=== PATIENT | male | born 1985 | race Caucasian/White ===

== ENCOUNTER 2020-11-07 15:48 | Outpatient (REF) | payer MEDICAID, SELFPAY ==
--- NOTE | ~2020-11-07 | XR_ITS ---
EXAMINATION: XR ANKLE, LEFT CLINICAL INFORMATION: Left ankle pain COMPARISON: None TECHNIQUE: AP, lateral, and mortise views of the left ankle. FINDINGS: The bones and soft tissues are normal aside from mild soft tissue swelling laterally. No fracture. Alignment is anatomic. Joint spaces are maintained. No joint effusion. XR/XR ankle LT min 3V IMPRESSION: Mild soft tissue swelling laterally but no fracture seen.
== END 2020-11-07 15:49 | disposition home or self-care (01) ==
LOC: HO.XRAY 15:48
PROVIDERS: PCP Internal Medicine Geriatric Medicine; Visit Provider Internal Medicine Geriatric Medicine
DX: M25.572 Pain in left ankle and joints of left foot (principal)
CPT/HCPCS: 73610

== ENCOUNTER 2021-04-19 05:22 | Inpatient (IN) | payer MEDICAID, OTHER, SELFPAY ==
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
--- NOTE | ~2021-04-19 | XR_ITS ---
EXAMINATION: XR TOES, RIGHT CLINICAL INFORMATION: Rule out fracture. COMPARISON: None TECHNIQUE: 3 views of the right toes were obtained. FINDINGS: No acute fracture or malalignment. Bone mineralization is normal. Mild soft tissue swelling at the fourth toe. Joint spaces appear normal. The adjacent toes are unremarkable. XR/XR toe RT min 2V IMPRESSION: No appreciable phalangeal fractures of the right toes.
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
--- NOTE | ~2021-04-19 | XR_ITS ---
EXAMINATION: XR CERVICAL SPINE LATERAL VIEW CLINICAL INFORMATION: Pain. COMPARISON: CT cervical spine 04/24/2021 TECHNIQUE: Single portable frontal view of the cervical spine is performed as per request. FINDINGS: There is rightward tilting cervical spine similar to the CT study. There is no visible interval bony abnormality. Lung apices are clear. No cervical rib.
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
[2021-04-19 05:28] VITALS: BP 112/68; PULSE 74; RESP 18; TEMP 36.4; O2SAT 100; BMI 23.6
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
--- NOTE | 2021-04-19 06:02 | PC.NURSE ---
patient moved to 22 due to another patients behaviors working up this patient.
--- NOTE | 2021-04-19 06:05 | ED_ITS ---
HPI - Psych General Chief Complaint: Psychiatric Symptoms Stated Complaint: PSYCH EVAL,OFF MEDS Time Seen by Provider: 04/19/21 05:55 Source: patient Mode of arrival: ambulatory Limitations: no limitations History of Present Illness HPI Narrative: Patient comes to the emergency room asking to be restarted on his medications Seroquel and Cymbalta. Patient also requesting to be sent to respite. Patient states that he was recently discharged from [facility], he was there for about 5 weeks. Patient states that there was some miscommunication with his prescriptions, the pharmacy never received them. Patient was not able to get in touch with the providers full originally prescribed the Cymbalta and the Seroquel. Patient also complaining of moist itchy feet. Related Data Allergies Allergy/AdvReac Type Severity Reaction Status Date / Time haloperidol [From HALDOL] Allergy Severe DYSTONIA Unverified 02/14/20 17:15 ziprasidone [From GEODON] Allergy Severe DYSTONIA Unverified 02/14/20 17:15 Review of Systems Review of Systems: Constitutional : No Weight loss, No Fever, No Chills, No Night Sweats, No Fatigue, No Malaise ENT/Mouth : No Hearing loss, No Ear Pain, No Nasal Congestion, No Sinus Pain, No Hoarseness, No sore throat, No Rhinorrhea, No Swallowing Difficulty Eyes: No Eye Pain, No Swelling, No Redness, No Foreign Body, No Discharge, No Vision Changes Cardiovascular : No Chest Pain, No SOB, No Dyspnea on Exertion, No Orthopnea, No Edema, No Palpitations Respiratory : No Cough, No Sputum, No Wheezing, No Smoke Exposure, No Dyspnea Gastrointestinal : No Nausea, No Vomiting, No Diarrhea, No Constipation, No abdominal Pain, No Hematochezia, No Melena Genitourinary : no irregular bleeding, No Dysuria, No Urinary Frequency, No Hematuria, No Urinary Incontinence, No Urgency, No Flank Pain, No Urinary Flow Changes, No Hesitancy Musculoskeletal : No joint pain, No Myalgias, No Joint Swelling Skin : Complaining of moist itchy feet Neuro : No Weakness, No Numbness, No Paresthesias, No Loss of Consciousness, No Dizziness, No Headache Psych patient denies suicidal or homicidal ideation, patient requesting to be restarted on psych meds Heme/Lymph: No Bruising, No Bleeding,No Lymphadenopathy Endocrine : No Polyuria, No Polydipsia, No Temperature Intolerance PMF Past Medical History Medical History Asthma Bipolar 1 disorder, depressed Psychosis Schizoaffective disorder Physical Exam Vital Signs: Vital Signs: Last Vital Signs Temp 97.6 F 04/19/21 05:28 Pulse 74 04/19/21 05:28 Resp 18 04/19/21 05:28 BP 112/68 04/19/21 05:28 Pulse Ox 100 04/19/21 05:28 Body Mass Index 23.6 Const: Other: Appearance: Alert. Oriented X3. No acute distress. Eyes: Pupils equal, round and reactive to light. Old eye echemosis healing ENT: Pharynx normal. Neck: Normal inspection. Neck supple. No lymph nodes noted. No crepitus CVS: Normal heart rate and rhythm. Pulses normal. Normal S1 and S2 Respiratory: No respiratory distress. Breath sounds normal. No Wheezing. No rales Abdomen: Soft and nontender. No rigidity. No distention. good BS x4 Skin: Skin warm and dry. Normal skin color. Normal skin turgor. Extremities: No lower extremity edema. Both feet have multiple blisters in the soles, also seems to have an athlete's foot rash Neuro: Oriented X 3. No motor deficit. No sensory deficit. Moving all extermities. No slurred speech. Course Course Course Narrative: Behavioral health/care team consult pending, patient requesting to be sent to respite. At this time, patient is not suicidal or homicidal, no Section 12 needed at this time Discharge Plan Discharge Clinical Impression: Bipolar disorder, Athletes foot
[2021-04-19] MEDS: Clotrimazole 1 % Cream 15 GM TUBE 1 APPL TOPICAL (09:08)
--- NOTE | 2021-04-19 09:13 | PC.NURSE ---
Pt alert, tearful but doesnt give much details on current mental state. Confirms recent admission to [facility] and inability to fill meds. Feeling depressed by denies SI or HI to this RN. Denies AH or VH but when speaking to pt, pt easily distracted and at times looks around as if responding to internal stimuli. Cream applied to feet. Pt Observer at bedside
--- NOTE | 2021-04-19 10:12 | PC.NURSE ---
section 12 bedsearch. ate breakfast
[2021-04-19 12:00] VITALS: RESP 18
--- NOTE | 2021-04-19 12:00 | PC.NURSE ---
patient sleeping, rr 17-18
[2021-04-19 13:49] VITALS: BP 118/74; PULSE 80; RESP 20; TEMP 36.4; O2SAT 98
--- NOTE | 2021-04-19 15:20 | PC.NURSE ---
patient a&ox3, iv inserted, labs drawn, patient noted to have rt facial droop- with rt facial swelling noted, pt has equal folder operator and strength in upper/lower extremities, no arm drift noted, speaking in clear/full sentences, able to close both eyes equally.
[2021-04-19 15:34] LABS: COVID-19 Test Negative (Negative); IDNOW Serial# 55D5AD1C
[2021-04-20 00:22] VITALS: BP 103/68; PULSE 73; RESP 16; TEMP 36.9; O2SAT 100
--- NOTE | 2021-04-20 05:28 | PC.NURSE ---
Patient was up whole night, no distress observed/reported, behavior non concerning with ritualistic presentation, hyper-verbal, thought process coherent, thought content clear, vss, will continue to monitor.
--- NOTE | 2021-04-20 05:40 | PC.NURSE ---
Patient disposition is section 12 inpatient bed search
--- NOTE | 2021-04-20 07:47 | PC.NURSE ---
patient appears to remain at rest was awake at beginning of shift respirations are even and unlabored, patient appears in no distress
[2021-04-20 08:17] LABS: Amphetamine Screen Urine Not Detected (Not Detect); Barbiturates, Urine Not Detected (Not Detect); Benzodiazepines Screen Urine Not Detected (Not Detect); Cannabinoid Screen Urine Not Detected (Not Detect); Cocaine Screen Urine Not Detected (Not Detect); Fentanyl, urine Not Detected (Not Detect); Opiate Screen Urine Not Detected (Not Detect); Phencyclidine Screen Urine Not Detected (Not Detect)
[2021-04-20 15:46] VITALS: RESP 20
[2021-04-20 16:16] VITALS: BP 122/76; PULSE 100; RESP 18; TEMP 36.2; O2SAT 100
--- NOTE | 2021-04-20 16:57 | PC.NURSE ---
Pt agitated, stating he is leaving and will not stay here. Pt reoriented and redirected to situation, pt continues to state he wants to leave. Pt progressively getting more agitated pacing in his room, holding the middle finger up to the camera and yelling curse words. Pt offered PRN PO meds and is refusing all meds. MD made aware and medications ordered, security called, no meds given due to patient calming down and sitting on edge of bed. Pt sitting in bed intermittently talking to himself at this time, will continue to monitor.
[2021-04-20] MEDS: Haloperidol Lactate 5 MG/ML VIAL IM (18:48)
[2021-04-20] MEDS: LORazepam 2 MG/ML VIAL IM (18:49)
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
--- NOTE | 2021-04-20 19:17 | PC.NURSE ---
Pt very agitated, pt had papers that belonged to SARAH BETH Hdez and refused to give them back. Security called and patient continued to refuse to return papers. Security assisted in getting papers back to [employer]AH [employer] Hdez. Pt remains agitated yelling out loud and cursing. Per [employer]D and [employer] orders Haldol and Ativan given to patient at 1845. Pt cooperative and calm laying in bed after medication administration.
[2021-04-20 19:20] VITALS: BP 105/59; PULSE 95; RESP 16; TEMP 36.3; O2SAT 97
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
[2021-04-21 06:32] VITALS: BP 110/57; PULSE 91; RESP 18; TEMP 36.4; O2SAT 98
[2021-04-21 07:20] LABS: MANUAL DIFF FLAG NO
[2021-04-21 07:29] LABS: Basophils Percent Auto 0.4 % (0-2); Eosinophils Absolute Auto 0.1 X10*3/uL (0.0-0.4); Eosinophils Percent Auto 0.7 % (0-4); Hematocrit 45.1 % (42.0-52.0); Hemoglobin 14.7 g/dl (14.0-18.0); Imm Gran Abs Auto 0.04 X10*3/uL (0.00-0.03); Imm Gran Pct Auto 0.5 % (0.0-0.4); Lymphocytes Absolute Auto 1.6 X10*3/uL (1.2-4.9); Lymphocytes Percent Auto 20.8 % (20-40); Mean Corpuscular HGB Conc 32.6 g/dl (31.0-36.0); Mean Corpuscular Hemoglobin 27.2 pg (27.0-33.0); Mean Corpuscular Volume 83.4 fL (80.0-98.0); Mean Platelet Volume 9.7 fL (9.4-12.4); Monocytes Absolute Auto 0.6 X10*3/uL (0.1-1.2); Monocytes Percent Auto 7.9 % (2-11); Neutrophils Absolute Auto 5.2 x10*3/uL (2.0-8.3); Neutrophils Percent Auto 69.7 % (45-73); Platelet Count 234 X10*3/uL (160-400); Red Blood Count 5.41 X10*6/uL (4.60-5.80); Red Cell Distribution Width 13.7 % (11.0-16.0); White Blood Count 7.5 X10*3/uL (4.8-10.8)
[2021-04-21 07:32] LABS: Estimated Average Glucose 103 mg/dL; Hemoglobin A1c % 5.2 %
[2021-04-21 07:48] LABS: Alanine Aminotransferase 25 U/L (0-40); Alkaline Phosphatase 56 U/L (39-117); Anion Gap 11 (12-20); Aspartate Amino Transferase 32 U/L (5-37); Bilirubin Direct 0.3 mg/dL (0.0-0.5); Bilirubin Total 0.5 mg/dL (0.0-1.0); Blood Urea Nitrogen 17 mg/dL (9-16); Calcium 9.3 mg/dL (8.4-10.2); Carbon Dioxide 26 mmol/L (22-29); Chloride 105 mmol/L (96-108); Cholesterol 125 mg/dL; Estimated Glomerular Filt Rate > 60; Glucose Fasting 97 mg/dL (60-99); HDL Cholesterol 42 mg/dL; LDL Cholesterol Calculated 68 mg/dl; Magnesium 2.1 mg/dL (1.6-2.6); Potassium 4.3 mmol/L (3.3-5.1); Sodium 138 mmol/L (135-145); Total Protein 6.1 g/dL (6.5-8.0); Triglycerides 79 mg/dL
[2021-04-21 08:08] LABS: Free T4 (Free Thyroxine) 0.99 ng/dL (0.71-1.85)
[2021-04-21 08:20] LABS: Folate 11.9 ng/mL (> or = 4.0); Vitamin B12 332 pg/mL (200-900)
--- NOTE | 2021-04-21 10:00 | PC.NURSE ---
PT SIGNED A 3 DAY NOTICE ON 04/21/2021. UP ON Tuesday04/27/2021.
--- NOTE | 2021-04-21 12:44 | PC.NURSE ---
Patient reports he is a non smoker and has never smoked. Patient reports he recieved th eflu shot already this year and will not need one.
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
[2021-04-22] MEDS: DULoxetine HCl 20 MG CAPSULE.DR PO (08:32)
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
[2021-04-22 18:00] VITALS: BP 119/78; PULSE 69; RESP 16; TEMP 36.3; O2SAT 98
[2021-04-23 06:00] VITALS: BP 140/67; PULSE 71; RESP 17; TEMP 36.8; O2SAT 100
--- NOTE | 2021-04-23 10:18 | P.PNPSI_ITS ---
Subjective Subjective Date of Service: 04/23/21 Reason For Visit: Schizophrenia Subjective Notes: Section 12B Healthcare Proxy: No Guardianship: No Medical Problems Affecting Mental Status: No Interim History: Pt reports he is sleeping, nursing reports no sleep x 2 nights, patient says people are lying to him- and about him Medication Compliance: No Side effects from medications: No Attending Groups: No Review of Systems Acute medical concerns: No Medical Review of Systems: unchanged Mental Status Exam Mental Status Exam Patient Appearance: Disheveled Patient Orientation: Person, Place, Time and Situation Level of Consciousness: Awake Patient Behavior: Hyperactive and Cooperative Thought Content: positive for Circumstantial Abnormal Motor Activity Signs and Symptoms: Hyperactivity and Restlessness Judgement: Poor Diagnostics Vital Signs (24Hr): Vital Signs - 24 hr 04/22/21 18:00 04/23/21 06:00 Temperature 97.4 F 98.2 F Pulse Rate 69 71 Respiratory Rate 16 17 Blood Pressure 119/78 140/67 H Pulse Oximetry 98 100 Body Mass Index 23.6 Labs Results: 04/21/21 07:08 04/21/21 07:08 Imaging Radiology Impressions: ITS Impressions Face X-Ray 04/21/21 15:29 IMPRESSION: No fracture seen. Orbit X-Ray 04/21/21 15:29 IMPRESSION: No fracture seen. Medications Medications Current Medications Acetaminophen (Acetaminophen 325 Mg Tablet) 650 mg PO Q6H PRN PRN Reason: Headache/Pain Mild Scale (1-3) Al Hydroxide/Mg Hydroxide (Magnesium Hydrox/Alum Hydrox 30 Ml Oral.Susp) 30 ml PO Q6H PRN PRN Reason: Heartburn/Nausea Diphenhydramine HCl (Diphenhydramine Hcl 25 Mg Tablet) 50 mg PO Q4H PRN PRN Reason: agitation Diphenhydramine HCl (Diphenhydramine Hcl 25 Mg Tablet) 50 mg PO Q6H PRN PRN Reason: for EPS Hydroxyzine HCl (Hydroxyzine Hcl 25 Mg Tablet) 25 mg PO QID PRN PRN Reason: Anxiety Lorazepam (Lorazepam 1 Mg Tablet) 2 mg PO Q4H PRN PRN Reason: agitation Magnesium Hydroxide (Milk Of Magnesia 30 Ml Oral.Susp) 30 ml PO DAILY PRN PRN Reason: Constipation Nicotine (Nicotine 21 Mg Patch.Td24) 21 mg TRANSDERMA DAILY PRN PRN Reason: smoking cessation Nicotine Polacrilex (Nicotine Polacrilex 2 Mg Gum) 4 mg BUCCAL Q2H PRN PRN Reason: Nicotine Cravings Olanzapine (Olanzapine 5 Mg Tablet) 5 mg PO Q4H PRN PRN Reason: agitation Polyethylene Glycol (Polyethylene Glycol 3350 17 Gm Powd.Pack) 17 gm PO DAILY PRN PRN Reason: CONSTIPATION Quetiapine Fumarate (Quetiapine Fumarate 50 Mg Tablet) 50 mg PO BID PRN PRN Reason: anxiety,agitation Quetiapine Fumarate (Quetiapine Fumarate 300 Mg Tablet) 600 mg PO BEDTIME [facility] Last Admin: 04/22/21 21:22 Dose: Not Given Documented by: Senna (Sennosides 8.6 Mg Tablet) 17.2 mg PO BEDTIME [facility] Last Admin: 04/22/21 21:21 Dose: Not Given Documented by: Trazodone HCl (Trazodone Hcl 50 Mg Tablet) 50 mg PO BEDTIME PRN PRN Reason: Insomnia Allergies Allergies Allergy/AdvReac Type Severity Reaction Status Date / Time haloperidol [From HALDOL] Allergy Severe DYSTONIA Verified 04/19/21 06:28 ziprasidone [From GEODON] Allergy Severe DYSTONIA Verified 04/19/21 06:28 Assessment & Plan Assessment & Plan (1) Schizoaffective disorder, bipolar type: Status: Acute Code(s): F25.0 - Schizoaffective disorder, bipolar type Assessment and Plan: Asif is a 35 y.o. Male who carries a dx of schizoaffective disorder bipolar type. He is presenting with agitation, disorganized thought process, and paranoia. He has hx of depression and episodes of hyposomnia. He is currently non-adherent with medications and was recently discharged from psych hospitalization. Per pt, he was prescribed seroquel and cymbalta. Of note, pt has haldol listed as an allergy (dystonia), however was administered IM haldol 5 mg by ED physician due to acute agitation, aggressive behaviors. Will order benadryl 50 mg PRN for EPS, however pt was initially assessed in the ED and when re-evaluated on the unit, he did not exhibit adverse reaction and appeared much calmer, redirectable. Plan: Pt had asked to restart seroquel and cymbalta, will defer to primary team. Will obtain discharge summary from [facility] in [place] (pt has not signed any releases). Pt admitted on section 12b. Monitor response to medications. Monitor for safety in the milieu. Discharge on stabilization. Patient seen. Chart reviewed. Discussed with team. Obtain collateral contact info?as needed 04/22/21 Increase Seroquel to 600 mg hs-by history this was his dose in hospital~9 days ago. He asked to decrease but today is experiencing response to internal stimuli. I spent minutes with the patient and/or on the patient floor today, greater than?50% of which was spent counseling/coordinating care. Patient educated on: medication risk/benefits and therapeutic strategies Informed Consent: understands and further education needed Reason for contiued inpatient stay Substantial Risk for: inability to function and rapid decompensation
[2021-04-23 18:53] VITALS: BP 109/78; PULSE 91; RESP 16; TEMP 36.7; O2SAT 98
[2021-04-23] MEDS: QUEtiapine Fumarate 400 MG TABLET PO (23:14)
[2021-04-23] MEDS: QUEtiapine Fumarate 50 MG TABLET PO (23:14)
[2021-04-24 06:00] VITALS: BP 108/56; PULSE 64; RESP 18; TEMP 36.6; O2SAT 99
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
[2021-04-24] MEDS: OLANZapine 10 MG VIAL IM (11:19)
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
[2021-04-24] MEDS: Mineral Oil/Petrolatum,White 106 GM Tube 1 APPL TOPICAL (14:38)
--- NOTE | 2021-04-24 16:47 | HO.PSYCHPN ---
Subjective Subjective Reason For Visit: Schizophrenia Diagnostics Vital Signs (24Hr): Vital Signs - 24 hr 04/23/21 18:53 04/24/21 06:00 Temperature 98.1 F 97.9 F Pulse Rate 91 64 Respiratory Rate 16 18 Blood Pressure 109/78 108/56 L Pulse Oximetry 98 99 Body Mass Index 23.6 Labs Results: 04/21/21 07:08 04/21/21 07:08 Imaging Radiology Impressions: ITS Impressions Face X-Ray 04/21/21 15:29 IMPRESSION: No fracture seen. Orbit X-Ray 04/21/21 15:29 IMPRESSION: No fracture seen. Medications Medications Current Medications Acetaminophen (Acetaminophen 325 Mg Tablet) 650 mg PO Q6H PRN PRN Reason: Headache/Pain Mild Scale (1-3) Al Hydroxide/Mg Hydroxide (Magnesium Hydrox/Alum Hydrox 30 Ml Oral.Susp) 30 ml PO Q6H PRN PRN Reason: Heartburn/Nausea Aripiprazole (Aripiprazole 15 Mg Tablet) 15 mg PO BEDTIME [facility] Diphenhydramine HCl (Diphenhydramine Hcl 25 Mg Tablet) 50 mg PO Q4H PRN PRN Reason: agitation Hydroxyzine HCl (Hydroxyzine Hcl 25 Mg Tablet) 25 mg PO QID PRN PRN Reason: Anxiety Lorazepam (Lorazepam 1 Mg Tablet) 2 mg PO Q4H PRN PRN Reason: agitation Magnesium Hydroxide (Milk Of Magnesia 30 Ml Oral.Susp) 30 ml PO DAILY PRN PRN Reason: Constipation Multi-Ingred Cream/Lotion/Oil/Oint (Mineral Oil/Petrolatum,White 106 Gm Tube) 1 appl TOPICAL TID [facility]; Protocol Last Admin: 04/24/21 14:38 Dose: 1 appl Documented by: Nicotine (Nicotine 21 Mg Patch.Td24) 21 mg TRANSDERMA DAILY PRN PRN Reason: smoking cessation Nicotine Polacrilex (Nicotine Polacrilex 2 Mg Gum) 4 mg BUCCAL Q2H PRN PRN Reason: Nicotine Cravings Olanzapine (Olanzapine 10 Mg Tablet) 10 mg PO Q4H PRN PRN Reason: agitation Polyethylene Glycol (Polyethylene Glycol 3350 17 Gm Powd.Pack) 17 gm PO DAILY PRN PRN Reason: CONSTIPATION Senna (Sennosides 8.6 Mg Tablet) 17.2 mg PO BEDTIME [facility] Last Admin: 04/23/21 23:15 Dose: Not Given Documented by: Trazodone HCl (Trazodone Hcl 50 Mg Tablet) 50 mg PO BEDTIME PRN PRN Reason: Insomnia Allergies Allergies Allergy/AdvReac Type Severity Reaction Status Date / Time haloperidol [From HALDOL] Allergy Severe DYSTONIA Verified 04/19/21 06:28 ziprasidone [From GEODON] Allergy Severe DYSTONIA Verified 04/19/21 06:28 Assessment & Plan Assessment & Plan (1) Schizoaffective disorder, bipolar type: Status: Acute Code(s): F25.0 - Schizoaffective disorder, bipolar type Assessment and Plan: Asif is a 35 y.o. Male who carries a dx of schizoaffective disorder bipolar type. He is presenting with agitation, disorganized thought process, and paranoia. He has hx of depression and episodes of hyposomnia. He is currently non-adherent with medications and was recently discharged from psych hospitalization. Per pt, he was prescribed seroquel and cymbalta. Of note, pt has haldol listed as an allergy (dystonia), however was administered IM haldol 5 mg by ED physician due to acute agitation, aggressive behaviors. Will order benadryl 50 mg PRN for EPS, however pt was initially assessed in the ED and when re-evaluated on the unit, he did not exhibit adverse reaction and appeared much calmer, redirectable. Plan: Pt had asked to restart seroquel and cymbalta, will defer to primary team. Will obtain discharge summary from [facility] in [place] (pt has not signed any releases). Pt admitted on section 12b. Monitor response to medications. Monitor for safety in the milieu. Discharge on stabilization. Patient seen. Chart reviewed. Discussed with team. Obtain collateral contact info?as needed 04/22/21 Increase Seroquel to 600 mg hs-by history this was his dose in hospital~9 days ago. He asked to decrease but today is experiencing response to internal stimuli. I spent minutes with the patient and/or on the patient floor today, greater than?50% of which was spent counseling/coordinating care.
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
[2021-04-24] MEDS: Sennosides 8.6 MG TABLET 17.2 MG PO (20:29)
[2021-04-24] MEDS: ARIPiprazole 15 MG TABLET PO (20:29)
[2021-04-25 06:00] VITALS: BP 130/77; PULSE 106; RESP 18; TEMP 36.5; O2SAT 95
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
[2021-04-25] MEDS: Mineral Oil/Petrolatum,White 106 GM Tube 1 APPL TOPICAL (08:42)
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
[2021-04-25 22:00] VITALS: BP 136/59; PULSE 59; TEMP 36.7
[2021-04-25] MEDS: ARIPiprazole 15 MG TABLET PO (23:53)
[2021-04-26 06:00] VITALS: BP 113/73; PULSE 80; RESP 18; TEMP 36.6; O2SAT 100
[2021-04-26] MEDS: Mineral Oil/Petrolatum,White 106 GM Tube 1 APPL TOPICAL (08:31)
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
[2021-04-26 22:30] VITALS: BP 129/71; PULSE 108; TEMP 36.7
[2021-04-27] MEDS: ARIPiprazole 15 MG TABLET PO (00:42)
[2021-04-27 06:00] VITALS: BP 119/73; PULSE 92; RESP 18; TEMP 37.1; O2SAT 97
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
[2021-04-27 17:52] VITALS: BP 116/53; PULSE 85; TEMP 36.3; O2SAT 97
[2021-04-28 06:00] VITALS: BP 117/69; PULSE 78; TEMP 36.6
[2021-04-28] MEDS: Mineral Oil/Petrolatum,White 106 GM Tube 1 APPL TOPICAL (08:32)
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
[2021-04-28] MEDS: diphenhydrAMINE HCL 25 MG TABLET 50 MG PO (20:42)
[2021-04-28] MEDS: LORazepam 1 MG TABLET 2 MG PO (20:43)
[2021-04-28] MEDS: OLANZapine 10 MG TABLET PO (20:43)
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
[2021-04-30 06:00] VITALS: BP 131/58; PULSE 100; O2SAT 99
--- NOTE | 2021-04-30 19:03 | HO.PSYCHPN ---
Subjective Subjective Date of Service: 04/30/21 Reason For Visit: Schizophrenia Interim History: Real Property Evaluator met with patient after court hearing; he was initially angry and did not want talk to magnetic tape typewriter operator however he later came up in thanked magnetic tape typewriter operator for the things he said during court; he says he will be calm on the unit but does not want to stay very long at all and does not want medications at all. Mental Status Exam Mental Status Exam Narrative: Pt is alert and oriented to self, place but not situation;? behavior is guarded at first, but then talkative; patient is not in distress; dressed in casual attire with unkempt cloths, hair, facial bruises; mood is described as irritable and and affect intense; eye contact intense; Speech is pressured and difficult to interrupt; normal volume; some psychomotor agitation present; thought process can be goal oriented but mostly disorganized. Thought content not needing to be in hospital; delusional and paranoid ideations; denies any SI/HI. Denies AVH.? Patients insight and judgment impaired. Diagnostics Vital Signs (24Hr): Vital Signs - 24 hr 04/30/21 06:00 Pulse Rate 100 Blood Pressure 131/58 L Pulse Oximetry 99 BMI result Body Mass Index 23.6 Labs Results: 04/21/21 07:08 04/21/21 07:08 Imaging Radiology Impressions: ITS Impressions Face X-Ray 04/21/21 15:29 IMPRESSION: No fracture seen. Orbit X-Ray 04/21/21 15:29 IMPRESSION: No fracture seen. Cervical Spine CT 04/24/21 22:24 IMPRESSION: No evidence of acute intracranial abnormalities. No evidence of acute maxillofacial fractures. However, evaluation of the inferior mandibular body is limited due to motion and although no definite fractures or surrounding soft tissue thickening/hematoma are identified, clinical correlation for pain/tenderness in the inferior mandible should be obtained as this is suboptimally assessed in this study. No acute cervical fractures or malalignment. Face CT 04/24/21 22:24 IMPRESSION: No evidence of acute intracranial abnormalities. No evidence of acute maxillofacial fractures. However, evaluation of the inferior mandibular body is limited due to motion and although no definite fractures or surrounding soft tissue thickening/hematoma are identified, clinical correlation for pain/tenderness in the inferior mandible should be obtained as this is suboptimally assessed in this study. No acute cervical fractures or malalignment. Head CT 04/24/21 22:24 IMPRESSION: No evidence of acute intracranial abnormalities. No evidence of acute maxillofacial fractures. However, evaluation of the inferior mandibular body is limited due to motion and although no definite fractures or surrounding soft tissue thickening/hematoma are identified, clinical correlation for pain/tenderness in the inferior mandible should be obtained as this is suboptimally assessed in this study. No acute cervical fractures or malalignment. Medications Medications Current Medications Acetaminophen (Acetaminophen 325 Mg Tablet) 650 mg PO Q6H PRN PRN Reason: Headache/Pain Mild Scale (1-3) Al Hydroxide/Mg Hydroxide (Magnesium Hydrox/Alum Hydrox 30 Ml Oral.Susp) 30 ml PO Q6H PRN PRN Reason: Heartburn/Nausea Aripiprazole (Aripiprazole 20 Mg Tablet) 20 mg PO BEDTIME MARGAUX Last Admin: 04/29/21 22:59 Dose: Not Given Documented by: Diphenhydramine HCl (Diphenhydramine Hcl 25 Mg Tablet) 50 mg PO Q4H PRN PRN Reason: agitation Last Admin: 04/28/21 20:42 Dose: 50 mg Documented by: Hydroxyzine HCl (Hydroxyzine Hcl 25 Mg Tablet) 25 mg PO QID PRN PRN Reason: Anxiety Lorazepam (Lorazepam 1 Mg Tablet) 2 mg PO Q4H PRN PRN Reason: agitation Last Admin: 04/28/21 20:43 Dose: 2 mg Documented by: Magnesium Hydroxide (Milk Of Magnesia 30 Ml Oral.Susp) 30 ml PO DAILY PRN PRN Reason: Constipation Multi-Ingred Cream/Lotion/Oil/Oint (Mineral Oil/Petrolatum,White 106 Gm Tube) 1 appl TOPICAL TID MARGAUX; Protocol Last Admin: 04/30/21 14:16 Dose: Not Given Documented by: Nicotine (Nicotine 21 Mg Patch.Td24) 21 mg TRANSDERMA DAILY PRN PRN Reason: smoking cessation Nicotine Polacrilex (Nicotine Polacrilex 2 Mg Gum) 4 mg BUCCAL Q2H PRN PRN Reason: Nicotine Cravings Olanzapine (Olanzapine 10 Mg Tablet) 10 mg PO Q4H PRN PRN Reason: agitation Last Admin: 04/28/21 20:43 Dose: 10 mg Documented by: Polyethylene Glycol (Polyethylene Glycol 3350 17 Gm Powd.Pack) 17 gm PO DAILY PRN PRN Reason: CONSTIPATION Senna (Sennosides 8.6 Mg Tablet) 17.2 mg PO BEDTIME MARGAUX Last Admin: 04/29/21 22:59 Dose: Not Given Documented by: Trazodone HCl (Trazodone Hcl 50 Mg Tablet) 50 mg PO BEDTIME PRN PRN Reason: Insomnia Allergies Allergies Allergy/AdvReac Type Severity Reaction Status Date / Time haloperidol [From HALDOL] Allergy Severe DYSTONIA Verified 04/19/21 06:28 ziprasidone [From GEODON] Allergy Severe DYSTONIA Verified 04/19/21 06:28 Assessment & Plan Assessment & Plan (1) Schizoaffective disorder, bipolar type: Status: Acute Code(s): F25.0 - Schizoaffective disorder, bipolar type Assessment and Plan: Pt has decided that he is not in need of medications and he is prepared to discharge. He discussed wanting to sign a conditional voluntary to then discharge. He reports he is not in need of any treatment. Discussed continuing to offer medications and care/treatment and continuing with court process to have pt receive a complete and fair hearing regarding his care. Assessment and Plan: Court ordered involuntary commitment on 04/30/2021; court will reconvene on to rule on substituted judgment for medications I spent minutes with the patient and/or on the patient floor today, greater than?50% of which was spent counseling/coordinating care. Reason for contiued inpatient stay Substantial Risk for: harm to self, harm to others and inability to function
[2021-05-01 05:30] VITALS: BP 106/60; PULSE 87; RESP 20; TEMP 36.8; O2SAT 98
[2021-05-01] MEDS: Mineral Oil/Petrolatum,White 106 GM Tube 1 APPL TOPICAL (09:54)
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
--- NOTE | 2021-05-02 08:30 | HO.PSYCHPN ---
Subjective Subjective Date of Service: 05/02/21 Reason For Visit: Schizophrenia Interim History: Patient seen and discussed with team. Patient evaluated this morning and upon interview he reports Im actually doing pretty well. Denies having questions, no concerns. Pt appears internally preoccupied, easily agitated, punching the air, constricted affect. States I dont take medication. Has been non-adherent with PO abilify. Mood is fine. Shortly after start of interview, pt refused to answer questions, eye contact poor, internally preoccupied. In the milieu, patient is isolative in his room, agitated with interventions by staff. Mental Status Exam Mental Status Exam Narrative: Patient Appearance:?Appropriate Patient Orientation:?Person, Place, Time and Situation Level of Consciousness:?Alert Patient Behavior:?Guarded, Talkative, Suspicious, Restless, Anxious, Fearful, Resistive to Care, Fatigued, Distractible and Impulsive Mood Description:?Withdrawn and Constricted Affect Description:?Constricted Patient Cognition Impaired:?Yes Ability to Follow Directions:?Fair Speech Pattern:?Perseverating, Spontaneous Speech and Soft-Spoken Memory Description:?Remote Impaired and Episodic Impaired Hallucinations:?Auditory and Visual Delusions:?Being Controlled, Paranoid Ideation, Grandiose and Present Perceptual Disturbances:?Depersonalization and Derealization Thought Process:?Illogical, Distracted and Rumination Thought Content:?positive for [place], positive for Circumstantial, positive for Perseveration and positive for Preoccupation Depressive Symptoms:?Increased Anxiety, Diff. Making Decisions, Increased Irritability, Feelings of Guilt, Increased Fatigue, Low Self Esteem and Difficulty Concentrating Abnormal Motor Activity Signs and Symptoms:?Restlessness Judgement:?Poor Diagnostics Vital Signs (24Hr): BMI result Body Mass Index 23.6 Labs Results: 04/21/21 07:08 04/21/21 07:08 Imaging Radiology Impressions: ITS Impressions Face X-Ray 04/21/21 15:29 IMPRESSION: No fracture seen. Orbit X-Ray 04/21/21 15:29 IMPRESSION: No fracture seen. Cervical Spine CT 04/24/21 22:24 IMPRESSION: No evidence of acute intracranial abnormalities. No evidence of acute maxillofacial fractures. However, evaluation of the inferior mandibular body is limited due to motion and although no definite fractures or surrounding soft tissue thickening/hematoma are identified, clinical correlation for pain/tenderness in the inferior mandible should be obtained as this is suboptimally assessed in this study. No acute cervical fractures or malalignment. Face CT 04/24/21 22:24 IMPRESSION: No evidence of acute intracranial abnormalities. No evidence of acute maxillofacial fractures. However, evaluation of the inferior mandibular body is limited due to motion and although no definite fractures or surrounding soft tissue thickening/hematoma are identified, clinical correlation for pain/tenderness in the inferior mandible should be obtained as this is suboptimally assessed in this study. No acute cervical fractures or malalignment. Head CT 04/24/21 22:24 IMPRESSION: No evidence of acute intracranial abnormalities. No evidence of acute maxillofacial fractures. However, evaluation of the inferior mandibular body is limited due to motion and although no definite fractures or surrounding soft tissue thickening/hematoma are identified, clinical correlation for pain/tenderness in the inferior mandible should be obtained as this is suboptimally assessed in this study. No acute cervical fractures or malalignment. Medications Medications Current Medications Acetaminophen (Acetaminophen 325 Mg Tablet) 650 mg PO Q6H PRN PRN Reason: Headache/Pain Mild Scale (1-3) Al Hydroxide/Mg Hydroxide (Magnesium Hydrox/Alum Hydrox 30 Ml Oral.Susp) 30 ml PO Q6H PRN PRN Reason: Heartburn/Nausea Aripiprazole (Aripiprazole 20 Mg Tablet) 20 mg PO BEDTIME MARGAUX Last Admin: 05/02/21 21:08 Dose: Not Given Documented by: Diphenhydramine HCl (Diphenhydramine Hcl 25 Mg Tablet) 50 mg PO Q4H PRN PRN Reason: agitation Last Admin: 04/28/21 20:42 Dose: 50 mg Documented by: Hydroxyzine HCl (Hydroxyzine Hcl 25 Mg Tablet) 25 mg PO QID PRN PRN Reason: Anxiety Lorazepam (Lorazepam 1 Mg Tablet) 2 mg PO Q4H PRN PRN Reason: agitation Last Admin: 04/28/21 20:43 Dose: 2 mg Documented by: Magnesium Hydroxide (Milk Of Magnesia 30 Ml Oral.Susp) 30 ml PO DAILY PRN PRN Reason: Constipation Multi-Ingred Cream/Lotion/Oil/Oint (Mineral Oil/Petrolatum,White 106 Gm Tube) 1 appl TOPICAL TID MARGAUX; Protocol Last Admin: 05/03/21 08:22 Dose: Not Given Documented by: Nicotine (Nicotine 21 Mg Patch.Td24) 21 mg TRANSDERMA DAILY PRN PRN Reason: smoking cessation Nicotine Polacrilex (Nicotine Polacrilex 2 Mg Gum) 4 mg BUCCAL Q2H PRN PRN Reason: Nicotine Cravings Olanzapine (Olanzapine 10 Mg Tablet) 10 mg PO Q4H PRN PRN Reason: agitation Last Admin: 04/28/21 20:43 Dose: 10 mg Documented by: Olanzapine (Olanzapine 10 Mg Vial) 10 mg IM DAILY PRN PRN Reason: severe agitation Polyethylene Glycol (Polyethylene Glycol 3350 17 Gm Powd.Pack) 17 gm PO DAILY PRN PRN Reason: CONSTIPATION Senna (Sennosides 8.6 Mg Tablet) 17.2 mg PO BEDTIME MARGAUX Last Admin: 05/02/21 21:08 Dose: Not Given Documented by: Trazodone HCl (Trazodone Hcl 50 Mg Tablet) 50 mg PO BEDTIME PRN PRN Reason: Insomnia Allergies Allergies Allergy/AdvReac Type Severity Reaction Status Date / Time haloperidol [From HALDOL] Allergy Severe DYSTONIA Verified 04/19/21 06:28 ziprasidone [From GEODON] Allergy Severe DYSTONIA Verified 04/19/21 06:28 Assessment & Plan Assessment & Plan (1) Schizoaffective disorder, bipolar type: Status: Acute Code(s): F25.0 - Schizoaffective disorder, bipolar type Assessment and Plan: Pt has decided that he is not in need of medications and he is prepared to discharge. He discussed wanting to sign a conditional voluntary to then discharge. He reports he is not in need of any treatment. Discussed continuing to offer medications and care/treatment and continuing with court process to have pt receive a complete and fair hearing regarding his care. Assessment and Plan: Court ordered involuntary commitment on 04/30/2021; court will reconvene on to rule on substituted judgment for medications Weekend coverage: 05/02- Pt has been refusing PO medication, appears psychotic, internally preoccupied, agitated. I spent minutes with the patient and/or on the patient floor today, greater than?50% of which was spent counseling/coordinating care. Reason for contiued inpatient stay Substantial Risk for: inability to function, rapid decompensation and med/psych decompensation
--- NOTE | 2021-05-03 14:33 | HO.PSYCHPN ---
Subjective Subjective Date of Service: 05/03/21 Reason For Visit: Schizophrenia Interim History: Patient seen and discussed with team. Per senior staff specialized employment, pt was found in his room gesturing intercourse with the air. Patient evaluated this morning and upon interview, he asks has someone figured out when im going home? He is found lying down in his room, staring at ceiling. Has been refusing PO abilify, says I dont really need it, im not really refusing, and that I just want to show them this is me without medication, im okay. Says can you put in an order to give me a sugar pill? Pt is gesturing punching motions in air. 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 Pt appears internally preoccupied, paranoid, and guarded. Says he feels safe. Affect constricted, agitated at times. Medication Compliance: No Attending Groups: No Review of Systems Acute medical concerns: No Medical Review of Systems: unchanged Mental Status Exam Mental Status Exam Narrative: Patient Appearance:?Appropriate Patient Orientation:?Person, Place, Time and Situation Level of Consciousness:?Alert Patient Behavior:?Guarded, Talkative, Suspicious, Restless, Anxious, Fearful, Resistive to Care, Fatigued, Distractible and Impulsive Mood Description:?Withdrawn and Constricted Affect Description:?Constricted Patient Cognition Impaired:?Yes Ability to Follow Directions:?Fair Speech Pattern:?Perseverating, Spontaneous Speech and Soft-Spoken Memory Description:?Remote Impaired and Episodic Impaired Hallucinations:?Auditory and Visual Delusions:?Being Controlled, Paranoid Ideation, Grandiose and Present Perceptual Disturbances:?Depersonalization and Derealization Thought Process:?Illogical, Distracted and Rumination Thought Content:?positive for [place], positive for Circumstantial, positive for Perseveration and positive for Preoccupation Depressive Symptoms:?Increased Anxiety, Diff. Making Decisions, Increased Irritability, Feelings of Guilt, Increased Fatigue, Low Self Esteem and Difficulty Concentrating Abnormal Motor Activity Signs and Symptoms:?Restlessness Judgement:?Poor Diagnostics Vital Signs (24Hr): BMI result Body Mass Index 23.6 Labs Results: 04/21/21 07:08 04/21/21 07:08 Imaging Radiology Impressions: ITS Impressions Face X-Ray 04/21/21 15:29 IMPRESSION: No fracture seen. Orbit X-Ray 04/21/21 15:29 IMPRESSION: No fracture seen. Cervical Spine CT 04/24/21 22:24 IMPRESSION: No evidence of acute intracranial abnormalities. No evidence of acute maxillofacial fractures. However, evaluation of the inferior mandibular body is limited due to motion and although no definite fractures or surrounding soft tissue thickening/hematoma are identified, clinical correlation for pain/tenderness in the inferior mandible should be obtained as this is suboptimally assessed in this study. No acute cervical fractures or malalignment. Face CT 04/24/21 22:24 IMPRESSION: No evidence of acute intracranial abnormalities. No evidence of acute maxillofacial fractures. However, evaluation of the inferior mandibular body is limited due to motion and although no definite fractures or surrounding soft tissue thickening/hematoma are identified, clinical correlation for pain/tenderness in the inferior mandible should be obtained as this is suboptimally assessed in this study. No acute cervical fractures or malalignment. Head CT 04/24/21 22:24 IMPRESSION: No evidence of acute intracranial abnormalities. No evidence of acute maxillofacial fractures. However, evaluation of the inferior mandibular body is limited due to motion and although no definite fractures or surrounding soft tissue thickening/hematoma are identified, clinical correlation for pain/tenderness in the inferior mandible should be obtained as this is suboptimally assessed in this study. No acute cervical fractures or malalignment. Medications Medications Current Medications Acetaminophen (Acetaminophen 325 Mg Tablet) 650 mg PO Q6H PRN PRN Reason: Headache/Pain Mild Scale (1-3) Al Hydroxide/Mg Hydroxide (Magnesium Hydrox/Alum Hydrox 30 Ml Oral.Susp) 30 ml PO Q6H PRN PRN Reason: Heartburn/Nausea Aripiprazole (Aripiprazole 20 Mg Tablet) 20 mg PO BEDTIME MARGAUX Last Admin: 05/02/21 21:08 Dose: Not Given Documented by: Diphenhydramine HCl (Diphenhydramine Hcl 25 Mg Tablet) 50 mg PO Q4H PRN PRN Reason: agitation Last Admin: 04/28/21 20:42 Dose: 50 mg Documented by: Hydroxyzine HCl (Hydroxyzine Hcl 25 Mg Tablet) 25 mg PO QID PRN PRN Reason: Anxiety Lorazepam (Lorazepam 1 Mg Tablet) 2 mg PO Q4H PRN PRN Reason: agitation Last Admin: 04/28/21 20:43 Dose: 2 mg Documented by: Magnesium Hydroxide (Milk Of Magnesia 30 Ml Oral.Susp) 30 ml PO DAILY PRN PRN Reason: Constipation Multi-Ingred Cream/Lotion/Oil/Oint (Mineral Oil/Petrolatum,White 106 Gm Tube) 1 appl TOPICAL TID MARGAUX; Protocol Last Admin: 05/03/21 14:21 Dose: Not Given Documented by: Nicotine (Nicotine 21 Mg Patch.Td24) 21 mg TRANSDERMA DAILY PRN PRN Reason: smoking cessation Nicotine Polacrilex (Nicotine Polacrilex 2 Mg Gum) 4 mg BUCCAL Q2H PRN PRN Reason: Nicotine Cravings Olanzapine (Olanzapine 10 Mg Tablet) 10 mg PO Q4H PRN PRN Reason: agitation Last Admin: 04/28/21 20:43 Dose: 10 mg Documented by: Polyethylene Glycol (Polyethylene Glycol 3350 17 Gm Powd.Pack) 17 gm PO DAILY PRN PRN Reason: CONSTIPATION Senna (Sennosides 8.6 Mg Tablet) 17.2 mg PO BEDTIME MARGAUX Last Admin: 05/02/21 21:08 Dose: Not Given Documented by: Trazodone HCl (Trazodone Hcl 50 Mg Tablet) 50 mg PO BEDTIME PRN PRN Reason: Insomnia Allergies Allergies Allergy/AdvReac Type Severity Reaction Status Date / Time haloperidol [From HALDOL] Allergy Severe DYSTONIA Verified 04/19/21 06:28 ziprasidone [From GEODON] Allergy Severe DYSTONIA Verified 04/19/21 06:28 Assessment & Plan Assessment & Plan (1) Schizoaffective disorder, bipolar type: Status: Acute Code(s): F25.0 - Schizoaffective disorder, bipolar type Assessment and Plan: Pt has decided that he is not in need of medications and he is prepared to discharge. He discussed wanting to sign a conditional voluntary to then discharge. He reports he is not in need of any treatment. Discussed continuing to offer medications and care/treatment and continuing with court process to have pt receive a complete and fair hearing regarding his care. Weekend coverage: 05/02- Pt has been refusing PO medication, appears psychotic, internally preoccupied, agitated. 05/03- Pt continues to refuse PO medication and has not been participating in treatment. He is agitated with interventions by staff and isolative to his room. Assessment and Plan: Court ordered involuntary commitment on 04/30/2021; court will reconvene on to rule on substituted judgment for medications I spent minutes with the patient and/or on the patient floor today, greater than?50% of which was spent counseling/coordinating care. Reason for contiued inpatient stay Substantial Risk for: inability to function, rapid decompensation and med/psych decompensation
[2021-05-03 16:35] VITALS: BP 98/49; PULSE 75; RESP 18; TEMP 36.8; O2SAT 98
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
[2021-05-05] MEDS: LORazepam 2 MG/ML VIAL 1 MG IM (09:50)
[2021-05-05] MEDS: OLANZapine 10 MG VIAL IM (10:41)
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
[2021-05-06] MEDS: LORazepam 1 MG TABLET 2 MG PO (05:49)
--- NOTE | 2021-05-06 05:52 | PC.NURSE ---
0550: Pt accepted ativan 2 mg po at 0550 for agitation.
[2021-05-06 09:50] VITALS: BP 104/59; PULSE 126; RESP 18; O2SAT 96
[2021-05-06 10:05] VITALS: BP 116/61; PULSE 102; RESP 14; O2SAT 96
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
[2021-05-06] MEDS: chlorproMAZINE HCl 25 MG TABLET 50 MG PO ×2 (14:56→22:12)
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
[2021-05-07] MEDS: chlorproMAZINE HCl 25 MG TABLET 50 MG PO ×3 (09:44→21:25)
[2021-05-07 18:00] VITALS: BP 134/78; PULSE 98; RESP 18; TEMP 36.9; O2SAT 97
[2021-05-07] MEDS: LORazepam 2 MG/ML VIAL IM (21:33)
[2021-05-07] MEDS: diphenhydrAMINE HCL 50 MG/ML VIAL IM (21:34)
--- NOTE | 2021-05-07 22:55 | PC.NURSE ---
At approx 2125 Pt agitated, throwing objects, swearing, threatening posturing and refusing his full dose of HS PO court ordered medications. Pt took 25mg of Thorazine and spit out the rest of the medications. Pt offered to talk to staff, utilize PRNs; Pt declined to these interventions. Pt reports that I didn't know that happened when discussed court orders. Pt reports I have the right to refuse . Pt observed to be internally preoccupied as he requested to talk to staff and then went mute and looked like he was staring at someone. Pt received IM medications (SEE MAR). Provider notified (Ketty Mattson), Nursing facility maintenance supervisor aware.
--- NOTE | 2021-05-07 23:14 | HO.PSYCHPN ---
Subjective Subjective Date of Service: 05/07/21 Reason For Visit: Schizophrenia Subjective Notes: Section 8 Healthcare Proxy: No Guardianship: No Medical Problems Affecting Mental Status: No Interim History: Continues with paranoia, intermittent agitation, responding to internal stimuli and delusional content. Decrease in aggression today. Refusal of medications with ability to reason, change his mind and take PO meds. Invega 6 mg to begin 05/08. Tentative plan is PO titration over 5 day intervals with transition to Sustenna if tolerated. Pt met with jingle writer and was calm-wanting to use his phone to order some clothing, music, books. Hoping for discharge soon. He is apologetic for symptoms exhibited yesterday and expresses gratitude as everyone is very kind to me when I am loud, expressive, and angry . I don't like feeling that way. Medication Compliance: Yes Side effects from medications: No Attending Groups: No Review of Systems Acute medical concerns: No Review of Systems Constitutional: Reports no additional constitutional complaints Musculoskeletal: Reports other (denies, s/p punching a wall with abrasions sustatined) Reports behavioral changes and Reports memory loss Psychiatric: Reports anxiety, Reports behavioral changes, Reports depression, Reports difficulty concentrating, Reports auditory hallucinations, Reports hopelessness, Reports irritability, Reports anhedonia, Reports memory loss, Reports mood swings, Reports paranoia, Reports visual hallucinations and Reports hallucinations Mental Status Exam Mental Status Exam Patient Appearance: Disheveled Patient Orientation: Person and Place Level of Consciousness: Alert Patient Behavior: Guarded, Talkative, Hyperactive, Suspicious, Restless, Wandering, Verbal Threats, Swearing, Anxious, Fearful, Resistive to Care, Fatigued, Distractible, Confused, Good Eye Contact, Impulsive and Pacing Mood Description: Suspicious, Withdrawn, Depressed, Fearful, Anxious, Labile, Angry, Sad and Apprehensive Affect Description: Labile and Angry Patient Cognition Impaired: Yes Ability to Follow Directions: Poor Speech Pattern: Perseverating, Spontaneous Speech, Rambling, Cofabulation, Excessive and Pressured Memory Description: Remote Impaired, Episodic Impaired and Recent Impaired Hallucinations: Auditory and Visual Delusions: Being Controlled, Paranoid Ideation and Present Perceptual Disturbances: Depersonalization, Derealization and Hallucinations Thought Process: Racing, Illogical, Distracted and Confusion Thought Content: positive for Flight of Ideas, positive for Racing, positive for [place], positive for Circumstantial, positive for Perseveration, positive for Preoccupation, positive for Loose Associations, positive for Thought Blocking, positive for Tangential and positive for Disorganized Depressive Symptoms: Increased Anxiety, Diff. Making Decisions, Muscle Tension, Hopelessness, Feelings of Guilt, Unhappiness, Increased Fatigue, Loss of Energy and Difficulty Concentrating Abnormal Motor Activity Signs and Symptoms: Agitation, Hyperactivity and Restlessness Judgement: Poor Diagnostics Vital Signs (24Hr): Vital Signs - 24 hr 05/07/21 18:00 Temperature 98.5 F Pulse Rate 98 Respiratory Rate 18 Blood Pressure 134/78 Pulse Oximetry 97 BMI result Body Mass Index 23.6 Labs Results: 04/21/21 07:08 04/21/21 07:08 Imaging Radiology Impressions: ITS Impressions Face X-Ray 04/21/21 15:29 IMPRESSION: No fracture seen. Orbit X-Ray 04/21/21 15:29 IMPRESSION: No fracture seen. Cervical Spine CT 04/24/21 22:24 IMPRESSION: No evidence of acute intracranial abnormalities. No evidence of acute maxillofacial fractures. However, evaluation of the inferior mandibular body is limited due to motion and although no definite fractures or surrounding soft tissue thickening/hematoma are identified, clinical correlation for pain/tenderness in the inferior mandible should be obtained as this is suboptimally assessed in this study. No acute cervical fractures or malalignment. Face CT 04/24/21 22:24 IMPRESSION: No evidence of acute intracranial abnormalities. No evidence of acute maxillofacial fractures. However, evaluation of the inferior mandibular body is limited due to motion and although no definite fractures or surrounding soft tissue thickening/hematoma are identified, clinical correlation for pain/tenderness in the inferior mandible should be obtained as this is suboptimally assessed in this study. No acute cervical fractures or malalignment. Head CT 04/24/21 22:24 IMPRESSION: No evidence of acute intracranial abnormalities. No evidence of acute maxillofacial fractures. However, evaluation of the inferior mandibular body is limited due to motion and although no definite fractures or surrounding soft tissue thickening/hematoma are identified, clinical correlation for pain/tenderness in the inferior mandible should be obtained as this is suboptimally assessed in this study. No acute cervical fractures or malalignment. Medications Medications Current Medications Acetaminophen (Acetaminophen 325 Mg Tablet) 650 mg PO Q6H PRN PRN Reason: Headache/Pain Mild Scale (1-3) Al Hydroxide/Mg Hydroxide (Magnesium Hydrox/Alum Hydrox 30 Ml Oral.Susp) 30 ml PO Q6H PRN PRN Reason: Heartburn/Nausea Benztropine Mesylate (Benztropine Mesylate 1 Mg Tablet) 1 mg PO TID PRN PRN Reason: Extrapyramidal Effects Chlorpromazine HCl (Chlorpromazine Hcl 25 Mg Tablet) 50 mg PO TID [facility] Stop: 05/08/21 08:00 Last Admin: 05/07/21 21:34 Dose: 25 mg Documented by: Chlorpromazine HCl (Chlorpromazine Hcl 50 Mg/2 Ml Ampul) 50 mg IM TID [facility] Stop: 05/08/21 08:00 Last Admin: 05/07/21 21:36 Dose: Not Given Documented by: Chlorpromazine HCl (Chlorpromazine Hcl 100 Mg Tablet) 100 mg PO BID PRN PRN Reason: psychotic agitation Chlorpromazine HCl (Chlorpromazine Hcl 50 Mg/2 Ml Ampul) 100 mg IM BID PRN PRN Reason: psychotic agitation Last Admin: 05/07/21 21:34 Dose: 100 mg Documented by: Diphenhydramine HCl (Diphenhydramine Hcl 25 Mg Tablet) 50 mg PO Q4H PRN PRN Reason: agitation Last Admin: 04/28/21 20:42 Dose: 50 mg Documented by: Hydroxyzine HCl (Hydroxyzine Hcl 25 Mg Tablet) 25 mg PO QID PRN PRN Reason: Anxiety Lorazepam (Lorazepam 1 Mg Tablet) 2 mg PO Q4H PRN PRN Reason: agitation Last Admin: 05/06/21 05:49 Dose: 2 mg Documented by: Magnesium Hydroxide (Milk Of Magnesia 30 Ml Oral.Susp) 30 ml PO DAILY PRN PRN Reason: Constipation Multi-Ingred Cream/Lotion/Oil/Oint (Mineral Oil/Petrolatum,White 106 Gm Tube) 1 appl TOPICAL TID [facility]; Protocol Last Admin: 05/07/21 21:36 Dose: Not Given Documented by: Nicotine (Nicotine 21 Mg Patch.Td24) 21 mg TRANSDERMA DAILY PRN PRN Reason: smoking cessation Nicotine Polacrilex (Nicotine Polacrilex 2 Mg Gum) 4 mg BUCCAL Q2H PRN PRN Reason: Nicotine Cravings Paliperidone (Paliperidone Er 6 Mg Tab.Er.24) 6 mg PO DAILY [facility] Polyethylene Glycol (Polyethylene Glycol 3350 17 Gm Powd.Pack) 17 gm PO DAILY PRN PRN Reason: CONSTIPATION Senna (Sennosides 8.6 Mg Tablet) 17.2 mg PO BEDTIME [facility] Last Admin: 05/07/21 21:36 Dose: Not Given Documented by: Trazodone HCl (Trazodone Hcl 50 Mg Tablet) 50 mg PO BEDTIME PRN PRN Reason: Insomnia Allergies Allergies Allergy/AdvReac Type Severity Reaction Status Date / Time haloperidol [From HALDOL] Allergy Severe DYSTONIA Verified 04/19/21 06:28 ziprasidone [From GEODON] Allergy Severe DYSTONIA Verified 04/19/21 06:28 Assessment & Plan Assessment & Plan (1) Schizoaffective disorder, bipolar type: Status: Acute Code(s): F25.0 - Schizoaffective disorder, bipolar type Assessment and Plan: Continues with psychosis, aggressive agitation, lability of mood. Requiring restraint. Thorazine 50 mg tid with IM back up as needed Thorazine 100 mg bid prn with IM back up as needed. Initially, pt and I discussed an Abilify Maintena trial to address symptoms. From observation of pt's intensity of psychosis, agitation, lability, this does not appear to be the best agent to meet this level of symptom intensity. Will discuss with pt an Invega trial with transition to Sustenna during his hospitalization with initiation. 05/07/21 Invega 6 mg 05/08. Continue Thorazine prn. I spent 35 minutes with the patient and/or on the patient floor today, greater than?50% of which was spent counseling/coordinating care. Patient educated on: medication risk/benefits and therapeutic strategies Informed Consent: does not understand and further education needed Reason for contiued inpatient stay Substantial Risk for: harm to self, harm to others, inability to function and rapid decompensation
--- NOTE | 2021-05-07 23:36 | P.PNPSI_ITS ---
Subjective Subjective Date of Service: 05/07/21 Reason For Visit: Schizophrenia Interim History: Pt refusing PO medication after multiple attempts made by Provider, staff air tactical officer, and pt provided ample time to make the decision. Pt continued to refuse PO medication and reportedly made several calls to [facility]. Pt became verbally threatening, posturing, and was disorganized. He is on a section 7&8 and has thorazine IM as backup if pt refuses PO medication. Pt was not oriented to situation, as he denied that he has a court order for psychiatric treatment. Per plan, pt was administered thorazine IM 100 mg, ativan IM 2 mg, and benadryl IM 50 mg to prevent EPS. I re-evaluated pt an hour s/p chemical restraint. Pt was lying down in bed, somnolent, calm, cooperative. He was offered fluids. Vitals wnl. No complains of pain or stiffness/ rigidity. No EPS noted. Pt denied questions or concerns. Mental Status Exam Mental Status Exam Narrative: Patient Appearance:?Disheveled Patient Orientation:?Person and Place Level of Consciousness:?Alert Patient Behavior:?Guarded, Talkative, Hyperactive, Suspicious, Restless, Wandering, Verbal Threats, Swearing, Anxious, Fearful, Resistive to Care, Fatigued, Distractible, Confused, Good Eye Contact, Impulsive and Pacing Mood Description:?Suspicious, Withdrawn, Depressed, Fearful, Anxious, Labile, Angry, Sad and Apprehensive Affect Description:?Labile and Angry Patient Cognition Impaired:?Yes Ability to Follow Directions:?Poor Speech Pattern:?Perseverating, Spontaneous Speech, Rambling, Cofabulation, Excessive and Pressured Memory Description:?Remote Impaired, Episodic Impaired and Recent Impaired Hallucinations:?Auditory and Visual Delusions:?Being Controlled, Paranoid Ideation and Present Perceptual Disturbances:?Depersonalization, Derealization and Hallucinations Thought Process:?Racing, Illogical, Distracted and Confusion Thought Content:?positive for Flight of Ideas, positive for Racing, positive for [place], positive for Circumstantial, positive for Perseveration, positive for Preoccupation, positive for Loose Associations, positive for Thought Blocking, positive for Tangential and positive for Disorganized Depressive Symptoms:?Increased Anxiety, Diff. Making Decisions, Muscle Tension, Hopelessness, Feelings of Guilt, Unhappiness, Increased Fatigue, Loss of Energy and Difficulty Concentrating Abnormal Motor Activity Signs and Symptoms:?Agitation, Hyperactivity and Restlessness Judgement:?Poor Diagnostics Vital Signs (24Hr): Vital Signs - 24 hr 05/08/21 18:00 Temperature 98.8 F Pulse Rate 104 H Blood Pressure 119/63 BMI result Body Mass Index 23.6 Labs Results: 04/21/21 07:08 04/21/21 07:08 Imaging Radiology Impressions: ITS Impressions Face X-Ray 04/21/21 15:29 IMPRESSION: No fracture seen. Orbit X-Ray 04/21/21 15:29 IMPRESSION: No fracture seen. Cervical Spine CT 04/24/21 22:24 IMPRESSION: No evidence of acute intracranial abnormalities. No evidence of acute maxillofacial fractures. However, evaluation of the inferior mandibular body is limited due to motion and although no definite fractures or surrounding soft tissue thickening/hematoma are identified, clinical correlation for pain/tenderness in the inferior mandible should be obtained as this is suboptimally assessed in this study. No acute cervical fractures or malalignment. Face CT 04/24/21 22:24 IMPRESSION: No evidence of acute intracranial abnormalities. No evidence of acute maxillofacial fractures. However, evaluation of the inferior mandibular body is limited due to motion and although no definite fractures or surrounding soft tissue thickening/hematoma are identified, clinical correlation for pain/tenderness in the inferior mandible should be obtained as this is suboptimally assessed in this study. No acute cervical fractures or malalignment. Head CT 04/24/21 22:24 IMPRESSION: No evidence of acute intracranial abnormalities. No evidence of acute maxillofacial fractures. However, evaluation of the inferior mandibular body is limited due to motion and although no definite fractures or surrounding soft tissue thickening/hematoma are identified, clinical correlation for pain/tenderness in the inferior mandible should be obtained as this is suboptimally assessed in this study. No acute cervical fractures or malalignment. Medications Medications Current Medications Acetaminophen (Acetaminophen 325 Mg Tablet) 650 mg PO Q6H PRN PRN Reason: Headache/Pain Mild Scale (1-3) Al Hydroxide/Mg Hydroxide (Magnesium Hydrox/Alum Hydrox 30 Ml Oral.Susp) 30 ml PO Q6H PRN PRN Reason: Heartburn/Nausea Benztropine Mesylate (Benztropine Mesylate 1 Mg Tablet) 1 mg PO TID PRN PRN Reason: Extrapyramidal Effects Chlorpromazine HCl (Chlorpromazine Hcl 100 Mg Tablet) 100 mg PO BID PRN PRN Reason: psychotic agitation Chlorpromazine HCl (Chlorpromazine Hcl 50 Mg/2 Ml Ampul) 100 mg IM DAILY PRN PRN Reason: if pt refuses PO Invega/court Diphenhydramine HCl (Diphenhydramine Hcl 25 Mg Tablet) 50 mg PO Q4H PRN PRN Reason: agitation Last Admin: 04/28/21 20:42 Dose: 50 mg Documented by: Hydroxyzine HCl (Hydroxyzine Hcl 25 Mg Tablet) 25 mg PO QID PRN PRN Reason: Anxiety Lorazepam (Lorazepam 1 Mg Tablet) 2 mg PO Q4H PRN PRN Reason: agitation Last Admin: 05/06/21 05:49 Dose: 2 mg Documented by: Magnesium Hydroxide (Milk Of Magnesia 30 Ml Oral.Susp) 30 ml PO DAILY PRN PRN Reason: Constipation Multi-Ingred Cream/Lotion/Oil/Oint (Mineral Oil/Petrolatum,White 106 Gm Tube) 1 appl TOPICAL TID [facility]; Protocol Last Admin: 05/08/21 20:04 Dose: Not Given Documented by: Nicotine (Nicotine 21 Mg Patch.Td24) 21 mg TRANSDERMA DAILY PRN PRN Reason: smoking cessation Nicotine Polacrilex (Nicotine Polacrilex 2 Mg Gum) 4 mg BUCCAL Q2H PRN PRN Reason: Nicotine Cravings Paliperidone (Paliperidone Er 6 Mg Tab.Er.24) 6 mg PO DAILY [facility] Last Admin: 05/08/21 09:11 Dose: 6 mg Documented by: Polyethylene Glycol (Polyethylene Glycol 3350 17 Gm Powd.Pack) 17 gm PO DAILY PRN PRN Reason: CONSTIPATION Senna (Sennosides 8.6 Mg Tablet) 17.2 mg PO BEDTIME [facility] Last Admin: 05/08/21 20:04 Dose: Not Given Documented by: Trazodone HCl (Trazodone Hcl 50 Mg Tablet) 50 mg PO BEDTIME PRN PRN Reason: Insomnia Allergies Allergies Allergy/AdvReac Type Severity Reaction Status Date / Time haloperidol [From HALDOL] Allergy Severe DYSTONIA Verified 04/19/21 06:28 ziprasidone [From GEODON] Allergy Severe DYSTONIA Verified 04/19/21 06:28 Assessment & Plan Assessment & Plan (1) Schizoaffective disorder, bipolar type: Status: Acute Code(s): F25.0 - Schizoaffective disorder, bipolar type Assessment and Plan: Continues with psychosis, aggressive agitation, lability of mood. Requiring restraint. Thorazine 50 mg tid with IM back up as needed Thorazine 100 mg bid prn with IM back up as needed. Initially, pt and I discussed an Abilify Maintena trial to address symptoms. From observation of pt's intensity of psychosis, agitation, lability, this does not appear to be the best agent to meet this level of symptom intensity. Will discuss with pt an Invega trial with transition to Sustenna during his hospitalization with initiation. 05/07/21 Invega 6 mg 05/08. Continue Thorazine prn. (pt required IM back up on 05/07/21) 05/08/21 Continue current plan of care. I spent minutes with the patient and/or on the patient floor today, greater than?50% of which was spent counseling/coordinating care. Reason for contiued inpatient stay Substantial Risk for: harm to others, inability to function, rapid decompensation and med/psych decompensation
[2021-05-08] MEDS: Paliperidone ER 6 MG TAB.ER.24 PO (09:11)
--- NOTE | 2021-05-08 10:07 | PC.NURSE ---
PT REQUESTED PORTABLE HAND XRAY OF R HAND. PT THEN REFUSED XRAY. 05/08/2021
--- NOTE | 2021-05-08 13:43 | P.PNPSI_ITS ---
Subjective Subjective Date of Service: 05/08/21 Reason For Visit: Schizophrenia Subjective Notes: Section 8 Healthcare Proxy: No Guardianship: No Medical Problems Affecting Mental Status: No Interim History: Pt with agitation, anger, paranoia this a.m. when medications were presented. Invega 6 mg po initiated with pt with team and security present as pt was expressing agitation stating he was not in need of medications. Confrontive with tw, stating he would be calling 911 to get assistance to take him from the hospital. Discussed with pt agent change to daily, availability of prn medications and review of court order. Pt requested an xray of his right hand after punching the wall this week. When the team came to complete the xray pt changed his mind and refused. Medication Compliance: Intermittent Side effects from medications: No Attending Groups: No Review of Systems Acute medical concerns: No Medical Review of Systems: unchanged Review of Systems Reports behavioral changes, Reports confusion and Reports memory loss Psychiatric: Reports abnormal sleep pattern, Reports anxiety, Reports behavioral changes, Reports confusion, Reports depression, Reports difficulty matt ntrating, Reports auditory hallucinations, Reports hopelessness, Reports irritability, Reports anhedonia, Reports memory loss, Reports mood swings, Reports paranoia and Reports visual hallucinations Mental Status Exam Mental Status Exam Patient Appearance: Disheveled Patient Orientation: Person and Place Level of Consciousness: Alert Patient Behavior: Guarded, Talkative, Hyperactive, Suspicious, Restless, Wandering, Verbal Threats, Swearing, Anxious, Fearful, Resistive to Care, Fatigued, Distractible, Confused, Good Eye Contact, Impulsive and Pacing Mood Description: Suspicious, Withdrawn, Depressed, Fearful, Anxious, Labile, Angry, Sad and Apprehensive Affect Description: Labile and Angry Patient Cognition Impaired: Yes Ability to Follow Directions: Poor Speech Pattern: Perseverating, Spontaneous Speech, Rambling, Cofabulation, Excessive and Pressured Memory Description: Remote Impaired, Episodic Impaired and Recent Impaired Hallucinations: Auditory and Visual Delusions: Being Controlled, Paranoid Ideation and Present Perceptual Disturbances: Depersonalization, Derealization and Hallucinations Thought Process: Racing, Illogical, Distracted and Confusion Thought Content: positive for Flight of Ideas, positive for Racing, positive for [place], positive for Circumstantial, positive for Perseveration, positive for Preoccupation, positive for Loose Associations, positive for Thought Blocking, positive for Tangential and positive for Disorganized Depressive Symptoms: Increased Anxiety, Diff. Making Decisions, Muscle Tension, Hopelessness, Feelings of Guilt, Unhappiness, Increased Fatigue, Loss of Energy and Difficulty Concentrating Abnormal Motor Activity Signs and Symptoms: Agitation, Hyperactivity and Restlessness Judgement: Poor Diagnostics Vital Signs (24Hr): Vital Signs - 24 hr 05/07/21 18:00 Temperature 98.5 F Pulse Rate 98 Respiratory Rate 18 Blood Pressure 134/78 Pulse Oximetry 97 BMI result Body Mass Index 23.6 Labs Results: 04/21/21 07:08 04/21/21 07:08 Imaging Radiology Impressions: ITS Impressions Face X-Ray 04/21/21 15:29 IMPRESSION: No fracture seen. Orbit X-Ray 04/21/21 15:29 IMPRESSION: No fracture seen. Cervical Spine CT 04/24/21 22:24 IMPRESSION: No evidence of acute intracranial abnormalities. No evidence of acute maxillofacial fractures. However, evaluation of the inferior mandibular body is limited due to motion and although no definite fractures or surrounding soft tissue thickening/hematoma are identified, clinical correlation for pain/tenderness in the inferior mandible should be obtained as this is suboptimally assessed in this study. No acute cervical fractures or malalignment. Face CT 04/24/21 22:24 IMPRESSION: No evidence of acute intracranial abnormalities. No evidence of acute maxillofacial fractures. However, evaluation of the inferior mandibular body is limited due to motion and although no definite fractures or surrounding soft tissue thickening/hematoma are identified, clinical correlation for pain/tenderness in the inferior mandible should be obtained as this is suboptimally assessed in this study. No acute cervical fractures or malalignment. Head CT 04/24/21 22:24 IMPRESSION: No evidence of acute intracranial abnormalities. No evidence of acute maxillofacial fractures. However, evaluation of the inferior mandibular body is limited due to motion and although no definite fractures or surrounding soft tissue thickening/hematoma are identified, clinical correlation for pain/tenderness in the inferior mandible should be obtained as this is suboptimally assessed in this study. No acute cervical fractures or malalignment. Medications Medications Current Medications Acetaminophen (Acetaminophen 325 Mg Tablet) 650 mg PO Q6H PRN PRN Reason: Headache/Pain Mild Scale (1-3) Al Hydroxide/Mg Hydroxide (Magnesium Hydrox/Alum Hydrox 30 Ml Oral.Susp) 30 ml PO Q6H PRN PRN Reason: Heartburn/Nausea Benztropine Mesylate (Benztropine Mesylate 1 Mg Tablet) 1 mg PO TID PRN PRN Reason: Extrapyramidal Effects Chlorpromazine HCl (Chlorpromazine Hcl 100 Mg Tablet) 100 mg PO BID PRN PRN Reason: psychotic agitation Chlorpromazine HCl (Chlorpromazine Hcl 50 Mg/2 Ml Ampul) 100 mg IM DAILY PRN PRN Reason: if pt refuses PO Invega/court Diphenhydramine HCl (Diphenhydramine Hcl 25 Mg Tablet) 50 mg PO Q4H PRN PRN Reason: agitation Last Admin: 04/28/21 20:42 Dose: 50 mg Documented by: Hydroxyzine HCl (Hydroxyzine Hcl 25 Mg Tablet) 25 mg PO QID PRN PRN Reason: Anxiety Lorazepam (Lorazepam 1 Mg Tablet) 2 mg PO Q4H PRN PRN Reason: agitation Last Admin: 05/06/21 05:49 Dose: 2 mg Documented by: Magnesium Hydroxide (Milk Of Magnesia 30 Ml Oral.Susp) 30 ml PO DAILY PRN PRN Reason: Constipation Multi-Ingred Cream/Lotion/Oil/Oint (Mineral Oil/Petrolatum,White 106 Gm Tube) 1 appl TOPICAL TID MARGAUX; Protocol Last Admin: 05/08/21 13:12 Dose: Not Given Documented by: Nicotine (Nicotine 21 Mg Patch.Td24) 21 mg TRANSDERMA DAILY PRN PRN Reason: smoking cessation Nicotine Polacrilex (Nicotine Polacrilex 2 Mg Gum) 4 mg BUCCAL Q2H PRN PRN Reason: Nicotine Cravings Paliperidone (Paliperidone Er 6 Mg Tab.Er.24) 6 mg PO DAILY [facility] Last Admin: 05/08/21 09:11 Dose: 6 mg Documented by: Polyethylene Glycol (Polyethylene Glycol 3350 17 Gm Powd.Pack) 17 gm PO DAILY PRN PRN Reason: CONSTIPATION Senna (Sennosides 8.6 Mg Tablet) 17.2 mg PO BEDTIME MARGAUX Last Admin: 05/07/21 21:36 Dose: Not Given Documented by: Trazodone HCl (Trazodone Hcl 50 Mg Tablet) 50 mg PO BEDTIME PRN PRN Reason: Insomnia Allergies Allergies Allergy/AdvReac Type Severity Reaction Status Date / Time haloperidol [From HALDOL] Allergy Severe DYSTONIA Verified 04/19/21 06:28 ziprasidone [From GEODON] Allergy Severe DYSTONIA Verified 04/19/21 06:28 Assessment & Plan Assessment & Plan (1) Schizoaffective disorder, bipolar type: Status: Acute Code(s): F25.0 - Schizoaffective disorder, bipolar type Assessment and Plan: Continues with psychosis, aggressive agitation, lability of mood. Requiring restraint. Thorazine 50 mg tid with IM back up as needed Thorazine 100 mg bid prn with IM back up as needed. Initially, pt and I discussed an Abilify Maintena trial to address symptoms. From observation of pt's intensity of psychosis, agitation, lability, this does not appear to be the best agent to meet this level of symptom intensity. Will discuss with pt an Invega trial with transition to Sustenna during his hospitalization with initiation. 05/07/21 Invega 6 mg 05/08. Continue Thorazine prn. 05/08/21 Continue current plan of care. I spent 45 minutes with the patient and/or on the patient floor today, greater than?50% of which was spent counseling/coordinating care. Patient educated on: medication risk/benefits Informed Consent: does not understand Reason for contiued inpatient stay Substantial Risk for: harm to self, harm to others, inability to function and rapid decompensation
[2021-05-08 18:00] VITALS: BP 119/63; PULSE 104; TEMP 37.1
[2021-05-09 06:00] VITALS: BP 114/67; PULSE 100; RESP 16; TEMP 36.8; O2SAT 99
--- NOTE | 2021-05-09 06:13 | HO.PSYCHPN ---
Subjective Subjective Date of Service: 05/09/21 Reason For Visit: Schizophrenia Interim History: Pt refusing PO medication after multiple attempts made by Provider, medical staff services coordinator, and pt provided ample time to make the decision. Pt continued to refuse PO medication and reportedly made several calls to Denise LUNDBERG. Pt became verbally threatening, posturing, and was disorganized. He is on a section 7&8 and has thorazine IM as backup if pt refuses PO medication. Pt was not oriented to situation, as he denied that he has a court order for psychiatric treatment. Per plan, pt was administered thorazine IM 100 mg, ativan IM 2 mg, and benadryl IM 50 mg to prevent EPS. I re-evaluated pt an hour s/p chemical restraint. Pt was lying down in bed, somnolent, calm, cooperative. He was offered fluids. Vitals wnl. No complains of pain or stiffness/ rigidity. No EPS noted. Pt denied questions or concerns. 05/09/21: Pleasant. Cooperative . Hx recent restraints. Sect 8. Took Invega today Review of Systems Constitutional: Reports no additional constitutional complaints Musculoskeletal: Reports other (denies, s/p punching a wall with abrasions sustatined) Reports behavioral changes, Reports confusion and Reports memory loss Psychiatric: Reports abnormal sleep pattern, Reports anxiety, Reports behavioral changes, Reports confusion, Reports depression, Reports difficulty concentrating, Reports auditory hallucinations, Reports hopelessness, Reports irritability, Reports anhedonia, Reports memory loss, Reports mood swings, Reports paranoia, Reports visual hallucinations, Reports hallucinations, Reports homicidal ideation, Reports suicidal ideation (denies) and Reports other (aggression, agitation, violence precipitating restraint) Mental Status Exam Mental Status Exam Narrative: Patient Appearance:?Disheveled Patient Orientation:?Person and Place Level of Consciousness:?Alert Patient Behavior:?Guarded, Talkative, Hyperactive, Suspicious, Restless, Wandering, Verbal Threats, Swearing, Anxious, Fearful, Resistive to Care, Fatigued, Distractible, Confused, Good Eye Contact, Impulsive and Pacing Mood Description:?Suspicious, Withdrawn, Depressed, Fearful, Anxious, Labile, Angry, Sad and Apprehensive Affect Description:?Labile and Angry Patient Cognition Impaired:?Yes Ability to Follow Directions:?Poor Speech Pattern:?Perseverating, Spontaneous Speech, Rambling, Cofabulation, Excessive and Pressured Memory Description:?Remote Impaired, Episodic Impaired and Recent Impaired Hallucinations:?Auditory and Visual Delusions:?Being Controlled, Paranoid Ideation and Present Perceptual Disturbances:?Depersonalization, Derealization and Hallucinations Thought Process:?Racing, Illogical, Distracted and Confusion Thought Content:?positive for Flight of Ideas, positive for Racing, positive for [place], positive for Circumstantial, positive for Perseveration, positive for Preoccupation, positive for Loose Associations, positive for Thought Blocking, positive for Tangential and positive for Disorganized Depressive Symptoms:?Increased Anxiety, Diff. Making Decisions, Muscle Tension, Hopelessness, Feelings of Guilt, Unhappiness, Increased Fatigue, Loss of Energy and Difficulty Concentrating Abnormal Motor Activity Signs and Symptoms:?Agitation, Hyperactivity and Restlessness Judgement:?Poor Patient Appearance: Disheveled Patient Orientation: Person and Place Level of Consciousness: Alert Patient Behavior: Guarded, Talkative, Hyperactive, Suspicious, Restless, Wandering, Verbal Threats, Swearing, Anxious, Fearful, Resistive to Care, Fatigued, Distractible, Confused, Good Eye Contact, Impulsive and Pacing Mood Description: Suspicious, Withdrawn, Depressed, Fearful, Anxious, Labile, Angry, Sad and Apprehensive Affect Description: Labile and Angry Patient Cognition Impaired: Yes Ability to Follow Directions: Poor Speech Pattern: Perseverating, Spontaneous Speech, Rambling, Cofabulation, Excessive and Pressured Memory Description: Remote Impaired, Episodic Impaired and Recent Impaired Diagnostics Vital Signs (24Hr): Vital Signs - 24 hr 05/08/21 18:00 Temperature 98.8 F Pulse Rate 104 H Blood Pressure 119/63 BMI result Body Mass Index 23.6 Labs Results: 04/21/21 07:08 04/21/21 07:08 Imaging Radiology Impressions: ITS Impressions Face X-Ray 04/21/21 15:29 IMPRESSION: No fracture seen. Orbit X-Ray 04/21/21 15:29 IMPRESSION: No fracture seen. Cervical Spine CT 04/24/21 22:24 IMPRESSION: No evidence of acute intracranial abnormalities. No evidence of acute maxillofacial fractures. However, evaluation of the inferior mandibular body is limited due to motion and although no definite fractures or surrounding soft tissue thickening/hematoma are identified, clinical correlation for pain/tenderness in the inferior mandible should be obtained as this is suboptimally assessed in this study. No acute cervical fractures or malalignment. Face CT 04/24/21 22:24 IMPRESSION: No evidence of acute intracranial abnormalities. No evidence of acute maxillofacial fractures. However, evaluation of the inferior mandibular body is limited due to motion and although no definite fractures or surrounding soft tissue thickening/hematoma are identified, clinical correlation for pain/tenderness in the inferior mandible should be obtained as this is suboptimally assessed in this study. No acute cervical fractures or malalignment. Head CT 04/24/21 22:24 IMPRESSION: No evidence of acute intracranial abnormalities. No evidence of acute maxillofacial fractures. However, evaluation of the inferior mandibular body is limited due to motion and although no definite fractures or surrounding soft tissue thickening/hematoma are identified, clinical correlation for pain/tenderness in the inferior mandible should be obtained as this is suboptimally assessed in this study. No acute cervical fractures or malalignment. Medications Medications Current Medications Acetaminophen (Acetaminophen 325 Mg Tablet) 650 mg PO Q6H PRN PRN Reason: Headache/Pain Mild Scale (1-3) Al Hydroxide/Mg Hydroxide (Magnesium Hydrox/Alum Hydrox 30 Ml Oral.Susp) 30 ml PO Q6H PRN PRN Reason: Heartburn/Nausea Benztropine Mesylate (Benztropine Mesylate 1 Mg Tablet) 1 mg PO TID PRN PRN Reason: Extrapyramidal Effects Chlorpromazine HCl (Chlorpromazine Hcl 100 Mg Tablet) 100 mg PO BID PRN PRN Reason: psychotic agitation Chlorpromazine HCl (Chlorpromazine Hcl 50 Mg/2 Ml Ampul) 100 mg IM DAILY PRN PRN Reason: if pt refuses PO Invega/court Diphenhydramine HCl (Diphenhydramine Hcl 25 Mg Tablet) 50 mg PO Q4H PRN PRN Reason: agitation Last Admin: 04/28/21 20:42 Dose: 50 mg Documented by: Hydroxyzine HCl (Hydroxyzine Hcl 25 Mg Tablet) 25 mg PO QID PRN PRN Reason: Anxiety Lorazepam (Lorazepam 1 Mg Tablet) 2 mg PO Q4H PRN PRN Reason: agitation Last Admin: 05/06/21 05:49 Dose: 2 mg Documented by: Magnesium Hydroxide (Milk Of Magnesia 30 Ml Oral.Susp) 30 ml PO DAILY PRN PRN Reason: Constipation Multi-Ingred Cream/Lotion/Oil/Oint (Mineral Oil/Petrolatum,White 106 Gm Tube) 1 appl TOPICAL TID MARGAUX; Protocol Last Admin: 05/08/21 20:04 Dose: Not Given Documented by: Nicotine (Nicotine 21 Mg Patch.Td24) 21 mg TRANSDERMA DAILY PRN PRN Reason: smoking cessation Nicotine Polacrilex (Nicotine Polacrilex 2 Mg Gum) 4 mg BUCCAL Q2H PRN PRN Reason: Nicotine Cravings Paliperidone (Paliperidone Er 6 Mg Tab.Er.24) 6 mg PO DAILY MARGAUX Last Admin: 05/08/21 09:11 Dose: 6 mg Documented by: Polyethylene Glycol (Polyethylene Glycol 3350 17 Gm Powd.Pack) 17 gm PO DAILY PRN PRN Reason: CONSTIPATION Senna (Sennosides 8.6 Mg Tablet) 17.2 mg PO BEDTIME MARGAUX Last Admin: 05/08/21 20:04 Dose: Not Given Documented by: Trazodone HCl (Trazodone Hcl 50 Mg Tablet) 50 mg PO BEDTIME PRN PRN Reason: Insomnia Allergies Allergies Allergy/AdvReac Type Severity Reaction Status Date / Time haloperidol [From HALDOL] Allergy Severe DYSTONIA Verified 04/19/21 06:28 ziprasidone [From GEODON] Allergy Severe DYSTONIA Verified 04/19/21 06:28 Assessment & Plan Assessment & Plan (1) Schizoaffective disorder, bipolar type: Status: Acute Code(s): F25.0 - Schizoaffective disorder, bipolar type Assessment and Plan: Continues with psychosis, aggressive agitation, lability of mood. Requiring restraint. Thorazine 50 mg tid with IM back up as needed Thorazine 100 mg bid prn with IM back up as needed. Initially, pt and I discussed an Abilify Maintena trial to address symptoms. From observation of pt's intensity of psychosis, agitation, lability, this does not appear to be the best agent to meet this level of symptom intensity. Will discuss with pt an Invega trial with transition to Sustenna during his hospitalization with initiation. 05/07/21 Invega 6 mg 05/08. Continue Thorazine prn. (pt required IM back up on 05/07/21) 05/08/21 Continue current plan of care. 05/09/21: Ct w plan per [facility] order I spent minutes with the patient and/or on the patient floor today, greater than?50% of which was spent counseling/coordinating care. Reason for contiued inpatient stay Substantial Risk for: rapid decompensation
[2021-05-09] MEDS: Paliperidone ER 6 MG TAB.ER.24 PO (07:51)
[2021-05-09 18:00] VITALS: BP 128/71; PULSE 88; TEMP 37
[2021-05-09] MEDS: Mineral Oil/Petrolatum,White 106 GM Tube 1 APPL TOPICAL (18:44)
[2021-05-10 06:00] VITALS: BP 117/68; PULSE 85; RESP 18; TEMP 36.1; O2SAT 97
[2021-05-10] MEDS: Paliperidone ER 6 MG TAB.ER.24 PO (08:10)
--- NOTE | 2021-05-10 15:12 | HO.PSYCHPN ---
Subjective Subjective Date of Service: 05/10/21 Reason For Visit: Schizophrenia Interim History: Pt refusing PO medication after multiple attempts made by Provider, staff training and development manager, and pt provided ample time to make the decision. Pt continued to refuse PO medication and reportedly made several calls to Denise LUNDBERG. Pt became verbally threatening, posturing, and was disorganized. He is on a section 7&8 and has thorazine IM as backup if pt refuses PO medication. Pt was not oriented to situation, as he denied that he has a court order for psychiatric treatment. Per plan, pt was administered thorazine IM 100 mg, ativan IM 2 mg, and benadryl IM 50 mg to prevent EPS. I re-evaluated pt an hour s/p chemical restraint. Pt was lying down in bed, somnolent, calm, cooperative. He was offered fluids. Vitals wnl. No complains of pain or stiffness/ rigidity. No EPS noted. Pt denied questions or concerns. 05/09/21: Pleasant. Cooperative . Hx recent restraints. Sect 8. Took Invega today 05/10/21: Med compliant. Pleasant initially but later became somewhat hostile, insisting that TW DC him today....I am ready to leave Review of Systems Constitutional: Reports no additional constitutional complaints Musculoskeletal: Reports other (denies, s/p punching a wall with abrasions sustatined) Reports behavioral changes, Reports confusion and Reports memory loss Psychiatric: Reports abnormal sleep pattern, Reports anxiety, Reports behavioral changes, Reports confusion, Reports depression, Reports difficulty concentrating, Reports auditory hallucinations, Reports hopelessness, Reports irritability, Reports anhedonia, Reports memory loss, Reports mood swings, Reports paranoia, Reports visual hallucinations, Reports hallucinations, Reports homicidal ideation, Reports suicidal ideation (denies) and Reports other (aggression, agitation, violence precipitating restraint) Mental Status Exam Mental Status Exam Narrative: Patient Appearance:?Disheveled Patient Orientation:?Person and Place Level of Consciousness:?Alert Patient Behavior:?Guarded, Talkative, Hyperactive, Suspicious, Restless, Wandering, Verbal Threats, Swearing, Anxious, Fearful, Resistive to Care, Fatigued, Distractible, Confused, Good Eye Contact, Impulsive and Pacing Mood Description:?Suspicious, Withdrawn, Depressed, Fearful, Anxious, Labile, Angry, Sad and Apprehensive Affect Description:?Labile and Angry Patient Cognition Impaired:?Yes Ability to Follow Directions:?Poor Speech Pattern:?Perseverating, Spontaneous Speech, Rambling, Cofabulation, Excessive and Pressured Memory Description:?Remote Impaired, Episodic Impaired and Recent Impaired Hallucinations:?Auditory and Visual Delusions:?Being Controlled, Paranoid Ideation and Present Perceptual Disturbances:?Depersonalization, Derealization and Hallucinations Thought Process:?Racing, Illogical, Distracted and Confusion Thought Content:?positive for Flight of Ideas, positive for Racing, positive for [place], positive for Circumstantial, positive for Perseveration, positive for Preoccupation, positive for Loose Associations, positive for Thought Blocking, positive for Tangential and positive for Disorganized Depressive Symptoms:?Increased Anxiety, Diff. Making Decisions, Muscle Tension, Hopelessness, Feelings of Guilt, Unhappiness, Increased Fatigue, Loss of Energy and Difficulty Concentrating Abnormal Motor Activity Signs and Symptoms:?Agitation, Hyperactivity and Restlessness Judgement:?Poor Patient Appearance: Disheveled Patient Orientation: Person and Place Level of Consciousness: Alert Patient Behavior: Guarded, Talkative, Hyperactive, Suspicious, Restless, Wandering, Verbal Threats, Swearing, Anxious, Fearful, Resistive to Care, Fatigued, Distractible, Confused, Good Eye Contact, Impulsive and Pacing Mood Description: Suspicious, Withdrawn, Depressed, Fearful, Anxious, Labile, Angry, Sad and Apprehensive Affect Description: Labile and Angry Patient Cognition Impaired: Yes Ability to Follow Directions: Poor Speech Pattern: Perseverating, Spontaneous Speech, Rambling, Cofabulation, Excessive and Pressured Memory Description: Remote Impaired, Episodic Impaired and Recent Impaired Diagnostics Vital Signs (24Hr): Vital Signs - 24 hr 05/09/21 18:00 05/10/21 06:00 Temperature 98.6 F 97.0 F Pulse Rate 88 85 Respiratory Rate 18 Blood Pressure 128/71 117/68 Pulse Oximetry 97 BMI result Body Mass Index 23.6 Labs Results: 04/21/21 07:08 04/21/21 07:08 Imaging Radiology Impressions: ITS Impressions Face X-Ray 04/21/21 15:29 IMPRESSION: No fracture seen. Orbit X-Ray 04/21/21 15:29 IMPRESSION: No fracture seen. Cervical Spine CT 04/24/21 22:24 IMPRESSION: No evidence of acute intracranial abnormalities. No evidence of acute maxillofacial fractures. However, evaluation of the inferior mandibular body is limited due to motion and although no definite fractures or surrounding soft tissue thickening/hematoma are identified, clinical correlation for pain/tenderness in the inferior mandible should be obtained as this is suboptimally assessed in this study. No acute cervical fractures or malalignment. Face CT 04/24/21 22:24 IMPRESSION: No evidence of acute intracranial abnormalities. No evidence of acute maxillofacial fractures. However, evaluation of the inferior mandibular body is limited due to motion and although no definite fractures or surrounding soft tissue thickening/hematoma are identified, clinical correlation for pain/tenderness in the inferior mandible should be obtained as this is suboptimally assessed in this study. No acute cervical fractures or malalignment. Head CT 04/24/21 22:24 IMPRESSION: No evidence of acute intracranial abnormalities. No evidence of acute maxillofacial fractures. However, evaluation of the inferior mandibular body is limited due to motion and although no definite fractures or surrounding soft tissue thickening/hematoma are identified, clinical correlation for pain/tenderness in the inferior mandible should be obtained as this is suboptimally assessed in this study. No acute cervical fractures or malalignment. Medications Medications Current Medications Acetaminophen (Acetaminophen 325 Mg Tablet) 650 mg PO Q6H PRN PRN Reason: Headache/Pain Mild Scale (1-3) Al Hydroxide/Mg Hydroxide (Magnesium Hydrox/Alum Hydrox 30 Ml Oral.Susp) 30 ml PO Q6H PRN PRN Reason: Heartburn/Nausea Benztropine Mesylate (Benztropine Mesylate 1 Mg Tablet) 1 mg PO TID PRN PRN Reason: Extrapyramidal Effects Chlorpromazine HCl (Chlorpromazine Hcl 100 Mg Tablet) 100 mg PO BID PRN PRN Reason: psychotic agitation Chlorpromazine HCl (Chlorpromazine Hcl 50 Mg/2 Ml Ampul) 100 mg IM DAILY PRN PRN Reason: if pt refuses PO Invega/court Diphenhydramine HCl (Diphenhydramine Hcl 25 Mg Tablet) 50 mg PO Q4H PRN PRN Reason: agitation Last Admin: 04/28/21 20:42 Dose: 50 mg Documented by: Hydroxyzine HCl (Hydroxyzine Hcl 25 Mg Tablet) 25 mg PO QID PRN PRN Reason: Anxiety Lorazepam (Lorazepam 1 Mg Tablet) 2 mg PO Q4H PRN PRN Reason: agitation Last Admin: 05/06/21 05:49 Dose: 2 mg Documented by: Magnesium Hydroxide (Milk Of Magnesia 30 Ml Oral.Susp) 30 ml PO DAILY PRN PRN Reason: Constipation Multi-Ingred Cream/Lotion/Oil/Oint (Mineral Oil/Petrolatum,White 106 Gm Tube) 1 appl TOPICAL TID MARGAUX; Protocol Last Admin: 05/10/21 08:13 Dose: Not Given Documented by: Nicotine (Nicotine 21 Mg Patch.Td24) 21 mg TRANSDERMA DAILY PRN PRN Reason: smoking cessation Nicotine Polacrilex (Nicotine Polacrilex 2 Mg Gum) 4 mg BUCCAL Q2H PRN PRN Reason: Nicotine Cravings Paliperidone (Paliperidone Er 6 Mg Tab.Er.24) 6 mg PO DAILY MARGAUX Last Admin: 05/10/21 08:10 Dose: 6 mg Documented by: Polyethylene Glycol (Polyethylene Glycol 3350 17 Gm Powd.Pack) 17 gm PO DAILY PRN PRN Reason: CONSTIPATION Senna (Sennosides 8.6 Mg Tablet) 17.2 mg PO BEDTIME MARGAUX Last Admin: 05/09/21 19:51 Dose: Not Given Documented by: Trazodone HCl (Trazodone Hcl 50 Mg Tablet) 50 mg PO BEDTIME PRN PRN Reason: Insomnia Allergies Allergies Allergy/AdvReac Type Severity Reaction Status Date / Time haloperidol [From HALDOL] Allergy Severe DYSTONIA Verified 04/19/21 06:28 ziprasidone [From GEODON] Allergy Severe DYSTONIA Verified 04/19/21 06:28 Assessment & Plan Assessment & Plan (1) Schizoaffective disorder, bipolar type: Status: Acute Code(s): F25.0 - Schizoaffective disorder, bipolar type Assessment and Plan: Continues with psychosis, aggressive agitation, lability of mood. Requiring restraint. Thorazine 50 mg tid with IM back up as needed Thorazine 100 mg bid prn with IM back up as needed. Initially, pt and I discussed an Abilify Maintena trial to address symptoms. From observation of pt's intensity of psychosis, agitation, lability, this does not appear to be the best agent to meet this level of symptom intensity. Will discuss with pt an Invega trial with transition to Sustenna during his hospitalization with initiation. 05/07/21 Invega 6 mg 05/08. Continue Thorazine prn. (pt required IM back up on 05/07/21) 05/08/21 Continue current plan of care. 05/09/21: Ct w plan per [facility] order 05/10/21: Ct Rx plan I spent minutes with the patient and/or on the patient floor today, greater than?50% of which was spent counseling/coordinating care. Reason for contiued inpatient stay Substantial Risk for: rapid decompensation
[2021-05-10 17:49] VITALS: BP 132/68; PULSE 91; RESP 18; TEMP 37.1; O2SAT 98
[2021-05-11] MEDS: Paliperidone ER 6 MG TAB.ER.24 PO (08:48)
--- NOTE | 2021-05-11 13:50 | HO.PSYCHPN ---
Subjective Subjective Date of Service: 05/11/21 Reason For Visit: Schizophrenia Subjective Notes: Section 8 Healthcare Proxy: No Guardianship: No Medical Problems Affecting Mental Status: No Interim History: Hi. I wanted to say thank you. My doctor, Rula and my girlfriend, also Rula will be coming to pick me up to take me to a [facility] soon, but I wanted to thank you for working with me until they came. Everyone here has been very good to me and I have had some bad moments. Thank you. Team reports improvement. Pt able to attend group on 05/09. Continues to respond to internal stimuli, experience delusions, perceptual alterations with a decrease in aggression. Responsive to Invega PO without adverse effect. Due for titration 05/13 working toward Sustenna injection. Medication Compliance: Intermittent Side effects from medications: No Attending Groups: Intermittent Review of Systems Acute medical concerns: No Medical Review of Systems: unchanged Review of Systems Reports behavioral changes, Reports confusion and Reports memory loss Psychiatric: Reports behavioral changes, Reports confusion, Reports difficulty concentrating, Reports auditory hallucinations, Reports memory loss, Reports mood swings, Reports paranoia, Reports visual hallucinations and Reports hallucinations Mental Status Exam Mental Status Exam Patient Appearance: Disheveled Patient Orientation: Person and Place Level of Consciousness: Alert Patient Behavior: Talkative and Good Eye Contact Mood Description: Labile Affect Description: Labile Patient Cognition Impaired: Yes Ability to Follow Directions: Fair Speech Pattern: Spontaneous Speech Memory Description: Remote Impaired and Episodic Impaired Hallucinations: Auditory and Visual Delusions: Being Controlled and Present Thought Process: Illogical and Distracted Thought Content: positive for Flight of Ideas, positive for Circumstantial, positive for Perseveration, positive for Preoccupation, positive for Thought Blocking, positive for Tangential, positive for Suicidal Ideation (denies) and positive for Homicidal Ideation (denies) Depressive Symptoms: Diff. Making Decisions and Difficulty Concentrating Abnormal Motor Activity Signs and Symptoms: Restlessness Judgement: Poor Diagnostics Vital Signs (24Hr): Vital Signs - 24 hr 05/10/21 17:49 Temperature 98.7 F Pulse Rate 91 Respiratory Rate 18 Blood Pressure 132/68 Pulse Oximetry 98 BMI result Body Mass Index 23.6 Labs Results: 04/21/21 07:08 04/21/21 07:08 Imaging Radiology Impressions: ITS Impressions Face X-Ray 04/21/21 15:29 IMPRESSION: No fracture seen. Orbit X-Ray 04/21/21 15:29 IMPRESSION: No fracture seen. Cervical Spine CT 04/24/21 22:24 IMPRESSION: No evidence of acute intracranial abnormalities. No evidence of acute maxillofacial fractures. However, evaluation of the inferior mandibular body is limited due to motion and although no definite fractures or surrounding soft tissue thickening/hematoma are identified, clinical correlation for pain/tenderness in the inferior mandible should be obtained as this is suboptimally assessed in this study. No acute cervical fractures or malalignment. Face CT 04/24/21 22:24 IMPRESSION: No evidence of acute intracranial abnormalities. No evidence of acute maxillofacial fractures. However, evaluation of the inferior mandibular body is limited due to motion and although no definite fractures or surrounding soft tissue thickening/hematoma are identified, clinical correlation for pain/tenderness in the inferior mandible should be obtained as this is suboptimally assessed in this study. No acute cervical fractures or malalignment. Head CT 04/24/21 22:24 IMPRESSION: No evidence of acute intracranial abnormalities. No evidence of acute maxillofacial fractures. However, evaluation of the inferior mandibular body is limited due to motion and although no definite fractures or surrounding soft tissue thickening/hematoma are identified, clinical correlation for pain/tenderness in the inferior mandible should be obtained as this is suboptimally assessed in this study. No acute cervical fractures or malalignment. Medications Medications Current Medications Acetaminophen (Acetaminophen 325 Mg Tablet) 650 mg PO Q6H PRN PRN Reason: Headache/Pain Mild Scale (1-3) Al Hydroxide/Mg Hydroxide (Magnesium Hydrox/Alum Hydrox 30 Ml Oral.Susp) 30 ml PO Q6H PRN PRN Reason: Heartburn/Nausea Benztropine Mesylate (Benztropine Mesylate 1 Mg Tablet) 1 mg PO TID PRN PRN Reason: Extrapyramidal Effects Chlorpromazine HCl (Chlorpromazine Hcl 100 Mg Tablet) 100 mg PO BID PRN PRN Reason: psychotic agitation Chlorpromazine HCl (Chlorpromazine Hcl 50 Mg/2 Ml Ampul) 100 mg IM DAILY PRN PRN Reason: if pt refuses PO Invega/court Diphenhydramine HCl (Diphenhydramine Hcl 25 Mg Tablet) 50 mg PO Q4H PRN PRN Reason: agitation Last Admin: 04/28/21 20:42 Dose: 50 mg Documented by: Hydroxyzine HCl (Hydroxyzine Hcl 25 Mg Tablet) 25 mg PO QID PRN PRN Reason: Anxiety Lorazepam (Lorazepam 1 Mg Tablet) 2 mg PO Q4H PRN PRN Reason: agitation Last Admin: 05/06/21 05:49 Dose: 2 mg Documented by: Magnesium Hydroxide (Milk Of Magnesia 30 Ml Oral.Susp) 30 ml PO DAILY PRN PRN Reason: Constipation Multi-Ingred Cream/Lotion/Oil/Oint (Mineral Oil/Petrolatum,White 106 Gm Tube) 1 appl TOPICAL TID MARGAUX; Protocol Last Admin: 05/11/21 11:45 Dose: Not Given Documented by: Nicotine (Nicotine 21 Mg Patch.Td24) 21 mg TRANSDERMA DAILY PRN PRN Reason: smoking cessation Nicotine Polacrilex (Nicotine Polacrilex 2 Mg Gum) 4 mg BUCCAL Q2H PRN PRN Reason: Nicotine Cravings Paliperidone (Paliperidone Er 6 Mg Tab.Er.24) 6 mg PO DAILY MARGAUX Last Admin: 05/11/21 08:48 Dose: 6 mg Documented by: Polyethylene Glycol (Polyethylene Glycol 3350 17 Gm Powd.Pack) 17 gm PO DAILY PRN PRN Reason: CONSTIPATION Senna (Sennosides 8.6 Mg Tablet) 17.2 mg PO BEDTIME MARGAUX Last Admin: 05/10/21 19:08 Dose: Not Given Documented by: Trazodone HCl (Trazodone Hcl 50 Mg Tablet) 50 mg PO BEDTIME PRN PRN Reason: Insomnia Allergies Allergies Allergy/AdvReac Type Severity Reaction Status Date / Time haloperidol [From HALDOL] Allergy Severe DYSTONIA Verified 04/19/21 06:28 ziprasidone [From GEODON] Allergy Severe DYSTONIA Verified 04/19/21 06:28 Assessment & Plan Assessment & Plan (1) Schizoaffective disorder, bipolar type: Status: Acute Code(s): F25.0 - Schizoaffective disorder, bipolar type Assessment and Plan: Continues with psychosis, aggressive agitation, lability of mood. Requiring restraint. Thorazine 50 mg tid with IM back up as needed Thorazine 100 mg bid prn with IM back up as needed. Initially, pt and I discussed an Abilify Maintena trial to address symptoms. From observation of pt's intensity of psychosis, agitation, lability, this does not appear to be the best agent to meet this level of symptom intensity. Will discuss with pt an Invega trial with transition to Sustenna during his hospitalization with initiation. 05/07/21 Invega 6 mg 05/08. Continue Thorazine prn. (pt required IM back up on 05/07/21) 05/08/21 Continue current plan of care. 05/09/21: Ct w plan per [facility] order 05/10/21: Ct Rx plan 05/11/21: Continue Invega titration. I spent 20 minutes with the patient and/or on the patient floor today, greater than?50% of which was spent counseling/coordinating care. Patient educated on: therapeutic strategies Informed Consent: further education needed Reason for contiued inpatient stay Substantial Risk for: harm to self, harm to others, inability to function and rapid decompensation
[2021-05-11 18:00] VITALS: RESP 16
--- NOTE | 2021-05-12 01:33 | PC.NURSE ---
0110: PT TRYING TO ENTER NURSES STATION BY ATTEMPTING TO UNLATCH GATE STATING HE NEEDED TO USE THE PHONE FOR AN EMERGENCY CALL TO HIS . STAFF EXPLAINED THAT HE COULD NOT CALL OUT AT THIS LATE HOUR.VERBALLY AGGRESSIVE WITH STAFF HE WAS NOT GETTING THE RESPONSE HE WANTED. SECURITY CALLED FOR SAFETY.REFUSED TO BE REDIRECTED AND CONTINUED TO YELL AND SWEAR AT STAFF.PT INITIALLY STATED THAT HE HAD TO CALL HIS AT [facility] BECAUSE SHE WAS GOING TO .AFTER TALKING TO SECURITY PT STATED THAT [place] [facility] [place] TOLD PT THAT THEY WOULD TRY AND LOCATE HIS AND TELL HER THAT PT WOULD LIKE TO SPEAK TO HER IN THE MORNING. PT WAS SATISFIED WITH THIS RESPONSE FROM [employer] AND WENT BACK TO HIS ROOM. REFUSED ANY PRN MEDICATION WHEN OFFERED BY STAFF.
[2021-05-12 06:00] VITALS: BP 112/65; PULSE 95; RESP 18; TEMP 36.6; O2SAT 99
[2021-05-12] MEDS: Paliperidone ER 6 MG TAB.ER.24 PO (08:28)
[2021-05-12 16:26] VITALS: BP 114/63; PULSE 81; RESP 18; TEMP 36.6; O2SAT 99
--- NOTE | 2021-05-12 21:32 | P.PNPSI_ITS ---
Subjective Subjective Date of Service: 05/12/21 Reason For Visit: Schizophrenia Subjective Notes: Section 8 Healthcare Proxy: No Guardianship: No Medical Problems Affecting Mental Status: No Interim History: Pt expressed concern about missing court dates in [facility]. As a result he is asking to leave-explained Section VIII. Irritable and angry at times. Presents with paranoia, perceptual alterations and intermittent agitation. I don't want to talk to you if you don't tell me what I want to hear. Medication Compliance: Yes Side effects from medications: No Attending Groups: No Review of Systems Acute medical concerns: No Medical Review of Systems: unchanged Review of Systems Reports behavioral changes, Reports confusion and Reports memory loss Psychiatric: Reports anxiety, Reports behavioral changes, Reports confusion, Reports depression, Reports difficulty concentrating, Reports auditory hallucinations, Reports irritability, Reports anhedonia, Reports memory loss, Reports mood swings, Reports paranoia, Reports visual hallucinations and Reports hallucinations Mental Status Exam Mental Status Exam Patient Appearance: Disheveled Patient Orientation: Person and Place Level of Consciousness: Alert Patient Behavior: Guarded, Talkative, Suspicious, Aggressive, Restless, Belligerent, Verbal Threats, Swearing, Anxious, Fearful, Resistive to Care, Distractible, Good Eye Contact, Uncooperative and Pacing Mood Description: Labile Affect Description: Labile Patient Cognition Impaired: No Ability to Follow Directions: Fair Speech Pattern: Spontaneous Speech Memory Description: Remote Impaired and Episodic Impaired Hallucinations: Auditory and Visual Delusions: Paranoid Ideation, Grandiose and Present Perceptual Disturbances: Depersonalization and Derealization Thought Process: Racing and Distracted Thought Content: positive for Flight of Ideas, positive for [place], positive for Thought Blocking, positive for Tangential, positive for Suicidal Ideation (denies) and positive for Homicidal Ideation (denies) Depressive Symptoms: Increased Anxiety, Diff. Making Decisions, Increased Irritability and Difficulty Concentrating Abnormal Motor Activity Signs and Symptoms: Aggression, Agitation and Restlessness Judgement: Poor Diagnostics Vital Signs (24Hr): Vital Signs - 24 hr 05/12/21 06:00 05/12/21 16:26 Temperature 97.9 F 97.9 F Pulse Rate 95 81 Respiratory Rate 18 18 Blood Pressure 112/65 114/63 Pulse Oximetry 99 99 BMI result Body Mass Index 23.6 Labs Results: 04/21/21 07:08 05/13/21 11:23 Imaging Radiology Impressions: ITS Impressions Face X-Ray 04/21/21 15:29 IMPRESSION: No fracture seen. Orbit X-Ray 04/21/21 15:29 IMPRESSION: No fracture seen. Cervical Spine CT 04/24/21 22:24 IMPRESSION: No evidence of acute intracranial abnormalities. No evidence of acute maxillofacial fractures. However, evaluation of the inferior mandibular body is limited due to motion and although no definite fractures or surrounding soft tissue thickening/hematoma are identified, clinical correlation for pain/tenderness in the inferior mandible should be obtained as this is suboptimally assessed in this study. No acute cervical fractures or malalignment. Face CT 04/24/21 22:24 IMPRESSION: No evidence of acute intracranial abnormalities. No evidence of acute maxillofacial fractures. However, evaluation of the inferior mandibular body is limited due to motion and although no definite fractures or surrounding soft tissue thickening/hematoma are identified, clinical correlation for pain/tenderness in the inferior mandible should be obtained as this is suboptimally assessed in this study. No acute cervical fractures or malalignment. Head CT 04/24/21 22:24 IMPRESSION: No evidence of acute intracranial abnormalities. No evidence of acute maxillofacial fractures. However, evaluation of the inferior mandibular body is limited due to motion and although no definite fractures or surrounding soft tissue thickening/hematoma are identified, clinical correlation for pain/tenderness in the inferior mandible should be obtained as this is suboptimally assessed in this study. No acute cervical fractures or malalignment. Medications Medications Current Medications Acetaminophen (Acetaminophen 325 Mg Tablet) 650 mg PO Q6H PRN PRN Reason: Headache/Pain Mild Scale (1-3) Al Hydroxide/Mg Hydroxide (Magnesium Hydrox/Alum Hydrox 30 Ml Oral.Susp) 30 ml PO Q6H PRN PRN Reason: Heartburn/Nausea Benztropine Mesylate (Benztropine Mesylate 1 Mg Tablet) 1 mg PO TID PRN PRN Reason: Extrapyramidal Effects Chlorpromazine HCl (Chlorpromazine Hcl 100 Mg Tablet) 100 mg PO BID PRN PRN Reason: psychotic agitation Chlorpromazine HCl (Chlorpromazine Hcl 50 Mg/2 Ml Ampul) 100 mg IM DAILY PRN PRN Reason: if pt refuses PO Invega/court Diphenhydramine HCl (Diphenhydramine Hcl 25 Mg Tablet) 50 mg PO Q4H PRN PRN Reason: agitation Last Admin: 04/28/21 20:42 Dose: 50 mg Documented by: Hydroxyzine HCl (Hydroxyzine Hcl 25 Mg Tablet) 25 mg PO QID PRN PRN Reason: Anxiety Lorazepam (Lorazepam 1 Mg Tablet) 2 mg PO Q4H PRN PRN Reason: agitation Last Admin: 05/06/21 05:49 Dose: 2 mg Documented by: Magnesium Hydroxide (Milk Of Magnesia 30 Ml Oral.Susp) 30 ml PO DAILY PRN PRN Reason: Constipation Multi-Ingred Cream/Lotion/Oil/Oint (Mineral Oil/Petrolatum,White 106 Gm Tube) 1 appl TOPICAL TID MARGAUX; Protocol Last Admin: 05/12/21 20:51 Dose: Not Given Documented by: Nicotine (Nicotine 21 Mg Patch.Td24) 21 mg TRANSDERMA DAILY PRN PRN Reason: smoking cessation Nicotine Polacrilex (Nicotine Polacrilex 2 Mg Gum) 4 mg BUCCAL Q2H PRN PRN Reason: Nicotine Cravings Paliperidone (Paliperidone Er 6 Mg Tab.Er.24) 6 mg PO DAILY MARGAUX Last Admin: 05/12/21 08:28 Dose: 6 mg Documented by: Polyethylene Glycol (Polyethylene Glycol 3350 17 Gm Powd.Pack) 17 gm PO DAILY PRN PRN Reason: CONSTIPATION Senna (Sennosides 8.6 Mg Tablet) 17.2 mg PO BEDTIME MARGAUX Last Admin: 05/12/21 20:51 Dose: Not Given Documented by: Trazodone HCl (Trazodone Hcl 50 Mg Tablet) 50 mg PO BEDTIME PRN PRN Reason: Insomnia Allergies Allergies Allergy/AdvReac Type Severity Reaction Status Date / Time haloperidol [From HALDOL] Allergy Severe DYSTONIA Verified 04/19/21 06:28 ziprasidone [From GEODON] Allergy Severe DYSTONIA Verified 04/19/21 06:28 Assessment & Plan Assessment & Plan (1) Schizoaffective disorder, bipolar type: Status: Acute Code(s): F25.0 - Schizoaffective disorder, bipolar type Assessment and Plan: Continues with psychosis, aggressive agitation, lability of mood. Requiring restraint. Thorazine 50 mg tid with IM back up as needed Thorazine 100 mg bid prn with IM back up as needed. Initially, pt and I discussed an Abiligloriay Mainjasbira trial to address symptoms. From observation of pt's intensity of psychosis, agitation, lability, this does not appear to be the best agent to meet this level of symptom intensity. Will discuss with pt an Invega trial with transition to Sustenna during his hospitalization with initiation. 05/07/21 Invega 6 mg 05/08. Continue Thorazine prn. (pt required IM back up on 05/07/21) 05/08/21 Continue current plan of care. 05/09/21: Ct w plan per [facility] order 05/10/21: Ct Rx plan 05/11/21: Continue Invega titration. 05/12/21 Pt tolerating Invega. Will begin Sustenna on 05/13. I spent 25 minutes with the patient and/or on the patient floor today, greater than?50% of which was spent counseling/coordinating care. Patient educated on: therapeutic strategies Informed Consent: further education needed Reason for contiued inpatient stay Substantial Risk for: harm to self, harm to others, inability to function and r apid decompensation
[2021-05-13] MEDS: Paliperidone ER 9 MG TAB.ER.24 PO (08:57)
[2021-05-13 08:58] VITALS: BP 120/59; PULSE 94; RESP 16; TEMP 36.4; O2SAT 97
[2021-05-13 12:02] LABS: Anion Gap 12 (12-20); Blood Urea Nitrogen 17 mg/dL (9-16); Calcium 9.6 mg/dL (8.4-10.2); Carbon Dioxide 25 mmol/L (22-29); Chloride 106 mmol/L (96-108); Creatinine Clr Calc Pharmacy 89.7; Estimated Glomerular Filt Rate > 60; Glucose Random 97 mg/dL (60-115); Sodium 139 mmol/L (135-145)
[2021-05-13] MEDS: Paliperidone Palmitate 234 MG/1.5 ML SYRINGE IM (12:46)
[2021-05-13 18:00] VITALS: RESP 16
--- NOTE | 2021-05-13 18:37 | P.PNPSI_ITS ---
Subjective Subjective Date of Service: 05/13/21 Reason For Visit: Schizophrenia Subjective Notes: Section 8 Interim History: Pt asked to meet to discuss his treatment plan. He became angry, loud and oppositional when we reviewed Section VIII and plan of care, so he left our meeting. Tolerated initial dosing of Invega Sustenna 234 mg. Follow up dosing due 05/21/21. Medication Compliance: Yes Side effects from medications: No Attending Groups: No Review of Systems Acute medical concerns: No Medical Review of Systems: unchanged Review of Systems Reports behavioral changes Psychiatric: Reports anxiety, Reports behavioral changes, Reports difficulty concentrating, Reports auditory hallucinations, Reports hopelessness, Reports irritability, Reports anhedonia, Reports mood swings, Reports paranoia, Reports visual hallucinations and Reports hallucinations Mental Status Exam Mental Status Exam Patient Appearance: Disheveled Patient Orientation: Person and Place Level of Consciousness: Alert Patient Behavior: Guarded, Talkative, Suspicious, Aggressive, Restless, Belligerent, Verbal Threats, Swearing, Anxious, Fearful, Resistive to Care, Distractible, Good Eye Contact, Uncooperative and Pacing Mood Description: Labile Affect Description: Labile Patient Cognition Impaired: No Ability to Follow Directions: Fair Speech Pattern: Spontaneous Speech Memory Description: Remote Impaired and Episodic Impaired Hallucinations: Auditory and Visual Delusions: Paranoid Ideation, Grandiose and Present Perceptual Disturbances: Depersonalization and Derealization Thought Process: Racing and Distracted Thought Content: positive for Flight of Ideas, positive for [place], positive for Thought Blocking, positive for Tangential, positive for Suicidal Ideation (denies) and positive for Homicidal Ideation (denies) Depressive Symptoms: Increased Anxiety, Diff. Making Decisions, Increased Irritability and Difficulty Concentrating Abnormal Motor Activity Signs and Symptoms: Aggression, Agitation and Re stlessness Judgement: Poor Diagnostics Vital Signs (24Hr): Vital Signs - 24 hr 05/13/21 08:58 05/13/21 18:00 Temperature 97.6 F Pulse Rate 94 Respiratory Rate 16 16 Blood Pressure 120/59 L Pulse Oximetry 97 BMI result Body Mass Index 23.6 Labs Results: 04/21/21 07:08 05/13/21 11:23 Labs: Laboratory Results - last 48 hr 05/13/21 11:23 Sodium 139 Potassium 4.0 Chloride 106 Carbon Dioxide 25 Anion Gap 12 BUN 17 H Creatinine 1.16 Estim Creat Clear Calc 89.7 Estimated GFR > 60 Random Glucose 97 Calcium 9.6 Imaging Radiology Impressions: ITS Impressions Face X-Ray 04/21/21 15:29 IMPRESSION: No fracture seen. Orbit X-Ray 04/21/21 15:29 IMPRESSION: No fracture seen. Cervical Spine CT 04/24/21 22:24 IMPRESSION: No evidence of acute intracranial abnormalities. No evidence of acute maxillofacial fractures. However, evaluation of the inferior mandibular body is limited due to motion and although no definite fractures or surrounding soft tissue thickening/hematoma are identified, clinical correlation for pain/tenderness in the inferior mandible should be obtained as this is suboptimally assessed in this study. No acute cervical fractures or malalignment. Face CT 04/24/21 22:24 IMPRESSION: No evidence of acute intracranial abnormalities. No evidence of acute maxillofacial fractures. However, evaluation of the inferior mandibular body is limited due to motion and although no definite fractures or surrounding soft tissue thickening/hematoma are identified, clinical correlation for pain/tenderness in the inferior mandible should be obtained as this is suboptimally assessed in this study. No acute cervical fractures or malalignment. Head CT 04/24/21 22:24 IMPRESSION: No evidence of acute intracranial abnormalities. No evidence of acute maxillofacial fractures. However, evaluation of the inferior mandibular body is limited due to motion and although no definite fractures or surrounding soft tissue thickening/hematoma are identified, clinical correlation for pain/tenderness in the inferior mandible should be obtained as this is suboptimally assessed in this study. No acute cervical fractures or malalignment. Medications Medications Current Medications Acetaminophen (Acetaminophen 325 Mg Tablet) 650 mg PO Q6H PRN PRN Reason: Headache/Pain Mild Scale (1-3) Al Hydroxide/Mg Hydroxide (Magnesium Hydrox/Alum Hydrox 30 Ml Oral.Susp) 30 ml PO Q6H PRN PRN Reason: Heartburn/Nausea Benztropine Mesylate (Benztropine Mesylate 1 Mg Tablet) 1 mg PO TID PRN PRN Reason: Extrapyramidal Effects Chlorpromazine HCl (Chlorpromazine Hcl 100 Mg Tablet) 100 mg PO BID PRN PRN Reason: psychotic agitation Chlorpromazine HCl (Chlorpromazine Hcl 50 Mg/2 Ml Ampul) 100 mg IM DAILY PRN PRN Reason: if pt refuses PO Invega/court Diphenhydramine HCl (Diphenhydramine Hcl 25 Mg Tablet) 50 mg PO Q4H PRN PRN Reason: agitation Last Admin: 04/28/21 20:42 Dose: 50 mg Documented by: Hydroxyzine HCl (Hydroxyzine Hcl 25 Mg Tablet) 25 mg PO QID PRN PRN Reason: Anxiety Lorazepam (Lorazepam 1 Mg Tablet) 2 mg PO Q4H PRN PRN Reason: agitation Last Admin: 05/06/21 05:49 Dose: 2 mg Documented by: Magnesium Hydroxide (Milk Of Magnesia 30 Ml Oral.Susp) 30 ml PO DAILY PRN PRN Reason: Constipation Multi-Ingred Cream/Lotion/Oil/Oint (Mineral Oil/Petrolatum,White 106 Gm Tube) 1 appl TOPICAL TID MARGAUX; Protocol Last Admin: 05/13/21 12:46 Dose: Not Given Documented by: Nicotine (Nicotine 21 Mg Patch.Td24) 21 mg TRANSDERMA DAILY PRN PRN Reason: smoking cessation Nicotine Polacrilex (Nicotine Polacrilex 2 Mg Gum) 4 mg BUCCAL Q2H PRN PRN Reason: Nicotine Cravings Paliperidone (Paliperidone Er 9 Mg Tab.Er.24) 9 mg PO DAILY MARGAUX Last Admin: 05/13/21 08:57 Dose: 9 mg Documented by: Polyethylene Glycol (Polyethylene Glycol 3350 17 Gm Powd.Pack) 17 gm PO DAILY PRN PRN Reason: CONSTIPATION Senna (Sennosides 8.6 Mg Tablet) 17.2 mg PO BEDTIME MARGAUX Last Admin: 05/12/21 20:51 Dose: Not Given Documented by: Trazodone HCl (Trazodone Hcl 50 Mg Tablet) 50 mg PO BEDTIME PRN PRN Reason: Insomnia Allergies Allergies Allergy/AdvReac Type Severity Reaction Status Date / Time haloperidol [From HALDOL] Allergy Severe DYSTONIA Verified 04/19/21 06:28 ziprasidone [From GEODON] Allergy Severe DYSTONIA Verified 04/19/21 06:28 Assessment & Plan Assessment & Plan (1) Schizoaffective disorder, bipolar type: Status: Acute Code(s): F25.0 - Schizoaffective disorder, bipolar type Assessment and Plan: Continues with psychosis, aggressive agitation, lability of mood. Requiring restraint. Thorazine 50 mg tid with IM back up as needed Thorazine 100 mg bid prn with IM back up as needed. Initially, pt and I discussed an Abilify Maintena trial to address symptoms. From observation of pt's intensity of psychosis, agitation, lability, this does not appear to be the best agent to meet this level of symptom intensity. Will discuss with pt an Invega trial with transition to Sustenna during his hospitalization with initiation. 05/07/21 Invega 6 mg 05/08. Continue Thorazine prn. (pt required IM back up on 05/07/21) 05/08/21 Continue current plan of care. 05/09/21: Ct w plan per [facility] order 05/10/21: Ct Rx plan 05/11/21: Continue Invega titration. 05/12/21 Pt tolerating Invega. Will begin Sustenna on 05/13. 05/13/21 Sustanna given, tolerated. Support, educate, integrate into milieu for added support. I spent 35 minutes with the patient and/or on the patient floor today, greater than?50% of which was spent counseling/coordinating care. Patient educated on: medication risk/benefits and therapeutic strategies Informed Consent: understands and further education needed Reason for contiued inpatient stay Substantial Risk for: harm to self, harm to others and rapid decompensation
[2021-05-13 20:51] LABS: COVID-19 Test Negative (Negative); IDNOW Serial# 9DD0AD1C
[2021-05-14 07:00] VITALS: BMI 25.7
[2021-05-14] MEDS: Paliperidone ER 6 MG TAB.ER.24 PO (08:36)
[2021-05-14 08:37] VITALS: BP 104/59; PULSE 104; RESP 16; TEMP 36.4; O2SAT 98
--- NOTE | 2021-05-14 09:00 | ECG_ITS ---
Test Reason : qtc check Blood Pressure : / mmHG Vent. Rate : 096 BPM Atrial Rate : 096 BPM P-R Int : 154 ms QRS Dur : 094 ms QT Int : 338 ms P-R-T Axes : 069 004 046 degrees QTc Int : 427 ms Normal sinus rhythm Normal ECG When compared with ECG of 20-MAY-2004 12:53, No significant change was found Referred By: Cheryl Alvarado Electronically Signed By:LENORE CAMPBELL MD
[2021-05-14 16:45] VITALS: RESP 18
[2021-05-15 06:00] VITALS: BP 127/78; PULSE 105; RESP 16; TEMP 36.6; O2SAT 100
[2021-05-15 08:57] LABS: COVID-19 Test Negative (Negative); IDNOW Serial# 08D9AD1C
[2021-05-15] MEDS: Paliperidone ER 6 MG TAB.ER.24 PO (09:11)
--- NOTE | 2021-05-15 15:59 | P.PNPSI_ITS ---
Subjective Subjective Date of Service: 05/14/21 Reason For Visit: Schizophrenia Subjective Notes: Section 8 Interim History: Per pt request, message left for Urbano Garcia of [facility] probation dept to question pt's dates of required upcoming court appearances. Pt today appears calmer, integrating information we discussed on 05/13 and team has been discussing with him as well. Medication Compliance: Yes Side effects from medications: No Attending Groups: No Review of Systems Acute medical concerns: No Medical Review of Systems: unchanged Review of Systems Reports behavioral changes and Reports confusion Psychiatric: Reports anxiety, Reports behavioral changes, Reports confusion, Reports difficulty concentrating, Reports auditory hallucinations, Reports hopelessness, Reports irritability, Reports anhedonia, Reports mood swings, Reports paranoia, Reports visual hallucinations and Reports hallucinations Mental Status Exam Mental Status Exam Patient Appearance: Appropriate Patient Orientation: Person, Place, Time and Situation Level of Consciousness: Alert Patient Behavior: Guarded, Talkative, Cooperative and Good Eye Contact Mood Description: Apprehensive Affect Description: Constricted Patient Cognition Impaired: Yes Ability to Follow Directions: Good Speech Pattern: Spontaneous Speech Memory Description: Remote Impaired and Episodic Impaired Hallucinations: Auditory Delusions: Paranoid Ideation and Grandiose Perceptual Disturbances: Derealization Thought Process: Distracted Thought Content: positive for [place], positive for Tangential and positive for Suicidal Ideation (denies) Depressive Symptoms: Increased Anxiety Judgement: Poor Diagnostics Vital Signs (24Hr): Vital Signs - 24 hr 05/14/21 16:45 05/15/21 06:00 Temperature 97.8 F Pulse Rate 105 H Respiratory Rate 18 16 Blood Pressure 127/78 Pulse Oximetry 100 BMI result Body Mass Index 25.7 Labs Results: 04/21/21 07:08 05/13/21 11:23 Labs: Laboratory Results - last 48 hr 05/13/21 05/15/21 20:04 08:06 COVID-19 ([facility]) Negative Negative COVID-19 Clin Com See Note See Note Imaging Radiology Impressions: ITS Impressions Face X-Ray 04/21/21 15:29 IMPRESSION: No fracture seen. Orbit X-Ray 04/21/21 15:29 IMPRESSION: No fracture seen. Cervical Spine CT 04/24/21 22:24 IMPRESSION: No evidence of acute intracranial abnormalities. No evidence of acute maxillofacial fractures. However, evaluation of the inferior mandibular body is limited due to motion and although no definite fractures or surrounding soft tissue thickening/hematoma are identified, clinical correlation for pain/tenderness in the inferior mandible should be obtained as this is suboptimally assessed in this study. No acute cervical fractures or malalignment. Face CT 04/24/21 22:24 IMPRESSION: No evidence of acute intracranial abnormalities. No evidence of acute maxillofacial fractures. However, evaluation of the inferior mandibular body is limited due to motion and although no definite fractures or surrounding soft tissue thickening/hematoma are identified, clinical correlation for pain/tenderness in the inferior mandible should be obtained as this is suboptimally assessed in this study. No acute cervical fractures or malalignment. Head CT 04/24/21 22:24 IMPRESSION: No evidence of acute intracranial abnormalities. No evidence of acute maxillofacial fractures. However, evaluation of the inferior mandibular body is limited due to motion and although no definite fractures or surrounding soft tissue thickening/hematoma are identified, clinical correlation for pain/tenderness in the inferior mandible should be obtained as this is suboptimally assessed in this study. No acute cervical fractures or malalignment. Medications Medications Current Medications Acetaminophen (Acetaminophen 325 Mg Tablet) 650 mg PO Q6H PRN PRN Reason: Headache/Pain Mild Scale (1-3) Al Hydroxide/Mg Hydroxide (Magnesium Hydrox/Alum Hydrox 30 Ml Oral.Susp) 30 ml PO Q6H PRN PRN Reason: Heartburn/Nausea Benztropine Mesylate (Benztropine Mesylate 1 Mg Tablet) 1 mg PO TID PRN PRN Reason: Extrapyramidal Effects Chlorpromazine HCl (Chlorpromazine Hcl 100 Mg Tablet) 100 mg PO BID PRN PRN Reason: psychotic agitation Diphenhydramine HCl (Diphenhydramine Hcl 25 Mg Tablet) 50 mg PO Q4H PRN PRN Reason: agitation Last Admin: 04/28/21 20:42 Dose: 50 mg Documented by: Hydroxyzine HCl (Hydroxyzine Hcl 25 Mg Tablet) 25 mg PO QID PRN PRN Reason: Anxiety Lorazepam (Lorazepam 1 Mg Tablet) 2 mg PO Q4H PRN PRN Reason: agitation Last Admin: 05/06/21 05:49 Dose: 2 mg Documented by: Magnesium Hydroxide (Milk Of Magnesia 30 Ml Oral.Susp) 30 ml PO DAILY PRN PRN Reason: Constipation Multi-Ingred Cream/Lotion/Oil/Oint (Mineral Oil/Petrolatum,White 106 Gm Tube) 1 appl TOPICAL TID MARGAUX; Protocol Last Admin: 05/15/21 13:51 Dose: Not Given Documented by: Nicotine (Nicotine 21 Mg Patch.Td24) 21 mg TRANSDERMA DAILY PRN PRN Reason: smoking cessation Nicotine Polacrilex (Nicotine Polacrilex 2 Mg Gum) 4 mg BUCCAL Q2H PRN PRN Reason: Nicotine Cravings Paliperidone (Paliperidone Er 6 Mg Tab.Er.24) 6 mg PO DAILY [facility] Last Admin: 05/15/21 09:11 Dose: 6 mg Documented by: Paliperidone Palmitate (Paliperidone Palmitate 156 Mg/Ml Syringe) 156 mg IM ONCE ONE Stop: 05/21/21 09:01 Polyethylene Glycol (Polyethylene Glycol 3350 17 Gm Powd.Pack) 17 gm PO DAILY PRN PRN Reason: CONSTIPATION Senna (Sennosides 8.6 Mg Tablet) 17.2 mg PO BEDTIME [facility] Last Admin: 05/14/21 20:02 Dose: Not Given Documented by: Trazodone HCl (Trazodone Hcl 50 Mg Tablet) 50 mg PO BEDTIME PRN PRN Reason: Insomnia Allergies Allergies Allergy/AdvReac Type Severity Reaction Status Date / Time haloperidol [From HALDOL] Allergy Severe DYSTONIA Verified 04/19/21 06:28 ziprasidone [From GEODON] Allergy Severe DYSTONIA Verified 04/19/21 06:28 Assessment & Plan Assessment & Plan (1) Schizoaffective disorder, bipolar type: Status: Acute Code(s): F25.0 - Schizoaffective disorder, bipolar type Assessment and Plan: Continues with psychosis, aggressive agitation, lability of mood. Requiring rest raint. Thorazine 50 mg tid with IM back up as needed Thorazine 100 mg bid prn with IM back up as needed. Initially, pt and I discussed an Abilify Maintena trial to address symptoms. From observation of pt's intensity of psychosis, agitation, lability, this does not appear to be the best agent to meet this level of symptom intensity. Will discuss with pt an Invega trial with transition to Sustenna during his hospitalization with initiation. 05/07/21 Invega 6 mg 05/08. Continue Thorazine prn. (pt required IM back up on 05/07/21) 05/08/21 Continue current plan of care. 05/09/21: Ct w plan per [facility] order 05/10/21: Ct Rx plan 05/11/21: Continue Invega titration. 05/12/21 Pt tolerating Invega. Will begin Sustenna on 05/13. 05/13/21 Sustanna given, tolerated. Support, educate, integrate into milieu for added support. 05/14/21 Tolerating Sustenna. Calmer, more focused today. Asking for help with legal issues, attempting to organize his responsibilities I spent 20 minutes with the patient and/or on the patient floor today, greater than?50% of which was spent counseling/coordinating care. Patient educated on: therapeutic strategies Informed Consent: further education needed Reason for contiued inpatient stay Substantial Risk for: harm to self, harm to others, inability to function and rapid decompensation
--- NOTE | 2021-05-15 17:12 | P.PNPSI_ITS ---
Subjective Subjective Date of Service: 05/15/21 Reason For Visit: Schizophrenia Subjective Notes: Section 8 Interim History: Improving, calmer, clear. Met with pt and Alison of [employer]. Alison will be leaving the agency so she wanted to discuss with pt her termination and another person taking over his case. 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 Pt was encouraged to continue with services although he does no longer want to work with Davis from [facility]. Alison will pass this along. Medication Compliance: Yes Side effects from medications: No Attending Groups: No Review of Systems Acute medical concerns: No Medical Review of Systems: unchanged Review of Systems Reports behavioral changes and Reports confusion Psychiatric: Reports behavioral changes, Reports confusion, Reports difficulty concentrating, Reports auditory hallucinations, Reports irritability, Reports anhedonia, Reports mood swings, Reports paranoia and Reports visual hallucinations Mental Status Exam Mental Status Exam Patient Appearance: Appropriate Patient Orientation: Person, Place, Time and Situation Level of Consciousness: Alert Patient Behavior: Guarded, Talkative, Cooperative and Good Eye Contact Mood Description: Apprehensive Affect Description: Constricted Patient Cognition Impaired: Yes Ability to Follow Directions: Good Speech Pattern: Spontaneous Speech Memory Description: Remote Impaired and Episodic Impaired Hallucinations: Auditory Delusions: Paranoid Ideation and Grandiose Perceptual Disturbances: Derealization Thought Process: Distracted Thought Content: positive for Circumstantial, positive for Tangential and positive for Suicidal Ideation (denies) Depressive Symptoms: Increased Anxiety Judgement: Poor Diagnostics Vital Signs (24Hr): Vital Signs - 24 hr 05/15/21 06:00 Temperature 97.8 F Pulse Rate 105 H Respiratory Rate 16 Blood Pressure 127/78 Pulse Oximetry 100 BMI result Body Mass Index 25.7 Labs Results: 04/21/21 07:08 05/13/21 11:23 Labs: Laboratory Results - last 48 hr 05/13/21 05/15/21 20:04 08:06 COVID-19 ([facility]) Negative Negative COVID-19 Clin Com See Note See Note Imaging Radiology Impressions: ITS Impressions Face X-Ray 04/21/21 15:29 IMPRESSION: No fracture seen. Orbit X-Ray 04/21/21 15:29 IMPRESSION: No fracture seen. Cervical Spine CT 04/24/21 22:24 IMPRESSION: No evidence of acute intracranial abnormalities. No evidence of acute maxillofacial fractures. However, evaluation of the inferior mandibular body is limited due to motion and although no definite fractures or surrounding soft tissue thickening/hematoma are identified, clinical correlation for pain/tenderness in the inferior mandible should be obtained as this is suboptimally assessed in this study. No acute cervical fractures or malalignment. Face CT 04/24/21 22:24 IMPRESSION: No evidence of acute intracranial abnormalities. No evidence of acute maxillofacial fractures. However, evaluation of the inferior mandibular body is limited due to motion and although no definite fractures or surrounding soft tissue thickening/hematoma are identified, clinical correlation for pain/tenderness in the inferior mandible should be obtained as this is suboptimally assessed in this study. No acute cervical fractures or malalignment. Head CT 04/24/21 22:24 IMPRESSION: No evidence of acute intracranial abnormalities. No evidence of acute maxillofacial fractures. However, evaluation of the inferior mandibular body is limited due to motion and although no definite fractures or surrounding soft tissue thickening/hematoma are identified, clinical correlation for pain/tenderness in the inferior mandible should be obtained as this is suboptimally assessed in this study. No acute cervical fractures or malalignment. Medications Medications Current Medications Acetaminophen (Acetaminophen 325 Mg Tablet) 650 mg PO Q6H PRN PRN Reason: Headache/Pain Mild Scale (1-3) Al Hydroxide/Mg Hydroxide (Magnesium Hydrox/Alum Hydrox 30 Ml Oral.Susp) 30 ml PO Q6H PRN PRN Reason: Heartburn/Nausea Benztropine Mesylate (Benztropine Mesylate 1 Mg Tablet) 1 mg PO TID PRN PRN Reason: Extrapyramidal Effects Chlorpromazine HCl (Chlorpromazine Hcl 100 Mg Tablet) 100 mg PO BID PRN PRN Reason: psychotic agitation Diphenhydramine HCl (Diphenhydramine Hcl 25 Mg Tablet) 50 mg PO Q4H PRN PRN Reason: agitation Last Admin: 04/28/21 20:42 Dose: 50 mg Documented by: Hydroxyzine HCl (Hydroxyzine Hcl 25 Mg Tablet) 25 mg PO QID PRN PRN Reason: Anxiety Lorazepam (Lorazepam 1 Mg Tablet) 2 mg PO Q4H PRN PRN Reason: agitation Last Admin: 05/06/21 05:49 Dose: 2 mg Documented by: Magnesium Hydroxide (Milk Of Magnesia 30 Ml Oral.Susp) 30 ml PO DAILY PRN PRN Reason: Constipation Multi-Ingred Cream/Lotion/Oil/Oint (Mineral Oil/Petrolatum,White 106 Gm Tube) 1 appl TOPICAL TID [facility]; Protocol Last Admin: 05/15/21 13:51 Dose: Not Given Documented by: Nicotine (Nicotine 21 Mg Patch.Td24) 21 mg TRANSDERMA DAILY PRN PRN Reason: smoking cessation Nicotine Polacrilex (Nicotine Polacrilex 2 Mg Gum) 4 mg BUCCAL Q2H PRN PRN Reason: Nicotine Cravings Paliperidone (Paliperidone Er 6 Mg Tab.Er.24) 6 mg PO DAILY [facility] Last Admin: 05/15/21 09:11 Dose: 6 mg Documented by: Paliperidone Palmitate (Paliperidone Palmitate 156 Mg/Ml Syringe) 156 mg IM ONCE ONE Stop: 05/21/21 09:01 Polyethylene Glycol (Polyethylene Glycol 3350 17 Gm Powd.Pack) 17 gm PO DAILY PRN PRN Reason: CONSTIPATION Senna (Sennosides 8.6 Mg Tablet) 17.2 mg PO BEDTIME [facility] Last Admin: 05/14/21 20:02 Dose: Not Given Documented by: Trazodone HCl (Trazodone Hcl 50 Mg Tablet) 50 mg PO BEDTIME PRN PRN Reason: Insomnia Allergies Allergies Allergy/AdvReac Type Severity Reaction Status Date / Time haloperidol [From HALDOL] Allergy Severe DYSTONIA Verified 04/19/21 06:28 ziprasidone [From GEODON] Allergy Severe DYSTONIA Verified 04/19/21 06:28 Assessment & Plan Assessment & Plan (1) Schizoaffective disorder, bipolar type: Status: Acute Code(s): F25.0 - Schizoaffective disorder, bipolar type Assessment and Plan: Continues with psychosis, aggressive agitation, lability of mood. Requiring restraint. Thorazine 50 mg tid with IM back up as needed Thorazine 100 mg bid prn with IM back up as needed. Initially, pt and I discussed an Abilify Maintena trial to address symptoms. From observation of pt's intensity of psychosis, agitation, lability, this does not appear to be the best agent to meet this level of symptom intensity. Will discuss with pt an Invega trial with transition to Sustenna during his hospitalization with initiation. 05/07/21 Invega 6 mg 05/08. Continue Thorazine prn. (pt required IM back up on 05/07/21) 05/08/21 Continue current plan of care. 05/09/21: Ct w plan per [facility] order 05/10/21: Ct Rx plan 05/11/21: Continue Invega titration. 05/12/21 Pt tolerating Invega. Will begin Sustenna on 05/13. 05/13/21 Sustanna given, tolerated. Support, educate, integrate into milieu for added support. 05/14/21 Tolerating Sustenna. Calmer, more focused today. Asking for help with legal issues, attempting to organize his responsibilities 05/15/21 Continue current plan. I spent 45 minutes with the patient and/or on the patient floor today, greater than?50% of which was spent counseling/coordinating care. Patient educated on: diagnosis, medication risk/benefits, therapeutic strategies and other Informed Consent: understands and further education needed Reason for contiued inpatient stay Substantial Risk for: inability to function and rapid decompensation
[2021-05-16 06:00] VITALS: BP 119/66; PULSE 91; RESP 18; TEMP 36.7; O2SAT 99
[2021-05-16] MEDS: Paliperidone ER 6 MG TAB.ER.24 PO (09:28)
[2021-05-16 18:00] VITALS: BP 124/68; PULSE 94; RESP 16; TEMP 36.7
--- NOTE | 2021-05-16 18:08 | P.PNPSI_ITS ---
Subjective Subjective Date of Service: 05/16/21 Reason For Visit: Schizophrenia Interim History: Labile, at times clear, calm, oriented, discussing concerns about upcoming court dates. Then, in his room, responding to internal stimuli, self-dialogueing, yelling at voices. Medication Compliance: Yes Side effects from medications: No Attending Groups: No Review of Systems Acute medical concerns: No Medical Review of Systems: unchanged Review of Systems Reports behavioral changes, Reports confusion and Reports memory loss Psychiatric: Reports anxiety, Reports behavioral changes, Reports confusion, Reports depression, Reports difficulty concentrating, Reports auditory hallucinations, Reports irritability, Reports anhedonia, Reports memory loss, Reports mood swings, Reports paranoia, Reports visual hallucinations, Reports hallucinations and Reports homicidal ideation Mental Status Exam Mental Status Exam Patient Appearance: Appropriate Patient Orientation: Person, Place, Time and Situation Level of Consciousness: Alert Patient Behavior: Guarded, Talkative, Cooperative and Good Eye Contact Mood Description: Apprehensive Affect Description: Constricted Patient Cognition Impaired: Yes Ability to Follow Directions: Good Speech Pattern: Spontaneous Speech Memory Description: Remote Impaired and Episodic Impaired Hallucinations: Auditory Delusions: Paranoid Ideation and Grandiose Perceptual Disturbances: Derealization Thought Process: Distracted Thought Content: positive for Circumstantial, positive for Tangential and positive for Suicidal Ideation (denies) Depressive Symptoms: Increased Anxiety Judgement: Poor Diagnostics Vital Signs (24Hr): Vital Signs - 24 hr 05/16/21 06:00 Temperature 98.0 F Pulse Rate 91 Respiratory Rate 18 Blood Pressure 119/66 Pulse Oximetry 99 BMI result Body Mass Index 25.7 Labs Results: 04/21/21 07:08 05/13/21 11:23 Labs: Laboratory Results - last 48 hr 05/15/21 08:06 COVID-19 ([facility]) Negative COVID-19 Clin Com See Note Imaging Radiology Impressions: ITS Impressions Face X-Ray 04/21/21 15:29 IMPRESSION: No fracture seen. Orbit X-Ray 04/21/21 15:29 IMPRESSION: No fracture seen. Cervical Spine CT 04/24/21 22:24 IMPRESSION: No evidence of acute intracranial abnormalities. No evidence of acute maxillofacial fractures. However, evaluation of the inferior mandibular body is limited due to motion and although no definite fractures or surrounding soft tissue thickening/hematoma are identified, clinical correlation for pain/tenderness in the inferior mandible should be obtained as this is suboptimally assessed in this study. No acute cervical fractures or malalignment. Face CT 04/24/21 22:24 IMPRESSION: No evidence of acute intracranial abnormalities. No evidence of acute maxillofacial fractures. However, evaluation of the inferior mandibular body is limited due to motion and although no definite fractures or surrounding soft tissue thickening/hematoma are identified, clinical correlation for pain/tenderness in the inferior mandible should be obtained as this is suboptimally assessed in this study. No acute cervical fractures or malalignment. Head CT 04/24/21 22:24 IMPRESSION: No evidence of acute intracranial abnormalities. No evidence of acute maxillofacial fractures. However, evaluation of the inferior mandibular body is limited due to motion and although no definite fractures or surrounding soft tissue thickening/hematoma are identified, clinical correlation for pain/tenderness in the inferior mandible should be obtained as this is suboptimally assessed in this study. No acute cervical fractures or malalignment. Medications Medications Current Medications Acetaminophen (Acetaminophen 325 Mg Tablet) 650 mg PO Q6H PRN PRN Reason: Headache/Pain Mild Scale (1-3) Al Hydroxide/Mg Hydroxide (Magnesium Hydrox/Alum Hydrox 30 Ml Oral.Susp) 30 ml PO Q6H PRN PRN Reason: Heartburn/Nausea Benztropine Mesylate (Benztropine Mesylate 1 Mg Tablet) 1 mg PO TID PRN PRN Reason: Extrapyramidal Effects Chlorpromazine HCl (Chlorpromazine Hcl 100 Mg Tablet) 100 mg PO BID PRN PRN Reason: psychotic agitation Diphenhydramine HCl (Diphenhydramine Hcl 25 Mg Tablet) 50 mg PO Q4H PRN PRN Reason: agitation Last Admin: 04/28/21 20:42 Dose: 50 mg Documented by: Hydroxyzine HCl (Hydroxyzine Hcl 25 Mg Tablet) 25 mg PO QID PRN PRN Reason: Anxiety Lorazepam (Lorazepam 1 Mg Tablet) 2 mg PO Q4H PRN PRN Reason: agitation Last Admin: 05/06/21 05:49 Dose: 2 mg Documented by: Magnesium Hydroxide (Milk Of Magnesia 30 Ml Oral.Susp) 30 ml PO DAILY PRN PRN Reason: Constipation Multi-Ingred Cream/Lotion/Oil/Oint (Mineral Oil/Petrolatum,White 106 Gm Tube) 1 appl TOPICAL TID [facility]; Protocol Last Admin: 05/16/21 18:04 Dose: Not Given Documented by: Nicotine (Nicotine 21 Mg Patch.Td24) 21 mg TRANSDERMA DAILY PRN PRN Reason: smoking cessation Nicotine Polacrilex (Nicotine Polacrilex 2 Mg Gum) 4 mg BUCCAL Q2H PRN PRN Reason: Nicotine Cravings Paliperidone (Paliperidone Er 6 Mg Tab.Er.24) 6 mg PO DAILY [facility] Last Admin: 05/16/21 09:28 Dose: 6 mg Documented by: Paliperidone Palmitate (Paliperidone Palmitate 156 Mg/Ml Syringe) 156 mg IM ONCE ONE Stop: 05/21/21 09:01 Polyethylene Glycol (Polyethylene Glycol 3350 17 Gm Powd.Pack) 17 gm PO DAILY PRN PRN Reason: CONSTIPATION Senna (Sennosides 8.6 Mg Tablet) 17.2 mg PO BEDTIME [facility] Last Admin: 05/16/21 18:04 Dose: Not Given Documented by: Trazodone HCl (Trazodone Hcl 50 Mg Tablet) 50 mg PO BEDTIME PRN PRN Reason: Insomnia Allergies Allergies Allergy/AdvReac Type Severity Reaction Status Date / Time haloperidol [From HALDOL] Allergy Severe DYSTONIA Verified 04/19/21 06:28 ziprasidone [From GEODON] Allergy Severe DYSTONIA Verified 04/19/21 06:28 Assessment & Plan Assessment & Plan (1) Schizoaffective disorder, bipolar type: Status: Acute Code(s): F25.0 - Schizoaffective disorder, bipolar type Assessment and Plan: Continues with psychosis, aggressive agitation, lability of mood. Requiring restraint. Thorazine 50 mg tid with IM back up as needed Thorazine 100 mg bid prn with IM back up as needed. Initially, pt and I discussed an Abilify Maintena trial to address symptoms. From observation of pt's intensity of psychosis, agitation, lability, this does not appear to be the best agent to meet this level of symptom intensity. Will discuss with pt an Invega trial with transition to Sustenna during his hospitalization with initiation. 05/07/21 Invega 6 mg 05/08. Continue Thorazine prn. (pt required IM back up on 05/07/21) 05/08/21 Continue current plan of care. 05/09/21: Ct w plan per [facility] order 05/10/21: Ct Rx plan 05/11/21: Continue Invega titration. 05/12/21 Pt tolerating Invega. Will begin Sustenna on 05/13. 05/13/21 Sustanna given, tolerated. Support, educate, integrate into milieu for added support. 05/14/21 Tolerating Sustenna. Calmer, more focused today. Asking for help with legal issues, attempting to organize his responsibilities 05/15/21 Continue current plan. 05/16/21 Continue current plan I spent minutes with the patient and/or on the patient floor today, great er than?50% of which was spent counseling/coordinating care. Patient educated on: therapeutic strategies and other Informed Consent: further education needed Reason for contiued inpatient stay Substantial Risk for: harm to self, harm to others, inability to function and rapid decompensation
[2021-05-17 06:00] VITALS: BP 108/59; PULSE 79; RESP 18; TEMP 36.2; O2SAT 98
[2021-05-17] MEDS: Paliperidone ER 6 MG TAB.ER.24 PO (11:10)
--- NOTE | 2021-05-17 15:45 | P.PNPSI_ITS ---
Subjective Subjective Date of Service: 05/17/21 Reason For Visit: Schizophrenia Interim History: Pt anxious about legal charges and about not being able to connect with his sister as she hung up the phone on him recently. Breakthrough sx of psychosis still present-pt self-dialoguing in his room-yelling at someone. In milieu presentation, calm, engaging, wanting to elbow bump and with many questions and concerns which will need to be addressed when court opens on 05/18. Medication Compliance: Yes (pt late with PO this a.m. with symptoms) Side effects from medications: No Attending Groups: No Review of Systems Acute medical concerns: No Medical Review of Systems: unchanged Review of Systems Reports behavioral changes, Reports confusion and Reports memory loss Psychiatric: Reports anxiety, Reports behavioral changes, Reports confusion, Reports depression, Reports difficulty concentrating, Reports auditory hallucinations, Reports irritability, Reports anhedonia, Reports memory loss, Reports mood swings, Reports paranoia, Reports visual hallucinations, Reports hallucinations and Reports homicidal ideation Mental Status Exam Mental Status Exam Patient Appearance: Appropriate Patient Orientation: Person, Place, Time and Situation Level of Consciousness: Alert Patient Behavior: Guarded, Talkative, Cooperative and Good Eye Contact Mood Description: Apprehensive Affect Description: Constricted Patient Cognition Impaired: Yes Ability to Follow Directions: Good Speech Pattern: Spontaneous Speech Memory Description: Remote Impaired and Episodic Impaired Hallucinations: Auditory Delusions: Paranoid Ideation and Grandiose Perceptual Disturbances: Derealization Thought Process: Distracted Thought Content: positive for Circumstantial, positive for Tangential and positive for Suicidal Ideation (denies) Depressive Symptoms: Increased Anxiety Judgement: Poor Diagnostics Vital Signs (24Hr): Vital Signs - 24 hr 05/16/21 18:00 05/17/21 06:00 Temperature 98.1 F 97.1 F Pulse Rate 94 79 Respiratory Rate 16 18 Blood Pressure 124/68 108/59 L Pulse Oximetry 98 BMI result Body Mass Index 25.7 Labs Results: 04/21/21 07:08 05/13/21 11:23 Imaging Radiology Impressions: ITS Impressions Face X-Ray 04/21/21 15:29 IMPRESSION: No fracture seen. Orbit X-Ray 04/21/21 15:29 IMPRESSION: No fracture seen. Cervical Spine CT 04/24/21 22:24 IMPRESSION: No evidence of acute intracranial abnormalities. No evidence of acute maxillofacial fractures. However, evaluation of the inferior mandibular body is limited due to motion and although no definite fractures or surrounding soft tissue thickening/hematoma are identified, clinical correlation for pain/tenderness in the inferior mandible should be obtained as this is suboptimally assessed in this study. No acute cervical fractures or malalignment. Face CT 04/24/21 22:24 IMPRESSION: No evidence of acute intracranial abnormalities. No evidence of acute maxillofacial fractures. However, evaluation of the inferior mandibular body is limited due to motion and although no definite fractures or surrounding soft tissue thickening/hematoma are identified, clinical correlation for pain/tenderness in the inferior mandible should be obtained as this is suboptimally assessed in this study. No acute cervical fractures or malalignment. Head CT 04/24/21 22:24 IMPRESSION: No evidence of acute intracranial abnormalities. No evidence of acute maxillofacial fractures. However, evaluation of the inferior mandibular body is limited due to motion and although no definite fractures or surrounding soft tissue thickening/hematoma are identified, clinical correlation for pain/tenderness in the inferior mandible should be obtained as this is suboptimally assessed in this study. No acute cervical fractures or malalignment. Medications Medications Current Medications Acetaminophen (Acetaminophen 325 Mg Tablet) 650 mg PO Q6H PRN PRN Reason: Headache/Pain Mild Scale (1-3) Al Hydroxide/Mg Hydroxide (Magnesium Hydrox/Alum Hydrox 30 Ml Oral.Susp) 30 ml PO Q6H PRN PRN Reason: Heartburn/Nausea Benztropine Mesylate (Benztropine Mesylate 1 Mg Tablet) 1 mg PO TID PRN PRN Reason: Extrapyramidal Effects Chlorpromazine HCl (Chlorpromazine Hcl 100 Mg Tablet) 100 mg PO BID PRN PRN Reason: psychotic agitation Diphenhydramine HCl (Diphenhydramine Hcl 25 Mg Tablet) 50 mg PO Q4H PRN PRN Reason: agitation Last Admin: 04/28/21 20:42 Dose: 50 mg Documented by: Hydroxyzine HCl (Hydroxyzine Hcl 25 Mg Tablet) 25 mg PO QID PRN PRN Reason: Anxiety Lorazepam (Lorazepam 1 Mg Tablet) 2 mg PO Q4H PRN PRN Reason: agitation Last Admin: 05/06/21 05:49 Dose: 2 mg Documented by: Magnesium Hydroxide (Milk Of Magnesia 30 Ml Oral.Susp) 30 ml PO DAILY PRN PRN Reason: Constipation Multi-Ingred Cream/Lotion/Oil/Oint (Mineral Oil/Petrolatum,White 106 Gm Tube) 1 appl TOPICAL TID [facility]; Protocol Last Admin: 05/17/21 14:14 Dose: Not Given Documented by: Nicotine (Nicotine 21 Mg Patch.Td24) 21 mg TRANSDERMA DAILY PRN PRN Reason: smoking cessation Nicotine Polacrilex (Nicotine Polacrilex 2 Mg Gum) 4 mg BUCCAL Q2H PRN PRN Reason: Nicotine Cravings Paliperidone (Paliperidone Er 6 Mg Tab.Er.24) 6 mg PO DAILY [facility] Last Admin: 05/17/21 11:10 Dose: 6 mg Documented by: Paliperidone Palmitate (Paliperidone Palmitate 156 Mg/Ml Syringe) 156 mg IM ONCE ONE Stop: 05/21/21 09:01 Polyethylene Glycol (Polyethylene Glycol 3350 17 Gm Powd.Pack) 17 gm PO DAILY PRN PRN Reason: CONSTIPATION Senna (Sennosides 8.6 Mg Tablet) 17.2 mg PO BEDTIME [facility] Last Admin: 05/16/21 18:04 Dose: Not Given Documented by: Trazodone HCl (Trazodone Hcl 50 Mg Tablet) 50 mg PO BEDTIME PRN PRN Reason: Insomnia Allergies Allergies Allergy/AdvReac Type Severity Reaction Status Date / Time haloperidol [From HALDOL] Allergy Severe DYSTONIA Verified 04/19/21 06:28 ziprasidone [From GEODON] Allergy Severe DYSTONIA Verified 04/19/21 06:28 Assessment & Plan Assessment & Plan (1) Schizoaffective disorder, bipolar type: Status: Acute Code(s): F25.0 - Schizoaffective disorder, bipolar type Assessment and Plan: Continues with psychosis, aggressive agitation, lability of mood. Requiring restraint. Thorazine 50 mg tid with IM back up as needed Thorazine 100 mg bid prn with IM back up as needed. Initially, pt and I discussed an Abilify Maintena trial to address symptoms. From observation of pt's intensity of psychosis, agitation, lability, this does not appear to be the best agent to meet this level of symptom intensity. Will discuss with pt an Invega trial with transition to Sustenna during his hospitalization with initiation. 05/07/21 Invega 6 mg 05/08. Continue Thorazine prn. (pt required IM back up on 05/07/21) 05/08/21 Continue current plan of care. 05/09/21: Ct w plan per [facility] order 05/10/21: Ct Rx plan 05/11/21: Continue Invega titration. 05/12/21 Pt tolerating Invega. Will begin Sustenna on 05/13. 05/13/21 Sustanna given, tolerated. Support, educate, integrate into milieu for added support. 05/14/21 Tolerating Sustenna. Calmer, more focused today. Asking for help with legal issues, attempting to o rganize his responsibilities 05/15/21 Continue current plan. 05/16/21 Continue current plan 05/16/21 Continue current plan I spent minutes with the patient and/or on the patient floor today, greater than?50% of which was spent counseling/coordinating care. Patient educated on: medication risk/benefits, therapeutic strategies and other Informed Consent: further education needed Reason for contiued inpatient stay Substantial Risk for: harm to self, harm to others, inability to function and rapid decompensation
[2021-05-17 20:46] VITALS: BP 131/62; PULSE 92; RESP 17; TEMP 37.4; O2SAT 97
--- NOTE | 2021-05-18 07:24 | PC.NURSE ---
Addendum entered by Mehreen Neff RN 05/18/21 07:48: Antionette from [employer] came up to assist. Security was also called. Pt was quiet rest of shift. Original Note: Asif was up all of the night, agitated, pacing, yelling out. He wanted use of cell phone for music, when denied, he asked if he could take a shower. While that was allowed, he seemed still quite agitated and began screaming out to get out of my head and shut up . He was also irritated by the person doing 5 minute checks on him and screamed at him to get the fuck out of my room . This typewriter mechanic called [employer] for assistance. Antionette came up and assisted
[2021-05-18] MEDS: Paliperidone ER 6 MG TAB.ER.24 PO (08:35)
[2021-05-18 09:54] LABS: COVID-19 Test Negative (Negative)
[2021-05-18] MEDS: Mineral Oil/Petrolatum,White 106 GM Tube 1 APPL TOPICAL ×2 (11:19→22:09)
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
[2021-05-18 20:40] VITALS: BP 120/70; PULSE 94; TEMP 36.7
[2021-05-19 06:00] VITALS: BP 119/66; PULSE 90; RESP 18; TEMP 36.6; O2SAT 99
[2021-05-19] MEDS: Paliperidone ER 6 MG TAB.ER.24 PO (09:47)
[2021-05-19 16:59] VITALS: BP 115/64; PULSE 92; TEMP 36.9; O2SAT 98
--- NOTE | 2021-05-19 18:25 | HO.PSYCHPN ---
Subjective Subjective Date of Service: 05/19/21 Reason For Visit: Schizophrenia Subjective Notes: Section 8 Interim History: Pt experiencing breakthrough agitation during the evening night. Depakote ER 500 mg hs ordered. Pt continues to request discharge. Discussed with pt the need to complete treatment, stabilize, attend to legal issues and begin to re-establish his life. Medication Compliance: Yes Side effects from medications: No Attending Groups: No Review of Systems Acute medical concerns: No Medical Review of Systems: unchanged Review of Systems Reports behavioral changes, Reports confusion and Reports memory loss Psychiatric: Reports anxiety, Reports behavioral changes, Reports confusion, Reports depression, Reports difficulty concentrating, Reports auditory hallucinations, Reports irritability, Reports anhedonia, Reports memory loss, Reports mood swings, Reports paranoia, Reports visual hallucinations, Reports hallucinations and Reports homicidal ideation Mental Status Exam Mental Status Exam Patient Appearance: Appropriate Patient Orientation: Person, Place, Time and Situation Level of Consciousness: Alert Patient Behavior: Guarded, Talkative, Cooperative and Good Eye Contact Mood Description: Apprehensive Affect Description: Constricted Patient Cognition Impaired: Yes Ability to Follow Directions: Good Speech Pattern: Spontaneous Speech Memory Description: Remote Impaired and Episodic Impaired Hallucinations: Auditory Delusions: Paranoid Ideation and Grandiose Perceptual Disturbances: Derealization Thought Process: Distracted Thought Content: positive for Circumstantial, positive for Tangential and positive for Suicidal Ideation (denies) Depressive Symptoms: Increased Anxiety Judgement: Poor Diagnostics Vital Signs (24Hr): Vital Signs - 24 hr 05/18/21 20:40 05/19/21 06:00 05/19/21 16:59 Temperature 98.0 F 97.8 F 98.5 F Pulse Rate 94 90 92 Respiratory Rate 18 Blood Pressure 120/70 119/66 115/64 Pulse Oximetry 99 98 BMI result Body Mass Index 25.7 Labs Results: 04/21/21 07:08 05/13/21 11:23 Labs: Laboratory Results - last 48 hr 05/18/21 09:18 COVID-19 ([facility]) Negative COVID-19 Clin Com See Note Imaging Radiology Impressions: ITS Impressions Face X-Ray 04/21/21 15:29 IMPRESSION: No fracture seen. Orbit X-Ray 04/21/21 15:29 IMPRESSION: No fracture seen. Cervical Spine CT 04/24/21 22:24 IMPRESSION: No evidence of acute intracranial abnormalities. No evidence of acute maxillofacial fractures. However, evaluation of the inferior mandibular body is limited due to motion and although no definite fractures or surrounding soft tissue thickening/hematoma are identified, clinical correlation for pain/tenderness in the inferior mandible should be obtained as this is suboptimally assessed in this study. No acute cervical fractures or malalignment. Face CT 04/24/21 22:24 IMPRESSION: No evidence of acute intracranial abnormalities. No evidence of acute maxillofacial fractures. However, evaluation of the inferior mandibular body is limited due to motion and although no definite fractures or surrounding soft tissue thickening/hematoma are identified, clinical correlation for pain/tenderness in the inferior mandible should be obtained as this is suboptimally assessed in this study. No acute cervical fractures or malalignment. Head CT 04/24/21 22:24 IMPRESSION: No evidence of acute intracranial abnormalities. No evidence of acute maxillofacial fractures. However, evaluation of the inferior mandibular body is limited due to motion and although no definite fractures or surrounding soft tissue thickening/hematoma are identified, clinical correlation for pain/tenderness in the inferior mandible should be obtained as this is suboptimally assessed in this study. No acute cervical fractures or malalignment. Medications Medications Current Medications Acetaminophen (Acetaminophen 325 Mg Tablet) 650 mg PO Q6H PRN PRN Reason: Headache/Pain Mild Scale (1-3) Al Hydroxide/Mg Hydroxide (Magnesium Hydrox/Alum Hydrox 30 Ml Oral.Susp) 30 ml PO Q6H PRN PRN Reason: Heartburn/Nausea Benztropine Mesylate (Benztropine Mesylate 1 Mg Tablet) 1 mg PO TID PRN PRN Reason: Extrapyramidal Effects Chlorpromazine HCl (Chlorpromazine Hcl 100 Mg Tablet) 100 mg PO BID PRN PRN Reason: psychotic agitation Diphenhydramine HCl (Diphenhydramine Hcl 25 Mg Tablet) 50 mg PO Q4H PRN PRN Reason: agitation Last Admin: 04/28/21 20:42 Dose: 50 mg Documented by: Hydroxyzine HCl (Hydroxyzine Hcl 25 Mg Tablet) 25 mg PO QID PRN PRN Reason: Anxiety Lorazepam (Lorazepam 1 Mg Tablet) 2 mg PO Q4H PRN PRN Reason: agitation Last Admin: 05/06/21 05:49 Dose: 2 mg Documented by: Magnesium Hydroxide (Milk Of Magnesia 30 Ml Oral.Susp) 30 ml PO DAILY PRN PRN Reason: Constipation Multi-Ingred Cream/Lotion/Oil/Oint (Mineral Oil/Petrolatum,White 106 Gm Tube) 1 appl TOPICAL TID [facility]; Protocol Last Admin: 05/19/21 15:12 Dose: Not Given Documented by: Nicotine (Nicotine 21 Mg Patch.Td24) 21 mg TRANSDERMA DAILY PRN PRN Reason: smoking cessation Nicotine Polacrilex (Nicotine Polacrilex 2 Mg Gum) 4 mg BUCCAL Q2H PRN PRN Reason: Nicotine Cravings Paliperidone (Paliperidone Er 6 Mg Tab.Er.24) 6 mg PO DAILY [facility] Last Admin: 05/19/21 09:47 Dose: 6 mg Documented by: Paliperidone Palmitate (Paliperidone Palmitate 156 Mg/Ml Syringe) 156 mg IM ONCE ONE Stop: 05/21/21 09:01 Polyethylene Glycol (Polyethylene Glycol 3350 17 Gm Powd.Pack) 17 gm PO DAILY PRN PRN Reason: CONSTIPATION Senna (Sennosides 8.6 Mg Tablet) 17.2 mg PO BEDTIME [facility] Last Admin: 05/18/21 22:10 Dose: Not Given Documented by: Trazodone HCl (Trazodone Hcl 50 Mg Tablet) 50 mg PO BEDTIME PRN PRN Reason: Insomnia Allergies Allergies Allergy/AdvReac Type Severity Reaction Status Date / Time haloperidol [From HALDOL] Allergy Severe DYSTONIA Verified 04/19/21 06:28 ziprasidone [From GEODON] Allergy Severe DYSTONIA Verified 04/19/21 06:28 Assessment & Plan Assessment & Plan (1) Schizoaffective disorder, bipolar type: Status: Acute Code(s): F25.0 - Schizoaffective disorder, bipolar type Assessment and Plan: Continues with psychosis, aggressive agitation, lability of mood. Requiring restraint. Thorazine 50 mg tid with IM back up as needed Thorazine 100 mg bid prn with IM back up as needed. Initially, pt and I discussed an Abilify Maintena trial to address symptoms. From observation of pt's intensity of psychosis, agitation, lability, this does not appear to be the best agent to meet this level of symptom intensity. Will discuss with pt an Invega trial with transition to Sustenna during his hospitalization with initiation. 05/07/21 Invega 6 mg 05/08. Continue Thorazine prn. (pt required IM back up on 05/07/21) 05/08/21 Continue current plan of care. 05/09/21: Ct w plan per [facility] order 05/10/21: Ct Rx plan 05/11/21: Continue Invega titration. 05/12/21 Pt tolerating Invega. Will begin Sustenna on 05/13. 05/13/21 Sustanna given, tolerated. Support, educate, integrate into milieu for added support. 05/14/21 Tolerating Sustenna. Calmer, more focused today. Asking for help with legal issues, attempting to organize his responsibilities 05/15/21 Continue current plan. 05/16/21 Continue current plan 05/17/21 Continue current plan 05/18/21 Follow up with probation-pt agrees and signed JEANNETTE Second Sustenna injection 05/21. Tolerating with breakthrough sx with PO as well. 05/19/21 Team/Peers report evening/night agitation Depakote 500 mg ER HS I spent minutes with the patient and/or on the patient floor today, greater than?50% of which was spent counseling/coordinating care. Patient educated on: therapeutic strategies Informed Consent: does not understand Reason for contiued inpatient stay Substantial Risk for: harm to self, harm to others, inability to function and rapid decompensation
[2021-05-20 06:00] VITALS: BP 121/61; PULSE 82; RESP 18; TEMP 36.6; O2SAT 99
[2021-05-20] MEDS: Paliperidone ER 6 MG TAB.ER.24 PO (08:15)
--- NOTE | 2021-05-20 17:38 | HO.PSYCHPN ---
Subjective Subjective Date of Service: 05/20/21 Reason For Visit: Schizophrenia Subjective Notes: Section 8 Healthcare Proxy: No Guardianship: No Medical Problems Affecting Mental Status: No Interim History: I have an illness, don't I.? Do you want me to ask you about discharge every day, or should I assume I am staying for a while.? Met with pt at 1640. Self-dialoguing in his room with lights out. Re-orients as soon as one speaks his name and engages immediately. Reflective and apologetic, asking if we thought less of him for previous outbursts-attempted to re-assure. Aware that he will receive his injection on 05/21 and accepting of this. Discussed his worry about legal issues, not being able to have a half-way relationship, his relationship with his mother and will this be a curse to his relationships with other women throughout his life. Responds to reassurance. Medication Compliance: Yes Side effects from medications: No Attending Groups: Intermittent Review of Systems Acute medical concerns: No Medical Review of Systems: unchanged Review of Systems Reports behavioral changes, Reports confusion and Reports memory loss Psychiatric: Reports anxiety, Reports behavioral changes, Reports confusion, Reports depression, Reports difficulty concentrating, Reports auditory hallucinations, Reports irritability, Reports anhedonia, Reports memory loss, Reports mood swings, Reports paranoia, Reports visual hallucinations, Reports hallucinations and Reports homicidal ideation Mental Status Exam Mental Status Exam Patient Appearance: Appropriate Patient Orientation: Person, Place, Time and Situation Level of Consciousness: Alert Patient Behavior: Guarded, Talkative, Cooperative and Good Eye Contact Mood Description: Apprehensive Affect Description: Constricted Patient Cognition Impaired: Yes Ability to Follow Directions: Good Speech Pattern: Spontaneous Speech Memory Description: Remote Impaired and Episodic Impaired Hallucinations: Auditory Delusions: Paranoid Ideation and Grandiose Perceptual Disturbances: Derealization Thought Process: Distracted Thought Content: positive for Circumstantial, positive for Tangential and positive for Suicidal Ideation (denies) Depressive Symptoms: Increased Anxiety Judgement: Poor Diagnostics Vital Signs (24Hr): Vital Signs - 24 hr 05/20/21 06:00 Temperature 97.8 F Pulse Rate 82 Respiratory Rate 18 Blood Pressure 121/61 Pulse Oximetry 99 BMI result Body Mass Index 25.7 Labs Results: 04/21/21 07:08 05/13/21 11:23 Imaging Radiology Impressions: ITS Impressions Face X-Ray 04/21/21 15:29 IMPRESSION: No fracture seen. Orbit X-Ray 04/21/21 15:29 IMPRESSION: No fracture seen. Cervical Spine CT 04/24/21 22:24 IMPRESSION: No evidence of acute intracranial abnormalities. No evidence of acute maxillofacial fractures. However, evaluation of the inferior mandibular body is limited due to motion and although no definite fractures or surrounding soft tissue thickening/hematoma are identified, clinical correlation for pain/tenderness in the inferior mandible should be obtained as this is suboptimally assessed in this study. No acute cervical fractures or malalignment. Face CT 04/24/21 22:24 IMPRESSION: No evidence of acute intracranial abnormalities. No evidence of acute maxillofacial fractures. However, evaluation of the inferior mandibular body is limited due to motion and although no definite fractures or surrounding soft tissue thickening/hematoma are identified, clinical correlation for pain/tenderness in the inferior mandible should be obtained as this is suboptimally assessed in this study. No acute cervical fractures or malalignment. Head CT 04/24/21 22:24 IMPRESSION: No evidence of acute intracranial abnormalities. No evidence of acute maxillofacial fractures. However, evaluation of the inferior mandibular body is limited due to motion and although no definite fractures or surrounding soft tissue thickening/hematoma are identified, clinical correlation for pain/tenderness in the inferior mandible should be obtained as this is suboptimally assessed in this study. No acute cervical fractures or malalignment. Medications Medications Current Medications Acetaminophen (Acetaminophen 325 Mg Tablet) 650 mg PO Q6H PRN PRN Reason: Headache/Pain Mild Scale (1-3) Al Hydroxide/Mg Hydroxide (Magnesium Hydrox/Alum Hydrox 30 Ml Oral.Susp) 30 ml PO Q6H PRN PRN Reason: Heartburn/Nausea Benztropine Mesylate (Benztropine Mesylate 1 Mg Tablet) 1 mg PO TID PRN PRN Reason: Extrapyramidal Effects Chlorpromazine HCl (Chlorpromazine Hcl 100 Mg Tablet) 100 mg PO BID PRN PRN Reason: psychotic agitation Diphenhydramine HCl (Diphenhydramine Hcl 25 Mg Tablet) 50 mg PO Q4H PRN PRN Reason: agitation Last Admin: 04/28/21 20:42 Dose: 50 mg Documented by: Divalproex Sodium (Divalproex Sodium Er 500 Mg Tab.Er.24h) 500 mg PO BEDTIME [facility] Last Admin: 05/19/21 22:36 Dose: Not Given Documented by: Hydroxyzine HCl (Hydroxyzine Hcl 25 Mg Tablet) 25 mg PO QID PRN PRN Reason: Anxiety Lorazepam (Lorazepam 1 Mg Tablet) 2 mg PO Q4H PRN PRN Reason: agitation Last Admin: 05/06/21 05:49 Dose: 2 mg Documented by: Magnesium Hydroxide (Milk Of Magnesia 30 Ml Oral.Susp) 30 ml PO DAILY PRN PRN Reason: Constipation Multi-Ingred Cream/Lotion/Oil/Oint (Mineral Oil/Petrolatum,White 106 Gm Tube) 1 appl TOPICAL TID [facility]; Protocol Last Admin: 05/20/21 13:28 Dose: Not Given Documented by: Nicotine (Nicotine 21 Mg Patch.Td24) 21 mg TRANSDERMA DAILY PRN PRN Reason: smoking cessation Nicotine Polacrilex (Nicotine Polacrilex 2 Mg Gum) 4 mg BUCCAL Q2H PRN PRN Reason: Nicotine Cravings Paliperidone (Paliperidone Er 6 Mg Tab.Er.24) 6 mg PO DAILY [facility] Last Admin: 05/20/21 08:15 Dose: 6 mg Documented by: Paliperidone Palmitate (Paliperidone Palmitate 156 Mg/Ml Syringe) 156 mg IM ONCE ONE Stop: 05/21/21 09:01 Polyethylene Glycol (Polyethylene Glycol 3350 17 Gm Powd.Pack) 17 gm PO DAILY PRN PRN Reason: CONSTIPATION Senna (Sennosides 8.6 Mg Tablet) 17.2 mg PO BEDTIME [facility] Last Admin: 05/19/21 22:33 Dose: Not Given Documented by: Trazodone HCl (Trazodone Hcl 50 Mg Tablet) 50 mg PO BEDTIME PRN PRN Reason: Insomnia Allergies Allergies Allergy/AdvReac Type Severity Reaction Status Date / Time haloperidol [From HALDOL] Allergy Severe DYSTONIA Verified 04/19/21 06:28 ziprasidone [From GEODON] Allergy Severe DYSTONIA Verified 04/19/21 06:28 Assessment & Plan Assessment & Plan (1) Schizoaffective disorder, bipolar type: Status: Acute Code(s): F25.0 - Schizoaffective disorder, bipolar type Assessment and Plan: Continues with psychosis, aggressive agitation, lability of mood. Requiring restraint. Thorazine 50 mg tid with IM back up as needed Thorazine 100 mg bid prn with IM back up as needed. Initially, pt and I discussed an Abilify Maintena trial to address symptoms. From observation of pt's intensity of psychosis, agitation, lability, this does not appear to be the best agent to meet this level of symptom intensity. Will discuss with pt an Invega trial with transition to Sustenna during his hospitalization with initiation. 05/07/21 Invega 6 mg 05/08. Continue Thorazine prn. (pt required IM back up on 05/07/21) 05/08/21 Continue current plan of care. 05/09/21: Ct w plan per [facility] order 05/10/21: Ct Rx plan 05/11/21: Continue Invega titration. 05/12/21 Pt tolerating Invega. Will begin Sustenna on 05/13. 05/13/21 Sustanna given, tolerated. Support, educate, integrate into milieu for added support. 05/14/21 Tolerating Sustenna. Calmer, more focused today. Asking for help with legal issues, attempting to organize his responsibilities 05/15/21 Continue current plan. 05/16/21 Continue current plan 05/17/21 Continue current plan 05/18/21 Follow up with probation-pt agrees and signed JEANNETTE Second Sustenna injection 05/21. Tolerating with breakthrough sx with PO as well. 05/19/21 Team/Peers report evening/night agitation Depakote 500 mg ER HS 05/20/21 Continue current regime Scheduled Invega injection for 05/21 Continue to attempt alliance building, education, support I spent minutes with the patient and/or on the patient floor today, greater than?50% of which was spent counseling/coordinating care. Patient educated on: medication risk/benefits, therapeutic strategies and other Informed Consent: further education needed Reason for contiued inpatient stay Substantial Risk for: harm to self, harm to others, inability to function and rapid decompensation
[2021-05-20 19:50] VITALS: BP 120/72; PULSE 83; RESP 20; TEMP 36.8; O2SAT 100
[2021-05-21 06:00] VITALS: BP 102/66; PULSE 75; RESP 18; TEMP 36.4; O2SAT 99
[2021-05-21] MEDS: Paliperidone ER 6 MG TAB.ER.24 PO (08:34)
[2021-05-21] MEDS: Paliperidone Palmitate 156 MG/ML SYRINGE IM (08:55)
[2021-05-21 11:29] VITALS: BMI 26.4
--- NOTE | 2021-05-21 13:20 | P.PNPSI_ITS ---
Subjective Subjective Date of Service: 05/21/21 Reason For Visit: Schizophrenia Interim History: I evaluated the pt this morning and upon interview he reports he is doing good. Says his sleep is pretty good, took a nap earlier. Says he cant wait for discharge. Received his second invega injection today, says he learned invega means in belonging, which he thinks is really weird but cool. Feels sore, denies headache, appetite is good. Reports benefit on invega, I think im stable with it, says its going terrific with it, adherent with invega PO and COKER but does not want to take depakote. Agrees there has been a big difference on invega. Denies depression, says he is feeling safe.? Review of Systems Acute medical concerns: No Medical Review of Systems: unchanged Mental Status Exam Mental Status Exam Narrative: Patient Appearance:?Appropriate Patient Orientation:?Person, Place, Time and Situation Level of Consciousness:?Alert Patient Behavior:?Guarded, Talkative, Cooperative and Good Eye Contact Mood Description:?Apprehensive Affect Description:?Constricted Patient Cognition Impaired:?Yes Ability to Follow Directions:?Good Speech Pattern:?Spontaneous Speech Memory Description:?Remote Impaired and Episodic Impaired Hallucinations:?Auditory Delusions:?Paranoid Ideation and Grandiose Perceptual Disturbances:?Derealization Thought Process:?Distracted Thought Content:?positive for Circumstantial, positive for Tangential and positive for Suicidal Ideation (denies) Depressive Symptoms:?Increased Anxiety Judgment:?Poor Diagnostics Vital Signs (24Hr): Vital Signs - 24 hr 05/20/21 19:50 05/21/21 06:00 Temperature 98.2 F 97.5 F Pulse Rate 83 75 Respiratory Rate 20 18 Blood Pressure 120/72 102/66 Pulse Oximetry 100 99 BMI result Body Mass Index 26.4 Labs Results: 04/21/21 07:08 05/13/21 11:23 Imaging Radiology Impressions: ITS Impressions Face X-Ray 04/21/21 15:29 IMPRESSION: No fracture seen. Orbit X-Ray 04/21/21 15:29 IMPRESSION: No fracture seen. Cervical Spine CT 04/24/21 22:24 IMPRESSION: No evidence of acute intracranial abnormalities. No evidence of acute maxillofacial fractures. However, evaluation of the inferior mandibular body is limited due to motion and although no definite fractures or surrounding soft tissue thickening/hematoma are identified, clinical correlation for pain/tenderness in the inferior mandible should be obtained as this is suboptimally assessed in this study. No acute cervical fractures or malalignment. Face CT 04/24/21 22:24 IMPRESSION: No evidence of acute intracranial abnormalities. No evidence of acute maxillofacial fractures. However, evaluation of the inferior mandibular body is limited due to motion and although no definite fractures or surrounding soft tissue thickening/hematoma are identified, clinical correlation for pain/tenderness in the inferior mandible should be obtained as this is suboptimally assessed in this study. No acute cervical fractures or malalignment. Head CT 04/24/21 22:24 IMPRESSION: No evidence of acute intracranial abnormalities. No evidence of acute maxillofacial fractures. However, evaluation of the inferior mandibular body is limited due to motion and although no definite fractures or surrounding soft tissue thickening/hematoma are identified, clinical correlation for pain/tenderness in the inferior mandible should be obtained as this is suboptimally assessed in this study. No acute cervical fractures or malalignment. Medications Medications Current Medications Acetaminophen (Acetaminophen 325 Mg Tablet) 650 mg PO Q6H PRN PRN Reason: Headache/Pain Mild Scale (1-3) Al Hydroxide/Mg Hydroxide (Magnesium Hydrox/Alum Hydrox 30 Ml Oral.Susp) 30 ml PO Q6H PRN PRN Reason: Heartburn/Nausea Benztropine Mesylate (Benztropine Mesylate 1 Mg Tablet) 1 mg PO TID PRN PRN Reason: Extrapyramidal Effects Chlorpromazine HCl (Chlorpromazine Hcl 100 Mg Tablet) 100 mg PO BID PRN PRN Reason: psychotic agitation Diphenhydramine HCl (Diphenhydramine Hcl 25 Mg Tablet) 50 mg PO Q4H PRN PRN Reason: agitation Last Admin: 04/28/21 20:42 Dose: 50 mg Documented by: Divalproex Sodium (Divalproex Sodium Er 500 Mg Tab.Er.24h) 500 mg PO BEDTIME MARGAUX Last Admin: 05/20/21 19:51 Dose: Not Given Documented by: Hydroxyzine HCl (Hydroxyzine Hcl 25 Mg Tablet) 25 mg PO QID PRN PRN Reason: Anxiety Lorazepam (Lorazepam 1 Mg Tablet) 2 mg PO Q4H PRN PRN Reason: agitation Last Admin: 05/06/21 05:49 Dose: 2 mg Documented by: Magnesium Hydroxide (Milk Of Magnesia 30 Ml Oral.Susp) 30 ml PO DAILY PRN PRN Reason: Constipation Multi-Ingred Cream/Lotion/Oil/Oint (Mineral Oil/Petrolatum,White 106 Gm Tube) 1 appl TOPICAL TID MARGAUX; Protocol Last Admin: 05/21/21 08:36 Dose: Not Given Documented by: Nicotine (Nicotine 21 Mg Patch.Td24) 21 mg TRANSDERMA DAILY PRN PRN Reason: smoking cessation Nicotine Polacrilex (Nicotine Polacrilex 2 Mg Gum) 4 mg BUCCAL Q2H PRN PRN Reason: Nicotine Cravings Paliperidone (Paliperidone Er 6 Mg Tab.Er.24) 6 mg PO DAILY MARGAUX Last Admin: 05/21/21 08:34 Dose: 6 mg Documented by: Polyethylene Glycol (Polyethylene Glycol 3350 17 Gm Powd.Pack) 17 gm PO DAILY PRN PRN Reason: CONSTIPATION Senna (Sennosides 8.6 Mg Tablet) 17.2 mg PO BEDTIME MARGAUX Last Admin: 05/20/21 19:51 Dose: Not Given Documented by: Trazodone HCl (Trazodone Hcl 50 Mg Tablet) 50 mg PO BEDTIME PRN PRN Reason: Insomnia Allergies Allergies Allergy/AdvReac Type Severity Reaction Status Date / Time haloperidol [From HALDOL] Allergy Severe DYSTONIA Verified 04/19/21 06:28 ziprasidone [From GEODON] Allergy Severe DYSTONIA Verified 04/19/21 06:28 Assessment & Plan Assessment & Plan (1) Schizoaffective disorder, bipolar type: Status: Acute Code(s): F25.0 - Schizoaffective disorder, bipolar type Assessment and Plan: Continues with psychosis, aggressive agitation, lability of mood. Requiring restraint. Thorazine 50 mg tid with IM back up as needed Thorazine 100 mg bid prn with IM back up as needed. Initially, pt and I discussed an Abilify Maintena trial to address symptoms. From observation of pt's intensity of psychosis, agitation, lability, this does not appear to be the best agent to meet this level of symptom intensity. Will discuss with pt an Invega trial with transition to Sustenna during his hospitalization with initiation. 05/07/21 Invega 6 mg 05/08. Continue Thorazine prn. (pt required IM back up on 05/07/21) 05/08/21 Continue current plan of care. 05/09/21: Ct w plan per [facility] order 05/10/21: Ct Rx plan 05/11/21: Continue Invega titration. 05/12/21 Pt tolerating Invega. Will begin Sustenna on 05/13. 05/13/21 Sustanna given, tolerated. Support, educate, integrate into milieu for added support. 05/14/21 Tolerating Sustenna. Calmer, more focused today. Asking for help with legal issues, attempting to organize his responsibilities 05/15/21 Continue current plan. 05/16/21 Continue current plan 05/17/21 Continue current plan 05/18/21 Follow up with probation-pt agrees and signed JEANNETTE Second Sustenna injection 05/21. Tolerating with breakthrough sx with PO as we ll. 05/19/21 Team/Peers report evening/night agitation Depakote 500 mg ER HS 05/20/21 Continue current regime Scheduled Invega injection for 05/21 Continue to attempt alliance building, education, support 05/21/21 Continue current regimen, no changes to medication, will monitor for benefit on invega sustenna COKER. Still taking PO invega. Has not been taking PO depakote, so will not order a level. I spent minutes with the patient and/or on the patient floor today, greater than?50% of which was spent counseling/coordinating care. Reason for contiued inpatient stay Substantial Risk for: inability to function, rapid decompensation and med/psych decompensation
[2021-05-21 19:04] VITALS: BP 126/71; PULSE 83; RESP 16; TEMP 37.1; O2SAT 100
[2021-05-21] MEDS: hydrOXYzine HCL 25 MG TABLET PO (21:14)
[2021-05-21] MEDS: Acetaminophen 325 MG TABLET 650 MG PO (21:14)
[2021-05-22] MEDS: diphenhydrAMINE HCL 25 MG TABLET 50 MG PO (00:07)
[2021-05-22] MEDS: Ibuprofen 600 MG TABLET PO ×2 (00:09→07:13)
[2021-05-22] MEDS: Paliperidone ER 6 MG TAB.ER.24 PO (09:07)
--- NOTE | 2021-05-22 11:03 | P.PNPSI_ITS ---
Subjective Subjective Date of Service: 05/22/21 Reason For Visit: Schizophrenia Interim History: Patient seen and discussed with team. Patient evaluated this morning and upon interview he reports he is now experiencing pain and soreness at injection site from second invega sustenna shot. Says he utilized PRN tylenol and advil as well as vistaril, feels groggy. Discusses having vivid dreams, but says after not having dreams for some time this was pleasant for him. Discussed continuing with oral dose of invega until COKER reaches steady state. Pt says he wants to be free from the hos pital. Denies SI/SIB/HI. Says he feels safe. Denies hallucinations. Denies paranoia. Sleep was much better last night. Mood is calm and quiet. Medication Compliance: Yes Side effects from medications: No Attending Groups: Yes Review of Systems Acute medical concerns: No Medical Review of Systems: unchanged Mental Status Exam Mental Status Exam Narrative: Patient Appearance:?Appropriate Patient Orientation:?Person, Place, Time and Situation Level of Consciousness:?Alert Patient Behavior:?Guarded, Talkative, Cooperative and Good Eye Contact Mood Description:?Apprehensive Affect Description:?Constricted Patient Cognition Impaired:?Yes Ability to Follow Directions:?Good Speech Pattern:?Spontaneous Speech Memory Description:?Remote Impaired and Episodic Impaired Hallucinations:?Auditory Delusions:?Paranoid Ideation and Grandiose Perceptual Disturbances:?Derealization Thought Process:?Distracted Thought Content:?positive for Circumstantial, positive for Tangential and positive for Suicidal Ideation (denies) Depressive Symptoms:?Increased Anxiety Judgment:?Poor Diagnostics Vital Signs (24Hr): Vital Signs - 24 hr 05/24/21 18:00 05/25/21 06:00 Temperature 98 F 97.4 F Pulse Rate 84 87 Respiratory Rate 16 18 Blood Pressure 128/82 120/70 Pulse Oximetry 98 BMI result Body Mass Index 26.4 Labs Results: 04/21/21 07:08 05/13/21 11:23 Imaging Radiology Impressions: ITS Impressions Face X-Ray 04/21/21 15:29 IMPRESSION: No fracture seen. Orbit X-Ray 04/21/21 15:29 IMPRESSION: No fracture seen. Cervical Spine CT 04/24/21 22:24 IMPRESSION: No evidence of acute intracranial abnormalities. No evidence of acute maxillofacial fractures. However, evaluation of the inferior mandibular body is limited due to motion and although no definite fractures or surrounding soft tissue thickening/hematoma are identified, clinical correlation for pain/tenderness in the inferior mandible should be obtained as this is suboptimally assessed in this study. No acute cervical fractures or malalignment. Face CT 04/24/21 22:24 IMPRESSION: No evidence of acute intracranial abnormalities. No evidence of acute maxillofacial fractures. However, evaluation of the inferior mandibular body is limited due to motion and although no definite fractures or surrounding soft tissue thickening/hematoma are identified, clinical correlation for pain/tenderness in the inferior mandible should be obtained as this is suboptimally assessed in this study. No acute cervical fractures or malalignment. Head CT 04/24/21 22:24 IMPRESSION: No evidence of acute intracranial abnormalities. No evidence of acute maxillofacial fractures. However, evaluation of the inferior mandibular body is limited due to motion and although no definite fractures or surrounding soft tissue thickening/hematoma are identified, clinical correlation for pain/tenderness in the inferior mandible should be obtained as this is suboptimally assessed in this study. No acute cervical fractures or malalignment. Medications Medications Current Medications Acetaminophen (Acetaminophen 325 Mg Tablet) 650 mg PO Q6H PRN PRN Reason: Headache/Pain Mild Scale (1-3) Last Admin: 05/21/21 21:14 Dose: 650 mg Documented by: Al Hydroxide/Mg Hydroxide (Magnesium Hydrox/Alum Hydrox 30 Ml Oral.Susp) 30 ml PO Q6H PRN PRN Reason: Heartburn/Nausea Benztropine Mesylate (Benztropine Mesylate 1 Mg Tablet) 1 mg PO TID PRN PRN Reason: Extrapyramidal Effects Chlorpromazine HCl (Chlorpromazine Hcl 100 Mg Tablet) 100 mg PO BID PRN PRN Reason: psychotic agitation Diphenhydramine HCl (Diphenhydramine Hcl 25 Mg Tablet) 50 mg PO Q4H PRN PRN Reason: agitation Last Admin: 05/22/21 00:07 Dose: 50 mg Documented by: Divalproex Sodium (Divalproex Sodium Er 500 Mg Tab.Er.24h) 500 mg PO BEDTIME MARGAUX Last Admin: 05/24/21 21:00 Dose: Not Given Documented by: Hydroxyzine HCl (Hydroxyzine Hcl 25 Mg Tablet) 25 mg PO QID PRN PRN Reason: Anxiety Last Admin: 05/21/21 21:14 Dose: 25 mg Documented by: Ibuprofen (Ibuprofen 600 Mg Tablet) 600 mg PO Q4H PRN PRN Reason: Pain, Moderate (Pain Scale 4-6 Last Admin: 05/22/21 07:13 Dose: 600 mg Documented by: Lorazepam (Lorazepam 1 Mg Tablet) 2 mg PO Q4H PRN PRN Reason: agitation Last Admin: 05/06/21 05:49 Dose: 2 mg Documented by: Magnesium Hydroxide (Milk Of Magnesia 30 Ml Oral.Susp) 30 ml PO DAILY PRN PRN Reason: Constipation Multi-Ingred Cream/Lotion/Oil/Oint (Mineral Oil/Petrolatum,White 106 Gm Tube) 1 appl TOPICAL TID MARGAUX; Protocol Last Admin: 05/25/21 07:46 Dose: Not Given Documented by: Nicotine (Nicotine 21 Mg Patch.Td24) 21 mg TRANSDERMA DAILY PRN PRN Reason: smoking cessation Nicotine Polacrilex (Nicotine Polacrilex 2 Mg Gum) 4 mg BUCCAL Q2H PRN PRN Reason: Nicotine Cravings Paliperidone (Paliperidone Er 6 Mg Tab.Er.24) 6 mg PO DAILY [facility] Last Admin: 05/25/21 08:37 Dose: 6 mg Documented by: Polyethylene Glycol (Polyethylene Glycol 3350 17 Gm Powd.Pack) 17 gm PO DAILY PRN PRN Reason: CONSTIPATION Senna (Sennosides 8.6 Mg Tablet) 17.2 mg PO BEDTIME [facility] Last Admin: 05/24/21 21:00 Dose: Not Given Documented by: Trazodone HCl (Trazodone Hcl 50 Mg Tablet) 50 mg PO BEDTIME PRN PRN Reason: Insomnia Allergies Allergies Allergy/AdvReac Type Severity Reaction Status Date / Time haloperidol [From HALDOL] Allergy Severe DYSTONIA Verified 04/19/21 06:28 ziprasidone [From GEODON] Allergy Severe DYSTONIA Verified 04/19/21 06:28 Assessment & Plan Assessment & Plan (1) Schizoaffective disorder, bipolar type: Status: Acute Code(s): F25.0 - Schizoaffective disorder, bipolar type Assessment and Plan: Continues with psychosis, aggressive agitation, lability of mood. Requiring restraint. Thorazine 50 mg tid with IM back up as needed Thorazine 100 mg bid prn with IM back up as needed. Initially, pt and I discussed an Suman Purvis trial to address symptoms. From observation of pt's intensity of psychosis, agitation, lability, this does not appear to be the best agent to meet this level of symptom intensity. Will discuss with pt an Invega trial with transition to Sustenna during his hospitalization with initiation. 05/07/21 Invega 6 mg 05/08. Continue Thorazine prn. (pt required IM back up on 05/07/21) 05/08/21 Continue current plan of care. 05/09/21: Ct w plan per [facility] order 05/10/21: Ct Rx plan 05/11/21: Continue Invega titration. 05/12/21 Pt tolerating Invega. Will begin Sustenna on 05/13. 05/13/21 Sustanna given, tolerated. Support, educate, integrate into milieu for added support. 05/14/21 Tolerating Sustenna. Calmer, more focused today. Asking for help with legal issues, attempting to organize his responsibilities 05/15/21 Continue current plan. 05/16/21 Continue current plan 05/17/21 Continue current plan 05/18/21 Follow up with probation-pt agrees and signed JAENNETTE Second Sustenna injection 05/21. Tolerating with breakthrough sx with PO as well. 05/19/21 Team/Peers report evening/night agitation Depakote 500 mg ER HS 05/20/21 Continue current regime Scheduled Invega injection for 05/21 Continue to attempt alliance building, education, support 05/21/21 Continue current regimen, no changes to medication, will monitor for benefit on invega sustenna COKER. Still taking PO invega. Has not been taking PO depakote, so will not order a level. 05/22/21 Continue current regimen, pt is tolerating invega sustenna well. Not taking depakote. Appropriate on the unit. I spent minutes with the patient and/or on the patient floor today, greater than?50% of which was spent counseling/coordinating care. Reason for contiued inpatient stay Substantial Risk for: inability to function, rapid decompensation and med/psych decompensation
[2021-05-23] MEDS: Paliperidone ER 6 MG TAB.ER.24 PO (08:23)
[2021-05-23 08:58] VITALS: BP 109/56; PULSE 94; RESP 18; TEMP 36.4; O2SAT 97
--- NOTE | 2021-05-23 11:07 | P.PNPSI_ITS ---
Subjective Subjective Date of Service: 05/23/21 Reason For Visit: Schizophrenia Interim History: Patient seen and discussed with team. Patient evaluated this morning and upon interview he reports he wants to be able to listen to music with staff later on, talked about jany, his tattoos. Says the injection site is feeling much better, only notices a little bit of soreness. Feels pretty good on medication. Talks about his interest in gardening and painting, spiritual beliefs. Has been trying to do more art. In the milieu, patient is safe and appropriate in behavior, somewhat intrusive with wanting to high five staff but redirectable. Denies SI/SIB/HI upon inquiry. Denies irritability or assaultive ideation. Says he feels safe. Medication Compliance: Yes Side effects from medications: No Attending Groups: Yes Review of Systems Acute medical concerns: No Medical Review of Systems: unchanged Mental Status Exam Mental Status Exam Narrative: Patient Appearance:?Appropriate Patient Orientation:?Person, Place, Time and Situation Level of Consciousness:?Alert Patient Behavior:?Guarded, Talkative, Cooperative and Good Eye Contact Mood Description:?Apprehensive Affect Description:?Constricted Patient Cognition Impaired:?Yes Ability to Follow Directions:?Good Speech Pattern:?Spontaneous Speech Memory Description:?Remote Impaired and Episodic Impaired Hallucinations:?Auditory Delusions:?Paranoid Ideation and Grandiose Perceptual Disturbances:?Derealization Thought Process:?Distracted Thought Content:?positive for Circumstantial, positive for Tangential and positive for Suicidal Ideation (denies) Depressive Symptoms:?Increased Anxiety Judgment:?Poor Diagnostics Vital Signs (24Hr): Vital Signs - 24 hr 05/24/21 18:00 05/25/21 06:00 Temperature 98 F 97.4 F Pulse Rate 84 87 Respiratory Rate 16 18 Blood Pressure 128/82 120/70 Pulse Oximetry 98 BMI result Body Mass Index 26.4 Labs Results: 04/21/21 07:08 05/13/21 11:23 Imaging Radiology Impressions: ITS Impressions Face X-Ray 04/21/21 15:29 IMPRESSION: No fracture seen. Orbit X-Ray 04/21/21 15:29 IMPRESSION: No fracture seen. Cervical Spine CT 04/24/21 22:24 IMPRESSION: No evidence of acute intracranial abnormalities. No evidence of acute maxillofacial fractures. However, evaluation of the inferior mandibular body is limited due to motion and although no definite fractures or surrounding soft tissue thickening/hematoma are identified, clinical correlation for pain/tenderness in the inferior mandible should be obtained as this is suboptimally assessed in this study. No acute cervical fractures or malalignment. Face CT 04/24/21 22:24 IMPRESSION: No evidence of acute intracranial abnormalities. No evidence of acute maxillofacial fractures. However, evaluation of the inferior mandibular body is limited due to motion and although no definite fractures or surrounding soft tissue thickening/hematoma are identified, clinical correlation for pain/tenderness in the inferior mandible should be obtained as this is suboptimally assessed in this study. No acute cervical fractures or malalignment. Head CT 04/24/21 22:24 IMPRESSION: No evidence of acute intracranial abnormalities. No evidence of acute maxillofacial fractures. However, evaluation of the inferior mandibular body is limited due to motion and although no definite fractures or surrounding soft tissue thickening/hematoma are identified, clinical correlation for pain/tenderness in the inferior mandible should be obtained as this is suboptimally assessed in this study. No acute cervical fractures or malalignment. Medications Medications Current Medications Acetaminophen (Acetaminophen 325 Mg Tablet) 650 mg PO Q6H PRN PRN Reason: Headache/Pain Mild Scale (1-3) Last Admin: 05/21/21 21:14 Dose: 650 mg Documented by: Al Hydroxide/Mg Hydroxide (Magnesium Hydrox/Alum Hydrox 30 Ml Oral.Susp) 30 ml PO Q6H PRN PRN Reason: Heartburn/Nausea Benztropine Mesylate (Benztropine Mesylate 1 Mg Tablet) 1 mg PO TID PRN PRN Reason: Extrapyramidal Effects Chlorpromazine HCl (Chlorpromazine Hcl 100 Mg Tablet) 100 mg PO BID PRN PRN Reason: psychotic agitation Diphenhydramine HCl (Diphenhydramine Hcl 25 Mg Tablet) 50 mg PO Q4H PRN PRN Reason: agitation Last Admin: 05/22/21 00:07 Dose: 50 mg Documented by: Divalproex Sodium (Divalproex Sodium Er 500 Mg Tab.Er.24h) 500 mg PO BEDTIME MARGAUX Last Admin: 05/24/21 21:00 Dose: Not Given Documented by: Hydroxyzine HCl (Hydroxyzine Hcl 25 Mg Tablet) 25 mg PO QID PRN PRN Reason: Anxiety Last Admin: 05/21/21 21:14 Dose: 25 mg Documented by: Ibuprofen (Ibuprofen 600 Mg Tablet) 600 mg PO Q4H PRN PRN Reason: Pain, Moderate (Pain Scale 4-6 Last Admin: 05/22/21 07:13 Dose: 600 mg Documented by: Lorazepam (Lorazepam 1 Mg Tablet) 2 mg PO Q4H PRN PRN Reason: agitation Last Admin: 05/06/21 05:49 Dose: 2 mg Documented by: Magnesium Hydroxide (Milk Of Magnesia 30 Ml Oral.Susp) 30 ml PO DAILY PRN PRN Reason: Constipation Multi-Ingred Cream/Lotion/Oil/Oint (Mineral Oil/Petrolatum,White 106 Gm Tube) 1 appl TOPICAL TID MARGAUX; Protocol Last Admin: 05/25/21 07:46 Dose: Not Given Documented by: Nicotine (Nicotine 21 Mg Patch.Td24) 21 mg TRANSDERMA DAILY PRN PRN Reason: smoking cessation Nicotine Polacrilex (Nicotine Polacrilex 2 Mg Gum) 4 mg BUCCAL Q2H PRN PRN Reason: Nicotine Cravings Paliperidone (Paliperidone Er 6 Mg Tab.Er.24) 6 mg PO DAILY [facility] Last Admin: 05/25/21 08:37 Dose: 6 mg Documented by: Polyethylene Glycol (Polyethylene Glycol 3350 17 Gm Powd.Pack) 17 gm PO DAILY PRN PRN Reason: CONSTIPATION Senna (Sennosides 8.6 Mg Tablet) 17.2 mg PO BEDTIME MARGAUX Last Admin: 05/24/21 21:00 Dose: Not Given Documented by: Trazodone HCl (Trazodone Hcl 50 Mg Tablet) 50 mg PO BEDTIME PRN PRN Reason: Insomnia Allergies Allergies Allergy/AdvReac Type Severity Reaction Status Date / Time haloperidol [From HALDOL] Allergy Severe DYSTONIA Verified 04/19/21 06:28 ziprasidone [From GEODON] Allergy Severe DYSTONIA Verified 04/19/21 06:28 Assessment & Plan Assessment & Plan (1) Schizoaffective disorder, bipolar type: Status: Acute Code(s): F25.0 - Schizoaffective disorder, bipolar type Assessment and Plan: Continues with psychosis, aggressive agitation, lability of mood. Requiring restraint. Thorazine 50 mg tid with IM back up as needed Thorazine 100 mg bid prn with IM back up as needed. Initially, pt and I discussed an Abilify Maintena trial to address symptoms. From observation of pt's intensity of psychosis, agitation, lability, this does not appear to be the best agent to meet this level of symptom intensity. Will discuss with pt an Invega trial with transition to Sustenna during his hospitalization with initiation. 05/07/21 Invega 6 mg 05/08. Continue Thorazine prn. (pt required IM back up on 05/07/21) 05/08/21 Continue current plan of care. 05/09/21: Ct w plan per [facility] order 05/10/21: Ct Rx plan 05/11/21: Continue Invega titration. 05/12/21 Pt tolerating Invega. Will begin Sustenna on 05/13. 05/13/21 Sustanna given, tolerated. Support, educate, integrate into milieu for added support. 05/14/21 Tolerating Sustenna. Calmer, more focused today. Asking for help with legal issues, attempting to organize his responsibilities 05/15/21 Continue current plan. 05/16/21 Continue current plan 05/17/21 Continue current plan 05/18/21 Follow up with probation-pt agrees and signed JEANNETTE Second Sustenna injection 05/21. Tolerating with breakthrough sx with PO as well. 05/19/21 Team/Peers report evening/night agitation Depakote 500 mg ER HS 05/20/21 Continue current regime Scheduled Invega injection for 05/21 Continue to attempt alliance building, education, support 05/21/21 Continue current regimen, no changes to medication, will monitor for benefit on invega sustenna COKER. Still taking PO invega. Has not been taking PO depakote, so will not order a level. 05/22/21 Continue current regimen, pt is tolerating invega sustenna well. Not taking depakote. Appropriate on the unit. 05/23/21: No changes to above med plan. I spent minutes with the patient and/or on the patient floor today, greater than?50% of which was spent counseling/coordinating care. Reason for contiued inpatient stay Substantial Risk for: inability to function, rapid decompensation and med/psych decompensation
[2021-05-23 22:30] VITALS: BP 125/65; PULSE 87; TEMP 36.9
[2021-05-24 06:00] VITALS: BP 118/65; PULSE 97; RESP 17; TEMP 36.8; O2SAT 98
[2021-05-24] MEDS: Paliperidone ER 6 MG TAB.ER.24 PO (08:51)
--- NOTE | 2021-05-24 15:10 | P.PNPSI_ITS ---
Subjective Subjective Date of Service: 05/24/21 Reason For Visit: Schizophrenia Interim History: Patient seen and discussed with team. Patient evaluated this morning and upon interview he says he is? doing well, im okay. Says his sleep is pretty good. Still having good dreams, showed me his drawing. Says he is focused on discharge. In the milieu, patient is safe and appropriate in behavior. Denies SI/SIB/HI upon inquiry. Denies irritability or assaultive ideation. Says he feels safe. Medication Compliance: Yes Side effects from medications: No Attending Groups: Yes Mental Status Exam Mental Status Exam Narrative: Patient Appearance:?Appropriate Patient Orientation:?Person, Place, Time and Situation Level of Consciousness:?Alert Patient Behavior:?Guarded, Talkative, Cooperative and Good Eye Contact Mood Description:?Apprehensive Affect Description:?Constricted Patient Cognition Impaired:?Yes Ability to Follow Directions:?Good Speech Pattern:?Spontaneous Speech Memory Description:?Remote Impaired and Episodic Impaired Hallucinations:?Auditory Delusions:?Paranoid Ideation and Grandiose Perceptual Disturbances:?Derealization Thought Process:?Distracted Thought Content:?positive for Circumstantial, positive for Tangential and positive for Suicidal Ideation (denies) Depressive Symptoms:?Increased Anxiety Judgment:?Poor Diagnostics Vital Signs (24Hr): Vital Signs - 24 hr 05/24/21 18:00 05/25/21 06:00 Temperature 98 F 97.4 F Pulse Rate 84 87 Respiratory Rate 16 18 Blood Pressure 128/82 120/70 Pulse Oximetry 98 BMI result Body Mass Index 26.4 Labs Results: 04/21/21 07:08 05/13/21 11:23 Imaging Radiology Impressions: ITS Impressions Face X-Ray 04/21/21 15:29 IMPRESSION: No fracture seen. Orbit X-Ray 04/21/21 15:29 IMPRESSION: No fracture seen. Cervical Spine CT 04/24/21 22:24 IMPRESSION: No evidence of acute intracranial abnormalities. No evidence of acute maxillofacial fractures. However, evaluation of the inferior mandibular body is limited due to motion and although no definite fractures or surrounding soft tissue thickening/hematoma are identified, clinical correlation for pain/tenderness in the inferior mandible should be obtained as this is suboptimally assessed in this study. No acute cervical fractures or malalignment. Face CT 04/24/21 22:24 IMPRESSION: No evidence of acute intracranial abnormalities. No evidence of acute maxillofacial fractures. However, evaluation of the inferior mandibular body is limited due to motion and although no definite fractures or surrounding soft tissue thickening/hematoma are identified, clinical correlation for pain/tenderness in the inferior mandible should be obtained as this is suboptimally assessed in this study. No acute cervical fractures or malalignment. Head CT 04/24/21 22:24 IMPRESSION: No evidence of acute intracranial abnormalities. No evidence of acute maxillofacial fractures. However, evaluation of the inferior mandibular body is limited due to motion and although no definite fractures or surrounding soft tissue thickening/hematoma are identified, clinical correlation for pain/tenderness in the inferior mandible should be obtained as this is suboptimally assessed in this study. No acute cervical fractures or malalignment. Medications Medications Current Medications Acetaminophen (Acetaminophen 325 Mg Tablet) 650 mg PO Q6H PRN PRN Reason: Headache/Pain Mild Scale (1-3) Last Admin: 05/21/21 21:14 Dose: 650 mg Documented by: Al Hydroxide/Mg Hydroxide (Magnesium Hydrox/Alum Hydrox 30 Ml Oral.Susp) 30 ml PO Q6H PRN PRN Reason: Heartburn/Nausea Benztropine Mesylate (Benztropine Mesylate 1 Mg Tablet) 1 mg PO TID PRN PRN Reason: Extrapyramidal Effects Chlorpromazine HCl (Chlorpromazine Hcl 100 Mg Tablet) 100 mg PO BID PRN PRN Reason: psychotic agitation Diphenhydramine HCl (Diphenhydramine Hcl 25 Mg Tablet) 50 mg PO Q4H PRN PRN Reason: agitation Last Admin: 05/22/21 00:07 Dose: 50 mg Documented by: Divalproex Sodium (Divalproex Sodium Er 500 Mg Tab.Er.24h) 500 mg PO BEDTIME MARGAUX Last Admin: 05/24/21 21:00 Dose: Not Given Documented by: Hydroxyzine HCl (Hydroxyzine Hcl 25 Mg Tablet) 25 mg PO QID PRN PRN Reason: Anxiety Last Admin: 05/21/21 21:14 Dose: 25 mg Documented by: Ibuprofen (Ibuprofen 600 Mg Tablet) 600 mg PO Q4H PRN PRN Reason: Pain, Moderate (Pain Scale 4-6 Last Admin: 05/22/21 07:13 Dose: 600 mg Documented by: Lorazepam (Lorazepam 1 Mg Tablet) 2 mg PO Q4H PRN PRN Reason: agitation Last Admin: 05/06/21 05:49 Dose: 2 mg Documented by: Magnesium Hydroxide (Milk Of Magnesia 30 Ml Oral.Susp) 30 ml PO DAILY PRN PRN Reason: Constipation Multi-Ingred Cream/Lotion/Oil/Oint (Mineral Oil/Petrolatum,White 106 Gm Tube) 1 appl TOPICAL TID MARGAUX; Protocol Last Admin: 05/25/21 07:46 Dose: Not Given Documented by: Nicotine (Nicotine 21 Mg Patch.Td24) 21 mg TRANSDERMA DAILY PRN PRN Reason: smoking cessation Nicotine Polacrilex (Nicotine Polacrilex 2 Mg Gum) 4 mg BUCCAL Q2H PRN PRN Reason: Nicotine Cravings Paliperidone (Paliperidone Er 6 Mg Tab.Er.24) 6 mg PO DAILY MARGAUX Last Admin: 05/25/21 08:37 Dose: 6 mg Documented by: Polyethylene Glycol (Polyethylene Glycol 3350 17 Gm Powd.Pack) 17 gm PO DAILY PRN PRN Reason: CONSTIPATION Senna (Sennosides 8.6 Mg Tablet) 17.2 mg PO BEDTIME MARGAUX Last Admin: 05/24/21 21:00 Dose: Not Given Documented by: Trazodone HCl (Trazodone Hcl 50 Mg Tablet) 50 mg PO BEDTIME PRN PRN Reason: Insomnia Allergies Allergies Allergy/AdvReac Type Severity Reaction Status Date / Time haloperidol [From HALDOL] Allergy Severe DYSTONIA Verified 04/19/21 06:28 ziprasidone [From GEODON] Allergy Severe DYSTONIA Verified 04/19/21 06:28 Assessment & Plan Assessment & Plan (1) Schizoaffective disorder, bipolar type: Status: Acute Code(s): F25.0 - Schizoaffective disorder, bipolar type Assessment and Plan: Continues with psychosis, aggressive agitation, lability of mood. Requiring restraint. Thorazine 50 mg tid with IM back up as needed Thorazine 100 mg bid prn with IM back up as needed. Initially, pt and I discussed an Abilify Maintena trial to address symptoms. From observation of pt's intensity of psychosis, agitation, lability, this does not appear to be the best agent to meet this level of symptom intensity. Will discuss with pt an Invega trial with transition to Sustenna during his hospitalization with initiation. 05/07/21 Invega 6 mg 05/08. Continue Thorazine prn. (pt required IM back up on 05/07/21) 05/08/21 Continue current plan of care. 05/09/21: Ct w plan per [facility] order 05/10/21: Ct Rx plan 05/11/21: Continue Invega titration. 05/12/21 Pt tolerating Invega. Will begin Sustenna on 05/13. 05/13/21 Sustanna given, tolerated. Support, educate, integrate into milieu for added support. 05/14/21 Tolerating Sustenna. Calmer, more focused today. Asking for help with legal issues, attempting to organize his responsibilities 05/15/21 Continue current plan. 05/16/21 Continue current plan 05/17/21 Continue current plan 05/18/21 Follow up with probation-pt agrees and signed JEANNETTE Second Sustenna injection 05/21. Tolerating with breakthrough sx with PO as well. 05/19/21 Team/Peers report evening/night agitation Depakote 500 mg ER HS 05/20/21 Continue current regime Scheduled Invega injection for 05/21 Continue to attempt alliance building, education, support 05/21/21 Continue current regimen, no changes to medication, will monitor for benefit on invega sustenna COKER. Still taking PO invega. Has not been taking PO depakote, so will not order a level. 05/22/21 Continue current regimen, pt is tolerating invega sustenna well. Not taking depakote. Appropriate on the unit. 05/23/21: No changes to above med plan. 05/24/21: No changes to above plan, continue PO invega until invega sustenna reaches steady state. Pt somewhat intrusive with high fiving staff but redirectable. I spent minutes with the patient and/or on the patient floor today, gr eater than?50% of which was spent counseling/coordinating care. Reason for contiued inpatient stay Substantial Risk for: inability to function, rapid decompensation and med/psych decompensation
[2021-05-24 18:00] VITALS: BP 128/82; PULSE 84; RESP 16; TEMP 36.6
[2021-05-25 06:00] VITALS: BP 120/70; PULSE 87; RESP 18; TEMP 36.3; O2SAT 98
[2021-05-25] MEDS: Paliperidone ER 6 MG TAB.ER.24 PO (08:37)
--- NOTE | 2021-05-25 13:24 | P.PNPSI_ITS ---
Subjective Subjective Date of Service: 05/25/21 Reason For Visit: Schizophrenia Subjective Notes: Section 8 Interim History: Pt attended housing court today via Zoom. Reports he was evicted-asks for assistance with referrals-would prefer [place]. Reports he has resolved current conflict with mom and they are communicating-she will assist him with gathering and moving his belongings from his apartment. Pt asks about transfer to [facility] because my girlfriend is there and I want to be with her. Explained that intra-facility transfers are not done-he verbalized understanding of this. Reports medications are effective-cites some ED potential SE which we have asked him to monitor. He finds Sustenna preferable to Olanzapine as he feels energy and decrease in sedation. He is monitoring weight-currently has had a 5.5 lb gain approximately, however, he believes this keeps him still within a comfortable weight range. Discussed options regarding mgt-not wanting to take extra medicine, however, will keep in mind there are strategies we may implement should he choose this route if weight increases. Medication Compliance: Yes Side effects from medications: No Attending Groups: Intermittent Review of Systems Acute medical concerns: No Medical Review of Systems: unchanged Review of Systems Reports behavioral changes Psychiatric: Reports abnormal sleep pattern, Reports anxiety, Reports behavioral changes, Reports auditory hallucinations and Reports visual hallucinations Mental Status Exam Mental Status Exam Patient Appearance: Appropriate Patient Orientation: Person, Place, Time and Situation Level of Consciousness: Alert Patient Behavior: Appropriate, Talkative and Good Eye Contact Mood Description: Anxious Affect Description: Anxious Patient Cognition Impaired: Yes Ability to Follow Directions: Good Speech Pattern: Spontaneous Speech Memory Description: Episodic Impaired Hallucinations: Auditory and Visual Delusions: Paranoid Ideation Thought Process: Distracted Thought Content: positive for [place], positive for Circumstantial, positive for Goal Oriented and positive for Tangential Depressive Symptoms: Increased Anxiety Abnormal Motor Activity Signs and Symptoms: Restlessness Judgement: Poor Diagnostics Vital Signs (24Hr): Vital Signs - 24 hr 05/24/21 18:00 05/25/21 06:00 Temperature 98 F 97.4 F Pulse Rate 84 87 Respiratory Rate 16 18 Blood Pressure 128/82 120/70 Pulse Oximetry 98 BMI result Body Mass Index 26.4 Labs Results: 04/21/21 07:08 05/13/21 11:23 Imaging Radiology Impressions: ITS Impressions Face X-Ray 04/21/21 15:29 IMPRESSION: No fracture seen. Orbit X-Ray 04/21/21 15:29 IMPRESSION: No fracture seen. Cervical Spine CT 04/24/21 22:24 IMPRESSION: No evidence of acute intracranial abnormalities. No evidence of acute maxillofacial fractures. However, evaluation of the inferior mandibular body is limited due to motion and although no definite fractures or surrounding soft tissue thickening/hematoma are identified, clinical correlation for pain/tenderness in the inferior mandible should be obtained as this is suboptimally assessed in this study. No acute cervical fractures or malalignment. Face CT 04/24/21 22:24 IMPRESSION: No evidence of acute intracranial abnormalities. No evidence of acute maxillofacial fractures. However, evaluation of the inferior mandibular body is limited due to motion and although no definite fractures or surrounding soft tissue thickening/hematoma are identified, clinical correlation for pain/tenderness in the inferior mandible should be obtained as this is suboptimally assessed in this study. No acute cervical fractures or malalignment. Head CT 04/24/21 22:24 IMPRESSION: No evidence of acute intracranial abnormalities. No evidence of acute maxillofacial fractures. However, evaluation of the inferior mandibular body is limited due to motion and although no definite fractures or surrounding soft tissue thickening/hematoma are identified, clinical correlation for pain/tenderness in the inferior mandible should be obtained as this is suboptimally assessed in this study. No acute cervical fractures or malalignment. Medications Medications Current Medications Acetaminophen (Acetaminophen 325 Mg Tablet) 650 mg PO Q6H PRN PRN Reason: Headache/Pain Mild Scale (1-3) Last Admin: 05/21/21 21:14 Dose: 650 mg Documented by: Al Hydroxide/Mg Hydroxide (Magnesium Hydrox/Alum Hydrox 30 Ml Oral.Susp) 30 ml PO Q6H PRN PRN Reason: Heartburn/Nausea Benztropine Mesylate (Benztropine Mesylate 1 Mg Tablet) 1 mg PO TID PRN PRN Reason: Extrapyramidal Effects Chlorpromazine HCl (Chlorpromazine Hcl 100 Mg Tablet) 100 mg PO BID PRN PRN Reason: psychotic agitation Diphenhydramine HCl (Diphenhydramine Hcl 25 Mg Tablet) 50 mg PO Q4H PRN PRN Reason: agitation Last Admin: 05/22/21 00:07 Dose: 50 mg Documented by: Divalproex Sodium (Divalproex Sodium Er 500 Mg Tab.Er.24h) 500 mg PO BEDTIME [facility] Last Admin: 05/24/21 21:00 Dose: Not Given Documented by: Hydroxyzine HCl (Hydroxyzine Hcl 25 Mg Tablet) 25 mg PO QID PRN PRN Reason: Anxiety Last Admin: 05/21/21 21:14 Dose: 25 mg Documented by: Ibuprofen (Ibuprofen 600 Mg Tablet) 600 mg PO Q4H PRN PRN Reason: Pain, Moderate (Pain Scale 4-6 Last Admin: 05/22/21 07:13 Dose: 600 mg Documented by: Lorazepam (Lorazepam 1 Mg Tablet) 2 mg PO Q4H PRN PRN Reason: agitation Last Admin: 05/06/21 05:49 Dose: 2 mg Documented by: Magnesium Hydroxide (Milk Of Magnesia 30 Ml Oral.Susp) 30 ml PO DAILY PRN PRN Reason: Constipation Multi-Ingred Cream/Lotion/Oil/Oint (Mineral Oil/Petrolatum,White 106 Gm Tube) 1 appl TOPICAL TID [facility]; Protocol Last Admin: 05/25/21 07:46 Dose: Not Given Documented by: Nicotine (Nicotine 21 Mg Patch.Td24) 21 mg TRANSDERMA DAILY PRN PRN Reason: smoking cessation Nicotine Polacrilex (Nicotine Polacrilex 2 Mg Gum) 4 mg BUCCAL Q2H PRN PRN Reason: Nicotine Cravings Paliperidone (Paliperidone Er 6 Mg Tab.Er.24) 6 mg PO DAILY [facility] Last Admin: 05/25/21 08:37 Dose: 6 mg Documented by: Polyethylene Glycol (Polyethylene Glycol 3350 17 Gm Powd.Pack) 17 gm PO DAILY PRN PRN Reason: CONSTIPATION Senna (Sennosides 8.6 Mg Tablet) 17.2 mg PO BEDTIME [facility] Last Admin: 05/24/21 21:00 Dose: Not Given Documented by: Trazodone HCl (Trazodone Hcl 50 Mg Tablet) 50 mg PO BEDTIME PRN PRN Reason: Insomnia Allergies Allergies Allergy/AdvReac Type Severity Reaction Status Date / Time haloperidol [From HALDOL] Allergy Severe DYSTONIA Verified 04/19/21 06:28 ziprasidone [From GEODON] Allergy Severe DYSTONIA Verified 04/19/21 06:28 Assessment & Plan Assessment & Plan (1) Schizoaffective disorder, bipolar type: Status: Acute Code(s): F25.0 - Schizoaffective disorder, bipolar type Assessment and Plan: Continues with psychosis, aggressive agitation, lability of mood. Requiring restraint. Thorazine 50 mg tid with IM back up as needed Thorazine 100 mg bid prn with IM back up as needed. Initially, pt and I discussed an Abilify Maintena trial to address symptoms. From observation of pt's intensity of psychosis, agitation, lability, this does not appear to be the best agent to meet this level of symptom intensity. Will discuss with pt an Invega trial with transition to Sustenna during his hospitalization with initiation. 05/07/21 Invega 6 mg 05/08. Continue Thorazine prn. (pt required IM back up on 05/07/21) 05/08/21 Continue current plan of care. 05/09/21: Ct w plan per New order 05/10/21: Ct Rx plan 05/11/21: Continue Invega titration. 05/12/21 Pt tolerating Invega. Will begin Sustenna on 05/13. 05/13/21 Sustanna given, tolerated. Support, educate, integrate into milieu for added support. 05/14/21 Tolerating Sustenna. Calmer, more focused today. Asking for help with legal issues, attempting to organize his responsibilities 05/15/21 Continue current plan. 05/16/21 Continue current plan 05/17/21 Continue current plan 05/18/21 Follow up with probation-pt agrees and signed JEANNETTE Second Sustenna injection 05/21. Tolerating with breakthrough sx with PO as wel l. 05/19/21 Team/Peers report evening/night agitation Depakote 500 mg ER HS 05/20/21 Continue current regime Scheduled Invega injection for 05/21 Continue to attempt alliance building, education, support 05/21/21 Continue current regimen, no changes to medication, will monitor for benefit on invega sustenna COKER. Still taking PO invega. Has not been taking PO depakote, so will not order a level. 05/22/21 Continue current regimen, pt is tolerating invega sustenna well. Not taking depakote. Appropriate on the unit. 05/23/21: No changes to above med plan. 05/24/21: No changes to above plan, continue PO invega until invega sustenna reaches steady state. Pt somewhat intrusive with high fiving staff but redirectable. 05/25/21 Pt will need housing. Will discuss with team, consult with family, ?[facility] application. I spent 25 minutes with the patient and/or on the patient floor today, greater than?50% of which was spent counseling/coordinating care. Patient educated on: medication risk/benefits and therapeutic strategies Informed Consent: further education needed Reason for contiued inpatient stay Substantial Risk for: harm to self, harm to others, inability to function and rapid decompensation
[2021-05-25 21:35] VITALS: BP 113/56; PULSE 89; TEMP 36.7; O2SAT 98
[2021-05-26 06:00] VITALS: BP 134/71; PULSE 83; RESP 18; TEMP 36.6; O2SAT 97
[2021-05-26] MEDS: Paliperidone ER 6 MG TAB.ER.24 PO (08:44)
--- NOTE | 2021-05-26 17:34 | P.PNPSI_ITS ---
Subjective Subjective Date of Service: 05/26/21 Reason For Visit: Schizophrenia Subjective Notes: Section 8 Interim History: Pt pleased to have mother drop off belongings, especially his switch which he has connected with a peer to play games with. Asks for [facility] refe rral as he would like training for a job, wanting to get a full rehab plan going so I can have success in life . 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 Will proceed with application. Pt denies medication SE at this time. Medication Compliance: Yes Side effects from medications: No Attending Groups: Intermittent Review of Systems Acute medical concerns: No Medical Review of Systems: unchanged Review of Systems Reports behavioral changes Psychiatric: Reports abnormal sleep pattern, Reports anxiety, Reports behavioral changes, Reports auditory hallucinations and Reports visual hallucinations Mental Status Exam Mental Status Exam Patient Appearance: Appropriate Patient Orientation: Person, Place, Time and Situation Level of Consciousness: Alert Patient Behavior: Appropriate, Talkative and Good Eye Contact Mood Description: Anxious Affect Description: Anxious Patient Cognition Impaired: Yes Ability to Follow Directions: Good Speech Pattern: Spontaneous Speech Memory Description: Episodic Impaired Hallucinations: Auditory and Visual Delusions: Paranoid Ideation Thought Process: Distracted Thought Content: positive for [place], positive for Circumstantial, positive f or Goal Oriented and positive for Tangential Depressive Symptoms: Increased Anxiety Abnormal Motor Activity Signs and Symptoms: Restlessness Judgement: Poor Diagnostics Vital Signs (24Hr): Vital Signs - 24 hr 05/25/21 21:35 05/26/21 06:00 Temperature 98.1 F 97.8 F Pulse Rate 89 83 Respiratory Rate 18 Blood Pressure 113/56 L 134/71 Pulse Oximetry 98 97 BMI result Body Mass Index 26.4 Labs Results: 04/21/21 07:08 05/13/21 11:23 Imaging Radiology Impressions: ITS Impressions Face X-Ray 04/21/21 15:29 IMPRESSION: No fracture seen. Orbit X-Ray 04/21/21 15:29 IMPRESSION: No fracture seen. Cervical Spine CT 04/24/21 22:24 IMPRESSION: No evidence of acute intracranial abnormalities. No evidence of acute maxillofacial fractures. However, evaluation of the inferior mandibular body is limited due to motion and although no definite fractures or surrounding soft tissue thickening/hematoma are identified, clinical correlation for pain/tenderness in the inferior mandible should be obtained as this is suboptimally assessed in this study. No acute cervical fractures or malalignment. Face CT 04/24/21 22:24 IMPRESSION: No evidence of acute intracranial abnormalities. No evidence of acute maxillofacial fractures. However, evaluation of the inferior mandibular body is limited due to motion and although no definite fractures or surrounding soft tissue thickening/hematoma are identified, clinical correlation for pain/tenderness in the inferior mandible should be obtained as this is suboptimally assessed in this study. No acute cervical fractures or malalignment. Head CT 04/24/21 22:24 IMPRESSION: No evidence of acute intracranial abnormalities. No evidence of acute maxillofacial fractures. However, evaluation of the inferior mandibular body is limited due to motion and although no definite fractures or surrounding soft tissue thickening/hematoma are identified, clinical correlation for pain/tenderness in the inferior mandible should be obtained as this is suboptimally assessed in this study. No acute cervical fractures or malalignment. Medications Medications Current Medications Acetaminophen (Acetaminophen 325 Mg Tablet) 650 mg PO Q6H PRN PRN Reason: Headache/Pain Mild Scale (1-3) Last Admin: 05/21/21 21:14 Dose: 650 mg Documented by: Al Hydroxide/Mg Hydroxide (Magnesium Hydrox/Alum Hydrox 30 Ml Oral.Susp) 30 ml PO Q6H PRN PRN Reason: Heartburn/Nausea Benztropine Mesylate (Benztropine Mesylate 1 Mg Tablet) 1 mg PO TID PRN PRN Reason: Extrapyramidal Effects Chlorpromazine HCl (Chlorpromazine Hcl 100 Mg Tablet) 100 mg PO BID PRN PRN Reason: psychotic agitation Diphenhydramine HCl (Diphenhydramine Hcl 25 Mg Tablet) 50 mg PO Q4H PRN PRN Reason: agitation Last Admin: 05/22/21 00:07 Dose: 50 mg Documented by: Divalproex Sodium (Divalproex Sodium Er 500 Mg Tab.Er.24h) 500 mg PO BEDTIME [facility] Last Admin: 05/25/21 21:35 Dose: Not Given Documented by: Hydroxyzine HCl (Hydroxyzine Hcl 25 Mg Tablet) 25 mg PO QID PRN PRN Reason: Anxiety Last Admin: 05/21/21 21:14 Dose: 25 mg Documented by: Ibuprofen (Ibuprofen 600 Mg Tablet) 600 mg PO Q4H PRN PRN Reason: Pain, Moderate (Pain Scale 4-6 Last Admin: 05/22/21 07:13 Dose: 600 mg Documented by: Magnesium Hydroxide (Milk Of Magnesia 30 Ml Oral.Susp) 30 ml PO DAILY PRN PRN Reason: Constipation Multi-Ingred Cream/Lotion/Oil/Oint (Mineral Oil/Petrolatum,White 106 Gm Tube) 1 appl TOPICAL TID [facility]; Protocol Last Admin: 05/26/21 16:25 Dose: Not Given Documented by: Nicotine (Nicotine 21 Mg Patch.Td24) 21 mg TRANSDERMA DAILY PRN PRN Reason: smoking cessation Nicotine Polacrilex (Nicotine Polacrilex 2 Mg Gum) 4 mg BUCCAL Q2H PRN PRN Reason: Nicotine Cravings Paliperidone (Paliperidone Er 6 Mg Tab.Er.24) 6 mg PO DAILY [facility] Last Admin: 05/26/21 08:44 Dose: 6 mg Documented by: Polyethylene Glycol (Polyethylene Glycol 3350 17 Gm Powd.Pack) 17 gm PO DAILY PRN PRN Reason: CONSTIPATION Senna (Sennosides 8.6 Mg Tablet) 17.2 mg PO BEDTIME [facility] Last Admin: 05/25/21 21:37 Dose: Not Given Documented by: Trazodone HCl (Trazodone Hcl 50 Mg Tablet) 50 mg PO BEDTIME PRN PRN Reason: Insomnia Allergies Allergies Allergy/AdvReac Type Severity Reaction Status Date / Time haloperidol [From HALDOL] Allergy Severe DYSTONIA Verified 04/19/21 06:28 ziprasidone [From GEODON] Allergy Severe DYSTONIA Verified 04/19/21 06:28 Assessment & Plan Assessment & Plan (1) Schizoaffective disorder, bipolar type: Status: Acute Code(s): F25.0 - Schizoaffective disorder, bipolar type Assessment and Plan: Continues with psychosis, aggressive agitation, lability of mood. Requiring restraint. Thorazine 50 mg tid with IM back up as needed Thorazine 100 mg bid prn with IM back up as needed. Initially, pt and I discussed an Abilify Maintena trial to address symptoms. From observation of pt's intensity of psychosis, agitation, lability, this does not appear to be the best agent to meet this level of symptom intensity. Will discuss with pt an Invega trial with transition to Sustenna during his hospitalization with initiation. 05/07/21 Invega 6 mg 05/08. Continue Thorazine prn. (pt required IM back up on 05/07/21) 05/08/21 Continue current plan of care. 05/09/21: Ct w plan per [facility] order 05/10/21: Ct Rx plan 05/11/21: Continue Invega titration. 05/12/21 Pt tolerating Invega. Will begin Sustenna on 05/13. 05/13/21 Sustanna given, tolerated. Support, educate, integrate into milieu for added support. 05/14/21 Tolerating Sustenna. Calmer, more focused today. Asking for help with legal issues, attempting to organize his responsibilities 05/15/21 Continue current plan. 05/16/21 Continue current plan 05/17/21 Continue current plan 05/18/21 Follow up with probation-pt agrees and signed JEANNETTE Second Sustenna injection 05/21. Tolerating with breakthrough sx with PO as well. 05/19/21 Team/Peers report evening/night agitation Depakote 500 mg ER HS 05/20/21 Continue current regime Scheduled Invega injection for 05/21 Continue to attempt alliance building, education, support 05/21/21 Continue current regimen, no changes to medication, will monitor for benefit on invega sustenna [facility]. Still taking PO invega. Has not been taking PO depakote, so will not order a level. 05/22/21 Continue current regimen, pt is tolerating invega sustenna well. Not taking depakote. Appropriate on the unit. 05/23/21: No changes to above med plan. 05/24/21: No changes to above plan, continue PO invega until invega sustenna reaches steady state. Pt somewhat intrusive with high fiving staff but redirectable. 05/26/21: Continue current plan. [facility] application I spent minutes with the patient and/or on the patient floor today, greater than?50% of which was spent counseling/coordinating care. Patient educated on: therapeutic strategies Informed Consent: further education needed Reason for contiued inpatient stay Substantial Risk for: harm to self, harm to others, inability to function and rapid decompensation
[2021-05-26 18:00] VITALS: BP 116/72; PULSE 97; RESP 16; TEMP 36.3
[2021-05-27] MEDS: Magnesium Hydrox/Alum Hydrox 30 ML ORAL.SUSP PO (00:13)
[2021-05-27 06:00] VITALS: BP 108/62; PULSE 82; RESP 18; TEMP 36.6; O2SAT 100
[2021-05-27] MEDS: Paliperidone ER 6 MG TAB.ER.24 PO (08:56)
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
[2021-05-27 18:00] VITALS: BP 136/78; PULSE 99; RESP 20; TEMP 36.2; O2SAT 97
[2021-05-28] MEDS: Paliperidone ER 6 MG TAB.ER.24 PO (08:59)
--- NOTE | 2021-05-28 17:06 | P.PNPSI_ITS ---
Subjective Subjective Date of Service: 05/28/21 Reason For Visit: Schizophrenia Subjective Notes: Section 8 Healthcare Proxy: No Guardianship: No Medical Problems Affecting Mental Status: No Interim History: Alert, calmer, remains with delusions and confusion, decrease in lability. Asks for transfer to [facility] [place] as he believes his girlfriend Anya lives there and he wants to continue his relationship with her. Discussed the limitations of intrafacility transfers. Pt discussed [facility] and not having interest in going to this program. Discussed upcoming legal appointments and how this plan could be of significant assist as charges are serious. I can consider it then I guess. Medication Compliance: Yes Side effects from medications: No Attending Groups: No Review of Systems Acute medical concerns: No Medical Review of Systems: unchanged Review of Systems Reports behavioral changes Psychiatric: Reports abnormal sleep pattern, Reports behavioral changes, Reports difficulty concentrating, Reports auditory hallucinations, Reports irritability, Reports anhedonia, Reports mood swings and Reports paranoia Mental Status Exam Mental Status Exam Patient Appearance: Appropriate Patient Orientation: Person, Place, Time and Situation Level of Consciousness: Alert Patient Behavior: Appropriate, Talkative and Good Eye Contact Mood Description: Anxious Affect Description: Anxious Patient Cognition Impaired: Yes Ability to Follow Directions: Good Speech Pattern: Spontaneous Speech Memory Description: Episodic Impaired Hallucinations: Auditory and Visual Delusions: Paranoid Ideation Thought Process: Distracted Thought Content: positive for [place], positive for Circumstantial, positive for Goal Oriented and positive for Tangential Depressive Symptoms: Increased Anxiety Abnormal Motor Activity Signs and Symptoms: Restlessness Judgement: Poor Diagnostics Vital Signs (24Hr): Vital Signs - 24 hr 05/27/21 18:00 Temperature 97.2 F Pulse Rate 99 Respiratory Rate 20 Blood Pressure 136/78 Pulse Oximetry 97 BMI result Body Mass Index 26.4 Labs Results: 04/21/21 07:08 05/13/21 11:23 Imaging Radiology Impressions: ITS Impressions Face X-Ray 04/21/21 15:29 IMPRESSION: No fracture seen. Orbit X-Ray 04/21/21 15:29 IMPRESSION: No fracture seen. Cervical Spine CT 04/24/21 22:24 IMPRESSION: No evidence of acute intracranial abnormalities. No evidence of acute maxillofacial fractures. However, evaluation of the inferior mandibular body is limited due to motion and although no definite fractures or surrounding soft tissue thickening/hematoma are identified, clinical correlation for pain/tenderness in the inferior mandible should be obtained as this is suboptimally assessed in this study. No acute cervical fractures or malalignment. Face CT 04/24/21 22:24 IMPRESSION: No evidence of acute intracranial abnormalities. No evidence of acute maxillofacial fractures. However, evaluation of the inferior mandibular body is limited due to motion and although no definite fractures or surrounding soft tissue thickening/hematoma are identified, clinical correlation for pain/tenderness in the inferior mandible should be obtained as this is suboptimally assessed in this study. No acute cervical fractures or malalignment. Head CT 04/24/21 22:24 IMPRESSION: No evidence of acute intracranial abnormalities. No evidence of acute maxillofacial fractures. However, evaluation of the inferior mandibular body is limited due to motion and although no definite fractures or surrounding soft tissue thickening/hematoma are identified, clinical correlation for pain/tenderness in the inferior mandible should be obtained as this is suboptimally assessed in this study. No acute cervical fractures or malalignment. Medications Medications Current Medications Acetaminophen (Acetaminophen 325 Mg Tablet) 650 mg PO Q6H PRN PRN Reason: Headache/Pain Mild Scale (1-3) Last Admin: 05/21/21 21:14 Dose: 650 mg Documented by: Al Hydroxide/Mg Hydroxide (Magnesium Hydrox/Alum Hydrox 30 Ml Oral.Susp) 30 ml PO Q6H PRN PRN Reason: Heartburn/Nausea Last Admin: 05/27/21 00:13 Dose: 30 ml Documented by: Benztropine Mesylate (Benztropine Mesylate 1 Mg Tablet) 1 mg PO TID PRN PRN Reason: Extrapyramidal Effects Chlorpromazine HCl (Chlorpromazine Hcl 100 Mg Tablet) 100 mg PO BID PRN PRN Reason: psychotic agitation Chlorpromazine HCl (Chlorpromazine Hcl 50 Mg/2 Ml Ampul) 50 mg IM BEDTIME PRN PRN Reason: if refuses Depakote per court order Diphenhydramine HCl (Diphenhydramine Hcl 25 Mg Tablet) 50 mg PO Q4H PRN PRN Reason: agitation Last Admin: 05/22/21 00:07 Dose: 50 mg Documented by: Divalproex Sodium (Divalproex Sodium Er 500 Mg Tab.Er.24h) 500 mg PO BEDTIME [facility] Last Admin: 05/27/21 20:48 Dose: Not Given Documented by: Hydroxyzine HCl (Hydroxyzine Hcl 25 Mg Tablet) 25 mg PO QID PRN PRN Reason: Anxiety Last Admin: 05/21/21 21:14 Dose: 25 mg Documented by: Ibuprofen (Ibuprofen 600 Mg Tablet) 600 mg PO Q4H PRN PRN Reason: Pain, Moderate (Pain Scale 4-6 Last Admin: 05/22/21 07:13 Dose: 600 mg Documented by: Magnesium Hydroxide (Milk Of Magnesia 30 Ml Oral.Susp) 30 ml PO DAILY PRN PRN Reason: Constipation Multi-Ingred Cream/Lotion/Oil/Oint (Mineral Oil/Petrolatum,White 106 Gm Tube) 1 appl TOPICAL TID [facility]; Protocol Last Admin: 05/28/21 15:25 Dose: Not Given Documented by: Nicotine (Nicotine 21 Mg Patch.Td24) 21 mg TRANSDERMA DAILY PRN PRN Reason: smoking cessation Nicotine Polacrilex (Nicotine Polacrilex 2 Mg Gum) 4 mg BUCCAL Q2H PRN PRN Reason: Nicotine Cravings Paliperidone (Paliperidone Er 6 Mg Tab.Er.24) 6 mg PO DAILY [facility] Last Admin: 05/28/21 08:59 Dose: 6 mg Documented by: Polyethylene Glycol (Polyethylene Glycol 3350 17 Gm Powd.Pack) 17 gm PO DAILY PRN PRN Reason: CONSTIPATION Senna (Sennosides 8.6 Mg Tablet) 17.2 mg PO BEDTIME [facility] Last Admin: 05/27/21 20:48 Dose: Not Given Documented by: Trazodone HCl (Trazodone Hcl 50 Mg Tablet) 50 mg PO BEDTIME PRN PRN Reason: Insomnia Allergies Allergies Allergy/AdvReac Type Severity Reaction Status Date / Time haloperidol [From HALDOL] Allergy Severe DYSTONIA Verified 04/19/21 06:28 ziprasidone [From GEODON] Allergy Severe DYSTONIA Verified 04/19/21 06:28 Assessment & Plan Assessment & Plan (1) Schizoaffective disorder, bipolar type: Status: Acute Code(s): F25.0 - Schizoaffective disorder, bipolar type Assessment and Plan: Continues with psychosis, aggressive agitation, lability of mood. Requiring restraint. Thorazine 50 mg tid with IM back up as needed Thorazine 100 mg bid prn with IM back up as needed. Initially, pt and I discussed an Abilify Maintena trial to address symptoms. From observation of pt's intensity of psychosis, agitation, lability, this does not appear to be the best agent to meet this level of symptom intensity. Will discuss with pt an Invega trial with transition to Sustenna during his hospitalization with initiation. 05/07/21 Invega 6 mg 05/08. Continue Thorazine prn. (pt required IM back up on 05/07/21) 05/08/21 Continue current plan of care. 05/09/21: Ct w plan per [facility] order 05/10/21: Ct Rx plan 05/11/21: Continue Invega titration. 05/12/21 Pt tolerating Invega. Will begin Sustenna on 05/13. 05/13/21 Sustanna given, tolerated. Support, educate, integrate into milieu for added support. 05/14/21 Tolerating Sustenna. Calmer, more focused today. Asking for help with legal issues, attempting to organize his responsibilities 05/15/21 Continue current plan. 05/16/21 Continue current plan 05/17/21 Continue current plan 05/18/21 Follow up with probation-pt agrees and signed JAENNETTE Second Sustenna injection 05/21. Tolerating with breakthrough sx with PO as well. 05/19/21 Team/Peers report evening/night agitation Depakote 500 mg ER HS 05/20/21 Continue current regime Scheduled Invega injection for 05/21 Continue to attempt alliance building, education, support 05/21/21 Continue current regimen, no changes to medication, will monitor for benefit on invega sustenna COKER. Still taking PO invega. Has not been taking PO depakote, so will not order a level. 05/22/21 Continue current regimen, pt is tolerating invega sustenna well. Not taking depa kote. Appropriate on the unit. 05/23/21: No changes to above med plan. 05/24/21: No changes to above plan, continue PO invega until invega sustenna reaches steady state. Pt somewhat intrusive with high fiving staff but redirectable. 05/26/21: Continue current plan. [facility] application 05/27/21 Pt has been refusing Depakote at hs with resulting poor sleep. Will give Chlorpromazine IM if Depakote is refused. 05/28/21 Continue current plan Labs 06/01/20. I spent minutes with the patient and/or on the patient floor today, greater than?50% of which was spent counseling/coordinating care. Patient educated on: medication risk/benefits, therapeutic strategies and other Informed Consent: further education needed Reason for contiued inpatient stay Substantial Risk for: harm to self, harm to others, inability to function and rapid decompensation
[2021-05-28 18:00] VITALS: BP 115/63; PULSE 100; TEMP 37.1; O2SAT 97
[2021-05-29 06:00] VITALS: BP 116/74; PULSE 86; RESP 16; TEMP 36.6; O2SAT 98
[2021-05-29] MEDS: Paliperidone ER 6 MG TAB.ER.24 PO (08:58)
--- NOTE | 2021-05-29 11:13 | HO.PSYCHPN ---
Subjective Subjective Date of Service: 05/29/21 Reason For Visit: Schizophrenia Subjective Notes: [place] Order and Section 8 Interim History: Pt irritable today; Doesn't like depakote with vague complaint that he was on it as a teenager and didn't need ti then and doesn't need it now. He is angry with having to take medications. He is anxious and irritable; speech mildly pressured. Thoughts not clear., remains with delusions and confusion, Labile and yelling in the hallway midday. Medication Compliance: Intermittent Side effects from medications: No Review of Systems Acute medical concerns: No Medical Review of Systems: unchanged Review of Systems Constitutional: Reports no additional constitutional complaints Musculoskeletal: Reports other (denies, s/p punching a wall with abrasions sustatined) Reports behavioral changes, Reports confusion and Reports memory loss Psychiatric: Reports abnormal sleep pattern, Reports anxiety, Reports behavioral changes, Reports confusion, Reports depression, Reports difficulty concentrating, Reports auditory hallucinations, Reports hopelessness, Reports irritability, Reports anhedonia, Reports memory loss, Reports mood swings, Reports paranoia, Reports visual hallucinations, Reports hallucinations, Reports homicidal ideation, Reports suicidal ideation (denies) and Reports other (aggression, agitation, violence precipitating restraint) Mental Status Exam Mental Status Exam Narrative: Patient Appearance:?Appropriate Patient Orientation:?Person, Place, Time and Situation Level of Consciousness:?Alert Patient Behavior:?Guarded, Talkative, Cooperative and Good Eye Contact Mood Description:?Apprehensive,irritable, anxious, labile Affect Description:?Constricted, labile Patient Cognition Impaired:?Yes Ability to Follow Directions:?Good Speech Pattern:?Spontaneous Speech Memory Description:?Remote Impaired and Episodic Impaired Hallucinations:?Auditory Delusions:?Paranoid Ideation and Grandiose Perceptual Disturbances:?Derealization Thought Process:?Distracted Thought Content:?positive for Circumstantial, positive for Tangential and positive for Suicidal Ideation (denies) Depressive Symptoms:?Increased Anxiety Judgment:?Poor Patient Appearance: Appropriate Patient Orientation: Person, Place, Time and Situation Level of Consciousness: Alert Patient Behavior: Appropriate, Talkative and Good Eye Contact Mood Description: Anxious Affect Description: Anxious Patient Cognition Impaired: Yes Ability to Follow Directions: Good Speech Pattern: Spontaneous Speech Memory Description: Episodic Impaired Diagnostics Vital Signs (24Hr): Vital Signs - 24 hr 05/28/21 18:00 05/29/21 06:00 Temperature 98.7 F 97.8 F Pulse Rate 100 86 Respiratory Rate 16 Blood Pressure 115/63 116/74 Pulse Oximetry 97 98 BMI result Body Mass Index 26.4 Labs Results: 04/21/21 07:08 05/13/21 11:23 Imaging Radiology Impressions: ITS Impressions Face X-Ray 04/21/21 15:29 IMPRESSION: No fracture seen. Orbit X-Ray 04/21/21 15:29 IMPRESSION: No fracture seen. Cervical Spine CT 04/24/21 22:24 IMPRESSION: No evidence of acute intracranial abnormalities. No evidence of acute maxillofacial fractures. However, evaluation of the inferior mandibular body is limited due to motion and although no definite fractures or surrounding soft tissue thickening/hematoma are identified, clinical correlation for pain/tenderness in the inferior mandible should be obtained as this is suboptimally assessed in this study. No acute cervical fractures or malalignment. Face CT 04/24/21 22:24 IMPRESSION: No evidence of acute intracranial abnormalities. No evidence of acute maxillofacial fractures. However, evaluation of the inferior mandibular body is limited due to motion and although no definite fractures or surrounding soft tissue thickening/hematoma are identified, clinical correlation for pain/tenderness in the inferior mandible should be obtained as this is suboptimally assessed in this study. No acute cervical fractures or malalignment. Head CT 04/24/21 22:24 IMPRESSION: No evidence of acute intracranial abnormalities. No evidence of acute maxillofacial fractures. However, evaluation of the inferior mandibular body is limited due to motion and although no definite fractures or surrounding soft tissue thickening/hematoma are identified, clinical correlation for pain/tenderness in the inferior mandible should be obtained as this is suboptimally assessed in this study. No acute cervical fractures or malalignment. Medications Medications Current Medications Acetaminophen (Acetaminophen 325 Mg Tablet) 650 mg PO Q6H PRN PRN Reason: Headache/Pain Mild Scale (1-3) Last Admin: 05/21/21 21:14 Dose: 650 mg Documented by: Al Hydroxide/Mg Hydroxide (Magnesium Hydrox/Alum Hydrox 30 Ml Oral.Susp) 30 ml PO Q6H PRN PRN Reason: Heartburn/Nausea Last Admin: 05/27/21 00:13 Dose: 30 ml Documented by: Benztropine Mesylate (Benztropine Mesylate 1 Mg Tablet) 1 mg PO TID PRN PRN Reason: Extrapyramidal Effects Chlorpromazine HCl (Chlorpromazine Hcl 100 Mg Tablet) 100 mg PO BID PRN PRN Reason: psychotic agitation Chlorpromazine HCl (Chlorpromazine Hcl 50 Mg/2 Ml Ampul) 50 mg IM BEDTIME PRN PRN Reason: if refuses Depakote per court order Last Admin: 05/28/21 21:01 Dose: 50 mg Documented by: Diphenhydramine HCl (Diphenhydramine Hcl 25 Mg Tablet) 50 mg PO Q4H PRN PRN Reason: agitation Last Admin: 05/22/21 00:07 Dose: 50 mg Documented by: Divalproex Sodium (Divalproex Sodium Er 500 Mg Tab.Er.24h) 500 mg PO BEDTIME MARGAUX Last Admin: 05/28/21 21:10 Dose: Not Given Documented by: Hydroxyzine HCl (Hydroxyzine Hcl 25 Mg Tablet) 25 mg PO QID PRN PRN Reason: Anxiety Last Admin: 05/21/21 21:14 Dose: 25 mg Documented by: Ibuprofen (Ibuprofen 600 Mg Tablet) 600 mg PO Q4H PRN PRN Reason: Pain, Moderate (Pain Scale 4-6 Last Admin: 05/22/21 07:13 Dose: 600 mg Documented by: Magnesium Hydroxide (Milk Of Magnesia 30 Ml Oral.Susp) 30 ml PO DAILY PRN PRN Reason: Constipation Multi-Ingred Cream/Lotion/Oil/Oint (Mineral Oil/Petrolatum,White 106 Gm Tube) 1 appl TOPICAL TID [facility]; Protocol Last Admin: 05/29/21 08:33 Dose: Not Given Documented by: Nicotine (Nicotine 21 Mg Patch.Td24) 21 mg TRANSDERMA DAILY PRN PRN Reason: smoking cessation Nicotine Polacrilex (Nicotine Polacrilex 2 Mg Gum) 4 mg BUCCAL Q2H PRN PRN Reason: Nicotine Cravings Paliperidone (Paliperidone Er 6 Mg Tab.Er.24) 6 mg PO DAILY [facility] Last Admin: 05/29/21 08:58 Dose: 6 mg Documented by: Polyethylene Glycol (Polyethylene Glycol 3350 17 Gm Powd.Pack) 17 gm PO DAILY PRN PRN Reason: CONSTIPATION Senna (Sennosides 8.6 Mg Tablet) 17.2 mg PO BEDTIME [facility] Last Admin: 05/28/21 21:10 Dose: Not Given Documented by: Trazodone HCl (Trazodone Hcl 50 Mg Tablet) 50 mg PO BEDTIME PRN PRN Reason: Insomnia Allergies Allergies Allergy/AdvReac Type Severity Reaction Status Date / Time haloperidol [From HALDOL] Allergy Severe DYSTONIA Verified 04/19/21 06:28 ziprasidone [From GEODON] Allergy Severe DYSTONIA Verified 04/19/21 06:28 Assessment & Plan Assessment & Plan (1) Schizoaffective disorder, bipolar type: Status: Acute Code(s): F25.0 - Schizoaffective disorder, bipolar type Assessment and Plan: Continues with psychosis, aggressive agitation, lability of mood. Requiring restraint. Thorazine 50 mg tid with IM back up as needed Thorazine 100 mg bid prn with IM back up as needed. Initially, pt and I discussed an Abilify Maintena trial to address symptoms. From observation of pt's intensity of psychosis, agitation, lability, this does not appear to be the best agent to meet this level of symptom intensity. Will discuss with pt an Invega trial with transition to Sustenna during his hospitalization with initiation. 05/07/21 Invega 6 mg 05/08. Continue Thorazine prn. (pt required IM back up on 05/07/21) 05/08/21 Continue current plan of care. 05/09/21: Ct w plan per Wolff order 05/10/21: Ct Rx plan 05/11/21: Continue Invega titration. 05/12/21 Pt tolerating Invega. Will begin Sustenna on 05/13. 05/13/21 Sustanna given, tolerated. Support, educate, integrate into milieu for added support. 05/14/21 Tolerating Sustenna. Calmer, more focused today. Asking for help with legal issues, attempting to organize his responsibilities 05/15/21 Continue current plan. 05/16/21 Continue current plan 05/17/21 Continue current plan 05/18/21 Follow up with probation-pt agrees and signed JEANNETTE Second Sustenna injection 05/21. Tolerating with breakthrough sx with PO as well. 05/19/21 Team/Peers report evening/night agitation Depakote 500 mg ER HS 05/20/21 Continue current regime Scheduled Invega injection for 05/21 Continue to attempt alliance building, education, support 05/21/21 Continue current regimen, no changes to medication, will monitor for benefit on invega sustenna COKER. Still taking PO invega. Has not been taking PO depakote, so will not order a level. 05/22/21 Continue current regimen, pt is tolerating invega sustenna well. Not taking depakote. Appropriate on the unit. 05/23/21: No changes to above med plan. 05/24/21: No changes to above plan, continue PO invega until invega sustenna reaches steady state. Pt somewhat intrusive with high fiving staff but redirectable. 05/26/21: Continue current plan. Vibra application 05/27/21 Pt has been refusing Depakote at hs with resulting poor sleep. Will give Chlorpromazine IM if Depakote is refused. 05/28/21 Continue current plan Labs 06/01/20. 05/29/21 Continue with current plan I spent minutes with the patient and/or on the patient floor today, greater than?50% of which was spent counseling/coordinating care. Patient educated on: diagnosis, medication risk/benefits and therapeutic strategies Informed Consent: does not understand and further education needed Reason for contiued inpatient stay Substantial Risk for: harm to self, harm to others, inability to function and rapid decompensation
[2021-05-29 18:05] VITALS: BP 123/72; PULSE 99; RESP 20; TEMP 36.4; O2SAT 97
[2021-05-29] MEDS: chlorproMAZINE HCl 100 MG TABLET PO (22:04)
--- NOTE | 2021-05-29 22:21 | PC.NURSE ---
Pt requesting to take PO thorazine at HS instead of IM thorazine. Pt refusing to take depakote. Pt reported to this RN that last night he slept well after the injection of Thorazine and requested to take PO instead tonight (SEE MAR). Case discussed with oncall - Ok to give PO Thorazine. Will con't to monitor and provide support.
[2021-05-30 06:00] VITALS: BP 146/60; PULSE 100; RESP 16; TEMP 36.3; O2SAT 99
[2021-05-30] MEDS: Paliperidone ER 6 MG TAB.ER.24 PO (08:02)
[2021-05-30 18:00] VITALS: BP 122/71; PULSE 94; TEMP 37; O2SAT 98
--- NOTE | 2021-05-30 19:19 | P.PNPSI_ITS ---
Subjective Subjective Date of Service: 05/30/21 Reason For Visit: Schizophrenia Interim History: Pt less irritable today; Bright affect. Pt nt taking the depakote but instead taking PO thorazine. nursing watching for cheeking meds. speech less pressured. Medication Compliance: Intermittent Side effects from medications: No Review of Systems Acute medical concerns: No Medical Review of Systems: unchanged Review of Systems Constitutional: Reports no additional constitutional complaints Musculoskeletal: Reports other (denies, s/p punching a wall with abrasions sustatined) Reports behavioral changes, Reports confusion and Reports memory loss Psychiatric: Reports abnormal sleep pattern, Reports anxiety, Reports behavioral changes, Reports confusion, Reports depression, Reports difficulty concentrating, Reports auditory hallucinations, Reports hopelessness, Reports irritability, Reports anhedonia, Reports memory loss, Reports mood swings, Reports paranoia, Reports visual hallucinations, Reports hallucinations, Reports homicidal ideation, Reports suicidal ideation (denies) and Reports other (aggression, agitation, violence precipitating restraint) Mental Status Exam Mental Status Exam Narrative: Patient Appearance:?Appropriate Patient Orientation:?Person, Place, Time and Situation Level of Consciousness:?Alert Patient Behavior:?Guarded, Talkative, Cooperative and Good Eye Contact Mood Description:?Apprehensive,irritable, anxious, labile Affect Description:?Constricted, labile Patient Cognition Impaired:?Yes Ability to Follow Directions:?Good Speech Pattern:?Spontaneous Speech Memory Description:?Remote Impaired and Episodic Impaired Hallucinations:?Auditory Delusions:?Paranoid Ideation and Grandiose Perceptual Disturbances:?Derealization Thought Process:?Distracted Thought Content:?positive for Circumstantial, positive for Tangential and positive for Suicidal Ideation (denies) Depressive Symptoms:?Increased Anxiety Judgment:?Poor Patient Appearance: Appropriate Patient Orientation: Person, Place, Time and Situation Level of Consciousness: Alert Patient Behavior: Appropriate, Talkative and Good Eye Contact Mood Description: Anxious Affect Description: Anxious Patient Cognition Impaired: Yes Ability to Follow Directions: Good Speech Pattern: Spontaneous Speech Memory Description: Episodic Impaired Judgement: Fair Diagnostics Vital Signs (24Hr): Vital Signs - 24 hr 05/30/21 06:00 05/30/21 18:00 Temperature 97.4 F 98.6 F Pulse Rate 100 94 Respiratory Rate 16 Blood Pressure 146/60 H 122/71 Pulse Oximetry 99 98 BMI result Body Mass Index 26.4 Labs Results: 04/21/21 07:08 05/13/21 11:23 Imaging Radiology Impressions: ITS Impressions Face X-Ray 04/21/21 15:29 IMPRESSION: No fracture seen. Orbit X-Ray 04/21/21 15:29 IMPRESSION: No fracture seen. Cervical Spine CT 04/24/21 22:24 IMPRESSION: No evidence of acute intracranial abnormalities. No evidence of acute maxillofacial fractures. However, evaluation of the inferior mandibular body is limited due to motion and although no definite fractures or surrounding soft tissue thickening/hematoma are identified, clinical correlation for pain/tenderness in the inferior mandible should be obtained as this is suboptimally assessed in this study. No acute cervical fractures or malalignment. Face CT 04/24/21 22:24 IMPRESSION: No evidence of acute intracranial abnormalities. No evidence of acute maxillofacial fractures. However, evaluation of the inferior mandibular body is limited due to motion and although no definite fractures or surrounding soft tissue thickening/hematoma are identified, clinical correlation for pain/tenderness in the inferior mandible should be obtained as this is suboptimally assessed in this study. No acute cervical fractures or malalignment. Head CT 04/24/21 22:24 IMPRESSION: No evidence of acute intracranial abnormalities. No evidence of acute maxillofacial fractures. However, evaluation of the inferior mandibular body is limited due to motion and although no definite fractures or surrounding soft tissue thickening/hematoma are identified, clinical correlation for pain/tenderness in the inferior mandible should be obtained as this is suboptimally assessed in this study. No acute cervical fractures or malalignment. Medications Medications Current Medications Acetaminophen (Acetaminophen 325 Mg Tablet) 650 mg PO Q6H PRN PRN Reason: Headache/Pain Mild Scale (1-3) Last Admin: 05/21/21 21:14 Dose: 650 mg Documented by: Al Hydroxide/Mg Hydroxide (Magnesium Hydrox/Alum Hydrox 30 Ml Oral.Susp) 30 ml PO Q6H PRN PRN Reason: Heartburn/Nausea Last Admin: 05/27/21 00:13 Dose: 30 ml Documented by: Benztropine Mesylate (Benztropine Mesylate 1 Mg Tablet) 1 mg PO TID PRN PRN Reason: Extrapyramidal Effects Chlorpromazine HCl (Chlorpromazine Hcl 100 Mg Tablet) 100 mg PO BID PRN PRN Reason: psychotic agitation Last Admin: 05/29/21 22:04 Dose: 100 mg Documented by: Chlorpromazine HCl (Chlorpromazine Hcl 50 Mg/2 Ml Ampul) 50 mg IM BEDTIME PRN PRN Reason: if refuses Depakote per court order Last Admin: 05/28/21 21:01 Dose: 50 mg Documented by: Diphenhydramine HCl (Diphenhydramine Hcl 25 Mg Tablet) 50 mg PO Q4H PRN PRN Reason: agitation Last Admin: 05/22/21 00:07 Dose: 50 mg Documented by: Divalproex Sodium (Divalproex Sodium Er 500 Mg Tab.Er.24h) 500 mg PO BEDTIME [place] Last Admin: 05/29/21 22:51 Dose: Not Given Documented by: Hydroxyzine HCl (Hydroxyzine Hcl 25 Mg Tablet) 25 mg PO QID PRN PRN Reason: Anxiety Last Admin: 05/21/21 21:14 Dose: 25 mg Documented by: Ibuprofen (Ibuprofen 600 Mg Tablet) 600 mg PO Q4H PRN PRN Reason: Pain, Moderate (Pain Scale 4-6 Last Admin: 05/22/21 07:13 Dose: 600 mg Documented by: Magnesium Hydroxide (Milk Of Magnesia 30 Ml Oral.Susp) 30 ml PO DAILY PRN PRN Reason: Constipation Multi-Ingred Cream/Lotion/Oil/Oint (Mineral Oil/Petrolatum,White 106 Gm Tube) 1 appl TOPICAL TID [facility]; Protocol Last Admin: 05/30/21 14:22 Dose: Not Given Documented by: Nicotine (Nicotine 21 Mg Patch.Td24) 21 mg TRANSDERMA DAILY PRN PRN Reason: smoking cessation Nicotine Polacrilex (Nicotine Polacrilex 2 Mg Gum) 4 mg BUCCAL Q2H PRN PRN Reason: Nicotine Cravings Paliperidone (Paliperidone Er 6 Mg Tab.Er.24) 6 mg PO DAILY [facility] Last Admin: 05/30/21 08:02 Dose: 6 mg Documented by: Polyethylene Glycol (Polyethylene Glycol 3350 17 Gm Powd.Pack) 17 gm PO DAILY PRN PRN Reason: CONSTIPATION Senna (Sennosides 8.6 Mg Tablet) 17.2 mg PO BEDTIME [facility] Last Admin: 05/29/21 22:52 Dose: Not Given Documented by: Trazodone HCl (Trazodone Hcl 50 Mg Tablet) 50 mg PO BEDTIME PRN PRN Reason: Insomnia Allergies Allergies Allergy/AdvReac Type Severity Reaction Status Date / Time haloperidol [From HALDOL] Allergy Severe DYSTONIA Verified 04/19/21 06:28 ziprasidone [From GEODON] Allergy Severe DYSTONIA Verified 04/19/21 06:28 Assessment & Plan Assessment & Plan (1) Schizoaffective disorder, bipolar type: Status: Acute Code(s): F25.0 - Schizoaffective disorder, bipolar type Assessment and Plan: Continues with psychosis, aggressive agitation, lability of mood. Requiring restraint. Thorazine 50 mg tid with IM back up as needed Thorazine 100 mg bid prn with IM back up as needed. Initially, pt and I discussed an Abilify Maintena trial to address symptoms. From observation of pt's intensity of psychosis, agitation, lability, this does not appear to be the best agent to meet this level of symptom intensity. Will discuss with pt an Invega trial with transition to Sustenna during his hospitalization with initiation. 05/07/21 Invega 6 mg 05/08. Continue Thorazine prn. (pt required IM back up on 05/07/21) 05/08/21 Continue current plan of care. 05/09/21: Ct w plan per [facility]ff order 05/10/21: Ct Rx plan 05/11/21: Continue Invega titration. 05/12/21 Pt tolerating Invega. Will begin Sustenna on 05/13. 05/13/21 Sustanna given, tolerated. Support, educate, integrate into milieu for added support. 05/14/21 Tolerating Sustenna. Calmer, more focused today. Asking for help with legal issues, attempting to o rganize his responsibilities 05/15/21 Continue current plan. 05/16/21 Continue current plan 05/17/21 Continue current plan 05/18/21 Follow up with probation-pt agrees and signed JEANNETTE Second Sustenna injection 05/21. Tolerating with breakthrough sx with PO as well. 05/19/21 Team/Peers report evening/night agitation Depakote 500 mg ER HS 05/20/21 Continue current regime Scheduled Invega injection for 05/21 Continue to attempt alliance building, education, support 05/21/21 Continue current regimen, no changes to medication, will monitor for benefit on invega sustenna COKER. Still taking PO invega. Has not been taking PO depakote, so will not order a level. 05/22/21 Continue current regimen, pt is tolerating invega sustenna well. Not taking depakote. Appropriate on the unit. 05/23/21: No changes to above med plan. 05/24/21: No changes to above plan, continue PO invega until invega sustenna reaches steady state. Pt somewhat intrusive with high fiving staff but redirectable. 05/26/21: Continue current plan. Vibra application 05/27/21 Pt has been refusing Depakote at hs with resulting poor sleep. Will give Chlorpromazine IM if Depakote is refused. 05/28/21 Continue current plan Labs 06/01/20. 05/29/21 Continue with current plan 05/30/21 continue with current treatment plan I spent minutes with the patient and/or on the patient floor today, gr eater than?50% of which was spent counseling/coordinating care. Reason for contiued inpatient stay Substantial Risk for: harm to self, harm to others, inability to function and rapid decompensation
[2021-05-30] MEDS: chlorproMAZINE HCl 100 MG TABLET PO (21:18)
[2021-05-31 06:00] VITALS: BP 112/59; PULSE 83; RESP 16; TEMP 36.9; O2SAT 96
[2021-05-31] MEDS: Paliperidone ER 6 MG TAB.ER.24 PO (08:34)
--- NOTE | 2021-05-31 10:42 | HO.PSYCHPN ---
Subjective Subjective Date of Service: 05/31/21 Reason For Visit: Schizophrenia Subjective Notes: Wolff Order Interim History: Pt less irritable today; Bright affect. Pt taking PO thorazine. refusing Depakote. nursing watching for cheeking meds. speech mildly pressured. mood bright. Medication Compliance: Intermittent Side effects from medications: No Attending Groups: Intermittent Review of Systems Acute medical concerns: No Medical Review of Systems: unchanged Review of Systems Review of Systems no changes Constitutional: Reports no additional constitutional complaints Musculoskeletal: Reports other (denies, s/p punching a wall with abrasions sustatined) Reports behavioral changes, Reports confusion and Reports memory loss Psychiatric: Reports abnormal sleep pattern, Reports anxiety, Reports behavioral changes, Reports confusion, Reports depression, Reports difficulty concentrating, Reports auditory hallucinations, Reports hopelessness, Reports irritability, Reports anhedonia, Reports memory loss, Reports mood swings, Reports paranoia, Reports visual hallucinations, Reports hallucinations, Reports homicidal ideation, Reports suicidal ideation (denies) and Reports other (aggression, agitation, violence precipitating restraint) Mental Status Exam Mental Status Exam Narrative: Patient Appearance:?Appropriate Patient Orientation:?Person, Place, Time and Situation Level of Consciousness:?Alert Patient Behavior:?Guarded, Talkative, Cooperative and Good Eye Contact Mood Description:?somewhat elevated, bright, anxious Affect Description:?Constricted, labile Patient Cognition Impaired:?Yes Ability to Follow Directions:?Good Speech Pattern:?Spontaneous Speech Memory Description:?Remote Impaired and Episodic Impaired Hallucinations:?Auditory Delusions:?Paranoid Ideation and [place] Perceptual Disturbances:?Derealization Thought Process:?Distracted Thought Content:?positive for Circumstantial, positive for Tangential denies Suicidal Ideation Depressive Symptoms:?Increased Anxiety Judgment:?Poor Patient Appearance: Appropriate Patient Orientation: Person, Place, Time and Situation Level of Consciousness: Alert Patient Behavior: Appropriate, Talkative and Good Eye Contact Mood Description: Anxious Affect Description: Anxious Patient Cognition Impaired: Yes Ability to Follow Directions: Good Speech Pattern: Spontaneous Speech Memory Description: Episodic Impaired Diagnostics Vital Signs (24Hr): Vital Signs - 24 hr 05/30/21 18:00 05/31/21 06:00 Temperature 98.6 F 98.4 F Pulse Rate 94 83 Respiratory Rate 16 Blood Pressure 122/71 112/59 L Pulse Oximetry 98 96 BMI result Body Mass Index 26.4 Labs Results: 04/21/21 07:08 05/13/21 11:23 Imaging Radiology Impressions: ITS Impressions Face X-Ray 04/21/21 15:29 IMPRESSION: No fracture seen. Orbit X-Ray 04/21/21 15:29 IMPRESSION: No fracture seen. Cervical Spine CT 04/24/21 22:24 IMPRESSION: No evidence of acute intracranial abnormalities. No evidence of acute maxillofacial fractures. However, evaluation of the inferior mandibular body is limited due to motion and although no definite fractures or surrounding soft tissue thickening/hematoma are identified, clinical correlation for pain/tenderness in the inferior mandible should be obtained as this is suboptimally assessed in this study. No acute cervical fractures or malalignment. Face CT 04/24/21 22:24 IMPRESSION: No evidence of acute intracranial abnormalities. No evidence of acute maxillofacial fractures. However, evaluation of the inferior mandibular body is limited due to motion and although no definite fractures or surrounding soft tissue thickening/hematoma are identified, clinical correlation for pain/tenderness in the inferior mandible should be obtained as this is suboptimally assessed in this study. No acute cervical fractures or malalignment. Head CT 04/24/21 22:24 IMPRESSION: No evidence of acute intracranial abnormalities. No evidence of acute maxillofacial fractures. However, evaluation of the inferior mandibular body is limited due to motion and although no definite fractures or surrounding soft tissue thickening/hematoma are identified, clinical correlation for pain/tenderness in the inferior mandible should be obtained as this is suboptimally assessed in this study. No acute cervical fractures or malalignment. Medications Medications Current Medications Acetaminophen (Acetaminophen 325 Mg Tablet) 650 mg PO Q6H PRN PRN Reason: Headache/Pain Mild Scale (1-3) Last Admin: 05/21/21 21:14 Dose: 650 mg Documented by: Al Hydroxide/Mg Hydroxide (Magnesium Hydrox/Alum Hydrox 30 Ml Oral.Susp) 30 ml PO Q6H PRN PRN Reason: Heartburn/Nausea Last Admin: 05/27/21 00:13 Dose: 30 ml Documented by: Benztropine Mesylate (Benztropine Mesylate 1 Mg Tablet) 1 mg PO TID PRN PRN Reason: Extrapyramidal Effects Chlorpromazine HCl (Chlorpromazine Hcl 100 Mg Tablet) 100 mg PO BID PRN PRN Reason: psychotic agitation Last Admin: 05/30/21 21:18 Dose: 100 mg Documented by: Chlorpromazine HCl (Chlorpromazine Hcl 50 Mg/2 Ml Ampul) 50 mg IM BEDTIME PRN PRN Reason: if refuses Depakote per court order Last Admin: 05/28/21 21:01 Dose: 50 mg Documented by: Diphenhydramine HCl (Diphenhydramine Hcl 25 Mg Tablet) 50 mg PO Q4H PRN PRN Reason: agitation Last Admin: 05/22/21 00:07 Dose: 50 mg Documented by: Divalproex Sodium (Divalproex Sodium Er 500 Mg Tab.Er.24h) 500 mg PO BEDTIME [facility] Last Admin: 05/30/21 21:15 Dose: Not Given Documented by: Hydroxyzine HCl (Hydroxyzine Hcl 25 Mg Tablet) 25 mg PO QID PRN PRN Reason: Anxiety Last Admin: 05/21/21 21:14 Dose: 25 mg Documented by: Ibuprofen (Ibuprofen 600 Mg Tablet) 600 mg PO Q4H PRN PRN Reason: Pain, Moderate (Pain Scale 4-6 Last Admin: 05/22/21 07:13 Dose: 600 mg Documented by: Magnesium Hydroxide (Milk Of Magnesia 30 Ml Oral.Susp) 30 ml PO DAILY PRN PRN Reason: Constipation Multi-Ingred Cream/Lotion/Oil/Oint (Mineral Oil/Petrolatum,White 106 Gm Tube) 1 appl TOPICAL TID [facility]; Protocol Last Admin: 05/31/21 09:25 Dose: Not Given Documented by: Nicotine (Nicotine 21 Mg Patch.Td24) 21 mg TRANSDERMA DAILY PRN PRN Reason: smoking cessation Nicotine Polacrilex (Nicotine Polacrilex 2 Mg Gum) 4 mg BUCCAL Q2H PRN PRN Reason: Nicotine Cravings Paliperidone (Paliperidone Er 6 Mg Tab.Er.24) 6 mg PO DAILY [facility] Last Admin: 05/31/21 08:34 Dose: 6 mg Documented by: Polyethylene Glycol (Polyethylene Glycol 3350 17 Gm Powd.Pack) 17 gm PO DAILY PRN PRN Reason: CONSTIPATION Senna (Sennosides 8.6 Mg Tablet) 17.2 mg PO BEDTIME [facility] Last Admin: 05/30/21 21:22 Dose: Not Given Documented by: Trazodone HCl (Trazodone Hcl 50 Mg Tablet) 50 mg PO BEDTIME PRN PRN Reason: Insomnia Allergies Allergies Allergy/AdvReac Type Severity Reaction Status Date / Time haloperidol [From HALDOL] Allergy Severe DYSTONIA Verified 04/19/21 06:28 ziprasidone [From GEODON] Allergy Severe DYSTONIA Verified 04/19/21 06:28 Assessment & Plan Assessment & Plan (1) Schizoaffective disorder, bipolar type: Status: Acute Code(s): F25.0 - Schizoaffective disorder, bipolar type Assessment and Plan: Continues with psychosis, aggressive agitation, lability of mood. Requiring restraint. Thorazine 50 mg tid with IM back up as needed Thorazine 100 mg bid prn with IM back up as needed. Initially, pt and I discussed an Abilify Maintena trial to address symptoms. From observation of pt's intensity of psychosis, agitation, lability, this does not appear to be the best agent to meet this level of symptom intensity. Will discuss with pt an Invega trial with transition to Sustenna during his hospitalization with initiation. 05/07/21 Invega 6 mg 05/08. Continue Thorazine prn. (pt required IM back up on 05/07/21) 05/08/21 Continue current plan of care. 05/09/21: Ct w plan per Wolff order 05/10/21: Ct Rx plan 05/11/21: Continue Invega titration. 05/12/21 Pt tolerating Invega. Will begin Sustenna on 05/13. 05/13/21 Sustanna given, tolerated. Support, educate, integrate into milieu for added support. 05/14/21 Tolerating Sustenna. Calmer, more focused today. Asking for help with legal issues, attempting to organize his responsibilities 05/15/21 Continue current plan. 05/16/21 Continue current plan 05/17/21 Continue current plan 05/18/21 Follow up with probation-pt agrees and signed JEANNETTE Second Sustenna injection 05/21. Tolerating with breakthrough sx with PO as well. 05/19/21 Team/Peers report evening/night agitation Depakote 500 mg ER HS 05/20/21 Continue current regime Scheduled Invega injection for 05/21 Continue to attempt alliance building, education, support 05/21/21 Continue current regimen, no changes to medication, will monitor for benefit on invega sustenna COKER. Still taking PO invega. Has not been taking PO depakote, so will not order a level. 05/22/21 Continue current regimen, pt is tolerating invega sustenna well. Not taking depakote. Appropriate on the unit. 05/23/21: No changes to above med plan. 05/24/21: No changes to above plan, continue PO invega until invega sustenna reaches steady state. Pt somewhat intrusive with high fiving staff but redirectable. 05/26/21: Continue current plan. Vibra application 05/27/21 Pt has been refusing Depakote at hs with resulting poor sleep. Will give Chlorpromazine IM if Depakote is refused. 05/28/21 Continue current plan Labs 06/01/20. 05/29/21 Continue with current plan 05/30/21 continue with current treatment plan 05/31/21 continue with current treatment plan I spent minutes with the patient and/or on the patient floor today, greater than?50% of which was spent counseling/coordinating care. Patient educated on: medication risk/benefits and therapeutic strategies Informed Consent: does not understand and further education needed Reason for contiued inpatient stay Substantial Risk for: harm to self, harm to others, inability to function and rapid decompensation
[2021-05-31 18:00] VITALS: BP 112/58; PULSE 78; TEMP 36.9; O2SAT 98
[2021-05-31] MEDS: chlorproMAZINE HCl 100 MG TABLET PO (20:29)
[2021-06-01 06:00] VITALS: BP 108/68; PULSE 92; RESP 18; TEMP 36.7; O2SAT 98
[2021-06-01] MEDS: Paliperidone ER 6 MG TAB.ER.24 PO (08:18)
[2021-06-01 08:23] LABS: MANUAL DIFF FLAG NO
[2021-06-01 08:27] LABS: Basophils Percent Auto 0.3 % (0-2); Eosinophils Absolute Auto 0.1 X10*3/uL (0.0-0.4); Eosinophils Percent Auto 0.8 % (0-4); Hematocrit 44.6 % (42.0-52.0); Hemoglobin 14.6 g/dl (14.0-18.0); Imm Gran Abs Auto 0.12 X10*3/uL (0.00-0.03); Imm Gran Pct Auto 1.7 % (0.0-0.4); Lymphocytes Absolute Auto 1.4 X10*3/uL (1.2-4.9); Lymphocytes Percent Auto 19.9 % (20-40); Mean Corpuscular HGB Conc 32.7 g/dl (31.0-36.0); Mean Corpuscular Hemoglobin 26.7 pg (27.0-33.0); Mean Corpuscular Volume 81.7 fL (80.0-98.0); Mean Platelet Volume 9.6 fL (9.4-12.4); Monocytes Absolute Auto 0.5 X10*3/uL (0.1-1.2); Monocytes Percent Auto 6.8 % (2-11); Neutrophils Absolute Auto 5.1 x10*3/uL (2.0-8.3); Neutrophils Percent Auto 70.5 % (45-73); Platelet Count 208 X10*3/uL (160-400); Red Blood Count 5.46 X10*6/uL (4.60-5.80); Red Cell Distribution Width 13.5 % (11.0-16.0); White Blood Count 7.2 X10*3/uL (4.8-10.8)
[2021-06-01 08:40] LABS: Estimated Average Glucose 100 mg/dL; Hemoglobin A1c % 5.1 %
[2021-06-01 08:41] LABS: Alanine Aminotransferase 31 U/L (0-40); Albumin Level 4.2 g/dL (3.5-5.0); Alkaline Phosphatase 49 U/L (39-117); Anion Gap 10 (12-20); Aspartate Amino Transferase 22 U/L (5-37); Bilirubin Total 0.4 mg/dL (0.0-1.0); Blood Urea Nitrogen 18 mg/dL (9-16); Calcium 9.5 mg/dL (8.4-10.2); Carbon Dioxide 27 mmol/L (22-29); Chloride 107 mmol/L (96-108); Cholesterol 166 mg/dL; Creatinine Clr Calc Pharmacy 93.7; Estimated Glomerular Filt Rate > 60; Glucose Random 101 mg/dL (60-115); HDL Cholesterol 59 mg/dL; LDL Cholesterol Calculated 94 mg/dl; Sodium 140 mmol/L (135-145); Total Protein 6.7 g/dL (6.5-8.0); Triglycerides 69 mg/dL
--- NOTE | 2021-06-01 17:27 | HO.PSYCHPN ---
Subjective Subjective Date of Service: 06/01/21 Reason For Visit: Schizophrenia Subjective Notes: Section 8 Healthcare Proxy: No Guardianship: No Medical Problems Affecting Mental Status: No Interim History: I have goals. Identifies goals as getting a license, car, job and hoping to be accepted to [employer]. States he will have a zoom meeting with mother on 06/02/20 to discuss Vibra and her thoughts on this-he is thinking this may be a helpful idea to assist him in independence. Also asks about the [facility] [facility]. Interested in beginning psychotherapy during hospitalization with out pt referrals to begin to form alliance. Review of medications. Finds Sustenna to be non-sedating, without adverse effects, without excess gain of weight. Approves and would like to continue. Per Court order, [place] is an option-this is not an option pt wants-by history, low dose Depakote had worked and pt chose this as an agent to use to assist in sleep. However, he reports he finds the Chlorpromazine to be more helpful with sleep-discussed using one or the other-he chooses Chlorpromazine 50 mg hs and asks that it be scheduled. Discussed that this may not cover mood as well. Will continue to assess. Pleased with effects upon quality of sleep. Medication Compliance: Yes Side effects from medications: No Attending Groups: Intermittent Review of Systems Acute medical concerns: No Medical Review of Systems: unchanged Review of Systems Reports behavioral changes Psychiatric: Reports abnormal sleep pattern, Reports anxiety, Reports behavioral changes, Reports depression, Reports difficulty concentrating, Reports auditory hallucinations, Reports irritability, Reports anhedonia, Reports mood swings, Reports paranoia and Reports visual hallucinations Mental Status Exam Mental Status Exam Patient Appearance: Appropriate Patient Orientation: Person, Place, Time and Situation Level of Consciousness: Alert Patient Behavior: Talkative and Good Eye Contact Mood Description: Labile Affect Description: Labile Patient Cognition Impaired: No Ability to Follow Directions: Good Speech Pattern: Spontaneous Speech Memory Description: Remote Impaired and Episodic Impaired Hallucinations: Auditory and Visual Delusions: Paranoid Ideation and Present Thought Process: Illogical and Distracted Thought Content: positive for [place], positive for Circumstantial, positive for Perseveration and positive for Preoccupation Depressive Symptoms: Increased Anxiety, Insomnia, Diff. Making Decisions, Difficulty Sleeping, Hopelessness and Difficulty Concentrating Abnormal Motor Activity Signs and Symptoms: Restlessness Judgement: Poor Diagnostics Vital Signs (24Hr): Vital Signs - 24 hr 05/31/21 18:00 06/01/21 06:00 Temperature 98.5 F 98.1 F Pulse Rate 78 92 Respiratory Rate 18 Blood Pressure 112/58 L 108/68 Pulse Oximetry 98 98 BMI result Body Mass Index 26.4 Labs Results: 06/01/21 07:51 06/01/21 07:51 Labs: Laboratory Results - last 48 hr 06/01/21 06/01/21 06/01/21 07:51 07:51 07:51 WBC 7.2 RBC 5.46 Hgb 14.6 Hct 44.6 MCV 81.7 MCH 26.7 L MCHC 32.7 RDW 13.5 Plt Count 208 MPV 9.6 Immature Gran % (Auto) 1.7 H Neut % (Auto) 70.5 Lymph % (Auto) 19.9 L [place] % (Auto) 6.8 Eos % (Auto) 0.8 Baso % (Auto) 0.3 Lymph # (Auto) 1.4 [place] # (Auto) 0.5 Eos # (Auto) 0.1 Baso # (Auto) 0.0 Abs Immat Gran (auto) 0.12 H Absolute Neuts (auto) 5.1 Absolute Nucleated RBC 0.000 Nucleated RBC % (auto) 0.0 Sodium 140 Potassium 4.0 Chloride 107 Carbon Dioxide 27 Anion Gap 10 L BUN 18 H Creatinine 1.10 Estim Creat Clear Calc 93.7 Estimated GFR > 60 Random Glucose 101 Estimat Average Glucose 100 Hemoglobin A1c % 5.1 Calcium 9.5 Total Bilirubin 0.4 AST 22 ALT 31 Alkaline Phosphatase 49 Total Protein 6.7 Albumin 4.2 Triglycerides 69 Cholesterol 166 D LDL Cholesterol, Calc 94 HDL Cholesterol 59 D Imaging Radiology Impressions: ITS Impressions Face X-Ray 04/21/21 15:29 IMPRESSION: No fracture seen. Orbit X-Ray 04/21/21 15:29 IMPRESSION: No fracture seen. Cervical Spine CT 04/24/21 22:24 IMPRESSION: No evidence of acute intracranial abnormalities. No evidence of acute maxillofacial fractures. However, evaluation of the inferior mandibular body is limited due to motion and although no definite fractures or surrounding soft tissue thickening/hematoma are identified, clinical correlation for pain/tenderness in the inferior mandible should be obtained as this is suboptimally assessed in this study. No acute cervical fractures or malalignment. Face CT 04/24/21 22:24 IMPRESSION: No evidence of acute intracranial abnormalities. No evidence of acute maxillofacial fractures. However, evaluation of the inferior mandibular body is limited due to motion and although no definite fractures or surrounding soft tissue thickening/hematoma are identified, clinical correlation for pain/tenderness in the inferior mandible should be obtained as this is suboptimally assessed in this study. No acute cervical fractures or malalignment. Head CT 04/24/21 22:24 IMPRESSION: No evidence of acute intracranial abnormalities. No evidence of acute maxillofacial fractures. However, evaluation of the inferior mandibular body is limited due to motion and although no definite fractures or surrounding soft tissue thickening/hematoma are identified, clinical correlation for pain/tenderness in the inferior mandible should be obtained as this is suboptimally assessed in this study. No acute cervical fractures or malalignment. Medications Medications Current Medications Acetaminophen (Acetaminophen 325 Mg Tablet) 650 mg PO Q6H PRN PRN Reason: Headache/Pain Mild Scale (1-3) Last Admin: 05/21/21 21:14 Dose: 650 mg Documented by: Al Hydroxide/Mg Hydroxide (Magnesium Hydrox/Alum Hydrox 30 Ml Oral.Susp) 30 ml PO Q6H PRN PRN Reason: Heartburn/Nausea Last Admin: 05/27/21 00:13 Dose: 30 ml Documented by: Benztropine Mesylate (Benztropine Mesylate 1 Mg Tablet) 1 mg PO TID PRN PRN Reason: Extrapyramidal Effects Chlorpromazine HCl (Chlorpromazine Hcl 100 Mg Tablet) 100 mg PO BID PRN PRN Reason: psychotic agitation Last Admin: 05/31/21 20:29 Dose: 100 mg Documented by: Chlorpromazine HCl (Chlorpromazine Hcl 100 Mg Tablet) 50 mg PO BEDTIME [facility] Diphenhydramine HCl (Diphenhydramine Hcl 25 Mg Tablet) 50 mg PO Q4H PRN PRN Reason: agitation Last Admin: 05/22/21 00:07 Dose: 50 mg Documented by: Hydroxyzine HCl (Hydroxyzine Hcl 25 Mg Tablet) 25 mg PO QID PRN PRN Reason: Anxiety Last Admin: 05/21/21 21:14 Dose: 25 mg Documented by: Ibuprofen (Ibuprofen 600 Mg Tablet) 600 mg PO Q4H PRN PRN Reason: Pain, Moderate (Pain Scale 4-6 Last Admin: 05/22/21 07:13 Dose: 600 mg Documented by: Magnesium Hydroxide (Milk Of Magnesia 30 Ml Oral.Susp) 30 ml PO DAILY PRN PRN Reason: Constipation Multi-Ingred Cream/Lotion/Oil/Oint (Mineral Oil/Petrolatum,White 106 Gm Tube) 1 appl TOPICAL TID [facility]; Protocol Last Admin: 06/01/21 14:07 Dose: Not Given Documented by: Nicotine (Nicotine 21 Mg Patch.Td24) 21 mg TRANSDERMA DAILY PRN PRN Reason: smoking cessation Nicotine Polacrilex (Nicotine Polacrilex 2 Mg Gum) 4 mg BUCCAL Q2H PRN PRN Reason: Nicotine Cravings Paliperidone (Paliperidone Er 6 Mg Tab.Er.24) 6 mg PO DAILY [facility] Last Admin: 06/01/21 08:18 Dose: 6 mg Documented by: Polyethylene Glycol (Polyethylene Glycol 3350 17 Gm Powd.Pack) 17 gm PO DAILY PRN PRN Reason: CONSTIPATION Senna (Sennosides 8.6 Mg Tablet) 17.2 mg PO BEDTIME [facility] Last Admin: 05/31/21 20:30 Dose: Not Given Documented by: Trazodone HCl (Trazodone Hcl 50 Mg Tablet) 50 mg PO BEDTIME PRN PRN Reason: Insomnia Allergies Allergies Allergy/AdvReac Type Severity Reaction Status Date / Time haloperidol [From HALDOL] Allergy Severe DYSTONIA Verified 04/19/21 06:28 ziprasidone [From GEODON] Allergy Severe DYSTONIA Verified 04/19/21 06:28 Assessment & Plan Assessment & Plan (1) Schizoaffective disorder, bipolar type: Status: Acute Code(s): F25.0 - Schizoaffective disorder, bipolar type Assessment and Plan: Continues with psychosis, aggressive agitation, lability of mood. Requiring restraint. Thorazine 50 mg tid with IM back up as needed Thorazine 100 mg bid prn with IM back up as needed. Initially, pt and I discussed an Abilify Maintena trial to address symptoms. From observation of pt's intensity of psychosis, agitation, lability, this does not appear to be the best agent to meet this level of symptom intensity. Will discuss with pt an Invega trial with transition to Sustenna during his hospitalization with initiation. 05/07/21 Invega 6 mg 05/08. Continue Thorazine prn. (pt required IM back up on 05/07/21) 05/08/21 Continue current plan of care. 05/09/21: Ct w plan per Wolff order 05/10/21: Ct Rx plan 05/11/21: Continue Invega titration. 05/12/21 Pt tolerating Invega. Will begin Sustenna on 05/13. 05/13/21 Sustanna given, tolerated. Support, educate, integrate into milieu for added support. 05/14/21 Tolerating Sustenna. Calmer, more focused today. Asking for help with legal issues, attempting to organize his responsibilities 05/15/21 Continue current plan. 05/16/21 Continue current plan 05/17/21 Continue current plan 05/18/21 Follow up with probation-pt agrees and signed JEANNETTE Second Sustenna injection 05/21. Tolerating with breakthrough sx with PO as well. 05/19/21 Team/Peers report evening/night agitation Depakote 500 mg ER HS 05/20/21 Continue current regime Scheduled Invega injection for 05/21 Continue to attempt alliance building, education, support 05/21/21 Continue current regimen, no changes to medication, will monitor for benefit on invega sustenna COKER. Still taking PO invega. Has not been taking PO depakote, so will not order a level. 05/22/21 Continue current regimen, pt is tolerating invega sustenna well. Not taking depakote. Appropriate on the unit. 05/23/21: No changes to above med plan. 05/24/21: No changes to above plan, continue PO invega until invega sustenna reaches steady state. Pt somewhat intrusive with high fiving staff but redirectable. 05/26/21: Continue current plan. Vibra application 05/27/21 Pt has been refusing Depakote at hs with resulting poor sleep. Will give Chlorpromazine IM if Depakote is refused. 05/28/21 Continue current plan Labs 06/01/20. 05/29/21 Continue with current plan 05/30/21 continue with current treatment plan 05/31/21 continue with current treatment plan 06/01/20 Discontinue Depakote-pt prefers Chlorpromazine at HS-50 mg as he reports it is more helpful with sleep quality assistance. I spent 25 minutes with the patient and/or on the patient floor today, greater than?50% of which was spent counseling/coordinating care. Patient educated on: medication risk/benefits and therapeutic strategies Informed Consent: understands and further education needed Reason for contiued inpatient stay Substantial Risk for: inability to function and rapid decompensation
[2021-06-01 18:00] VITALS: BP 131/82; PULSE 101; RESP 18; TEMP 36.4; O2SAT 98
[2021-06-01] MEDS: chlorproMAZINE HCl 100 MG TABLET 50 MG PO (20:16)
[2021-06-01] MEDS: Mineral Oil/Petrolatum,White 106 GM Tube 1 APPL TOPICAL (23:06)
[2021-06-02 06:00] VITALS: BP 114/65; PULSE 96; RESP 17; TEMP 36.4; O2SAT 100
[2021-06-02] MEDS: Paliperidone ER 6 MG TAB.ER.24 PO (08:33)
[2021-06-02 18:55] VITALS: BP 106/63; PULSE 85; TEMP 37.2
--- NOTE | 2021-06-02 20:07 | P.PNPSI_ITS ---
Subjective Subjective Date of Service: 06/02/21 Reason For Visit: Schizophrenia Subjective Notes: Section 8 Healthcare Proxy: No Guardianship: No Medical Problems Affecting Mental Status: No Interim History: I met with my mom. I don't want to be here I need an advocate to leave. I don't want Vibra. I want and deserve to be free . I am not ill. Medication Compliance: Yes Side effects from medications: No Attending Groups: Intermittent Review of Systems Acute medical concerns: No Review of Systems Reports behavioral changes Psychiatric: Reports anxiety, Reports behavioral changes, Reports depression, Reports difficulty concentrating, Reports hopelessness, Reports irritability, Reports anhedonia, Reports mood swings and Reports paranoia Mental Status Exam Mental Status Exam Patient Appearance: Appropriate Patient Orientation: Person, Place, Time and Situation Level of Consciousness: Alert Patient Behavior: Talkative, Good Eye Contact and Crying Mood Description: Labile Affect Description: Labile Patient Cognition Impaired: No Ability to Follow Directions: Good Speech Pattern: Spontaneous Speech Memory Description: Remote Impaired and Episodic Impaired Hallucinations: Auditory and Visual Delusions: Paranoid Ideation and Present Thought Process: Illogical and Distracted Thought Content: positive for [place], positive for Circumstantial, positive for Perseveration and positive for Preoccupation Depressive Symptoms: Increased Anxiety, Insomnia, Diff. Making Decisions, Diffic ulty Sleeping, Hopelessness and Difficulty Concentrating Abnormal Motor Activity Signs and Symptoms: Restlessness Judgement: Poor Diagnostics Vital Signs (24Hr): Vital Signs - 24 hr 06/02/21 06:00 Temperature 97.6 F Pulse Rate 96 Respiratory Rate 17 Blood Pressure 114/65 Pulse Oximetry 100 BMI result Body Mass Index 26.4 Labs Results: 06/01/21 07:51 06/01/21 07:51 Labs: Laboratory Results - last 48 hr 06/01/21 06/01/21 06/01/21 07:51 07:51 07:51 WBC 7.2 RBC 5.46 Hgb 14.6 Hct 44.6 MCV 81.7 MCH 26.7 L MCHC 32.7 RDW 13.5 Plt Count 208 MPV 9.6 Immature Gran % (Auto) 1.7 H Neut % (Auto) 70.5 Lymph % (Auto) 19.9 L [place] % (Auto) 6.8 Eos % (Auto) 0.8 Baso % (Auto) 0.3 Lymph # (Auto) 1.4 [place] # (Auto) 0.5 Eos # (Auto) 0.1 Baso # (Auto) 0.0 Abs Immat Gran (auto) 0.12 H Absolute Neuts (auto) 5.1 Absolute Nucleated RBC 0.000 Nucleated RBC % (auto) 0.0 Sodium 140 Potassium 4.0 Chloride 107 Carbon Dioxide 27 Anion Gap 10 L BUN 18 H Creatinine 1.10 Estim Creat Clear Calc 93.7 Estimated GFR > 60 Random Glucose 101 Estimat Average Glucose 100 Hemoglobin A1c % 5.1 Calcium 9.5 Total Bilirubin 0.4 AST 22 ALT 31 Alkaline Phosphatase 49 Total Protein 6.7 Albumin 4.2 Triglycerides 69 Cholesterol 166 D LDL Cholesterol, Calc 94 HDL Cholesterol 59 D Imaging Radiology Impressions: ITS Impressions Face X-Ray 04/21/21 15:29 IMPRESSION: No fracture seen. Orbit X-Ray 04/21/21 15:29 IMPRESSION: No fracture seen. Cervical Spine CT 04/24/21 22:24 IMPRESSION: No evidence of acute intracranial abnormalities. No evidence of acute maxillofacial fractures. However, evaluation of the inferior mandibular body is limited due to motion and although no definite fractures or surrounding soft tissue thickening/hematoma are identified, clinical correlation for pain/tenderness in the inferior mandible should be obtained as this is suboptimally assessed in this study. No acute cervical fractures or malalignment. Face CT 04/24/21 22:24 IMPRESSION: No evidence of acute intracranial abnormalities. No evidence of acute maxillofacial fractures. However, evaluation of the inferior mandibular body is limited due to motion and although no definite fractures or surrounding soft tissue thickening/hematoma are identified, clinical correlation for pain/tenderness in the inferior mandible should be obtained as this is suboptimally assessed in this study. No acute cervical fractures or malalignment. Head CT 04/24/21 22:24 IMPRESSION: No evidence of acute intracranial abnormalities. No evidence of acute maxillofacial fractures. However, evaluation of the inferior mandibular body is limited due to motion and although no definite fractures or surrounding soft tissue thickening/hematoma are identified, clinical correlation for pain/tenderness in the inferior mandible should be obtained as this is suboptimally assessed in this study. No acute cervical fractures or malalignment. Medications Medications Current Medications Acetaminophen (Acetaminophen 325 Mg Tablet) 650 mg PO Q6H PRN PRN Reason: Headache/Pain Mild Scale (1-3) Last Admin: 05/21/21 21:14 Dose: 650 mg Documented by: Al Hydroxide/Mg Hydroxide (Magnesium Hydrox/Alum Hydrox 30 Ml Oral.Susp) 30 ml PO Q6H PRN PRN Reason: Heartburn/Nausea Last Admin: 05/27/21 00:13 Dose: 30 ml Documented by: Benztropine Mesylate (Benztropine Mesylate 1 Mg Tablet) 1 mg PO TID PRN PRN Reason: Extrapyramidal Effects Chlorpromazine HCl (Chlorpromazine Hcl 100 Mg Tablet) 100 mg PO BID PRN PRN Reason: psychotic agitation Last Admin: 05/31/21 20:29 Dose: 100 mg Documented by: Chlorpromazine HCl (Chlorpromazine Hcl 100 Mg Tablet) 50 mg PO BEDTIME [facility] Last Admin: 06/01/21 20:16 Dose: 50 mg Documented by: Diphenhydramine HCl (Diphenhydramine Hcl 25 Mg Tablet) 50 mg PO Q4H PRN PRN Reason: agitation Last Admin: 05/22/21 00:07 Dose: 50 mg Documented by: Hydroxyzine HCl (Hydroxyzine Hcl 25 Mg Tablet) 25 mg PO QID PRN PRN Reason: Anxiety Last Admin: 05/21/21 21:14 Dose: 25 mg Documented by: Ibuprofen (Ibuprofen 600 Mg Tablet) 600 mg PO Q4H PRN PRN Reason: Pain, Moderate (Pain Scale 4-6 Last Admin: 05/22/21 07:13 Dose: 600 mg Documented by: Magnesium Hydroxide (Milk Of Magnesia 30 Ml Oral.Susp) 30 ml PO DAILY PRN PRN Reason: Constipation Multi-Ingred Cream/Lotion/Oil/Oint (Mineral Oil/Petrolatum,White 106 Gm Tube) 1 appl TOPICAL TID [facility]; Protocol Last Admin: 06/02/21 14:03 Dose: Not Given Documented by: Nicotine (Nicotine 21 Mg Patch.Td24) 21 mg TRANSDERMA DAILY PRN PRN Reason: smoking cessation Nicotine Polacrilex (Nicotine Polacrilex 2 Mg Gum) 4 mg BUCCAL Q2H PRN PRN Reason: Nicotine Cravings Paliperidone (Paliperidone Er 6 Mg Tab.Er.24) 6 mg PO DAILY [facility] Last Admin: 06/02/21 08:33 Dose: 6 mg Documented by: Polyethylene Glycol (Polyethylene Glycol 3350 17 Gm Powd.Pack) 17 gm PO DAILY PRN PRN Reason: CONSTIPATION Senna (Sennosides 8.6 Mg Tablet) 17.2 mg PO BEDTIME [facility] Last Admin: 06/01/21 20:17 Dose: Not Given Documented by: Trazodone HCl (Trazodone Hcl 50 Mg Tablet) 50 mg PO BEDTIME PRN PRN Reason: Insomnia Allergies Allergies Allergy/AdvReac Type Severity Reaction Status Date / Time haloperidol [From HALDOL] Allergy Severe DYSTONIA Verified 04/19/21 06:28 ziprasidone [From GEODON] Allergy Severe DYSTONIA Verified 04/19/21 06:28 Assessment & Plan Assessment & Plan (1) Schizoaffective disorder, bipolar type: Status: Acute Code(s): F25.0 - Schizoaffective disorder, bipolar type Assessment and Plan: Continues with psychosis, aggressive agitation, lability of mood. Requiring restraint. Thorazine 50 mg tid with IM back up as needed Thorazine 100 mg bid prn with IM back up as needed. Initially, pt and I discussed an Abilify Maintena trial to address symptoms. From observation of pt's intensity of psychosis, agitation, lability, this does not appear to be the best agent to meet this level of symptom intensity. Will discuss with pt an Invega trial with transition to Sustenna during his hospitalization with initiation. 05/07/21 Invega 6 mg 05/08. Continue Thorazine prn. (pt required IM back up on 05/07/21) 05/08/21 Continue current plan of care. 05/09/21: Ct w plan per [facility] order 05/10/21: Ct Rx plan 05/11/21: Continue Invega titration. 05/12/21 Pt tolerating Invega. Will begin Sustenna on 05/13. 05/13/21 Sustanna given, tolerated. Support, educate, integrate into milieu for added support. 05/14/21 Tolerating Sustenna. Calmer, more focused today. Asking for help with legal issues, attempting to organize his responsibilities 05/15/21 Continue current plan. 05/16/21 Continue current plan 05/17/21 Continue current plan 05/18/21 Follow up with probation-pt agrees and signed JEANNETTE Second Sustenna injection 05/21. Tolerating with breakthrough sx with PO as well. 05/19/21 Team/Peers report evening/night agitation Depakote 500 mg ER HS 05/20/21 Continue current regime Scheduled Invega injection for 05/21 Continue to attempt alliance building, education, support 05/21/21 Continue current regimen, no changes to medication, will monitor for benefit on invega sustenna COKER. Still taking PO invega. Has not been taking PO depakote, so will not order a level. 05/22/21 Continue current regimen, pt is tolerating invega sustenna well. Not taking depakote. Appropriate on the unit. 05/23/21: No changes to above med plan. 05/24/21: No changes to above plan, continue PO invega until invega sustenna reaches steady state. Pt somewhat intrusive with high fiving staff but redirectable. 05/26/21: Continue current plan. Vibra application 05/27/21 Pt has been refusing Depakote at hs with resulting poor sleep. Will give Chlorpromazine IM if Depakote is refused. 05/28/21 Continue current plan Labs 06/01/20. 05/29/21 Continue with current plan 05/30/21 continue with current treatment plan 05/31/21 continue with current treatment plan 06/02/21 Continue current plan. Support/educate. V[facility]ra application. I spent 35 minutes with the patient and/or on the patient floor today, greater than?50% of which was spent counseling/coordinating care. Patient educated on: therapeutic strategies Informed Consent: does not understand Reason for contiued inpatient stay Substantial Risk for: harm to self, harm to others, inability to function and rapid decompensation
[2021-06-02] MEDS: chlorproMAZINE HCl 100 MG TABLET 50 MG PO (20:28)
[2021-06-02] MEDS: Mineral Oil/Petrolatum,White 106 GM Tube 1 APPL TOPICAL (20:32)
[2021-06-03 06:00] VITALS: BP 120/79; PULSE 107; RESP 18; TEMP 37.1; O2SAT 98
[2021-06-03] MEDS: Paliperidone ER 6 MG TAB.ER.24 PO (08:50)
--- NOTE | 2021-06-03 16:50 | HO.PSYCHPN ---
Subjective Subjective Date of Service: 06/03/21 Reason For Visit: Schizophrenia Subjective Notes: Section 8 Healthcare Proxy: No Guardianship: No Medical Problems Affecting Mental Status: No Interim History: I need you to find Ayna Cortez-she is my girlfriend-she is 28 or 35 and lives in [place]. Also, please call my chief data officer. I am calling my transport engineer to leave here. Met with pt to discuss concerns and with pt and Tanisha LUND to review rationale for admission, commitment, illness, symptoms of concern and rationale for Vibra application. Pt struggled with this information and finally left our meeting with anger, energy and disbelief. Refuses further intervention- I am leaving. Medication Compliance: Yes Side effects from medications: No Attending Groups: Intermittent Review of Systems Acute medical concerns: No Review of Systems Reports behavioral changes Psychiatric: Reports anxiety, Reports behavioral changes, Reports depression, Reports difficulty concentrating, Reports hopelessness, Reports irritability, Reports anhedonia, Reports mood swings and Reports paranoia Mental Status Exam Mental Status Exam Patient Appearance: Appropriate Patient Orientation: Person, Place, Time and Situation Level of Consciousness: Alert Patient Behavior: Talkative, Good Eye Contact and Crying Mood Description: Labile Affect Description: Labile Patient Cognition Impaired: No Ability to Follow Directions: Good Speech Pattern: Spontaneous Speech Memory Description: Remote Impaired and Episodic Impaired Hallucinations: Auditory and Visual Delusions: Paranoid Ideation and Present Thought Process: Illogical and Distracted Thought Content: positive for [place], positive for Circum[place], positive for [place] and positive for Preoccupation Depressive Symptoms: Increased Anxiety, Insomnia, Diff. Making Decisions, Difficulty Sleeping, Hopelessness and Difficulty Concentrating Abnormal Motor Activity Signs and Symptoms: Restlessness Judgement: Poor Diagnostics Vital Signs (24Hr): Vital Signs - 24 hr 06/02/21 18:55 06/03/21 06:00 Temperature 98.9 F 98.7 F Pulse Rate 85 107 H Respiratory Rate 18 Blood Pressure 106/63 120/79 Pulse Oximetry 98 BMI result Body Mass Index 26.4 Labs Results: 06/01/21 07:51 06/01/21 07:51 Imaging Radiology Impressions: ITS Impressions Face X-Ray 04/21/21 15:29 IMPRESSION: No fracture seen. Orbit X-Ray 04/21/21 15:29 IMPRESSION: No fracture seen. Cervical Spine CT 04/24/21 22:24 IMPRESSION: No evidence of acute intracranial abnormalities. No evidence of acute maxillofacial fractures. However, evaluation of the inferior mandibular body is limited due to motion and although no definite fractures or surrounding soft tissue thickening/hematoma are identified, clinical correlation for pain/tenderness in the inferior mandible should be obtained as this is suboptimally assessed in this study. No acute cervical fractures or malalignment. Face CT 04/24/21 22:24 IMPRESSION: No evidence of acute intracranial abnormalities. No evidence of acute maxillofacial fractures. However, evaluation of the inferior mandibular body is limited due to motion and although no definite fractures or surrounding soft tissue thickening/hematoma are identified, clinical correlation for pain/tenderness in the inferior mandible should be obtained as this is suboptimally assessed in this study. No acute cervical fractures or malalignment. Head CT 04/24/21 22:24 IMPRESSION: No evidence of acute intracranial abnormalities. No evidence of acute maxillofacial fractures. However, evaluation of the inferior mandibular body is limited due to motion and although no definite fractures or surrounding soft tissue thickening/hematoma are identified, clinical correlation for pain/tenderness in the inferior mandible should be obtained as this is suboptimally assessed in this study. No acute cervical fractures or malalignment. Medications Medications Current Medications Acetaminophen (Acetaminophen 325 Mg Tablet) 650 mg PO Q6H PRN PRN Reason: Headache/Pain Mild Scale (1-3) Last Admin: 05/21/21 21:14 Dose: 650 mg Documented by: Al Hydroxide/Mg Hydroxide (Magnesium Hydrox/Alum Hydrox 30 Ml Oral.Susp) 30 ml PO Q6H PRN PRN Reason: Heartburn/Nausea Last Admin: 05/27/21 00:13 Dose: 30 ml Documented by: Benztropine Mesylate (Benztropine Mesylate 1 Mg Tablet) 1 mg PO TID PRN PRN Reason: Extrapyramidal Effects Chlorpromazine HCl (Chlorpromazine Hcl 100 Mg Tablet) 100 mg PO BID PRN PRN Reason: psychotic agitation Last Admin: 05/31/21 20:29 Dose: 100 mg Documented by: Chlorpromazine HCl (Chlorpromazine Hcl 100 Mg Tablet) 50 mg PO BEDTIME [facility] Last Admin: 06/02/21 20:28 Dose: 50 mg Documented by: Diphenhydramine HCl (Diphenhydramine Hcl 25 Mg Tablet) 50 mg PO Q4H PRN PRN Reason: agitation Last Admin: 05/22/21 00:07 Dose: 50 mg Documented by: Hydroxyzine HCl (Hydroxyzine Hcl 25 Mg Tablet) 25 mg PO QID PRN PRN Reason: Anxiety Last Admin: 05/21/21 21:14 Dose: 25 mg Documented by: Ibuprofen (Ibuprofen 600 Mg Tablet) 600 mg PO Q4H PRN PRN Reason: Pain, Moderate (Pain Scale 4-6 Last Admin: 05/22/21 07:13 Dose: 600 mg Documented by: Magnesium Hydroxide (Milk Of Magnesia 30 Ml Oral.Susp) 30 ml PO DAILY PRN PRN Reason: Constipation Multi-Ingred Cream/Lotion/Oil/Oint (Mineral Oil/Petrolatum,White 106 Gm Tube) 1 appl TOPICAL TID [facility]; Protocol Last Admin: 06/03/21 14:56 Dose: Not Given Documented by: Nicotine (Nicotine 21 Mg Patch.Td24) 21 mg TRANSDERMA DAILY PRN PRN Reason: smoking cessation Nicotine Polacrilex (Nicotine Polacrilex 2 Mg Gum) 4 mg BUCCAL Q2H PRN PRN Reason: Nicotine Cravings Paliperidone (Paliperidone Er 6 Mg Tab.Er.24) 6 mg PO DAILY [facility] Last Admin: 06/03/21 08:50 Dose: 6 mg Documented by: Polyethylene Glycol (Polyethylene Glycol 3350 17 Gm Powd.Pack) 17 gm PO DAILY PRN PRN Reason: CONSTIPATION Senna (Sennosides 8.6 Mg Tablet) 17.2 mg PO BEDTIME [facility] Last Admin: 06/02/21 20:33 Dose: Not Given Documented by: Trazodone HCl (Trazodone Hcl 50 Mg Tablet) 50 mg PO BEDTIME PRN PRN Reason: Insomnia Allergies Allergies Allergy/AdvReac Type Severity Reaction Status Date / Time haloperidol [From HALDOL] Allergy Severe DYSTONIA Verified 04/19/21 06:28 ziprasidone [From GEODON] Allergy Severe DYSTONIA Verified 04/19/21 06:28 Assessment & Plan Assessment & Plan (1) Schizoaffective disorder, bipolar type: Status: Acute Code(s): F25.0 - Schizoaffective disorder, bipolar type Assessment and Plan: Continues with psychosis, aggressive agitation, lability of mood. Requiring restraint. Thorazine 50 mg tid with IM back up as needed Thorazine 100 mg bid prn with IM back up as needed. Initially, pt and I discussed an Abilify Maintena trial to address symptoms. From observation of pt's intensity of psychosis, agitation, lability, this does not appear to be the best agent to meet this level of symptom intensity. Will discuss with pt an Invega trial with transition to Sustenna during his hospitalization with initiation. 05/07/21 Invega 6 mg 05/08. Continue Thorazine prn. (pt required IM back up on 05/07/21) 05/08/21 Continue current plan of care. 05/09/21: Ct w plan per [facility] order 05/10/21: Ct Rx plan 05/11/21: Continue Invega titration. 05/12/21 Pt tolerating Invega. Will begin Sustenna on 05/13. 05/13/21 Sustanna given, tolerated. Support, educate, integrate into milieu for added support. 05/14/21 Tolerating Sustenna. Calmer, more focused today. Asking for help with legal issues, attempting to organize his responsibilities 05/15/21 Continue current plan. 05/16/21 Continue current plan 05/17/21 Continue current plan 05/18/21 Follow up with probation-pt agrees and signed JEANNETTE Second Sustenna injection 05/21. Tolerating with breakthrough sx with PO as well. 05/19/21 Team/Peers report evening/night agitation Depakote 500 mg ER HS 05/20/21 Continue current regime Scheduled Invega injection for 05/21 Continue to attempt alliance building, education, support 05/21/21 Continue current regimen, no changes to medication, will monitor for benefit on invega sustenna COKER. Still taking PO invega. Has not been taking PO depakote, so will not order a level. 05/22/21 Continue current regimen, pt is tolerating invega sustenna well. Not taking depakote. Appropriate on the unit. 05/23/21: No changes to above med plan. 05/24/21: No changes to above plan, continue PO invega until invega sustenna reaches steady state. Pt somewhat intrusive with high fiving staff but redirectable. 05/26/21: Continue current plan. Vibra application 05/27/21 Pt has been refusing Depakote at hs with resulting poor sleep. Will give Chlorpromazine IM if Depakote is refused. 05/28/21 Continue current plan Labs 06/01/20. 05/29/21 Continue with current plan 05/30/21 continue with current treatment plan 05/31/21 continue with current treatment plan 06/01/21 Discontinue Depakote-pt prefers Chlorpromazine at HS-50 mg as he reports it is more helpful with sleep quality assistance. 06/03/21: Education, support. Vibra application. I spent 70 minutes with the patient and/or on the patient floor today, greater than?50% of which was spent counseling/coordinating care. Patient educated on: diagnosis, medication risk/benefits, therapeutic strategies and other Informed Consent: does not understand and further education needed Reason for contiued inpatient stay Substantial Risk for: harm to self, harm to others, inability to function and rapid decompensation
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
[2021-06-03 18:00] VITALS: BP 112/58; TEMP 37.3; O2SAT 94
[2021-06-03] MEDS: Sennosides 8.6 MG TABLET 17.2 MG PO (20:44)
[2021-06-03] MEDS: chlorproMAZINE HCl 100 MG TABLET PO (20:44)
[2021-06-03] MEDS: chlorproMAZINE HCl 25 MG TABLET 50 MG PO (23:04)
[2021-06-04 05:43] VITALS: BP 118/77; PULSE 102; RESP 18; TEMP 36.6; O2SAT 97
[2021-06-04 06:00] VITALS: BP 117/73; PULSE 95; RESP 16; TEMP 36.9; O2SAT 100
[2021-06-04] MEDS: Paliperidone ER 6 MG TAB.ER.24 PO (08:32)
--- NOTE | 2021-06-04 12:51 | P.PNPSI_ITS ---
Subjective Subjective Date of Service: 06/04/21 Reason For Visit: Schizophrenia Subjective Notes: Section 8 Healthcare Proxy: No Guardianship: No Medical Problems Affecting Mental Status: No Interim History: Labile, angry, accusatory, delusional, paranoid Demanding transfer to [facility] Demanding discharge Discussed rationale for commitment and for application for [facility] admission. Pt is unable to hear this today. Left our meetings abruptly. Apologetic this evening. Medication Compliance: Yes Side effects from medications: No Attending Groups: Intermittent Review of Systems Acute medical concerns: No Medical Review of Systems: unchanged Review of Systems Reports behavioral changes Psychiatric: Reports anxiety, Reports behavioral changes, Reports depression, Reports difficulty concentrating, Reports hopelessness, Reports irritability, Reports anhedonia, Reports mood swings and Reports paranoia Mental Status Exam Mental Status Exam Patient Appearance: Appropriate Patient Orientation: Person, Place, Time and Situation Level of Consciousness: Alert Patient Behavior: Talkative, Good Eye Contact and Crying Mood Description: Labile Affect Description: Labile Patient Cognition Impaired: No Ability to Follow Directions: Good Speech Pattern: Spontaneous Speech Memory Description: Remote Impaired and Episodic Impaired Hallucinations: Auditory and Visual Delusions: Paranoid Ideation and Present Thought Process: Illogical and Distracted Thought Content: positive for [place], positive for Circumstantial, positive for Perseveration and positive for Preoccupation Depressive Symptoms: Increased Anxiety, Insomnia, Diff. Making Decisions, Difficulty Sleeping, Hopelessness and Difficulty Concentrating Abnormal Motor Activity Signs and Symptoms: Restlessness Judgement: Poor Diagnostics Vital Signs (24Hr): Vital Signs - 24 hr 06/03/21 18:00 06/04/21 05:43 06/04/21 06:00 Temperature 99.1 F 97.9 F 98.4 F Pulse Rate 102 H 95 Respiratory Rate 18 16 Blood Pressure 112/58 L 118/77 117/73 Pulse Oximetry 94 97 100 BMI result Body Mass Index 26.4 Labs Results: 06/01/21 07:51 06/01/21 07:51 Imaging Radiology Impressions: ITS Impressions Face X-Ray 04/21/21 15:29 IMPRESSION: No fracture seen. Orbit X-Ray 04/21/21 15:29 IMPRESSION: No fracture seen. Cervical Spine CT 04/24/21 22:24 IMPRESSION: No evidence of acute intracranial abnormalities. No evidence of acute maxillofacial fractures. However, evaluation of the inferior mandibular body is limited due to motion and although no definite fractures or surrounding soft tissue thickening/hematoma are identified, clinical correlation for pain/tenderness in the inferior mandible should be obtained as this is suboptimally assessed in this study. No acute cervical fractures or malalignment. Face CT 04/24/21 22:24 IMPRESSION: No evidence of acute intracranial abnormalities. No evidence of acute maxillofacial fractures. However, evaluation of the inferior mandibular body is limited due to motion and although no definite fractures or surrounding soft tissue thickening/hematoma are identified, clinical correlation for pain/tenderness in the inferior mandible should be obtained as this is suboptimally assessed in this study. No acute cervical fractures or malalignment. Head CT 04/24/21 22:24 IMPRESSION: No evidence of acute intracranial abnormalities. No evidence of acute maxillofacial fractures. However, evaluation of the inferior mandibular body is limited due to motion and although no definite fractures or surrounding soft tissue thickening/hematoma are identified, clinical correlation for pain/tenderness in the inferior mandible should be obtained as this is suboptimally assessed in this study. No acute cervical fractures or malalignment. Medications Medications Current Medications Acetaminophen (Acetaminophen 325 Mg Tablet) 650 mg PO Q6H PRN PRN Reason: Headache/Pain Mild Scale (1-3) Last Admin: 05/21/21 21:14 Dose: 650 mg Documented by: Al Hydroxide/Mg Hydroxide (Magnesium Hydrox/Alum Hydrox 30 Ml Oral.Susp) 30 ml PO Q6H PRN PRN Reason: Heartburn/Nausea Last Admin: 05/27/21 00:13 Dose: 30 ml Documented by: Benztropine Mesylate (Benztropine Mesylate 1 Mg Tablet) 1 mg PO TID PRN PRN Reason: Extrapyramidal Effects Chlorpromazine HCl (Chlorpromazine Hcl 100 Mg Tablet) 100 mg PO BID PRN PRN Reason: psychotic agitation Last Admin: 06/03/21 20:44 Dose: 100 mg Documented by: Chlorpromazine HCl (Chlorpromazine Hcl 25 Mg Tablet) 50 mg PO BEDTIME MARGAUX Last Admin: 06/03/21 23:04 Dose: 50 mg Documented by: Diphenhydramine HCl (Diphenhydramine Hcl 25 Mg Tablet) 50 mg PO Q4H PRN PRN Reason: agitation Last Admin: 05/22/21 00:07 Dose: 50 mg Documented by: Hydroxyzine HCl (Hydroxyzine Hcl 25 Mg Tablet) 25 mg PO QID PRN PRN Reason: Anxiety Last Admin: 05/21/21 21:14 Dose: 25 mg Documented by: Ibuprofen (Ibuprofen 600 Mg Tablet) 600 mg PO Q4H PRN PRN Reason: Pain, Moderate (Pain Scale 4-6 Last Admin: 05/22/21 07:13 Dose: 600 mg Documented by: Magnesium Hydroxide (Milk Of Magnesia 30 Ml Oral.Susp) 30 ml PO DAILY PRN PRN Reason: Constipation Multi-Ingred Cream/Lotion/Oil/Oint (Mineral Oil/Petrolatum,White 106 Gm Tube) [address] [facility]; Protocol Last Admin: 06/04/21 08:33 Dose: Not Given Documented by: Nicotine (Nicotine 21 Mg Patch.Td24) 21 mg TRANSDERMA DAILY PRN PRN Reason: smoking cessation Nicotine Polacrilex (Nicotine Polacrilex 2 Mg Gum) 4 mg BUCCAL Q2H PRN PRN Reason: Nicotine Cravings Paliperidone (Paliperidone Er 6 Mg Tab.Er.24) [address] [facility] Last Admin: 06/04/21 08:32 Dose: 6 mg Documented by: Polyethylene Glycol (Polyethylene Glycol 3350 17 Gm Powd.Pack) 17 gm PO DAILY PRN PRN Reason: CONSTIPATION Senna (Sennosides 8.6 Mg Tablet) 17.[address] [facility] Last Admin: 06/03/21 20:44 Dose: 17.2 mg Documented by: Trazodone HCl (Trazodone Hcl 50 Mg Tablet) 50 mg PO BEDTIME PRN PRN Reason: Insomnia Allergies Allergies Allergy/AdvReac Type Severity Reaction Status Date / Time haloperidol [From HALDOL] Allergy Severe DYSTONIA Verified 04/19/21 06:28 ziprasidone [From GEODON] Allergy Severe DYSTONIA Verified 04/19/21 06:28 Assessment & Plan Assessment & Plan (1) Schizoaffective disorder, bipolar type: Status: Acute Code(s): F25.0 - Schizoaffective disorder, bipolar type Assessment and Plan: Continues with psychosis, aggressive agitation, lability of mood. Requiring restraint. Thorazine 50 mg tid with IM back up as needed Thorazine 100 mg bid prn with IM back up as needed. Initially, pt and I discussed an [facility] to address symptoms. From observation of pt's intensity of psychosis, agitation, lability, this does not appear to be the best agent to meet this level of symptom intensity. Will discuss with pt an Invega trial with transition to Sustenna during his hospitalization with initiation. 05/07/21 Invega 6 mg 05/08. Continue Thorazine prn. (pt required IM back up on 05/07/21) 05/08/21 Continue current plan of care. 05/09/21: Ct w plan per [facility] order 05/10/21: Ct Rx plan 05/11/21: Continue Invega titration. 05/12/21 Pt tolerating Invega. Will begin Sustenna on 05/13. 05/13/21 Sustanna given, tolerated. Support, educate, integrate into milieu for added support. 05/14/21 Tolerating Sustenna. Calmer, more focused today. Asking for help with legal issues, attempting to organize his responsibilities 05/15/21 Continue current plan. 05/16/21 Continue current plan 05/17/21 Continue current plan 05/18/21 Follow up with probation-pt agrees and signed JEANNETTE Second Sustenna injection 05/21. Tolerating with breakthrough sx with PO as well. 05/19/21 Team/Peers report evening/night agitation Depakote 500 mg ER HS 05/20/21 Continue current regime Scheduled Invega injection for 05/21 Continue to attempt alliance building, education, support 05/21/21 Continue current regimen, no changes to medication, will monitor for benefit on invega sustenna COKER. Still taking PO invega. Has not been taking PO depakote, so will not order a level. 05/22/21 Continue current regimen, pt is tolerating invega sustenna well. Not taking depakote. Appropriate on the unit. 05/23/21: No changes to above med plan. 05/24/21: No changes to above plan, continue PO invega until invega sustenna reaches steady state. Pt somewhat intrusive with high fiving staff but redirectable. 05/26/21: Continue current plan. [facility] application 05/27/21 Pt has been refusing Depakote at hs with resulting poor sleep. Will give Chlorpromazine IM if Depakote is refused. 05/28/21 Continue current plan Labs 06/01/20. 05/29/21 Continue with current plan 05/30/21 continue with current treatment plan 05/31/21 continue with current treatment plan 06/01/21 Discontinue Depakote-pt prefers Chlorpromazine at HS-50 mg as he reports it is more helpful with sleep quality assistance. 06/03/21: Education, support. [facility] application. 06/04/21: Increase Chlorpromazine to 75 mg HS to assist with mgt of lability. I spent 50 minutes with the patient and/or on the patient floor today, greater than?50% of which was spent counseling/coordinating care. Patient educated on: medication risk/benefits and therapeutic strategies Informed Consent: further education needed Reason for contiued inpatient stay Substantial Risk for: harm to self, harm to others, inability to function and rapid decompensation
[2021-06-04 13:43] VITALS: BMI 27.7
[2021-06-04 18:00] VITALS: BP 148/64; PULSE 91; TEMP 37.1
[2021-06-04] MEDS: chlorproMAZINE HCl 25 MG TABLET 75 MG PO (20:51)
[2021-06-05 06:50] VITALS: BP 110/66; PULSE 86; RESP 18; TEMP 36.6; O2SAT 96
[2021-06-05] MEDS: Paliperidone ER 6 MG TAB.ER.24 PO (08:45)
[2021-06-05 17:32] VITALS: BP 112/69; PULSE 109; TEMP 37.1
--- NOTE | 2021-06-05 17:42 | HO.PSYCHPN ---
Subjective Subjective Date of Service: 06/05/21 Reason For Visit: Schizophrenia Subjective Notes: Section 8 Healthcare Proxy: No Guardianship: No Medical Problems Affecting Mental Status: No Interim History: Calmer discussion today regarding being unable to transfer to [facility] due to pt's commitment here. Pt today is willing to transition to [facility] and states he understands rationale. He has made contact with [employer] for insurance attorney to be assigned for discharge. Medication Compliance: Yes Side effects from medications: No Attending Groups: No Review of Systems Acute medical concerns: No Medical Review of Systems: unchanged Review of Systems Reports behavioral changes Psychiatric: Reports abnormal sleep pattern (reports improving sleep), Reports anxiety, Reports behavioral changes, Reports depression, Reports difficulty concentrating, Reports hopelessness, Reports irritability, Reports anhedonia, Reports mood swings and Reports paranoia Mental Status Exam Mental Status Exam Patient Appearance: Appropriate Patient Orientation: Person, Place, Time and Situation Level of Consciousness: Alert Patient Behavior: Talkative, Good Eye Contact and Crying Mood Description: Labile Affect Description: Labile Patient Cognition Impaired: No Ability to Follow Directions: Good Speech Pattern: Spontaneous Speech Memory Description: Remote Impaired and Episodic Impaired Hallucinations: Auditory and Visual Delusions: Paranoid Ideation and Present Thought Process: Illogical and Distracted Thought Content: positive for [place], positive for Circumstantial, positive for Perseveration and positive for Preoccupation Depressive Symptoms: Increased Anxiety, Insomnia, Diff. Making Decisions, Difficulty Sleeping, Hopelessness and Difficulty Concentrating Abnormal Motor Activity Signs and Symptoms: Restlessness Judgement: Poor Diagnostics Vital Signs (24Hr): Vital Signs - 24 hr 06/04/21 18:00 06/05/21 06:50 06/05/21 17:32 Temperature 98.8 F 97.8 F 98.8 F Pulse Rate 91 86 109 H Respiratory Rate 18 Blood Pressure 148/64 H 110/66 112/69 Pulse Oximetry 96 BMI result Body Mass Index 27.7 Labs Results: 06/01/21 07:51 06/01/21 07:51 Imaging Radiology Impressions: ITS Impressions Face X-Ray 04/21/21 15:29 IMPRESSION: No fracture seen. Orbit X-Ray 04/21/21 15:29 IMPRESSION: No fracture seen. Cervical Spine CT 04/24/21 22:24 IMPRESSION: No evidence of acute intracranial abnormalities. No evidence of acute maxillofacial fractures. However, evaluation of the inferior mandibular body is limited due to motion and although no definite fractures or surrounding soft tissue thickening/hematoma are identified, clinical correlation for pain/tenderness in the inferior mandible should be obtained as this is suboptimally assessed in this study. No acute cervical fractures or malalignment. Face CT 04/24/21 22:24 IMPRESSION: No evidence of acute intracranial abnormalities. No evidence of acute maxillofacial fractures. However, evaluation of the inferior mandibular body is limited due to motion and although no definite fractures or surrounding soft tissue thickening/hematoma are identified, clinical correlation for pain/tenderness in the inferior mandible should be obtained as this is suboptimally assessed in this study. No acute cervical fractures or malalignment. Head CT 04/24/21 22:24 IMPRESSION: No evidence of acute intracranial abnormalities. No evidence of acute maxillofacial fractures. However, evaluation of the inferior mandibular body is limited due to motion and although no definite fractures or surrounding soft tissue thickening/hematoma are identified, clinical correlation for pain/tenderness in the inferior mandible should be obtained as this is suboptimally assessed in this study. No acute cervical fractures or malalignment. Medications Medications Current Medications Acetaminophen (Acetaminophen 325 Mg Tablet) 650 mg PO Q6H PRN PRN Reason: Headache/Pain Mild Scale (1-3) Last Admin: 05/21/21 21:14 Dose: 650 mg Documented by: Al Hydroxide/Mg Hydroxide (Magnesium Hydrox/Alum Hydrox 30 Ml Oral.Susp) 30 ml PO Q6H PRN PRN Reason: Heartburn/Nausea Last Admin: 05/27/21 00:13 Dose: 30 ml Documented by: Benztropine Mesylate (Benztropine Mesylate 1 Mg Tablet) 1 mg PO TID PRN PRN Reason: Extrapyramidal Effects Chlorpromazine HCl (Chlorpromazine Hcl 100 Mg Tablet) 100 mg PO BID PRN PRN Reason: psychotic agitation Last Admin: 06/03/21 20:44 Dose: 100 mg Documented by: Chlorpromazine HCl (Chlorpromazine Hcl 25 Mg Tablet) 75 mg PO BEDTIME [facility] Last Admin: 06/04/21 20:51 Dose: 75 mg Documented by: Diphenhydramine HCl (Diphenhydramine Hcl 25 Mg Tablet) 50 mg PO Q4H PRN PRN Reason: agitation Last Admin: 05/22/21 00:07 Dose: 50 mg Documented by: Hydroxyzine HCl (Hydroxyzine Hcl 25 Mg Tablet) 25 mg PO QID PRN PRN Reason: Anxiety Last Admin: 05/21/21 21:14 Dose: 25 mg Documented by: Ibuprofen (Ibuprofen 600 Mg Tablet) 600 mg PO Q4H PRN PRN Reason: Pain, Moderate (Pain Scale 4-6 Last Admin: 05/22/21 07:13 Dose: 600 mg Documented by: Magnesium Hydroxide (Milk Of Magnesia 30 Ml Oral.Susp) 30 ml PO DAILY PRN PRN Reason: Constipation Multi-Ingred Cream/Lotion/Oil/Oint (Mineral Oil/Petrolatum,White 106 Gm Tube) 1 appl TOPICAL TID [facility]; Protocol Last Admin: 06/05/21 13:39 Dose: Not Given Documented by: Nicotine (Nicotine 21 Mg Patch.Td24) 21 mg TRANSDERMA DAILY PRN PRN Reason: smoking cessation Nicotine Polacrilex (Nicotine Polacrilex 2 Mg Gum) 4 mg BUCCAL Q2H PRN PRN Reason: Nicotine Cravings Paliperidone (Paliperidone Er 6 Mg Tab.Er.24) 6 mg PO DAILY [facility] Last Admin: 06/05/21 08:45 Dose: 6 mg Documented by: Polyethylene Glycol (Polyethylene Glycol 3350 17 Gm Powd.Pack) 17 gm PO DAILY PRN PRN Reason: CONSTIPATION Senna (Sennosides 8.6 Mg Tablet) 17.2 mg PO BEDTIME [facility] Last Admin: 06/04/21 19:45 Dose: Not Given Documented by: Trazodone HCl (Trazodone Hcl 50 Mg Tablet) 50 mg PO BEDTIME PRN PRN Reason: Insomnia Allergies Allergies Allergy/AdvReac Type Severity Reaction Status Date / Time haloperidol [From HALDOL] Allergy Severe DYSTONIA Verified 04/19/21 06:28 ziprasidone [From GEODON] Allergy Severe DYSTONIA Verified 04/19/21 06:28 Assessment & Plan Assessment & Plan (1) Schizoaffective disorder, bipolar type: Status: Acute Code(s): F25.0 - Schizoaffective disorder, bipolar type Assessment and Plan: Continues with psychosis, aggressive agitation, lability of mood. Requiring restraint. Thorazine 50 mg tid with IM back up as needed Thorazine 100 mg bid prn with IM back up as needed. Initially, pt and I discussed an Abilify Maintena trial to address symptoms. From observation of pt's intensity of psychosis, agitation, lability, this does not appear to be the best agent to meet this level of symptom intensity. Will discuss with pt an Invega trial with transition to Sustenna during his hospitalization with initiation. 05/07/21 Invega 6 mg 05/08. Continue Thorazine prn. (pt required IM back up on 05/07/21) 05/08/21 Continue current plan of care. 05/09/21: Ct w plan per [facility] order 05/10/21: Ct Rx plan 05/11/21: Continue Invega titration. 05/12/21 Pt tolerating Invega. Will begin Sustenna on 05/13. 05/13/21 Sustanna given, tolerated. Support, educate, integrate into milieu for added support. 05/14/21 Tolerating Sustenna. Calmer, more focused today. Asking for help with legal issues, attempting to organize his responsibilities 05/15/21 Continue current plan. 05/16/21 Continue current plan 05/17/21 Continue current plan 05/18/21 Follow up with probation-pt agrees and signed JEANNETTE Second Sustenna injection 05/21. Tolerating with breakthrough sx with PO as well. 05/19/21 Team/Peers report evening/night agitation Depakote 500 mg ER HS 05/20/21 Continue current regime Scheduled Invega injection for 05/21 Continue to attempt alliance building, education, support 05/21/21 Continue current regimen, no changes to medication, will monitor for benefit on invega sustenna COKER. Still taking PO invega. Has not been taking PO depakote, so will not order a level. 05/22/21 Continue current regimen, pt is tolerating invega sustenna well. Not taking depakote. Appropriate on the unit. 05/23/21: No changes to above med plan. 05/24/21: No changes to above plan, continue PO invega until invega sustenna reaches steady state. Pt somewhat intrusive with high fiving staff but redirectable. 05/26/21: Continue current plan. [facility] application 05/27/21 Pt has been refusing Depakote at hs with resulting poor sleep. Will give Chlorpromazine IM if Depakote is refused. 05/28/21 Continue current plan Labs 06/01/20. 05/29/21 Continue with current plan 05/30/21 continue with current treatment plan 05/31/21 continue with current treatment plan 06/01/21 Discontinue Depakote-pt prefers Chlorpromazine at HS-50 mg as he reports it is more helpful with sleep quality assistance. 06/03/21: Education, support. [facility] application. 06/04/21: Increase Chlorpromazine to 75 mg HS to assist with mgt of lability. 06/05/21: Continue current regime I spent 40 minutes with the patient and/or on the patient floor today, greater than?50% of which was spent counseling/coordinating care. Patient educated on: medication risk/benefits and therapeutic strategies Informed Consent: further education needed Reason for contiued inpatient stay Substantial Risk for: harm to self, harm to others, inability to function and rapid decompensation
[2021-06-05] MEDS: chlorproMAZINE HCl 25 MG TABLET 75 MG PO (20:10)
[2021-06-06 05:20] VITALS: BP 121/71; PULSE 93; TEMP 36.7
[2021-06-06] MEDS: Paliperidone ER 6 MG TAB.ER.24 PO (08:16)
--- NOTE | 2021-06-06 09:42 | P.PNPSI_ITS ---
Subjective Subjective Date of Service: 06/06/21 Reason For Visit: Schizophrenia Subjective Notes: Section 8 Interim History: Pt pleasant, overly friendly at times. Pt reports feeling better in that he is not agitated, yelling or punching wall as he was when he first came here. He reports sleeping and eating well. He denies SI/HI. he reports some sadness related to breaking up with GF. Pt has been visible in the unit, no behavioral concerns. Medication Compliance: Yes Side effects from medications: No Attending Groups: Intermittent Review of Systems Review of Systems no changes Constitutional: Reports no additional constitutional complaints Musculoskeletal: Reports other (denies, s/p punching a wall with abrasions sustatined) Reports behavioral changes, Reports confusion and Reports memory loss Psychiatric: Reports abnormal sleep pattern (reports improving sleep), Reports anxiety, Reports behavioral changes, Reports confusion, Reports depression, Reports difficulty concentrating, Reports auditory hallucinations, Reports hopelessness, Reports irritability, Reports anhedonia, Reports memory loss, Reports mood swings, Reports paranoia, Reports visual hallucinations, Reports hallucinations, Reports homicidal ideation, Reports suicidal ideation (denies) and Reports other (aggression, agitation, violence precipitating restraint) Mental Status Exam Mental Status Exam Narrative: Patient Appearance:?casually groomed, good hygiene, in NAD Behavior: overly friendly/familiar at times Psychomotor: no agitation or retardation noted Speech: clear, normal rate/rhythm/volume, spontaneous TP: linear TC: no overt psychosis, sadness about breaking up with GF Mood: okay Affect: bright, non labile VH/AH: none SI: none HI: none Insight/judgment: fair x 2. Memory/cog: alert, oriented x 3. Diagnostics Vital Signs (24Hr): Vital Signs - 24 hr 06/06/21 18:00 06/07/21 04:54 06/07/21 08:25 Temperature 98.9 F 97.8 F 97.8 F Pulse Rate 88 80 69 Respiratory Rate 18 18 Blood Pressure 118/73 114/66 110/59 L Pulse Oximetry 99 98 100 BMI result Body Mass Index 27.7 Labs Results: 06/01/21 07:51 06/01/21 07:51 Imaging Radiology Impressions: ITS Impressions Face X-Ray 04/21/21 15:29 IMPRESSION: No fracture seen. Orbit X-Ray 04/21/21 15:29 IMPRESSION: No fracture seen. Cervical Spine CT 04/24/21 22:24 IMPRESSION: No evidence of acute intracranial abnormalities. No evidence of acute maxillofacial fractures. However, evaluation of the inferior mandibular body is limited due to motion and although no definite fractures or surrounding soft tissue thickening/hematoma are identified, clinical correlation for pain/tenderness in the inferior mandible should be obtained as this is suboptimally assessed in this study. No acute cervical fractures or malalignment. Face CT 04/24/21 22:24 IMPRESSION: No evidence of acute intracranial abnormalities. No evidence of acute maxillofacial fractures. However, evaluation of the inferior mandibular body is limited due to motion and although no definite fractures or surrounding soft tissue thickening/hematoma are identified, clinical correlation for pain/tenderness in the inferior mandible should be obtained as this is suboptimally assessed in this study. No acute cervical fractures or malalignment. Head CT 04/24/21 22:24 IMPRESSION: No evidence of acute intracranial abnormalities. No evidence of acute maxillofacial fractures. However, evaluation of the inferior mandibular body is limited due to motion and although no definite fractures or surrounding soft tissue thickening/hematoma are identified, clinical correlation for pain/tenderness in the inferior mandible should be obtained as this is suboptimally assessed in this study. No acute cervical fractures or malalignment. Medications Medications Current Medications Acetaminophen (Acetaminophen 325 Mg Tablet) 650 mg PO Q6H PRN PRN Reason: Headache/Pain Mild Scale (1-3) Last Admin: 05/21/21 21:14 Dose: 650 mg Documented by: Al Hydroxide/Mg Hydroxide (Magnesium Hydrox/Alum Hydrox 30 Ml Oral.Susp) 30 ml PO Q6H PRN PRN Reason: Heartburn/Nausea Last Admin: 05/27/21 00:13 Dose: 30 ml Documented by: Benztropine Mesylate (Benztropine Mesylate 1 Mg Tablet) 1 mg PO TID PRN PRN Reason: Extrapyramidal Effects Chlorpromazine HCl (Chlorpromazine Hcl 100 Mg Tablet) 100 mg PO BID PRN PRN Reason: psychotic agitation Last Admin: 06/03/21 20:44 Dose: 100 mg Documented by: Chlorpromazine HCl (Chlorpromazine Hcl 25 Mg Tablet) 75 mg PO BEDTIME MARGAUX Last Admin: 06/06/21 21:01 Dose: 75 mg Documented by: Diphenhydramine HCl (Diphenhydramine Hcl 25 Mg Tablet) 50 mg PO Q4H PRN PRN Reason: agitation Last Admin: 05/22/21 00:07 Dose: 50 mg Documented by: Hydroxyzine HCl (Hydroxyzine Hcl 25 Mg Tablet) 25 mg PO QID PRN PRN Reason: Anxiety Last Admin: 05/21/21 21:14 Dose: 25 mg Documented by: Ibuprofen (Ibuprofen 600 Mg Tablet) 600 mg PO Q4H PRN PRN Reason: Pain, Moderate (Pain Scale 4-6 Last Admin: 05/22/21 07:13 Dose: 600 mg Documented by: Magnesium Hydroxide (Milk Of Magnesia 30 Ml Oral.Susp) 30 ml PO DAILY PRN PRN Reason: Constipation Multi-Ingred Cream/Lotion/Oil/Oint (Mineral Oil/Petrolatum,White 106 Gm Tube) 1 appl TOPICAL TID [facility]; Protocol Last Admin: 06/07/21 09:39 Dose: Not Given Documented by: Nicotine (Nicotine 21 Mg Patch.Td24) 21 mg TRANSDERMA DAILY PRN PRN Reason: smoking cessation Nicotine Polacrilex (Nicotine Polacrilex 2 Mg Gum) 4 mg BUCCAL Q2H PRN PRN Reason: Nicotine Cravings Paliperidone (Paliperidone Er 6 Mg Tab.Er.24) 6 mg PO DAILY [facility] Last Admin: 06/07/21 09:38 Dose: 6 mg Documented by: Polyethylene Glycol (Polyethylene Glycol 3350 17 Gm Powd.Pack) 17 gm PO DAILY PRN PRN Reason: CONSTIPATION Senna (Sennosides 8.6 Mg Tablet) 17.2 mg PO BEDTIME [facility] Last Admin: 06/06/21 21:08 Dose: Not Given Documented by: Trazodone HCl (Trazodone Hcl 50 Mg Tablet) 50 mg PO BEDTIME PRN PRN Reason: Insomnia Allergies Allergies Allergy/AdvReac Type Severity Reaction Status Date / Time haloperidol [From HALDOL] Allergy Severe DYSTONIA Verified 04/19/21 06:28 ziprasidone [From GEODON] Allergy Severe DYSTONIA Verified 04/19/21 06:28 Assessment & Plan Assessment & Plan (1) Schizoaffective disorder, bipolar type: Status: Acute Code(s): F25.0 - Schizoaffective disorder, bipolar type Assessment and Plan: Continues with psychosis, aggressive agitation, lability of mood. Requiring res traint. Thorazine 50 mg tid with IM back up as needed Thorazine 100 mg bid prn with IM back up as needed. Initially, pt and I discussed an Abilify Maintena trial to address symptoms. From observation of pt's intensity of psychosis, agitation, lability, this does not appear to be the best agent to meet this level of symptom intensity. Will discuss with pt an Invega trial with transition to Sustenna during his hospitalization with initiation. 05/07/21 Invega 6 mg 05/08. Continue Thorazine prn. (pt required IM back up on 05/07/21) 05/08/21 Continue current plan of care. 05/09/21: Ct w plan per [facility] order 05/10/21: Ct Rx plan 05/11/21: Continue Invega titration. 05/12/21 Pt tolerating Invega. Will begin Sustenna on 05/13. 05/13/21 Sustanna given, tolerated. Support, educate, integrate into milieu for added support. 05/14/21 Tolerating Sustenna. Calmer, more focused today. Asking for help with legal issues, attempting to organize his responsibilities 05/15/21 Continue current plan. 05/16/21 Continue current plan 05/17/21 Continue current plan 05/18/21 Follow up with probation-pt agrees and signed JEANNETTE Second Sustenna injection 05/21. Tolerating with breakthrough sx with PO as well. 05/19/21 Team/Peers report evening/night agitation Depakote 500 mg ER HS 05/20/21 Continue current regime Scheduled Invega injection for 05/21 Continue to attempt alliance building, education, support 05/21/21 Continue current regimen, no changes to medication, will monitor for benefit on invega sustenna COKER. Still taking PO invega. Has not been taking PO depakote, so will not order a level. 05/22/21 Continue current regimen, pt is tolerating invega sustenna well. Not taking depakote. Appropriate on the unit. 05/23/21: No changes to above med plan. 05/24/21: No changes to above plan, continue PO invega until invega sustenna reaches steady state. Pt somewhat intrusive with high fiving staff but redirectable. 05/26/21: Continue current plan. Vibra application 05/27/21 Pt has been refusing Depakote at hs with resulting poor sleep. Will give Chlorpromazine IM if Depakote is refused. 05/28/21 Continue current plan Labs 06/01/20. 05/29/21 Continue with current plan 05/30/21 continue with current treatment plan 05/31/21 continue with current treatment plan 06/01/21 Discontinue Depakote-pt prefers Chlorpromazine at HS-50 mg as he reports it is more helpful with sleep quality assistance. 06/03/21: Education, support. Vibra application. 06/04/21: Increase Chlorpromazine to 75 mg HS to assist with mgt of lability. 06/05/21: Continue current regime 06/06 continue current medications I spent minutes with the patient and/or on the patient floor today, greater than?50% of which was spent counseling/coordinating care. Reason for contiued inpatient stay Substantial Risk for: inability to function
[2021-06-06 18:00] VITALS: BP 118/73; PULSE 88; RESP 18; TEMP 37.2; O2SAT 99
[2021-06-06] MEDS: chlorproMAZINE HCl 25 MG TABLET 75 MG PO (21:01)
[2021-06-07 04:54] VITALS: BP 114/66; PULSE 80; RESP 18; TEMP 36.6; O2SAT 98
[2021-06-07 08:25] VITALS: BP 110/59; PULSE 69; TEMP 36.6; O2SAT 100
[2021-06-07] MEDS: Paliperidone ER 6 MG TAB.ER.24 PO (09:38)
--- NOTE | 2021-06-07 10:49 | HO.PSYCHPN ---
Subjective Subjective Date of Service: 06/07/21 Reason For Visit: Schizophrenia Subjective Notes: Section 7 Interim History: Pt pleasant, overly friendly at times. Pt resting in his room. Pt reports feeling better in that he is not agitated, yelling or punching wall as he was when he first came here. He reports sleeping and eating well. He denies SI/HI. he reports some sadness related to breaking up with GF. Pt has been visible in the unit, no behavioral concerns. Review of Systems Review of Systems no changes Constitutional: Reports no additional constitutional complaints Musculoskeletal: Reports other (denies, s/p punching a wall with abrasions sustatined) Reports behavioral changes, Reports confusion and Reports memory loss Psychiatric: Reports abnormal sleep pattern (reports improving sleep), Reports anxiety, Reports behavioral changes, Reports confusion, Reports depression, Reports difficulty concentrating, Reports auditory hallucinations, Reports hopelessness, Reports irritability, Reports anhedonia, Reports memory loss, Reports mood swings, Reports paranoia, Reports visual hallucinations, Reports hallucinations, Reports homicidal ideation, Reports suicidal ideation (denies) and Reports other (aggression, agitation, violence precipitating restraint) Mental Status Exam Mental Status Exam Narrative: Patient Appearance:?casually groomed, good hygiene, in NAD Behavior: overly friendly/familiar at times Psychomotor: no agitation or retardation noted Speech: clear, normal rate/rhythm/volume, spontaneous TP: linear TC: no overt psychosis, sadness about breaking up with GF Mood: okay Affect: bright, non labile VH/AH: none SI: none HI: none Insight/judgment: fair x 2. Memory/cog: alert, oriented x 3. Diagnostics Vital Signs (24Hr): Vital Signs - 24 hr 06/06/21 18:00 06/07/21 04:54 06/07/21 08:25 Temperature 98.9 F 97.8 F 97.8 F Pulse Rate 88 80 69 Respiratory Rate 18 18 Blood Pressure 118/73 114/66 110/59 L Pulse Oximetry 99 98 100 BMI result Body Mass Index 27.7 Labs Results: 06/01/21 07:51 06/01/21 07:51 Imaging Radiology Impressions: ITS Impressions Face X-Ray 04/21/21 15:29 IMPRESSION: No fracture seen. Orbit X-Ray 04/21/21 15:29 IMPRESSION: No fracture seen. Cervical Spine CT 04/24/21 22:24 IMPRESSION: No evidence of acute intracranial abnormalities. No evidence of acute maxillofacial fractures. However, evaluation of the inferior mandibular body is limited due to motion and although no definite fractures or surrounding soft tissue thickening/hematoma are identified, clinical correlation for pain/tenderness in the inferior mandible should be obtained as this is suboptimally assessed in this study. No acute cervical fractures or malalignment. Face CT 04/24/21 22:24 IMPRESSION: No evidence of acute intracranial abnormalities. No evidence of acute maxillofacial fractures. However, evaluation of the inferior mandibular body is limited due to motion and although no definite fractures or surrounding soft tissue thickening/hematoma are identified, clinical correlation for pain/tenderness in the inferior mandible should be obtained as this is suboptimally assessed in this study. No acute cervical fractures or malalignment. Head CT 04/24/21 22:24 IMPRESSION: No evidence of acute intracranial abnormalities. No evidence of acute maxillofacial fractures. However, evaluation of the inferior mandibular body is limited due to motion and although no definite fractures or surrounding soft tissue thickening/hematoma are identified, clinical correlation for pain/tenderness in the inferior mandible should be obtained as this is suboptimally assessed in this study. No acute cervical fractures or malalignment. Medications Medications Current Medications Acetaminophen (Acetaminophen 325 Mg Tablet) 650 mg PO Q6H PRN PRN Reason: Headache/Pain Mild Scale (1-3) Last Admin: 05/21/21 21:14 Dose: 650 mg Documented by: Al Hydroxide/Mg Hydroxide (Magnesium Hydrox/Alum Hydrox 30 Ml Oral.Susp) 30 ml PO Q6H PRN PRN Reason: Heartburn/Nausea Last Admin: 05/27/21 00:13 Dose: 30 ml Documented by: Benztropine Mesylate (Benztropine Mesylate 1 Mg Tablet) 1 mg PO TID PRN PRN Reason: Extrapyramidal Effects Chlorpromazine HCl (Chlorpromazine Hcl 100 Mg Tablet) 100 mg PO BID PRN PRN Reason: psychotic agitation Last Admin: 06/03/21 20:44 Dose: 100 mg Documented by: Chlorpromazine HCl (Chlorpromazine Hcl 25 Mg Tablet) 75 mg PO BEDTIME [facility]GAUX Last Admin: 06/06/21 21:01 Dose: 75 mg Documented by: Diphenhydramine HCl (Diphenhydramine Hcl 25 Mg Tablet) 50 mg PO Q4H PRN PRN Reason: agitation Last Admin: 05/22/21 00:07 Dose: 50 mg Documented by: Hydroxyzine HCl (Hydroxyzine Hcl 25 Mg Tablet) 25 mg PO QID PRN PRN Reason: Anxiety Last Admin: 05/21/21 21:14 Dose: 25 mg Documented by: Ibuprofen (Ibuprofen 600 Mg Tablet) 600 mg PO Q4H PRN PRN Reason: Pain, Moderate (Pain Scale 4-6 Last Admin: 05/22/21 07:13 Dose: 600 mg Documented by: Magnesium Hydroxide (Milk Of Magnesia 30 Ml Oral.Susp) 30 ml PO DAILY PRN PRN Reason: Constipation Multi-Ingred Cream/Lotion/Oil/Oint (Mineral Oil/Petrolatum,White 106 Gm Tube) 1 appl TOPICAL TID [facility]; Protocol Last Admin: 06/07/21 09:39 Dose: Not Given Documented by: Nicotine (Nicotine 21 Mg Patch.Td24) 21 mg TRANSDERMA DAILY PRN PRN Reason: smoking cessation Nicotine Polacrilex (Nicotine Polacrilex 2 Mg Gum) 4 mg BUCCAL Q2H PRN PRN Reason: Nicotine Cravings Paliperidone (Paliperidone Er 6 Mg Tab.Er.24) 6 mg PO DAILY [facility] Last Admin: 06/07/21 09:38 Dose: 6 mg Documented by: Polyethylene Glycol (Polyethylene Glycol 3350 17 Gm Powd.Pack) 17 gm PO DAILY PRN PRN Reason: CONSTIPATION Senna (Sennosides 8.6 Mg Tablet) 17.2 mg PO BEDTIME [facility] Last Admin: 06/06/21 21:08 Dose: Not Given Documented by: Trazodone HCl (Trazodone Hcl 50 Mg Tablet) 50 mg PO BEDTIME PRN PRN Reason: Insomnia Allergies Allergies Allergy/AdvReac Type Severity Reaction Status Date / Time haloperidol [From HALDOL] Allergy Severe DYSTONIA Verified 04/19/21 06:28 ziprasidone [From GEODON] Allergy Severe DYSTONIA Verified 04/19/21 06:28 Assessment & Plan Assessment & Plan (1) Schizoaffective disorder, bipolar type: Status: Acute Code(s): F25.0 - Schizoaffective disorder, bipolar type Assessment and Plan: Continues with psychosis, aggressive agitation, lability of mood. Requiring restraint. Thorazine 50 mg tid with IM back up as needed Thorazine 100 mg bid prn with IM back up as needed. Initially, pt and I discussed an Abilify Maintena trial to address symptoms. From observation of pt's intensity of psychosis, agitation, lability, this does not appear to be the best agent to meet this level of symptom intensity. Will discuss with pt an Invega trial with transition to Sustenna during his hospitalization with initiation. 05/07/21 Invega 6 mg 05/08. Continue Thorazine prn. (pt required IM back up on 05/07/21) 05/08/21 Continue current plan of care. 05/09/21: Ct w plan per [facility] order 05/10/21: Ct Rx plan 05/11/21: Continue Invega titration. 05/12/21 Pt tolerating Invega. Will begin Sustenna on 05/13. 05/13/21 Sustanna given, tolerated. Support, educate, integrate into milieu for added support. 05/14/21 Tolerating Sustenna. Calmer, more focused today. Asking for help with legal issues, attempting to organize his responsibilities 05/15/21 Continue current plan. 05/16/21 Continue current plan 05/17/21 Continue current plan 05/18/21 Follow up with probation-pt agrees and signed JEANNETTE Second Sustenna injection 05/21. Tolerating with breakthrough sx with PO as well. 05/19/21 Team/Peers report evening/night agitation Depakote 500 mg ER HS 05/20/21 Continue current regime Scheduled Invega injection for 05/21 Continue to attempt alliance building, education, support 05/21/21 Continue current regimen, no changes to medication, will monitor for benefit on invega sustenna COKER. Still taking PO invega. Has not been taking PO depakote, so will not order a level. 05/22/21 Continue current regimen, pt is tolerating invega sustenna well. Not taking depakote. Appropriate on the unit. 05/23/21: No changes to above med plan. 05/24/21: No changes to above plan, continue PO invega until invega sustenna reaches steady state. Pt somewhat intrusive with high fiving staff but redirectable. 05/26/21: Continue current plan. Vibra application 05/27/21 Pt has been refusing Depakote at hs with resulting poor sleep. Will give Chlorpromazine IM if Depakote is refused. 05/28/21 Continue current plan Labs 06/01/20. 05/29/21 Continue with current plan 05/30/21 continue with current treatment plan 05/31/21 continue with current treatment plan 06/01/21 Discontinue Depakote-pt prefers Chlorpromazine at HS-50 mg as he reports it is more helpful with sleep quality assistance. 06/03/21: Education, support. Vibra application. 06/04/21: Increase Chlorpromazine to 75 mg HS to assist with mgt of lability. 06/05/21: Continue current regime 06/06 continue current medications I spent minutes with the patient and/or on the patient floor today, greater than?50% of which was spent counseling/coordinating care. Reason for contiued inpatient stay Substantial Risk for: inability to function
[2021-06-07] MEDS: chlorproMAZINE HCl 25 MG TABLET 75 MG PO (20:24)
[2021-06-07 20:28] VITALS: BP 123/69; PULSE 79; RESP 18; TEMP 36.5; O2SAT 99
[2021-06-08 06:00] VITALS: BP 108/65; PULSE 86; RESP 18; TEMP 36.4; O2SAT 99
[2021-06-08] MEDS: Paliperidone ER 6 MG TAB.ER.24 PO (08:30)
--- NOTE | 2021-06-08 12:36 | HO.PSYCHPN ---
Subjective Subjective Date of Service: 06/08/21 Reason For Visit: Schizophrenia Subjective Notes: Section 8 Healthcare Proxy: No Guardianship: No Medical Problems Affecting Mental Status: No Interim History: Discussed concerns with helicopter officer in [place] not wanting to talk with him as his admission was not verified. Review of letter sent to [facility] on 05/20. Will re-draft another letter and fax/mail to validate pt's admission and treatment. Pt also asking about [facility] manager case assignment and if that could be completed so he could schedule a meeting to discuss transition to [facility] or other programs. Team has made these requests. Team reports a reasonable weekend for pt . Medication Compliance: Yes Side effects from medications: No (denies) Attending Groups: Intermittent Review of Systems Acute medical concerns: No Medical Review of Systems: unchanged Review of Systems Review of Systems Yes all other systems are reviewed and are negative Reports behavioral changes Psychiatric: Reports abnormal sleep pattern, Reports anxiety, Reports behavioral changes, Reports depression, Reports difficulty concentrating, Reports auditory hallucinations, Reports hopelessness, Reports irritability, Reports mood swings, Reports paranoia, Reports visual hallucinations and Reports hallucinations Mental Status Exam Mental Status Exam Patient Appearance: Appropriate Patient Orientation: Person, Place, Time and Situation Level of Consciousness: Alert Patient Behavior: Talkative and Good Eye Contact Mood Description: Labile Affect Description: Labile Patient Cognition Impaired: No Ability to Follow Directions: Good Speech Pattern: Spontaneous Speech Memory Description: Episodic Impaired Hallucinations: Auditory and Visual Delusions: Paranoid Ideation and Present Perceptual Disturbances: Depersonalization and Derealization Thought Process: Distracted and Rumination Thought Content: positive for [place], positive for Circumstantial, positive for Goal Oriented, positive for Perseveration, positive for Preoccupation, positive for Loose Associations and positive for Tangential Depressive Symptoms: Increased Anxiety and Low Self Esteem Abnormal Motor Activity Signs and Symptoms: Restlessness Judgement: Poor Diagnostics Vital Signs (24Hr): Vital Signs - 24 hr 06/07/21 20:28 06/08/21 06:00 Temperature 97.7 F 97.6 F Pulse Rate 79 86 Respiratory Rate 18 18 Blood Pressure 123/69 108/65 Pulse Oximetry 99 99 BMI result Body Mass Index 27.7 Labs Results: 06/01/21 07:51 06/01/21 07:51 Imaging Radiology Impressions: ITS Impressions Face X-Ray 04/21/21 15:29 IMPRESSION: No fracture seen. Orbit X-Ray 04/21/21 15:29 IMPRESSION: No fracture seen. Cervical Spine CT 04/24/21 22:24 IMPRESSION: No evidence of acute intracranial abnormalities. No evidence of acute maxillofacial fractures. However, evaluation of the inferior mandibular body is limited due to motion and although no definite fractures or surrounding soft tissue thickening/hematoma are identified, clinical correlation for pain/tenderness in the inferior mandible should be obtained as this is suboptimally assessed in this study. No acute cervical fractures or malalignment. Face CT 04/24/21 22:24 IMPRESSION: No evidence of acute intracranial abnormalities. No evidence of acute maxillofacial fractures. However, evaluation of the inferior mandibular body is limited due to motion and although no definite fractures or surrounding soft tissue thickening/hematoma are identified, clinical correlation for pain/tenderness in the inferior mandible should be obtained as this is suboptimally assessed in this study. No acute cervical fractures or malalignment. Head CT 04/24/21 22:24 IMPRESSION: No evidence of acute intracranial abnormalities. No evidence of acute maxillofacial fractures. However, evaluation of the inferior mandibular body is limited due to motion and although no definite fractures or surrounding soft tissue thickening/hematoma are identified, clinical correlation for pain/tenderness in the inferior mandible should be obtained as this is suboptimally assessed in this study. No acute cervical fractures or malalignment. Medications Medications Current Medications Acetaminophen (Acetaminophen 325 Mg Tablet) 650 mg PO Q6H PRN PRN Reason: Headache/Pain Mild Scale (1-3) Last Admin: 05/21/21 21:14 Dose: 650 mg Documented by: Al Hydroxide/Mg Hydroxide (Magnesium Hydrox/Alum Hydrox 30 Ml Oral.Susp) 30 ml PO Q6H PRN PRN Reason: Heartburn/Nausea Last Admin: 05/27/21 00:13 Dose: 30 ml Documented by: Benztropine Mesylate (Benztropine Mesylate 1 Mg Tablet) 1 mg PO TID PRN PRN Reason: Extrapyramidal Effects Chlorpromazine HCl (Chlorpromazine Hcl 100 Mg Tablet) 100 mg PO BID PRN PRN Reason: psychotic agitation Last Admin: 06/03/21 20:44 Dose: 100 mg Documented by: Chlorpromazine HCl (Chlorpromazine Hcl 25 Mg Tablet) 75 mg PO BEDTIME MARGAUX Last Admin: 06/07/21 20:24 Dose: 75 mg Documented by: Diphenhydramine HCl (Diphenhydramine Hcl 25 Mg Tablet) 50 mg PO Q4H PRN PRN Reason: agitation Last Admin: 05/22/21 00:07 Dose: 50 mg Documented by: Hydroxyzine HCl (Hydroxyzine Hcl 25 Mg Tablet) 25 mg PO QID PRN PRN Reason: Anxiety Last Admin: 05/21/21 21:14 Dose: 25 mg Documented by: Ibuprofen (Ibuprofen 600 Mg Tablet) 600 mg PO Q4H PRN PRN Reason: Pain, Moderate (Pain Scale 4-6 Last Admin: 05/22/21 07:13 Dose: 600 mg Documented by: Magnesium Hydroxide (Milk Of Magnesia 30 Ml Oral.Susp) 30 ml PO DAILY PRN PRN Reason: Constipation Multi-Ingred Cream/Lotion/Oil/Oint (Mineral Oil/Petrolatum,White 106 Gm Tube) 1 appl TOPICAL TID [facility]; Protocol Last Admin: 06/08/21 08:30 Dose: Not Given Documented by: Nicotine (Nicotine 21 Mg Patch.Td24) 21 mg TRANSDERMA DAILY PRN PRN Reason: smoking cessation Nicotine Polacrilex (Nicotine Polacrilex 2 Mg Gum) 4 mg BUCCAL Q2H PRN PRN Reason: Nicotine Cravings Paliperidone (Paliperidone Er 6 Mg Tab.Er.24) 6 mg PO DAILY [facility] Last Admin: 06/08/21 08:30 Dose: 6 mg Documented by: Polyethylene Glycol (Polyethylene Glycol 3350 17 Gm Powd.Pack) 17 gm PO DAILY PRN PRN Reason: CONSTIPATION Senna (Sennosides 8.6 Mg Tablet) 17.2 mg PO BEDTIME [facility] Last Admin: 06/07/21 20:26 Dose: Not Given Documented by: Trazodone HCl (Trazodone Hcl 50 Mg Tablet) 50 mg PO BEDTIME PRN PRN Reason: Insomnia Allergies Allergies Allergy/AdvReac Type Severity Reaction Status Date / Time haloperidol [From HALDOL] Allergy Severe DYSTONIA Verified 04/19/21 06:28 ziprasidone [From GEODON] Allergy Severe DYSTONIA Verified 04/19/21 06:28 Assessment & Plan Assessment & Plan (1) Schizoaffective disorder, bipolar type: Status: Acute Code(s): F25.0 - Schizoaffective disorder, bipolar type Assessment and Plan: Continues with psychosis, aggressive agitation, lability of mood. Requiring restraint. Thorazine 50 mg tid with IM back up as needed Thorazine 100 mg bid prn with IM back up as needed. Initially, pt and I discussed an Abilify Maintena trial to address symptoms. From observation of pt's intensity of psychosis, agitation, lability, this does not appear to be the best agent to meet this level of symptom intensity. Will discuss with pt an Invega trial with transition to Sustenna during his hospitalization with initiation. 05/07/21 Invega 6 mg 05/08. Continue Thorazine prn. (pt required IM back up on 05/07/21) 05/08/21 Continue current plan of care. 05/09/21: Ct w plan per [facility] order 05/10/21: Ct Rx plan 05/11/21: Continue Invega titration. 05/12/21 Pt tolerating Invega. Will begin Sustenna on 05/13. 05/13/21 Sustanna given, tolerated. Support, educate, integrate into milieu for added support. 05/14/21 Tolerating Sustenna. Calmer, more focused today. Asking for help with legal issues, attempting to organize his responsibilities 05/15/21 Continue current plan. 05/16/21 Continue current plan 05/17/21 Continue current plan 05/18/21 Follow up with probation-pt agrees and signed JEANNETTE Second Sustenna injection 05/21. Tolerating with breakthrough sx with PO as well. 05/19/21 Team/Peers report evening/night agitation Depakote 500 mg ER HS 05/20/21 Continue current regime Scheduled Invega injection for 05/21 Continue to attempt alliance building, education, support 05/21/21 Continue current regimen, no changes to medication, will monitor for benefit on invega sustenna COKER. Still taking PO invega. Has not been taking PO depakote, so will not order a level. 05/22/21 Continue current regimen, pt is tolerating invega sustenna well. Not taking depakote. Appropriate on the unit. 05/23/21: No changes to above med plan. 05/24/21: No changes to above plan, continue PO invega until invega sustenna reaches steady state. Pt somewhat intrusive with high fiving staff but redirectable. 05/26/21: Continue current plan. Vibra application 05/27/21 Pt has been refusing Depakote at hs with resulting poor sleep. Will give Chlorpromazine IM if Depakote is refused. 05/28/21 Continue current plan Labs 06/01/20. 05/29/21 Continue with current plan 05/30/21 continue with current treatment plan 05/31/21 continue with current treatment plan 06/01/21 Discontinue Depakote-pt prefers Chlorpromazine at HS-50 mg as he reports it is more helpful with sleep quality assistance. 06/03/21: Education, support. Vibra application. 06/04/21: Increase Chlorpromazine to 75 mg HS to assist with mgt of lability. 06/05/21: Continue current regime 06/06 continue current medications 06/08/21: Team reports a reasonable weekend for pt. Continue current regime Continue to offer education regarding plan of care and rationale for plan of care (medicines, Vibra application, continuation with [facility], legal issues and process, probation requirements). I spent 25 minutes with the patient and/or on the patient floor today, greater than?50% of which was spent counseling/coordinating care. Patient educated on: therapeutic strategies Informed Consent: further education needed Reason for contiued inpatient stay Substantial Risk for: harm to self, harm to others, inability to function and rapid decompensation
[2021-06-08 18:00] VITALS: BP 116/68; PULSE 79; RESP 16; TEMP 36.6; O2SAT 100
[2021-06-08] MEDS: chlorproMAZINE HCl 25 MG TABLET 75 MG PO (21:00)
[2021-06-09 06:00] VITALS: BP 112/62; PULSE 77; RESP 18; TEMP 37.1; O2SAT 98
[2021-06-09] MEDS: Paliperidone ER 6 MG TAB.ER.24 PO (08:46)
[2021-06-09 20:10] VITALS: BP 114/61; PULSE 88; RESP 18; TEMP 36.9; O2SAT 98
[2021-06-09] MEDS: chlorproMAZINE HCl 25 MG TABLET 75 MG PO (20:14)
[2021-06-10 05:42] VITALS: BP 129/57; PULSE 90; RESP 16; TEMP 36.4; O2SAT 97
[2021-06-10] MEDS: Paliperidone ER 6 MG TAB.ER.24 PO (09:11)
--- NOTE | 2021-06-10 09:51 | HO.PSYCHPN ---
Subjective Subjective Date of Service: 06/09/21 Reason For Visit: Schizophrenia Subjective Notes: Conditional Voluntary Healthcare Proxy: No Guardianship: No Medical Problems Affecting Mental Status: No Interim History: Brief interactions with pt today to respond to questions-asks for a referral to a service to find an apartment-discussed plan to refer to [facility] with pt; asks for a new referral to [facility] for aftercare-discussed plan to do this as one of his care providers has left the agency and reminded pt of our meeting of 05/15 with [facility] where that plan was reviewed by his clinician. Reports feeling bored-hoping to have an opportunity to learn new skills during hospitalization-hopes to learn a new language-Japanese or Telugu. Medication Compliance: Yes Side effects from medications: No Attending Groups: Intermittent Review of Systems Acute medical concerns: No Review of Systems Review of Systems Yes all other systems are reviewed and are negative Reports behavioral changes Psychiatric: Reports abnormal sleep pattern, Reports anxiety, Reports behavioral changes, Reports depression, Reports difficulty concentrating, Reports auditory hallucinations, Reports hopelessness, Reports irritability, Reports mood swings, Reports paranoia, Reports visual hallucinations and Reports hallucinations Mental Status Exam Mental Status Exam Patient Appearance: Appropriate Patient Orientation: Person, Place, Time and Situation Level of Consciousness: Alert Patient Behavior: Talkative and Good Eye Contact Mood Description: Labile Affect Description: Labile Patient Cognition Impaired: No Ability to Follow Directions: Good Speech Pattern: Spontaneous Speech Memory Description: Episodic Impaired Hallucinations: Auditory and Visual Delusions: Paranoid Ideation and Present Perceptual Disturbances: Depersonalization and Derealization Thought Process: Distracted and Rumination Thought Content: positive for [place], positive for Circumstantial, positive for Goal Oriented, positive for Perseveration, positive for Preoccupation, positive for Loose Associations and positive for Tangential Depressive Symptoms: Increased Anxiety and Low Self Esteem Abnormal Motor Activity Signs and Symptoms: Restlessness Judgement: Poor Diagnostics Vital Signs (24Hr): Vital Signs - 24 hr 06/09/21 20:10 06/10/21 05:42 Temperature 98.5 F 97.5 F Pulse Rate 88 90 Respiratory Rate 18 16 Blood Pressure 114/61 129/57 L Pulse Oximetry 98 97 BMI result Body Mass Index 27.7 Labs Results: 06/01/21 07:51 06/01/21 07:51 Imaging Radiology Impressions: ITS Impressions Face X-Ray 04/21/21 15:29 IMPRESSION: No fracture seen. Orbit X-Ray 04/21/21 15:29 IMPRESSION: No fracture seen. Cervical Spine CT 04/24/21 22:24 IMPRESSION: No evidence of acute intracranial abnormalities. No evidence of acute maxillofacial fractures. However, evaluation of the inferior mandibular body is limited due to motion and although no definite fractures or surrounding soft tissue thickening/hematoma are identified, clinical correlation for pain/tenderness in the inferior mandible should be obtained as this is suboptimally assessed in this study. No acute cervical fractures or malalignment. Face CT 04/24/21 22:24 IMPRESSION: No evidence of acute intracranial abnormalities. No evidence of acute maxillofacial fractures. However, evaluation of the inferior mandibular body is limited due to motion and although no definite fractures or surrounding soft tissue thickening/hematoma are identified, clinical correlation for pain/tenderness in the inferior mandible should be obtained as this is suboptimally assessed in this study. No acute cervical fractures or malalignment. Head CT 04/24/21 22:24 IMPRESSION: No evidence of acute intracranial abnormalities. No evidence of acute maxillofacial fractures. However, evaluation of the inferior mandibular body is limited due to motion and although no definite fractures or surrounding soft tissue thickening/hematoma are identified, clinical correlation for pain/tenderness in the inferior mandible should be obtained as this is suboptimally assessed in this study. No acute cervical fractures or malalignment. Medications Medications Current Medications Acetaminophen (Acetaminophen 325 Mg Tablet) 650 mg PO Q6H PRN PRN Reason: Headache/Pain Mild Scale (1-3) Last Admin: 05/21/21 21:14 Dose: 650 mg Documented by: Al Hydroxide/Mg Hydroxide (Magnesium Hydrox/Alum Hydrox 30 Ml Oral.Susp) 30 ml PO Q6H PRN PRN Reason: Heartburn/Nausea Last Admin: 05/27/21 00:13 Dose: 30 ml Documented by: Benztropine Mesylate (Benztropine Mesylate 1 Mg Tablet) 1 mg PO TID PRN PRN Reason: Extrapyramidal Effects Chlorpromazine HCl (Chlorpromazine Hcl 100 Mg Tablet) 100 mg PO BID PRN PRN Reason: psychotic agitation Last Admin: 06/03/21 20:44 Dose: 100 mg Documented by: Chlorpromazine HCl (Chlorpromazine Hcl 25 Mg Tablet) 75 mg PO BEDTIME MARGAUX Last Admin: 06/09/21 20:14 Dose: 75 mg Documented by: Diphenhydramine HCl (Diphenhydramine Hcl 25 Mg Tablet) 50 mg PO Q4H PRN PRN Reason: agitation Last Admin: 05/22/21 00:07 Dose: 50 mg Documented by: Hydroxyzine HCl (Hydroxyzine Hcl 25 Mg Tablet) 25 mg PO QID PRN PRN Reason: Anxiety Last Admin: 05/21/21 21:14 Dose: 25 mg Documented by: Ibuprofen (Ibuprofen 600 Mg Tablet) 600 mg PO Q4H PRN PRN Reason: Pain, Moderate (Pain Scale 4-6 Last Admin: 05/22/21 07:13 Dose: 600 mg Documented by: Magnesium Hydroxide (Milk Of Magnesia 30 Ml Oral.Susp) 30 ml PO DAILY PRN PRN Reason: Constipation Multi-Ingred Cream/Lotion/Oil/Oint (Mineral Oil/Petrolatum,White 106 Gm Tube) 1 appl TOPICAL TID [facility]; Protocol Last Admin: 06/10/21 00:33 Dose: Not Given Documented by: Nicotine (Nicotine 21 Mg Patch.Td24) 21 mg TRANSDERMA DAILY PRN PRN Reason: smoking cessation Nicotine Polacrilex (Nicotine Polacrilex 2 Mg Gum) 4 mg BUCCAL Q2H PRN PRN Reason: Nicotine Cravings Paliperidone (Paliperidone Er 6 Mg Tab.Er.24) 6 mg PO DAILY [facility] Last Admin: 06/10/21 09:11 Dose: 6 mg Documented by: Polyethylene Glycol (Polyethylene Glycol 3350 17 Gm Powd.Pack) 17 gm PO DAILY PRN PRN Reason: CONSTIPATION Senna (Sennosides 8.6 Mg Tablet) 17.2 mg PO BEDTIME [facility] Last Admin: 06/09/21 20:15 Dose: Not Given Documented by: Trazodone HCl (Trazodone Hcl 50 Mg Tablet) 50 mg PO BEDTIME PRN PRN Reason: Insomnia Allergies Allergies Allergy/AdvReac Type Severity Reaction Status Date / Time haloperidol [From HALDOL] Allergy Severe DYSTONIA Verified 04/19/21 06:28 ziprasidone [From GEODON] Allergy Severe DYSTONIA Verified 04/19/21 06:28 Assessment & Plan Assessment & Plan (1) Schizoaffective disorder, bipolar type: Status: Acute Code(s): F25.0 - Schizoaffective disorder, bipolar type Assessment and Plan: Continues with psychosis, aggressive agitation, lability of mood. Requiring restraint. Thorazine 50 mg tid with IM back up as needed Thorazine 100 mg bid prn with IM back up as needed. Initially, pt and I discussed an Abilify Maintena trial to address symptoms. From observation of pt's intensity of psychosis, agitation, lability, this does not appear to be the best agent to meet this level of symptom intensity. Will discuss with pt an Invega trial with transition to Sustenna during his hospitalization with initiation. 05/07/21 Invega 6 mg 05/08. Continue Thorazine prn. (pt required IM back up on 05/07/21) 05/08/21 Continue current plan of care. 05/09/21: Ct w plan per [facility] order 05/10/21: Ct Rx plan 05/11/21: Continue Invega titration. 05/12/21 Pt tolerating Invega. Will begin Sustenna on 05/13. 05/13/21 Sustanna given, tolerated. Support, educate, integrate into milieu for added support. 05/14/21 Tolerating Sustenna. Calmer, more focused today. Asking for help with legal issues, attempting to organize his responsibilities 05/15/21 Continue current plan. 05/16/21 Continue current plan 05/17/21 Continue current plan 05/18/21 Follow up with probation-pt agrees and signed JEANNETTE Second Sustenna injection 05/21. Tolerating with breakthrough sx with PO as well. 05/19/21 Team/Peers report evening/night agitation Depakote 500 mg ER HS 05/20/21 Continue current regime Scheduled Invega injection for 05/21 Continue to attempt alliance building, education, support 05/21/21 Continue current regimen, no changes to medication, will monitor for benefit on invega sustenna COKER. Still taking PO invega. Has not been taking PO depakote, so will not order a level. 05/22/21 Continue current regimen, pt is tolerating invega sustenna well. Not taking depakote. Appropriate on the unit. 05/23/21: No changes to above med plan. 05/24/21: No changes to above plan, continue PO invega until invega sustenna reaches steady state. Pt somewhat intrusive with high fiving staff but redirectable. 05/26/21: Continue current plan. Vibra application 05/27/21 Pt has been refusing Depakote at hs with resulting poor sleep. Will give Chlorpromazine IM if Depakote is refused. 05/28/21 Continue current plan Labs 06/01/20. 05/29/21 Continue with current plan 05/30/21 continue with current treatment plan 05/31/21 continue with current treatment plan 06/01/21 Discontinue Depakote-pt prefers Chlorpromazine at HS-50 mg as he reports it is more helpful with sleep quality assistance. 06/03/21: Education, support. Vibra application. 06/04/21: Increase Chlorpromazine to 75 mg HS to assist with mgt of lability. 06/05/21: Continue current regime 06/06 continue current medications 06/09/21: Continue current plan of care Support, Educate, Inform, encourage pt's interests. I spent 20 minutes with the patient and/or on the patient floor today, greater than?50% of which was spent counseling/coordinating care. Patient educated on: therapeutic strategies Informed Consent: further education needed Reason for contiued inpatient stay Substantial Risk for: harm to self, harm to others, inability to function and rapid decompensation
--- NOTE | 2021-06-10 14:48 | HO.PSYCHPN ---
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 Reports intermittent vertigo when he attempts to spin fast . Finds this only on his left side. Team reports some breakthrough lability-screaming x 1. Continues with some delusional content-mood today is more subdued. Medication Compliance: Yes Side effects from medications: No Attending Groups: Intermittent Review of Systems Acute medical concerns: No Medical Review of Systems: unchanged Review of Systems Review of Systems Yes all other systems are reviewed and are negative Reports behavioral changes Psychiatric: Reports abnormal sleep pattern, Reports anxiety, Reports behavioral changes, Reports depression, Reports difficulty concentrating, Reports auditory hallucinations, Reports hopelessness, Reports irritability, Reports mood swings, Reports paranoia, Reports visual hallucinations and Reports hallucinations Mental Status Exam Mental Status Exam Patient Appearance: Appropriate Patient Orientation: Person, Place, Time and Situation Level of Consciousness: Alert Patient Behavior: Talkative and Good Eye Contact Mood Description: Labile Affect Description: Labile Patient Cognition Impaired: No Ability to Follow Directions: Good Speech Pattern: Spontaneous Speech Memory Description: Episodic Impaired Hallucinations: Auditory and Visual Delusions: Paranoid Ideation and Present Perceptual Disturbances: Depersonalization and Derealization Thought Process: Distracted and Rumination Thought Content: positive for [place], positive for Circumstantial, positive for Goal Oriented, positive for Perseveration, positive for Preoccupation, positive for Loose Associations and positive for Tangential Depressive Symptoms: Increased Anxiety and Low Self Esteem Abnormal Motor Activity Signs and Symptoms: Restlessness Judgement: Poor Diagnostics Vital Signs (24Hr): Vital Signs - 24 hr 06/09/21 20:10 06/10/21 05:42 Temperature 98.5 F 97.5 F Pulse Rate 88 90 Respiratory Rate 18 16 Blood Pressure 114/61 129/57 L Pulse Oximetry 98 97 BMI result Body Mass Index 27.7 Labs Results: 06/01/21 07:51 06/01/21 07:51 Imaging Radiology Impressions: ITS Impressions Face X-Ray 04/21/21 15:29 IMPRESSION: No fracture seen. Orbit X-Ray 04/21/21 15:29 IMPRESSION: No fracture seen. Cervical Spine CT 04/24/21 22:24 IMPRESSION: No evidence of acute intracranial abnormalities. No evidence of acute maxillofacial fractures. However, evaluation of the inferior mandibular body is limited due to motion and although no definite fractures or surrounding soft tissue thickening/hematoma are identified, clinical correlation for pain/tenderness in the inferior mandible should be obtained as this is suboptimally assessed in this study. No acute cervical fractures or malalignment. Face CT 04/24/21 22:24 IMPRESSION: No evidence of acute intracranial abnormalities. No evidence of acute maxillofacial fractures. However, evaluation of the inferior mandibular body is limited due to motion and although no definite fractures or surrounding soft tissue thickening/hematoma are identified, clinical correlation for pain/tenderness in the inferior mandible should be obtained as this is suboptimally assessed in this study. No acute cervical fractures or malalignment. Head CT 04/24/21 22:24 IMPRESSION: No evidence of acute intracranial abnormalities. No evidence of acute maxillofacial fractures. However, evaluation of the inferior mandibular body is limited due to motion and although no definite fractures or surrounding soft tissue thickening/hematoma are identified, clinical correlation for pain/tenderness in the inferior mandible should be obtained as this is suboptimally assessed in this study. No acute cervical fractures or malalignment. Medications Medications Current Medications Acetaminophen (Acetaminophen 325 Mg Tablet) 650 mg PO Q6H PRN PRN Reason: Headache/Pain Mild Scale (1-3) Last Admin: 05/21/21 21:14 Dose: 650 mg Documented by: Al Hydroxide/Mg Hydroxide (Magnesium Hydrox/Alum Hydrox 30 Ml Oral.Susp) 30 ml PO Q6H PRN PRN Reason: Heartburn/Nausea Last Admin: 05/27/21 00:13 Dose: 30 ml Documented by: Benztropine Mesylate (Benztropine Mesylate 1 Mg Tablet) 1 mg PO TID PRN PRN Reason: Extrapyramidal Effects Chlorpromazine HCl (Chlorpromazine Hcl 100 Mg Tablet) 100 mg PO BID PRN PRN Reason: psychotic agitation Last Admin: 06/03/21 20:44 Dose: 100 mg Documented by: Chlorpromazine HCl (Chlorpromazine Hcl 25 Mg Tablet) 75 mg PO BEDTIME MARGAUX Last Admin: 06/09/21 20:14 Dose: 75 mg Documented by: Diphenhydramine HCl (Diphenhydramine Hcl 25 Mg Tablet) 50 mg PO Q4H PRN PRN Reason: agitation Last Admin: 05/22/21 00:07 Dose: 50 mg Documented by: Hydroxyzine HCl (Hydroxyzine Hcl 25 Mg Tablet) 25 mg PO QID PRN PRN Reason: Anxiety Last Admin: 05/21/21 21:14 Dose: 25 mg Documented by: Ibuprofen (Ibuprofen 600 Mg Tablet) 600 mg PO Q4H PRN PRN Reason: Pain, Moderate (Pain Scale 4-6 Last Admin: 05/22/21 07:13 Dose: 600 mg Documented by: Magnesium Hydroxide (Milk Of Magnesia 30 Ml Oral.Susp) 30 ml PO DAILY PRN PRN Reason: Constipation Multi-Ingred Cream/Lotion/Oil/Oint (Mineral Oil/Petrolatum,White 106 Gm Tube) 1 appl TOPICAL TID MARGAXU; Protocol Last Admin: 06/10/21 10:12 Dose: Not Given Documented by: Nicotine (Nicotine 21 Mg Patch.Td24) 21 mg TRANSDERMA DAILY PRN PRN Reason: smoking cessation Nicotine Polacrilex (Nicotine Polacrilex 2 Mg Gum) 4 mg BUCCAL Q2H PRN PRN Reason: Nicotine Cravings Paliperidone (Paliperidone Er 6 Mg Tab.Er.24) 6 mg PO DAILY MARGAUX Last Admin: 06/10/21 09:11 Dose: 6 mg Documented by: Polyethylene Glycol (Polyethylene Glycol 3350 17 Gm Powd.Pack) 17 gm PO DAILY PRN PRN Reason: CONSTIPATION Senna (Sennosides 8.6 Mg Tablet) 17.2 mg PO BEDTIME MARGAUX Last Admin: 06/09/21 20:15 Dose: Not Given Documented by: Trazodone HCl (Trazodone Hcl 50 Mg Tablet) 50 mg PO BEDTIME PRN PRN Reason: Insomnia Allergies Allergies Allergy/AdvReac Type Severity Reaction Status Date / Time haloperidol [From HALDOL] Allergy Severe DYSTONIA Verified 04/19/21 06:28 ziprasidone [From GEODON] Allergy Severe DYSTONIA Verified 04/19/21 06:28 Assessment & Plan Assessment & Plan (1) Schizoaffective disorder, bipolar type: Status: Acute Code(s): F25.0 - Schizoaffective disorder, bipolar type Assessment and Plan: Continues with psychosis, aggressive agitation, lability of mood. Requiring restraint. Thorazine 50 mg tid with IM back up as needed Thorazine 100 mg bid prn with IM back up as needed. Initially, pt and I discussed an Abilify Maintena trial to address symptoms. From observation of pt's intensity of psychosis, agitation, lability, this does not appear to be the best agent to meet this level of symptom intensity. Will discuss with pt an Invega trial with transition to Sustenna during his hospitalization with initiation. 05/07/21 Invega 6 mg 05/08. Continue Thorazine prn. (pt required IM back up on 05/07/21) 05/08/21 Continue current plan of care. 05/09/21: Ct w plan per [facility] order 05/10/21: Ct Rx plan 05/11/21: Continue Invega titration. 05/12/21 Pt tolerating Invega. Will begin Sustenna on 05/13. 05/13/21 Sustanna given, tolerated. Support, educate, integrate into milieu for added support. 05/14/21 Tolerating Sustenna. Calmer, more focused today. Asking for help with legal issues, attempting to organize his responsibilities 05/15/21 Continue current plan. 05/16/21 Continue current plan 05/17/21 Continue current plan 05/18/21 Follow up with probation-pt agrees and signed JEANNETTE Second Sustenna injection 05/21. Tolerating with breakthrough sx with PO as well. 05/19/21 Team/Peers report evening/night agitation Depakote 500 mg ER HS 05/20/21 Continue current regime Scheduled Invega injection for 05/21 Continue to attempt alliance building, education, support 05/21/21 Continue current regimen, no changes to medication, will monitor for benefit on invega sustenna COKER. Still taking PO invega. Has not been taking PO depakote, so will not order a level. 05/22/21 Continue current regimen, pt is tolerating invega sustenna well. Not taking depakote. Appropriate on the unit. 05/23/21: No changes to above med plan. 05/24/21: No changes to above plan, continue PO invega until invega sustenna reaches steady state. Pt somewhat intrusive with high fiving staff but redirectable. 05/26/21: Continue current plan. Vibra application 05/27/21 Pt has been refusing Depakote at hs with resulting poor sleep. Will give Chlorpromazine IM if Depakote is refused. 05/28/21 Continue current plan Labs 06/01/20. 05/29/21 Continue with current plan 05/30/21 continue with current treatment plan 05/31/21 continue with current treatment plan 06/01/21 Discontinue Depakote-pt prefers Chlorpromazine at HS-50 mg as he reports it is more helpful with sleep quality assistance. 06/03/21: Education, support. Vibra application. 06/04/21: Increase Chlorpromazine to 75 mg HS to assist with mgt of lability. 06/05/21: Continue current regime 06/06 continue current medications 06/09/21: Continue current plan of care Support, Educate, Inform, encourage pt's interests. 06/10/21: Continue current plan. I spent 25 minutes with the patient and/or on the patient floor today, greater than?50% of which was spent counseling/coordinating care. Patient educated on: therapeutic strategies Informed Consent: further education needed Reason for contiued inpatient stay Substantial Risk for: harm to self, harm to others, inability to function and rapid decompensation
[2021-06-10] MEDS: chlorproMAZINE HCl 25 MG TABLET 75 MG PO (22:49)
[2021-06-10 22:55] VITALS: BP 111/59; PULSE 80; TEMP 37.1; O2SAT 96
[2021-06-11 07:00] VITALS: BMI 28.0
[2021-06-11] MEDS: Paliperidone ER 6 MG TAB.ER.24 PO (08:40)
[2021-06-11 11:39] VITALS: BP 109/61; PULSE 90; RESP 18; TEMP 36.6; O2SAT 97
--- NOTE | 2021-06-11 17:56 | P.PNPSI_ITS ---
Subjective Subjective Date of Service: 06/11/21 Reason For Visit: Schizophrenia Subjective Notes: Section 8 Healthcare Proxy: No Guardianship: No Medical Problems Affecting Mental Status: No Interim History: Pt more engaged in milieu today-asked to meet at 1pm-then changed his mind-talking on the phone, showering, attending a milieu activity with a peer. I am sorry I don't have time for you today he reported. Medication Compliance: Yes Side effects from medications: No Attending Groups: Intermittent Review of Systems Acute medical concerns: No Medical Review of Systems: unchanged Review of Systems Review of Systems Yes all other systems are reviewed and are negative Reports behavioral changes Psychiatric: Reports abnormal sleep pattern, Reports anxiety, Reports behavioral changes, Reports depression, Reports difficulty concentrating, Reports auditory hallucinations, Reports hopelessness, Reports irritability, Reports mood swings, Reports paranoia, Reports visual hallucinations and Reports hallucinations Mental Status Exam Mental Status Exam Patient Appearance: Appropriate Patient Orientation: Person, Place, Time and Situation Level of Consciousness: Alert Patient Behavior: Talkative and Good Eye Contact Mood Description: Labile Affect Description: Labile Patient Cognition Impaired: No Ability to Follow Directions: Good Speech Pattern: Spontaneous Speech Memory Description: Episodic Impaired Hallucinations: Auditory and Visual Delusions: Paranoid Ideation and Present Perceptual Disturbances: Depersonalization and Derealization Thought Process: Distracted and Rumination Thought Content: positive for [place], positive for Circumstantial, positive for Goal Oriented, positive for Perseveration, positive for Preoccupation, p ositive for Loose Associations and positive for Tangential Depressive Symptoms: Increased Anxiety and Low Self Esteem Abnormal Motor Activity Signs and Symptoms: Restlessness Judgement: Poor Diagnostics Vital Signs (24Hr): Vital Signs - 24 hr 06/10/21 22:55 06/11/21 11:39 Temperature 98.7 F 97.9 F Pulse Rate 80 90 Respiratory Rate 18 Blood Pressure 111/59 L 109/61 Pulse Oximetry 96 97 BMI result Body Mass Index 28.0 Labs Results: 06/01/21 07:51 06/01/21 07:51 Imaging Radiology Impressions: ITS Impressions Face X-Ray 04/21/21 15:29 IMPRESSION: No fracture seen. Orbit X-Ray 04/21/21 15:29 IMPRESSION: No fracture seen. Cervical Spine CT 04/24/21 22:24 IMPRESSION: No evidence of acute intracranial abnormalities. No evidence of acute maxillofacial fractures. However, evaluation of the inferior mandibular body is limited due to motion and although no definite fractures or surrounding soft tissue thickening/hematoma are identified, clinical correlation for pain/tenderness in the inferior mandible should be obtained as this is suboptimally assessed in this study. No acute cervical fractures or malalignment. Face CT 04/24/21 22:24 IMPRESSION: No evidence of acute intracranial abnormalities. No evidence of acute maxillofacial fractures. However, evaluation of the inferior mandibular body is limited due to motion and although no definite fractures or surrounding soft tissue thickening/hematoma are identified, clinical correlation for pain/tenderness in the inferior mandible should be obtained as this is suboptimally assessed in this study. No acute cervical fractures or malalignment. Head CT 04/24/21 22:24 IMPRESSION: No evidence of acute intracranial abnormalities. No evidence of acute maxillofacial fractures. However, evaluation of the inferior mandibular body is limited due to motion and although no definite fractures or surrounding soft tissue thickening/hematoma are identified, clinical correlation for pain/tenderness in the inferior mandible should be obtained as this is suboptimally assessed in this study. No acute cervical fractures or malalignment. Medications Medications Current Medications Acetaminophen (Acetaminophen 325 Mg Tablet) 650 mg PO Q6H PRN PRN Reason: Headache/Pain Mild Scale (1-3) Last Admin: 05/21/21 21:14 Dose: 650 mg Documented by: Al Hydroxide/Mg Hydroxide (Magnesium Hydrox/Alum Hydrox 30 Ml Oral.Susp) 30 ml PO Q6H PRN PRN Reason: Heartburn/Nausea Last Admin: 05/27/21 00:13 Dose: 30 ml Documented by: Benztropine Mesylate (Benztropine Mesylate 1 Mg Tablet) 1 mg PO TID PRN PRN Reason: Extrapyramidal Effects Chlorpromazine HCl (Chlorpromazine Hcl 100 Mg Tablet) 100 mg PO BID PRN PRN Reason: psychotic agitation Last Admin: 06/03/21 20:44 Dose: 100 mg Documented by: Chlorpromazine HCl (Chlorpromazine Hcl 25 Mg Tablet) 75 mg PO BEDTIME MARGAUX Last Admin: 06/10/21 22:49 Dose: 75 mg Documented by: Diphenhydramine HCl (Diphenhydramine Hcl 25 Mg Tablet) 50 mg PO Q4H PRN PRN Reason: agitation Last Admin: 05/22/21 00:07 Dose: 50 mg Documented by: Hydroxyzine HCl (Hydroxyzine Hcl 25 Mg Tablet) 25 mg PO QID PRN PRN Reason: Anxiety Last Admin: 05/21/21 21:14 Dose: 25 mg Documented by: Ibuprofen (Ibuprofen 600 Mg Tablet) 600 mg PO Q4H PRN PRN Reason: Pain, Moderate (Pain Scale 4-6 Last Admin: 05/22/21 07:13 Dose: 600 mg Documented by: Magnesium Hydroxide (Milk Of Magnesia 30 Ml Oral.Susp) 30 ml PO DAILY PRN PRN Reason: Constipation Multi-Ingred Cream/Lotion/Oil/Oint (Mineral Oil/Petrolatum,White 106 Gm Tube) 1 appl TOPICAL TID MARGAUX; Protocol Last Admin: 06/11/21 13:40 Dose: Not Given Documented by: Nicotine (Nicotine 21 Mg Patch.Td24) 21 mg TRANSDERMA DAILY PRN PRN Reason: smoking cessation Nicotine Polacrilex (Nicotine Polacrilex 2 Mg Gum) 4 mg BUCCAL Q2H PRN PRN Reason: Nicotine Cravings Paliperidone (Paliperidone Er 6 Mg Tab.Er.24) 6 mg PO DAILY [facility] Last Admin: 06/11/21 08:40 Dose: 6 mg Documented by: Polyethylene Glycol (Polyethylene Glycol 3350 17 Gm Powd.Pack) 17 gm PO DAILY PRN PRN Reason: CONSTIPATION Senna (Sennosides 8.6 Mg Tablet) 17.2 mg PO BEDTIME [facility] Last Admin: 06/10/21 22:51 Dose: Not Given Documented by: Trazodone HCl (Trazodone Hcl 50 Mg Tablet) 50 mg PO BEDTIME PRN PRN Reason: Insomnia Allergies Allergies Allergy/AdvReac Type Severity Reaction Status Date / Time haloperidol [From HALDOL] Allergy Severe DYSTONIA Verified 04/19/21 06:28 ziprasidone [From GEODON] Allergy Severe DYSTONIA Verified 04/19/21 06:28 Assessment & Plan Assessment & Plan (1) Schizoaffective disorder, bipolar type: Status: Acute Code(s): F25.0 - Schizoaffective disorder, bipolar type Assessment and Plan: Continues with psychosis, aggressive agitation, lability of mood. Requiring restraint. Thorazine 50 mg tid with IM back up as needed Thorazine 100 mg bid prn with IM back up as needed. Initially, pt and I discussed an Abilify Maintena trial to address symptoms. From observation of pt's intensity of psychosis, agitation, lability, this does not appear to be the best agent to meet this level of symptom intensity. Will discuss with pt an Invega trial with transition to Sustenna during his hospitalization with initiation. 05/07/21 Invega 6 mg 05/08. Continue Thorazine prn. (pt required IM back up on 05/07/21) 05/08/21 Continue current plan of care. 05/09/21: Ct w plan per [facility] order 05/10/21: Ct Rx plan 05/11/21: Continue Invega titration. 05/12/21 Pt tolerating Invega. Will begin Sustenna on 05/13. 05/13/21 Sustanna given, tolerated. Support, educate, integrate into milieu for added support. 05/14/21 Tolerating Sustenna. Calmer, more focused today. Asking for help with legal issues, attempting to organize his responsibilities 05/15/21 Continue current plan. 05/16/21 Continue current plan 05/17/21 Continue current plan 05/18/21 Follow up with probation-pt agrees and signed JEANNETTE Second Sustenna injection 05/21. Tolerating with breakthrough sx with PO as well. 05/19/21 Team/Peers report evening/night agitation Depakote 500 mg ER HS 05/20/21 Continue current regime Scheduled Invega injection for 05/21 Continue to attempt alliance building, education, support 05/21/21 Continue current regimen, no changes to medication, will monitor for benefit on invega sustenna COKER. Still taking PO invega. Has not been taking PO depakote, so will not order a level. 05/22/21 Continue current regimen, pt is tolerating invega sustenna well. Not taking depakote. Appropriate on the unit. 05/23/21: No changes to above med plan. 05/24/21: No changes to above plan, continue PO invega until invega sustenna reaches steady state. Pt somewhat intrusive with high fiving staff but redirectable. 05/26/21: Continue current plan. Vibra application 05/27/21 Pt has been refusing Depakote at hs with resulting poor sleep. Will give Chlorpromazine IM if Depakote is refused. 05/28/21 Continue current plan Labs 06/01/20. 05/29/21 Continue with current plan 05/30/21 continue with current treatment plan 05/31/21 continue with current treatment plan 06/01/21 Discontinue Depakote-pt prefers Chlorpromazine at HS-50 mg as he reports it is more helpful with sleep quality assistance. 06/03/21: Education, support. Vibra application. 06/04/21: Increase Chlorpromazine to 75 mg HS to assist with mgt of lability. 06/05/21: Continue current regime 06/06 continue current medications 06/09/21: Continue current plan of care Support, Educate, Inform, encourage pt's interests. 06/11/21: More engaged in milieu today. Attentive to ADL's with team encouragement. Continue plan of care. I spent 20 minutes with the patient and/or on the patient floor today, greater than?50% of which was spent counseling/coordinating care. Informed Consent: further education needed Reason for contiued inpatient stay Substantial Risk for: harm to self, harm to others, inability to function and rapid decompensation
[2021-06-11 18:00] VITALS: BP 131/54; PULSE 68; RESP 18; TEMP 36.7; O2SAT 99
[2021-06-11] MEDS: chlorproMAZINE HCl 25 MG TABLET 75 MG PO (21:02)
[2021-06-12 05:43] VITALS: BP 110/68; PULSE 80; RESP 18; TEMP 36.5; O2SAT 98
[2021-06-12] MEDS: Paliperidone ER 6 MG TAB.ER.24 PO (09:32)
--- NOTE | 2021-06-12 17:16 | P.PNPSI_ITS ---
Subjective Subjective Date of Service: 06/12/21 Reason For Visit: Schizophrenia Subjective Notes: Section [employer] Proxy: No Guardianship: No Medical Problems Affecting Mental Status: No Interim History: Asif reviewed his meetings with [facility] and [facility]. States he would prefer [facility] vs. [facility]-discussed this with him and that his needs are too complex and detailed for respite at this time. Describes mood on the lower side which is better for me when I am calmer, I am clearer and can think clearly . Reports regime to be effective. Discussed wt at 190-looking to be at 175. Pleased with his sleep quality he reports. Medication Compliance: Yes Side effects from medications: No Attending Groups: Yes Review of Systems Acute medical concerns: No Medical Review of Systems: unchanged Review of Systems Reports behavioral changes, Reports confusion and Reports memory loss Psychiatric: Reports anxiety, Reports behavioral changes, Reports confusion, Reports depression, Reports difficulty concentrating, Reports auditory hallucinations, Reports irritability, Reports anhedonia, Reports memory loss, Reports mood swings, Reports paranoia, Reports visual hallucinations and Reports hallucinations Mental Status Exam Mental Status Exam Patient Appearance: Appropriate Patient Orientation: Person, Place, Time and Situation Level of Consciousness: Alert Patient Behavior: Talkative and Good Eye Contact Mood Description: Labile Affect Description: Labile Patient Cognition Impaired: No Ability to Follow Directions: Good Speech Pattern: Spontaneous Speech Memory Description: Episodic Impaired Hallucinations: Auditory and Visual Delusions: Paranoid Ideation and Present Perceptual Disturbances: Depersonalization and Derealization Thought Process: Distracted and Rumination Thought Content: positive for [place], positive for Circumstantial, positive for Goal Oriented, positive for Perseveration, positive for Preoccupation, positive for Loose Associations and positive for Tangential Depressive Symptoms: Increased Anxiety and Low Self Esteem Abnormal Motor Activity Signs and Symptoms: Restlessness Judgement: Poor Diagnostics Vital Signs (24Hr): Vital Signs - 24 hr 06/11/21 18:00 06/12/21 05:43 Temperature 98.0 F 97.7 F Pulse Rate 68 80 Respiratory Rate 18 18 Blood Pressure 131/54 L 110/68 Pulse Oximetry 99 98 BMI result Body Mass Index 28.0 Labs Results: 06/01/21 07:51 06/01/21 07:51 Imaging Radiology Impressions: ITS Impressions Face X-Ray 04/21/21 15:29 IMPRESSION: No fracture seen. Orbit X-Ray 04/21/21 15:29 IMPRESSION: No fracture seen. Cervical Spine CT 04/24/21 22:24 IMPRESSION: No evidence of acute intracranial abnormalities. No evidence of acute maxillofacial fractures. However, evaluation of the inferior mandibular body is limited due to motion and although no definite fractures or surrounding soft tissue thickening/hematoma are identified, clinical correlation for pain/tenderness in the inferior mandible should be obtained as this is suboptimally assessed in this study. No acute cervical fractures or malalignment. Face CT 04/24/21 22:24 IMPRESSION: No evidence of acute intracranial abnormalities. No evidence of acute maxillofacial fractures. However, evaluation of the inferior mandibular body is limited due to motion and although no definite fractures or surrounding soft tissue thickening/hematoma are identified, clinical correlation for pain/tenderness in the inferior mandible should be obtained as this is suboptimally assessed in this study. No acute cervical fractures or malalignment. Head CT 04/24/21 22:24 IMPRESSION: No evidence of acute intracranial abnormalities. No evidence of acute maxillofacial fractures. However, evaluation of the inferior mandibular body is limited due to motion and although no definite fractures or surrounding soft tissue thickening/hematoma are identified, clinical correlation for pain/tenderness in the inferior mandible should be obtained as this is suboptimally assessed in this study. No acute cervical fractures or malalignment. Medications Medications Current Medications Acetaminophen (Acetaminophen 325 Mg Tablet) 650 mg PO Q6H PRN PRN Reason: Headache/Pain Mild Scale (1-3) Last Admin: 05/21/21 21:14 Dose: 650 mg Documented by: Al Hydroxide/Mg Hydroxide (Magnesium Hydrox/Alum Hydrox 30 Ml Oral.Susp) 30 ml PO Q6H PRN PRN Reason: Heartburn/Nausea Last Admin: 05/27/21 00:13 Dose: 30 ml Documented by: Benztropine Mesylate (Benztropine Mesylate 1 Mg Tablet) 1 mg PO TID PRN PRN Reason: Extrapyramidal Effects Chlorpromazine HCl (Chlorpromazine Hcl 100 Mg Tablet) 100 mg PO BID PRN PRN Reason: psychotic agitation Last Admin: 06/03/21 20:44 Dose: 100 mg Documented by: Chlorpromazine HCl (Chlorpromazine Hcl 25 Mg Tablet) 75 mg PO BEDTIME [facility] Last Admin: 06/11/21 21:02 Dose: 75 mg Documented by: Diphenhydramine HCl (Diphenhydramine Hcl 25 Mg Tablet) 50 mg PO Q4H PRN PRN Reason: agitation Last Admin: 05/22/21 00:07 Dose: 50 mg Documented by: Hydroxyzine HCl (Hydroxyzine Hcl 25 Mg Tablet) 25 mg PO QID PRN PRN Reason: Anxiety Last Admin: 05/21/21 21:14 Dose: 25 mg Documented by: Ibuprofen (Ibuprofen 600 Mg Tablet) 600 mg PO Q4H PRN PRN Reason: Pain, Moderate (Pain Scale 4-6 Last Admin: 05/22/21 07:13 Dose: 600 mg Documented by: Magnesium Hydroxide (Milk Of Magnesia 30 Ml Oral.Susp) 30 ml PO DAILY PRN PRN Reason: Constipation Multi-Ingred Cream/Lotion/Oil/Oint (Mineral Oil/Petrolatum,White 106 Gm Tube) 1 appl TOPICAL TID [facility]; Protocol Last Admin: 06/12/21 14:24 Dose: Not Given Documented by: Nicotine (Nicotine 21 Mg Patch.Td24) 21 mg TRANSDERMA DAILY PRN PRN Reason: smoking cessation Nicotine Polacrilex (Nicotine Polacrilex 2 Mg Gum) 4 mg BUCCAL Q2H PRN PRN Reason: Nicotine Cravings Paliperidone (Paliperidone Er 6 Mg Tab.Er.24) 6 mg PO DAILY [facility] Last Admin: 06/12/21 09:32 Dose: 6 mg Documented by: Polyethylene Glycol (Polyethylene Glycol 3350 17 Gm Powd.Pack) 17 gm PO DAILY PRN PRN Reason: CONSTIPATION Senna (Sennosides 8.6 Mg Tablet) 17.2 mg PO BEDTIME [facility] Last Admin: 06/11/21 21:04 Dose: Not Given Documented by: Trazodone HCl (Trazodone Hcl 50 Mg Tablet) 50 mg PO BEDTIME PRN PRN Reason: Insomnia Allergies Allergies Allergy/AdvReac Type Severity Reaction Status Date / Time haloperidol [From HALDOL] Allergy Severe DYSTONIA Verified 04/19/21 06:28 ziprasidone [From GEODON] Allergy Severe DYSTONIA Verified 04/19/21 06:28 Assessment & Plan Assessment & Plan (1) Schizoaffective disorder, bipolar type: Status: Acute Code(s): F25.0 - Schizoaffective disorder, bipolar type Assessment and Plan: Continues with psychosis, aggressive agitation, lability of mood. Requiring restraint. Thorazine 50 mg tid with IM back up as needed Thorazine 100 mg bid prn with IM back up as needed. Initially, pt and I discussed an Abilify Maintena trial to address symptoms. From observation of pt's intensity of psychosis, agitation, lability, this does not appear to be the best agent to meet this level of symptom intensity. Will discuss with pt an Invega trial with transition to Sustenna during his hospitalization with initiation. 05/07/21 Invega 6 mg 05/08. Continue Thorazine prn. (pt required IM back up on 05/07/21) 05/08/21 Continue current plan of care. 05/09/21: Ct w plan per [facility] order 05/10/21: Ct Rx plan 05/11/21: Continue Invega titration. 05/12/21 Pt tolerating Invega. Will begin Sustenna on 05/13. 05/13/21 Sustanna given, tolerated. Support, educate, integrate into milieu for added support. 05/14/21 Tolerating Sustenna. Calmer, more focused today. Asking for help with legal issues, attempting to organize his responsibilities 05/15/21 Continue current plan. 05/16/21 Continue current plan 05/17/21 Continue current plan 05/18/21 Follow up with probation-pt agrees and signed JEANNETTE Second Sustenna injection 05/21. Tolerating with breakthrough sx with PO as well. 05/19/21 Team/Peers report evening/night agitation Depakote 500 mg ER HS 05/20/21 Continue current regime Scheduled Invega injection for 05/21 Continue to attempt alliance building, education, support 05/21/21 Continue current regimen, no changes to medication, will monitor for benefit on invega sustenna COKER. Still taking PO invega. Has not been taking PO depakote, so will not order a level. 05/22/21 Continue current regimen, pt is tolerating invega sustenna well. Not taking depakote. Appropriate on the unit. 05/23/21: No changes to above med plan. 05/24/21: No changes to above plan, continue PO invega until invega sustenna reaches steady state. Pt somewhat intrusive with high fiving staff but redirectable. 05/26/21: Continue current plan. [facility] application 05/27/21 Pt has been refusing Depakote at hs with resulting poor sleep. Will give Chlorpromazine IM if Depakote is refused. 05/28/21 Continue current plan Labs 06/01/20. 05/29/21 Continue with current plan 05/30/21 continue with current treatment plan 05/31/21 continue with current treatment plan 06/01/21 Discontinue Depakote-pt prefers Chlorpromazine at HS-50 mg as he reports it is more helpful with sleep quality assistance. 06/03/21: Education, support. [facility] application. 06/04/21: Increase Chlorpromazine to 75 mg HS to assist with mgt of lability. 06/05/21: Continue current regime 06/06 continue current medications 06/09/21: Continue current plan of care Support, Educate, Inform, encourage pt's interests. 06/11/21: More engaged in milieu today. Attentive to ADL's with team enc ouragement. Continue plan of care. 06/12/21: Continue current regime. Sustenna due 06/21/21. I spent 25 minutes with the patient and/or on the patient floor today, greater than?50% of which was spent counseling/coordinating care. Patient educated on: medication risk/benefits and therapeutic strategies Informed Consent: further education needed Reason for contiued inpatient stay Substantial Risk for: harm to self, harm to others, inability to function and rapid decompensation
[2021-06-12 20:06] VITALS: BP 110/60; PULSE 69; RESP 16; TEMP 37; O2SAT 99
[2021-06-12] MEDS: chlorproMAZINE HCl 25 MG TABLET 75 MG PO (20:24)
[2021-06-13] MEDS: Paliperidone ER 6 MG TAB.ER.24 PO (08:48)
--- NOTE | 2021-06-13 16:39 | HO.PSYCHPN ---
Subjective Subjective Date of Service: 06/13/21 Reason For Visit: Schizophrenia Interim History: Patient said that he is overall doing well. He asked content writer about going to respite instead of [facility]. Laboratory Secretary explained that this is something he will need to discuss with his primary provider to which patient asked if content writer would please communicate his request; content writer agreed. Patient says he is otherwise sleeping well, eating well and has no complaints or requests. Staff has witnessed patient continuing to be internally preoccupied and self dialoguing. Mental Status Exam Mental Status Exam Narrative: Patient Appearance:?Appropriate Patient Orientation:?Person, Place, Time and Situation Level of Consciousness:?Alert Patient Behavior:?Talkative and Good Eye Contact, friendly Mood Description:? good Affect Description:?congruent Patient Cognition Impaired:?No Ability to Follow Directions:?Good Speech Pattern:?Spontaneous Speech Memory Description:?Episodic Impaired Hallucinations:?Auditory and Visual Delusions:?Paranoid Ideation Perceptual Disturbances:?Depersonalization and Derealization Thought Process:?Distracted and Rumination Thought Content:?positive for [place], positive for Circumstantial, positive for Goal Oriented, positive for Perseveration, positive for Preoccupation, positive for Loose Associations and positive for Tangential Depressive Symptoms:?Increased Anxiety and Low Self Esteem Abnormal Motor Activity Signs and Symptoms:?Restlessness Judgement:?Poor Diagnostics Vital Signs (24Hr): Vital Signs - 24 hr 06/12/21 20:06 Temperature 98.6 F Pulse Rate 69 Respiratory Rate 16 Blood Pressure 110/60 Pulse Oximetry 99 BMI result Body Mass Index 28.0 Labs Results: 06/01/21 07:51 06/01/21 07:51 Imaging Radiology Impressions: ITS Impressions Face X-Ray 04/21/21 15:29 IMPRESSION: No fracture seen. Orbit X-Ray 04/21/21 15:29 IMPRESSION: No fracture seen. Cervical Spine CT 04/24/21 22:24 IMPRESSION: No evidence of acute intracranial abnormalities. No evidence of acute maxillofacial fractures. However, evaluation of the inferior mandibular body is limited due to motion and although no definite fractures or surrounding soft tissue thickening/hematoma are identified, clinical correlation for pain/tenderness in the inferior mandible should be obtained as this is suboptimally assessed in this study. No acute cervical fractures or malalignment. Face CT 04/24/21 22:24 IMPRESSION: No evidence of acute intracranial abnormalities. No evidence of acute maxillofacial fractures. However, evaluation of the inferior mandibular body is limited due to motion and although no definite fractures or surrounding soft tissue thickening/hematoma are identified, clinical correlation for pain/tenderness in the inferior mandible should be obtained as this is suboptimally assessed in this study. No acute cervical fractures or malalignment. Head CT 04/24/21 22:24 IMPRESSION: No evidence of acute intracranial abnormalities. No evidence of acute maxillofacial fractures. However, evaluation of the inferior mandibular body is limited due to motion and although no definite fractures or surrounding soft tissue thickening/hematoma are identified, clinical correlation for pain/tenderness in the inferior mandible should be obtained as this is suboptimally assessed in this study. No acute cervical fractures or malalignment. Medications Medications Current Medications Acetaminophen (Acetaminophen 325 Mg Tablet) 650 mg PO Q6H PRN PRN Reason: Headache/Pain Mild Scale (1-3) Last Admin: 05/21/21 21:14 Dose: 650 mg Documented by: Al Hydroxide/Mg Hydroxide (Magnesium Hydrox/Alum Hydrox 30 Ml Oral.Susp) 30 ml PO Q6H PRN PRN Reason: Heartburn/Nausea Last Admin: 05/27/21 00:13 Dose: 30 ml Documented by: Benztropine Mesylate (Benztropine Mesylate 1 Mg Tablet) 1 mg PO TID PRN PRN Reason: Extrapyramidal Effects Chlorpromazine HCl (Chlorpromazine Hcl 100 Mg Tablet) 100 mg PO BID PRN PRN Reason: psychotic agitation Last Admin: 06/03/21 20:44 Dose: 100 mg Documented by: Chlorpromazine HCl (Chlorpromazine Hcl 25 Mg Tablet) 75 mg PO BEDTIME [facility] Last Admin: 06/12/21 20:24 Dose: 75 mg Documented by: Diphenhydramine HCl (Diphenhydramine Hcl 25 Mg Tablet) 50 mg PO Q4H PRN PRN Reason: agitation Last Admin: 05/22/21 00:07 Dose: 50 mg Documented by: Hydroxyzine HCl (Hydroxyzine Hcl 25 Mg Tablet) 25 mg PO QID PRN PRN Reason: Anxiety Last Admin: 05/21/21 21:14 Dose: 25 mg Documented by: Ibuprofen (Ibuprofen 600 Mg Tablet) 600 mg PO Q4H PRN PRN Reason: Pain, Moderate (Pain Scale 4-6 Last Admin: 05/22/21 07:13 Dose: 600 mg Documented by: Magnesium Hydroxide (Milk Of Magnesia 30 Ml Oral.Susp) 30 ml PO DAILY PRN PRN Reason: Constipation Multi-Ingred Cream/Lotion/Oil/Oint (Mineral Oil/Petrolatum,White 106 Gm Tube) 1 appl TOPICAL TID [facility]; Protocol Last Admin: 06/13/21 13:58 Dose: Not Given Documented by: Nicotine (Nicotine 21 Mg Patch.Td24) 21 mg TRANSDERMA DAILY PRN PRN Reason: smoking cessation Nicotine Polacrilex (Nicotine Polacrilex 2 Mg Gum) 4 mg BUCCAL Q2H PRN PRN Reason: Nicotine Cravings Paliperidone (Paliperidone Er 6 Mg Tab.Er.24) 6 mg PO DAILY [facility] Last Admin: 06/13/21 08:48 Dose: 6 mg Documented by: Polyethylene Glycol (Polyethylene Glycol 3350 17 Gm Powd.Pack) 17 gm PO DAILY PRN PRN Reason: CONSTIPATION Senna (Sennosides 8.6 Mg Tablet) 17.2 mg PO BEDTIME [facility] Last Admin: 06/12/21 20:26 Dose: Not Given Documented by: Trazodone HCl (Trazodone Hcl 50 Mg Tablet) 50 mg PO BEDTIME PRN PRN Reason: Insomnia Allergies Allergies Allergy/AdvReac Type Severity Reaction Status Date / Time haloperidol [From HALDOL] Allergy Severe DYSTONIA Verified 04/19/21 06:28 ziprasidone [From GEODON] Allergy Severe DYSTONIA Verified 04/19/21 06:28 Assessment & Plan Assessment & Plan (1) Schizoaffective disorder, bipolar type: Status: Acute Code(s): F25.0 - Schizoaffective disorder, bipolar type Assessment and Plan: Continues with psychosis, aggressive agitation, lability of mood. Requiring restraint. Thorazine 50 mg tid with IM back up as needed Thorazine 100 mg bid prn with IM back up as needed. Initially, pt and I discussed an Abilify Maintena trial to address symptoms. From observation of pt's intensity of psychosis, agitation, lability, this does not appear to be the best agent to meet this level of symptom intensity. Will discuss with pt an Invega trial with transition to Sustenna during his hospitalization with initiation. 05/07/21 Invega 6 mg 05/08. Continue Thorazine prn. (pt required IM back up on 05/07/21) 05/08/21 Continue current plan of care. 05/09/21: Ct w plan per [facility] order 05/10/21: Ct Rx plan 05/11/21: Continue Invega titration. 05/12/21 Pt tolerating Invega. Will begin Sustenna on 05/13. 05/13/21 Sustanna given, tolerated. Support, educate, integrate into milieu for added support. 05/14/21 Tolerating Sustenna. Calmer, more focused today. Asking for help with legal issues, attempting to organize his responsibilities 05/15/21 Continue current plan. 05/16/21 Continue current plan 05/17/21 Continue current plan 05/18/21 Follow up with probation-pt agrees and signed JEANNETTE Second Sustenna injection 05/21. Tolerating with breakthrough sx with PO as well. 05/19/21 Team/Peers report evening/night agitation Depakote 500 mg ER HS 05/20/21 Continue current regime Scheduled Invega injection for 05/21 Continue to attempt alliance building, education, support 05/21/21 Continue current regimen, no changes to medication, will monitor for benefit on invega sustenna COKER. Still taking PO invega. Has not been taking PO depakote, so will not order a level. 05/22/21 Continue current regimen, pt is tolerating invega sustenna well. Not taking depakote. Appropriate on the unit. 05/23/21: No changes to above med plan. 05/24/21: No changes to above plan, continue PO invega until invega sustenna reaches steady state. Pt somewhat intrusive with high fiving staff but redirectable. 05/26/21: Continue current plan. [facility] application 05/27/21 Pt has been refusing Depakote at hs with resulting poor sleep. Will give Chlorpromazine IM if Depakote is refused. 05/28/21 Continue current plan Labs 06/01/20. 05/29/21 Continue with current plan 05/30/21 continue with current treatment plan 05/31/21 continue with current treatment plan 06/01/21 Discontinue Depakote-pt prefers Chlorpromazine at HS-50 mg as he reports it is more helpful with sleep quality assistance. 06/03/21: Education, support. [facility] application. 06/04/21: Increase Chlorpromazine to 75 mg HS to assist with mgt of lability. 06/05/21: Continue current regime 06/06 continue current medications 06/09/21: Continue current plan of care Support, Educate, Inform, encourage pt's interests. 06/11/21: More engaged in milieu today. Attentive to ADL's with team encouragement. Continue plan of care. 06/12/21: Continue current regime. Sustenna due 06/21/21. 06/13/21 No changes Continue with current treatment plan I spent minutes with the patient and/or on the patient floor today, greater than?50% of which was spent counseling/coordinating care. Reason for contiued inpatient stay Substantial Risk for: harm to others and rapid decompensation
[2021-06-13 18:00] VITALS: BP 114/76; PULSE 80; RESP 16; TEMP 36.6; O2SAT 99
[2021-06-13] MEDS: chlorproMAZINE HCl 25 MG TABLET 75 MG PO (21:10)
[2021-06-13] MEDS: Mineral Oil/Petrolatum,White 106 GM Tube 1 APPL TOPICAL (22:49)
[2021-06-14 06:00] VITALS: BP 140/61; PULSE 94; RESP 18; TEMP 37; O2SAT 98
[2021-06-14] MEDS: Paliperidone ER 6 MG TAB.ER.24 PO (08:38)
--- NOTE | 2021-06-14 16:46 | HO.PSYCHPN ---
Subjective Subjective Date of Service: 06/14/21 Reason For Visit: Schizophrenia Interim History: Patient reports he is doing well. The other day he thought he had athlete's foot but says that it has totally cleared up once he has applied lotion. Staff reports patient complained of auditory hallucinations saying he thought there was a radio under the bed however he was easily calmed down. Patient still witnessed responding to internal stimuli Mental Status Exam Mental Status Exam Narrative: Patient Appearance:?Appropriate Patient Orientation:?Person, Place, Time and Situation Level of Consciousness:?Alert Patient Behavior:?Talkative and Good Eye Contact, friendly Mood Description:? good Affect Description:?congruent Patient Cognition Impaired:?No Ability to Follow Directions:?Good Speech Pattern:?Spontaneous Speech Memory Description:?Episodic Impaired Hallucinations:?Auditory and Visual Delusions:?Paranoid Ideation Perceptual Disturbances:?Depersonalization and Derealization Thought Process:?Distracted and Rumination Thought Content:?positive for [place], positive for Circumstantial, positive for Goal Oriented, positive for Perseveration, positive for Preoccupation, positive for Loose Associations and positive for Tangential Depressive Symptoms:?Increased Anxiety and Low Self Esteem Abnormal Motor Activity Signs and Symptoms:?Restlessness Judgement:?Poor Diagnostics Vital Signs (24Hr): Vital Signs - 24 hr 06/13/21 18:00 06/14/21 06:00 Temperature 97.8 F 98.6 F Pulse Rate 80 94 Respiratory Rate 16 18 Blood Pressure 114/76 140/61 H Pulse Oximetry 99 98 BMI result Body Mass Index 28.0 Labs Results: 06/01/21 07:51 06/01/21 07:51 Imaging Radiology Impressions: ITS Impressions Face X-Ray 04/21/21 15:29 IMPRESSION: No fracture seen. Orbit X-Ray 04/21/21 15:29 IMPRESSION: No fracture seen. Cervical Spine CT 04/24/21 22:24 IMPRESSION: No evidence of acute intracranial abnormalities. No evidence of acute maxillofacial fractures. However, evaluation of the inferior mandibular body is limited due to motion and although no definite fractures or surrounding soft tissue thickening/hematoma are identified, clinical correlation for pain/tenderness in the inferior mandible should be obtained as this is suboptimally assessed in this study. No acute cervical fractures or malalignment. Face CT 04/24/21 22:24 IMPRESSION: No evidence of acute intracranial abnormalities. No evidence of acute maxillofacial fractures. However, evaluation of the inferior mandibular body is limited due to motion and although no definite fractures or surrounding soft tissue thickening/hematoma are identified, clinical correlation for pain/tenderness in the inferior mandible should be obtained as this is suboptimally assessed in this study. No acute cervical fractures or malalignment. Head CT 04/24/21 22:24 IMPRESSION: No evidence of acute intracranial abnormalities. No evidence of acute maxillofacial fractures. However, evaluation of the inferior mandibular body is limited due to motion and although no definite fractures or surrounding soft tissue thickening/hematoma are identified, clinical correlation for pain/tenderness in the inferior mandible should be obtained as this is suboptimally assessed in this study. No acute cervical fractures or malalignment. Medications Medications Current Medications Acetaminophen (Acetaminophen 325 Mg Tablet) 650 mg PO Q6H PRN PRN Reason: Headache/Pain Mild Scale (1-3) Last Admin: 05/21/21 21:14 Dose: 650 mg Documented by: Al Hydroxide/Mg Hydroxide (Magnesium Hydrox/Alum Hydrox 30 Ml Oral.Susp) 30 ml PO Q6H PRN PRN Reason: Heartburn/Nausea Last Admin: 05/27/21 00:13 Dose: 30 ml Documented by: Benztropine Mesylate (Benztropine Mesylate 1 Mg Tablet) 1 mg PO TID PRN PRN Reason: Extrapyramidal Effects Chlorpromazine HCl (Chlorpromazine Hcl 100 Mg Tablet) 100 mg PO BID PRN PRN Reason: psychotic agitation Last Admin: 06/03/21 20:44 Dose: 100 mg Documented by: Chlorpromazine HCl (Chlorpromazine Hcl 25 Mg Tablet) 75 mg PO BEDTIME [facility] Last Admin: 06/13/21 21:10 Dose: 75 mg Documented by: Diphenhydramine HCl (Diphenhydramine Hcl 25 Mg Tablet) 50 mg PO Q4H PRN PRN Reason: agitation Last Admin: 05/22/21 00:07 Dose: 50 mg Documented by: Hydroxyzine HCl (Hydroxyzine Hcl 25 Mg Tablet) 25 mg PO QID PRN PRN Reason: Anxiety Last Admin: 05/21/21 21:14 Dose: 25 mg Documented by: Ibuprofen (Ibuprofen 600 Mg Tablet) 600 mg PO Q4H PRN PRN Reason: Pain, Moderate (Pain Scale 4-6 Last Admin: 05/22/21 07:13 Dose: 600 mg Documented by: Magnesium Hydroxide (Milk Of Magnesia 30 Ml Oral.Susp) 30 ml PO DAILY PRN PRN Reason: Constipation Multi-Ingred Cream/Lotion/Oil/Oint (Mineral Oil/Petrolatum,White 106 Gm Tube) 1 appl TOPICAL TID [facility]; Protocol Last Admin: 06/14/21 15:06 Dose: Not Given Documented by: Nicotine (Nicotine 21 Mg Patch.Td24) 21 mg TRANSDERMA DAILY PRN PRN Reason: smoking cessation Nicotine Polacrilex (Nicotine Polacrilex 2 Mg Gum) 4 mg BUCCAL Q2H PRN PRN Reason: Nicotine Cravings Paliperidone (Paliperidone Er 6 Mg Tab.Er.24) 6 mg PO DAILY [facility] Last Admin: 06/14/21 08:38 Dose: 6 mg Documented by: Polyethylene Glycol (Polyethylene Glycol 3350 17 Gm Powd.Pack) 17 gm PO DAILY PRN PRN Reason: CONSTIPATION Senna (Sennosides 8.6 Mg Tablet) 17.2 mg PO BEDTIME [facility] Last Admin: 06/13/21 20:27 Dose: Not Given Documented by: Trazodone HCl (Trazodone Hcl 50 Mg Tablet) 50 mg PO BEDTIME PRN PRN Reason: Insomnia Allergies Allergies Allergy/AdvReac Type Severity Reaction Status Date / Time haloperidol [From HALDOL] Allergy Severe DYSTONIA Verified 04/19/21 06:28 ziprasidone [From GEODON] Allergy Severe DYSTONIA Verified 04/19/21 06:28 Assessment & Plan Assessment & Plan (1) Schizoaffective disorder, bipolar type: Status: Acute Code(s): F25.0 - Schizoaffective disorder, bipolar type Assessment and Plan: Continues with psychosis, aggressive agitation, lability of mood. Requiring restraint. Thorazine 50 mg tid with IM back up as needed Thorazine 100 mg bid prn with IM back up as needed. Initially, pt and I discussed an Abilify Maintena trial to address symptoms. From observation of pt's intensity of psychosis, agitation, lability, this does not appear to be the best agent to meet this level of symptom intensity. Will discuss with pt an Invega trial with transition to Sustenna during his hospitalization with initiation. 05/07/21 Invega 6 mg 05/08. Continue Thorazine prn. (pt required IM back up on 05/07/21) 05/08/21 Continue current plan of care. 05/09/21: Ct w plan per [facility]ff order 05/10/21: Ct Rx plan 05/11/21: Continue Invega titration. 05/12/21 Pt tolerating Invega. Will begin Sustenna on 05/13. 05/13/21 Sustanna given, tolerated. Support, educate, integrate into milieu for added support. 05/14/21 Tolerating Sustenna. Calmer, more focused today. Asking for help with legal issues, attempting to organize his responsibilities 05/15/21 Continue current plan. 05/16/21 Continue current plan 05/17/21 Continue current plan 05/18/21 Follow up with probation-pt agrees and signed JEANNETTE Second Sustenna injection 05/21. Tolerating with breakthrough sx with PO as well. 05/19/21 Team/Peers report evening/night agitation Depakote 500 mg ER HS 05/20/21 Continue current regime Scheduled Invega injection for 05/21 Continue to attempt alliance building, education, support 05/21/21 Continue current regimen, no changes to medication, will monitor for benefit on invega sustenna COKER. Still taking PO invega. Has not been taking PO depakote, so will not order a level. 05/22/21 Continue current regimen, pt is tolerating invega sustenna well. Not taking depakote. Appropriate on the unit. 05/23/21: No changes to above med plan. 05/24/21: No changes to above plan, continue PO invega until invega sustenna reaches steady state. Pt somewhat intrusive with high fiving staff but redirectable. 05/26/21: Continue current plan. [facility] application 05/27/21 Pt has been refusing Depakote at hs with resulting poor sleep. Will give Chlorpromazine IM if Depakote is refused. 05/28/21 Continue current plan Labs 06/01/20. 05/29/21 Continue with current plan 05/30/21 continue with current treatment plan 05/31/21 continue with current treatment plan 06/01/21 Discontinue Depakote-pt prefers Chlorpromazine at HS-50 mg as he reports it is more helpful with sleep quality assistance. 06/03/21: Education, support. Vibra application. 06/04/21: Increase Chlorpromazine to 75 mg HS to assist with mgt of lability. 06/05/21: Continue current regime 06/06 continue current medications 06/09/21: Continue current plan of care Support, Educate, Inform, encourage pt's interests. 06/11/21: More engaged in milieu today. Attentive to ADL's with team encouragement. Continue plan of care. 06/12/21: Continue current regime. Sustenna due 06/21/21. 06/13/21 - 06/14/21 No changes Continue with current treatment plan I spent minutes with the patient and/or on the patient floor today, greater than?50% of which was spent counseling/coordinating care. Reason for contiued inpatient stay Substantial Risk for: harm to others
[2021-06-14 19:40] VITALS: BP 134/61; PULSE 86; TEMP 37.2; O2SAT 95
[2021-06-14] MEDS: chlorproMAZINE HCl 25 MG TABLET 75 MG PO (21:45)
[2021-06-15 06:00] VITALS: BP 103/58; PULSE 112; RESP 18; TEMP 36.5; O2SAT 98
[2021-06-15] MEDS: Paliperidone ER 6 MG TAB.ER.24 PO (08:21)
--- NOTE | 2021-06-15 16:35 | P.PNPSI_ITS ---
Subjective Subjective Date of Service: 06/15/21 Reason For Visit: Schizophrenia Subjective Notes: Section 8 Healthcare Proxy: No Guardianship: No Medical Problems Affecting Mental Status: No Interim History: Met with pt and Tanisha LUND. Pt discussed not wanting admission to [facility], but respite instead. Discussed reasoning for [facility]-discussed upcoming court date for significant cedrick ges of disarming an officer and concern about plan of care and its effects upon outcome of court. Pt persists Discussed telepathic communication with girlfriend and their plans post discharge. Medication Compliance: Yes Side effects from medications: No Attending Groups: Intermittent Review of Systems Acute medical concerns: No Medical Review of Systems: unchanged Review of Systems Reports memory loss Psychiatric: Reports anxiety, Reports depression, Reports difficulty concentrating, Reports auditory hallucinations, Reports hopelessness, Reports irritability, Reports anhedonia, Reports memory loss, Reports mood swings, Reports paranoia, Reports visual hallucinations and Reports hallucinations Mental Status Exam Mental Status Exam Patient Appearance: Appropriate Patient Orientation: Person, Place, Time and Situation Level of Consciousness: Alert Patient Behavior: Talkative, Anxious, Fearful, Distractible and Good Eye Contact Mood Description: Labile and Sad Affect Description: Labile Patient Cognition Impaired: Yes Ability to Follow Directions: Fair Speech Pattern: Spontaneous Speech and Soft-Spoken Memory Description: Remote Impaired and Episodic Impaired Hallucinations: Auditory Delusions: Paranoid Ideation, Grandiose and Present Perceptual Disturbances: Hallucinations Thought Process: Illogical and Distracted Thought Content: positive for [place], positive for Circumstantial, positive for Perseveration, positive for Preoccupation and positive for Tangential Depressive Symptoms: Increased Anxiety, Increased Irritability, Unhappiness and Difficulty Concentrating Abnormal Motor Activity Signs and Symptoms: Restlessness Judgement: Poor Diagnostics Vital Signs (24Hr): Vital Signs - 24 hr 06/14/21 19:40 06/15/21 06:00 Temperature 98.9 F 97.7 F Pulse Rate 86 112 H Respiratory Rate 18 Blood Pressure 134/61 103/58 L Pulse Oximetry 95 98 BMI result Body Mass Index 28.0 Labs Results: 06/01/21 07:51 06/01/21 07:51 Imaging Radiology Impressions: ITS Impressions Face X-Ray 04/21/21 15:29 IMPRESSION: No fracture seen. Orbit X-Ray 04/21/21 15:29 IMPRESSION: No fracture seen. Cervical Spine CT 04/24/21 22:24 IMPRESSION: No evidence of acute intracranial abnormalities. No evidence of acute maxillofacial fractures. However, evaluation of the inferior mandibular body is limited due to motion and although no definite fractures or surrounding soft tissue thickening/hematoma are identified, clinical correlation for pain/tenderness in the inferior mandible should be obtained as this is suboptimally assessed in this study. No acute cervical fractures or malalignment. Face CT 04/24/21 22:24 IMPRESSION: No evidence of acute intracranial abnormalities. No evidence of acute maxillofacial fractures. However, evaluation of the inferior mandibular body is limited due to motion and although no definite fractures or surrounding soft tissue thickening/hematoma are identified, clinical correlation for pain/tenderness in the inferior mandible should be obtained as this is suboptimally assessed in this study. No acute cervical fractures or malalignment. Head CT 04/24/21 22:24 IMPRESSION: No evidence of acute intracranial abnormalities. No evidence of acute maxillofacial fractures. However, evaluation of the inferior mandibular body is limited due to motion and although no definite fractures or surrounding soft tissue thickening/hematoma are identified, clinical correlation for pain/tenderness in the inferior mandible should be obtained as this is suboptimally assessed in this study. No acute cervical fractures or malalignment. Medications Medications Current Medications Acetaminophen (Acetaminophen 325 Mg Tablet) 650 mg PO Q6H PRN PRN Reason: Headache/Pain Mild Scale (1-3) Last Admin: 05/21/21 21:14 Dose: 650 mg Documented by: Al Hydroxide/Mg Hydroxide (Magnesium Hydrox/Alum Hydrox 30 Ml Oral.Susp) 30 ml PO Q6H PRN PRN Reason: Heartburn/Nausea Last Admin: 05/27/21 00:13 Dose: 30 ml Documented by: Benztropine Mesylate (Benztropine Mesylate 1 Mg Tablet) 1 mg PO TID PRN PRN Reason: Extrapyramidal Effects Chlorpromazine HCl (Chlorpromazine Hcl 100 Mg Tablet) 100 mg PO BID PRN PRN Reason: psychotic agitation Last Admin: 06/03/21 20:44 Dose: 100 mg Documented by: Chlorpromazine HCl (Chlorpromazine Hcl 25 Mg Tablet) 75 mg PO BEDTIME [facility] Last Admin: 06/14/21 21:45 Dose: 75 mg Documented by: Diphenhydramine HCl (Diphenhydramine Hcl 25 Mg Tablet) 50 mg PO Q4H PRN PRN Reason: agitation Last Admin: 05/22/21 00:07 Dose: 50 mg Documented by: Hydroxyzine HCl (Hydroxyzine Hcl 25 Mg Tablet) 25 mg PO QID PRN PRN Reason: Anxiety Last Admin: 05/21/21 21:14 Dose: 25 mg Documented by: Ibuprofen (Ibuprofen 600 Mg Tablet) 600 mg PO Q4H PRN PRN Reason: Pain, Moderate (Pain Scale 4-6 Last Admin: 05/22/21 07:13 Dose: 600 mg Documented by: Magnesium Hydroxide (Milk Of Magnesia 30 Ml Oral.Susp) 30 ml PO DAILY PRN PRN Reason: Constipation Multi-Ingred Cream/Lotion/Oil/Oint (Mineral Oil/Petrolatum,White 106 Gm Tube) 1 appl TOPICAL TID [facility]; Protocol Last Admin: 06/15/21 11:09 Dose: Not Given Documented by: Nicotine (Nicotine 21 Mg Patch.Td24) 21 mg TRANSDERMA DAILY PRN PRN Reason: smoking cessation Nicotine Polacrilex (Nicotine Polacrilex 2 Mg Gum) 4 mg BUCCAL Q2H PRN PRN Reason: Nicotine Cravings Paliperidone (Paliperidone Er 6 Mg Tab.Er.24) 6 mg PO DAILY [facility] Last Admin: 06/15/21 08:21 Dose: 6 mg Documented by: Polyethylene Glycol (Polyethylene Glycol 3350 17 Gm Powd.Pack) 17 gm PO DAILY PRN PRN Reason: CONSTIPATION Senna (Sennosides 8.6 Mg Tablet) 17.2 mg PO BEDTIME [facility] Last Admin: 06/14/21 21:48 Dose: Not Given Documented by: Trazodone HCl (Trazodone Hcl 50 Mg Tablet) 50 mg PO BEDTIME PRN PRN Reason: Insomnia Allergies Allergies Allergy/AdvReac Type Severity Reaction Status Date / Time haloperidol [From HALDOL] Allergy Severe DYSTONIA Verified 04/19/21 06:28 ziprasidone [From GEODON] Allergy Severe DYSTONIA Verified 04/19/21 06:28 Assessment & Plan Assessment & Plan (1) Schizoaffective disorder, bipolar type: Status: Acute Code(s): F25.0 - Schizoaffective disorder, bipolar type Assessment and Plan: Continues with psychosis, aggressive agitation, lability of mood. Requiring restraint. Thorazine 50 mg tid with IM back up as needed Thorazine 100 mg bid prn with IM back up as needed. Initially, pt and I discussed an Abilify Maintena trial to address symptoms. From observation of pt's intensity of psychosis, agitation, lability, this does not appear to be the best agent to meet this level of symptom intensity. Will discuss with pt an Invega trial with transition to Sustenna during his hospitalization with initiation. 05/07/21 Invega 6 mg 05/08. Continue Thorazine prn. (pt required IM back up on 05/07/21) 05/08/21 Continue current plan of care. 05/09/21: Ct w plan per [facility] order 05/10/21: Ct Rx plan 05/11/21: Continue Invega titration. 05/12/21 Pt tolerating Invega. Will begin Sustenna on 05/13. 05/13/21 Sustanna given, tolerated. Support, educate, integrate into milieu for added support. 05/14/21 Tolerating Sustenna. Calmer, more focused today. Asking for help with legal issues, attempting to organize his responsibilities 05/15/21 Continue current plan. 05/16/21 Continue current plan 05/17/21 Continue current plan 05/18/21 Follow up with probation-pt agrees and signed JEANNETTE Second Sustenna injection 05/21. Tolerating with breakthrough sx with PO as well. 05/19/21 Team/Peers report evening/night agitation Depakote 500 mg ER HS 05/20/21 Continue current regime Scheduled Invega injection for 05/21 Continue to attempt alliance building, education, support 05/21/21 Continue current regimen, no changes to medication, will monitor for benefit on invega sustenna COKER. Still taking PO invega. Has not been taking PO depakote, so will not order a level. 05/22/21 Continue current regimen, pt is tolerating invega sustenna well. Not taking depakote. Appropriate on the unit. 05/23/21: No changes to above med plan. 05/24/21: No changes to above plan, continue PO invega until invega sustenna reaches steady state. Pt somewhat intrusive with high fiving staff but redirectable. 05/26/21: Continue current plan. Vibra application 05/27/21 Pt has been refusing Depakote at hs with resulting poor sleep. Will give Chlorpromazine IM if Depakote is refused. 05/28/21 Continue current plan Labs 06/01/20. 05/29/21 Continue with current plan 05/30/21 continue with current treatment plan 05/31/21 continue with current treatment plan 06/01/21 Discontinue Depakote-pt prefers Chlorpromazine at HS-50 mg as he reports it is more helpful with sleep quality assistance. 06/03/21: Education, support. Vibra application. 06/04/21: Increase Chlorpromazine to 75 mg HS to assist with mgt of lability. 06/05/21: Continue current regime 06/06 continue current medications 06/09/21: Continue current plan of care Support, Educate, Inform, encourage pt's interests. 06/11/21: More engaged in milieu today. Attentive to ADL's with team encouragement. Continue plan of care. 06/12/21: Continue current regime. Sustenna due 06/21/21. 06/13/21 - 06/14/21 No changes Continue with current treatment plan 06/15/21 Continue current plan of care Invega Sustenna injection due 06/21/21. I spent 45 minutes with the patient and/or on the patient floor today, greater than?50% of which was spent counseling/coordinating care. Patient educated on: therapeutic strategies Informed Consent: does not understand and further education needed Reason for contiued inpatient stay Substantial Risk for: harm to self, harm to others, inability to function and rapid decompensation
[2021-06-15] MEDS: Mineral Oil/Petrolatum,White 106 GM Tube 1 APPL TOPICAL (17:00)
[2021-06-15 19:50] VITALS: BP 123/56; PULSE 98; TEMP 36.7; O2SAT 98
[2021-06-15] MEDS: chlorproMAZINE HCl 25 MG TABLET 75 MG PO (22:04)
--- NOTE | 2021-06-16 06:02 | PC.NURSE ---
Pt. was very agitated at the start of shift. He was requesting a room change. During report it was conveyed that the pt. was not getting along with roommate. A room change could not be accommodated. Pt. was told he could sleep in Group Room A if he would like. Pt. agreed. Around 2350, pt. returned to his room, slammed the bathroom door and began yelling at his roommate who was sleeping. Pt. stormed back down the farrell insisting on a room change. Staff was able to redirect the patient to Group Room A and he was told a room change would have to be discussed during the day. Pt. appears to have slept through the night.
[2021-06-16] MEDS: Paliperidone ER 6 MG TAB.ER.24 PO (08:32)
--- NOTE | 2021-06-16 19:02 | P.PNPSI_ITS ---
Subjective Subjective Date of Service: 06/16/21 Reason For Visit: Schizophrenia Subjective Notes: Section 8 Healthcare Proxy: No Guardianship: No Medical Problems Affecting Mental Status: No Interim History: Labile, depressed with perceptual alterations. Reports telepathic content with girlfriend and the devil. Anger expressed with room-mate for unclear reasons except room-mate had episode of flatulence. Anger also with mother-pt reports she told him she would sell his belongings from his apartment. Pt reports he talked with his landlord and this was confirmed along with being told that mother was in his apartment taking pictures. Frustrated with LOS, and plan for [facility]-wanting respite, wanting to be given a break to travel prior to going to respite. Asking to begin psychotherapy with someone not on staff prior to discharge. Discussed concerns with antonietta and Tanisha LUND. Medication Compliance: Yes Side effects from medications: No Attending Groups: Intermittent Review of Systems Acute medical concerns: No Medical Review of Systems: unchanged Review of Systems Reports memory loss Psychiatric: Reports anxiety, Reports depression, Reports difficulty concentrating, Reports auditory hallucinations, Reports hopelessness, Reports irritability, Reports anhedonia, Reports memory loss, Reports mood swings, Reports paranoia, Reports visual hallucinations and Reports hallucinations Mental Status Exam Mental Status Exam Patient Appearance: Appropriate Patient Orientation: Person, Place, Time and Situation Level of Consciousness: Alert Patient Behavior: Talkative, Anxious, Fearful, Distractible and Good Eye Contact Mood Description: Labile and Sad Affect Description: Labile Patient Cognition Impaired: Yes Ability to Follow Directions: Fair Speech Pattern: Spontaneous Speech and Soft-Spoken Memory Description: Remote Impaired and Episodic Impaired Hallucinations: Auditory Delusions: Paranoid Ideation, Grandiose and Present Perceptual Disturbances: Hallucinations Thought Process: Illogical and Distracted Thought Content: positive for [place], positive for Circumstantial, positive for Perseveration, positive for Preoccupation and positive for Tangential Depressive Symptoms: Increased Anxiety, Increased Irritability, Unhappiness and Difficulty Concentrating Abnormal Motor Activity Signs and Symptoms: Restlessness Judgement: Poor Diagnostics Vital Signs (24Hr): Vital Signs - 24 hr 06/15/21 19:50 Temperature 98.1 F Pulse Rate 98 Blood Pressure 123/56 L Pulse Oximetry 98 BMI result Body Mass Index 28.0 Labs Results: 06/01/21 07:51 06/01/21 07:51 Imaging Radiology Impressions: ITS Impressions Face X-Ray 04/21/21 15:29 IMPRESSION: No fracture seen. Orbit X-Ray 04/21/21 15:29 IMPRESSION: No fracture seen. Cervical Spine CT 04/24/21 22:24 IMPRESSION: No evidence of acute intracranial abnormalities. No evidence of acute maxillofacial fractures. However, evaluation of the inferior mandibular body is limited due to motion and although no definite fractures or surrounding soft tissue thickening/hematoma are identified, clinical correlation for pain/tenderness in the inferior mandible should be obtained as this is suboptimally assessed in this study. No acute cervical fractures or malalignment. Face CT 04/24/21 22:24 IMPRESSION: No evidence of acute intracranial abnormalities. No evidence of acute maxillofacial fractures. However, evaluation of the inferior mandibular body is limited due to motion and although no definite fractures or surrounding soft tissue thickening/hematoma are identified, clinical correlation for pain/tenderness in the inferior mandible should be obtained as this is suboptimally assessed in this study. No acute cervical fractures or malalignment. Head CT 04/24/21 22:24 IMPRESSION: No evidence of acute intracranial abnormalities. No evidence of acute maxillofacial fractures. However, evaluation of the inferior mandibular body is limited due to motion and although no definite fractures or surrounding soft tissue thickening/hematoma are identified, clinical correlation for pain/tenderness in the inferior mandible should be obtained as this is suboptimally assessed in this study. No acute cervical fractures or malalignment. Medications Medications Current Medications Acetaminophen (Acetaminophen 325 Mg Tablet) 650 mg PO Q6H PRN PRN Reason: Headache/Pain Mild Scale (1-3) Last Admin: 05/21/21 21:14 Dose: 650 mg Documented by: Al Hydroxide/Mg Hydroxide (Magnesium Hydrox/Alum Hydrox 30 Ml Oral.Susp) 30 ml PO Q6H PRN PRN Reason: Heartburn/Nausea Last Admin: 05/27/21 00:13 Dose: 30 ml Documented by: Benztropine Mesylate (Benztropine Mesylate 1 Mg Tablet) 1 mg PO TID PRN PRN Reason: Extrapyramidal Effects Chlorpromazine HCl (Chlorpromazine Hcl 100 Mg Tablet) 100 mg PO BID PRN PRN Reason: psychotic agitation Last Admin: 06/03/21 20:44 Dose: 100 mg Documented by: Chlorpromazine HCl (Chlorpromazine Hcl 25 Mg Tablet) 75 mg PO BEDTIME [facility] Last Admin: 06/15/21 22:04 Dose: 75 mg Documented by: Diphenhydramine HCl (Diphenhydramine Hcl 25 Mg Tablet) 50 mg PO Q4H PRN PRN Reason: agitation Last Admin: 05/22/21 00:07 Dose: 50 mg Documented by: Hydroxyzine HCl (Hydroxyzine Hcl 25 Mg Tablet) 25 mg PO QID PRN PRN Reason: Anxiety Last Admin: 05/21/21 21:14 Dose: 25 mg Documented by: Ibuprofen (Ibuprofen 600 Mg Tablet) 600 mg PO Q4H PRN PRN Reason: Pain, Moderate (Pain Scale 4-6 Last Admin: 05/22/21 07:13 Dose: 600 mg Documented by: Magnesium Hydroxide (Milk Of Magnesia 30 Ml Oral.Susp) 30 ml PO DAILY PRN PRN Reason: Constipation Multi-Ingred Cream/Lotion/Oil/Oint (Mineral Oil/Petrolatum,White 106 Gm Tube) 1 appl TOPICAL TID [facility]; Protocol Last Admin: 06/16/21 14:06 Dose: Not Given Documented by: Nicotine (Nicotine 21 Mg Patch.Td24) 21 mg TRANSDERMA DAILY PRN PRN Reason: smoking cessation Nicotine Polacrilex (Nicotine Polacrilex 2 Mg Gum) 4 mg BUCCAL Q2H PRN PRN Reason: Nicotine Cravings Paliperidone (Paliperidone Er 6 Mg Tab.Er.24) 6 mg PO DAILY [facility] Last Admin: 06/16/21 08:32 Dose: 6 mg Documented by: Paliperidone Palmitate (Paliperidone Palmitate 234 Mg/1.5 Ml Syringe) 234 mg IM Q30D [facility] Polyethylene Glycol (Polyethylene Glycol 3350 17 Gm Powd.Pack) 17 gm PO DAILY PRN PRN Reason: CONSTIPATION Senna (Sennosides 8.6 Mg Tablet) 17.2 mg PO BEDTIME [facility] Last Admin: 06/15/21 22:10 Dose: Not Given Documented by: Trazodone HCl (Trazodone Hcl 50 Mg Tablet) 50 mg PO BEDTIME PRN PRN Reason: Insomnia Allergies Allergies Allergy/AdvReac Type Severity Reaction Status Date / Time haloperidol [From HALDOL] Allergy Severe DYSTONIA Verified 04/19/21 06:28 ziprasidone [From GEODON] Allergy Severe DYSTONIA Verified 04/19/21 06:28 Assessment & Plan Assessment & Plan (1) Schizoaffective disorder, bipolar type: Status: Acute Code(s): F25.0 - Schizoaffective disorder, bipolar type Assessment and Plan: Continues with psychosis, aggressive agitation, lability of mood. Requiring re straint. Thorazine 50 mg tid with IM back up as needed Thorazine 100 mg bid prn with IM back up as needed. Initially, pt and I discussed an Abilify Maintena trial to address symptoms. From observation of pt's intensity of psychosis, agitation, lability, this does not appear to be the best agent to meet this level of symptom intensity. Will discuss with pt an Invega trial with transition to Sustenna during his hospitalization with initiation. 05/07/21 Invega 6 mg 05/08. Continue Thorazine prn. (pt required IM back up on 05/07/21) 05/08/21 Continue current plan of care. 05/09/21: Ct w plan per [facility] order 05/10/21: Ct Rx plan 05/11/21: Continue Invega titration. 05/12/21 Pt tolerating Invega. Will begin Sustenna on 05/13. 05/13/21 Sustanna given, tolerated. Support, educate, integrate into milieu for added support. 05/14/21 Tolerating Sustenna. Calmer, more focused today. Asking for help with legal issues, attempting to organize his responsibilities 05/15/21 Continue current plan. 05/16/21 Continue current plan 05/17/21 Continue current plan 05/18/21 Follow up with probation-pt agrees and signed JEANNETTE Second Sustenna injection 05/21. Tolerating with breakthrough sx with PO as well. 05/19/21 Team/Peers report evening/night agitation Depakote 500 mg ER HS 05/20/21 Continue current regime Scheduled Invega injection for 05/21 Continue to attempt alliance building, education, support 05/21/21 Continue current regimen, no changes to medication, will monitor for benefit on invega sustenna COKER. Still taking PO invega. Has not been taking PO depakote, so will not order a level. 05/22/21 Continue current regimen, pt is tolerating invega sustenna well. Not taking depakote. Appropriate on the unit. 05/23/21: No changes to above med plan. 05/24/21: No changes to above plan, continue PO invega until invega sustenna reaches steady state. Pt somewhat intrusive with high fiving staff but redirectable. 05/26/21: Continue current plan. [facility] application 05/27/21 Pt has been refusing Depakote at hs with resulting poor sleep. Will give Chlorpromazine IM if Depakote is refused. 05/28/21 Continue current plan Labs 06/01/20. 05/29/21 Continue with current plan 05/30/21 continue with current treatment plan 05/31/21 continue with current treatment plan 06/01/21 Discontinue Depakote-pt prefers Chlorpromazine at HS-50 mg as he reports it is more helpful with sleep quality assistance. 06/03/21: Education, support. [facility] application. 06/04/21: Increase Chlorpromazine to 75 mg HS to assist with mgt of lability. 06/05/21: Continue current regime 06/06 continue current medications 06/09/21: Continue current plan of care Support, Educate, Inform, encourage pt's interests. 06/11/21: More engaged in milieu today. Attentive to ADL's with team encouragement. Continue plan of care. 06/12/21: Continue current regime. Sustenna due 06/21/21. 06/13/21 - 06/14/21 No changes Continue with current treatment plan 06/15/21 Continue current plan of care Invega Sustenna injection due 06/21/21. 06/16/21 Continue current plan of care. I spent 30 minutes with the patient and/or on the patient floor today, greater than?50% of which was spent counseling/coordinating care. Patient educated on: medication risk/benefits and therapeutic strategies Informed Consent: further education needed Reason for contiued inpatient stay Substantial Risk for: harm to self, harm to others, inability to function and rapid decompensation
[2021-06-16] MEDS: chlorproMAZINE HCl 25 MG TABLET 75 MG PO (19:17)
[2021-06-17] MEDS: Paliperidone ER 6 MG TAB.ER.24 PO (08:45)
--- NOTE | 2021-06-17 18:15 | P.PNPSI_ITS ---
Subjective Subjective Date of Service: 06/17/21 Reason For Visit: Schizophrenia Subjective Notes: Section 8 Healthcare Proxy: No Guardianship: No Medical Problems Affecting Mental Status: No Interim History: Discussed sleep today. Pt reports he finds sleep to be adequate. Team often reports not, with room-mates needing to sleep in other areas. Agreed to trial an increase in chlorpromazine to 100 mg hs. Calmer today in meeting-apologetic for lability of 06/16. Asking about housing applications. Increase acceptance of [facility] plan. Medication Compliance: Yes Side effects from medications: No Attending Groups: Intermittent Review of Systems Acute medical concerns: No Medical Review of Systems: unchanged Review of Systems Reports memory loss Psychiatric: Reports anxiety, Reports depression, Reports difficulty concentrating, Reports auditory hallucinations, Reports hopelessness, Reports irritability, Reports anhedonia, Reports memory loss, Reports mood swings, Reports paranoia, Reports visual hallucinations and Reports hallucinations Mental Status Exam Mental Status Exam Patient Appearance: Appropriate Patient Orientation: Person, Place, Time and Situation Level of Consciousness: Alert Patient Behavior: Talkative, Anxious, Fearful, Distractible and Good Eye Contact Mood Description: Labile and Sad Affect Description: Labile Patient Cognition Impaired: Yes Ability to Follow Directions: Fair Speech Pattern: Spontaneous Speech and Soft-Spoken Memory Description: Remote Impaired and Episodic Impaired Hallucinations: Auditory Delusions: Paranoid Ideation, Grandiose and Present Perceptual Disturbances: Hallucinations Thought Process: Illogical and Distracted Thought Content: positive for [place], positive for Circumstantial, positive for Perseveration, positive for Preoccupation and positive for Tangential Depressive Symptoms: Increased Anxiety, Increased Irritability, Unhappiness and Difficulty Concentrating Abnormal Motor Activity Signs and Symptoms: Restlessness Judgement: Poor Diagnostics Vital Signs (24Hr): BMI result Body Mass Index 28.0 Labs Results: 06/01/21 07:51 06/01/21 07:51 Imaging Radiology Impressions: ITS Impressions Face X-Ray 04/21/21 15:29 IMPRESSION: No fracture seen. Orbit X-Ray 04/21/21 15:29 IMPRESSION: No fracture seen. Cervical Spine CT 04/24/21 22:24 IMPRESSION: No evidence of acute intracranial abnormalities. No evidence of acute maxillofacial fractures. However, evaluation of the inferior mandibular body is limited due to motion and although no definite fractures or surrounding soft tissue thickening/hematoma are identified, clinical correlation for pain/tenderness in the inferior mandible should be obtained as this is suboptimally assessed in this study. No acute cervical fractures or malalignment. Face CT 04/24/21 22:24 IMPRESSION: No evidence of acute intracranial abnormalities. No evidence of acute maxillofacial fractures. However, evaluation of the inferior mandibular body is limited due to motion and although no definite fractures or surrounding soft tissue thickening/hematoma are identified, clinical correlation for pain/tenderness in the inferior mandible should be obtained as this is suboptimally assessed in this study. No acute cervical fractures or malalignment. Head CT 04/24/21 22:24 IMPRESSION: No evidence of acute intracranial abnormalities. No evidence of acute maxillofacial fractures. However, evaluation of the inferior mandibular body is limited due to motion and although no definite fractures or surrounding soft tissue thickening/hematoma are identified, clinical correlation for pain/tenderness in the inferior mandible should be obtained as this is suboptimally assessed in this study. No acute cervical fractures or malalignment. Medications Medications Current Medications Acetaminophen (Acetaminophen 325 Mg Tablet) 650 mg PO Q6H PRN PRN Reason: Headache/Pain Mild Scale (1-3) Last Admin: 05/21/21 21:14 Dose: 650 mg Documented by: Al Hydroxide/Mg Hydroxide (Magnesium Hydrox/Alum Hydrox 30 Ml Oral.Susp) 30 ml PO Q6H PRN PRN Reason: Heartburn/Nausea Last Admin: 05/27/21 00:13 Dose: 30 ml Documented by: Benztropine Mesylate (Benztropine Mesylate 1 Mg Tablet) 1 mg PO TID PRN PRN Reason: Extrapyramidal Effects Chlorpromazine HCl (Chlorpromazine Hcl 100 Mg Tablet) 100 mg PO BID PRN PRN Reason: psychotic agitation Last Admin: 06/03/21 20:44 Dose: 100 mg Documented by: Chlorpromazine HCl (Chlorpromazine Hcl 100 Mg Tablet) 100 mg PO BEDTIME [facility] Diphenhydramine HCl (Diphenhydramine Hcl 25 Mg Tablet) 50 mg PO Q4H PRN PRN Reason: agitation Last Admin: 05/22/21 00:07 Dose: 50 mg Documented by: Hydroxyzine HCl (Hydroxyzine Hcl 25 Mg Tablet) 25 mg PO QID PRN PRN Reason: Anxiety Last Admin: 05/21/21 21:14 Dose: 25 mg Documented by: Ibuprofen (Ibuprofen 600 Mg Tablet) 600 mg PO Q4H PRN PRN Reason: Pain, Moderate (Pain Scale 4-6 Last Admin: 05/22/21 07:13 Dose: 600 mg Documented by: Magnesium Hydroxide (Milk Of Magnesia 30 Ml Oral.Susp) 30 ml PO DAILY PRN PRN Reason: Constipation Multi-Ingred Cream/Lotion/Oil/Oint (Mineral Oil/Petrolatum,White 106 Gm Tube) 1 appl TOPICAL TID [facility]; Protocol Last Admin: 06/17/21 14:17 Dose: Not Given Documented by: Nicotine (Nicotine 21 Mg Patch.Td24) 21 mg TRANSDERMA DAILY PRN PRN Reason: smoking cessation Nicotine Polacrilex (Nicotine Polacrilex 2 Mg Gum) 4 mg BUCCAL Q2H PRN PRN Reason: Nicotine Cravings Paliperidone (Paliperidone Er 6 Mg Tab.Er.24) 6 mg PO DAILY [facility] Last Admin: 06/17/21 08:45 Dose: 6 mg Documented by: Paliperidone Palmitate (Paliperidone Palmitate 234 Mg/1.5 Ml Syringe) 234 mg IM Q30D [facility] Polyethylene Glycol (Polyethylene Glycol 3350 17 Gm Powd.Pack) 17 gm PO DAILY PRN PRN Reason: CONSTIPATION Senna (Sennosides 8.6 Mg Tablet) 17.2 mg PO BEDTIME [facility] Last Admin: 06/16/21 19:19 Dose: Not Given Documented by: Trazodone HCl (Trazodone Hcl 50 Mg Tablet) 50 mg PO BEDTIME PRN PRN Reason: Insomnia Allergies Allergies Allergy/AdvReac Type Severity Reaction Status Date / Time haloperidol [From HALDOL] Allergy Severe DYSTONIA Verified 04/19/21 06:28 ziprasidone [From GEODON] Allergy Severe DYSTONIA Verified 04/19/21 06:28 Assessment & Plan Assessment & Plan (1) Schizoaffective disorder, bipolar type: Status: Acute Code(s): F25.0 - Schizoaffective disorder, bipolar type Assessment and Plan: Continues with psychosis, aggressive agitation, lability of mood. Requiring restraint. Thorazine 50 mg tid with IM back up as needed Thorazine 100 mg bid prn with IM back up as needed. Initially, pt and I discussed an Abilify Maintena trial to address symptoms. From observation of pt's intensity of psychosis, agitation, lability, this does not appear to be the best agent to meet this level of symptom intensity. Will discuss with pt an Invega trial with transition to Sustenna during his hospitalization with initiation. 05/07/21 Invega 6 mg 05/08. Continue Thorazine prn. (pt required IM back up on 05/07/21) 05/08/21 Continue current plan of care. 05/09/21: Ct w plan per [facility] order 05/10/21: Ct Rx plan 05/11/21: Continue Invega titration. 05/12/21 Pt tolerating Invega. Will begin Sustenna on 05/13. 05/13/21 Sustanna given, tolerated. Support, educate, integrate into milieu for added support. 05/14/21 Tolerating Sustenna. Calmer, more focused today. Asking for help with legal issues, attempting to organize his responsibilities 05/15/21 Continue current plan. 05/16/21 Continue current plan 05/17/21 Continue current plan 05/18/21 Follow up with probation-pt agrees and signed JEANNETTE Second Sustenna injection 05/21. Tolerating with breakthrough sx with PO as well. 05/19/21 Team/Peers report evening/night agitation Depakote 500 mg ER HS 05/20/21 Continue current regime Scheduled Invega injection for 05/21 Continue to attempt alliance building, education, support 05/21/21 Continue current regimen, no changes to medication, will monitor for benefit on invega sustenna COKER. Still taking PO invega. Has not been taking PO depakote, so will not order a level. 05/22/21 Continue current regimen, pt is tolerating invega sustenna well. Not taking depakote. Appropriate on the unit. 05/23/21: No changes to above med plan. 05/24/21: No changes to above plan, continue PO invega until invega sustenna reaches steady state. Pt somewhat intrusive with high fiving staff but redirectable. 05/26/21: Continue current plan. [facility] application 05/27/21 Pt has been refusing Depakote at hs with resulting poor sleep. Will give Chlorpromazine IM if Depakote is refused. 05/28/21 Continue current plan Labs 06/01/20. 05/29/21 Continue with current plan 05/30/21 continue with current treatment plan 05/31/21 continue with current treatment plan 06/01/21 Discontinue Depakote-pt prefers Chlorpromazine at HS-50 mg as he reports it is more helpful with sleep quality assistance. 06/03/21: Education, support. [facility] application. 06/04/21: Increase Chlorpromazine to 75 mg HS to assist with mgt of lability. 06/05/21: Continue current regime 06/06 continue current medications 06/09/21: Continue current plan of care Support, Educate, Inform, encourage pt's interests. 06/11/21: More engaged in milieu today. Attentive to ADL's with team e ncouragement. Continue plan of care. 06/12/21: Continue current regime. Sustenna due 06/21/21. 06/13/21 - 06/14/21 No changes Continue with current treatment plan 06/15/21 Continue current plan of care Invega Sustenna injection due 06/21/21. 06/16/21 Continue current plan of care. 06/17/21 Continue current plan of care Increase Chlorpromazine to 100 mg HS Discussed tapering PO Invega most likely between second and third injection of COKER. Discussed with pt treating his mood. At this time he would like more time to assess effects of therapy and COKER. I spent 20 minutes with the patient and/or on the patient floor today, greater than?50% of which was spent counseling/coordinating care. Patient educated on: medication risk/benefits Informed Consent: understands and further education needed Reason for contiued inpatient stay Substantial Risk for: harm to self, harm to others, inability to function and rapid decompensation
[2021-06-17 19:00] VITALS: BP 120/71; PULSE 90; RESP 20; TEMP 36.4; O2SAT 100
[2021-06-17] MEDS: chlorproMAZINE HCl 100 MG TABLET PO (19:23)
[2021-06-18 04:56] VITALS: BP 122/75; PULSE 110; TEMP 36.4; O2SAT 99
[2021-06-18] MEDS: Paliperidone ER 6 MG TAB.ER.24 PO (08:05)
[2021-06-18] MEDS: Mineral Oil/Petrolatum,White 106 GM Tube 1 APPL TOPICAL (10:11)
[2021-06-18 11:22] VITALS: BMI 28.0
--- NOTE | 2021-06-18 14:06 | P.PNPSI_ITS ---
Subjective Subjective Date of Service: 06/18/21 Reason For Visit: Schizophrenia Subjective Notes: Section 8 Healthcare Proxy: No Guardianship: No Medical Problems Affecting Mental Status: No Interim History: Pt asking to meet several times today. Asks for transfer to [facility]-discussed section VIII status and inability to transfer between facilities. Also pt has decided to redirect his mail to a new PO box as he does not want his mother receiving his mail. Asks for a lap top as he reports he broke his switch. Reports sadness today-tearful at times- with concern about his future. I do not want Vibra-I want to be free . Reports tolerating increase in chlorpromazine at HS, not feeling overmedicated and feeling clear in thought process and content, however, reports receipt of telepathic messages from [employer] which he believes want him to go to [facility]. Medication Compliance: Yes Side effects from medications: No Attending Groups: Intermittent Review of Systems Acute medical concerns: No Medical Review of Systems: unchanged Review of Systems Reports memory loss Psychiatric: Reports anxiety, Reports depression, Reports difficulty concentrating, Reports auditory hallucinations, Reports hopelessness, Reports irritability, Reports anhedonia, Reports memory loss, Reports mood swings, Reports paranoia, Reports visual hallucinations and Reports hallucinations Mental Status Exam Mental Status Exam Patient Appearance: Appropriate Patient Orientation: Person, Place, Time and Situation Level of Consciousness: Alert Patient Behavior: Talkative, Anxious, Fearful, Distractible and Good Eye Contact Mood Description: Labile and Sad Affect Description: Labile Patient Cognition Impaired: Yes Ability to Follow Directions: Fair Speech Pattern: Spontaneous Speech and Soft-Spoken Memory Description: Remote Impaired and Episodic Impaired Hallucinations: Auditory Delusions: Paranoid Ideation, Grandiose and Present Perceptual Disturbances: Hallucinations Thought Process: Illogical and Distracted Thought Content: positive for [place], positive for Circumstantial, positive for Perseveration, positive for Preoccupation and positive for Tangential Depressive Symptoms: Increased Anxiety, Increased Irritability, Unhappiness and Difficulty Concentrating Abnormal Motor Activity Signs and Symptoms: Restlessness Judgement: Poor Diagnostics Vital Signs (24Hr): Vital Signs - 24 hr 06/17/21 19:00 06/18/21 04:56 Temperature 97.6 F 97.6 F Pulse Rate 90 110 H Respiratory Rate 20 Blood Pressure 120/71 122/75 Pulse Oximetry 100 99 BMI result Body Mass Index 28.0 Labs Results: 06/01/21 07:51 06/01/21 07:51 Imaging Radiology Impressions: ITS Impressions Face X-Ray 04/21/21 15:29 IMPRESSION: No fracture seen. Orbit X-Ray 04/21/21 15:29 IMPRESSION: No fracture seen. Cervical Spine CT 04/24/21 22:24 IMPRESSION: No evidence of acute intracranial abnormalities. No evidence of acute maxillofacial fractures. However, evaluation of the inferior mandibular body is limited due to motion and although no definite fractures or surrounding soft tissue thickening/hematoma are identified, clinical correlation for pain/tenderness in the inferior mandible should be obtained as this is suboptimally assessed in this study. No acute cervical fractures or malalignment. Face CT 04/24/21 22:24 IMPRESSION: No evidence of acute intracranial abnormalities. No evidence of acute maxillofacial fractures. However, evaluation of the inferior mandibular body is limited due to motion and although no definite fractures or surrounding soft tissue thickening/hematoma are identified, clinical correlation for pain/tenderness in the inferior mandible should be obtained as this is suboptimally assessed in this study. No acute cervical fractures or malalignment. Head CT 04/24/21 22:24 IMPRESSION: No evidence of acute intracranial abnormalities. No evidence of acute maxillofacial fractures. However, evaluation of the inferior mandibular body is limited due to motion and although no definite fractures or surrounding soft tissue thickening/hematoma are identified, clinical correlation for pain/tenderness in the inferior mandible should be obtained as this is suboptimally assessed in this study. No acute cervical fractures or malalignment. Medications Medications Current Medications Acetaminophen (Acetaminophen 325 Mg Tablet) 650 mg PO Q6H PRN PRN Reason: Headache/Pain Mild Scale (1-3) Last Admin: 05/21/21 21:14 Dose: 650 mg Documented by: Al Hydroxide/Mg Hydroxide (Magnesium Hydrox/Alum Hydrox 30 Ml Oral.Susp) 30 ml PO Q6H PRN PRN Reason: Heartburn/Nausea Last Admin: 05/27/21 00:13 Dose: 30 ml Documented by: Benztropine Mesylate (Benztropine Mesylate 1 Mg Tablet) 1 mg PO TID PRN PRN Reason: Extrapyramidal Effects Chlorpromazine HCl (Chlorpromazine Hcl 100 Mg Tablet) 100 mg PO BID PRN PRN Reason: psychotic agitation Last Admin: 06/03/21 20:44 Dose: 100 mg Documented by: Chlorpromazine HCl (Chlorpromazine Hcl 100 Mg Tablet) 100 mg PO BEDTIME PENDING SALE TO [facility] Last Admin: 06/17/21 19:23 Dose: 100 mg Documented by: Diphenhydramine HCl (Diphenhydramine Hcl 25 Mg Tablet) 50 mg PO Q4H PRN PRN Reason: agitation Last Admin: 05/22/21 00:07 Dose: 50 mg Documented by: Hydroxyzine HCl (Hydroxyzine Hcl 25 Mg Tablet) 25 mg PO QID PRN PRN Reason: Anxiety Last Admin: 05/21/21 21:14 Dose: 25 mg Documented by: Ibuprofen (Ibuprofen 600 Mg Tablet) 600 mg PO Q4H PRN PRN Reason: Pain, Moderate (Pain Scale 4-6 Last Admin: 05/22/21 07:13 Dose: 600 mg Documented by: Magnesium Hydroxide (Milk Of Magnesia 30 Ml Oral.Susp) 30 ml PO DAILY PRN PRN Reason: Constipation Multi-Ingred Cream/Lotion/Oil/Oint (Mineral Oil/Petrolatum,White 106 Gm Tube) 1 appl TOPICAL TID PENDING SALE TO [facility]; Protocol Last Admin: 06/18/21 13:34 Dose: Not Given Documented by: Nicotine (Nicotine 21 Mg Patch.Td24) 21 mg TRANSDERMA DAILY PRN PRN Reason: smoking cessation Nicotine Polacrilex (Nicotine Polacrilex 2 Mg Gum) 4 mg BUCCAL Q2H PRN PRN Reason: Nicotine Cravings Paliperidone (Paliperidone Er 6 Mg Tab.Er.24) 6 mg PO DAILY PENDING SALE TO [facility] Last Admin: 06/18/21 08:05 Dose: 6 mg Documented by: Paliperidone Palmitate (Paliperidone Palmitate 234 Mg/1.5 Ml Syringe) 234 mg IM Q30D PENDING SALE TO [facility] Polyethylene Glycol (Polyethylene Glycol 3350 17 Gm Powd.Pack) 17 gm PO DAILY PRN PRN Reason: CONSTIPATION Senna (Sennosides 8.6 Mg Tablet) 17.2 mg PO BEDTIME PENDING SALE TO [facility] Last Admin: 06/17/21 20:16 Dose: Not Given Documented by: Trazodone HCl (Trazodone Hcl 50 Mg Tablet) 50 mg PO BEDTIME PRN PRN Reason: Insomnia Allergies Allergies Allergy/AdvReac Type Severity Reaction Status Date / Time haloperidol [From HALDOL] Allergy Severe DYSTONIA Verified 04/19/21 06:28 ziprasidone [From GEODON] Allergy Severe DYSTONIA Verified 04/19/21 06:28 Assessment & Plan Assessment & Plan (1) Schizoaffective disorder, bipolar type: Status: Acute Code(s): F25.0 - Schizoaffective disorder, bipolar type Assessment and Plan: Continues with psychosis, aggressive agitation, lability of mood. Requiring re straint. Thorazine 50 mg tid with IM back up as needed Thorazine 100 mg bid prn with IM back up as needed. Initially, pt and I discussed an Abilify Maintena trial to address symptoms. From observation of pt's intensity of psychosis, agitation, lability, this does not appear to be the best agent to meet this level of symptom intensity. Will discuss with pt an Invega trial with transition to Sustenna during his hospitalization with initiation. 05/07/21 Invega 6 mg 05/08. Continue Thorazine prn. (pt required IM back up on 05/07/21) 05/08/21 Continue current plan of care. 05/09/21: Ct w plan per [facility] order 05/10/21: Ct Rx plan 05/11/21: Continue Invega titration. 05/12/21 Pt tolerating Invega. Will begin Sustenna on 05/13. 05/13/21 Sustanna given, tolerated. Support, educate, integrate into milieu for added support. 05/14/21 Tolerating Sustenna. Calmer, more focused today. Asking for help with legal issues, attempting to organize his responsibilities 05/15/21 Continue current plan. 05/16/21 Continue current plan 05/17/21 Continue current plan 05/18/21 Follow up with probation-pt agrees and signed JEANNETTE Second Sustenna injection 05/21. Tolerating with breakthrough sx with PO as well. 05/19/21 Team/Peers report evening/night agitation Depakote 500 mg ER HS 05/20/21 Continue current regime Scheduled Invega injection for 05/21 Continue to attempt alliance building, education, support 05/21/21 Continue current regimen, no changes to medication, will monitor for benefit on invega sustenna COKER. Still taking PO invega. Has not been taking PO depakote, so will not order a level. 05/22/21 Continue current regimen, pt is tolerating invega sustenna well. Not taking depakote. Appropriate on the unit. 05/23/21: No changes to above med plan. 05/24/21: No changes to above plan, continue PO invega until invega sustenna reaches steady state. Pt somewhat intrusive with high fiving staff but redirectable. 05/26/21: Continue current plan. Vibra application 05/27/21 Pt has been refusing Depakote at hs with resulting poor sleep. Will give Chlorpromazine IM if Depakote is refused. 05/28/21 Continue current plan Labs 06/01/20. 05/29/21 Continue with current plan 05/30/21 continue with current treatment plan 05/31/21 continue with current treatment plan 06/01/21 Discontinue Depakote-pt prefers Chlorpromazine at HS-50 mg as he reports it is more helpful with sleep quality assistance. 06/03/21: Education, support. Vibra application. 06/04/21: Increase Chlorpromazine to 75 mg HS to assist with mgt of lability. 06/05/21: Continue current regime 06/06 continue current medications 06/09/21: Continue current plan of care Support, Educate, Inform, encourage pt's interests. 06/11/21: More engaged in milieu today. Attentive to ADL's with team encouragement. Continue plan of care. 06/12/21: Continue current regime. Sustenna due 06/21/21. 06/13/21 - 06/14/21 No changes Continue with current treatment plan 06/15/21 Continue current plan of care Invega Sustenna injection due 06/21/21. 06/16/21 Continue current plan of care. 06/17/21 Continue current plan of care Increase Chlorpromazine to 100 mg HS Discussed tapering PO Invega most likely between second and third injection of COKER. Discussed with pt treating his mood. At this time he would like more time to assess effects of therapy and COKER. 06/18/21 Continue current plan. Offer support and structure I spent 35 minutes with the patient and/or on the patient floor today, greater than?50% of which was spent counseling/coordinating care. Patient educated on: medication risk/benefits and therapeutic strategies Informed Consent: further education needed Reason for contiued inpatient stay Substantial Risk for: harm to self, harm to others, inability to function and rapid decompensation
[2021-06-18 17:25] VITALS: BP 118/75; PULSE 97; RESP 20; TEMP 37.2; O2SAT 97
[2021-06-18] MEDS: chlorproMAZINE HCl 100 MG TABLET PO (21:20)
[2021-06-19] MEDS: Paliperidone ER 6 MG TAB.ER.24 PO (09:23)
--- NOTE | 2021-06-19 15:04 | P.PNPSI_ITS ---
Subjective Subjective Date of Service: 06/19/21 Reason For Visit: Schizophrenia Interim History: Visable in milieu, engaged with others, attending groups, eager to meet and discuss concerns about upcoming court date, placement, activities and interests. Calmer today, reflects upon a difficult week but moving forward he states. Asks that we make arrangements with [facility] for transfer. Discussed with pt- [facility] tells me you can do an inter facility transfer and I want it done-my girlfriend is there. Medication Compliance: Yes Side effects from medications: No Attending Groups: Yes Review of Systems Acute medical concerns: No Medical Review of Systems: unchanged Review of Systems Reports memory loss Psychiatric: Reports anxiety, Reports depression, Reports difficulty concentrating, Reports auditory hallucinations, Reports hopelessness, Reports irritability, Reports anhedonia, Reports memory loss, Reports mood swings, Reports paranoia, Reports visual hallucinations and Reports hallucinations Mental Status Exam Mental Status Exam Patient Appearance: Appropriate Patient Orientation: Person, Place, Time and Situation Level of Consciousness: Alert Patient Behavior: Talkative, Anxious, Fearful, Distractible and Good Eye Contact Mood Description: Labile and Sad Affect Description: Labile Patient Cognition Impaired: Yes Ability to Follow Directions: Fair Speech Pattern: Spontaneous Speech and Soft-Spoken Memory Description: Remote Impaired and Episodic Impaired Hallucinations: Auditory Delusions: Paranoid Ideation, Grandiose and Present Perceptual Disturbances: Hallucinations Thought Process: Illogical and Distracted Thought Content: positive for [place], positive for Circumstantial, positive for Perseveration, positive for Preoccupation and positive for Tangential Depressive Symptoms: Increased Anxiety, Increased Irritability, Unhappiness and Difficulty Concentrating Abnormal Motor Activity Signs and Symptoms: Restlessness Judgement: Poor Diagnostics Vital Signs (24Hr): Vital Signs - 24 hr 06/18/21 17:25 Temperature 98.9 F Pulse Rate 97 Respiratory Rate 20 Blood Pressure 118/75 Pulse Oximetry 97 BMI result Body Mass Index 28.0 Labs Results: 06/01/21 07:51 06/01/21 07:51 Imaging Radiology Impressions: ITS Impressions Face X-Ray 04/21/21 15:29 IMPRESSION: No fracture seen. Orbit X-Ray 04/21/21 15:29 IMPRESSION: No fracture seen. Cervical Spine CT 04/24/21 22:24 IMPRESSION: No evidence of acute intracranial abnormalities. No evidence of acute maxillofacial fractures. However, evaluation of the inferior mandibular body is limited due to motion and although no definite fractures or surrounding soft tissue thickening/hematoma are identified, clinical correlation for pain/tenderness in the inferior mandible should be obtained as this is suboptimally assessed in this study. No acute cervical fractures or malalignment. Face CT 04/24/21 22:24 IMPRESSION: No evidence of acute intracranial abnormalities. No evidence of acute maxillofacial fractures. However, evaluation of the inferior mandibular body is limited due to motion and although no definite fractures or surrounding soft tissue thickening/hematoma are identified, clinical correlation for pain/tenderness in the inferior mandible should be obtained as this is suboptimally assessed in this study. No acute cervical fractures or malalignment. Head CT 04/24/21 22:24 IMPRESSION: No evidence of acute intracranial abnormalities. No evidence of acute maxillofacial fractures. However, evaluation of the inferior mandibular body is limited due to motion and although no definite fractures or surrounding soft tissue thickening/hematoma are identified, clinical correlation for pain/tenderness in the inferior mandible should be obtained as this is suboptimally assessed in this study. No acute cervical fractures or malalignment. Medications Medications Current Medications Acetaminophen (Acetaminophen 325 Mg Tablet) 650 mg PO Q6H PRN PRN Reason: Headache/Pain Mild Scale (1-3) Last Admin: 05/21/21 21:14 Dose: 650 mg Documented by: Al Hydroxide/Mg Hydroxide (Magnesium Hydrox/Alum Hydrox 30 Ml Oral.Susp) 30 ml PO Q6H PRN PRN Reason: Heartburn/Nausea Last Admin: 05/27/21 00:13 Dose: 30 ml Documented by: Benztropine Mesylate (Benztropine Mesylate 1 Mg Tablet) 1 mg PO TID PRN PRN Reason: Extrapyramidal Effects Chlorpromazine HCl (Chlorpromazine Hcl 100 Mg Tablet) 100 mg PO BID PRN PRN Reason: psychotic agitation Last Admin: 06/03/21 20:44 Dose: 100 mg Documented by: Chlorpromazine HCl (Chlorpromazine Hcl 100 Mg Tablet) 100 mg PO BEDTIME MARGAUX Last Admin: 06/18/21 21:20 Dose: 100 mg Documented by: Diphenhydramine HCl (Diphenhydramine Hcl 25 Mg Tablet) 50 mg PO Q4H PRN PRN Reason: agitation Last Admin: 05/22/21 00:07 Dose: 50 mg Documented by: Hydroxyzine HCl (Hydroxyzine Hcl 25 Mg Tablet) 25 mg PO QID PRN PRN Reason: Anxiety Last Admin: 05/21/21 21:14 Dose: 25 mg Documented by: Ibuprofen (Ibuprofen 600 Mg Tablet) 600 mg PO Q4H PRN PRN Reason: Pain, Moderate (Pain Scale 4-6 Last Admin: 05/22/21 07:13 Dose: 600 mg Documented by: Lidocaine (Lidocaine 4 % Patch Adh..Patch) 1 patch TRANSDERMA DAILY PRN; P rotocol PRN Reason: cervical pain Magnesium Hydroxide (Milk Of Magnesia 30 Ml Oral.Susp) 30 ml PO DAILY PRN PRN Reason: Constipation Nicotine (Nicotine 21 Mg Patch.Td24) 21 mg TRANSDERMA DAILY PRN PRN Reason: smoking cessation Nicotine Polacrilex (Nicotine Polacrilex 2 Mg Gum) 4 mg BUCCAL Q2H PRN PRN Reason: Nicotine Cravings Paliperidone (Paliperidone Er 6 Mg Tab.Er.24) 6 mg PO DAILY MARGAUX Last Admin: 06/19/21 09:23 Dose: 6 mg Documented by: Paliperidone Palmitate (Paliperidone Palmitate 234 Mg/1.5 Ml Syringe) 234 mg IM Q30D MARGAUX Trazodone HCl (Trazodone Hcl 50 Mg Tablet) 50 mg PO BEDTIME PRN PRN Reason: Insomnia Allergies Allergies Allergy/AdvReac Type Severity Reaction Status Date / Time haloperidol [From HALDOL] Allergy Severe DYSTONIA Verified 04/19/21 06:28 ziprasidone [From GEODON] Allergy Severe DYSTONIA Verified 04/19/21 06:28 Assessment & Plan Assessment & Plan (1) Schizoaffective disorder, bipolar type: Status: Acute Code(s): F25.0 - Schizoaffective disorder, bipolar type Assessment and Plan: Continues with psychosis, aggressive agitation, lability of mood. Requiring restraint. Thorazine 50 mg tid with IM back up as needed Thorazine 100 mg bid prn with IM back up as needed. Initially, pt and I discussed an Abilify Maintena trial to address symptoms. From observation of pt's intensity of psychosis, agitation, lability, this does not appear to be the best agent to meet this level of symptom intensity. Will discuss with pt an Invega trial with transition to Sustenna during his hospitalization with initiation. 05/07/21 Invega 6 mg 12/10. Continue Thorazine prn. (pt required IM back up on 05/07/21) 05/08/21 Continue current plan of care. 05/09/21: Ct w plan per [facility] order 05/10/21: Ct Rx plan 05/11/21: Continue Invega titration. 05/12/21 Pt tolerating Invega. Will begin Sustenna on 05/13. 05/13/21 Sustanna given, tolerated. Support, educate, integrate into milieu for added support. 05/14/21 Tolerating Sustenna. Calmer, more focused today. Asking for help with legal issues, attempting to organize his responsibilities 05/15/21 Continue current plan. 05/16/21 Continue current plan 05/17/21 Continue current plan 05/18/21 Follow up with probation-pt agrees and signed JEANNETTE Second Sustenna injection 05/21. Tolerating with breakthrough sx with PO as well. 05/19/21 Team/Peers report evening/night agitation Depakote 500 mg ER HS 05/20/21 Continue current regime Scheduled Invega injection for 05/21 Continue to attempt alliance building, education, support 05/21/21 Continue current regimen, no changes to medication, will monitor for benefit on invega sustenna COKER. Still taking PO invega. Has not been taking PO depakote, so will not order a level. 05/22/21 Continue current regimen, pt is tolerating invega sustenna well. Not taking depakote. Appropriate on the unit. 05/23/21: No changes to above med plan. 05/24/21: No changes to above plan, continue PO invega until invega sustenna reaches steady state. Pt somewhat intrusive with high fiving staff but redirectable. 05/26/21: Continue current plan. Vibra application 05/27/21 Pt has been refusing Depakote at hs with resulting poor sleep. Will give Chlorpromazine IM if Depakote is refused. 05/28/21 Continue current plan Labs 06/01/20. 05/29/21 Continue with current plan 05/30/21 continue with current treatment plan 05/31/21 continue with current treatment plan 06/01/21 Discontinue Depakote-pt prefers Chlorpromazine at HS-50 mg as he reports it is more helpful with sleep quality assistance. 06/03/21: Education, support. Vibra application. 06/04/21: Increase Chlorpromazine to 75 mg HS to assist with mgt of lability. 06/05/21: Continue current regime 06/06 continue current medications 06/09/21: Continue current plan of care Support, Educate, Inform, encourage pt's interests. 06/11/21: More engaged in milieu today. Attentive to ADL's with team encouragement. Continue plan of care. 06/12/21: Continue current regime. Sustenna due 06/21/21. 06/13/21 - 06/14/21 No changes Continue with current treatment plan 06/15/21 Continue current plan of care Invega Sustenna injection due 06/21/21. 06/16/21 Continue current plan of care. 06/17/21 Continue current plan of care Increase Chlorpromazine to 100 mg HS Discussed tapering PO Invega most likely between second and third injection of COKER. Discussed with pt treating his mood. At this time he would like more time to assess effects of therapy and COKER. 06/18/21 Continue current plan. Offer support and structure 06/19/10 Sustenna Injection 06/21. I spent 45 minutes with the patient and/or on the patient floor today, greater than?50% of which was spent counseling/coordinating care. Patient educated on: diagnosis, medication risk/benefits, therapeutic strategies and medical condition Informed Consent: does not understand and further education needed Reason for contiued inpatient stay Substantial Risk for: harm to self, harm to others, inability to function and rapid decompensation
[2021-06-19] MEDS: chlorproMAZINE HCl 100 MG TABLET PO (20:11)
[2021-06-20] MEDS: Lidocaine 4 % Patch ADH..PATCH 1 PATCH TRANSDERMA (07:24)
[2021-06-20] MEDS: Paliperidone ER 6 MG TAB.ER.24 PO (08:28)
--- NOTE | 2021-06-20 12:25 | P.PNPSI_ITS ---
Subjective Subjective Date of Service: 06/20/21 Reason For Visit: Schizophrenia Subjective Notes: Section 8 Interim History: Asif is visible on the unit and is mildly intrusive. There has been no behavioral dyscontrol. Medication Compliance: Yes Review of Systems Review of Systems no changes Yes all other systems are reviewed and are negative Constitutional: Reports no additional constitutional complaints Musculoskeletal: Reports other (denies, s/p punching a wall with abrasions sustatined) Reports behavioral changes, Reports confusion and Reports memory loss Psychiatric: Reports abnormal sleep pattern, Reports anxiety, Reports behavioral changes, Reports confusion, Reports depression, Reports difficulty concentrating, Reports auditory hallucinations, Reports hopelessness, Reports irritability, Reports anhedonia, Reports memory loss, Reports mood swings, Reports paranoia, Reports visual hallucinations, Reports hallucinations, Reports homicidal ideation, Reports suicidal ideation (denies) and Reports other (aggression, agitation, violence precipitating restraint) Mental Status Exam Mental Status Exam Narrative: Patient Appearance:?Appropriate Patient Orientation:?Person, Place, Time and Situation Level of Consciousness:?Alert Patient Behavior:?Talkative and Good Eye Contact, friendly Mood Description:? good Affect Description:?congruent Patient Cognition Impaired:?No Ability to Follow Directions:?Good Speech Pattern:?Spontaneous Speech Memory Description:?Episodic Impaired Hallucinations:?Auditory and Visual Delusions:?Paranoid Ideation Perceptual Disturbances:?Depersonalization and Derealization Thought Process:?Distracted and Rumination Thought Content:?positive for [place], positive for Circumstantial, positive for Goal Oriented, positive for Perseveration, positive for Preoccupation, positive for Loose Associations and positive for Tangential Depressive Symptoms:?Increased Anxiety and Low Self Esteem Abnormal Motor Activity Signs and Symptoms:?Restlessness Judgement:?Poor Patient Appearance: Appropriate Patient Orientation: Person, Place, Time and Situation Level of Consciousness: Alert Patient Behavior: Talkative, Anxious, Fearful, Distractible and Good Eye Contact Mood Description: Labile and Sad Affect Description: Labile Patient Cognition Impaired: Yes Ability to Follow Directions: Fair Speech Pattern: Spontaneous Speech and Soft-Spoken Memory Description: Remote Impaired and Episodic Impaired Diagnostics Vital Signs (24Hr): BMI result Body Mass Index 28.0 Labs Results: 06/01/21 07:51 06/01/21 07:51 Imaging Radiology Impressions: ITS Impressions Face X-Ray 04/21/21 15:29 IMPRESSION: No fracture seen. Orbit X-Ray 04/21/21 15:29 IMPRESSION: No fracture seen. Cervical Spine CT 04/24/21 22:24 IMPRESSION: No evidence of acute intracranial abnormalities. No evidence of acute maxillofacial fractures. However, evaluation of the inferior mandibular body is limited due to motion and although no definite fractures or surrounding soft tissue thickening/hematoma are identified, clinical correlation for pain/tenderness in the inferior mandible should be obtained as this is suboptimally assessed in this study. No acute cervical fractures or malalignment. Face CT 04/24/21 22:24 IMPRESSION: No evidence of acute intracranial abnormalities. No evidence of acute maxillofacial fractures. However, evaluation of the inferior mandibular body is limited due to motion and although no definite fractures or surrounding soft tissue thickening/hematoma are identified, clinical correlation for pain/tenderness in the inferior mandible should be obtained as this is suboptimally assessed in this study. No acute cervical fractures or malalignment. Head CT 04/24/21 22:24 IMPRESSION: No evidence of acute intracranial abnormalities. No evidence of acute maxillofacial fractures. However, evaluation of the inferior mandibular body is limited due to motion and although no definite fractures or surrounding soft tissue thickening/hematoma are identified, clinical correlation for pain/tenderness in the inferior mandible should be obtained as this is suboptimally assessed in this study. No acute cervical fractures or malalignment. Medications Medications Current Medications Acetaminophen (Acetaminophen 325 Mg Tablet) 650 mg PO Q6H PRN PRN Reason: Headache/Pain Mild Scale (1-3) Last Admin: 05/21/21 21:14 Dose: 650 mg Documented by: Al Hydroxide/Mg Hydroxide (Magnesium Hydrox/Alum Hydrox 30 Ml Oral.Susp) 30 ml PO Q6H PRN PRN Reason: Heartburn/Nausea Last Admin: 05/27/21 00:13 Dose: 30 ml Documented by: Benztropine Mesylate (Benztropine Mesylate 1 Mg Tablet) 1 mg PO TID PRN PRN Reason: Extrapyramidal Effects Chlorpromazine HCl (Chlorpromazine Hcl 100 Mg Tablet) 100 mg PO BID PRN PRN Reason: psychotic agitation Last Admin: 06/03/21 20:44 Dose: 100 mg Documented by: Chlorpromazine HCl (Chlorpromazine Hcl 100 Mg Tablet) 100 mg PO BEDTIME [facility] Last Admin: 06/19/21 20:11 Dose: 100 mg Documented by: Diphenhydramine HCl (Diphenhydramine Hcl 25 Mg Tablet) 50 mg PO Q4H PRN PRN Reason: agitation Last Admin: 05/22/21 00:07 Dose: 50 mg Documented by: Hydroxyzine HCl (Hydroxyzine Hcl 25 Mg Tablet) 25 mg PO QID PRN PRN Reason: Anxiety Last Admin: 05/21/21 21:14 Dose: 25 mg Documented by: Ibuprofen (Ibuprofen 600 Mg Tablet) 600 mg PO Q4H PRN PRN Reason: Pain, Moderate (Pain Scale 4-6 Last Admin: 05/22/21 07:13 Dose: 600 mg Documented by: Lidocaine (Lidocaine 4 % Patch Adh..Patch) 1 patch TRANSDERMA DAILY PRN; Protocol PRN Reason: cervical pain Last Admin: 06/20/21 07:24 Dose: 1 patch Documented by: Magnesium Hydroxide (Milk Of Magnesia 30 Ml Oral.Susp) 30 ml PO DAILY PRN PRN Reason: Constipation Nicotine (Nicotine 21 Mg Patch.Td24) 21 mg TRANSDERMA DAILY PRN PRN Reason: smoking cessation Nicotine Polacrilex (Nicotine Polacrilex 2 Mg Gum) 4 mg BUCCAL Q2H PRN PRN Reason: Nicotine Cravings Paliperidone (Paliperidone Er 6 Mg Tab.Er.24) 6 mg PO DAILY [facility] Last Admin: 06/20/21 08:28 Dose: 6 mg Documented by: Paliperidone Palmitate (Paliperidone Palmitate 234 Mg/1.5 Ml Syringe) 234 mg IM Q30D [facility] Trazodone HCl (Trazodone Hcl 50 Mg Tablet) 50 mg PO BEDTIME PRN PRN Reason: Insomnia Allergies Allergies Allergy/AdvReac Type Severity Reaction Status Date / Time haloperidol [From HALDOL] Allergy Severe DYSTONIA Verified 04/19/21 06:28 ziprasidone [From GEODON] Allergy Severe DYSTONIA Verified 04/19/21 06:28 Assessment & Plan Assessment & Plan (1) Schizoaffective disorder, bipolar type: Status: Acute Code(s): F25.0 - Schizoaffective disorder, bipolar type Assessment and Plan: Continues with psychosis, aggressive agitation, lability of mood. Requiring restraint. Thorazine 50 mg tid with IM back up as needed Thorazine 100 mg bid prn with IM back up as needed. Initially, pt and I discussed an Suman Purvis trial to address symptoms. From observation of pt's intensity of psychosis, agitation, lability, this does not appear to be the best agent to meet this level of symptom intensity. Will discuss with pt an Invega trial with transition to Sustenna during his hospitalization with initiation. 05/07/21 Invega 6 mg 05/08. Continue Thorazine prn. (pt required IM back up on 05/07/21) 05/08/21 Continue current plan of care. 05/09/21: Ct w plan per [facility] order 05/10/21: Ct Rx plan 05/11/21: Continue Invega titration. 05/12/21 Pt tolerating Invega. Will begin Sustenna on 05/13. 05/13/21 Sustanna given, tolerated. Support, educate, integrate into milieu for added support. 05/14/21 Tolerating Sustenna. Calmer, more focused today. Asking for help with legal issues, attempting to organize his responsibilities 05/15/21 Continue current plan. 05/16/21 Continue current plan 05/17/21 Continue current plan 05/18/21 Follow up with probation-pt agrees and signed JEANNETTE Second Sustenna injection 05/21. Tolerating with breakthrough sx with PO as well. 05/19/21 Team/Peers report evening/night agitation Depakote 500 mg ER HS 05/20/21 Continue current regime Scheduled Invega injection for 05/21 Continue to attempt alliance building, education, support 05/21/21 Continue current regimen, no changes to medication, will monitor for benefit on invega sustenna COKER. Still taking PO invega. Has not been taking PO depakote, so will not order a level. 05/22/21 Continue current regimen, pt is tolerating invega sustenna well. Not taking depakote. Appropriate on the unit. 05/23/21: No changes to above med plan. 05/24/21: No changes to above plan, continue PO invega until invega sustenna reaches steady state. Pt somewhat intrusive with high fiving staff but redirectable. 05/26/21: Continue current plan. [facility] application 05/27/21 Pt has been refusing Depakote at hs with resulting poor sleep. Will give Chlorpromazine IM if Depakote is refused. 05/28/21 Continue current plan Labs 06/01/20. 05/29/21 Continue with current plan 05/30/21 continue with current treatment plan 05/31/21 continue with current treatment plan 06/01/21 Discontinue Depakote-pt prefers Chlorpromazine at HS-50 mg as he reports it is more helpful with sleep quality assistance. 06/03/21: Education, support. [facility] application. 06/04/21: Increase Chlorpromazine to 75 mg HS to assist with mgt of lability. 06/05/21: Continue current regime 06/06 continue current medications 06/09/21: Continue current plan of care Support, Educate, Inform, encourage pt's interests. 06/11/21: More engaged in milieu today. Attentive to ADL's with team encouragement. Continue plan of care. 06/12/21: Continue current regime. Sustenna due 06/21/21. 06/13/21 - 06/14/21 No changes Continue with current treatment plan 06/15/21 Continue current plan of care Invega Sustenna injection due 06/21/21. 06/16/21 Continue current plan of care. 06/17/21 Continue current plan of care Increase Chlorpromazine to 100 mg HS Discussed tapering PO Invega most likely between second and third injection of COKER. Discussed with pt treating his mood. At this time he would like more time to assess effects of therapy and COKER. 06/18/21 Continue current plan. Offer support and structure 06/19/10 Sustenna Injection 06/21. 06/20/21 No changes to the above I spent minutes with the patient and/or on the patient floor today, theodora ter than?50% of which was spent counseling/coordinating care. Patient educated on: diagnosis Informed Consent: does not understand Reason for contiued inpatient stay Substantial Risk for: rapid decompensation
[2021-06-20 12:41] VITALS: BP 125/79; PULSE 98; RESP 18; TEMP 36.7; O2SAT 98
[2021-06-20 18:00] VITALS: RESP 16
[2021-06-20] MEDS: chlorproMAZINE HCl 100 MG TABLET PO (21:53)
[2021-06-21] MEDS: Paliperidone ER 6 MG TAB.ER.24 PO (08:58)
[2021-06-21 11:11] VITALS: BP 128/63; PULSE 96; RESP 18; TEMP 36.4; O2SAT 100
[2021-06-21] MEDS: Paliperidone Palmitate 234 MG/1.5 ML SYRINGE IM (12:06)
[2021-06-21 18:28] VITALS: BP 127/67; PULSE 85
--- NOTE | 2021-06-21 18:32 | P.PNPSI_ITS ---
Subjective Subjective Date of Service: 06/21/21 Reason For Visit: Schizophrenia Subjective Notes: Section 8 Interim History: Asif is visible on the unit and is mildly intrusive. There has been no behavioral dyscontrol. He insists that he would rather go to a [facility]pite than [facility] and he was re- directed to his [facility] team. Review of Systems Review of Systems no changes Yes all other systems are reviewed and are negative Constitutional: Reports no additional constitutional complaints Musculoskeletal: Reports other (denies, s/p punching a wall with abrasions sustatined) Reports behavioral changes, Reports confusion and Reports memory loss Psychiatric: Reports abnormal sleep pattern, Reports anxiety, Reports behavioral changes, Reports confusion, Reports depression, Reports difficulty concentratin g, Reports auditory hallucinations, Reports hopelessness, Reports irritability, Reports anhedonia, Reports memory loss, Reports mood swings, Reports paranoia, Reports visual hallucinations, Reports hallucinations, Reports homicidal ideation, Reports suicidal ideation (denies) and Reports other (aggression, agitation, violence precipitating restraint) Mental Status Exam Mental Status Exam Narrative: Patient Appearance:?Appropriate Patient Orientation:?Person, Place, Time and Situation Level of Consciousness:?Alert Patient Behavior:?Talkative and Good Eye Contact, friendly Mood Description:? good Affect Description:?congruent Patient Cognition Impaired:?No Ability to Follow Directions:?Good Speech Pattern:?Spontaneous Speech Memory Description:?Episodic Impaired Hallucinations:?Auditory and Visual Delusions:?Paranoid Ideation Perceptual Disturbances:?Depersonalization and Derealization Thought Process:?Distracted and Rumination Thought Content:?positive for [place], positive for Circumstantial, positive for Goal Oriented, positive for Perseveration, positive for Preoccupation, positive for Loose Associations and positive for Tangential Depressive Symptoms:?Increased Anxiety and Low Self Esteem Abnormal Motor Activity Signs and Symptoms:?Restlessness Judgement:?Poor Patient Appearance: Appropriate Patient Orientation: Person, Place, Time and Situation Level of Consciousness: Alert Patient Behavior: Talkative, Anxious, Fearful, Distractible and Good Eye Contact Mood Description: Labile and Sad Affect Description: Labile Patient Cognition Impaired: Yes Ability to Follow Directions: Fair Speech Pattern: Spontaneous Speech and Soft-Spoken Memory Description: Remote Impaired and Episodic Impaired Diagnostics Vital Signs (24Hr): Vital Signs - 24 hr 06/21/21 11:11 06/21/21 18:28 Temperature 97.6 F Pulse Rate 96 85 Respiratory Rate 18 Blood Pressure 128/63 127/67 Pulse Oximetry 100 BMI result Body Mass Index 28.0 Labs Results: 06/01/21 07:51 06/01/21 07:51 Imaging Radiology Impressions: ITS Impressions Face X-Ray 04/21/21 15:29 IMPRESSION: No fracture seen. Orbit X-Ray 04/21/21 15:29 IMPRESSION: No fracture seen. Cervical Spine CT 04/24/21 22:24 IMPRESSION: No evidence of acute intracranial abnormalities. No evidence of acute maxillofacial fractures. However, evaluation of the inferior mandibular body is limited due to motion and although no definite fractures or surrounding soft tissue thickening/hematoma are identified, clinical correlation for pain/tenderness in the inferior mandible should be obtained as this is suboptimally assessed in this study. No acute cervical fractures or malalignment. Face CT 04/24/21 22:24 IMPRESSION: No evidence of acute intracranial abnormalities. No evidence of acute maxillofacial fractures. However, evaluation of the inferior mandibular body is limited due to motion and although no definite fractures or surrounding soft tissue thickening/hematoma are identified, clinical correlation for pain/tenderness in the inferior mandible should be obtained as this is suboptimally assessed in this study. No acute cervical fractures or malalignment. Head CT 04/24/21 22:24 IMPRESSION: No evidence of acute intracranial abnormalities. No evidence of acute maxillofacial fractures. However, evaluation of the inferior mandibular body is limited due to motion and although no definite fractures or surrounding soft tissue thickening/hematoma are identified, clinical correlation for pain/tenderness in the inferior mandible should be obtained as this is suboptimally assessed in this study. No acute cervical fractures or malalignment. Medications Medications Current Medications Acetaminophen (Acetaminophen 325 Mg Tablet) 650 mg PO Q6H PRN PRN Reason: Headache/Pain Mild Scale (1-3) Last Admin: 05/21/21 21:14 Dose: 650 mg Documented by: Al Hydroxide/Mg Hydroxide (Magnesium Hydrox/Alum Hydrox 30 Ml Oral.Susp) 30 ml PO Q6H PRN PRN Reason: Heartburn/Nausea Last Admin: 05/27/21 00:13 Dose: 30 ml Documented by: Benztropine Mesylate (Benztropine Mesylate 1 Mg Tablet) 1 mg PO TID PRN PRN Reason: Extrapyramidal Effects Chlorpromazine HCl (Chlorpromazine Hcl 100 Mg Tablet) 100 mg PO BID PRN PRN Reason: psychotic agitation Last Admin: 06/03/21 20:44 Dose: 100 mg Documented by: Chlorpromazine HCl (Chlorpromazine Hcl 100 Mg Tablet) 100 mg PO BEDTIME [facility] Last Admin: 06/20/21 21:53 Dose: 100 mg Documented by: Diphenhydramine HCl (Diphenhydramine Hcl 25 Mg Tablet) 50 mg PO Q4H PRN PRN Reason: agitation Last Admin: 05/22/21 00:07 Dose: 50 mg Documented by: Hydroxyzine HCl (Hydroxyzine Hcl 25 Mg Tablet) 25 mg PO QID PRN PRN Reason: Anxiety Last Admin: 05/21/21 21:14 Dose: 25 mg Documented by: Ibuprofen (Ibuprofen 600 Mg Tablet) 600 mg PO Q4H PRN PRN Reason: Pain, Moderate (Pain Scale 4-6 Last Admin: 05/22/21 07:13 Dose: 600 mg Documented by: Lidocaine (Lidocaine 4 % Patch Adh..Patch) 1 patch TRANSDERMA DAILY PRN; Protocol PRN Reason: cervical pain Last Admin: 06/20/21 07:24 Dose: 1 patch Documented by: Magnesium Hydroxide (Milk Of Magnesia 30 Ml Oral.Susp) 30 ml PO DAILY PRN PRN Reason: Constipation Nicotine (Nicotine 21 Mg Patch.Td24) 21 mg TRANSDERMA DAILY PRN PRN Reason: smoking cessation Nicotine Polacrilex (Nicotine Polacrilex 2 Mg Gum) 4 mg BUCCAL Q2H PRN PRN Reason: Nicotine Cravings Paliperidone (Paliperidone Er 6 Mg Tab.Er.24) 6 mg PO DAILY [facility] Last Admin: 06/21/21 08:58 Dose: 6 mg Documented by: Paliperidone Palmitate (Paliperidone Palmitate 234 Mg/1.5 Ml Syringe) 234 mg IM Q30D [facility] Last Admin: 06/21/21 12:06 Dose: 234 mg Documented by: Trazodone HCl (Trazodone Hcl 50 Mg Tablet) 50 mg PO BEDTIME PRN PRN Reason: Insomnia Allergies Allergies Allergy/AdvReac Type Severity Reaction Status Date / Time haloperidol [From HALDOL] Allergy Severe DYSTONIA Verified 04/19/21 06:28 ziprasidone [From GEODON] Allergy Severe DYSTONIA Verified 04/19/21 06:28 Assessment & Plan Assessment & Plan (1) Schizoaffective disorder, bipolar type: Status: Acute Code(s): F25.0 - Schizoaffective disorder, bipolar type Assessment and Plan: Continues with psychosis, aggressive agitation, lability of mood. Requiring restraint. Thorazine 50 mg tid with IM back up as needed Thorazine 100 mg bid prn with IM back up as needed. Initially, pt and I discussed an Abilify Maintena trial to address symptoms. From observation of pt's intensity of psychosis, agitation, lability, this does not appear to be the best agent to meet this level of symptom intensity. Will discuss with pt an Invega trial with transition to Sustenna during his hospitalization with initiation. 05/07/21 Invega 6 mg 05/08. Continue Thorazine prn. (pt required IM back up on 05/07/21) 05/08/21 Continue current plan of care. 05/09/21: Ct w plan per [facility] order 05/10/21: Ct Rx plan 05/11/21: Continue Invega titration. 05/12/21 Pt tolerating Invega. Will begin Sustenna on 05/13. 05/13/21 Sustanna given, tolerated. Support, educate, integrate into milieu for added support. 05/14/21 Tolerating Sustenna. Calmer, more focused today. Asking for help with legal issues, attempting to o rganize his responsibilities 05/15/21 Continue current plan. 05/16/21 Continue current plan 05/17/21 Continue current plan 05/18/21 Follow up with probation-pt agrees and signed JEANNETTE Second Sustenna injection 05/21. Tolerating with breakthrough sx with PO as well. 05/19/21 Team/Peers report evening/night agitation Depakote 500 mg ER HS 05/20/21 Continue current regime Scheduled Invega injection for 05/21 Continue to attempt alliance building, education, support 05/21/21 Continue current regimen, no changes to medication, will monitor for benefit on invega sustenna COKER. Still taking PO invega. Has not been taking PO depakote, so will not order a level. 05/22/21 Continue current regimen, pt is tolerating invega sustenna well. Not taking depakote. Appropriate on the unit. 05/23/21: No changes to above med plan. 05/24/21: No changes to above plan, continue PO invega until invega sustenna reaches steady state. Pt somewhat intrusive with high fiving staff but redirectable. 05/26/21: Continue current plan. [facility] application 05/27/21 Pt has been refusing Depakote at hs with resulting poor sleep. Will give Chlorpromazine IM if Depakote is refused. 05/28/21 Continue current plan Labs 06/01/20. 05/29/21 Continue with current plan 05/30/21 continue with current treatment plan 05/31/21 continue with current treatment plan 06/01/21 Discontinue Depakote-pt prefers Chlorpromazine at HS-50 mg as he reports it is more helpful with sleep quality assistance. 06/03/21: Education, support. [facility] application. 06/04/21: Increase Chlorpromazine to 75 mg HS to assist with mgt of lability. 06/05/21: Continue current regime 06/06 continue current medications 06/09/21: Continue current plan of care Support, Educate, Inform, encourage pt's interests. 06/11/21: More engaged in milieu today. Attentive to ADL's with team encouragement. Continue plan of care. 06/12/21: Continue current regime. Sustenna due 06/21/21. 06/13/21 - 06/14/21 No changes Continue with current treatment plan 06/15/21 Continue current plan of care Invega Sustenna injection due 06/21/21. 06/16/21 Continue current plan of care. 06/17/21 Continue current plan of care Increase Chlorpromazine to 100 mg HS Discussed tapering PO Invega most likely between second and third injection of COKER. Discussed with pt treating his mood. At this time he would like more time to assess effects of therapy and COKER. 06/18/21 Continue current plan. Offer support and structure 06/19/10 Sustenna Injection 06/21. 06/20/21 No changes to the above 06/21/21 No change I spent minutes with the patient and/or on the patient floor today, greater than?50% of which was spent counseling/coordinating care. Patient educated on: medication risk/benefits Informed Consent: further education needed Reason for contiued inpatient stay Substantial Risk for: rapid decompensation
[2021-06-21] MEDS: chlorproMAZINE HCl 100 MG TABLET PO (21:16)
[2021-06-22] MEDS: Paliperidone ER 6 MG TAB.ER.24 PO (08:51)
[2021-06-22 16:38] VITALS: RESP 16
--- NOTE | 2021-06-22 17:42 | P.PNPSI_ITS ---
Subjective Subjective Date of Service: 06/22/21 Reason For Visit: Schizophrenia Subjective Notes: Section 8 Interim History: Pt received Invega Alizaenna 06/21/21 without adverse event. Team reports pt to be in need of frequent contact. Today, Mathew talked of wanting discharge prior to court date. States [facility] is too hard core for him. I need freedom-this place sets me back. It is getting depressing. Discussed upcoming court case from 01/2021 which he reports anxiety about-he worries he will be sentenced. Believes if he is discharged he can avoid the court date as I could leave [place] , then return for respite, [facility] and [employer] [facility]. Discussed this idea with pt. Medication Compliance: Yes Side effects from medications: No Attending Groups: Intermittent Review of Systems Acute medical concerns: No Medical Review of Systems: unchanged Review of Systems Reports behavioral changes Psychiatric: Reports anxiety, Reports behavioral changes, Reports depression, Reports irritability, Reports anhedonia, Reports mood swings, Reports paranoia and Reports hallucinations Mental Status Exam Mental Status Exam Patient Appearance: Disheveled Patient Orientation: Person, Place, Time and Situation Level of Consciousness: Alert Patient Behavior: Guarded, Talkative, Suspicious, Restless, Anxious, Resistive to Care, Avoidant, Distractible, Good Eye Contact and Impulsive Mood Description: Suspicious, Fearful, Hostile, Anxious, Labile, Angry and Apprehensive Affect Description: Labile Patient Cognition Impaired: Yes Ability to Follow Directions: Fair Speech Pattern: Spontaneous Speech Memory Description: Episodic Impaired Hallucinations: None (denies) Delusions: Paranoid Ideation Perceptual Disturbances: Depersonalization and Derealization Thought Process: Illogical, Distracted and Evasive Thought Content: positive for Flight of Ideas, positive for Racing, positive for Circumstantial, positive for Goal Oriented, positive for Tangential, positive for Disorganized, positive for Suicidal Ideation (denies) and positive for Homicidal Ideation (denies) Depressive Symptoms: Increased Anxiety, Diff. 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 Orbit X-Ray 04/21/21 15:29 IMPRESSION: No fracture seen. Cervical Spine CT 04/24/21 22:24 IMPRESSION: No evidence of acute intracranial abnormalities. No evidence of acute maxillofacial fractures. However, evaluation of the inferior mandibular body is limited due to motion and although no definite fractures or surrounding soft tissue thickening/hematoma are identified, clinical correlation for pain/tenderness in the inferior mandible should be obtained as this is suboptimally assessed in this study. No acute cervical fractures or malalignment. Face CT 04/24/21 22:24 IMPRESSION: No evidence of acute intracranial abnormalities. No evidence of acute maxillofacial fractures. However, evaluation of the inferior mandibular body is limited due to motion and although no definite fractures or surrounding soft tissue thickening/hematoma are identified, clinical correlation for pain/tenderness in the inferior mandible should be obtained as this is suboptimally assessed in this study. No acute cervical fractures or malalignment. Head CT 04/24/21 22:24 IMPRESSION: No evidence of acute intracranial abnormalities. No evidence of acute maxillofacial fractures. However, evaluation of the inferior mandibular body is limited due to motion and although no definite fractures or surrounding soft tissue thickening/hematoma are identified, clinical correlation for pain/tenderness in the inferior mandible should be obtained as this is suboptimally assessed in this study. No acute cervical fractures or malalignment. 06/22/21-Right Toes-no fracture evidenced. Medications Medications Current Medications Acetaminophen (Acetaminophen 325 Mg Tablet) 650 mg PO Q6H PRN PRN Reason: Headache/Pain Mild Scale (1-3) Last Admin: 05/21/21 21:14 Dose: 650 mg Documented by: Al Hydroxide/Mg Hydroxide (Magnesium Hydrox/Alum Hydrox 30 Ml Oral.Susp) 30 ml PO Q6H PRN PRN Reason: Heartburn/Nausea Last Admin: 05/27/21 00:13 Dose: 30 ml Documented by: Benztropine Mesylate (Benztropine Mesylate 1 Mg Tablet) 1 mg PO TID PRN PRN Reason: Extrapyramidal Effects Chlorpromazine HCl (Chlorpromazine Hcl 100 Mg Tablet) 100 mg PO BID PRN PRN Reason: psychotic agitation Last Admin: 06/03/21 20:44 Dose: 100 mg Documented by: Chlorpromazine HCl (Chlorpromazine Hcl 100 Mg Tablet) 100 mg PO BEDTIME [facility] Last Admin: 06/21/21 21:16 Dose: 100 mg Documented by: Diphenhydramine HCl (Diphenhydramine Hcl 25 Mg Tablet) 50 mg PO Q4H PRN PRN Reason: agitation Last Admin: 05/22/21 00:07 Dose: 50 mg Documented by: Hydroxyzine HCl (Hydroxyzine Hcl 25 Mg Tablet) 25 mg PO QID PRN PRN Reason: Anxiety Last Admin: 05/21/21 21:14 Dose: 25 mg Documented by: Ibuprofen (Ibuprofen 600 Mg Tablet) 600 mg PO Q4H PRN PRN Reason: Pain, Moderate (Pain Scale 4-6 Last Admin: 05/22/21 07:13 Dose: 600 mg Documented by: Lidocaine (Lidocaine 4 % Patch Adh..Patch) 1 patch TRANSDERMA DAILY PRN; Protocol PRN Reason: cervical pain Last Admin: 06/20/21 07:24 Dose: 1 patch Documented by: Magnesium Hydroxide (Milk Of Magnesia 30 Ml Oral.Susp) 30 ml PO DAILY PRN PRN Reason: Constipation Nicotine (Nicotine 21 Mg Patch.Td24) 21 mg TRANSDERMA DAILY PRN PRN Reason: smoking cessation Nicotine Polacrilex (Nicotine Polacrilex 2 Mg Gum) 4 mg BUCCAL Q2H PRN PRN Reason: Nicotine Cravings Paliperidone (Paliperidone Er 6 Mg Tab.Er.24) 6 mg PO DAILY [facility] Last Admin: 06/22/21 08:51 Dose: 6 mg Documented by: Paliperidone Palmitate (Paliperidone Palmitate 234 Mg/1.5 Ml Syringe) 234 mg IM Q30D [facility] Last Admin: 06/21/21 12:06 Dose: 234 mg Documented by: Trazodone HCl (Trazodone Hcl 50 Mg Tablet) 50 mg PO BEDTIME PRN PRN Reason: Insomnia Allergies Allergies Allergy/AdvReac Type Severity Reaction Status Date / Time haloperidol [From HALDOL] Allergy Severe DYSTONIA Verified 04/19/21 06:28 ziprasidone [From GEODON] Allergy Severe DYSTONIA Verified 04/19/21 06:28 Assessment & Plan Assessment & Plan (1) Schizoaffective disorder, bipolar type: Status: Acute Code(s): F25.0 - Schizoaffective disorder, bipolar type Plan Continues with psychosis, aggressive agitation, lability of mood. Requiring restraint. Thorazine 50 mg tid with IM back up as needed Thorazine 100 mg bid prn with IM back up as needed. Initially, pt and I discussed an Abilify Maintena trial to address symptoms. From observation of pt's intensity of psychosis, agitation, lability, this does not appear to be the best agent to meet this level of symptom intensity. Will discuss with pt an Invega trial with transition to Sustenna during his hospitalization with initiation. 05/07/21 Invega 6 mg 05/08. Continue Thorazine prn. (pt required IM back up on 05/07/21) 05/08/21 Continue current plan of care. 05/09/21: Ct w plan per [facility] order 05/10/21: Ct Rx plan 05/11/21: Continue Invega titration. 05/12/21 Pt tolerating Invega. Will begin Sustenna on 05/13. 05/13/21 Sustanna given, tolerated. Support, educate, integrate into milieu for added support. 05/14/21 Tolerating Sustenna. Calmer, more focused today. Asking for help with legal issues, attempting to organize his responsibilities 05/15/21 Continue current plan. 05/16/21 Continue current plan 05/17/21 Continue current plan 05/18/21 Follow up with probation-pt agrees and signed JEANNETTE Second Sustenna injection 05/21. Tolerating with breakthrough sx with PO as well. 05/19/21 Team/Peers report evening/night agitation Depakote 500 mg ER HS 05/20/21 Continue current regime Scheduled Invega injection for 05/21 Continue to attempt alliance building, education, support 05/21/21 Continue current regimen, no changes to medication, will monitor for benefit on invega sustenna COKER. Still taking PO invega. Has not been taking PO depakote, so will not order a level. 05/22/21 Continue current regimen, pt is tolerating invega sustenna well. Not taking depakote. Appropriate on the unit. 05/23/21: No changes to above med plan. 05/24/21: No changes to above plan, continue PO invega until invega sustenna reaches steady state. Pt somewhat intrusive with high fiving staff but redirectable. 05/26/21: Continue current plan. Vibra application 05/27/21 Pt has been refusing Depakote at hs with resulting poor sleep. Will give Chlorpromazine IM if Depakote is refused. 05/28/21 Continue current plan Labs 06/01/20. 05/29/21 Continue with current plan 05/30/21 continue with current treatment plan 05/31/21 continue with current treatment plan 06/01/21 Discontinue Depakote-pt prefers Chlorpromazine at HS-50 mg as he reports it is more helpful with sleep quality assistance. 06/03/21: Education, support. Vibra application. 06/04/21: Increase Chlorpromazine to 75 mg HS to assist with mgt of lability. 06/05/21: Continue current regime 06/06 continue current medications 06/09/21: Continue current plan of care Support, Educate, Inform, encourage pt's interests. 06/11/21: More engaged in milieu today. Attentive to ADL's with team encouragement. Continue plan of care. 06/12/21: Continue current regime. Sustenna due 06/21/21. 06/13/21 - 06/14/21 No changes Continue with current treatment plan 06/15/21 Continue current plan of care Invega Sustenna injection due 06/21/21. 06/16/21 Continue current plan of care. 06/17/21 Continue current plan of care Increase Chlorpromazine to 100 mg HS Discussed tapering PO Invega most likely between second and third injection of COKER. Discussed with pt treating his mood. At this time he would like more time to assess effects of therapy and COKER. 06/18/21 Continue current plan. Offer support and structure 06/19/10 Sustenna Injection 06/21. 06/20/21 No changes to the above 06/21/21 No change 06/22/21 Continue current plan I spent 35 minutes with the patient and/or on the patient floor today, greater than?50% of which was spent counseling/coordinating care. Patient educated on: therapeutic strategies Informed Consent: understands and further education needed Reason for contiued inpatient stay Substantial Risk for: harm to self, harm to others, inability to function and rapid decompensation
[2021-06-22 18:19] VITALS: BP 136/65; PULSE 99
[2021-06-22] MEDS: chlorproMAZINE HCl 100 MG TABLET PO (20:20)
[2021-06-22] MEDS: diphenhydrAMINE HCL 25 MG TABLET 50 MG PO (23:53)
[2021-06-23 06:00] VITALS: BP 106/72; PULSE 86; RESP 16; TEMP 36.1; O2SAT 100
[2021-06-23] MEDS: Paliperidone ER 6 MG TAB.ER.24 PO (08:58)
--- NOTE | 2021-06-23 09:53 | HO.PSYCHPN ---
Subjective Subjective Date of Service: 06/23/21 Reason For Visit: Schizophrenia Subjective Notes: Section 8 Interim History: Asif is visible in the unit, constantly, politely asking staff for different things. At times overly familiar with staff. Pt denies SI/HI. He denies VH/AH. No overt delusional content reported. Pt reports sleeping well with thorazine. Pt wondering if going to respite instead of [facility] may be better for him- advised to discuss with primary treatment team, Lasha as this staff writer is covering for the day. Medication Compliance: Yes Side effects from medications: No Review of Systems Review of Systems no changes Yes all other systems are reviewed and are negative Constitutional: Reports no additional constitutional complaints Musculoskeletal: Reports other (denies, s/p punching a wall with abrasions sustatined) Reports behavioral changes, Reports confusion and Reports memory loss Psychiatric: Reports abnormal sleep pattern, Reports anxiety, Reports behavioral changes, Reports confusion, Reports depression, Reports difficulty concentrating, Reports auditory hallucinations, Reports hopelessness, Reports irritability, Reports anhedonia, Reports memory loss, Reports mood swings, Reports paranoia, Reports visual hallucinations, Reports hallucinations, Reports homicidal ideation, Reports suicidal ideation (denies) and Reports other (aggression, agitation, violence precipitating restraint) Mental Status Exam Mental Status Exam Narrative: Patient Appearance:?Appropriate Patient Orientation:?Person, Place, Time and Situation Level of Consciousness:?Alert Patient Behavior:?Talkative and Good Eye Contact, friendly Mood Description:? good Affect Description:?congruent Patient Cognition Impaired:?No Ability to Follow Directions:?Good Speech Pattern:?Spontaneous Speech Memory Description:?Episodic Impaired Hallucinations:?Auditory and Visual Delusions:?Paranoid Ideation Perceptual Disturbances:?Depersonalization and Derealization Thought Process:?Distracted and Rumination Thought Content:?positive for [place], positive for Circumstantial, positive for Goal Oriented, positive for Perseveration, positive for Preoccupation, positive for Loose Associations and positive for Tangential Depressive Symptoms:?Increased Anxiety and Low Self Esteem Abnormal Motor Activity Signs and Symptoms:?Restlessness Judgement:?Poor Diagnostics Vital Signs (24Hr): Vital Signs - 24 hr 06/22/21 16:38 06/22/21 18:19 06/23/21 06:00 Temperature 97 F Pulse Rate 99 86 Respiratory Rate 16 16 Blood Pressure 136/65 106/72 Pulse Oximetry 100 BMI result Body Mass Index 28.0 Labs Results: 06/01/21 07:51 06/01/21 07:51 Imaging Radiology Impressions: ITS Impressions Face X-Ray 04/21/21 15:29 IMPRESSION: No fracture seen. Orbit X-Ray 04/21/21 15:29 IMPRESSION: No fracture seen. Cervical Spine CT 04/24/21 22:24 IMPRESSION: No evidence of acute intracranial abnormalities. No evidence of acute maxillofacial fractures. However, evaluation of the inferior mandibular body is limited due to motion and although no definite fractures or surrounding soft tissue thickening/hematoma are identified, clinical correlation for pain/tenderness in the inferior mandible should be obtained as this is suboptimally assessed in this study. No acute cervical fractures or malalignment. Face CT 04/24/21 22:24 IMPRESSION: No evidence of acute intracranial abnormalities. No evidence of acute maxillofacial fractures. However, evaluation of the inferior mandibular body is limited due to motion and although no definite fractures or surrounding soft tissue thickening/hematoma are identified, clinical correlation for pain/tenderness in the inferior mandible should be obtained as this is suboptimally assessed in this study. No acute cervical fractures or malalignment. Head CT 04/24/21 22:24 IMPRESSION: No evidence of acute intracranial abnormalities. No evidence of acute maxillofacial fractures. However, evaluation of the inferior mandibular body is limited due to motion and although no definite fractures or surrounding soft tissue thickening/hematoma are identified, clinical correlation for pain/tenderness in the inferior mandible should be obtained as this is suboptimally assessed in this study. No acute cervical fractures or malalignment. Toe X-Ray 06/22/21 19:00 IMPRESSION: No appreciable phalangeal fractures of the right toes. Medications Medications Current Medications Acetaminophen (Acetaminophen 325 Mg Tablet) 650 mg PO Q6H PRN PRN Reason: Headache/Pain Mild Scale (1-3) Last Admin: 05/21/21 21:14 Dose: 650 mg Documented by: Al Hydroxide/Mg Hydroxide (Magnesium Hydrox/Alum Hydrox 30 Ml Oral.Susp) 30 ml PO Q6H PRN PRN Reason: Heartburn/Nausea Last Admin: 05/27/21 00:13 Dose: 30 ml Documented by: Benztropine Mesylate (Benztropine Mesylate 1 Mg Tablet) 1 mg PO TID PRN PRN Reason: Extrapyramidal Effects Chlorpromazine HCl (Chlorpromazine Hcl 100 Mg Tablet) 100 mg PO BID PRN PRN Reason: psychotic agitation Last Admin: 06/03/21 20:44 Dose: 100 mg Documented by: Chlorpromazine HCl (Chlorpromazine Hcl 100 Mg Tablet) 100 mg PO BEDTIME [facility] TO [facility] Last Admin: 06/22/21 20:20 Dose: 100 mg Documented by: Diphenhydramine HCl (Diphenhydramine Hcl 25 Mg Tablet) 50 mg PO Q4H PRN PRN Reason: agitation Last Admin: 06/22/21 23:53 Dose: 50 mg Documented by: Hydroxyzine HCl (Hydroxyzine Hcl 25 Mg Tablet) 25 mg PO QID PRN PRN Reason: Anxiety Last Admin: 05/21/21 21:14 Dose: 25 mg Documented by: Ibuprofen (Ibuprofen 600 Mg Tablet) 600 mg PO Q4H PRN PRN Reason: Pain, Moderate (Pain Scale 4-6 Last Admin: 05/22/21 07:13 Dose: 600 mg Documented by: Lidocaine (Lidocaine 4 % Patch Adh..Patch) 1 patch TRANSDERMA DAILY PRN; Protocol PRN Reason: cervical pain Last Admin: 06/20/21 07:24 Dose: 1 patch Documented by: Magnesium Hydroxide (Milk Of Magnesia 30 Ml Oral.Susp) 30 ml PO DAILY PRN PRN Reason: Constipation Nicotine (Nicotine 21 Mg Patch.Td24) 21 mg TRANSDERMA DAILY PRN PRN Reason: smoking cessation Nicotine Polacrilex (Nicotine Polacrilex 2 Mg Gum) 4 mg BUCCAL Q2H PRN PRN Reason: Nicotine Cravings Paliperidone (Paliperidone Er 6 Mg Tab.Er.24) 6 mg PO DAILY [facility] Last Admin: 06/23/21 08:58 Dose: 6 mg Documented by: Paliperidone Palmitate (Paliperidone Palmitate 234 Mg/1.5 Ml Syringe) 234 mg IM Q30D [facility] Last Admin: 06/21/21 12:06 Dose: 234 mg Documented by: Trazodone HCl (Trazodone Hcl 50 Mg Tablet) 50 mg PO BEDTIME PRN PRN Reason: Insomnia Allergies Allergies Allergy/AdvReac Type Severity Reaction Status Date / Time haloperidol [From HALDOL] Allergy Severe DYSTONIA Verified 04/19/21 06:28 ziprasidone [From GEODON] Allergy Severe DYSTONIA Verified 04/19/21 06:28 Assessment & Plan Assessment & Plan (1) Schizoaffective disorder, bipolar type: Status: Acute Code(s): F25.0 - Schizoaffective disorder, bipolar type Assessment and Plan: Continues with psychosis, aggressive agitation, lability of mood. Requiring restraint. Thorazine 50 mg tid with IM back up as needed Thorazine 100 mg bid prn with IM back up as needed. Initially, pt and I discussed an Abilify Maintena trial to address symptoms. From observation of pt's intensity of psychosis, agitation, lability, this does not appear to be the best agent to meet this level of symptom intensity. Will discuss with pt an Invega trial with transition to Sustenna during his hospitalization with initiation. 05/07/21 Invega 6 mg 05/08. Continue Thorazine prn. (pt required IM back up on 05/07/21) 05/08/21 Continue current plan of care. 05/09/21: Ct w plan per [facility] order 05/10/21: Ct Rx plan 05/11/21: Continue Invega titration. 05/12/21 Pt tolerating Invega. Will begin Sustenna on 05/13. 05/13/21 Sustanna given, tolerated. Support, educate, integrate into milieu for added support. 05/14/21 Tolerating Sustenna. Calmer, more focused today. Asking for help with legal issues, attempting to organize his responsibilities 05/15/21 Continue current plan. 05/16/21 Continue current plan 05/17/21 Continue current plan 05/18/21 Follow up with probation-pt agrees and signed JEANNETTE Second Sustenna injection 05/21. Tolerating with breakthrough sx with PO as well. 05/19/21 Team/Peers report evening/night agitation Depakote 500 mg ER HS 05/20/21 Continue current regime Scheduled Invega injection for 05/21 Continue to attempt alliance building, education, support 05/21/21 Continue current regimen, no changes to medication, will monitor for benefit on invega sustenna COKER. Still taking PO invega. Has not been taking PO depakote, so will not order a level. 05/22/21 Continue current regimen, pt is tolerating invega sustenna well. Not taking depakote. Appropriate on the unit. 05/23/21: No changes to above med plan. 05/24/21: No changes to above plan, continue PO invega until invega sustenna reaches steady state. Pt somewhat intrusive with high fiving staff but redirectable. 05/26/21: Continue current plan. Vibra application 05/27/21 Pt has been refusing Depakote at hs with resulting poor sleep. Will give Chlorpromazine IM if Depakote is refused. 05/28/21 Continue current plan Labs 06/01/20. 05/29/21 Continue with current plan 05/30/21 continue with current treatment plan 05/31/21 continue with current treatment plan 06/01/21 Discontinue Depakote-pt prefers Chlorpromazine at HS-50 mg as he reports it is more helpful with sleep quality assistance. 06/03/21: Education, support. Vibra application. 06/04/21: Increase Chlorpromazine to 75 mg HS to assist with mgt of lability. 06/05/21: Continue current regime 06/06 continue current medications 06/09/21: Continue current plan of care Support, Educate, Inform, encourage pt's interests. 06/11/21: More engaged in milieu today. Attentive to ADL's with team encouragement. Continue plan of care. 06/12/21: Continue current regime. Sustenna due 06/21/21. 06/13/21 - 06/14/21 No changes Continue with current treatment plan 06/15/21 Continue current plan of care Invega Sustenna injection due 06/21/21. 06/16/21 Continue current plan of care. 06/17/21 Continue current plan of care Increase Chlorpromazine to 100 mg HS Discussed tapering PO Invega most likely between second and third injection of COKER. Discussed with pt treating his mood. At this time he would like more time to assess effects of therapy and COKER. 06/18/21 Continue current plan. Offer support and structure 06/19/10 Sustenna Injection 06/21. 06/20/21 No changes to the above 06/21/21 No change 05/23/22- pt without SI/HI/VH/AH, no overt delusional content reported. overly familiar with staff/asking multiple request but polite and able to be redirected. I spent minutes with the patient and/or on the patient floor today, greater than?50% of which was spent counseling/coordinating care. Reason for contiued inpatient stay Substantial Risk for: inability to function
[2021-06-23 18:00] VITALS: BP 138/66; PULSE 77; RESP 16; TEMP 36.6
[2021-06-23] MEDS: chlorproMAZINE HCl 100 MG TABLET PO (19:48)
[2021-06-23] MEDS: Acetaminophen 325 MG TABLET 650 MG PO (19:51)
[2021-06-23 20:18] LABS: COVID-19 Test Negative (Negative)
[2021-06-24 06:00] VITALS: BP 118/71; PULSE 88; TEMP 36.4; O2SAT 98
--- NOTE | 2021-06-24 10:11 | P.PNPSI_ITS ---
Subjective Subjective Date of Service: 06/24/21 Reason For Visit: Schizophrenia Subjective Notes: Section 8 Interim History: Asif is visible in the unit, continues to constantly approaching staff with different requests. At times overly familiar with staff and needs constant redirection. IDA Adler working with pt on behavioral plan so he is not disruptive to staff during the day. Pt denies SI/HI. He denies VH/AH. No overt delusional content reported. Pt reports sleeping well with thorazine. Pt wondering if going to [facility] instead of [facility] may be better for him- advised to discuss with primary treatment team. Medication Compliance: Yes Review of Systems Review of Systems no changes Yes all other systems are reviewed and are negative Constitutional: Reports no additional constitutional complaints Musculoskeletal: Reports other (denies, s/p punching a wall with abrasions sustatined) Reports behavioral changes, Reports confusion and Reports memory loss Psychiatric: Reports abnormal sleep pattern, Reports anxiety, Reports behavioral changes, Reports confusion, Reports depression, Reports difficulty concentrating, Reports auditory hallucinations, Reports hopelessness, Reports irritability, Reports anhedonia, Reports memory loss, Reports mood swings, Reports paranoia, Reports visual hallucinations, Reports hallucinations, Reports homicidal ideation, Reports suicidal ideation (denies) and Reports other (aggression, agitation, violence precipitating restraint) Mental Status Exam Mental Status Exam Narrative: Patient Appearance:?Appropriate Patient Orientation:?Person, Place, Time and Situation Level of Consciousness:?Alert Patient Behavior:?Talkative and Good Eye Contact, friendly Mood Description:? good Affect Description:?congruent Patient Cognition Impaired:?No Ability to Follow Directions:?Good Speech Pattern:?Spontaneous Speech Memory Description:?Episodic Impaired Hallucinations:?none Delusions:?no overt delusional content Thought Process:?Distracted and Rumination Thought Content:?no overt psychosis noted, talking about going to [facility]ite and not to [facility] Depressive Symptoms:?Increased Anxiety and Low Self Esteem Abnormal Motor Activity Signs and Symptoms:?Restlessness Judgement:?Poor Diagnostics Vital Signs (24Hr): Vital Signs - 24 hr 06/23/21 18:00 06/24/21 06:00 Temperature 97.9 F 97.6 F Pulse Rate 77 88 Respiratory Rate 16 Blood Pressure 138/66 118/71 Pulse Oximetry 98 BMI result Verdana 4 Body Mass Index Verdana 4 28.0 Verdana 4 Verdana 4 Labs Results: 06/01/21 07:51 06/01/21 07:51 Labs: Laboratory Results - last 48 hr 06/23/21 19:59 COVID-19 ([facility]) Negative COVID-19 Clin Com See Note Imaging Radiology Impressions: ITS Impressions Face X-Ray 04/21/21 15:29 IMPRESSION: No fracture seen. Orbit X-Ray 04/21/21 15:29 IMPRESSION: No fracture seen. Cervical Spine CT 04/24/21 22:24 IMPRESSION: No evidence of acute intracranial abnormalities. No evidence of acute maxillofacial fractures. However, evaluation of the inferior mandibular body is limited due to motion and although no definite fractures or surrounding soft tissue thickening/hematoma are identified, clinical correlation for pain/tenderness in the inferior mandible should be obtained as this is suboptimally assessed in this study. No acute cervical fractures or malalignment. Face CT 04/24/21 22:24 IMPRESSION: No evidence of acute intracranial abnormalities. No evidence of acute maxillofacial fractures. However, evaluation of the inferior mandibular body is limited due to motion and although no definite fractures or surrounding soft tissue thickening/hematoma are identified, clinical correlation for pain/tenderness in the inferior mandible should be obtained as this is suboptimally assessed in this study. No acute cervical fractures or malalignment. Head CT 04/24/21 22:24 IMPRESSION: No evidence of acute intracranial abnormalities. No evidence of acute maxillofacial fractures. However, evaluation of the inferior mandibular body is limited due to motion and although no definite fractures or surrounding soft tissue thickening/hematoma are identified, clinical correlation for pain/tenderness in the inferior mandible should be obtained as this is suboptimally assessed in this study. No acute cervical fractures or malalignment. Toe X-Ray 06/22/21 19:00 IMPRESSION: No appreciable phalangeal fractures of the right toes. Medications Medications Current Medications Acetaminophen (Acetaminophen 325 Mg Tablet) 650 mg PO Q6H PRN PRN Reason: Headache/Pain Mild Scale (1-3) Last Admin: 06/23/21 19:51 Dose: 650 mg Documented by: Al Hydroxide/Mg Hydroxide (Magnesium Hydrox/Alum Hydrox 30 Ml Oral.Susp) 30 ml PO Q6H PRN PRN Reason: Heartburn/Nausea Last Admin: 05/27/21 00:13 Dose: 30 ml Documented by: Benztropine Mesylate (Benztropine Mesylate 1 Mg Tablet) 1 mg PO TID PRN PRN Reason: Extrapyramidal Effects Chlorpromazine HCl (Chlorpromazine Hcl 100 Mg Tablet) 100 mg PO BID PRN PRN Reason: psychotic agitation Last Admin: 06/03/21 20:44 Dose: 100 mg Documented by: Chlorpromazine HCl (Chlorpromazine Hcl 100 Mg Tablet) 100 mg PO BEDTIME MARGAUX Last Admin: 06/23/21 19:48 Dose: 100 mg Documented by: Diphenhydramine HCl (Diphenhydramine Hcl 25 Mg Tablet) 50 mg PO Q4H PRN PRN Reason: agitation Last Admin: 06/22/21 23:53 Dose: 50 mg Documented by: Hydroxyzine HCl (Hydroxyzine Hcl 25 Mg Tablet) 25 mg PO QID PRN PRN Reason: Anxiety Last Admin: 05/21/21 21:14 Dose: 25 mg Documented by: Ibuprofen (Ibuprofen 600 Mg Tablet) 600 mg PO Q4H PRN PRN Reason: Pain, Moderate (Pain Scale 4-6 Last Admin: 05/22/21 07:13 Dose: 600 mg Documented by: Lidocaine (Lidocaine 4 % Patch Adh..Patch) 1 patch TRANSDERMA DAILY PRN; Protocol PRN Reason: cervical pain Last Admin: 06/20/21 07:24 Dose: 1 patch Documented by: Magnesium Hydroxide (Milk Of Magnesia 30 Ml Oral.Susp) 30 ml PO DAILY PRN PRN Reason: Constipation Nicotine (Nicotine 21 Mg Patch.Td24) 21 mg TRANSDERMA DAILY PRN PRN Reason: smoking cessation Nicotine Polacrilex (Nicotine Polacrilex 2 Mg Gum) 4 mg BUCCAL Q2H PRN PRN Reason: Nicotine Cravings Paliperidone Palmitate (Paliperidone Palmitate 234 Mg/1.5 Ml Syringe) 234 mg IM Q30D [facility] Last Admin: 06/21/21 12:06 Dose: 234 mg Documented by: Trazodone HCl (Trazodone Hcl 50 Mg Tablet) 50 mg PO BEDTIME PRN PRN Reason: Insomnia Allergies Allergies Allergy/AdvReac Type Severity Reaction Status Date / Time haloperidol [From HALDOL] Allergy Severe DYSTONIA Verified 04/19/21 06:28 ziprasidone [From GEODON] Allergy Severe DYSTONIA Verified 04/19/21 06:28 Assessment & Plan Assessment & Plan (1) Schizoaffective disorder, bipolar type: Status: Acute Code(s): F25.0 - Schizoaffective disorder, bipolar type Plan Continues with psychosis, aggressive agitation, lability of mood. Requiring restraint. Thorazine 50 mg tid with IM back up as needed Thorazine 100 mg bid prn with IM back up as needed. Initially, pt and I discussed an Abilify Maintena trial to address symptoms. From observation of pt's intensity of psychosis, agitation, lability, this does not appear to be the best agent to meet this level of symptom intensity. Will discuss with pt an Invega trial with transition to Sustenna during his h ospitalization with initiation. 05/07/21 Invega 6 mg 05/08. Continue Thorazine prn. (pt required IM back up on 05/07/21) 05/08/21 Continue current plan of care. 05/09/21: Ct w plan per [facility] order 05/10/21: Ct Rx plan 05/11/21: Continue Invega titration. 05/12/21 Pt tolerating Invega. Will begin Sustenna on 05/13. 05/13/21 Sustanna given, tolerated. Support, educate, integrate into milieu for added support. 05/14/21 Tolerating Sustenna. Calmer, more focused today. Asking for help with legal issues, attempting to organize his responsibilities 05/15/21 Continue current plan. 05/16/21 Continue current plan 05/17/21 Continue current plan 05/18/21 Follow up with probation-pt agrees and signed JEANNETTE Second Sustenna injection 05/21. Tolerating with breakthrough sx with PO as well. 05/19/21 Team/Peers report evening/night agitation Depakote 500 mg ER HS 05/20/21 Continue current regime Scheduled Invega injection for 05/21 Continue to attempt alliance building, education, support 05/21/21 Continue current regimen, no changes to medication, will monitor for benefit on invega sustenna COKER. Still taking PO invega. Has not been taking PO depakote, so will not order a level. 05/22/21 Continue current regimen, pt is tolerating invega sustenna well. Not taking depakote. Appropriate on the unit. 05/23/21: No changes to above med plan. 05/24/21: No changes to above plan, continue PO invega until invega sustenna reaches steady state. Pt somewhat intrusive with high fiving staff but redirectable. 05/26/21: Continue current plan. [facility] application 05/27/21 Pt has been refusing Depakote at hs with resulting poor sleep. Will give Chlorpromazine IM if Depakote is refused. 05/28/21 Continue current plan Labs 06/01/20. 05/29/21 Continue with current plan 05/30/21 continue with current treatment plan 05/31/21 continue with current treatment plan 06/01/21 Discontinue Depakote-pt prefers Chlorpromazine at HS-50 mg as he reports it is more helpful with sleep quality assistance. 06/03/21: Education, support. [facility] application. 06/04/21: Increase Chlorpromazine to 75 mg HS to assist with mgt of lability. 06/05/21: Continue current regime 06/06 continue current medications 06/09/21: Continue current plan of care Support, Educate, Inform, encourage pt's interests. 06/11/21: More engaged in milieu today. Attentive to ADL's with team encouragement. Continue plan of care. 06/12/21: Continue current regime. Sustenna due 06/21/21. 06/13/21 - 06/14/21 No changes Continue with current treatment plan 06/15/21 Continue current plan of care Invega Sustenna injection due 06/21/21. 06/16/21 Continue current plan of care. 06/17/21 Continue current plan of care Increase Chlorpromazine to 100 mg HS Discussed tapering PO Invega most likely between second and third injection of COKER. Discussed with pt treating his mood. At this time he would like more time to assess effects of therapy and COKER. 06/18/21 Continue current plan. Offer support and structure 06/19/10 Sustenna Injection 06/21. 06/20/21 No changes to the above 06/21/21 No change 05/23/22- pt without SI/HI/VH/AH, no overt delusional content reported. overly familiar with staff/asking multiple request but polite and able to be redirected. I spent minutes with the patient and/or on the patient floor today, greater than?50% of which was spent counseling/coordinating care. Reason for contiued inpatient stay Substantial Risk for: inability to function
[2021-06-24 18:29] VITALS: BP 113/70; PULSE 95; RESP 18; TEMP 36.7; O2SAT 98
[2021-06-24] MEDS: chlorproMAZINE HCl 100 MG TABLET PO (21:02)
[2021-06-25 18:00] VITALS: RESP 16
--- NOTE | 2021-06-25 18:19 | P.PNPSI_ITS ---
Subjective Subjective Date of Service: 06/25/21 Reason For Visit: Schizophrenia Subjective Notes: Section 8 Interim History: Team report Mathew to be exhibiting poor boundaries with female team members- targeting one nurse as his and confronting her when she is providing care for others. Pt also reportedly initiated a precipitous buttock bump with another female staff. These symptoms are consistent with several community reports of poor boundary violations and allegations of sexual misconduct. Pt continues to decline [facility] referral, stating it is too restrictive and that he is wanting freedom. Believes he is not needing to attend court and that he wants to travel to [place] to take a much needed vacation. Met with pt and Tanisha LUND to clarify rationale for [facility] transfer request and to discuss behaviors observed and alleged in community. Pt was angry and found difficulty in this discussion. Discussed that when he came to [facility] [place] was critically ill psychiatrically with psychosis-he denied this-he reports that he does not have a mental illness and he was admitted soley for homelessness . Reviewed community concerns and allegations as reported by the housing authority, court, family. Pt targeting mother and accusatory of her attempts to sabotage him. Reviewed behaviors seen by team over the past days-pt denies, unable to process these concerns. Discussed with pt that his illness, symptoms of psychosis, poor boundary issues reported in community and on the unit are the reasons for the [facility] referral-to give him the opportunity for a more thorough rehabilitation experience to address these issues. Pt responded with anger. Medication Compliance: Yes Side effects from medications: No Attending Groups: Intermittent Review of Systems Acute medical concerns: No Medical Review of Systems: unchanged Review of Systems Genitourinary: Reports change in libido Reports behavioral changes Psychiatric: Reports behavioral changes, Reports change in libido, Reports auditory hallucinations, Reports irritability, Reports mood swings, Reports paranoia and Reports hallucinations Endocrine: Reports change in libido Mental Status Exam Mental Status Exam Patient Appearance: Appropriate Patient Orientation: Person, Place, Time and Situation Level of Consciousness: Alert Patient Behavior: Guarded, Talkative, Suspicious, Aggressive, Resistive to Care, Distractible, Good Eye Contact and Impulsive Mood Description: Angry Affect Description: Angry Patient Cognition Impaired: Yes Ability to Follow Directions: Fair Speech Pattern: Spontaneous Speech and Cofabulation Memory Description: Remote Impaired, Watch Electrician Impaired and Episodic Impaired Hallucinations: Auditory Delusions: Being Controlled, Paranoid Ideation and Grandiose Perceptual Disturbances: Hallucinations Thought Process: Illogical, Distracted and Evasive Thought Content: positive for Flight of Ideas, positive for Circumstantial, positive for Preoccupation, positive for Thought Blocking and positive for Evasive Depressive Symptoms: Increased Irritability Abnormal Motor Activity Signs and Symptoms: Aggression, Agitation and Restlessness Judgement: Poor Diagnostics Vital Signs (24Hr): Vital Signs - 24 hr 06/24/21 18:29 Temperature 98.0 F Pulse Rate 95 Respiratory Rate 18 Blood Pressure 113/70 Pulse Oximetry 98 BMI result Verdana 4 Body Mass Index Verdana 4 28.0 Verdana 4 Verdana 4 Labs Results: 06/01/21 07:51 06/01/21 07:51 Labs: Laboratory Results - last 48 hr 06/23/21 19:59 COVID-19 ([facility]) Negative COVID-19 Clin Com See Note Imaging Radiology Impressions: ITS Impressions Face X-Ray 04/21/21 15:29 IMPRESSION: No fracture seen. Orbit X-Ray 04/21/21 15:29 IMPRESSION: No fracture seen. Cervical Spine CT 04/24/21 22:24 IMPRESSION: No evidence of acute intracranial abnormalities. No evidence of acute maxillofacial fractures. However, evaluation of the inferior mandibular body is limited due to motion and although no definite fractures or surrounding soft tissue thickening/hematoma are identified, clinical correlation for pain/tenderness in the inferior mandible should be obtained as this is suboptimally assessed in this study. No acute cervical fractures or malalignment. Face CT 04/24/21 22:24 IMPRESSION: No evidence of acute intracranial abnormalities. No evidence of acute maxillofacial fractures. However, evaluation of the inferior mandibular body is limited due to motion and although no definite fractures or surrounding soft tissue thickening/hematoma are identified, clinical correlation for pain/tenderness in the inferior mandible should be obtained as this is suboptimally assessed in this study. No acute cervical fractures or malalignment. Head CT 04/24/21 22:24 IMPRESSION: No evidence of acute intracranial abnormalities. No evidence of acute maxillofacial fractures. However, evaluation of the inferior mandibular body is limited due to motion and although no definite fractures or surrounding soft tissue thickening/hematoma are identified, clinical correlation for pain/tenderness in the inferior mandible should be obtained as this is suboptimally assessed in this study. No acute cervical fractures or malalignment. Toe X-Ray 06/22/21 19:00 IMPRESSION: No appreciable phalangeal fractures of the right toes. Medications Medications Current Medications Acetaminophen (Acetaminophen 325 Mg Tablet) 650 mg PO Q6H PRN PRN Reason: Headache/Pain Mild Scale (1-3) Last Admin: 06/23/21 19:51 Dose: 650 mg Documented by: Al Hydroxide/Mg Hydroxide (Magnesium Hydrox/Alum Hydrox 30 Ml Oral.Susp) 30 ml PO Q6H PRN PRN Reason: Heartburn/Nausea Last Admin: 05/27/21 00:13 Dose: 30 ml Documented by: Benztropine Mesylate (Benztropine Mesylate 1 Mg Tablet) 1 mg PO TID PRN PRN Reason: Extrapyramidal Effects Chlorpromazine HCl (Chlorpromazine Hcl 100 Mg Tablet) 100 mg PO BID PRN PRN Reason: psychotic agitation Last Admin: 06/03/21 20:44 Dose: 100 mg Documented by: Chlorpromazine HCl (Chlorpromazine Hcl 100 Mg Tablet) 100 mg PO BEDTIME MARGAUX Last Admin: 06/24/21 21:02 Dose: 100 mg Documented by: Diphenhydramine HCl (Diphenhydramine Hcl 25 Mg Tablet) 50 mg PO Q4H PRN PRN Reason: agitation Last Admin: 06/22/21 23:53 Dose: 50 mg Documented by: Hydroxyzine HCl (Hydroxyzine Hcl 25 Mg Tablet) 25 mg PO QID PRN PRN Reason: Anxiety Last Admin: 05/21/21 21:14 Dose: 25 mg Documented by: Ibuprofen (Ibuprofen 600 Mg Tablet) 600 mg PO Q4H PRN PRN Reason: Pain, Moderate (Pain Scale 4-6 Last Admin: 05/22/21 07:13 Dose: 600 mg Documented by: Lidocaine (Lidocaine 4 % Patch Adh..Patch) 1 patch TRANSDERMA DAILY PRN; Protocol PRN Reason: cervical pain Last Admin: 06/20/21 07:24 Dose: 1 patch Documented by: Magnesium Hydroxide (Milk Of Magnesia 30 Ml Oral.Susp) 30 ml PO DAILY PRN PRN Reason: Constipation Nicotine (Nicotine 21 Mg Patch.Td24) 21 mg TRANSDERMA DAILY PRN PRN Reason: smoking cessation Nicotine Polacrilex (Nicotine Polacrilex 2 Mg Gum) 4 mg BUCCAL Q2H PRN PRN Reason: Nicotine Cravings Paliperidone Palmitate (Paliperidone Palmitate 234 Mg/1.5 Ml Syringe) 234 mg IM Q30D [facility] Last Admin: 06/21/21 12:06 Dose: 234 mg Documented by: Trazodone HCl (Trazodone Hcl 50 Mg Tablet) 50 mg PO BEDTIME PRN PRN Reason: Insomnia Allergies Allergies Allergy/AdvReac Type Severity Reaction Status Date / Time haloperidol [From HALDOL] Allergy Severe DYSTONIA Verified 04/19/21 06:28 ziprasidone [From GEODON] Allergy Severe DYSTONIA Verified 04/19/21 06:28 Assessment & Plan Assessment & Plan (1) Schizoaffective disorder, bipolar type: Status: Acute Code(s): F25.0 - Schizoaffective disorder, bipolar type Plan Continues with psychosis, aggressive agitation, lability of mood. Requiring restraint. Thorazine 50 mg tid with IM back up as needed Thorazine 100 mg bid prn with IM back up as needed. Initially, pt and I discussed an Abilify Maintena trial to address symptoms. From observation of pt's intensity of psychosis, agitation, lability, this does not appear to be the best agent to meet this level of symptom intensity. Will discuss with pt an Invega trial with transition to Sustenna during his hospitalization with initiation. 05/07/21 Invega 6 mg 05/08. Continue Thorazine prn. (pt required IM back up on 05/07/21) 05/08/21 Continue current plan of care. 05/09/21: Ct w plan per [facility] order 05/10/21: Ct Rx plan 05/11/21: Continue Invega titration. 05/12/21 Pt tolerating Invega. Will begin Sustenna on 05/13. 05/13/21 Sustanna given, tolerated. Support, educate, integrate into milieu for added support. 05/14/21 Tolerating Sustenna. Calmer, more focused today. Asking for help with legal issues, attempting to organize his responsibilities 05/15/21 Continue current plan. 05/16/21 Continue current plan 05/17/21 Continue current plan 05/18/21 Follow up with probation-pt agrees and signed JEANNETTE Second Sustenna injection 05/21. Tolerating with breakthrough sx with PO as well. 05/19/21 Team/Peers report evening/night agitation Depakote 500 mg ER HS 05/20/21 Continue current regime Scheduled Invega injection for 05/21 Continue to attempt alliance building, education, support 05/21/21 Continue current regimen, no changes to medication, will monitor for benefit on invega sustenna COKER. Still taking PO invega. Has not been taking PO depakote, so will not order a level. 05/22/21 Continue current regimen, pt is tolerating invega sustenna well. Not taking depakote. Appropriate on the unit. 05/23/21: No changes to above med plan. 05/24/21: No changes to above plan, continue PO invega until invega sustenna reaches steady state. Pt somewhat intrusive with high fiving staff but redirectable. 05/26/21: Continue current plan. [facility] application 05/27/21 Pt has been refusing Depakote at hs with resulting poor sleep. Will give Chlorpromazine IM if Depakote is refused. 05/28/21 Continue current plan Labs 06/01/20. 05/29/21 Continue with current plan 05/30/21 continue with current treatment plan 05/31/21 continue with current treatment plan 06/01/21 Discontinue Depakote-pt prefers Chlorpromazine at HS-50 mg as he reports it is more helpful with sleep quality assistance. 06/03/21: Education, support. [facility] application. 06/04/21: Increase Chlorpromazine to 75 mg HS to assist with mgt of lability. 06/05/21: Continue current regime 06/06 continue current medications 06/09/21: Continue current plan of care Support, Educate, Inform, encourage pt's interests. 06/11/21: More engaged in milieu today. Attentive to ADL's with team encourageme nt. Continue plan of care. 06/12/21: Continue current regime. Sustenna due 06/21/21. 06/13/21 - 06/14/21 No changes Continue with current treatment plan 06/15/21 Continue current plan of care Invega Sustenna injection due 06/21/21. 06/16/21 Continue current plan of care. 06/17/21 Continue current plan of care Increase Chlorpromazine to 100 mg HS Discussed tapering PO Invega most likely between second and third injection of COKER. Discussed with pt treating his mood. At this time he would like more time to assess effects of therapy and COKER. 06/18/21 Continue current plan. Offer support and structure 06/19/10 Sustenna Injection 06/21. 06/20/21 No changes to the above 06/21/21 No change 06/23/21- pt without SI/HI/VH/AH, no overt delusional content reported. overly familiar with staff/asking multiple request but polite and able to be redirected. 06/25/21- Pt with very poor insight regarding illness, rationale for his treatment. Elopement risk precautions. Pt has been offered mood stabilizer options. He declines at this time. I spent 60 minutes with the patient and/or on the patient floor today, greater than?50% of which was spent counseling/coordinating care. Patient educated on: diagnosis, medication risk/benefits and therapeutic strategies Informed Consent: does not understand Reason for contiued inpatient stay Substantial Risk for: harm to self, harm to others, inability to function and rapid decompensation
[2021-06-25] MEDS: chlorproMAZINE HCl 100 MG TABLET PO (21:23)
--- NOTE | 2021-06-26 16:18 | P.PNPSI_ITS ---
Subjective Subjective Date of Service: 06/26/21 Reason For Visit: Schizophrenia Subjective Notes: Section 8 Interim History: Pt continues with anger expressed to team regarding discussion with him on 06/25 re rationale for [employer] application. Tells team he will attempt to run. Met with pt later in the afternoon. He reports that he understands our discussion of 06/25 . Asks if he will receive help at [employer] to put my life back together - discussed. Talked of his daughter and wanting to have a relationship with her as she enters adulthood (currently age 13 he reports and he last saw her he believes in 2008). Medication Compliance: Yes Side effects from medications: No Attending Groups: Intermittent Review of Systems Acute medical concerns: No Medical Review of Systems: unchanged Review of Systems Reports behavioral changes Psychiatric: Reports behavioral changes, Reports auditory hallucinations and Reports paranoia Mental Status Exam Mental Status Exam Patient Appearance: Appropriate Patient Orientation: Person, Place, Time and Situation Level of Consciousness: Alert Patient Behavior: Guarded, Talkative, Distractible and Good Eye Contact Mood Description: Flat Affect Description: Flat Patient Cognition Impaired: Yes Ability to Follow Directions: Fair Speech Pattern: Spontaneous Speech and Cofabulation Memory Description: Remote Impaired, Test Preparation Tutor Impaired and Episodic Impaired Hallucinations: Auditory Delusions: Paranoid Ideation Perceptual Disturbances: Depersonalization and Derealization Thought Process: Distracted Thought Content: positive for Tangential Depressive Symptoms: Increased Anxiety Abnormal Motor Activity Signs and Symptoms: Restlessness Judgement: Poor Diagnostics Vital Signs (24Hr): Vital Signs - 24 hr 06/25/21 18:00 Respiratory Rate 16 BMI result Verdana 4 Body Mass Index Verdana 4 28.0 Verdana 4 Verdana 4 Labs Results: 06/01/21 07:51 06/01/21 07:51 Imaging Radiology Impressions: ITS Impressions Face X-Ray 04/21/21 15:29 IMPRESSION: No fracture seen. Orbit X-Ray 04/21/21 15:29 IMPRESSION: No fracture seen. Cervical Spine CT 04/24/21 22:24 IMPRESSION: No evidence of acute intracranial abnormalities. No evidence of acute maxillofacial fractures. However, evaluation of the inferior mandibular body is limited due to motion and although no definite fractures or surrounding soft tissue thickening/hematoma are identified, clinical correlation for pain/tenderness in the inferior mandible should be obtained as this is suboptimally assessed in this study. No acute cervical fractures or malalignment. Face CT 04/24/21 22:24 IMPRESSION: No evidence of acute intracranial abnormalities. No evidence of acute maxillofacial fractures. However, evaluation of the inferior mandibular body is limited due to motion and although no definite fractures or surrounding soft tissue thickening/hematoma are identified, clinical correlation for pain/tenderness in the inferior mandible should be obtained as this is suboptimally assessed in this study. No acute cervical fractures or malalignment. Head CT 04/24/21 22:24 IMPRESSION: No evidence of acute intracranial abnormalities. No evidence of acute maxillofacial fractures. However, evaluation of the inferior mandibular body is limited due to motion and although no definite fractures or surrounding soft tissue thickening/hematoma are identified, clinical correlation for pain/tenderness in the inferior mandible should be obtained as this is suboptimally assessed in this study. No acute cervical fractures or malalignment. Toe X-Ray 06/22/21 19:00 IMPRESSION: No appreciable phalangeal fractures of the right toes. Medications Medications Current Medications Acetaminophen (Acetaminophen 325 Mg Tablet) 650 mg PO Q6H PRN PRN Reason: Headache/Pain Mild Scale (1-3) Last Admin: 06/23/21 19:51 Dose: 650 mg Documented by: Al Hydroxide/Mg Hydroxide (Magnesium Hydrox/Alum Hydrox 30 Ml Oral.Susp) 30 ml PO Q6H PRN PRN Reason: Heartburn/Nausea Last Admin: 05/27/21 00:13 Dose: 30 ml Documented by: Benztropine Mesylate (Benztropine Mesylate 1 Mg Tablet) 1 mg PO TID PRN PRN Reason: Extrapyramidal Effects Chlorpromazine HCl (Chlorpromazine Hcl 100 Mg Tablet) 100 mg PO BID PRN PRN Reason: psychotic agitation Last Admin: 06/03/21 20:44 Dose: 100 mg Documented by: Chlorpromazine HCl (Chlorpromazine Hcl 100 Mg Tablet) 100 mg PO BEDTIME MARGAUX Last Admin: 06/25/21 21:23 Dose: 100 mg Documented by: Diphenhydramine HCl (Diphenhydramine Hcl 25 Mg Tablet) 50 mg PO Q4H PRN PRN Reason: agitation Last Admin: 06/22/21 23:53 Dose: 50 mg Documented by: Hydroxyzine HCl (Hydroxyzine Hcl 25 Mg Tablet) 25 mg PO QID PRN PRN Reason: Anxiety Last Admin: 05/21/21 21:14 Dose: 25 mg Documented by: Ibuprofen (Ibuprofen 600 Mg Tablet) 600 mg PO Q4H PRN PRN Reason: Pain, Moderate (Pain Scale 4-6 Last Admin: 05/22/21 07:13 Dose: 600 mg Documented by: Lidocaine (Lidocaine 4 % Patch Adh..Patch) 1 patch TRANSDERMA DAILY PRN; Protocol PRN Reason: cervical pain Last Admin: 06/20/21 07:24 Dose: 1 patch Documented by: Magnesium Hydroxide (Milk Of Magnesia 30 Ml Oral.Susp) 30 ml PO DAILY PRN PRN Reason: Constipation Nicotine (Nicotine 21 Mg Patch.Td24) 21 mg TRANSDERMA DAILY PRN PRN Reason: smoking cessation Nicotine Polacrilex (Nicotine Polacrilex 2 Mg Gum) 4 mg BUCCAL Q2H PRN PRN Reason: Nicotine Cravings Paliperidone Palmitate (Paliperidone Palmitate 234 Mg/1.5 Ml Syringe) 234 mg IM Q30D [facility] Last Admin: 06/21/21 12:06 Dose: 234 mg Documented by: Trazodone HCl (Trazodone Hcl 50 Mg Tablet) 50 mg PO BEDTIME PRN PRN Reason: Insomnia Allergies Allergies Allergy/AdvReac Type Severity Reaction Status Date / Time haloperidol [From HALDOL] Allergy Severe DYSTONIA Verified 04/19/21 06:28 ziprasidone [From GEODON] Allergy Severe DYSTONIA Verified 04/19/21 06:28 Assessment & Plan Assessment & Plan (1) Schizoaffective disorder, bipolar type: Status: Acute Code(s): F25.0 - Schizoaffective disorder, bipolar type Plan Continues with psychosis, aggressive agitation, lability of mood. Requiring restraint. Thorazine 50 mg tid with IM back up as needed Thorazine 100 mg bid prn with IM back up as needed. Initially, pt and I discussed an Abilify Maintena trial to address symptoms. From observation of pt's intensity of psychosis, agitation, lability, this does not appear to be the best agent to meet this level of symptom intensity. Will discuss with pt an Invega trial with transition to Sustenna during his hospitalization with initiation. 05/07/21 Invega 6 mg 05/08. Continue Thorazine prn. (pt required IM back up on 05/07/21) 05/08/21 Continue current plan of care. 05/09/21: Ct w plan per [facility] order 05/10/21: Ct Rx plan 05/11/21: Continue Invega titration. 05/12/21 Pt tolerating Invega. Will begin Sustenna on 05/13. 05/13/21 Sustanna given, tolerated. Support, educate, integrate into milieu for added support. 05/14/21 Tolerating Sustenna. Calmer, more focused today. Asking for help with legal issues, attempting to organize his responsibilities 05/15/21 Continue current plan. 05/16/21 Continue current plan 05/17/21 Continue current plan 05/18/21 Follow up with probation-pt agrees and signed JEANNETTE Second Sustenna injection 05/21. Tolerating with breakthrough sx with PO as well. 05/19/21 Team/Peers report evening/night agitation Depakote 500 mg ER HS 05/20/21 Continue current regime Scheduled Invega injection for 05/21 Continue to attempt alliance building, education, support 05/21/21 Continue current regimen, no changes to medication, will monitor for benefit on invega sustenna COKER. Still taking PO invega. Has not been taking PO depakote, so will not order a level. 05/22/21 Continue current regimen, pt is tolerating invega sustenna well. Not taking depakote. Appropriate on the unit. 05/23/21: No changes to above med plan. 05/24/21: No changes to above plan, continue PO invega until invega sustenna reaches steady state. Pt somewhat intrusive with high fiving staff but redirectable. 05/26/21: Continue current plan. [employer] application 05/27/21 Pt has been refusing Depakote at hs with resulting poor sleep. Will give Chlorpromazine IM if Depakote is refused. 05/28/21 Continue current plan Labs 06/01/20. 05/29/21 Continue with current plan 05/30/21 continue with current treatment plan 05/31/21 continue with current treatment plan 06/01/21 Discontinue Depakote-pt prefers Chlorpromazine at HS-50 mg as he reports it is more helpful with sleep quality assistance. 06/03/21: Education, support. [employer] application. 06/04/21: Increase Chlorpromazine to 75 mg HS to assist with mgt of lability. 06/05/21: Continue current regime 06/06 continue current medications 06/09/21: Continue current plan of care Support, Educate, Inform, encourage pt's interests. 06/11/21: More engaged in milieu today. Attentive to ADL's with team encouragement. Continue plan of care. 06/12/21: Continue current regime. Sustenna due 06/21/21. 06/13/21 - 06/14/21 No changes Continue with current treatment plan 06/15/21 Continue current plan of care Invega Sustenna injection due 06/21/21. 06/16/21 Continue current plan of care. 06/17/21 Continue current plan of care Increase Chlorpromazine to 100 mg HS Discussed tapering PO Invega most likely between second and third injection of COKER. Discussed with pt treating his mood. At this time he would like more time to assess effects of therapy and COKER. 06/18/21 Continue current plan. Offer support and structure 06/19/10 Sustenna Injection 06/21. 06/20/21 No changes to the above 06/21/21 No change 06/23/21- pt without SI/HI/VH/AH, no overt delusional content reported. overly familiar with staff/asking multiple request but polite and able to be redirected. 06/26/21- Processing discussion of 06/25/21. Elopement risk Continue current plan of care. I spent 40 minutes with the patient and/or on the patient floor today, greater than?50% of which was spent counseling/coordinating care. Patient educated on: therapeutic strategies Informed Consent: further education needed Reason for contiued inpatient stay Substantial Risk for: harm to self, harm to others, inability to function and rapid decompensation
[2021-06-26 18:20] VITALS: BP 117/75; PULSE 103; RESP 18; TEMP 37.1; O2SAT 98
[2021-06-26] MEDS: chlorproMAZINE HCl 100 MG TABLET PO (20:45)
[2021-06-27 06:00] VITALS: BP 114/68; PULSE 79; RESP 18; TEMP 37; O2SAT 97
[2021-06-27 18:00] VITALS: BP 122/71; PULSE 97; RESP 16; TEMP 36.1
[2021-06-27] MEDS: chlorproMAZINE HCl 100 MG TABLET PO (20:22)
--- NOTE | 2021-06-27 20:39 | P.PNPSI_ITS ---
Subjective Subjective Date of Service: 06/27/21 Reason For Visit: Schizophrenia Interim History: Patient seen at nurses' station. He is pleasant. Says he wants to order some drawing books from [employer]. Says he had permission to do so. He had ordered some already and was referred to primary team for this matter. Reports his mood is good today. No concerns for safety. Denies SI. He is taking medications. Review of Systems Review of Systems no changes Yes all other systems are reviewed and are negative Constitutional: Reports no additional constitutional complaints Genitourinary: Reports change in libido Musculoskeletal: Reports other (denies, s/p punching a wall with abrasions sustatined) Reports behavioral changes, Reports confusion and Reports memory loss Psychiatric: Reports abnormal sleep pattern, Reports anxiety, Reports behavioral changes, Reports change in libido, Reports confusion, Reports depression, Reports difficulty concentrating, Reports auditory hallucinations, Reports hopelessness, Reports irritability, Reports anhedonia, Reports memory loss, Reports mood swings, Reports paranoia, Reports visual hallucinations, Reports hallucinations, Reports homicidal ideation, Reports suicidal ideation (denies) and Reports other (aggression, agitation, violence precipitating restraint) Endocrine: Reports change in libido Mental Status Exam Mental Status Exam Narrative: Patient Appearance:?Appropriate Patient Orientation:?Person, Place, Time and Situation Level of Consciousness:?Alert Patient Behavior:?Talkative and Good Eye Contact, friendly Mood Description:? good Affect Description:?congruent Patient Cognition Impaired:?No Ability to Follow Directions:?Good Speech Pattern:?Spontaneous Speech Memory Description:?Episodic Impaired Hallucinations:?none Delusions:?no overt delusional content Thought Process:?Distracted and Rumination Thought Content:?no overt psychosis noted, Depressive Symptoms:?Increased Anxiety and Low Self Esteem Abnormal Motor Activity Signs and Symptoms:?Restlessness Judgement:?Poor Patient Appearance: Appropriate Patient Orientation: Person, Place, Time and Situation Level of Consciousness: Alert Patient Behavior: Guarded, Talkative, Distractible and Good Eye Contact Mood Description: Flat Affect Description: Flat Patient Cognition Impaired: Yes Ability to Follow Directions: Fair Speech Pattern: Spontaneous Speech and Cofabulation Memory Description: Remote Impaired, Fpc Impaired and Episodic Impaired Diagnostics Vital Signs (24Hr): Vital Signs - 24 hr 06/27/21 06:00 Temperature 98.6 F Pulse Rate 79 Respiratory Rate 18 Blood Pressure 114/68 Pulse Oximetry 97 BMI result Verdana 4 Body Mass Index Verdana 4 28.0 Verdana 4 Verdana 4 Labs Results: 06/01/21 07:51 06/01/21 07:51 Imaging Radiology Impressions: ITS Impressions Face X-Ray 04/21/21 15:29 IMPRESSION: No fracture seen. Orbit X-Ray 04/21/21 15:29 IMPRESSION: No fracture seen. Cervical Spine CT 04/24/21 22:24 IMPRESSION: No evidence of acute intracranial abnormalities. No evidence of acute maxillofacial fractures. However, evaluation of the inferior mandibular body is limited due to motion and although no definite fractures or surrounding soft tissue thickening/hematoma are identified, clinical correlation for pain/tenderness in the inferior mandible should be obtained as this is suboptimally assessed in this study. No acute cervical fractures or malalignment. Face CT 04/24/21 22:24 IMPRESSION: No evidence of acute intracranial abnormalities. No evidence of acute maxillofacial fractures. However, evaluation of the inferior mandibular body is limited due to motion and although no definite fractures or surrounding soft tissue thickening/hematoma are identified, clinical correlation for pain/tenderness in the inferior mandible should be obtained as this is suboptimally assessed in this study. No acute cervical fractures or malalignment. Head CT 04/24/21 22:24 IMPRESSION: No evidence of acute intracranial abnormalities. No evidence of acute maxillofacial fractures. However, evaluation of the inferior mandibular body is limited due to motion and although no definite fractures or surrounding soft tissue thickening/hematoma are identified, clinical correlation for pain/tenderness in the inferior mandible should be obtained as this is suboptimally assessed in this study. No acute cervical fractures or malalignment. Toe X-Ray 06/22/21 19:00 IMPRESSION: No appreciable phalangeal fractures of the right toes. Medications Medications Current Medications Acetaminophen (Acetaminophen 325 Mg Tablet) 650 mg PO Q6H PRN PRN Reason: Headache/Pain Mild Scale (1-3) Last Admin: 06/23/21 19:51 Dose: 650 mg Documented by: Al Hydroxide/Mg Hydroxide (Magnesium Hydrox/Alum Hydrox 30 Ml Oral.Susp) 30 ml PO Q6H PRN PRN Reason: Heartburn/Nausea Last Admin: 05/27/21 00:13 Dose: 30 ml Documented by: Benztropine Mesylate (Benztropine Mesylate 1 Mg Tablet) 1 mg PO TID PRN PRN Reason: Extrapyramidal Effects Chlorpromazine HCl (Chlorpromazine Hcl 100 Mg Tablet) 100 mg PO BID PRN PRN Reason: psychotic agitation Last Admin: 06/03/21 20:44 Dose: 100 mg Documented by: Chlorpromazine HCl (Chlorpromazine Hcl 100 Mg Tablet) 100 mg PO BEDTIME MARGAUX Last Admin: 06/27/21 20:37 Dose: 100 mg Documented by: Diphenhydramine HCl (Diphenhydramine Hcl 25 Mg Tablet) 50 mg PO Q4H PRN PRN Reason: agitation Last Admin: 06/22/21 23:53 Dose: 50 mg Documented by: Hydroxyzine HCl (Hydroxyzine Hcl 25 Mg Tablet) 25 mg PO QID PRN PRN Reason: Anxiety Last Admin: 05/21/21 21:14 Dose: 25 mg Documented by: Ibuprofen (Ibuprofen 600 Mg Tablet) 600 mg PO Q4H PRN PRN Reason: Pain, Moderate (Pain Scale 4-6 Last Admin: 05/22/21 07:13 Dose: 600 mg Documented by: Lidocaine (Lidocaine 4 % Patch Adh..Patch) 1 patch TRANSDERMA DAILY PRN; Protocol PRN Reason: cervical pain Last Admin: 06/20/21 07:24 Dose: 1 patch Documented by: Magnesium Hydroxide (Milk Of Magnesia 30 Ml Oral.Susp) 30 ml PO DAILY PRN PRN Reason: Constipation Nicotine (Nicotine 21 Mg Patch.Td24) 21 mg TRANSDERMA DAILY PRN PRN Reason: smoking cessation Nicotine Polacrilex (Nicotine Polacrilex 2 Mg Gum) 4 mg BUCCAL Q2H PRN PRN Reason: Nicotine Cravings Paliperidone Palmitate (Paliperidone Palmitate 234 Mg/1.5 Ml Syringe) 234 mg IM Q30D [facility] Last Admin: 06/21/21 12:06 Dose: 234 mg Documented by: Trazodone HCl (Trazodone Hcl 50 Mg Tablet) 50 mg PO BEDTIME PRN PRN Reason: Insomnia Allergies Allergies Allergy/AdvReac Type Severity Reaction Status Date / Time haloperidol [From HALDOL] Allergy Severe DYSTONIA Verified 04/19/21 06:28 ziprasidone [From GEODON] Allergy Severe DYSTONIA Verified 04/19/21 06:28 Assessment & Plan Assessment & Plan (1) Schizoaffective disorder, bipolar type: Status: Acute Code(s): F25.0 - Schizoaffective disorder, bipolar type Plan Continues with psychosis, aggressive agitation, lability of mood. Requiring restraint. Thorazine 50 mg tid with IM back up as needed Thorazine 100 mg bid prn with IM back up as needed. Initially, pt and I discussed an Abilify Maintena trial to address symptoms. From observation of pt's intensity of psychosis, agitation, lability, this does not appear to be the best agent to meet this level of symptom intensity. Will discuss with pt an Invega trial with transition to Sustenna during his hospitalization with initiation. 05/07/21 Invega 6 mg 05/08. Continue Thorazine prn. (pt required IM back up on 05/07/21) 05/08/21 Continue current plan of care. 05/09/21: Ct w plan per [facility] order 05/10/21: Ct Rx plan 05/11/21: Continue Invega titration. 05/12/21 Pt tolerating Invega. Will begin Sustenna on 05/13. 05/13/21 Sustanna given, tolerated. Support, educate, integrate into milieu for added support. 05/14/21 Tolerating Sustenna. Calmer, more focused today. Asking for help with legal issues, attempting to or ganize his responsibilities 05/15/21 Continue current plan. 05/16/21 Continue current plan 05/17/21 Continue current plan 05/18/21 Follow up with probation-pt agrees and signed JEANNETTE Second Sustenna injection 05/21. Tolerating with breakthrough sx with PO as well. 05/19/21 Team/Peers report evening/night agitation Depakote 500 mg ER HS 05/20/21 Continue current regime Scheduled Invega injection for 05/21 Continue to attempt alliance building, education, support 05/21/21 Continue current regimen, no changes to medication, will monitor for benefit on invega sustenna COKER. Still taking PO invega. Has not been taking PO depakote, so will not order a level. 05/22/21 Continue current regimen, pt is tolerating invega sustenna well. Not taking depakote. Appropriate on the unit. 05/23/21: No changes to above med plan. 05/24/21: No changes to above plan, continue PO invega until invega sustenna reaches steady state. Pt somewhat intrusive with high fiving staff but redirectable. 05/26/21: Continue current plan. [facility] application 05/27/21 Pt has been refusing Depakote at hs with resulting poor sleep. Will give Chlorpromazine IM if Depakote is refused. 05/28/21 Continue current plan Labs 06/01/20. 05/29/21 Continue with current plan 05/30/21 continue with current treatment plan 05/31/21 continue with current treatment plan 06/01/21 Discontinue Depakote-pt prefers Chlorpromazine at HS-50 mg as he reports it is more helpful with sleep quality assistance. 06/03/21: Education, support. [employer] application. 06/04/21: Increase Chlorpromazine to 75 mg HS to assist with mgt of lability. 06/05/21: Continue current regime 06/06 continue current medications 06/09/21: Continue current plan of care Support, Educate, Inform, encourage pt's interests. 06/11/21: More engaged in milieu today. Attentive to ADL's with team encouragement. Continue plan of care. 06/12/21: Continue current regime. Sustenna due 06/21/21. 06/13/21 - 06/14/21 No changes Continue with current treatment plan 06/15/21 Continue current plan of care Invega Sustenna injection due 06/21/21. 06/16/21 Continue current plan of care. 06/17/21 Continue current plan of care Increase Chlorpromazine to 100 mg HS Discussed tapering PO Invega most likely between second and third injection of COKER. Discussed with pt treating his mood. At this time he would like more time to assess effects of therapy and COKER. 06/18/21 Continue current plan. Offer support and structure 06/19/10 Sustenna Injection 06/21. 06/20/21 No changes to the above 06/21/21 No change 06/23/21- pt without SI/HI/VH/AH, no overt delusional content reported. overly familiar with staff/asking multiple request but polite and able to be redirected. 06/26/21- Processing discussion of 06/25/21. Elopement risk Continue current plan of care. I spent minutes with the patient and/or on the patient floor today, greater than?50% of which was spent counseling/coordinating care. Reason for contiued inpatient stay Substantial Risk for: rapid decompensation
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
[2021-06-28 06:00] VITALS: BP 112/73; PULSE 79; TEMP 36.8; O2SAT 100
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
[2021-06-28 18:00] VITALS: BP 128/80; PULSE 98; RESP 18; TEMP 36.9; O2SAT 96
[2021-06-28] MEDS: chlorproMAZINE HCl 100 MG TABLET PO ×2 (20:38)
[2021-06-29 06:00] VITALS: PULSE 103; TEMP 36.7
--- NOTE | 2021-06-29 17:11 | P.PNPSI_ITS ---
Subjective Subjective Date of Service: 06/29/21 Reason For Visit: Schizophrenia Subjective Notes: Section 8 Interim History: Mathew denies medication side effects, reports sleep and appetite are intact and the times I feel angry are not as bad or as often . Ongoing discussion/educational attempts regarding illness/treatment. Mathew asks how much of his entire life we anticipate he will spend in hospital. Discussed progress of medicines, improved outcomes of COKER medications (Invjean is his first COKER he reports), importance of alliances with providers and allowing treatment, accurately reporting what is happening with him/symptoms and following a treatment plan. Discussed updating diagnostics this week after second injection for monitoring and he agrees, stating current regime is much different from previous regimes. Discussed respite. 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 Review of rationale and estimated treatment outcomes. Medication Compliance: Yes Side effects from medications: No Attending Groups: Intermittent Review of Systems Acute medical concerns: No Medical Review of Systems: unchanged Review of Systems Reports behavioral changes Psychiatric: Reports anxiety, Reports behavioral changes, Reports difficulty concentrating, Reports auditory hallucinations, Reports irritability, Reports anhedonia, Reports mood swings, Reports paranoia and Reports hallucinations Mental Status Exam Mental Status Exam Patient Appearance: Disheveled Patient Orientation: Person, Place, Time and Situation Level of Consciousness: Alert Patient Behavior: Talkative and Good Eye Contact Mood Description: Constricted Affect Description: Constricted Patient Cognition Impaired: Yes Ability to Follow Directions: Good Speech Pattern: Spontaneous Speech Memory Description: Remote Impaired and Episodic Impaired Hallucinations: Auditory Delusions: Paranoid Ideation Perceptual Disturbances: Depersonalization and Derealization Thought Process: Goal Oriented Thought Content: positive for Flight of Ideas, positive for Circumstantial, positive for Goal Oriented, positive for Tangential and positive for Suicidal Ideation (denies) Depressive Symptoms: Diff. Making Decisions Abnormal Motor Activity Signs and Symptoms: Restlessness Judgement: Poor Diagnostics Vital Signs (24Hr): Vital Signs - 24 hr 06/28/21 18:00 06/29/21 06:00 Temperature 98.4 F 98.1 F Pulse Rate 98 103 H Respiratory Rate 18 Blood Pressure 128/80 Pulse Oximetry 96 BMI result [place] 4 Body Mass Index [place] 4 28.0 Verdana 4 Verdana 4 Labs Results: 06/01/21 07:51 06/01/21 07:51 Imaging Radiology Impressions: ITS Impressions Face X-Ray 04/21/21 15:29 IMPRESSION: No fracture seen. Orbit X-Ray 04/21/21 15:29 IMPRESSION: No fracture seen. Cervical Spine CT 04/24/21 22:24 IMPRESSION: No evidence of acute intracranial abnormalities. No evidence of acute maxillofacial fractures. However, evaluation of the inferior mandibular body is limited due to motion and although no definite fractures or surrounding soft tissue thickening/hematoma are identified, clinical correlation for pain/tenderness in the inferior mandible should be obtained as this is suboptimally assessed in this study. No acute cervical fractures or malalignment. Face CT 04/24/21 22:24 IMPRESSION: No evidence of acute intracranial abnormalities. No evidence of acute maxillofacial fractures. However, evaluation of the inferior mandibular body is limited due to motion and although no definite fractures or surrounding soft tissue thickening/hematoma are identified, clinical correlation for pain/tenderness in the inferior mandible should be obtained as this is suboptimally assessed in this study. No acute cervical fractures or malalignment. Head CT 04/24/21 22:24 IMPRESSION: No evidence of acute intracranial abnormalities. No evidence of acute maxillofacial fractures. However, evaluation of the inferior mandibular body is limited due to motion and although no definite fractures or surrounding soft tissue thickening/hematoma are identified, clinical correlation for pain/tenderness in the inferior mandible should be obtained as this is suboptimally assessed in this study. No acute cervical fractures or malalignment. Toe X-Ray 06/22/21 19:00 IMPRESSION: No appreciable phalangeal fractures of the right toes. Medications Medications Current Medications Acetaminophen (Acetaminophen 325 Mg Tablet) 650 mg PO Q6H PRN PRN Reason: Headache/Pain Mild Scale (1-3) Last Admin: 06/23/21 19:51 Dose: 650 mg Documented by: Al Hydroxide/Mg Hydroxide (Magnesium Hydrox/Alum Hydrox 30 Ml Oral.Susp) 30 ml PO Q6H PRN PRN Reason: Heartburn/Nausea Last Admin: 05/27/21 00:13 Dose: 30 ml Documented by: Benztropine Mesylate (Benztropine Mesylate 1 Mg Tablet) 1 mg PO TID PRN PRN Reason: Extrapyramidal Effects Chlorpromazine HCl (Chlorpromazine Hcl 100 Mg Tablet) 100 mg PO BID PRN PRN Reason: psychotic agitation Last Admin: 06/03/21 20:44 Dose: 100 mg Documented by: Chlorpromazine HCl (Chlorpromazine Hcl 100 Mg Tablet) 100 mg PO BEDTIME [facility] Last Admin: 06/29/21 15:38 Dose: Not Given Documented by: Diphenhydramine HCl (Diphenhydramine Hcl 25 Mg Tablet) 50 mg PO Q4H PRN PRN Reason: agitation Last Admin: 06/22/21 23:53 Dose: 50 mg Documented by: Hydroxyzine HCl (Hydroxyzine Hcl 25 Mg Tablet) 25 mg PO QID PRN PRN Reason: Anxiety Last Admin: 05/21/21 21:14 Dose: 25 mg Documented by: Ibuprofen (Ibuprofen 600 Mg Tablet) 600 mg PO Q4H PRN PRN Reason: Pain, Moderate (Pain Scale 4-6 Last Admin: 05/22/21 07:13 Dose: 600 mg Documented by: Lidocaine (Lidocaine 4 % Patch Adh..Patch) 1 patch TRANSDERMA DAILY PRN; Protocol PRN Reason: cervical pain Last Admin: 06/20/21 07:24 Dose: 1 patch Documented by: Magnesium Hydroxide (Milk Of Magnesia 30 Ml Oral.Susp) 30 ml PO DAILY PRN PRN Reason: Constipation Nicotine (Nicotine 21 Mg Patch.Td24) 21 mg TRANSDERMA DAILY PRN PRN Reason: smoking cessation Nicotine Polacrilex (Nicotine Polacrilex 2 Mg Gum) 4 mg BUCCAL Q2H PRN PRN Reason: Nicotine Cravings Paliperidone Palmitate (Paliperidone Palmitate 234 Mg/1.5 Ml Syringe) 234 mg IM Q30D [facility] Last Admin: 06/21/21 12:06 Dose: 234 mg Documented by: Trazodone HCl (Trazodone Hcl 50 Mg Tablet) 50 mg PO BEDTIME PRN PRN Reason: Insomnia Allergies Allergies Allergy/AdvReac Type Severity Reaction Status Date / Time haloperidol [From HALDOL] Allergy Severe DYSTONIA Verified 04/19/21 06:28 ziprasidone [From GEODON] Allergy Severe DYSTONIA Verified 04/19/21 06:28 Assessment & Plan Assessment & Plan (1) Schizoaffective disorder, bipolar type: Status: Acute Code(s): F25.0 - Schizoaffective disorder, bipolar type Plan Continues with psychosis, aggressive agitation, lability of mood. Requiring restraint. Thorazine 50 mg tid with IM back up as needed Thorazine 100 mg bid prn with IM back up as needed. Initially, pt and I discussed an Abilify Maintena trial to address symptoms. From observation of pt's intensity of psychosis, agitation, lability, this does not appear to be the best agent to meet this level of symptom intensity. Will discuss with pt an Invega trial with transition to Sustenna during his hospitalization with initiation. 05/07/21 Invega 6 mg 05/08. Continue Thorazine prn. (pt required IM back up on 05/07/21) 05/08/21 Continue current plan of care. 05/09/21: Ct w plan per [facility] order 05/10/21: Ct Rx plan 05/11/21: Continue Invega titration. 05/12/21 Pt tolerating Invega. Will begin Sustenna on 05/13. 05/13/21 Sustanna given, tolerated. Support, educate, integrate into milieu for added support. 05/14/21 Tolerating Sustenna. Calmer, more focused today. Asking for help with legal issues, attempting to organize his responsibilities 05/15/21 Continue current plan. 05/16/21 Continue current plan 05/17/21 Continue current plan 05/18/21 Follow up with probation-pt agrees and signed JEANNETTE Second Sustenna injection 05/21. Tolerating with breakthrough sx with PO as well. 05/19/21 Team/Peers report evening/night agitation Depakote 500 mg ER HS 05/20/21 Continue current regime Scheduled Invega injection for 05/21 Continue to attempt alliance building, education, support 05/21/21 Continue current regimen, no changes to medication, will monitor for benefit on invega sustenna COKER. Still taking PO invega. Has not been taking PO depakote, so will not order a level. 05/22/21 Continue current regimen, pt is tolerating invega sustenna well. Not taking depakote. Appropriate on the unit. 05/23/21: No changes to above med plan. 05/24/21: No changes to above plan, continue PO invega until invega sustenna reaches steady state. Pt somewhat intrusive with high fiving staff but redirectable. 05/26/21: Continue current plan. [facility] application 05/27/21 Pt has been refusing Depakote at hs with resulting poor sleep. Will give Chlorpromazine IM if Depakote is refused. 05/28/21 Continue current plan Labs 06/01/20. 05/29/21 Continue with current plan 05/30/21 continue with current treatment plan 05/31/21 continue with current treatment plan 06/01/21 Discontinue Depakote-pt prefers Chlorpromazine at HS-50 mg as he reports it is more helpful with sleep quality assistance. 06/03/21: Education, support. [facility] application. 06/04/21: Increase Chlorpromazine to 75 mg HS to assist with mgt of lability. 06/05/21: Continue current regime 06/06 continue current medications 06/09/21: Continue current plan of care Support, Educate, Inform, encourage pt's interests. 06/11/21: More engaged in milieu today. Attentive to ADL's with team encouragement. Continue plan of care. 06/12/21: Continue current regime. Sustenna due 06/21/21. 06/13/21 - 06/14/21 No changes Continue with current treatment plan 06/15/21 Continue current plan of care Invega Sustenna injection due 06/21/21. 06/16/21 Continue current plan of care. 06/17/21 Continue current plan of care Increase Chlorpromazine to 100 mg HS Discussed tapering PO Invega most likely between second and third injection of COKER. Discussed with pt treating his mood. At this time he would like more time to a ssess effects of therapy and COKER. 06/18/21 Continue current plan. Offer support and structure 06/19/10 Sustenna Injection 06/21. 06/20/21 No changes to the above 06/21/21 No change 06/23/21- pt without SI/HI/VH/AH, no overt delusional content reported. overly familiar with staff/asking multiple request but polite and able to be redirected. 06/26/21- Processing discussion of 06/25/21. Elopement risk Continue current plan of care. 06/29/21- Denies SE of COKER given 06/21. Continues to decline psychopharmacology intervention for mood symptoms-prefers to talk it out . Update diagnostics- EKG, CBC, CMP, TSH, Lipids, A1c, TSH, B12,Folate Pt has expressed interest in leaning to speak and write [place]-given resources so he may explore this interest. Support/Educate LT Plan: Katerin I spent 40 minutes with the patient and/or on the patient floor today, greater than?50% of which was spent counseling/coordinating care. Patient educated on: diagnosis, medication risk/benefits, therapeutic strategies and medical condition Informed Consent: understands and further education needed Reason for contiued inpatient stay Substantial Risk for: harm to self, harm to others, inability to function and rapid decompensation
[2021-06-29 18:00] VITALS: BP 119/78; PULSE 84; RESP 16; TEMP 36.7; O2SAT 96
[2021-06-29] MEDS: chlorproMAZINE HCl 100 MG TABLET PO (21:04)
[2021-06-30 05:42] VITALS: BP 136/88; PULSE 93; RESP 17; TEMP 36.6; O2SAT 100
--- NOTE | 2021-06-30 11:23 | P.PNPSI_ITS ---
Subjective Subjective Date of Service: 06/30/21 Reason For Visit: Schizophrenia Subjective Notes: Section 8 Interim History: Pt more withdrawn, in his bed. Less talkative than previous week. He reports he is healing his heart. He expresses frustration about being here in unit and going to [facility] but more accepting of this plan. He reports sleeping and eating well. No side effects reported with medications. Per nursing, poor boundaries with female pts, needs to be redirected. No aggression towards self or others. Medication Compliance: Yes Side effects from medications: No Review of Systems Review of Systems no changes Yes all other systems are reviewed and are negative Constitutional: Reports no additional constitutional complaints Genitourinary: Reports change in libido Musculoskeletal: Reports other (denies, s/p punching a wall with abrasions sustatined) Reports behavioral changes, Reports confusion and Reports memory loss Psychiatric: Reports abnormal sleep pattern, Reports anxiety, Reports behavioral changes, Reports change in libido, Reports confusion, Reports depression, Reports difficulty concentrating, Reports auditory hallucinations, Reports hopelessness, Reports irritability, Reports anhedonia, Reports memory loss, Reports mood swings, Reports paranoia, Reports visual hallucinations, Reports hallucinations, Reports homicidal ideation, Reports suicidal ideation (denies) and Reports other (aggression, agitation, violence precipitating restraint) Endocrine: Reports change in libido Mental Status Exam Mental Status Exam Narrative: Patient Appearance:?Appropriate Patient Orientation:?Person, Place, Time and Situation Level of Consciousness:?Alert Patient Behavior:?Talkative and Good Eye Contact, friendly Mood Description:? good Affect Description:?congruent Patient Cognition Impaired:?No Ability to Follow Directions:?Good Speech Pattern:?Spontaneous Speech Memory Description:?Episodic Impaired Hallucinations:?none Delusions:?no overt delusional content Thought Process:?Distracted and Rumination Thought Content:?no overt psychosis noted, Depressive Symptoms:?Increased Anxiety and Low Self Esteem Abnormal Motor Activity Signs and Symptoms:?Restlessness Judgement:?Poor Diagnostics Vital Signs (24Hr): Vital Signs - 24 hr 06/29/21 18:00 06/30/21 05:42 Temperature 98.0 F 97.9 F Pulse Rate 84 93 Respiratory Rate 16 17 Blood Pressure 119/78 136/88 Pulse Oximetry 96 100 BMI result Verdana 4 Body Mass Index Verdana 4 28.0 Verdana 4 Verdana 4 Labs Results: 06/01/21 07:51 06/01/21 07:51 Imaging Radiology Impressions: ITS Impressions Face X-Ray 04/21/21 15:29 IMPRESSION: No fracture seen. Orbit X-Ray 04/21/21 15:29 IMPRESSION: No fracture seen. Cervical Spine CT 04/24/21 22:24 IMPRESSION: No evidence of acute intracranial abnormalities. No evidence of acute maxillofacial fractures. However, evaluation of the inferior mandibular body is limited due to motion and although no definite fractures or surrounding soft tissue thickening/hematoma are identified, clinical correlation for pain/tenderness in the inferior mandible should be obtained as this is suboptimally assessed in this study. No acute cervical fractures or malalignment. Face CT 04/24/21 22:24 IMPRESSION: No evidence of acute intracranial abnormalities. No evidence of acute maxillofacial fractures. However, evaluation of the inferior mandibular body is limited due to motion and although no definite fractures or surrounding soft tissue thickening/hematoma are identified, clinical correlation for pain/tenderness in the inferior mandible should be obtained as this is suboptimally assessed in this study. No acute cervical fractures or malalignment. Head CT 04/24/21 22:24 IMPRESSION: No evidence of acute intracranial abnormalities. No evidence of acute maxillofacial fractures. However, evaluation of the inferior mandibular body is limited due to motion and although no definite fractures or surrounding soft tissue thickening/hematoma are identified, clinical correlation for pain/tenderness in the inferior mandible should be obtained as this is suboptimally assessed in this study. No acute cervical fractures or malalignment. Toe X-Ray 06/22/21 19:00 IMPRESSION: No appreciable phalangeal fractures of the right toes. Medications Medications Current Medications Acetaminophen (Acetaminophen 325 Mg Tablet) 650 mg PO Q6H PRN PRN Reason: Headache/Pain Mild Scale (1-3) Last Admin: 06/23/21 19:51 Dose: 650 mg Documented by: Al Hydroxide/Mg Hydroxide (Magnesium Hydrox/Alum Hydrox 30 Ml Oral.Susp) 30 ml PO Q6H PRN PRN Reason: Heartburn/Nausea Last Admin: 05/27/21 00:13 Dose: 30 ml Documented by: Benztropine Mesylate (Benztropine Mesylate 1 Mg Tablet) 1 mg PO TID PRN PRN Reason: Extrapyramidal Effects Chlorpromazine HCl (Chlorpromazine Hcl 100 Mg Tablet) 100 mg PO BID PRN PRN Reason: psychotic agitation Last Admin: 06/29/21 21:04 Dose: 100 mg Documented by: Chlorpromazine HCl (Chlorpromazine Hcl 100 Mg Tablet) 100 mg PO BEDTIME [facility] Last Admin: 06/29/21 15:38 Dose: Not Given Documented by: Diphenhydramine HCl (Diphenhydramine Hcl 25 Mg Tablet) 50 mg PO Q4H PRN PRN Reason: agitation Last Admin: 06/22/21 23:53 Dose: 50 mg Documented by: Hydroxyzine HCl (Hydroxyzine Hcl 25 Mg Tablet) 25 mg PO QID PRN PRN Reason: Anxiety Last Admin: 05/21/21 21:14 Dose: 25 mg Documented by: Ibuprofen (Ibuprofen 600 Mg Tablet) 600 mg PO Q4H PRN PRN Reason: Pain, Moderate (Pain Scale 4-6 Last Admin: 05/22/21 07:13 Dose: 600 mg Documented by: Lidocaine (Lidocaine 4 % Patch Adh..Patch) 1 patch TRANSDERMA DAILY PRN; Protocol PRN Reason: cervical pain Last Admin: 06/20/21 07:24 Dose: 1 patch Documented by: Magnesium Hydroxide (Milk Of Magnesia 30 Ml Oral.Susp) 30 ml PO DAILY PRN PRN Reason: Constipation Nicotine (Nicotine 21 Mg Patch.Td24) 21 mg TRANSDERMA DAILY PRN PRN Reason: smoking cessation Nicotine Polacrilex (Nicotine Polacrilex 2 Mg Gum) 4 mg BUCCAL Q2H PRN PRN Reason: Nicotine Cravings Paliperidone Palmitate (Paliperidone Palmitate 234 Mg/1.5 Ml Syringe) 234 mg IM Q30D [facility] Last Admin: 06/21/21 12:06 Dose: 234 mg Documented by: Trazodone HCl (Trazodone Hcl 50 Mg Tablet) 50 mg PO BEDTIME PRN PRN Reason: Insomnia Allergies Allergies Allergy/AdvReac Type Severity Reaction Status Date / Time haloperidol [From HALDOL] Allergy Severe DYSTONIA Verified 04/19/21 06:28 ziprasidone [From GEODON] Allergy Severe DYSTONIA Verified 04/19/21 06:28 Assessment & Plan Assessment & Plan (1) Schizoaffective disorder, bipolar type: Status: Acute Code(s): F25.0 - Schizoaffective disorder, bipolar type Plan 05/07/21 Invega 6 mg 05/08. Continue Thorazine prn. (pt required IM back up on 05/07/21) 05/08/21 Continue current plan of care. 05/09/21: Ct w plan per New order 05/10/21: Ct Rx plan 05/11/21: Continue Invega titration. 05/12/21 Pt tolerating Invega. Will begin Sustenna on 05/13. 05/13/21 Sustanna given, tolerated. Support, educate, integrate into milieu for added support. 05/14/21 Tolerating Sustenna. Calmer, more focused today. Asking for help with legal issues, attempting to organize his responsibilities 05/15/21 Continue current plan. 05/16/21 Continue current plan 05/17/21 Continue current plan 05/18/21 Follow up with probation-pt agrees and signed JEANNETTE Second Sustenna injection 05/21. Tolerating with breakthrough sx with PO as well. 05/19/21 Team/Peers report evening/night agitation Depakote 500 mg ER HS 05/20/21 Continue current regime Scheduled Invega injection for 05/21 Continue to attempt alliance building, education, support 05/21/21 Continue current regimen, no changes to medication, will monitor for benefit on invega sustenna COKER. Still taking PO invega. Has not been taking PO depakote, so will not order a level. 05/22/21 Continue current regimen, pt is tolerating invega sustenna well. Not taking depakote. Appropriate on the unit. 05/23/21: No changes to above med plan. 05/24/21: No changes to above plan, continue PO invega until invega sustenna reaches steady state. Pt somewhat intrusive with high fiving staff but redirectable. 05/26/21: Continue current plan. [facility] application 05/27/21 Pt has been refusing Depakote at hs with resulting poor sleep. Will give Chlorpromazine IM if Depakote is refused. 05/28/21 Continue current plan Labs 06/01/20. 05/29/21 Continue with current plan 05/30/21 continue with current treatment plan 05/31/21 continue with current treatment plan 06/01/21 Discontinue Depakote-pt prefers Chlorpromazine at HS-50 mg as he reports it is more helpful with sleep quality assistance. 06/03/21: Education, support. [facility] application. 06/04/21: Increase Chlorpromazine to 75 mg HS to assist with mgt of lability. 06/05/21: Continue current regime 06/06 continue current medications 06/09/21: Continue current plan of care Support, Educate, Inform, encourage pt's interests. 06/11/21: More engaged in milieu today. Attentive to ADL's with team encouragement. Continue plan of care. 06/12/21: Continue current regime. Sustenna due 06/21/21. 06/13/21 - 06/14/21 No changes Continue with current treatment plan 06/15/21 Continue current plan of care Invega Sustenna injection due 06/21/21. 06/16/21 Continue current plan of care. 06/17/21 Continue current plan of care Increase Chlorpromazine to 100 mg HS Discussed tapering PO Invega most likely between second and third injection of COKER. Discussed with pt treating his mood. At this time he would like more time to assess effects of therapy and COKER. 06/18/21 Continue current plan. Offer support and structure 06/19/10 Sustenna Injection 06/21. 06/20/21 No changes to the above 06/21/21 No change 06/23/21- pt without SI/HI/VH/AH, no overt delusional content reported. overly familiar with staff/asking multiple request but polite and able to be redirected. 06/26/21- Processing discussion of 06/25/21. Elopement risk Continue current plan of care. 06/29/21- Denies SE of COKER given 06/21. Continues to decline psychopharmacology intervention for mood symptoms-prefers to talk it out . Update diagnostics- EKG, CBC, CMP, TSH, Lipids, A1c, TSH, B12,Folate Pt has expressed interest in leaning to speak and write Icelandic-given resources so he may explore this interest. Support/Educate LT Plan: [facility] 06/30/21: continue current treatment plan. pt stable. I spent minutes with the patient and/or on the patient floor today, greater than?50% of which was spent counseling/coordinating care. Reason for contiued inpatient stay Substantial Risk for: harm to others and inability to function
[2021-06-30 19:50] VITALS: BP 120/83; PULSE 104; TEMP 36.8
[2021-06-30] MEDS: chlorproMAZINE HCl 100 MG TABLET PO (22:17)
--- NOTE | 2021-07-01 04:07 | PC.NURSE ---
Pt was awake at 0300, looking for a snack. Informed him that he was on a fasting due to bloodwork in the am. He said he was hungry and wanted to eat something. Pt was then told that if he was refusing to fast until morning we could get him something to eat. Pt was irate about not being told that he had to fast for the morning bloodwork and went back and forth with this nurse about the issue. Pt engaged with several other members of staff regarding this issue. Pt was informed he could eat but by doing that he could not be fasting for the labs this morning. All staff tried to defuse the situation. Pt was given sunflower butter and jelly with bread to make a sandwich at his request, however he has not eaten it as of yet, [id number].
[2021-07-01 08:39] LABS: MANUAL DIFF FLAG NO
[2021-07-01 08:45] LABS: Basophils Percent Auto 0.3 % (0-2); Eosinophils Absolute Auto 0.1 X10*3/uL (0.0-0.4); Eosinophils Percent Auto 0.9 % (0-4); Hematocrit 46.6 % (42.0-52.0); Hemoglobin 15.4 g/dl (14.0-18.0); Imm Gran Abs Auto 0.05 X10*3/uL (0.00-0.03); Imm Gran Pct Auto 0.6 % (0.0-0.4); Lymphocytes Absolute Auto 1.4 X10*3/uL (1.2-4.9); Lymphocytes Percent Auto 18.5 % (20-40); Mean Corpuscular Hemoglobin 26.7 pg (27.0-33.0); Mean Corpuscular Volume 80.9 fL (80.0-98.0); Mean Platelet Volume 9.8 fL (9.4-12.4); Monocytes Absolute Auto 0.5 X10*3/uL (0.1-1.2); Monocytes Percent Auto 6.4 % (2-11); Neutrophils Absolute Auto 5.7 x10*3/uL (2.0-8.3); Neutrophils Percent Auto 73.3 % (45-73); Platelet Count 177 X10*3/uL (160-400); Red Blood Count 5.76 X10*6/uL (4.60-5.80); Red Cell Distribution Width 13.1 % (11.0-16.0); White Blood Count 7.8 X10*3/uL (4.8-10.8)
--- NOTE | 2021-07-01 09:00 | ECG_ITS ---
Test Reason : check QTC Blood Pressure : / mmHG Vent. Rate : 087 BPM Atrial Rate : 087 BPM P-R Int : 158 ms QRS Dur : 104 ms QT Int : 356 ms P-R-T Axes : 060 -40 022 degrees QTc Int : 428 ms Normal sinus rhythm Left axis deviation Incomplete right bundle branch block Minimal voltage criteria for LVH, may be normal variant ( [place] product ) Abnormal ECG When compared with ECG of 14-MAY-2021 10:14, No significant change was found Referred By: Cheryl Alvarado Electronically Signed By:CAMPBELL REY
[2021-07-01 09:11] LABS: Estimated Average Glucose 103 mg/dL; Hemoglobin A1c % 5.2 %
[2021-07-01 09:42] LABS: Alanine Aminotransferase 24 U/L (0-40); Albumin Level 4.3 g/dL (3.5-5.0); Alkaline Phosphatase 51 U/L (39-117); Anion Gap 11 (12-20); Aspartate Amino Transferase 28 U/L (5-37); Bilirubin Total 1.1 mg/dL (0.0-1.0); Blood Urea Nitrogen 17 mg/dL (9-16); Calcium 9.5 mg/dL (8.4-10.2); Carbon Dioxide 26 mmol/L (22-29); Chloride 107 mmol/L (96-108); Cholesterol 165 mg/dL; Creatinine Clr Calc Pharmacy 91.1; Estimated Glomerular Filt Rate > 60; Glucose Random 83 mg/dL (60-115); HDL Cholesterol 49 mg/dL; LDL Cholesterol Calculated 106 mg/dl; Potassium 4.2 mmol/L (3.3-5.1); Sodium 140 mmol/L (135-145); Total Protein 6.6 g/dL (6.5-8.0); Triglycerides 52 mg/dL
[2021-07-01 10:04] LABS: Thyroid Stimulating Hormone 1.28 uIU/mL (0.32-4.0)
[2021-07-01 10:13] LABS: Folate 18.2 ng/mL (> or = 4.0); Vitamin B12 412 pg/mL (200-900)
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
[2021-07-01 18:50] VITALS: BP 123/73; PULSE 84; RESP 16; TEMP 36.7; O2SAT 100
[2021-07-01] MEDS: chlorproMAZINE HCl 100 MG TABLET PO (21:51)
--- NOTE | 2021-07-02 17:12 | P.PNPSI_ITS ---
Subjective Subjective Date of Service: 07/02/21 Reason For Visit: Schizophrenia Subjective Notes: Section 8 Interim History: Isolative in his room-met with pt who reviewed that his meeting with his utility locate technician was not as hopeful as I wanted . I think I will need to go to [facility]. Expressed concern and angst regarding upcoming court date and pending charges- concern he will be sent to [facility] for his charges. Discussed, offered support, treatment planning. Pt, per report had made complaints of med SE on 06/30. Reviewed with pt who denies at this time. Review of options on court order, including mood options-pt again mentioned Depakote-reviewed that we had offered per his request but MAR showed to Margie Jerri LUND that pt had never taken (over holiday weeks). Oh, I took it, but in my mind, not by swallowing it. Medication Compliance: Yes Side effects from medications: No (denies) Attending Groups: Intermittent Review of Systems Acute medical concerns: No Medical Review of Systems: unchanged Review of Systems Reports behavioral changes Psychiatric: Reports behavioral changes, Reports auditory hallucinations, Reports mood swings, Reports paranoia, Reports visual hallucinations and Reports hallucinations Mental Status Exam Mental Status Exam Patient Appearance: Unkempt Patient Orientation: Person, Place, Time and Situation Level of Consciousness: Alert Patient Behavior: Talkative and Cooperative Mood Description: Withdrawn Affect Description: Withdrawn Patient Cognition Impaired: No Ability to Follow Directions: Fair Speech Pattern: Spontaneous Speech Memory Description: Remote Impaired Hallucinations: Auditory and Visual Delusions: Paranoid Ideation Perceptual Disturbances: Derealization Thought Process: Illogical, Distracted and Goal Oriented Thought Content: positive for Goal Oriented and positive for Tangential Judgement: Poor Diagnostics Vital Signs (24Hr): Vital Signs - 24 hr 07/01/21 18:50 Temperature 98.1 F Pulse Rate 84 Respiratory Rate 16 Blood Pressure 123/73 Pulse Oximetry 100 BMI result Verdana 4 Body Mass Index Verdana 4 28.0 Verdana 4 Verdana 4 Labs Results: 07/01/21 08:13 07/01/21 08:13 Labs: Laboratory Results - last 48 hr 07/01/21 07/01/21 07/01/21 08:13 08:13 08:13 WBC 7.8 RBC 5.76 Hgb 15.4 Hct 46.6 MCV 80.9 MCH 26.7 L MCHC 33.0 RDW 13.1 Plt Count 177 MPV 9.8 Immature Gran % (Auto) 0.6 H Neut % (Auto) 73.3 H Lymph % (Auto) 18.5 L Aiken % (Auto) 6.4 Eos % (Auto) 0.9 Baso % (Auto) 0.3 Lymph # (Auto) 1.4 Aiken # (Auto) 0.5 Eos # (Auto) 0.1 Baso # (Auto) 0.0 Abs Immat Gran (auto) 0.05 H Absolute Neuts (auto) 5.7 Absolute Nucleated RBC 0.000 Nucleated RBC % (auto) 0.0 Sodium 140 Potassium 4.2 Chloride 107 Carbon Dioxide 26 Anion Gap 11 L BUN 17 H Creatinine 1.23 Estim Creat Clear Calc 91.1 Estimated GFR > 60 Random Glucose 83 Estimat Average Glucose 103 Hemoglobin A1c % 5.2 Calcium 9.5 Total Bilirubin 1.1 H AST 28 ALT 24 Alkaline Phosphatase 51 Total Protein 6.6 Albumin 4.3 Triglycerides 52 Cholesterol 165 LDL Cholesterol, Calc 106 HDL Cholesterol 49 Vitamin B12 Folate TSH 1.28 07/01/21 08:13 WBC RBC Hgb Hct MCV MCH MCHC RDW Plt Count MPV Immature Gran % (Auto) Neut % (Auto) Lymph % (Auto) Aiken % (Auto) Eos % (Auto) Baso % (Auto) Lymph # (Auto) Aiken # (Auto) Eos # (Auto) Baso # (Auto) Abs Immat Gran (auto) Absolute Neuts (auto) Absolute Nucleated RBC Nucleated RBC % (auto) Sodium Potassium Chloride Carbon Dioxide Anion Gap BUN Creatinine Estim Creat Clear Calc Estimated GFR Random Glucose Estimat Average Glucose Hemoglobin A1c % Calcium Total Bilirubin AST ALT Alkaline Phosphatase Total Protein Albumin Triglycerides Cholesterol LDL Cholesterol, Calc HDL Cholesterol Vitamin B12 412 Folate 18.2 TSH Imaging Radiology Impressions: ITS Impressions Face X-Ray 04/21/21 15:29 IMPRESSION: No fracture seen. Orbit X-Ray 04/21/21 15:29 IMPRESSION: No fracture seen. Cervical Spine CT 04/24/21 22:24 IMPRESSION: No evidence of acute intracranial abnormalities. No evidence of acute maxillofacial fractures. However, evaluation of the inferior mandibular body is limited due to motion and although no definite fractures or surrounding soft tissue thickening/hematoma are identified, clinical correlation for pain/tenderness in the inferior mandible should be obtained as this is suboptimally assessed in this study. No acute cervical fractures or malalignment. Face CT 04/24/21 22:24 IMPRESSION: No evidence of acute intracranial abnormalities. No evidence of acute maxillofacial fractures. However, evaluation of the inferior mandibular body is limited due to motion and although no definite fractures or surrounding soft tissue thickening/hematoma are identified, clinical correlation for pain/tenderness in the inferior mandible should be obtained as this is suboptimally assessed in this study. No acute cervical fractures or malalignment. Head CT 04/24/21 22:24 IMPRESSION: No evidence of acute intracranial abnormalities. No evidence of acute maxillofacial fractures. However, evaluation of the inferior mandibular body is limited due to motion and although no definite fractures or surrounding soft tissue thickening/hematoma are identified, clinical correlation for pain/tenderness in the inferior mandible should be obtained as this is suboptimally assessed in this study. No acute cervical fractures or malalignment. Toe X-Ray 06/22/21 19:00 IMPRESSION: No appreciable phalangeal fractures of the right toes. Medications Medications Current Medications Acetaminophen (Acetaminophen 325 Mg Tablet) 650 mg PO Q6H PRN PRN Reason: Headache/Pain Mild Scale (1-3) Last Admin: 06/23/21 19:51 Dose: 650 mg Documented by: Al Hydroxide/Mg Hydroxide (Magnesium Hydrox/Alum Hydrox 30 Ml Oral.Susp) 30 ml PO Q6H PRN PRN Reason: Heartburn/Nausea Last Admin: 05/27/21 00:13 Dose: 30 ml Documented by: Benztropine Mesylate (Benztropine Mesylate 1 Mg Tablet) 1 mg PO TID PRN PRN Reason: Extrapyramidal Effects Chlorpromazine HCl (Chlorpromazine Hcl 100 Mg Tablet) 100 mg PO BID PRN PRN Reason: psychotic agitation Last Admin: 06/29/21 21:04 Dose: 100 mg Documented by: Chlorpromazine HCl (Chlorpromazine Hcl 100 Mg Tablet) 100 mg PO BEDTIME MARGAUX Last Admin: 07/01/21 21:51 Dose: 100 mg Documented by: Diphenhydramine HCl (Diphenhydramine Hcl 25 Mg Tablet) 50 mg PO Q4H PRN PRN Reason: agitation Last Admin: 06/22/21 23:53 Dose: 50 mg Documented by: Hydroxyzine HCl (Hydroxyzine Hcl 25 Mg Tablet) 25 mg PO QID PRN PRN Reason: Anxiety Last Admin: 05/21/21 21:14 Dose: 25 mg Documented by: Ibuprofen (Ibuprofen 600 Mg Tablet) 600 mg PO Q4H PRN PRN Reason: Pain, Moderate (Pain Scale 4-6 Last Admin: 05/22/21 07:13 Dose: 600 mg Documented by: Lidocaine (Lidocaine 4 % Patch Adh..Patch) 1 patch TRANSDERMA DAILY PRN; Protocol PRN Reason: cervical pain Last Admin: 06/20/21 07:24 Dose: 1 patch Documented by: Magnesium Hydroxide (Milk Of Magnesia 30 Ml Oral.Susp) 30 ml PO DAILY PRN PRN Reason: Constipation Nicotine (Nicotine 21 Mg Patch.Td24) 21 mg TRANSDERMA DAILY PRN PRN Reason: smoking cessation Nicotine Polacrilex (Nicotine Polacrilex 2 Mg Gum) 4 mg BUCCAL Q2H PRN PRN Reason: Nicotine Cravings Paliperidone Palmitate (Paliperidone Palmitate 234 Mg/1.5 Ml Syringe) 234 mg IM Q30D MARGAUX Last Admin: 06/21/21 12:06 Dose: 234 mg Documented by: Trazodone HCl (Trazodone Hcl 50 Mg Tablet) 50 mg PO BEDTIME PRN PRN Reason: Insomnia Allergies Allergies Allergy/AdvReac Type Severity Reaction Status Date / Time haloperidol [From HALDOL] Allergy Severe DYSTONIA Verified 04/19/21 06:28 ziprasidone [From GEODON] Allergy Severe DYSTONIA Verified 04/19/21 06:28 Assessment & Plan Assessment & Plan (1) Schizoaffective disorder, bipolar type: Status: Acute Code(s): F25.0 - Schizoaffective disorder, bipolar type Plan 05/07/21 Invega 6 mg 05/08. Continue Thorazine prn. (pt required IM back up on 05/07/21) 05/08/21 Continue current plan of care. 05/09/21: Ct w plan per Wolff order 05/10/21: Ct Rx plan 05/11/21: Continue Invega titration. 05/12/21 Pt tolerating Invega. Will begin Sustenna on 05/13. 05/13/21 Sustanna given, tolerated. Support, educate, integrate into milieu for added support. 05/14/21 Tolerating Sustenna. Calmer, more focused today. Asking for help with legal issues, attempting to organize his responsibilities 05/15/21 Continue current plan. 05/16/21 Continue current plan 05/17/21 Continue current plan 05/18/21 Follow up with probation-pt agrees and signed JEANNETTE Second Sustenna injection 05/21. Tolerating with breakthrough sx with PO as well. 05/19/21 Team/Peers report evening/night agitation Depakote 500 mg ER HS 05/20/21 Continue current regime Scheduled Invega injection for 05/21 Continue to attempt alliance building, education, support 05/21/21 Continue current regimen, no changes to medication, will monitor for benefit on invega sustenna COKER. Still taking PO invega. Has not been taking PO depakote, so will not order a level. 05/22/21 Continue current regimen, pt is tolerating invega sustenna well. Not taking depakote. Appropriate on the unit. 05/23/21: No changes to above med plan. 05/24/21: No changes to above plan, continue PO invega until invega sustenna reaches steady state. Pt somewhat intrusive with high fiving staff but redirectable. 05/26/21: Continue current plan. Vibra application 05/27/21 Pt has been refusing Depakote at hs with resulting poor sleep. Will give Chlorpromazine IM if Depakote is refused. 05/28/21 Continue current plan Labs 06/01/20. 05/29/21 Continue with current plan 05/30/21 continue with current treatment plan 05/31/21 continue with current treatment plan 06/01/21 Discontinue Depakote-pt prefers Chlorpromazine at HS-50 mg as he reports it is more helpful with sleep quality assistance. 06/03/21: Education, support. Vibra application. 06/04/21: Increase Chlorpromazine to 75 mg HS to assist with mgt of lability. 06/05/21: Continue current regime 06/06 continue current medications 06/09/21: Continue current plan of care Support, Educate, Inform, encourage pt's interests. 06/11/21: More engaged in milieu today. Attentive to ADL's with team encouragement. Continue plan of care. 06/12/21: Continue current regime. Sustenna due 06/21/21. 06/13/21 - 06/14/21 No changes Continue with current treatment plan 06/15/21 Continue current plan of care Invega Sustenna injection due 06/21/21. 06/16/21 Continue current plan of care. 06/17/21 Continue current plan of care Increase Chlorpromazine to 100 mg HS Discussed tapering PO Invega most likely between second and third injection of COKER. Discussed with pt treating his mood. At this time he would like more time to assess effects of therapy and COKER. 06/18/21 Continue current plan. Offer support and structure 06/19/10 Sustenna Injection 06/21. 06/20/21 No changes to the above 06/21/21 No change 06/23/21- pt without SI/HI/VH/AH, no overt delusional content reported. overly familiar with staff/asking multiple request but polite and able to be redirected. 06/26/21- Processing discussion of 06/25/21. Elopement risk Continue current plan of care. 06/29/21- Denies SE of COKER given 06/21. Continues to decline psychopharmacology intervention for mood symptoms-prefers to talk it out . Update diagnostics- EKG, CBC, CMP, TSH, Lipids, A1c, TSH, B12,Folate Pt has expressed interest in leaning to speak and write Indonesian-given resources so he may explore this interest. Support/Educate LT Plan: Vibra 06/30/21: continue current treatment plan. pt stable. 07/01/21: Continue current treatment plan. 07/02/21: Continue current treatment plan. Review of EKG changes, RBBB with [facility], Dr. Murillo-. They report this finding to be chronic, not in need of further eval or consult. I spent 35 minutes with the patient and/or on the patient floor today, greater than?50% of which was spent counseling/coordinating care. Patient educated on: medication risk/benefits and therapeutic strategies Informed Consent: further education needed Reason for contiued inpatient stay Substantial Risk for: harm to self, harm to others, inability to function and rapid decompensation
[2021-07-02 19:00] VITALS: BP 107/63; PULSE 95; RESP 16; TEMP 36.7; O2SAT 96
[2021-07-02] MEDS: chlorproMAZINE HCl 100 MG TABLET PO (20:57)
[2021-07-03 05:33] VITALS: BP 139/77; PULSE 128; TEMP 36.2; O2SAT 96
--- NOTE | 2021-07-03 09:25 | P.PNPSI_ITS ---
Subjective Subjective Date of Service: 07/03/21 Reason For Visit: Schizophrenia Subjective Notes: Section 8 Interim History: Pt has been mostly in his room, not as intrusive with staff or peers. Pt reports he noticed he was bothering staff too much and trying to keep his distance. Pt reports he is waiting for some books he ordered online. He also hopes he doesn't go to [employer] but understands that's not this contract writer's decision. He states he feels that staff are too busy to talk to him or his providers although does admit he talks daily with Shikha at length. He wants to start therapy while on the unit. No behavioral concerns. sleeping through the night. Medication Compliance: Yes Side effects from medications: No Review of Systems Review of Systems no changes Yes all other systems are reviewed and are negative Constitutional: Reports no additional constitutional complaints Genitourinary: Reports change in libido Musculoskeletal: Reports other (denies, s/p punching a wall with abrasions sustatined) Reports behavioral changes, Reports confusion and Reports memory loss Psychiatric: Reports abnormal sleep pattern, Reports anxiety, Reports behavioral changes, Reports change in libido, Reports confusion, Reports depression, Reports difficulty concentrating, Reports auditory hallucinations, Reports hopelessness, Reports irritability, Reports anhedonia, Reports memory loss, Reports mood swings, Reports paranoia, Reports visual hallucinations, Reports hallucinations, Reports homicidal ideation, Reports suicidal ideation (denies) and Reports other (aggression, agitation, violence precipitating restraint) Endocrine: Reports change in libido Mental Status Exam Mental Status Exam Narrative: Patient Appearance:?Appropriate Patient Orientation:?Person, Place, Time and Situation Level of Consciousness:?Alert Patient Behavior:?Talkative and Good Eye Contact, friendly Mood Description:? good Affect Description:?congruent Patient Cognition Impaired:?No Ability to Follow Directions:?Good Speech Pattern:?Spontaneous Speech Memory Description:?Episodic Impaired Hallucinations:?none Delusions:?no overt delusional content Thought Process:?Distracted and Rumination Thought Content:?no overt psychosis noted, Depressive Symptoms:?Increased Anxiety and Low Self Esteem Abnormal Motor Activity Signs and Symptoms:?Restlessness Judgement:?Poor Diagnostics Vital Signs (24Hr): Vital Signs - 24 hr 07/02/21 19:00 07/03/21 05:33 Temperature 98.1 F 97.2 F Pulse Rate 95 128 H Respiratory Rate 16 Blood Pressure 107/63 139/77 Pulse Oximetry 96 96 BMI result Verdana 4 Body Mass Index Verdana 4 28.0 Verdana 4 Verdana 4 Labs Results: 07/01/21 08:13 07/01/21 08:13 Imaging Radiology Impressions: ITS Impressions Face X-Ray 04/21/21 15:29 IMPRESSION: No fracture seen. Orbit X-Ray 04/21/21 15:29 IMPRESSION: No fracture seen. Cervical Spine CT 04/24/21 22:24 IMPRESSION: No evidence of acute intracranial abnormalities. No evidence of acute maxillofacial fractures. However, evaluation of the inferior mandibular body is limited due to motion and although no definite fractures or surrounding soft tissue thickening/hematoma are identified, clinical correlation for pain/tenderness in the inferior mandible should be obtained as this is suboptimally assessed in this study. No acute cervical fractures or malalignment. Face CT 04/24/21 22:24 IMPRESSION: No evidence of acute intracranial abnormalities. No evidence of acute maxillofacial fractures. However, evaluation of the inferior mandibular body is limited due to motion and although no definite fractures or surrounding soft tissue thickening/hematoma are identified, clinical correlation for pain/tenderness in the inferior mandible should be obtained as this is suboptimally assessed in this study. No acute cervical fractures or malalignment. Head CT 04/24/21 22:24 IMPRESSION: No evidence of acute intracranial abnormalities. No evidence of acute maxillofacial fractures. However, evaluation of the inferior mandibular body is limited due to motion and although no definite fractures or surrounding soft tissue thickening/hematoma are identified, clinical correlation for pain/tenderness in the inferior mandible should be obtained as this is suboptimally assessed in this study. No acute cervical fractures or malalignment. Toe X-Ray 06/22/21 19:00 IMPRESSION: No appreciable phalangeal fractures of the right toes. Medications Medications Current Medications Acetaminophen (Acetaminophen 325 Mg Tablet) 650 mg PO Q6H PRN PRN Reason: Headache/Pain Mild Scale (1-3) Last Admin: 06/23/21 19:51 Dose: 650 mg Documented by: Al Hydroxide/Mg Hydroxide (Magnesium Hydrox/Alum Hydrox 30 Ml Oral.Susp) 30 ml PO Q6H PRN PRN Reason: Heartburn/Nausea Last Admin: 05/27/21 00:13 Dose: 30 ml Documented by: Benztropine Mesylate (Benztropine Mesylate 1 Mg Tablet) 1 mg PO TID PRN PRN Reason: Extrapyramidal Effects Chlorpromazine HCl (Chlorpromazine Hcl 100 Mg Tablet) 100 mg PO BID PRN PRN Reason: psychotic agitation Last Admin: 06/29/21 21:04 Dose: 100 mg Documented by: Chlorpromazine HCl (Chlorpromazine Hcl 100 Mg Tablet) 100 mg PO BEDTIME MARGAUX Last Admin: 07/02/21 20:57 Dose: 100 mg Documented by: Chlorpromazine HCl (Chlorpromazine Hcl 50 Mg/2 Ml Ampul) 100 mg IM BEDTIME PRN PRN Reason: if pt refuses PO per court order Diphenhydramine HCl (Diphenhydramine Hcl 25 Mg Tablet) 50 mg PO Q4H PRN PRN Reason: agitation Last Admin: 06/22/21 23:53 Dose: 50 mg Documented by: Hydroxyzine HCl (Hydroxyzine Hcl 25 Mg Tablet) 25 mg PO QID PRN PRN Reason: Anxiety Last Admin: 05/21/21 21:14 Dose: 25 mg Documented by: Ibuprofen (Ibuprofen 600 Mg Tablet) 600 mg PO Q4H PRN PRN Reason: Pain, Moderate (Pain Scale 4-6 Last Admin: 05/22/21 07:13 Dose: 600 mg Documented by: Lidocaine (Lidocaine 4 % Patch Adh..Patch) 1 patch TRANSDERMA DAILY PRN; Protocol PRN Reason: cervical pain Last Admin: 06/20/21 07:24 Dose: 1 patch Documented by: Magnesium Hydroxide (Milk Of Magnesia 30 Ml Oral.Susp) 30 ml PO DAILY PRN PRN Reason: Constipation Nicotine (Nicotine 21 Mg Patch.Td24) 21 mg TRANSDERMA DAILY PRN PRN Reason: smoking cessation Nicotine Polacrilex (Nicotine Polacrilex 2 Mg Gum) 4 mg BUCCAL Q2H PRN PRN Reason: Nicotine Cravings Paliperidone Palmitate (Paliperidone Palmitate 234 Mg/1.5 Ml Syringe) 234 mg IM Q30D [facility] Last Admin: 06/21/21 12:06 Dose: 234 mg Documented by: Trazodone HCl (Trazodone Hcl 50 Mg Tablet) 50 mg PO BEDTIME PRN PRN Reason: Insomnia Allergies Allergies Allergy/AdvReac Type Severity Reaction Status Date / Time haloperidol [From HALDOL] Allergy Severe DYSTONIA Verified 04/19/21 06:28 ziprasidone [From GEODON] Allergy Severe DYSTONIA Verified 04/19/21 06:28 Assessment & Plan Assessment & Plan (1) Schizoaffective disorder, bipolar type: Status: Acute Code(s): F25.0 - Schizoaffective disorder, bipolar type Plan 05/07/21 Invega 6 mg 05/08. Continue Thorazine prn. (pt required IM back up on 05/07/21) 05/08/21 Continue current plan of care. 05/09/21: Ct w plan per [facility]ff order 05/10/21: Ct Rx plan 05/11/21: Continue Invega titration. 05/12/21 Pt tolerating Invega. Will begin Sustenna on 05/13. 05/13/21 Sustanna given, tolerated. Support, educate, integrate into milieu for added support. 05/14/21 Tolerating Sustenna. Calmer, more focused today. Asking for help with legal issues, attempting to organize his responsibilities 05/15/21 Continue current plan. 05/16/21 Continue current plan 05/17/21 Continue current plan 05/18/21 Follow up with probation-pt agrees and signed JEANNETTE Second Sustenna injection 05/21. Tolerating with breakthrough sx with PO as well. 05/19/21 Team/Peers report evening/night agitation Depakote 500 mg ER HS 05/20/21 Continue current regime Scheduled Invega injection for 05/21 Continue to attempt alliance building, education, support 05/21/21 Continue current regimen, no changes to medication, will monitor for benefit on invega sustenna COKER. Still taking PO invega. Has not been taking PO depakote, so will not order a level. 05/22/21 Continue current regimen, pt is tolerating invega sustenna well. Not taking depakote. Appropriate on the unit. 05/23/21: No changes to above med plan. 05/24/21: No changes to above plan, continue PO invega until invega sustenna reaches steady state. Pt somewhat intrusive with high fiving staff but redirectable. 05/26/21: Continue current plan. Vibra application 05/27/21 Pt has been refusing Depakote at hs with resulting poor sleep. Will give Chlorpromazine IM if Depakote is refused. 05/28/21 Continue current plan Labs 06/01/20. 05/29/21 Continue with current plan 05/30/21 continue with current treatment plan 05/31/21 continue with current treatment plan 06/01/21 Discontinue Depakote-pt prefers Chlorpromazine at HS-50 mg as he reports it is more helpful with sleep quality assistance. 06/03/21: Education, support. Vibra application. 06/04/21: Increase Chlorpromazine to 75 mg HS to assist with mgt of lability. 06/05/21: Continue current regime 06/06 continue current medications 06/09/21: Continue current plan of care Support, Educate, Inform, encourage pt's interests. 06/11/21: More engaged in milieu today. Attentive to ADL's with team daysi huerta. Continue plan of care. 06/12/21: Continue current regime. Sustenna due 06/21/21. 06/13/21 - 06/14/21 No changes Continue with current treatment plan 06/15/21 Continue current plan of care Invega Sustenna injection due 06/21/21. 06/16/21 Continue current plan of care. 06/17/21 Continue current plan of care Increase Chlorpromazine to 100 mg HS Discussed tapering PO Invega most likely between second and third injection of COKER. Discussed with pt treating his mood. At this time he would like more time to assess effects of therapy and COKER. 06/18/21 Continue current plan. Offer support and structure 06/19/10 Sustenna Injection 06/21. 06/20/21 No changes to the above 06/21/21 No change 06/23/21- pt without SI/HI/VH/AH, no overt delusional content reported. overly familiar with staff/asking multiple request but polite and able to be redirected. 06/26/21- Processing discussion of 06/25/21. Elopement risk Continue current plan of care. 06/29/21- Denies SE of COEKR given 06/21. Continues to decline psychopharmacology intervention for mood symptoms-prefers to talk it out . Update diagnostics- EKG, CBC, CMP, TSH, Lipids, A1c, TSH, B12,Folate Pt has expressed interest in leaning to speak and write Sinhala-given resources so he may explore this interest. Support/Educate LT Plan: Vibra 06/30/21: continue current treatment plan. pt stable. 07/01/21: Continue current treatment plan. 07/02/21: Continue current treatment plan. Review of EKG changes, [place] with [facility] [place], Dr. Murillo-. They report this finding to be chronic, not in need of further eval or consult. 07/03- continue current treatment plan. I spent minutes with the patient and/or on the patient floor today, greater than?50% of which was spent counseling/coordinating care. Reason for contiued inpatient stay Substantial Risk for: inability to function
[2021-07-03 18:00] VITALS: BP 118/79; PULSE 94; TEMP 36.8
[2021-07-03] MEDS: chlorproMAZINE HCl 100 MG TABLET PO (22:37)
--- NOTE | 2021-07-04 16:38 | P.PNPSI_ITS ---
Subjective Subjective Date of Service: 07/04/21 Reason For Visit: Schizophrenia Interim History: Patient seen and discussed with team. Per staff rn, pt is more isolative, responding to internal stimuli at times, attended psych group yesterday Patient evaluated this morning and upon interview he reports he is good, says sleep is great. Says he ordered books and wants to order a new nintendo switch. Says he needs to talk with SW about bills that need to be paid and fees/ fines through court. Also wants to start counseling. Says he is trying to journal more. Wants to go to [facility] on discharge. In the milieu, patient is safe but isolative in behavior. Denies SI/SIB/HI upon inquiry. Denies irritability or assaultive ideation. Says he feels safe. Medication Compliance: Yes Side effects from medications: No Attending Groups: Intermittent Review of Systems Acute medical concerns: No Medical Review of Systems: unchanged Mental Status Exam Mental Status Exam Narrative: Patient Appearance:?Appropriate Patient Orientation:?Person, Place, Time and Situation Level of Consciousness:?Alert Patient Behavior:?Talkative and Good Eye Contact, friendly Mood Description:? good Affect Description:?congruent Patient Cognition Impaired:?No Ability to Follow Directions:?Good Speech Pattern:?Spontaneous Speech Memory Description:?Episodic Impaired Hallucinations:?none Delusions:?no overt delusional content Thought Process:?Distracted and Rumination Thought Content:?no overt psychosis noted, Depressive Symptoms:?Increased Anxiety and Low Self Esteem Abnormal Motor Activity Signs and Symptoms:?Restlessness Judgment:?Poor Diagnostics Vital Signs (24Hr): Vital Signs - 24 hr 07/05/21 17:17 07/06/21 06:00 Temperature 98.6 F 97.4 F Pulse Rate 92 101 H Respiratory Rate 18 18 Blood Pressure 128/71 126/69 Pulse Oximetry 99 97 BMI result Verdana 4 Body Mass Index Verdana 4 28.0 Verdana 4 Verdana 4 Labs Results: 07/01/21 08:13 07/01/21 08:13 Imaging Radiology Impressions: ITS Impressions Face X-Ray 04/21/21 15:29 IMPRESSION: No fracture seen. Orbit X-Ray 04/21/21 15:29 IMPRESSION: No fracture seen. Cervical Spine CT 04/24/21 22:24 IMPRESSION: No evidence of acute intracranial abnormalities. No evidence of acute maxillofacial fractures. However, evaluation of the inferior mandibular body is limited due to motion and although no definite fractures or surrounding soft tissue thickening/hematoma are identified, clinical correlation for pain/tenderness in the inferior mandible should be obtained as this is suboptimally assessed in this study. No acute cervical fractures or malalignment. Face CT 04/24/21 22:24 IMPRESSION: No evidence of acute intracranial abnormalities. No evidence of acute maxillofacial fractures. However, evaluation of the inferior mandibular body is limited due to motion and although no definite fractures or surrounding soft tissue thickening/hematoma are identified, clinical correlation for pain/tenderness in the inferior mandible should be obtained as this is suboptimally assessed in this study. No acute cervical fractures or malalignment. Head CT 04/24/21 22:24 IMPRESSION: No evidence of acute intracranial abnormalities. No evidence of acute maxillofacial fractures. However, evaluation of the inferior mandibular body is limited due to motion and although no definite fractures or surrounding soft tissue thickening/hematoma are identified, clinical correlation for pain/tenderness in the inferior mandible should be obtained as this is suboptimally assessed in this study. No acute cervical fractures or malalignment. Toe X-Ray 06/22/21 19:00 IMPRESSION: No appreciable phalangeal fractures of the right toes. Medications Medications Current Medications Acetaminophen (Acetaminophen 325 Mg Tablet) 650 mg PO Q6H PRN PRN Reason: Headache/Pain Mild Scale (1-3) Last Admin: 06/23/21 19:51 Dose: 650 mg Documented by: Al Hydroxide/Mg Hydroxide (Magnesium Hydrox/Alum Hydrox 30 Ml Oral.Susp) 30 ml PO Q6H PRN PRN Reason: Heartburn/Nausea Last Admin: 05/27/21 00:13 Dose: 30 ml Documented by: Benztropine Mesylate (Benztropine Mesylate 1 Mg Tablet) 1 mg PO TID PRN PRN Reason: Extrapyramidal Effects Chlorpromazine HCl (Chlorpromazine Hcl 100 Mg Tablet) 100 mg PO BID PRN PRN Reason: psychotic agitation Last Admin: 06/29/21 21:04 Dose: 100 mg Documented by: Chlorpromazine HCl (Chlorpromazine Hcl 100 Mg Tablet) 100 mg PO BEDTIME MARGAUX Last Admin: 07/05/21 20:04 Dose: 100 mg Documented by: Chlorpromazine HCl (Chlorpromazine Hcl 50 Mg/2 Ml Ampul) 100 mg IM BEDTIME PRN PRN Reason: if pt refuses PO per court order Diphenhydramine HCl (Diphenhydramine Hcl 25 Mg Tablet) 50 mg PO Q4H PRN PRN Reason: agitation Last Admin: 06/22/21 23:53 Dose: 50 mg Documented by: Hydroxyzine HCl (Hydroxyzine Hcl 25 Mg Tablet) 25 mg PO QID PRN PRN Reason: Anxiety Last Admin: 05/21/21 21:14 Dose: 25 mg Documented by: Ibuprofen (Ibuprofen 600 Mg Tablet) 600 mg PO Q4H PRN PRN Reason: Pain, Moderate (Pain Scale 4-6 Last Admin: 05/22/21 07:13 Dose: 600 mg Documented by: Lidocaine (Lidocaine 4 % Patch Adh..Patch) 1 patch TRANSDERMA DAILY PRN; Protocol PRN Reason: cervical pain Last Admin: 06/20/21 07:24 Dose: 1 patch Documented by: Magnesium Hydroxide (Milk Of Magnesia 30 Ml Oral.Susp) 30 ml PO DAILY PRN PRN Reason: Constipation Nicotine (Nicotine 21 Mg Patch.Td24) 21 mg TRANSDERMA DAILY PRN PRN Reason: smoking cessation Nicotine Polacrilex (Nicotine Polacrilex 2 Mg Gum) 4 mg BUCCAL Q2H PRN PRN Reason: Nicotine Cravings Paliperidone Palmitate (Paliperidone Palmitate 234 Mg/1.5 Ml Syringe) 234 mg IM Q30D MARGAUX Last Admin: 06/21/21 12:06 Dose: 234 mg Documented by: Trazodone HCl (Trazodone Hcl 50 Mg Tablet) 50 mg PO BEDTIME PRN PRN Reason: Insomnia Allergies Allergies Allergy/AdvReac Type Severity Reaction Status Date / Time haloperidol [From HALDOL] Allergy Severe DYSTONIA Verified 04/19/21 06:28 ziprasidone [From GEODON] Allergy Severe DYSTONIA Verified 04/19/21 06:28 Assessment & Plan Assessment & Plan (1) Schizoaffective disorder, bipolar type: Status: Acute Code(s): F25.0 - Schizoaffective disorder, bipolar type Plan 05/07/21 Invega 6 mg 05/08. Continue Thorazine prn. (pt required IM back up on 05/07/21) 05/08/21 Continue current plan of care. 05/09/21: Ct w plan per [facility]ff order 05/10/21: Ct Rx plan 05/11/21: Continue Invega titration. 05/12/21 Pt tolerating Invega. Will begin Sustenna on 05/13. 05/13/21 Sustanna given, tolerated. Support, educate, integrate into milieu for added support. 05/14/21 Tolerating Sustenna. Calmer, more focused today. Asking for help with legal issues, attempting to organize his responsibilities 05/15/21 Continue current plan. 05/16/21 Continue current plan 05/17/21 Continue current plan 05/18/21 Follow up with probation-pt agrees and signed JEANNETTE Second Sustenna injection 05/21. Tolerating with breakthrough sx with PO as well. 05/19/21 Team/Peers report evening/night agitation Depakote 500 mg ER HS 05/20/21 Continue current regime Scheduled Invega injection for 05/21 Continue to attempt alliance building, education, support 05/21/21 Continue current regimen, no changes to medication, will monitor for benefit on invega sustenna COKER. Still taking PO invega. Has not been taking PO depakote, so will not order a level. 05/22/21 Continue current regimen, pt is tolerating invega sustenna well. Not taking depakote. Appropriate on the unit. 05/23/21: No changes to above med plan. 05/24/21: No changes to above plan, continue PO invega until invega sustenna reaches steady state. Pt somewhat intrusive with high fiving staff but redirectable. 05/26/21: Continue current plan. Vibra application 05/27/21 Pt has been refusing Depakote at hs with resulting poor sleep. Will give Chlorpromazine IM if Depakote is refused. 05/28/21 Continue current plan Labs 06/01/20. 05/29/21 Continue with current plan 05/30/21 continue with current treatment plan 05/31/21 continue with current treatment plan 06/01/21 Discontinue Depakote-pt prefers Chlorpromazine at HS-50 mg as he reports it is more helpful with sleep quality assistance. 06/03/21: Education, support. Vibra application. 06/04/21: Increase Chlorpromazine to 75 mg HS to assist with mgt of lability. 06/05/21: Continue current regime 06/06 continue current medications 06/09/21: Continue current plan of care Support, Educate, Inform, encourage pt's interests. 06/11/21: More engaged in milieu today. Attentive to ADL's with team encouragement. Continue plan of care. 06/12/21: Continue current regime. Sustenna due 06/21/21. 06/13/21 - 06/14/21 No changes Continue with current treatment plan 06/15/21 Continue current plan of care Invega Sustenna injection due 06/21/21. 06/16/21 Continue current plan of care. 06/17/21 Continue current plan of care Increase Chlorpromazine to 100 mg HS Discussed tapering PO Invega most likely between second and third injection of COKER. Discussed with pt treating his mood. At this time he would like more time to assess effects of therapy and COKER. 06/18/21 Continue current plan. Offer support and structure 06/19/10 Sustenna Injection 06/21. 06/20/21 No changes to the above 06/21/21 No change 06/23/21- pt without SI/HI/VH/AH, no overt delusional content reported. overly familiar with staff/asking multiple request but polite and able to be red irected. 06/26/21- Processing discussion of 06/25/21. Elopement risk Continue current plan of care. 06/29/21- Denies SE of COKER given 06/21. Continues to decline psychopharmacology intervention for mood symptoms-prefers to talk it out . Update diagnostics- EKG, CBC, CMP, TSH, Lipids, A1c, TSH, B12,Folate Pt has expressed interest in leaning to speak and write [place]-given resources so he may explore this interest. Support/Educate LT Plan: Vibra 06/30/21: continue current treatment plan. pt stable. 07/01/21: Continue current treatment plan. 07/02/21: Continue current treatment plan. Review of EKG changes, RBBB with [facility], Dr. Murillo-. They report this finding to be chronic, not in need of further eval or consult. 07/03- continue current treatment plan. 07/04- no medication changes I spent minutes with the patient and/or on the patient floor today, gre ater than?50% of which was spent counseling/coordinating care. Reason for contiued inpatient stay Substantial Risk for: rapid decompensation and med/psych decompensation
[2021-07-04 18:49] VITALS: BP 133/84; PULSE 98; RESP 16; TEMP 37.2; O2SAT 98
[2021-07-04] MEDS: chlorproMAZINE HCl 100 MG TABLET PO (20:11)
[2021-07-05 06:00] VITALS: BP 126/78; PULSE 97; TEMP 36.8; O2SAT 98
--- NOTE | 2021-07-05 12:57 | P.PNPSI_ITS ---
Subjective Subjective Date of Service: 07/05/21 Reason For Visit: Schizophrenia Interim History: Patient seen and discussed with team. Per icu staff nurse, pt was found with his phone in his bed, presumably had it all night. Patient evaluated this morning and upon interview he reports he was using his phone to look up numbers to get a new PO box and change of address. He also set up a new email address and got the number for the [email or web address] [employer]. Says his mood is pretty good. He slept okay, woke up at 4am, getting 5-7 hours of sleep. Asks again about seeing a counselor. In the milieu, patient is safe, less intrusive in behavior. Denies SI/SIB/HI upon inquiry. Denies irritability or assaultive ideation. Says he feels safe. Medication Compliance: Yes Side effects from medications: No Attending Groups: Intermittent Review of Systems Acute medical concerns: No Medical Review of Systems: unchanged Mental Status Exam Mental Status Exam Narrative: Patient Appearance:?Appropriate Patient Orientation:?Person, Place, Time and Situation Level of Consciousness:?Alert Patient Behavior:?Talkative and Good Eye Contact, friendly Mood Description:? good Affect Description:?congruent Patient Cognition Impaired:?No Ability to Follow Directions:?Good Speech Pattern:?Spontaneous Speech Memory Description:?Episodic Impaired Hallucinations:?none Delusions:?no overt delusional content Thought Process:?Distracted and Rumination Thought Content:?no overt psychosis noted, Depressive Symptoms:?Increased Anxiety and Low Self Esteem Abnormal Motor Activity Signs and Symptoms:?Restlessness Judgment:?Poor Diagnostics Vital Signs (24Hr): Vital Signs - 24 hr 07/04/21 18:49 07/05/21 06:00 Temperature 99.0 F 98.2 F Pulse Rate 98 97 Respiratory Rate 16 Blood Pressure 133/84 126/78 Pulse Oximetry 98 98 BMI result Verdana 4 Body Mass Index Verdana 4 28.0 Verdana 4 Verdana 4 Labs Results: 07/01/21 08:13 07/01/21 08:13 Imaging Radiology Impressions: ITS Impressions Face X-Ray 04/21/21 15:29 IMPRESSION: No fracture seen. Orbit X-Ray 04/21/21 15:29 IMPRESSION: No fracture seen. Cervical Spine CT 04/24/21 22:24 IMPRESSION: No evidence of acute intracranial abnormalities. No evidence of acute maxillofacial fractures. However, evaluation of the inferior mandibular body is limited due to motion and although no definite fractures or surrounding soft tissue thickening/hematoma are identified, clinical correlation for pain/tenderness in the inferior mandible should be obtained as this is suboptimally assessed in this study. No acute cervical fractures or malalignment. Face CT 04/24/21 22:24 IMPRESSION: No evidence of acute intracranial abnormalities. No evidence of acute maxillofacial fractures. However, evaluation of the inferior mandibular body is limited due to motion and although no definite fractures or surrounding soft tissue thickening/hematoma are identified, clinical correlation for pain/tenderness in the inferior mandible should be obtained as this is suboptimally assessed in this study. No acute cervical fractures or malalignment. Head CT 04/24/21 22:24 IMPRESSION: No evidence of acute intracranial abnormalities. No evidence of acute maxillofacial fractures. However, evaluation of the inferior mandibular body is limited due to motion and although no definite fractures or surrounding soft tissue thickening/hematoma are identified, clinical correlation for pain/tenderness in the inferior mandible should be obtained as this is suboptimally assessed in this study. No acute cervical fractures or malalignment. Toe X-Ray 06/22/21 19:00 IMPRESSION: No appreciable phalangeal fractures of the right toes. Medications Medications Current Medications Acetaminophen (Acetaminophen 325 Mg Tablet) 650 mg PO Q6H PRN PRN Reason: Headache/Pain Mild Scale (1-3) Last Admin: 06/23/21 19:51 Dose: 650 mg Documented by: Al Hydroxide/Mg Hydroxide (Magnesium Hydrox/Alum Hydrox 30 Ml Oral.Susp) 30 ml PO Q6H PRN PRN Reason: Heartburn/Nausea Last Admin: 05/27/21 00:13 Dose: 30 ml Documented by: Benztropine Mesylate (Benztropine Mesylate 1 Mg Tablet) 1 mg PO TID PRN PRN Reason: Extrapyramidal Effects Chlorpromazine HCl (Chlorpromazine Hcl 100 Mg Tablet) 100 mg PO BID PRN PRN Reason: psychotic agitation Last Admin: 06/29/21 21:04 Dose: 100 mg Documented by: Chlorpromazine HCl (Chlorpromazine Hcl 100 Mg Tablet) 100 mg PO BEDTIME MARGAUX Last Admin: 07/04/21 20:11 Dose: 100 mg Documented by: Chlorpromazine HCl (Chlorpromazine Hcl 50 Mg/2 Ml Ampul) 100 mg IM BEDTIME PRN PRN Reason: if pt refuses PO per court order Diphenhydramine HCl (Diphenhydramine Hcl 25 Mg Tablet) 50 mg PO Q4H PRN PRN Reason: agitation Last Admin: 06/22/21 23:53 Dose: 50 mg Documented by: Hydroxyzine HCl (Hydroxyzine Hcl 25 Mg Tablet) 25 mg PO QID PRN PRN Reason: Anxiety Last Admin: 05/21/21 21:14 Dose: 25 mg Documented by: Ibuprofen (Ibuprofen 600 Mg Tablet) 600 mg PO Q4H PRN PRN Reason: Pain, Moderate (Pain Scale 4-6 Last Admin: 05/22/21 07:13 Dose: 600 mg Documented by: Lidocaine (Lidocaine 4 % Patch Adh..Patch) 1 patch TRANSDERMA DAILY PRN; Protocol PRN Reason: cervical pain Last Admin: 06/20/21 07:24 Dose: 1 patch Documented by: Magnesium Hydroxide (Milk Of Magnesia 30 Ml Oral.Susp) 30 ml PO DAILY PRN PRN Reason: Constipation Nicotine (Nicotine 21 Mg Patch.Td24) 21 mg TRANSDERMA DAILY PRN PRN Reason: smoking cessation Nicotine Polacrilex (Nicotine Polacrilex 2 Mg Gum) 4 mg BUCCAL Q2H PRN PRN Reason: Nicotine Cravings Paliperidone Palmitate (Paliperidone Palmitate 234 Mg/1.5 Ml Syringe) 234 mg IM Q30D MARGAUX Last Admin: 06/21/21 12:06 Dose: 234 mg Documented by: Trazodone HCl (Trazodone Hcl 50 Mg Tablet) 50 mg PO BEDTIME PRN PRN Reason: Insomnia Allergies Allergies Allergy/AdvReac Type Severity Reaction Status Date / Time haloperidol [From HALDOL] Allergy Severe DYSTONIA Verified 04/19/21 06:28 ziprasidone [From GEODON] Allergy Severe DYSTONIA Verified 04/19/21 06:28 Assessment & Plan Assessment & Plan (1) Schizoaffective disorder, bipolar type: Status: Acute Code(s): F25.0 - Schizoaffective disorder, bipolar type Plan 05/07/21 Invega 6 mg 05/08. Continue Thorazine prn. (pt required IM back up on 05/07/21) 05/08/21 Continue current plan of care. 05/09/21: Ct w plan per [facility] order 05/10/21: Ct Rx plan 05/11/21: Continue Invega titration. 05/12/21 Pt tolerating Invega. Will begin Sustenna on 05/13. 05/13/21 Sustanna given, tolerated. Support, educate, integrate into milieu for added support. 05/14/21 Tolerating Sustenna. Calmer, more focused today. Asking for help with legal issues, attempting to organize his responsibilities 05/15/21 Continue current plan. 05/16/21 Continue current plan 05/17/21 Continue current plan 05/18/21 Follow up with probation-pt agrees and signed JEANNETTE Second Sustenna injection 05/21. Tolerating with breakthrough sx with PO as well. 05/19/21 Team/Peers report evening/night agitation Depakote 500 mg ER HS 05/20/21 Continue current regime Scheduled Invega injection for 05/21 Continue to attempt alliance building, education, support 05/21/21 Continue current regimen, no changes to medication, will monitor for benefit on invega sustenna COKER. Still taking PO invega. Has not been taking PO depakote, so will not order a level. 05/22/21 Continue current regimen, pt is tolerating invega sustenna well. Not taking depakote. Appropriate on the unit. 05/23/21: No changes to above med plan. 05/24/21: No changes to above plan, continue PO invega until invega sustenna reaches steady state. Pt somewhat intrusive with high fiving staff but redirectable. 05/26/21: Continue current plan. Vibra application 05/27/21 Pt has been refusing Depakote at hs with resulting poor sleep. Will give Chlorpromazine IM if Depakote is refused. 05/28/21 Continue current plan Labs 06/01/20. 05/29/21 Continue with current plan 05/30/21 continue with current treatment plan 05/31/21 continue with current treatment plan 06/01/21 Discontinue Depakote-pt prefers Chlorpromazine at HS-50 mg as he reports it is more helpful with sleep quality assistance. 06/03/21: Education, support. Vibra application. 06/04/21: Increase Chlorpromazine to 75 mg HS to assist with mgt of lability. 06/05/21: Continue current regime 06/06 continue current medications 06/09/21: Continue current plan of care Support, Educate, Inform, encourage pt's interests. 06/11/21: More engaged in milieu today. Attentive to ADL's with team encouragement. Continue plan of care. 06/12/21: Continue current regime. Sustenna due 06/21/21. 06/13/21 - 06/14/21 No changes Continue with current treatment plan 06/15/21 Continue current plan of care Invega Sustenna injection due 06/21/21. 06/16/21 Continue current plan of care. 06/17/21 Continue current plan of care Increase Chlorpromazine to 100 mg HS Discussed tapering PO Invega most likely between second and third injection of COKER. Discussed with pt treating his mood. At this time he would like more time to assess effects of therapy and COKER. 06/18/21 Continue current plan. Offer support and structure 06/19/10 Sustenna Injection 06/21. 06/20/21 No changes to the above 06/21/21 No change 06/23/21- pt without SI/HI/VH/AH, no overt delusional content reported. overly familiar with staff/asking multiple request but polite and able to be redirected. 06/26/21- Processing discussion of 06/25/21. Elopement risk Continue current plan of care. 06/29/21- Denies SE of COKER given 06/21. Continues to decline psychopharmacology intervention for mood symptoms-prefers to talk it out . Update diagnostics- EKG, CBC, CMP, TSH, Lipids, A1c, TSH, B12,Folate Pt has expressed interest in leaning to speak and write [place]-given resources so he may explore this interest. Support/Educate LT Plan: Vibra 06/30/21: continue current treatment plan. pt stable. 07/01/21: Continue current treatment plan. 07/02/21: Continue current treatment plan. Review of EKG changes, RBBB with [facility], Dr. Murillo-. They report this finding to be chronic, not in need of further eval or consult. 07/03- continue current treatment plan. 07/04- no medication changes 07/05- no medication changes, pt will f/u with SW tomorrow to discuss counseling needs I spent minutes with the patient and/or on the patient floor today, greater than?50% of which was spent counseling/coordinating care. Reason for contiued inpatient stay Substantial Risk for: rapid decompensation and med/psych decompensation
[2021-07-05 17:17] VITALS: BP 128/71; PULSE 92; RESP 18; TEMP 37; O2SAT 99
[2021-07-05] MEDS: chlorproMAZINE HCl 100 MG TABLET PO (20:04)
[2021-07-06 06:00] VITALS: BP 126/69; PULSE 101; RESP 18; TEMP 36.3; O2SAT 97
--- NOTE | 2021-07-06 15:30 | P.PNPSI_ITS ---
Subjective Subjective Date of Service: 07/06/21 Reason For Visit: Schizophrenia Subjective Notes: Section 8 Interim History: Vibra is too restrictive and too much for me. Respite is a better match. Pt discussed current concerns including discharge planning, obtaining a PO Box for mail transfer, psychotherapy during in pt admission, use of cell phone and speak ers in his room and concerns about upcoming court date of 07/15. Discussed his SAD sx, and clarifies that he had had jody but has never been manic-these symptoms were pent up anger and I used to black out when I was under too much stress. Medication Compliance: Yes Side effects from medications: No Attending Groups: Yes Review of Systems Acute medical concerns: No Medical Review of Systems: unchanged Review of Systems Review of Systems Yes all other systems are reviewed and are negative Reports behavioral changes Psychiatric: Reports behavioral changes, Reports auditory hallucinations, Reports irritability, Reports anhedonia, Reports mood swings, Reports paranoia and Reports suicidal ideation (denies) Mental Status Exam Mental Status Exam Patient Appearance: Appropriate Patient Orientation: Person, Place, Time and Situation Level of Consciousness: Alert Patient Behavior: Talkative, Distractible and Good Eye Contact Mood Description: Constricted Affect Description: Constricted Patient Cognition Impaired: No Ability to Follow Directions: Good Speech Pattern: Spontaneous Speech, Soft-Spoken and Cofabulation Memory Description: Remote Impaired and Episodic Impaired Hallucinations: Auditory and Visual Delusions: Paranoid Ideation and Grandiose (at times) Perceptual Disturbances: Depersonalization and Derealization Thought Process: Illogical and Distracted Thought Content: positive for Perseveration, positive for Thought Blocking and p ositive for Suicidal Ideation (denies) Depressive Symptoms: Thoughts of /Suicide (denies) and Low Self Esteem Abnormal Motor Activity Signs and Symptoms: Restlessness Judgement: Poor Diagnostics Vital Signs (24Hr): Vital Signs - 24 hr 07/05/21 17:17 07/06/21 06:00 Temperature 98.6 F 97.4 F Pulse Rate 92 101 H Respiratory Rate 18 18 Blood Pressure 128/71 126/69 Pulse Oximetry 99 97 BMI result Body Mass Index 28.0 Labs Results: 07/01/21 08:13 07/01/21 08:13 Imaging Radiology Impressions: ITS Impressions Face X-Ray 04/21/21 15:29 IMPRESSION: No fracture seen. Orbit X-Ray 04/21/21 15:29 IMPRESSION: No fracture seen. Cervical Spine CT 04/24/21 22:24 IMPRESSION: No evidence of acute intracranial abnormalities. No evidence of acute maxillofacial fractures. However, evaluation of the inferior mandibular body is limited due to motion and although no definite fractures or surrounding soft tissue thickening/hematoma are identified, clinical correlation for pain/tenderness in the inferior mandible should be obtained as this is suboptimally assessed in this study. No acute cervical fractures or malalignment. Face CT 04/24/21 22:24 IMPRESSION: No evidence of acute intracranial abnormalities. No evidence of acute maxillofacial fractures. However, evaluation of the inferior mandibular body is limited due to motion and although no definite fractures or surrounding soft tissue thickening/hematoma are identified, clinical correlation for pain/tenderness in the inferior mandible should be obtained as this is suboptimally assessed in this study. No acute cervical fractures or malalignment. Head CT 04/24/21 22:24 IMPRESSION: No evidence of acute intracranial abnormalities. No evidence of acute maxillofacial fractures. However, evaluation of the inferior mandibular body is limited due to motion and although no definite fractures or surrounding soft tissue thickening/hematoma are identified, clinical correlation for pain/tenderness in the inferior mandible should be obtained as this is suboptimally assessed in this study. No acute cervical fractures or malalignment. Toe X-Ray 06/22/21 19:00 IMPRESSION: No appreciable phalangeal fractures of the right toes. Medications Medications Current Medications Acetaminophen (Acetaminophen 325 Mg Tablet) 650 mg PO Q6H PRN PRN Reason: Headache/Pain Mild Scale (1-3) Last Admin: 06/23/21 19:51 Dose: 650 mg Documented by: Al Hydroxide/Mg Hydroxide (Magnesium Hydrox/Alum Hydrox 30 Ml Oral.Susp) 30 ml PO Q6H PRN PRN Reason: Heartburn/Nausea Last Admin: 05/27/21 00:13 Dose: 30 ml Documented by: Benztropine Mesylate (Benztropine Mesylate 1 Mg Tablet) 1 mg PO TID PRN PRN Reason: Extrapyramidal Effects Chlorpromazine HCl (Chlorpromazine Hcl 100 Mg Tablet) 100 mg PO BID PRN PRN Reason: psychotic agitation Last Admin: 06/29/21 21:04 Dose: 100 mg Documented by: Chlorpromazine HCl (Chlorpromazine Hcl 100 Mg Tablet) 100 mg PO BEDTIME MARGAUX Last Admin: 07/05/21 20:04 Dose: 100 mg Documented by: Chlorpromazine HCl (Chlorpromazine Hcl 50 Mg/2 Ml Ampul) 100 mg IM BEDTIME PRN PRN Reason: if pt refuses PO per court order Diphenhydramine HCl (Diphenhydramine Hcl 25 Mg Tablet) 50 mg PO Q4H PRN PRN Reason: agitation Last Admin: 06/22/21 23:53 Dose: 50 mg Documented by: Hydroxyzine HCl (Hydroxyzine Hcl 25 Mg Tablet) 25 mg PO QID PRN PRN Reason: Anxiety Last Admin: 05/21/21 21:14 Dose: 25 mg Documented by: Ibuprofen (Ibuprofen 600 Mg Tablet) 600 mg PO Q4H PRN PRN Reason: Pain, Moderate (Pain Scale 4-6 Last Admin: 05/22/21 07:13 Dose: 600 mg Documented by: Lidocaine (Lidocaine 4 % Patch Adh..Patch) 1 patch TRANSDERMA DAILY PRN; Protocol PRN Reason: cervical pain Last Admin: 06/20/21 07:24 Dose: 1 patch Documented by: Magnesium Hydroxide (Milk Of Magnesia 30 Ml Oral.Susp) 30 ml PO DAILY PRN PRN Reason: Constipation Nicotine (Nicotine 21 Mg Patch.Td24) 21 mg TRANSDERMA DAILY PRN PRN Reason: smoking cessation Nicotine Polacrilex (Nicotine Polacrilex 2 Mg Gum) 4 mg BUCCAL Q2H PRN PRN Reason: Nicotine Cravings Paliperidone Palmitate (Paliperidone Palmitate 234 Mg/1.5 Ml Syringe) 234 mg IM Q30D [facility] Last Admin: 06/21/21 12:06 Dose: 234 mg Documented by: Trazodone HCl (Trazodone Hcl 50 Mg Tablet) 50 mg PO BEDTIME PRN PRN Reason: Insomnia Allergies Allergies Allergy/AdvReac Type Severity Reaction Status Date / Time haloperidol [From HALDOL] Allergy Severe DYSTONIA Verified 04/19/21 06:28 ziprasidone [From GEODON] Allergy Severe DYSTONIA Verified 04/19/21 06:28 Assessment & Plan Assessment & Plan (1) Schizoaffective disorder, bipolar type: Status: Acute Code(s): F25.0 - Schizoaffective disorder, bipolar type Plan 05/07/21 Invega 6 mg 05/08. Continue Thorazine prn. (pt required IM back up on 05/07/21) 05/08/21 Continue current plan of care. 05/09/21: Ct w plan per [facility] order 05/10/21: Ct Rx plan 05/11/21: Continue Invega titration. 05/12/21 Pt tolerating Invega. Will begin Sustenna on 05/13. 05/13/21 Sustanna given, tolerated. Support, educate, integrate into milieu for added support. 05/14/21 Tolerating Sustenna. Calmer, more focused today. Asking for help with legal issues, attempting to organize his responsibilities 05/15/21 Continue current plan. 05/16/21 Continue current plan 05/17/21 Continue current plan 05/18/21 Follow up with probation-pt agrees and signed JEANNETTE Second Sustenna injection 05/21. Tolerating with breakthrough sx with PO as well. 05/19/21 Team/Peers report evening/night agitation Depakote 500 mg ER HS 05/20/21 Continue current regime Scheduled Invega injection for 05/21 Continue to attempt alliance building, education, support 05/21/21 Continue current regimen, no changes to medication, will monitor for benefit on invega sustenna COKER. Still taking PO invega. Has not been taking PO depakote, so will not order a level. 05/22/21 Continue current regimen, pt is tolerating invega sustenna well. Not taking depakote. Appropriate on the unit. 05/23/21: No changes to above med plan. 05/24/21: No changes to above plan, continue PO invega until invega sustenna reaches s teady state. Pt somewhat intrusive with high fiving staff but redirectable. 05/26/21: Continue current plan. Vibra application 05/27/21 Pt has been refusing Depakote at hs with resulting poor sleep. Will give Chlorpromazine IM if Depakote is refused. 05/28/21 Continue current plan Labs 06/01/20. 05/29/21 Continue with current plan 05/30/21 continue with current treatment plan 05/31/21 continue with current treatment plan 06/01/21 Discontinue Depakote-pt prefers Chlorpromazine at HS-50 mg as he reports it is more helpful with sleep quality assistance. 06/03/21: Education, support. Vibra application. 06/04/21: Increase Chlorpromazine to 75 mg HS to assist with mgt of lability. 06/05/21: Continue current regime 06/06 continue current medications 06/09/21: Continue current plan of care Support, Educate, Inform, encourage pt's interests. 06/11/21: More engaged in milieu today. Attentive to ADL's with team encouragement. Continue plan of care. 06/12/21: Continue current regime. Sustenna due 06/21/21. 06/13/21 - 06/14/21 No changes Continue with current treatment plan 06/15/21 Continue current plan of care Invega Sustenna injection due 06/21/21. 06/16/21 Continue current plan of care. 06/17/21 Continue current plan of care Increase Chlorpromazine to 100 mg HS Discussed tapering PO Invega most likely between second and third injection of COKER. Discussed with pt treating his mood. At this time he would like more time to assess effects of therapy and COKER. 06/18/21 Continue current plan. Offer support and structure 06/19/10 Sustenna Injection 06/21. 06/20/21 No changes to the above 06/21/21 No change 06/23/21- pt without SI/HI/VH/AH, no overt delusional content reported. overly familiar with staff/asking multiple request but polite and able to be redirected. 06/26/21- Processing discussion of 06/25/21. Elopement risk Continue current plan of care. 06/29/21- Denies SE of COKER given 06/21. Continues to decline psychopharmacology intervention for mood symptoms-prefers to talk it out . Update diagnostics- EKG, CBC, CMP, TSH, Lipids, A1c, TSH, B12,Folate Pt has expressed interest in leaning to speak and write [place]-given resources so he may explore this interest. Support/Educate LT Plan: Vibra 06/30/21: continue current treatment plan. pt stable. 07/01/21: Continue current treatment plan. 07/02/21: Continue current treatment plan. Review of EKG changes, RBBB with [facility] [place] [facility], Dr. Murillo-. They report this finding to be chronic, not in need of further eval or consult. 07/03- continue current treatment plan. 07/04- no medication changes 07/06/21- Continue current plan of care. LTP-[facility]ra transfer I spent 25 minutes with the patient and/or on the patient floor today, greater than?50% of which was spent counseling/coordinating care. Reason for contiued inpatient stay Substantial Risk for: harm to self, harm to others, inability to function and rapid decompensation
[2021-07-06 18:00] VITALS: BP 132/81; PULSE 93; RESP 17; TEMP 36.9; O2SAT 98
[2021-07-06] MEDS: chlorproMAZINE HCl 100 MG TABLET PO (21:41)
[2021-07-07 16:30] VITALS: BP 135/76; PULSE 86; RESP 16; TEMP 36.6; O2SAT 98
--- NOTE | 2021-07-07 16:59 | HO.PSYCHPN ---
Subjective Subjective Date of Service: 07/07/21 Reason For Visit: Schizophrenia Subjective Notes: Section 8 Interim History: Asif discussed his reasoning for wanting respite vs Vibra. He discussed his concerns regarding the upcoming court date and the charges which worry him. He provided a context of the charges and discussed his rationale for believing the charges misrepresent his actions and intentions. Reports meds to be effective, without SE and he is satisfied with the current regime. Discussed mood sx and potential medication options to assist with sx mgt. Asif continues to want to work on these symptoms with psychotherapy. Medication Compliance: Yes Side effects from medications: No Attending Groups: Yes Review of Systems Acute medical concerns: No Medical Review of Systems: unchanged Review of Systems Review of Systems Yes all other systems are reviewed and are negative Reports behavioral changes Psychiatric: Reports behavioral changes, Reports auditory hallucinations, Reports irritability, Reports anhedonia, Reports mood swings, Reports paranoia and Reports suicidal ideation (denies) Mental Status Exam Mental Status Exam Patient Appearance: Appropriate Patient Orientation: Person, Place, Time and Situation Level of Consciousness: Alert Patient Behavior: Talkative, Distractible and Good Eye Contact Mood Description: Constricted Affect Description: Constricted Patient Cognition Impaired: No Ability to Follow Directions: Good Speech Pattern: Spontaneous Speech, Soft-Spoken and Cofabulation Memory Description: Remote Impaired and Episodic Impaired Hallucinations: Auditory and Visual Delusions: Paranoid Ideation and Grandiose (at times) Perceptual Disturbances: Depersonalization and Derealization Thought Process: Illogical and Distracted Thought Content: positive for Perseveration, positive for Thought Blocking and positive for Suicidal Ideation (denies) Depressive Symptoms: Thoughts of /Suicide (denies) and Low Self Esteem Abnormal Motor Activity Signs and Symptoms: Restlessness Judgement: Poor Diagnostics Vital Signs (24Hr): Vital Signs - 24 hr 07/06/21 18:00 07/07/21 16:30 Temperature 98.5 F 98 F Pulse Rate 93 86 Respiratory Rate 17 16 Blood Pressure 132/81 135/76 Pulse Oximetry 98 98 BMI result Body Mass Index 28.0 Labs Results: 07/01/21 08:13 07/01/21 08:13 Imaging Radiology Impressions: ITS Impressions Face X-Ray 04/21/21 15:29 IMPRESSION: No fracture seen. Orbit X-Ray 04/21/21 15:29 IMPRESSION: No fracture seen. Cervical Spine CT 04/24/21 22:24 IMPRESSION: No evidence of acute intracranial abnormalities. No evidence of acute maxillofacial fractures. However, evaluation of the inferior mandibular body is limited due to motion and although no definite fractures or surrounding soft tissue thickening/hematoma are identified, clinical correlation for pain/tenderness in the inferior mandible should be obtained as this is suboptimally assessed in this study. No acute cervical fractures or malalignment. Face CT 04/24/21 22:24 IMPRESSION: No evidence of acute intracranial abnormalities. No evidence of acute maxillofacial fractures. However, evaluation of the inferior mandibular body is limited due to motion and although no definite fractures or surrounding soft tissue thickening/hematoma are identified, clinical correlation for pain/tenderness in the inferior mandible should be obtained as this is suboptimally assessed in this study. No acute cervical fractures or malalignment. Head CT 04/24/21 22:24 IMPRESSION: No evidence of acute intracranial abnormalities. No evidence of acute maxillofacial fractures. However, evaluation of the inferior mandibular body is limited due to motion and although no definite fractures or surrounding soft tissue thickening/hematoma are identified, clinical correlation for pain/tenderness in the inferior mandible should be obtained as this is suboptimally assessed in this study. No acute cervical fractures or malalignment. Toe X-Ray 06/22/21 19:00 IMPRESSION: No appreciable phalangeal fractures of the right toes. Medications Medications Current Medications Acetaminophen (Acetaminophen 325 Mg Tablet) 650 mg PO Q6H PRN PRN Reason: Headache/Pain Mild Scale (1-3) Last Admin: 06/23/21 19:51 Dose: 650 mg Documented by: Al Hydroxide/Mg Hydroxide (Magnesium Hydrox/Alum Hydrox 30 Ml Oral.Susp) 30 ml PO Q6H PRN PRN Reason: Heartburn/Nausea Last Admin: 05/27/21 00:13 Dose: 30 ml Documented by: Benztropine Mesylate (Benztropine Mesylate 1 Mg Tablet) 1 mg PO TID PRN PRN Reason: Extrapyramidal Effects Chlorpromazine HCl (Chlorpromazine Hcl 100 Mg Tablet) 100 mg PO BID PRN PRN Reason: psychotic agitation Last Admin: 06/29/21 21:04 Dose: 100 mg Documented by: Chlorpromazine HCl (Chlorpromazine Hcl 100 Mg Tablet) 100 mg PO BEDTIME MARGAUX Last Admin: 07/06/21 21:41 Dose: 100 mg Documented by: Chlorpromazine HCl (Chlorpromazine Hcl 50 Mg/2 Ml Ampul) 100 mg IM BEDTIME PRN PRN Reason: if pt refuses PO per court order Diphenhydramine HCl (Diphenhydramine Hcl 25 Mg Tablet) 50 mg PO Q4H PRN PRN Reason: agitation Last Admin: 06/22/21 23:53 Dose: 50 mg Documented by: Hydroxyzine HCl (Hydroxyzine Hcl 25 Mg Tablet) 25 mg PO QID PRN PRN Reason: Anxiety Last Admin: 05/21/21 21:14 Dose: 25 mg Documented by: Ibuprofen (Ibuprofen 600 Mg Tablet) 600 mg PO Q4H PRN PRN Reason: Pain, Moderate (Pain Scale 4-6 Last Admin: 05/22/21 07:13 Dose: 600 mg Documented by: Lidocaine (Lidocaine 4 % Patch Adh..Patch) 1 patch TRANSDERMA DAILY PRN; Protocol PRN Reason: cervical pain Last Admin: 06/20/21 07:24 Dose: 1 patch Documented by: Magnesium Hydroxide (Milk Of Magnesia 30 Ml Oral.Susp) 30 ml PO DAILY PRN PRN Reason: Constipation Nicotine (Nicotine 21 Mg Patch.Td24) 21 mg TRANSDERMA DAILY PRN PRN Reason: smoking cessation Nicotine Polacrilex (Nicotine Polacrilex 2 Mg Gum) 4 mg BUCCAL Q2H PRN PRN Reason: Nicotine Cravings Paliperidone Palmitate (Paliperidone Palmitate 234 Mg/1.5 Ml Syringe) 234 mg IM Q30D MARGAUX Last Admin: 06/21/21 12:06 Dose: 234 mg Documented by: Trazodone HCl (Trazodone Hcl 50 Mg Tablet) 50 mg PO BEDTIME PRN PRN Reason: Insomnia Allergies Allergies Allergy/AdvReac Type Severity Reaction Status Date / Time haloperidol [From HALDOL] Allergy Severe DYSTONIA Verified 04/19/21 06:28 ziprasidone [From GEODON] Allergy Severe DYSTONIA Verified 04/19/21 06:28 Assessment & Plan Assessment & Plan (1) Schizoaffective disorder, bipolar type: Status: Acute Code(s): F25.0 - Schizoaffective disorder, bipolar type Plan 05/07/21 Invega 6 mg 05/08. Continue Thorazine prn. (pt required IM back up on 05/07/21) 05/08/21 Continue current plan of care. 05/09/21: Ct w plan per [facility] order 05/10/21: Ct Rx plan 05/11/21: Continue Invega titration. 05/12/21 Pt tolerating Invega. Will begin Sustenna on 05/13. 05/13/21 Sustanna given, tolerated. Support, educate, integrate into milieu for added support. 05/14/21 Tolerating Sustenna. Calmer, more focused today. Asking for help with legal issues, attempting to organize his responsibilities 05/15/21 Continue current plan. 05/16/21 Continue current plan 05/17/21 Continue current plan 05/18/21 Follow up with probation-pt agrees and signed JEANNETTE Second Sustenna injection 05/21. Tolerating with breakthrough sx with PO as well. 05/19/21 Team/Peers report evening/night agitation Depakote 500 mg ER HS 05/20/21 Continue current regime Scheduled Invega injection for 05/21 Continue to attempt alliance building, education, support 05/21/21 Continue current regimen, no changes to medication, will monitor for benefit on invega sustenna COKER. Still taking PO invega. Has not been taking PO depakote, so will not order a level. 05/22/21 Continue current regimen, pt is tolerating invega sustenna well. Not taking depakote. Appropriate on the unit. 05/23/21: No changes to above med plan. 05/24/21: No changes to above plan, continue PO invega until invega sustenna reaches steady state. Pt somewhat intrusive with high fiving staff but redirectable. 05/26/21: Continue current plan. Vibra application 05/27/21 Pt has been refusing Depakote at hs with resulting poor sleep. Will give Chlorpromazine IM if Depakote is refused. 05/28/21 Continue current plan Labs 06/01/20. 05/29/21 Continue with current plan 05/30/21 continue with current treatment plan 05/31/21 continue with current treatment plan 06/01/21 Discontinue Depakote-pt prefers Chlorpromazine at HS-50 mg as he reports it is more helpful with sleep quality assistance. 06/03/21: Education, support. Vibra application. 06/04/21: Increase Chlorpromazine to 75 mg HS to assist with mgt of lability. 06/05/21: Continue current regime 06/06 continue current medications 06/09/21: Continue current plan of care Support, Educate, Inform, encourage pt's interests. 06/11/21: More engaged in milieu today. Attentive to ADL's with team encouragement. Continue plan of care. 06/12/21: Continue current regime. Sustenna due 06/21/21. 06/13/21 - 06/14/21 No changes Continue with current treatment plan 06/15/21 Continue current plan of care Invega Sustenna injection due 06/21/21. 06/16/21 Continue current plan of care. 06/17/21 Continue current plan of care Increase Chlorpromazine to 100 mg HS Discussed tapering PO Invega most likely between second and third injection of COKER. Discussed with pt treating his mood. At this time he would like more time to assess effects of therapy and COKER. 06/18/21 Continue current plan. Offer support and structure 06/19/10 Sustenna Injection 06/21. 06/20/21 No changes to the above 06/21/21 No change 06/23/21- pt without SI/HI/VH/AH, no overt delusional content reported. overly familiar with staff/asking multiple request but polite and able to be redirected. 06/26/21- Processing discussion of 06/25/21. Elopement risk Continue current plan of care. 06/29/21- Denies SE of COKER given 06/21. Continues to decline psychopharmacology intervention for mood symptoms-prefers to talk it out . Update diagnostics- EKG, CBC, CMP, TSH, Lipids, A1c, TSH, B12,Folate Pt has expressed interest in leaning to speak and write Chinese-given resources so he may explore this interest. Support/Educate LT Plan: Vibra 06/30/21: continue current treatment plan. pt stable. 07/01/21: Continue current treatment plan. 07/02/21: Continue current treatment plan. Review of EKG changes, RBBB with [facility] [place] [facility], Dr. Murillo-. They report this finding to be chronic, not in need of further eval or consult. 2/4- continue current treatment plan. 07/04- no medication changes 07/06/21- Continue current plan of care. LTP-Vibra transfer 07/07/21: Continue current plan of care. Assist pt at his request in addressing his financial concerns, need for PO Box assignment and issues with social security I spent 25 minutes with the patient and/or on the patient floor today, greater than?50% of which was spent counseling/coordinating care. Patient educated on: therapeutic strategies Informed Consent: further education needed Reason for contiued inpatient stay Substantial Risk for: harm to self, harm to others, inability to function and rapid decompensation
[2021-07-07] MEDS: chlorproMAZINE HCl 100 MG TABLET PO (19:45)
[2021-07-08 06:00] VITALS: BP 112/79; PULSE 96; TEMP 36.8; O2SAT 99
--- NOTE | 2021-07-08 14:55 | HO.PSYCHPN ---
Subjective Subjective Date of Service: 07/08/21 Reason For Visit: Schizophrenia Subjective Notes: Section 8 Healthcare Proxy: No Interim History: Patient somewhat isolative in his room no significant complaints when seen was not threatening has been somewhat withdrawn dysphoric Medication Compliance: Yes Mental Status Exam Mental Status Exam Patient Appearance: Appropriate Patient Orientation: Person, Place, Time and Situation Level of Consciousness: Alert Patient Behavior: Guarded, Distractible and Good Eye Contact Mood Description: Constricted Affect Description: Constricted Patient Cognition Impaired: No Ability to Follow Directions: Good Speech Pattern: Soft-Spoken Memory Description: Remote Impaired and Episodic Impaired Hallucinations: Auditory and Visual Delusions: Paranoid Ideation and Grandiose (at times) Perceptual Disturbances: Depersonalization and Derealization Thought Process: Illogical and Distracted Thought Content: positive for Perseveration, positive for Thought Blocking and positive for Suicidal Ideation (denies) Depressive Symptoms: Thoughts of /Suicide (denies) and Low Self Esteem Abnormal Motor Activity Signs and Symptoms: Restlessness Judgement: Poor Diagnostics Vital Signs (24Hr): Vital Signs - 24 hr 07/07/21 16:30 07/08/21 06:00 Temperature 98 F 98.2 F Pulse Rate 86 96 Respiratory Rate 16 Blood Pressure 135/76 112/79 Pulse Oximetry 98 99 BMI result Body Mass Index 28.0 Labs Results: 07/01/21 08:13 07/01/21 08:13 Imaging Radiology Impressions: ITS Impressions Face X-Ray 04/21/21 15:29 IMPRESSION: No fracture seen. Orbit X-Ray 04/21/21 15:29 IMPRESSION: No fracture seen. Cervical Spine CT 04/24/21 22:24 IMPRESSION: No evidence of acute intracranial abnormalities. No evidence of acute maxillofacial fractures. However, evaluation of the inferior mandibular body is limited due to motion and although no definite fractures or surrounding soft tissue thickening/hematoma are identified, clinical correlation for pain/tenderness in the inferior mandible should be obtained as this is suboptimally assessed in this study. No acute cervical fractures or malalignment. Face CT 04/24/21 22:24 IMPRESSION: No evidence of acute intracranial abnormalities. No evidence of acute maxillofacial fractures. However, evaluation of the inferior mandibular body is limited due to motion and although no definite fractures or surrounding soft tissue thickening/hematoma are identified, clinical correlation for pain/tenderness in the inferior mandible should be obtained as this is suboptimally assessed in this study. No acute cervical fractures or malalignment. Head CT 04/24/21 22:24 IMPRESSION: No evidence of acute intracranial abnormalities. No evidence of acute maxillofacial fractures. However, evaluation of the inferior mandibular body is limited due to motion and although no definite fractures or surrounding soft tissue thickening/hematoma are identified, clinical correlation for pain/tenderness in the inferior mandible should be obtained as this is suboptimally assessed in this study. No acute cervical fractures or malalignment. Toe X-Ray 06/22/21 19:00 IMPRESSION: No appreciable phalangeal fractures of the right toes. Medications Medications Current Medications Acetaminophen (Acetaminophen 325 Mg Tablet) 650 mg PO Q6H PRN PRN Reason: Headache/Pain Mild Scale (1-3) Last Admin: 06/23/21 19:51 Dose: 650 mg Documented by: Al Hydroxide/Mg Hydroxide (Magnesium Hydrox/Alum Hydrox 30 Ml Oral.Susp) 30 ml PO Q6H PRN PRN Reason: Heartburn/Nausea Last Admin: 05/27/21 00:13 Dose: 30 ml Documented by: Benztropine Mesylate (Benztropine Mesylate 1 Mg Tablet) 1 mg PO TID PRN PRN Reason: Extrapyramidal Effects Chlorpromazine HCl (Chlorpromazine Hcl 100 Mg Tablet) 100 mg PO BID PRN PRN Reason: psychotic agitation Last Admin: 06/29/21 21:04 Dose: 100 mg Documented by: Chlorpromazine HCl (Chlorpromazine Hcl 100 Mg Tablet) 100 mg PO BEDTIME MARGAUX Last Admin: 07/07/21 19:45 Dose: 100 mg Documented by: Chlorpromazine HCl (Chlorpromazine Hcl 50 Mg/2 Ml Ampul) 100 mg IM BEDTIME PRN PRN Reason: if pt refuses PO per court order Diphenhydramine HCl (Diphenhydramine Hcl 25 Mg Tablet) 50 mg PO Q4H PRN PRN Reason: agitation Last Admin: 06/22/21 23:53 Dose: 50 mg Documented by: Hydroxyzine HCl (Hydroxyzine Hcl 25 Mg Tablet) 25 mg PO QID PRN PRN Reason: Anxiety Last Admin: 05/21/21 21:14 Dose: 25 mg Documented by: Ibuprofen (Ibuprofen 600 Mg Tablet) 600 mg PO Q4H PRN PRN Reason: Pain, Moderate (Pain Scale 4-6 Last Admin: 05/22/21 07:13 Dose: 600 mg Documented by: Lidocaine (Lidocaine 4 % Patch Adh..Patch) 1 patch TRANSDERMA DAILY PRN; Protocol PRN Reason: cervical pain Last Admin: 06/20/21 07:24 Dose: 1 patch Documented by: Magnesium Hydroxide (Milk Of Magnesia 30 Ml Oral.Susp) 30 ml PO DAILY PRN PRN Reason: Constipation Nicotine (Nicotine 21 Mg Patch.Td24) 21 mg TRANSDERMA DAILY PRN PRN Reason: smoking cessation Nicotine Polacrilex (Nicotine Polacrilex 2 Mg Gum) 4 mg BUCCAL Q2H PRN PRN Reason: Nicotine Cravings Paliperidone Palmitate (Paliperidone Palmitate 234 Mg/1.5 Ml Syringe) 234 mg IM Q30D MARGAUX Last Admin: 06/21/21 12:06 Dose: 234 mg Documented by: Trazodone HCl (Trazodone Hcl 50 Mg Tablet) 50 mg PO BEDTIME PRN PRN Reason: Insomnia Allergies Allergies Allergy/AdvReac Type Severity Reaction Status Date / Time haloperidol [From HALDOL] Allergy Severe DYSTONIA Verified 04/19/21 06:28 ziprasidone [From GEODON] Allergy Severe DYSTONIA Verified 04/19/21 06:28 Assessment & Plan Assessment & Plan (1) Schizoaffective disorder, bipolar type: Status: Acute Code(s): F25.0 - Schizoaffective disorder, bipolar type Plan 05/07/21 Invega 6 mg 05/08. Continue Thorazine prn. (pt required IM back up on 05/07/21) 05/08/21 Continue current plan of care. 05/09/21: Ct w plan per [facility] order 05/10/21: Ct Rx plan 05/11/21: Continue Invega titration. 05/12/21 Pt tolerating Invega. Will begin Sustenna on 05/13. 05/13/21 Sustanna given, tolerated. Support, educate, integrate into milieu for added support. 05/14/21 Tolerating Sustenna. Calmer, more focused today. Asking for help with legal issues, attempting to organize his responsibilities 05/15/21 Continue current plan. 05/16/21 Continue current plan 05/17/21 Continue current plan 05/18/21 Follow up with probation-pt agrees and signed JEANNETTE Second Sustenna injection 05/21. Tolerating with breakthrough sx with PO as well. 05/19/21 Team/Peers report evening/night agitation Depakote 500 mg ER HS 05/20/21 Continue current regime Scheduled Invega injection for 05/21 Continue to attempt alliance building, education, support 05/21/21 Continue current regimen, no changes to medication, will monitor for benefit on invega sustenna COKER. Still taking PO invega. Has not been taking PO depakote, so will not order a level. 05/22/21 Continue current regimen, pt is tolerating invega sustenna well. Not taking depakote. Appropriate on the unit. 05/23/21: No changes to above med plan. 05/24/21: No changes to above plan, continue PO invega until invega sustenna reaches steady state. Pt somewhat intrusive with high fiving staff but redirectable. 05/26/21: Continue current plan. [facility] application 05/27/21 Pt has been refusing Depakote at hs with resulting poor sleep. Will give Chlorpromazine IM if Depakote is refused. 05/28/21 Continue current plan Labs 06/01/20. 05/29/21 Continue with current plan 05/30/21 continue with current treatment plan 05/31/21 continue with current treatment plan 06/01/21 Discontinue Depakote-pt prefers Chlorpromazine at HS-50 mg as he reports it is more helpful with sleep quality assistance. 06/03/21: Education, support. [facility] application. 06/04/21: Increase Chlorpromazine to 75 mg HS to assist with mgt of lability. 06/05/21: Continue current regime 06/06 continue current medications 06/09/21: Continue current plan of care Support, Educate, Inform, encourage pt's interests. 06/11/21: More engaged in milieu today. Attentive to ADL's with team encouragement. Continue plan of care. 06/12/21: Continue current regime. Sustenna due 06/21/21. 06/13/21 - 06/14/21 No changes Continue with current treatment plan 06/15/21 Continue current plan of care Invega Sustenna injection due 06/21/21. 06/16/21 Continue current plan of care. 06/17/21 Continue current plan of care Increase Chlorpromazine to 100 mg HS Discussed tapering PO Invega most likely between second and third injection of COKER. Discussed with pt treating his mood. At this time he would like more time to assess effects of therapy and COKER. 06/18/21 Continue current plan. Offer support and structure 06/19/10 Sustenna Injection 06/21. 06/20/21 No changes to the above 06/21/21 No change 06/23/21- pt without SI/HI/VH/AH, no overt delusional content reported. overly familiar with staff/asking multiple request but polite and able to be redirected. 06/26/21- Processing discussion of 06/25/21. Elopement risk Continue current plan of care. 06/29/21- Denies SE of COKER given 06/21. Continues to decline psychopharmacology intervention for mood symptoms-prefers to talk it out . Update diagnostics- EKG, CBC, CMP, TSH, Lipids, A1c, TSH, B12,Folate Pt has expressed interest in leaning to speak and write [place]er-given resources so he may explore this interest. Support/Educate LT Plan: [facility] 06/30/21: continue current treatment plan. pt stable. 07/01/21: Continue current treatment plan. 07/02/21: Continue current treatment plan. Review of EKG changes, RBBB with [facility], Dr. Murillo-. They report this finding to be chronic, not in need of further eval or consult. 07/03- continue current treatment plan. 07/04- no medication changes 07/06/21- Continue current plan of care. LTP-[facility] transfer 07/07/21: Continue current plan of care. Assist pt at his request in addressing his financial concerns, need for PO Box assignment and issues with social security 07/08/21 Continue plan of care no change indicated at this time I spent minutes with the patient and/or on the patient floor today, greater than?50% of which was spent counseling/coordinating care. Reason for contiued inpatient stay Substantial Risk for: harm to others and rapid decompensation
[2021-07-08 17:30] VITALS: BP 115/78; PULSE 105; TEMP 36.7
[2021-07-08] MEDS: chlorproMAZINE HCl 100 MG TABLET PO (21:21)
[2021-07-09 06:00] VITALS: BP 113/75; PULSE 87; RESP 16; TEMP 36.9; O2SAT 98
--- NOTE | 2021-07-09 14:30 | HO.PSYCHPN ---
Subjective Subjective Date of Service: 07/09/21 Reason For Visit: Schizophrenia Subjective Notes: Section 8 Interim History: Asif discussed his friend, like a brother to me and how he will be an advocate for him. Mathew states his friend will visit and we can have a joint meeting because we are going to be getting an apartment so we can each have a room-mate. Mathew continues to discuss not wanting to attend [facility] and today reports that he thinks he will get along better if he moves to [place]. Discussed melatonin prn at which he would like to trial. Medication Compliance: Yes Side effects from medications: No Attending Groups: Yes Review of Systems Acute medical concerns: No Medical Review of Systems: unchanged Review of Systems Review of Systems Yes all other systems are reviewed and are negative Reports behavioral changes Psychiatric: Reports behavioral changes, Reports auditory hallucinations, Reports irritability, Reports anhedonia, Reports mood swings, Reports paranoia and Reports suicidal ideation (denies) Mental Status Exam Mental Status Exam Patient Appearance: Appropriate Patient Orientation: Person, Place, Time and Situation Level of Consciousness: Alert Patient Behavior: Guarded, Distractible and Good Eye Contact Mood Description: Constricted Affect Description: Constricted Patient Cognition Impaired: No Ability to Follow Directions: Good Speech Pattern: Soft-Spoken Memory Description: Remote Impaired and Episodic Impaired Hallucinations: Auditory and Visual Delusions: Paranoid Ideation and Grandiose (at times) Perceptual Disturbances: Depersonalization and Derealization Thought Process: Illogical and Distracted Thought Content: positive for Perseveration, positive for Thought Blocking and positive for Suicidal Ideation (denies) Depressive Symptoms: Thoughts of /Suicide (denies) and Low Self Esteem Abnormal Motor Activity Signs and Symptoms: Restlessness Judgement: Poor Diagnostics Vital Signs (24Hr): Vital Signs - 24 hr 07/08/21 17:30 07/09/21 06:00 Temperature 98.1 F 98.5 F Pulse Rate 105 H 87 Respiratory Rate 16 Blood Pressure 115/78 113/75 Pulse Oximetry 98 BMI result Body Mass Index 28.0 Labs Results: 07/01/21 08:13 07/01/21 08:13 Imaging Radiology Impressions: ITS Impressions Face X-Ray 04/21/21 15:29 IMPRESSION: No fracture seen. Orbit X-Ray 04/21/21 15:29 IMPRESSION: No fracture seen. Cervical Spine CT 04/24/21 22:24 IMPRESSION: No evidence of acute intracranial abnormalities. No evidence of acute maxillofacial fractures. However, evaluation of the inferior mandibular body is limited due to motion and although no definite fractures or surrounding soft tissue thickening/hematoma are identified, clinical correlation for pain/tenderness in the inferior mandible should be obtained as this is suboptimally assessed in this study. No acute cervical fractures or malalignment. Face CT 04/24/21 22:24 IMPRESSION: No evidence of acute intracranial abnormalities. No evidence of acute maxillofacial fractures. However, evaluation of the inferior mandibular body is limited due to motion and although no definite fractures or surrounding soft tissue thickening/hematoma are identified, clinical correlation for pain/tenderness in the inferior mandible should be obtained as this is suboptimally assessed in this study. No acute cervical fractures or malalignment. Head CT 04/24/21 22:24 IMPRESSION: No evidence of acute intracranial abnormalities. No evidence of acute maxillofacial fractures. However, evaluation of the inferior mandibular body is limited due to motion and although no definite fractures or surrounding soft tissue thickening/hematoma are identified, clinical correlation for pain/tenderness in the inferior mandible should be obtained as this is suboptimally assessed in this study. No acute cervical fractures or malalignment. Toe X-Ray 06/22/21 19:00 IMPRESSION: No appreciable phalangeal fractures of the right toes. Medications Medications Current Medications Acetaminophen (Acetaminophen 325 Mg Tablet) 650 mg PO Q6H PRN PRN Reason: Headache/Pain Mild Scale (1-3) Last Admin: 06/23/21 19:51 Dose: 650 mg Documented by: Al Hydroxide/Mg Hydroxide (Magnesium Hydrox/Alum Hydrox 30 Ml Oral.Susp) 30 ml PO Q6H PRN PRN Reason: Heartburn/Nausea Last Admin: 05/27/21 00:13 Dose: 30 ml Documented by: Benztropine Mesylate (Benztropine Mesylate 1 Mg Tablet) 1 mg PO TID PRN PRN Reason: Extrapyramidal Effects Chlorpromazine HCl (Chlorpromazine Hcl 100 Mg Tablet) 100 mg PO BID PRN PRN Reason: psychotic agitation Last Admin: 06/29/21 21:04 Dose: 100 mg Documented by: Chlorpromazine HCl (Chlorpromazine Hcl 100 Mg Tablet) 100 mg PO BEDTIME MARGAUX Last Admin: 07/08/21 21:21 Dose: 100 mg Documented by: Chlorpromazine HCl (Chlorpromazine Hcl 50 Mg/2 Ml Ampul) 100 mg IM BEDTIME PRN PRN Reason: if pt refuses PO per court order Diphenhydramine HCl (Diphenhydramine Hcl 25 Mg Tablet) 50 mg PO Q4H PRN PRN Reason: agitation Last Admin: 06/22/21 23:53 Dose: 50 mg Documented by: Hydroxyzine HCl (Hydroxyzine Hcl 25 Mg Tablet) 25 mg PO QID PRN PRN Reason: Anxiety Last Admin: 05/21/21 21:14 Dose: 25 mg Documented by: Ibuprofen (Ibuprofen 600 Mg Tablet) 600 mg PO Q4H PRN PRN Reason: Pain, Moderate (Pain Scale 4-6 Last Admin: 05/22/21 07:13 Dose: 600 mg Documented by: Lidocaine (Lidocaine 4 % Patch Adh..Patch) 1 patch TRANSDERMA DAILY PRN; Protocol PRN Reason: cervical pain Last Admin: 06/20/21 07:24 Dose: 1 patch Documented by: Magnesium Hydroxide (Milk Of Magnesia 30 Ml Oral.Susp) 30 ml PO DAILY PRN PRN Reason: Constipation Nicotine (Nicotine 21 Mg Patch.Td24) 21 mg TRANSDERMA DAILY PRN PRN Reason: smoking cessation Nicotine Polacrilex (Nicotine Polacrilex 2 Mg Gum) 4 mg BUCCAL Q2H PRN PRN Reason: Nicotine Cravings Paliperidone Palmitate (Paliperidone Palmitate 234 Mg/1.5 Ml Syringe) 234 mg IM Q30D MARGAUX Last Admin: 06/21/21 12:06 Dose: 234 mg Documented by: Trazodone HCl (Trazodone Hcl 50 Mg Tablet) 50 mg PO BEDTIME PRN PRN Reason: Insomnia Allergies Allergies Allergy/AdvReac Type Severity Reaction Status Date / Time haloperidol [From HALDOL] Allergy Severe DYSTONIA Verified 04/19/21 06:28 ziprasidone [From GEODON] Allergy Severe DYSTONIA Verified 04/19/21 06:28 Assessment & Plan Assessment & Plan (1) Schizoaffective disorder, bipolar type: Status: Acute Code(s): F25.0 - Schizoaffective disorder, bipolar type Plan 05/07/21 Invega 6 mg 05/08. Continue Thorazine prn. (pt required IM back up on 05/07/21) 05/08/21 Continue current plan of care. 05/09/21: Ct w plan per [facility] order 05/10/21: Ct Rx plan 05/11/21: Continue Invega titration. 05/12/21 Pt tolerating Invega. Will begin Sustenna on 05/13. 05/13/21 Sustanna given, tolerated. Support, educate, integrate into milieu for added support. 05/14/21 Tolerating Sustenna. Calmer, more focused today. Asking for help with legal issues, attempting to organize his responsibilities 05/15/21 Continue current plan. 05/16/21 Continue current plan 05/17/21 Continue current plan 05/18/21 Follow up with probation-pt agrees and signed JEANNETTE Second Sustenna injection 05/21. Tolerating with breakthrough sx with PO as well. 05/19/21 Team/Peers report evening/night agitation Depakote 500 mg ER HS 05/20/21 Continue current regime Scheduled Invega injection for 05/21 Continue to attempt alliance building, education, support 05/21/21 Continue current regimen, no changes to medication, will monitor for benefit on invega sustenna COKER. Still taking PO invega. Has not been taking PO depakote, so will not order a level. 05/22/21 Continue current regimen, pt is tolerating invega sustenna well. Not taking depakote. Appropriate on the unit. 05/23/21: No changes to above med plan. 05/24/21: No changes to above plan, continue PO invega until invega sustenna reaches steady state. Pt somewhat intrusive with high fiving staff but redirectable. 05/26/21: Continue current plan. [facility] application 05/27/21 Pt has been refusing Depakote at hs with resulting poor sleep. Will give Chlorpromazine IM if Depakote is refused. 05/28/21 Continue current plan Labs 06/01/20. 05/29/21 Continue with current plan 05/30/21 continue with current treatment plan 05/31/21 continue with current treatment plan 06/01/21 Discontinue Depakote-pt prefers Chlorpromazine at HS-50 mg as he reports it is more helpful with sleep quality assistance. 06/03/21: Education, support. [facility] application. 06/04/21: Increase Chlorpromazine to 75 mg HS to assist with mgt of lability. 06/05/21: Continue current regime 06/06 continue current medications 06/09/21: Continue current plan of care Support, Educate, Inform, encourage pt's interests. 06/11/21: More engaged in milieu today. Attentive to ADL's with team encouragement. Continue plan of care. 06/12/21: Continue current regime. Sustenna due 06/21/21. 06/13/21 - 06/14/21 No changes Continue with current treatment plan 06/15/21 Continue current plan of care Invega Sustenna injection due 06/21/21. 06/16/21 Continue current plan of care. 06/17/21 Continue current plan of care Increase Chlorpromazine to 100 mg HS Discussed tapering PO Invega most likely between second and third injection of COKER. Discussed with pt treating his mood. At this time he would like more time to assess effects of therapy and COKER. 06/18/21 Continue current plan. Offer support and structure 06/19/10 Sustenna Injection 06/21. 06/20/21 No changes to the above 06/21/21 No change 06/23/21- pt without SI/HI/VH/AH, no overt delusional content reported. overly familiar with staff/asking multiple request but polite and able to be redirected. 06/26/21- Processing discussion of 06/25/21. Elopement risk Continue current plan of care. 06/29/21- Denies SE of COKER given 06/21. Continues to decline psychopharmacology intervention for mood symptoms-prefers to talk it out . Update diagnostics- EKG, CBC, CMP, TSH, Lipids, A1c, TSH, B12,Folate Pt has expressed interest in leaning to speak and write [place]-given resources so he may explore this interest. Support/Educate LT Plan: [facility] 06/30/21: continue current treatment plan. pt stable. 07/01/21: Continue current treatment plan. 07/02/21: Continue current treatment plan. Review of EKG changes, [place]BB[place] with [facility] [place], Dr. Murillo-. They report this finding to be chronic, not in need of further eval or consult. 07/03- continue current treatment plan. 07/04- no medication changes 07/06/21- Continue current plan of care. LTP-[facility] transfer 07/07/21: Continue current plan of care. Assist pt at his request in addressing his financial concerns, need for PO Box assignment and issues with social security 07/08/21 Continue plan of care no change indicated at this time 07/09/21 Continue plan of care I spent 20 minutes with the patient and/or on the patient floor today, greater than?50% of which was spent counseling/coordinating care. Patient educated on: therapeutic strategies Informed Consent: further education needed Reason for contiued inpatient stay Substantial Risk for: harm to self, harm to others, inability to function and rapid decompensation
[2021-07-09 18:00] VITALS: BP 113/76; PULSE 97; RESP 20; TEMP 36.6; O2SAT 99
[2021-07-09] MEDS: chlorproMAZINE HCl 100 MG TABLET PO (20:19)
[2021-07-10 07:57] VITALS: BP 112/78; PULSE 91; TEMP 36.7; O2SAT 97
[2021-07-10] MEDS: Multivitamin TABLET 1 TAB PO (08:28)
--- NOTE | 2021-07-10 10:46 | HO.PSYCHPN ---
Subjective Subjective Date of Service: 07/10/21 Reason For Visit: Schizophrenia Subjective Notes: Section 8 Healthcare Proxy: No Guardianship: No Medical Problems Affecting Mental Status: No Interim History: Visable on the unit, quiet. Denies concerns to discuss today. Pending [facility] transfer. Medication Compliance: Yes Side effects from medications: No Attending Groups: Yes Review of Systems Acute medical concerns: No Medical Review of Systems: unchanged Review of Systems Review of Systems Yes all other systems are reviewed and are negative Reports behavioral changes Psychiatric: Reports behavioral changes, Reports auditory hallucinations, Reports irritability, Reports anhedonia, Reports mood swings, Reports paranoia and Reports suicidal ideation (denies) Mental Status Exam Mental Status Exam Patient Appearance: Appropriate Patient Orientation: Person, Place, Time and Situation Level of Consciousness: Alert Patient Behavior: Guarded, Distractible and Good Eye Contact Mood Description: Constricted Affect Description: Constricted Patient Cognition Impaired: No Ability to Follow Directions: Good Speech Pattern: Soft-Spoken Memory Description: Remote Impaired and Episodic Impaired Hallucinations: Auditory and Visual Delusions: Paranoid Ideation and Grandiose (at times) Perceptual Disturbances: Depersonalization and Derealization Thought Process: Illogical and Distracted Thought Content: positive for Perseveration, positive for Thought Blocking and positive for Suicidal Ideation (denies) Depressive Symptoms: Thoughts of /Suicide (denies) and Low Self Esteem Abnormal Motor Activity Signs and Symptoms: Restlessness Judgement: Poor Diagnostics Vital Signs (24Hr): Vital Signs - 24 hr 07/09/21 18:00 07/10/21 07:57 Temperature 97.8 F 98.0 F Pulse Rate 97 91 Respiratory Rate 20 Blood Pressure 113/76 112/78 Pulse Oximetry 99 97 BMI result Body Mass Index 28.0 Labs Results: 07/01/21 08:13 07/01/21 08:13 Imaging Radiology Impressions: ITS Impressions Face X-Ray 04/21/21 15:29 IMPRESSION: No fracture seen. Orbit X-Ray 04/21/21 15:29 IMPRESSION: No fracture seen. Cervical Spine CT 04/24/21 22:24 IMPRESSION: No evidence of acute intracranial abnormalities. No evidence of acute maxillofacial fractures. However, evaluation of the inferior mandibular body is limited due to motion and although no definite fractures or surrounding soft tissue thickening/hematoma are identified, clinical correlation for pain/tenderness in the inferior mandible should be obtained as this is suboptimally assessed in this study. No acute cervical fractures or malalignment. Face CT 04/24/21 22:24 IMPRESSION: No evidence of acute intracranial abnormalities. No evidence of acute maxillofacial fractures. However, evaluation of the inferior mandibular body is limited due to motion and although no definite fractures or surrounding soft tissue thickening/hematoma are identified, clinical correlation for pain/tenderness in the inferior mandible should be obtained as this is suboptimally assessed in this study. No acute cervical fractures or malalignment. Head CT 04/24/21 22:24 IMPRESSION: No evidence of acute intracranial abnormalities. No evidence of acute maxillofacial fractures. However, evaluation of the inferior mandibular body is limited due to motion and although no definite fractures or surrounding soft tissue thickening/hematoma are identified, clinical correlation for pain/tenderness in the inferior mandible should be obtained as this is suboptimally assessed in this study. No acute cervical fractures or malalignment. Toe X-Ray 06/22/21 19:00 IMPRESSION: No appreciable phalangeal fractures of the right toes. Medications Medications Current Medications Acetaminophen (Acetaminophen 325 Mg Tablet) 650 mg PO Q6H PRN PRN Reason: Headache/Pain Mild Scale (1-3) Last Admin: 06/23/21 19:51 Dose: 650 mg Documented by: Al Hydroxide/Mg Hydroxide (Magnesium Hydrox/Alum Hydrox 30 Ml Oral.Susp) 30 ml PO Q6H PRN PRN Reason: Heartburn/Nausea Last Admin: 05/27/21 00:13 Dose: 30 ml Documented by: Benztropine Mesylate (Benztropine Mesylate 1 Mg Tablet) 1 mg PO TID PRN PRN Reason: Extrapyramidal Effects Chlorpromazine HCl (Chlorpromazine Hcl 100 Mg Tablet) 100 mg PO BID PRN PRN Reason: psychotic agitation Last Admin: 06/29/21 21:04 Dose: 100 mg Documented by: Chlorpromazine HCl (Chlorpromazine Hcl 100 Mg Tablet) 100 mg PO BEDTIME [facility]GAUX Last Admin: 07/09/21 20:19 Dose: 100 mg Documented by: Chlorpromazine HCl (Chlorpromazine Hcl 50 Mg/2 Ml Ampul) 100 mg IM BEDTIME PRN PRN Reason: if pt refuses PO per court order Diphenhydramine HCl (Diphenhydramine Hcl 25 Mg Tablet) 50 mg PO Q4H PRN PRN Reason: agitation Last Admin: 06/22/21 23:53 Dose: 50 mg Documented by: Hydroxyzine HCl (Hydroxyzine Hcl 25 Mg Tablet) 25 mg PO QID PRN PRN Reason: Anxiety Last Admin: 05/21/21 21:14 Dose: 25 mg Documented by: Ibuprofen (Ibuprofen 600 Mg Tablet) 600 mg PO Q4H PRN PRN Reason: Pain, Moderate (Pain Scale 4-6 Last Admin: 05/22/21 07:13 Dose: 600 mg Documented by: Lidocaine (Lidocaine 4 % Patch Adh..Patch) 1 patch TRANSDERMA DAILY PRN; Protocol PRN Reason: cervical pain Last Admin: 06/20/21 07:24 Dose: 1 patch Documented by: Magnesium Hydroxide (Milk Of Magnesia 30 Ml Oral.Susp) 30 ml PO DAILY PRN PRN Reason: Constipation Melatonin (Melatonin 3 Mg Tablet) 3 mg PO BEDTIME PRN PRN Reason: Insomnia Multivitamins/Vitamin C (Multivitamin Tablet) 1 tab PO DAILY [facility] Last Admin: 07/10/21 08:28 Dose: 1 tab Documented by: Nicotine (Nicotine 21 Mg Patch.Td24) 21 mg TRANSDERMA DAILY PRN PRN Reason: smoking cessation Nicotine Polacrilex (Nicotine Polacrilex 2 Mg Gum) 4 mg BUCCAL Q2H PRN PRN Reason: Nicotine Cravings Paliperidone Palmitate (Paliperidone Palmitate 234 Mg/1.5 Ml Syringe) 234 mg IM Q30D [facility] Last Admin: 06/21/21 12:06 Dose: 234 mg Documented by: Trazodone HCl (Trazodone Hcl 50 Mg Tablet) 50 mg PO BEDTIME PRN PRN Reason: Insomnia Allergies Allergies Allergy/AdvReac Type Severity Reaction Status Date / Time haloperidol [From HALDOL] Allergy Severe DYSTONIA Verified 04/19/21 06:28 ziprasidone [From GEODON] Allergy Severe DYSTONIA Verified 04/19/21 06:28 Assessment & Plan Assessment & Plan (1) Schizoaffective disorder, bipolar type: Status: Acute Code(s): F25.0 - Schizoaffective disorder, bipolar type Plan 05/07/21 Invega 6 mg 05/08. Continue Thorazine prn. (pt required IM back up on 05/07/21) 05/08/21 Continue current plan of care. 05/09/21: Ct w plan per [facility] order 05/10/21: Ct Rx plan 05/11/21: Continue Invega titration. 05/12/21 Pt tolerating Invega. Will begin Sustenna on 05/13. 05/13/21 Sustanna given, tolerated. Support, educate, integrate into milieu for added support. 05/14/21 Tolerating Sustenna. Calmer, more focused today. Asking for help with legal issues, attempting to organize his responsibilities 05/15/21 Continue current plan. 05/16/21 Continue current plan 05/17/21 Continue current plan 05/18/21 Follow up with probation-pt agrees and signed JEANNETTE Second Sustenna injection 05/21. Tolerating with breakthrough sx with PO as well. 05/19/21 Team/Peers report evening/night agitation Depakote 500 mg ER HS 05/20/21 Continue current regime Scheduled Invega injection for 05/21 Continue to attempt alliance building, education, support 05/21/21 Continue current regimen, no changes to medication, will monitor for benefit on invega sustenna COKER. Still taking PO invega. Has not been taking PO depakote, so will not order a level. 05/22/21 Continue current regimen, pt is tolerating invega sustenna well. Not taking depakote. Appropriate on the unit. 05/23/21: No changes to above med plan. 05/24/21: No changes to above plan, continue PO invega until invega sustenna reaches steady state. Pt somewhat intrusive with high fiving staff but redirectable. 05/26/21: Continue current plan. [facility] application 05/27/21 Pt has been refusing Depakote at hs with resulting poor sleep. Will give Chlorpromazine IM if Depakote is refused. 05/28/21 Continue current plan Labs 06/01/20. 05/29/21 Continue with current plan 05/30/21 continue with current treatment plan 05/31/21 continue with current treatment plan 06/01/21 Discontinue Depakote-pt prefers Chlorpromazine at HS-50 mg as he reports it is more helpful with sleep quality assistance. 06/03/21: Education, support. [facility] application. 06/04/21: Increase Chlorpromazine to 75 mg HS to assist with mgt of lability. 06/05/21: Continue current regime 06/06 continue current medications 06/09/21: Continue current plan of care Support, Educate, Inform, encourage pt's interests. 06/11/21: More engaged in milieu today. Attentive to ADL's with team encouragement. Continue plan of care. 06/12/21: Continue current regime. Sustenna due 06/21/21. 06/13/21 - 06/14/21 No changes Continue with current treatment plan 06/15/21 Continue current plan of care Invega Sustenna injection due 06/21/21. 06/16/21 Continue current plan of care. 06/17/21 Continue current plan of care Increase Chlorpromazine to 100 mg HS Discussed tapering PO Invega most likely between second and third injection of COKER. Discussed with pt treating his mood. At this time he would like more time to assess effects of therapy and COKER. 06/18/21 Continue current plan. Offer support and structure 06/19/10 Sustenna Injection 06/21. 06/20/21 No changes to the above 06/21/21 No change 06/23/21- pt without SI/HI/VH/AH, no overt delusional content reported. overly familiar with staff/asking multiple request but polite and able to be redirected. 06/26/21- Processing discussion of 06/25/21. Elopement risk Continue current plan of care. 06/29/21- Denies SE of COKER given 06/21. Continues to decline psychopharmacology intervention for mood symptoms-prefers to talk it out . Update diagnostics- EKG, CBC, CMP, TSH, Lipids, A1c, TSH, B12,Folate Pt has expressed interest in leaning to speak and write Chinese-given resources so he may explore this interest. Support/Educate LT Plan: [facility] 06/30/21: continue current treatment plan. pt stable. 07/01/21: Continue current treatment plan. 07/02/21: Continue current treatment plan. Review of EKG changes, RBBB with [facility] [place] [facility], Dr. Murillo-. They report this finding to be chronic, not in need of further eval or consult. 07/03- continue current treatment plan. 07/04- no medication changes 07/06/21- Continue current plan of care. LTP-[facility] transfer 07/07/21: Continue current plan of care. Assist pt at his request in addressing his financial concerns, need for PO Box assignment and issues with social security 07/08/21 Continue plan of care no change indicated at this time 07/09/21 Continue plan of care 07/10/21 Continue plan of care I spent 15 minutes with the patient and/or on the patient floor today, greater than?50% of which was spent counseling/coordinating care. Informed Consent: understands Reason for contiued inpatient stay Substantial Risk for: harm to self, harm to others, inability to function and rapid decompensation
[2021-07-10 18:00] VITALS: RESP 18
[2021-07-10] MEDS: chlorproMAZINE HCl 100 MG TABLET PO (22:04)
[2021-07-11 08:30] VITALS: BP 117/78; PULSE 107; TEMP 36.8
--- NOTE | 2021-07-11 11:57 | HO.PSYCHPN ---
Subjective Subjective Date of Service: 07/11/21 Reason For Visit: Schizophrenia Interim History: Isolative today, however with multiple requests and needs from the team. Team report pt exhibited manipulative behavior when allowed to use his cell phone. Asif denies medication side effects He did report to team some abdominal discomfort, which when we met he reports has resolved. Medication Compliance: Yes Side effects from medications: No Attending Groups: Yes Review of Systems Acute medical concerns: No Medical Review of Systems: unchanged Review of Systems Review of Systems Yes all other systems are reviewed and are negative Reports behavioral changes Psychiatric: Reports behavioral changes, Reports auditory hallucinations, Reports irritability, Reports anhedonia, Reports mood swings, Reports paranoia and Reports suicidal ideation (denies) Mental Status Exam Mental Status Exam Patient Appearance: Appropriate Patient Orientation: Person, Place, Time and Situation Level of Consciousness: Alert Patient Behavior: Guarded, Distractible and Good Eye Contact Mood Description: Constricted Affect Description: Constricted Patient Cognition Impaired: No Ability to Follow Directions: Good Speech Pattern: Soft-Spoken Memory Description: Remote Impaired and Episodic Impaired Hallucinations: Auditory and Visual Delusions: Paranoid Ideation and Grandiose (at times) Perceptual Disturbances: Depersonalization and Derealization Thought Process: Illogical and Distracted Thought Content: positive for Perseveration, positive for Thought Blocking and positive for Suicidal Ideation (denies) Depressive Symptoms: Thoughts of /Suicide (denies) and Low Self Esteem Abnormal Motor Activity Signs and Symptoms: Restlessness Judgement: Poor Diagnostics Vital Signs (24Hr): Vital Signs - 24 hr 07/10/21 18:00 07/11/21 08:30 Temperature 98.2 F Pulse Rate 107 H Respiratory Rate 18 Blood Pressure 117/78 BMI result Body Mass Index 28.0 Labs Results: 07/01/21 08:13 07/01/21 08:13 Imaging Radiology Impressions: ITS Impressions Face X-Ray 04/21/21 15:29 IMPRESSION: No fracture seen. Orbit X-Ray 04/21/21 15:29 IMPRESSION: No fracture seen. Cervical Spine CT 04/24/21 22:24 IMPRESSION: No evidence of acute intracranial abnormalities. No evidence of acute maxillofacial fractures. However, evaluation of the inferior mandibular body is limited due to motion and although no definite fractures or surrounding soft tissue thickening/hematoma are identified, clinical correlation for pain/tenderness in the inferior mandible should be obtained as this is suboptimally assessed in this study. No acute cervical fractures or malalignment. Face CT 04/24/21 22:24 IMPRESSION: No evidence of acute intracranial abnormalities. No evidence of acute maxillofacial fractures. However, evaluation of the inferior mandibular body is limited due to motion and although no definite fractures or surrounding soft tissue thickening/hematoma are identified, clinical correlation for pain/tenderness in the inferior mandible should be obtained as this is suboptimally assessed in this study. No acute cervical fractures or malalignment. Head CT 04/24/21 22:24 IMPRESSION: No evidence of acute intracranial abnormalities. No evidence of acute maxillofacial fractures. However, evaluation of the inferior mandibular body is limited due to motion and although no definite fractures or surrounding soft tissue thickening/hematoma are identified, clinical correlation for pain/tenderness in the inferior mandible should be obtained as this is suboptimally assessed in this study. No acute cervical fractures or malalignment. Toe X-Ray 06/22/21 19:00 IMPRESSION: No appreciable phalangeal fractures of the right toes. Medications Medications Current Medications Acetaminophen (Acetaminophen 325 Mg Tablet) 650 mg PO Q6H PRN PRN Reason: Headache/Pain Mild Scale (1-3) Last Admin: 06/23/21 19:51 Dose: 650 mg Documented by: Al Hydroxide/Mg Hydroxide (Magnesium Hydrox/Alum Hydrox 30 Ml Oral.Susp) 30 ml PO Q6H PRN PRN Reason: Heartburn/Nausea Last Admin: 05/27/21 00:13 Dose: 30 ml Documented by: Benztropine Mesylate (Benztropine Mesylate 1 Mg Tablet) 1 mg PO TID PRN PRN Reason: Extrapyramidal Effects Chlorpromazine HCl (Chlorpromazine Hcl 100 Mg Tablet) 100 mg PO BID PRN PRN Reason: psychotic agitation Last Admin: 06/29/21 21:04 Dose: 100 mg Documented by: Chlorpromazine HCl (Chlorpromazine Hcl 100 Mg Tablet) 100 mg PO BEDTIME [facility] Last Admin: 07/10/21 22:04 Dose: 100 mg Documented by: Chlorpromazine HCl (Chlorpromazine Hcl 50 Mg/2 Ml Ampul) 100 mg IM BEDTIME PRN PRN Reason: if pt refuses PO per court order Diphenhydramine HCl (Diphenhydramine Hcl 25 Mg Tablet) 50 mg PO Q4H PRN PRN Reason: agitation Last Admin: 06/22/21 23:53 Dose: 50 mg Documented by: Hydroxyzine HCl (Hydroxyzine Hcl 25 Mg Tablet) 25 mg PO QID PRN PRN Reason: Anxiety Last Admin: 05/21/21 21:14 Dose: 25 mg Documented by: Ibuprofen (Ibuprofen 600 Mg Tablet) 600 mg PO Q4H PRN PRN Reason: Pain, Moderate (Pain Scale 4-6 Last Admin: 05/22/21 07:13 Dose: 600 mg Documented by: Lidocaine (Lidocaine 4 % Patch Adh..Patch) 1 patch TRANSDERMA DAILY PRN; Protocol PRN Reason: cervical pain Last Admin: 06/20/21 07:24 Dose: 1 patch Documented by: Magnesium Hydroxide (Milk Of Magnesia 30 Ml Oral.Susp) 30 ml PO DAILY PRN PRN Reason: Constipation Melatonin (Melatonin 3 Mg Tablet) 3 mg PO BEDTIME PRN PRN Reason: Insomnia Multivitamins/Vitamin C (Multivitamin Tablet) 1 tab PO DAILY [facility] Last Admin: 07/10/21 08:28 Dose: 1 tab Documented by: Nicotine (Nicotine 21 Mg Patch.Td24) 21 mg TRANSDERMA DAILY PRN PRN Reason: smoking cessation Nicotine Polacrilex (Nicotine Polacrilex 2 Mg Gum) 4 mg BUCCAL Q2H PRN PRN Reason: Nicotine Cravings Paliperidone Palmitate (Paliperidone Palmitate 234 Mg/1.5 Ml Syringe) 234 mg IM Q30D [facility] Last Admin: 06/21/21 12:06 Dose: 234 mg Documented by: Trazodone HCl (Trazodone Hcl 50 Mg Tablet) 50 mg PO BEDTIME PRN PRN Reason: Insomnia Allergies Allergies Allergy/AdvReac Type Severity Reaction Status Date / Time haloperidol [From HALDOL] Allergy Severe DYSTONIA Verified 04/19/21 06:28 ziprasidone [From GEODON] Allergy Severe DYSTONIA Verified 04/19/21 06:28 Assessment & Plan Assessment & Plan (1) Schizoaffective disorder, bipolar type: Status: Acute Code(s): F25.0 - Schizoaffective disorder, bipolar type Plan 05/07/21 Invega 6 mg 05/08. Continue Thorazine prn. (pt required IM back up on 05/07/21) 05/08/21 Continue current plan of care. 05/09/21: Ct w plan per [facility] order 05/10/21: Ct Rx plan 05/11/21: Continue Invega titration. 05/12/21 Pt tolerating Invega. Will begin Sustenna on 05/13. 05/13/21 Sustanna given, tolerated. Support, educate, integrate into milieu for added support. 05/14/21 Tolerating Sustenna. Calmer, more focused today. Asking for help with legal issues, attempting to organize his responsibilities 05/15/21 Continue current plan. 05/16/21 Continue current plan 05/17/21 Continue current plan 05/18/21 Follow up with probation-pt agrees and signed JEANNETTE Second Sustenna injection 05/21. Tolerating with breakthrough sx with PO as well. 05/19/21 Team/Peers report evening/night agitation Depakote 500 mg ER HS 05/20/21 Continue current regime Scheduled Invega injection for 05/21 Continue to attempt alliance building, education, support 05/21/21 Continue current regimen, no changes to medication, will monitor for benefit on invega sustenna COKER. Still taking PO invega. Has not been taking PO depakote, so will not order a level. 05/22/21 Continue current regimen, pt is tolerating invega sustenna well. Not taking depakote. Appropriate on the unit. 05/23/21: No changes to above med plan. 05/24/21: No changes to above plan, continue PO invega until invega sustenna reaches steady state. Pt somewhat intrusive with high fiving staff but redirectable. 05/26/21: Continue current plan. [facility] application 05/27/21 Pt has been refusing Depakote at hs with resulting poor sleep. Will give Chlorpromazine IM if Depakote is refused. 05/28/21 Continue current plan Labs 06/01/20. 05/29/21 Continue with current plan 05/30/21 continue with current treatment plan 05/31/21 continue with current treatment plan 06/01/21 Discontinue Depakote-pt prefers Chlorpromazine at HS-50 mg as he reports it is more helpful with sleep quality assistance. 06/03/21: Education, support. [facility] application. 06/04/21: Increase Chlorpromazine to 75 mg HS to assist with mgt of lability. 06/05/21: Continue current regime 06/06 continue current medications 06/09/21: Continue current plan of care Support, Educate, Inform, encourage pt's interests. 06/11/21: More engaged in milieu today. Attentive to ADL's with team encouragement. Continue plan of care. 06/12/21: Continue current regime. Sustenna due 06/21/21. 06/13/21 - 06/14/21 No changes Continue with current treatment plan 06/15/21 Continue current plan of care Invega Sustenna injection due 06/21/21. 06/16/21 Continue current plan of care. 06/17/21 Continue current plan of care Increase Chlorpromazine to 100 mg HS Discussed tapering PO Invega most likely between second and third injection of COKER. Discussed with pt treating his mood. At this time he would like more time to assess effects of therapy and COKER. 06/18/21 Continue current plan. Offer support and structure 06/19/10 Sustenna Injection 06/21. 06/20/21 No changes to the above 06/21/21 No change 06/23/21- pt without SI/HI/VH/AH, no overt delusional content reported. overly familiar with staff/asking multiple request but polite and able to be redirected. 06/26/21- Processing discussion of 06/25/21. Elopement risk Continue current plan of care. 06/29/21- Denies SE of COKER given 06/21. Continues to decline psychopharmacology intervention for mood symptoms-prefers to talk it out . Update diagnostics- EKG, CBC, CMP, TSH, Lipids, A1c, TSH, B12,Folate Pt has expressed interest in leaning to speak and write [place]-given resources so he may explore this interest. Support/Educate LT Plan: [facility] 06/30/21: continue current treatment plan. pt stable. 07/01/21: Continue current treatment plan. 07/02/21: Continue current treatment plan. Review of EKG changes, [place] [facility], Dr. Murillo-. They report this finding to be chronic, not in need of further eval or consult. 07/03- continue current treatment plan. 07/04- no medication changes 07/06/21- Continue current plan of care. LTP-[facility] transfer 07/07/21: Continue current plan of care. Assist pt at his request in addressing his financial concerns, need for PO Box assignment and issues with social security 07/08/21 Continue plan of care no change indicated at this time 07/09/21 Continue plan of care 07/10/21 Continue plan of care 07/11/21 Continue plan of care I spent 15 minutes with the patient and/or on the patient floor today, greater than?50% of which was spent counseling/coordinating care. Patient educated on: therapeutic strategies and medical condition Informed Consent: understands Reason for contiued inpatient stay Substantial Risk for: harm to self, harm to others, inability to function and rapid decompensation
[2021-07-11] MEDS: Multivitamin TABLET 1 TAB PO (14:49)
[2021-07-11] MEDS: chlorproMAZINE HCl 100 MG TABLET PO (21:54)
[2021-07-12] MEDS: Multivitamin TABLET 1 TAB PO (08:52)
--- NOTE | 2021-07-12 09:28 | HO.PSYCHPN ---
Subjective Subjective Date of Service: 07/12/21 Reason For Visit: Schizophrenia Subjective Notes: Section 8 Interim History: Quiet, angry, isolative, apathetic today. Met with tw and discussed that his impression is that we are all liars who do not care about his needs. States he expected to meet with a therapist on 07/11 from [facility] and he was forgotton, as usual . Discussed wanting to talk with someone who is not on M5 as he feels labeled and not free to leave as he pleases. Discussed parameters of his commitment which he dismissed- that is old and it is over. Reviewed dates of commitment. Discussed wanting to go to respite, to leave [place] and travel and feeling that discharge plans are not taking his plans into account. States he believes that his legal representation is secretly employed by the hospital to force him into [facility]. Education and support attempted. Unable to accept this. Blaming mother, court, housing, team, asks what is it that I am not understanding about this plan-there is no reason I should not be freed this minute Reviewed community concerns about behaviors, boundaries and [facility] being able to continue to work with pt on a safe transition plan to community to prevent re-hospitalization. Pt not accepting of this idea, calmly leaving the meeting without incident- he returned to emphasize that I am grateful for how I have been treated here, but you need to do what I want and you are not. Team reports difficulty with boundaries and limits on his telephone- I will do what I want. I am not doing this anymore . Medication Compliance: Yes Side effects from medications: No Attending Groups: Intermittent Review of Systems Acute medical concerns: No Medical Review of Systems: unchanged Review of Systems Review of Systems Yes all other systems are reviewed and are negative Reports behavioral changes Psychiatric: Reports behavioral changes, Reports auditory hallucinations, Reports irritability, Reports anhedonia, Reports mood swings, Reports paranoia and Reports suicidal ideation (denies) Mental Status Exam Mental Status Exam Patient Appearance: Appropriate Patient Orientation: Person, Place, Time and Situation Level of Consciousness: Alert Patient Behavior: Guarded, Distractible and Good Eye Contact Mood Description: Constricted and Angry Affect Description: Constricted and Angry Patient Cognition Impaired: No Ability to Follow Directions: Good Speech Pattern: Soft-Spoken Memory Description: Remote Impaired and Episodic Impaired Hallucinations: Auditory and Visual Delusions: Paranoid Ideation and Grandiose (at times) Perceptual Disturbances: Depersonalization and Derealization Thought Process: Illogical and Distracted Thought Content: positive for Perseveration, positive for Thought Blocking and positive for Suicidal Ideation (denies) Depressive Symptoms: Thoughts of /Suicide (denies) and Low Self Esteem Abnormal Motor Activity Signs and Symptoms: Restlessness Judgement: Poor Diagnostics Vital Signs (24Hr): BMI result Body Mass Index 28.0 Labs Results: 07/01/21 08:13 07/01/21 08:13 Imaging Radiology Impressions: ITS Impressions Face X-Ray 04/21/21 15:29 IMPRESSION: No fracture seen. Orbit X-Ray 04/21/21 15:29 IMPRESSION: No fracture seen. Cervical Spine CT 04/24/21 22:24 IMPRESSION: No evidence of acute intracranial abnormalities. No evidence of acute maxillofacial fractures. However, evaluation of the inferior mandibular body is limited due to motion and although no definite fractures or surrounding soft tissue thickening/hematoma are identified, clinical correlation for pain/tenderness in the inferior mandible should be obtained as this is suboptimally assessed in this study. No acute cervical fractures or malalignment. Face CT 04/24/21 22:24 IMPRESSION: No evidence of acute intracranial abnormalities. No evidence of acute maxillofacial fractures. However, evaluation of the inferior mandibular body is limited due to motion and although no definite fractures or surrounding soft tissue thickening/hematoma are identified, clinical correlation for pain/tenderness in the inferior mandible should be obtained as this is suboptimally assessed in this study. No acute cervical fractures or malalignment. Head CT 04/24/21 22:24 IMPRESSION: No evidence of acute intracranial abnormalities. No evidence of acute maxillofacial fractures. However, evaluation of the inferior mandibular body is limited due to motion and although no definite fractures or surrounding soft tissue thickening/hematoma are identified, clinical correlation for pain/tenderness in the inferior mandible should be obtained as this is suboptimally assessed in this study. No acute cervical fractures or malalignment. Toe X-Ray 06/22/21 19:00 IMPRESSION: No appreciable phalangeal fractures of the right toes. Medications Medications Current Medications Acetaminophen (Acetaminophen 325 Mg Tablet) 650 mg PO Q6H PRN PRN Reason: Headache/Pain Mild Scale (1-3) Last Admin: 06/23/21 19:51 Dose: 650 mg Documented by: Al Hydroxide/Mg Hydroxide (Magnesium Hydrox/Alum Hydrox 30 Ml Oral.Susp) 30 ml PO Q6H PRN PRN Reason: Heartburn/Nausea Last Admin: 05/27/21 00:13 Dose: 30 ml Documented by: Benztropine Mesylate (Benztropine Mesylate 1 Mg Tablet) 1 mg PO TID PRN PRN Reason: Extrapyramidal Effects Chlorpromazine HCl (Chlorpromazine Hcl 100 Mg Tablet) 100 mg PO BID PRN PRN Reason: psychotic agitation Last Admin: 06/29/21 21:04 Dose: 100 mg Documented by: Chlorpromazine HCl (Chlorpromazine Hcl 100 Mg Tablet) 100 mg PO BEDTIME MAGRAUX Last Admin: 07/11/21 21:54 Dose: 100 mg Documented by: Chlorpromazine HCl (Chlorpromazine Hcl 50 Mg/2 Ml Ampul) 100 mg IM BEDTIME PRN PRN Reason: if pt refuses PO per court order Diphenhydramine HCl (Diphenhydramine Hcl 25 Mg Tablet) 50 mg PO Q4H PRN PRN Reason: agitation Last Admin: 06/22/21 23:53 Dose: 50 mg Documented by: Hydroxyzine HCl (Hydroxyzine Hcl 25 Mg Tablet) 25 mg PO QID PRN PRN Reason: Anxiety Last Admin: 05/21/21 21:14 Dose: 25 mg Documented by: Ibuprofen (Ibuprofen 600 Mg Tablet) 600 mg PO Q4H PRN PRN Reason: Pain, Moderate (Pain Scale 4-6 Last Admin: 05/22/21 07:13 Dose: 600 mg Documented by: Lidocaine (Lidocaine 4 % Patch Adh..Patch) 1 patch TRANSDERMA DAILY PRN; Protocol PRN Reason: cervical pain Last Admin: 06/20/21 07:24 Dose: 1 patch Documented by: Magnesium Hydroxide (Milk Of Magnesia 30 Ml Oral.Susp) 30 ml PO DAILY PRN PRN Reason: Constipation Melatonin (Melatonin 3 Mg Tablet) 3 mg PO BEDTIME PRN PRN Reason: Insomnia Multivitamins/Vitamin C (Multivitamin Tablet) 1 tab PO DAILY MARGAUX Last Admin: 07/12/21 08:52 Dose: 1 tab Documented by: Nicotine (Nicotine 21 Mg Patch.Td24) 21 mg TRANSDERMA DAILY PRN PRN Reason: smoking cessation Nicotine Polacrilex (Nicotine Polacrilex 2 Mg Gum) 4 mg BUCCAL Q2H PRN PRN Reason: Nicotine Cravings Paliperidone Palmitate (Paliperidone Palmitate 234 Mg/1.5 Ml Syringe) 234 mg IM Q30D MARGAUX Last Admin: 06/21/21 12:06 Dose: 234 mg Documented by: Trazodone HCl (Trazodone Hcl 50 Mg Tablet) 50 mg PO BEDTIME PRN PRN Reason: Insomnia Allergies Allergies Allergy/AdvReac Type Severity Reaction Status Date / Time haloperidol [From HALDOL] Allergy Severe DYSTONIA Verified 04/19/21 06:28 ziprasidone [From GEODON] Allergy Severe DYSTONIA Verified 04/19/21 06:28 Assessment & Plan Assessment & Plan (1) Schizoaffective disorder, bipolar type: Status: Acute Code(s): F25.0 - Schizoaffective disorder, bipolar type Plan 05/07/21 Invega 6 mg 05/08. Continue Thorazine prn. (pt required IM back up on 05/07/21) 05/08/21 Continue current plan of care. 05/09/21: Ct w plan per [facility] order 05/10/21: Ct Rx plan 05/11/21: Continue Invega titration. 05/12/21 Pt tolerating Invega. Will begin Sustenna on 05/13. 05/13/21 Sustanna given, tolerated. Support, educate, integrate into milieu for added support. 05/14/21 Tolerating Sustenna. Calmer, more focused today. Asking for help with legal issues, attempting to organize his responsibilities 05/15/21 Continue current plan. 05/16/21 Continue current plan 05/17/21 Continue current plan 05/18/21 Follow up with probation-pt agrees and signed JEANNETTE Second Sustenna injection 05/21. Tolerating with breakthrough sx with PO as well. 05/19/21 Team/Peers report evening/night agitation Depakote 500 mg ER HS 05/20/21 Continue current regime Scheduled Invega injection for 05/21 Continue to attempt alliance building, education, support 05/21/21 Continue current regimen, no changes to medication, will monitor for benefit on invega sustenna COKER. Still taking PO invega. Has not been taking PO depakote, so will not order a level. 05/22/21 Continue current regimen, pt is tolerating invega sustenna well. Not taking depakote. Appropriate on the unit. 05/23/21: No changes to above med plan. 05/24/21: No changes to above plan, continue PO invega until invega sustenna reaches steady state. Pt somewhat intrusive with high fiving staff but redirectable. 05/26/21: Continue current plan. [facility] application 05/27/21 Pt has been refusing Depakote at hs with resulting poor sleep. Will give Chlorpromazine IM if Depakote is refused. 05/28/21 Continue current plan Labs 06/01/20. 05/29/21 Continue with current plan 05/30/21 continue with current treatment plan 05/31/21 continue with current treatment plan 06/01/21 Discontinue Depakote-pt prefers Chlorpromazine at HS-50 mg as he reports it is more helpful with sleep quality assistance. 06/03/21: Education, support. [facility]ra application. 06/04/21: Increase Chlorpromazine to 75 mg HS to assist with mgt of lability. 06/05/21: Continue current regime 06/06 continue current medications 06/09/21: Continue current plan of care Support, Educate, Inform, encourage pt's interests. 06/11/21: More engaged in milieu today. Attentive to ADL's with team encouragement. Continue plan of care. 06/12/21: Continue current regime. Sustenna due 06/21/21. 06/13/21 - 06/14/21 No changes Continue with current treatment plan 06/15/21 Continue current plan of care Invega Sustenna injection due 06/21/21. 06/16/21 Continue current plan of care. 06/17/21 Continue current plan of care Increase Chlorpromazine to 100 mg HS Discussed tapering PO Invega most likely between second and third injection of COKER. Discussed with pt treating his mood. At this time he would like more time to assess effects of therapy and COKER. 06/18/21 Continue current plan. Offer support and structure 06/19/10 Sustenna Injection 06/21. 06/20/21 No changes to the above 06/21/21 No change 06/23/21- pt without SI/HI/VH/AH, no overt delusional content reported. overly familiar with staff/asking multiple request but polite and able to be redirected. 06/26/21- Processing discussion of 06/25/21. Elopement risk Continue current plan of care. 06/29/21- Denies SE of COKER given 06/21. Continues to decline psychopharmacology intervention for mood symptoms-prefers to talk it out . Update diagnostics- EKG, CBC, CMP, TSH, Lipids, A1c, TSH, B12,Folate Pt has expressed interest in leaning to speak and write Kittitian-given resources so he may explore this interest. Support/Educate LT Plan: [facility] 06/30/21: continue current treatment plan. pt stable. 07/01/21: Continue current treatment plan. 07/02/21: Continue current treatment plan. Review of EKG changes, RBBB with [facility], Dr. Murillo-. They report this finding to be chronic, not in need of further eval or consult. 07/03- continue current treatment plan. 07/04- no medication changes 07/06/21- Continue current plan of care. LTP-V[facility] transfer 07/07/21: Continue current plan of care. Assist pt at his request in addressing his financial concerns, need for PO Box assignment and issues with social security 07/08/21 Continue plan of care no change indicated at this time 07/09/21 Continue plan of care 07/10/21 Continue plan of care 07/11/21 Continue plan of care 07/11/21 Continue plan of care I spent 25 minutes with the patient and/or on the patient floor today, greater than?50% of which was spent counseling/coordinating care. Patient educated on: diagnosis, medication risk/benefits and therapeutic strategies Informed Consent: does not understand Reason for contiued inpatient stay Substantial Risk for: harm to self, harm to others, inability to function and rapid decompensation
[2021-07-12 18:00] VITALS: BP 133/77; PULSE 117; RESP 16; TEMP 36.5; O2SAT 97
[2021-07-12] MEDS: chlorproMAZINE HCl 100 MG TABLET PO (21:24)
[2021-07-13] MEDS: Multivitamin TABLET 1 TAB PO (09:55)
[2021-07-13 15:00] VITALS: BP 120/74; PULSE 95; TEMP 36.8
--- NOTE | 2021-07-13 15:44 | HO.PSYCHPN ---
Subjective Subjective Date of Service: 07/13/21 Reason For Visit: Schizophrenia Subjective Notes: Section 8 Interim History: Mathew apologized for expressing anger yesterday. We discussed the need to express emotions openly, honestly and fully. Requested vaccination records. Applied to [facility] [email or web address] and they will forward to his cell a copy of his vaccination card. With team, he is focused on his phone and use of his phone. He is misinformed regarding policies of cell phone use and team consistently informs him of these, however, he does not appear to acknowledge. ADL's are poor. Medication Compliance: Yes Side effects from medications: No Attending Groups: Yes Review of Systems Acute medical concerns: No Medical Review of Systems: unchanged Review of Systems Review of Systems Yes all other systems are reviewed and are negative Reports behavioral changes Psychiatric: Reports behavioral changes, Reports auditory hallucinations, Reports irritability, Reports anhedonia, Reports mood swings, Reports paranoia and Reports suicidal ideation (denies) Mental Status Exam Mental Status Exam Patient Appearance: Appropriate Patient Orientation: Person, Place, Time and Situation Level of Consciousness: Alert Patient Behavior: Guarded, Distractible and Good Eye Contact Mood Description: Constricted and Angry Affect Description: Constricted and Angry Patient Cognition Impaired: No Ability to Follow Directions: Good Speech Pattern: Soft-Spoken Memory Description: Remote Impaired and Episodic Impaired Hallucinations: Auditory and Visual Delusions: Paranoid Ideation and Grandiose (at times) Perceptual Disturbances: Depersonalization and Derealization Thought Process: Illogical and Distracted Thought Content: positive for Perseveration, positive for Thought Blocking and positive for Suicidal Ideation (denies) Depressive Symptoms: Thoughts of /Suicide (denies) and Low Self Esteem Abnormal Motor Activity Signs and Symptoms: Restlessness Judgement: Poor Diagnostics Vital Signs (24Hr): Vital Signs - 24 hr 07/12/21 18:00 Temperature 97.7 F Pulse Rate 117 H Respiratory Rate 16 Blood Pressure 133/77 Pulse Oximetry 97 BMI result Body Mass Index 28.0 Labs Results: 07/01/21 08:13 07/01/21 08:13 Imaging Radiology Impressions: ITS Impressions Face X-Ray 04/21/21 15:29 IMPRESSION: No fracture seen. Orbit X-Ray 04/21/21 15:29 IMPRESSION: No fracture seen. Cervical Spine CT 04/24/21 22:24 IMPRESSION: No evidence of acute intracranial abnormalities. No evidence of acute maxillofacial fractures. However, evaluation of the inferior mandibular body is limited due to motion and although no definite fractures or surrounding soft tissue thickening/hematoma are identified, clinical correlation for pain/tenderness in the inferior mandible should be obtained as this is suboptimally assessed in this study. No acute cervical fractures or malalignment. Face CT 04/24/21 22:24 IMPRESSION: No evidence of acute intracranial abnormalities. No evidence of acute maxillofacial fractures. However, evaluation of the inferior mandibular body is limited due to motion and although no definite fractures or surrounding soft tissue thickening/hematoma are identified, clinical correlation for pain/tenderness in the inferior mandible should be obtained as this is suboptimally assessed in this study. No acute cervical fractures or malalignment. Head CT 04/24/21 22:24 IMPRESSION: No evidence of acute intracranial abnormalities. No evidence of acute maxillofacial fractures. However, evaluation of the inferior mandibular body is limited due to motion and although no definite fractures or surrounding soft tissue thickening/hematoma are identified, clinical correlation for pain/tenderness in the inferior mandible should be obtained as this is suboptimally assessed in this study. No acute cervical fractures or malalignment. Toe X-Ray 06/22/21 19:00 IMPRESSION: No appreciable phalangeal fractures of the right toes. Medications Medications Current Medications Acetaminophen (Acetaminophen 325 Mg Tablet) 650 mg PO Q6H PRN PRN Reason: Headache/Pain Mild Scale (1-3) Last Admin: 06/23/21 19:51 Dose: 650 mg Documented by: Al Hydroxide/Mg Hydroxide (Magnesium Hydrox/Alum Hydrox 30 Ml Oral.Susp) 30 ml PO Q6H PRN PRN Reason: Heartburn/Nausea Last Admin: 05/27/21 00:13 Dose: 30 ml Documented by: Benztropine Mesylate (Benztropine Mesylate 1 Mg Tablet) 1 mg PO TID PRN PRN Reason: Extrapyramidal Effects Chlorpromazine HCl (Chlorpromazine Hcl 100 Mg Tablet) 100 mg PO BID PRN PRN Reason: psychotic agitation Last Admin: 06/29/21 21:04 Dose: 100 mg Documented by: Chlorpromazine HCl (Chlorpromazine Hcl 100 Mg Tablet) 100 mg PO BEDTIME MARGAUX Last Admin: 07/12/21 21:24 Dose: 100 mg Documented by: Chlorpromazine HCl (Chlorpromazine Hcl 50 Mg/2 Ml Ampul) 100 mg IM BEDTIME PRN PRN Reason: if pt refuses PO per court order Diphenhydramine HCl (Diphenhydramine Hcl 25 Mg Tablet) 50 mg PO Q4H PRN PRN Reason: agitation Last Admin: 06/22/21 23:53 Dose: 50 mg Documented by: Hydroxyzine HCl (Hydroxyzine Hcl 25 Mg Tablet) 25 mg PO QID PRN PRN Reason: Anxiety Last Admin: 05/21/21 21:14 Dose: 25 mg Documented by: Ibuprofen (Ibuprofen 600 Mg Tablet) 600 mg PO Q4H PRN PRN Reason: Pain, Moderate (Pain Scale 4-6 Last Admin: 05/22/21 07:13 Dose: 600 mg Documented by: Lidocaine (Lidocaine 4 % Patch Adh..Patch) 1 patch TRANSDERMA DAILY PRN; Protocol PRN Reason: cervical pain Last Admin: 06/20/21 07:24 Dose: 1 patch Documented by: Magnesium Hydroxide (Milk Of Magnesia 30 Ml Oral.Susp) 30 ml PO DAILY PRN PRN Reason: Constipation Melatonin (Melatonin 3 Mg Tablet) 3 mg PO BEDTIME PRN PRN Reason: Insomnia Multivitamins/Vitamin C (Multivitamin Tablet) 1 tab PO DAILY [facility] Last Admin: 07/13/21 09:55 Dose: 1 tab Documented by: Nicotine (Nicotine 21 Mg Patch.Td24) 21 mg TRANSDERMA DAILY PRN PRN Reason: smoking cessation Nicotine Polacrilex (Nicotine Polacrilex 2 Mg Gum) 4 mg BUCCAL Q2H PRN PRN Reason: Nicotine Cravings Paliperidone Palmitate (Paliperidone Palmitate 234 Mg/1.5 Ml Syringe) 234 mg IM Q30D [facility] Last Admin: 06/21/21 12:06 Dose: 234 mg Documented by: Trazodone HCl (Trazodone Hcl 50 Mg Tablet) 50 mg PO BEDTIME PRN PRN Reason: Insomnia Allergies Allergies Allergy/AdvReac Type Severity Reaction Status Date / Time haloperidol [From HALDOL] Allergy Severe DYSTONIA Verified 04/19/21 06:28 ziprasidone [From GEODON] Allergy Severe DYSTONIA Verified 04/19/21 06:28 Assessment & Plan Assessment & Plan (1) Schizoaffective disorder, bipolar type: Status: Acute Code(s): F25.0 - Schizoaffective disorder, bipolar type Plan 05/07/21 Invega 6 mg 05/08. Continue Thorazine prn. (pt required IM back up on 05/07/21) 05/08/21 Continue current plan of care. 05/09/21: Ct w plan per [facility] order 05/10/21: Ct Rx plan 05/11/21: Continue Invega titration. 05/12/21 Pt tolerating Invega. Will begin Sustenna on 05/13. 05/13/21 Sustanna given, tolerated. Support, educate, integrate into milieu for added support. 05/14/21 Tolerating Sustenna. Calmer, more focused today. Asking for help with legal issues, attempting to organize his responsibilities 05/15/21 Continue current plan. 05/16/21 Continue current plan 05/17/21 Continue current plan 05/18/21 Follow up with probation-pt agrees and signed JEANNETTE Second Sustenna injection 05/21. Tolerating with breakthrough sx with PO as well. 05/19/21 Team/Peers report evening/night agitation Depakote 500 mg ER HS 05/20/21 Continue current regime Scheduled Invega injection for 05/21 Continue to attempt alliance building, education, support 05/21/21 Continue current regimen, no changes to medication, will monitor for benefit on invega sustenna COKER. Still taking PO invega. Has not been taking PO depakote, so will not order a level. 05/22/21 Continue current regimen, pt is tolerating invega sustenna well. Not taking depakote. Appropriate on the unit. 05/23/21: No changes to above med plan. 05/24/21: No changes to above plan, continue PO invega until invega sustenna reaches steady state. Pt somewhat intrusive with high fiving staff but redirectable. 05/26/21: Continue current plan. Vibra application 05/27/21 Pt has been refusing Depakote at hs with resulting poor sleep. Will give Chlorpromazine IM if Depakote is refused. 05/28/21 Continue current plan Labs 06/01/20. 05/29/21 Continue with current plan 05/30/21 continue with current treatment plan 05/31/21 continue with current treatment plan 06/01/21 Discontinue Depakote-pt prefers Chlorpromazine at HS-50 mg as he reports it is more helpful with sleep quality assistance. 06/03/21: Education, support. Vibra application. 06/04/21: Increase Chlorpromazine to 75 mg HS to assist with mgt of lability. 06/05/21: Continue current regime 06/06 continue current medications 06/09/21: Continue current plan of care Support, Educate, Inform, encourage pt's interests. 06/11/21: More engaged in milieu today. Attentive to ADL's with team encouragement. Continue plan of care. 06/12/21: Continue current regime. Sustenna due 06/21/21. 06/13/21 - 06/14/21 No changes Continue with current treatment plan 06/15/21 Continue current plan of care Invega Sustenna injection due 06/21/21. 06/16/21 Continue current plan of care. 06/17/21 Continue current plan of care Increase Chlorpromazine to 100 mg HS Discussed tapering PO Invega most likely between second and third injection of COKER. Discussed with pt treating his mood. At this time he would like more time to assess effects of therapy and COKER. 06/18/21 Continue current plan. Offer support and structure 06/19/10 Sustenna Injection 06/21. 06/20/21 No changes to the above 06/21/21 No change 06/23/21- pt without SI/HI/VH/AH, no overt delusional content reported. overly familiar with staff/asking multiple request but polite and able to be redirected. 06/26/21- Processing discussion of 06/25/21. Elopement risk Continue current plan of care. 06/29/21- Denies SE of COKER given 06/21. Continues to decline psychopharmacology intervention for mood symptoms-prefers to talk it out . Update diagnostics- EKG, CBC, CMP, TSH, Lipids, A1c, TSH, B12,Folate Pt has expressed interest in leaning to speak and write Vietnamese-given resources so he may explore this interest. Support/Educate LT Plan: Vibra 06/30/21: continue current treatment plan. pt stable. 07/01/21: Continue current treatment plan. 07/02/21: Continue current treatment plan. Review of EKG changes, RBBB with [facility], Dr. Murillo-. They report this finding to be chronic, not in need of further eval or consult. 07/03- continue current treatment plan. 07/04- no medication changes 07/06/21- Continue current plan of care. LTP-Vibra transfer 07/07/21: Continue current plan of care. Assist pt at his request in addressing his financial concerns, need for PO Box assignment and issues with social security 07/08/21 Continue plan of care no change indicated at this time 07/09/21 Continue plan of care 07/10/21 Continue plan of care 07/11/21 Continue plan of care 07/11/21 Continue plan of care 07/12/21 Continue plan of care I spent 15 minutes with the patient and/or on the patient floor today, greater than?50% of which was spent counseling/coordinating care. Patient educated on: therapeutic strategies Informed Consent: understands and further education needed Reason for contiued inpatient stay Substantial Risk for: harm to self, harm to others, inability to function and rapid decompensation
[2021-07-13] MEDS: chlorproMAZINE HCl 100 MG TABLET PO (21:54)
[2021-07-14 06:00] VITALS: BP 118/79; PULSE 100; RESP 18; TEMP 36.7; O2SAT 98
[2021-07-14] MEDS: Multivitamin TABLET 1 TAB PO (08:29)
--- NOTE | 2021-07-14 17:44 | HO.PSYCHPN ---
Subjective Subjective Date of Service: 07/14/21 Reason For Visit: Schizophrenia Subjective Notes: Section 8 Healthcare Proxy: No Guardianship: No Medical Problems Affecting Mental Status: No Interim History: Irritable, paranoid, delusional sx with response to internal stimuli, verbally aggressive and threatening at times. Court date has been postponed. Pt struggling over unit policy regarding cell phones Medication Compliance: Yes Side effects from medications: No Attending Groups: No Review of Systems Acute medical concerns: No Medical Review of Systems: unchanged Review of Systems Review of Systems Yes all other systems are reviewed and are negative Reports behavioral changes Psychiatric: Reports behavioral changes, Reports auditory hallucinations, Reports irritability, Reports anhedonia, Reports mood swings, Reports paranoia and Reports suicidal ideation (denies) Mental Status Exam Mental Status Exam Patient Appearance: Appropriate Patient Orientation: Person, Place, Time and Situation Level of Consciousness: Alert Patient Behavior: Guarded, Distractible and Good Eye Contact Mood Description: Constricted and Angry Affect Description: Constricted and Angry Patient Cognition Impaired: No Ability to Follow Directions: Good Speech Pattern: Soft-Spoken Memory Description: Remote Impaired and Episodic Impaired Hallucinations: Auditory and Visual Delusions: Paranoid Ideation and Grandiose (at times) Perceptual Disturbances: Depersonalization and Derealization Thought Process: Illogical and Distracted Thought Content: positive for Perseveration, positive for Thought Blocking and positive for Suicidal Ideation (denies) Depressive Symptoms: Thoughts of /Suicide (denies) and Low Self Esteem Abnormal Motor Activity Signs and Symptoms: Restlessness Judgement: Poor Diagnostics Vital Signs (24Hr): Vital Signs - 24 hr 07/14/21 06:00 Temperature 98.1 F Pulse Rate 100 Respiratory Rate 18 Blood Pressure 118/79 Pulse Oximetry 98 BMI result Body Mass Index 28.0 Labs Results: 07/01/21 08:13 07/01/21 08:13 Imaging Radiology Impressions: ITS Impressions Face X-Ray 04/21/21 15:29 IMPRESSION: No fracture seen. Orbit X-Ray 04/21/21 15:29 IMPRESSION: No fracture seen. Cervical Spine CT 04/24/21 22:24 IMPRESSION: No evidence of acute intracranial abnormalities. No evidence of acute maxillofacial fractures. However, evaluation of the inferior mandibular body is limited due to motion and although no definite fractures or surrounding soft tissue thickening/hematoma are identified, clinical correlation for pain/tenderness in the inferior mandible should be obtained as this is suboptimally assessed in this study. No acute cervical fractures or malalignment. Face CT 04/24/21 22:24 IMPRESSION: No evidence of acute intracranial abnormalities. No evidence of acute maxillofacial fractures. However, evaluation of the inferior mandibular body is limited due to motion and although no definite fractures or surrounding soft tissue thickening/hematoma are identified, clinical correlation for pain/tenderness in the inferior mandible should be obtained as this is suboptimally assessed in this study. No acute cervical fractures or malalignment. Head CT 04/24/21 22:24 IMPRESSION: No evidence of acute intracranial abnormalities. No evidence of acute maxillofacial fractures. However, evaluation of the inferior mandibular body is limited due to motion and although no definite fractures or surrounding soft tissue thickening/hematoma are identified, clinical correlation for pain/tenderness in the inferior mandible should be obtained as this is suboptimally assessed in this study. No acute cervical fractures or malalignment. Toe X-Ray 06/22/21 19:00 IMPRESSION: No appreciable phalangeal fractures of the right toes. Medications Medications Current Medications Acetaminophen (Acetaminophen 325 Mg Tablet) 650 mg PO Q6H PRN PRN Reason: Headache/Pain Mild Scale (1-3) Last Admin: 06/23/21 19:51 Dose: 650 mg Documented by: Al Hydroxide/Mg Hydroxide (Magnesium Hydrox/Alum Hydrox 30 Ml Oral.Susp) 30 ml PO Q6H PRN PRN Reason: Heartburn/Nausea Last Admin: 05/27/21 00:13 Dose: 30 ml Documented by: Benztropine Mesylate (Benztropine Mesylate 1 Mg Tablet) 1 mg PO TID PRN PRN Reason: Extrapyramidal Effects Chlorpromazine HCl (Chlorpromazine Hcl 100 Mg Tablet) 100 mg PO BID PRN PRN Reason: psychotic agitation Last Admin: 06/29/21 21:04 Dose: 100 mg Documented by: Chlorpromazine HCl (Chlorpromazine Hcl 100 Mg Tablet) 100 mg PO BEDTIME MARGAUX Last Admin: 07/13/21 21:54 Dose: 100 mg Documented by: Chlorpromazine HCl (Chlorpromazine Hcl 50 Mg/2 Ml Ampul) 100 mg IM BEDTIME PRN PRN Reason: if pt refuses PO per court order Diphenhydramine HCl (Diphenhydramine Hcl 25 Mg Tablet) 50 mg PO Q4H PRN PRN Reason: agitation Last Admin: 06/22/21 23:53 Dose: 50 mg Documented by: Hydroxyzine HCl (Hydroxyzine Hcl 25 Mg Tablet) 25 mg PO QID PRN PRN Reason: Anxiety Last Admin: 05/21/21 21:14 Dose: 25 mg Documented by: Ibuprofen (Ibuprofen 600 Mg Tablet) 600 mg PO Q4H PRN PRN Reason: Pain, Moderate (Pain Scale 4-6 Last Admin: 05/22/21 07:13 Dose: 600 mg Documented by: Lidocaine (Lidocaine 4 % Patch Adh..Patch) 1 patch TRANSDERMA DAILY PRN; Protocol PRN Reason: cervical pain Last Admin: 06/20/21 07:24 Dose: 1 patch Documented by: Magnesium Hydroxide (Milk Of Magnesia 30 Ml Oral.Susp) 30 ml PO DAILY PRN PRN Reason: Constipation Melatonin (Melatonin 3 Mg Tablet) 3 mg PO BEDTIME PRN PRN Reason: Insomnia Multivitamins/Vitamin C (Multivitamin Tablet) 1 tab PO DAILY [facility] Last Admin: 07/14/21 08:29 Dose: 1 tab Documented by: Nicotine (Nicotine 21 Mg Patch.Td24) 21 mg TRANSDERMA DAILY PRN PRN Reason: smoking cessation Nicotine Polacrilex (Nicotine Polacrilex 2 Mg Gum) 4 mg BUCCAL Q2H PRN PRN Reason: Nicotine Cravings Paliperidone Palmitate (Paliperidone Palmitate 234 Mg/1.5 Ml Syringe) 234 mg IM Q30D [facility] Last Admin: 06/21/21 12:06 Dose: 234 mg Documented by: Trazodone HCl (Trazodone Hcl 50 Mg Tablet) 50 mg PO BEDTIME PRN PRN Reason: Insomnia Allergies Allergies Allergy/AdvReac Type Severity Reaction Status Date / Time haloperidol [From HALDOL] Allergy Severe DYSTONIA Verified 04/19/21 06:28 ziprasidone [From GEODON] Allergy Severe DYSTONIA Verified 04/19/21 06:28 Assessment & Plan Assessment & Plan (1) Schizoaffective disorder, bipolar type: Status: Acute Code(s): F25.0 - Schizoaffective disorder, bipolar type Plan 05/07/21 Invega 6 mg 05/08. Continue Thorazine prn. (pt required IM back up on 05/07/21) 05/08/21 Continue current plan of care. 05/09/21: Ct w plan per Wolff order 05/10/21: Ct Rx plan 05/11/21: Continue Invega titration. 05/12/21 Pt tolerating Invega. Will begin Sustenna on 05/13. 05/13/21 Sustanna given, tolerated. Support, educate, integrate into milieu for added support. 05/14/21 Tolerating Sustenna. Calmer, more focused today. Asking for help with legal issues, attempting to organize his responsibilities 05/15/21 Continue current plan. 05/16/21 Continue current plan 05/17/21 Continue current plan 05/18/21 Follow up with probation-pt agrees and signed JEANNETTE Second Sustenna injection 05/21. Tolerating with breakthrough sx with PO as well. 05/19/21 Team/Peers report evening/night agitation Depakote 500 mg ER HS 05/20/21 Continue current regime Scheduled Invega injection for 05/21 Continue to attempt alliance building, education, support 05/21/21 Continue current regimen, no changes to medication, will monitor for benefit on invega sustenna COKER. Still taking PO invega. Has not been taking PO depakote, so will not order a level. 05/22/21 Continue current regimen, pt is tolerating invega sustenna well. Not taking depakote. Appropriate on the unit. 05/23/21: No changes to above med plan. 05/24/21: No changes to above plan, continue PO invega until invega sustenna reaches steady state. Pt somewhat intrusive with high fiving staff but redirectable. 05/26/21: Continue current plan. Vibra application 05/27/21 Pt has been refusing Depakote at hs with resulting poor sleep. Will give Chlorpromazine IM if Depakote is refused. 05/28/21 Continue current plan Labs 06/01/20. 05/29/21 Continue with current plan 05/30/21 continue with current treatment plan 05/31/21 continue with current treatment plan 06/01/21 Discontinue Depakote-pt prefers Chlorpromazine at HS-50 mg as he reports it is more helpful with sleep quality assistance. 06/03/21: Education, support. Vibra application. 06/04/21: Increase Chlorpromazine to 75 mg HS to assist with mgt of lability. 06/05/21: Continue current regime 06/06 continue current medications 06/09/21: Continue current plan of care Support, Educate, Inform, encourage pt's interests. 06/11/21: More engaged in milieu today. Attentive to ADL's with team encouragement. Continue plan of care. 06/12/21: Continue current regime. Sustenna due 06/21/21. 06/13/21 - 06/14/21 No changes Continue with current treatment plan 06/15/21 Continue current plan of care Invega Sustenna injection due 06/21/21. 06/16/21 Continue current plan of care. 06/17/21 Continue current plan of care Increase Chlorpromazine to 100 mg HS Discussed tapering PO Invega most likely between second and third injection of COKER. Discussed with pt treating his mood. At this time he would like more time to assess effects of therapy and COKER. 06/18/21 Continue current plan. Offer support and structure 06/19/10 Sustenna Injection 06/21. 06/20/21 No changes to the above 06/21/21 No change 06/23/21- pt without SI/HI/VH/AH, no overt delusional content reported. overly familiar with staff/asking multiple request but polite and able to be redirected. 06/26/21- Processing discussion of 06/25/21. Elopement risk Continue current plan of care. 06/29/21- Denies SE of COKER given 06/21. Continues to decline psychopharmacology intervention for mood symptoms-prefers to talk it out . Update diagnostics- EKG, CBC, CMP, TSH, Lipids, A1c, TSH, B12,Folate Pt has expressed interest in leaning to speak and write Maltese-given resources so he may explore this interest. Support/Educate LT Plan: Vibra 06/30/21: continue current treatment plan. pt stable. 07/01/21: Continue current treatment plan. 07/02/21: Continue current treatment plan. Review of EKG changes, RBBB with [facility], Dr. Murillo-. They report this finding to be chronic, not in need of further eval or consult. 07/03- continue current treatment plan. 07/04- no medication changes 07/06/21- Continue current plan of care. LTP-Vibra transfer 07/07/21: Continue current plan of care. Assist pt at his request in addressing his financial concerns, need for PO Box assignment and issues with social security 07/08/21 Continue plan of care no change indicated at this time 07/09/21 Continue plan of care 07/10/21 Continue plan of care 07/11/21 Continue plan of care 07/11/21 Continue plan of care 07/12/21 Continue plan of care 07/14/21 Invega 6 mg po a.m. restart Thorazine IM back up if pt refuses. I spent 20 minutes with the patient and/or on the patient floor today, greater than?50% of which was spent counseling/coordinating care. Patient educated on: diagnosis, medication risk/benefits and therapeutic strategies Informed Consent: does not understand Reason for contiued inpatient stay Substantial Risk for: harm to self, harm to others, inability to function and rapid decompensation
[2021-07-14] MEDS: chlorproMAZINE HCl 100 MG TABLET PO (21:45)
[2021-07-15] MEDS: Multivitamin TABLET 1 TAB PO (11:06)
[2021-07-15] MEDS: Paliperidone ER 6 MG TAB.ER.24 PO (11:06)
[2021-07-15 18:00] VITALS: BP 118/78; PULSE 78; RESP 16; TEMP 36.3; O2SAT 98
--- NOTE | 2021-07-15 18:53 | P.PNPSI_ITS ---
Subjective Subjective Date of Service: 07/15/21 Reason For Visit: Schizophrenia Interim History: Labile, angry, with paranoia, response to internal stimuli and delusional content. Invega 6 mg po added in the a.m. Discussed with pt rationale for addition. Refused to accept the medication-accusatory of team holding him in hospital due to homelessness. Pt accepted PO Invega with staff support and security presence. Medication Compliance: Yes Side effects from medications: No Attending Groups: No Review of Systems Acute medical concerns: No Medical Review of Systems: unchanged Review of Systems Review of Systems Yes all other systems are reviewed and are negative Reports behavioral changes Psychiatric: Reports behavioral changes, Reports auditory hallucinations, Reports irritability, Reports anhedonia, Reports mood swings, Reports paranoia and Reports suicidal ideation (denies) Mental Status Exam Mental Status Exam Patient Appearance: Appropriate Patient Orientation: Person, Place, Time and Situation Level of Consciousness: Alert Patient Behavior: Guarded, Distractible and Good Eye Contact Mood Description: Constricted and Angry Affect Description: Constricted and Angry Patient Cognition Impaired: No Ability to Follow Directions: Good Speech Pattern: Soft-Spoken Memory Description: Remote Impaired and Episodic Impaired Hallucinations: Auditory and Visual Delusions: Paranoid Ideation and Grandiose (at times) Perceptual Disturbances: Depersonalization and Derealization Thought Process: Illogical and Distracted Thought Content: positive for Perseveration, positive for Thought Blocking and positive for Suicidal Ideation (denies) Depressive Symptoms: Thoughts of /Suicide (denies) and Low Self Esteem Abnormal Motor Activity Signs and Symptoms: Restlessness Judgement: Poor Diagnostics Vital Signs (24Hr): BMI result Body Mass Index 28.0 Labs Results: 07/01/21 08:13 07/01/21 08:13 Imaging Radiology Impressions: ITS Impressions Face X-Ray 04/21/21 15:29 IMPRESSION: No fracture seen. Orbit X-Ray 04/21/21 15:29 IMPRESSION: No fracture seen. Cervical Spine CT 04/24/21 22:24 IMPRESSION: No evidence of acute intracranial abnormalities. No evidence of acute maxillofacial fractures. However, evaluation of the inferior mandibular body is limited due to motion and although no definite fractures or surrounding soft tissue thickening/hematoma are identified, clinical correlation for pain/tenderness in the inferior mandible should be obtained as this is suboptimally assessed in this study. No acute cervical fractures or malalignment. Face CT 04/24/21 22:24 IMPRESSION: No evidence of acute intracranial abnormalities. No evidence of acute maxillofacial fractures. However, evaluation of the inferior mandibular body is limited due to motion and although no definite fractures or surrounding soft tissue thickening/hematoma are identified, clinical correlation for pain/tenderness in the inferior mandible should be obtained as this is suboptimally assessed in this study. No acute cervical fractures or malalignment. Head CT 04/24/21 22:24 IMPRESSION: No evidence of acute intracranial abnormalities. No evidence of acute maxillofacial fractures. However, evaluation of the inferior mandibular body is limited due to motion and although no definite fractures or surrounding soft tissue thickening/hematoma are identified, clinical correlation for pain/tenderness in the inferior mandible should be obtained as this is suboptimally assessed in this study. No acute cervical fractures or malalignment. Toe X-Ray 06/22/21 19:00 IMPRESSION: No appreciable phalangeal fractures of the right toes. Medications Medications Current Medications Acetaminophen (Acetaminophen 325 Mg Tablet) 650 mg PO Q6H PRN PRN Reason: Headache/Pain Mild Scale (1-3) Last Admin: 06/23/21 19:51 Dose: 650 mg Documented by: Al Hydroxide/Mg Hydroxide (Magnesium Hydrox/Alum Hydrox 30 Ml Oral.Susp) 30 ml PO Q6H PRN PRN Reason: Heartburn/Nausea Last Admin: 05/27/21 00:13 Dose: 30 ml Documented by: Benztropine Mesylate (Benztropine Mesylate 1 Mg Tablet) 1 mg PO TID PRN PRN Reason: Extrapyramidal Effects Chlorpromazine HCl (Chlorpromazine Hcl 100 Mg Tablet) 100 mg PO BID PRN PRN Reason: psychotic agitation Last Admin: 06/29/21 21:04 Dose: 100 mg Documented by: Chlorpromazine HCl (Chlorpromazine Hcl 100 Mg Tablet) 100 mg PO BEDTIME MARGAUX Last Admin: 07/14/21 21:45 Dose: 100 mg Documented by: Chlorpromazine HCl (Chlorpromazine Hcl 50 Mg/2 Ml Ampul) 100 mg IM BEDTIME PRN PRN Reason: if pt refuses PO per court order Chlorpromazine HCl (Chlorpromazine Hcl 50 Mg/2 Ml Ampul) 50 mg IM DAILY PRN PRN Reason: If pt refuses po Invega/court Diphenhydramine HCl (Diphenhydramine Hcl 25 Mg Tablet) 50 mg PO Q4H PRN PRN Reason: agitation Last Admin: 06/22/21 23:53 Dose: 50 mg Documented by: Hydroxyzine HCl (Hydroxyzine Hcl 25 Mg Tablet) 25 mg PO QID PRN PRN Reason: Anxiety Last Admin: 05/21/21 21:14 Dose: 25 mg Documented by: Ibuprofen (Ibuprofen 600 Mg Tablet) 600 mg PO Q4H PRN PRN Reason: Pain, Moderate (Pain Scale 4-6 Last Admin: 05/22/21 07:13 Dose: 600 mg Documented by: Lidocaine (Lidocaine 4 % Patch Adh..Patch) 1 patch TRANSDERMA DAILY PRN; Protocol PRN Reason: cervical pain Last Admin: 06/20/21 07:24 Dose: 1 patch Documented by: Magnesium Hydroxide (Milk Of Magnesia 30 Ml Oral.Susp) 30 ml PO DAILY PRN PRN Reason: Constipation Melatonin (Melatonin 3 Mg Tablet) 3 mg PO BEDTIME PRN PRN Reason: Insomnia Multivitamins/Vitamin C (Multivitamin Tablet) 1 tab PO DAILY [facility] Last Admin: 07/15/21 11:06 Dose: 1 tab Documented by: Nicotine (Nicotine 21 Mg Patch.Td24) 21 mg TRANSDERMA DAILY PRN PRN Reason: smoking cessation Nicotine Polacrilex (Nicotine Polacrilex 2 Mg Gum) 4 mg BUCCAL Q2H PRN PRN Reason: Nicotine Cravings Paliperidone (Paliperidone Er 6 Mg Tab.Er.24) 6 mg PO DAILY [facility] Last Admin: 07/15/21 11:06 Dose: 6 mg Documented by: Paliperidone Palmitate (Paliperidone Palmitate 234 Mg/1.5 Ml Syringe) 234 mg IM Q30D [facility] Last Admin: 06/21/21 12:06 Dose: 234 mg Documented by: Trazodone HCl (Trazodone Hcl 50 Mg Tablet) 50 mg PO BEDTIME PRN PRN Reason: Insomnia Allergies Allergies Allergy/AdvReac Type Severity Reaction Status Date / Time haloperidol [From HALDOL] Allergy Severe DYSTONIA Verified 04/19/21 06:28 ziprasidone [From GEODON] Allergy Severe DYSTONIA Verified 04/19/21 06:28 Assessment & Plan Assessment & Plan (1) Schizoaffective disorder, bipolar type: Status: Acute Code(s): F25.0 - Schizoaffective disorder, bipolar type Plan 05/07/21 Invega 6 mg 05/08. Continue Thorazine prn. (pt required IM back up on 05/07/21) 05/08/21 Continue current plan of care. 05/09/21: Ct w plan per [facility]ff order 05/10/21: Ct Rx plan 05/11/21: Continue Invega titration. 05/12/21 Pt tolerating Invega. Will begin Sustenna on 05/13. 05/13/21 Sustanna given, tolerated. Support, educate, integrate into milieu for added support. 05/14/21 Tolerating Sustenna. Calmer, more focused today. Asking for help with legal issues, attempting to organize his responsibilities 05/15/21 Continue current plan. 05/16/21 Continue current plan 05/17/21 Continue current plan 05/18/21 Follow up with probation-pt agrees and signed JEANNETTE Second Sustenna injection 05/21. Tolerating with breakthrough sx with PO as well. 05/19/21 Team/Peers report evening/night agitation Depakote 500 mg ER HS 05/20/21 Continue current regime Scheduled Invega injection for 05/21 Continue to attempt alliance building, education, support 05/21/21 Continue current regimen, no changes to medication, will monitor for benefit on invega sustenna COKER. Still taking PO invega. Has not been taking PO depakote, so will not order a level. 05/22/21 Continue current regimen, pt is tolerating invega sustenna well. Not taking depakote. Appropriate on the unit. 05/23/21: No changes to above med plan. 05/24/21: No changes to above plan, continue PO invega until invega sustenna reaches steady state. Pt somewhat intrusive with high fiving staff but redirectable. 05/26/21: Continue current plan. Vibra application 05/27/21 Pt has been refusing Depakote at hs with resulting poor sleep. Will give Chlorpromazine IM if Depakote is refused. 05/28/21 Continue current plan Labs 06/01/20. 05/29/21 Continue with current plan 05/30/21 continue with current treatment plan 05/31/21 continue with current treatment plan 06/01/21 Discontinue Depakote-pt prefers Chlorpromazine at HS-50 mg as he reports it is more helpful with sleep quality assistance. 06/03/21: Education, support. Vibra application. 06/04/21: Increase Chlorpromazine to 75 mg HS to assist with mgt of lability. 06/05/21: Continue current regime 06/06 continue current medications 06/09/21: Continue current plan of care Support, Educate, Inform, encourage pt's interests. 06/11/21: More engaged in milieu today. Attentive to ADL's with team encouragement. Continue plan of care. 06/12/21: Continue current regime. Sustenna due 06/21/21. 06/13/21 - 06/14/21 No changes Continue with current treatment plan 06/15/21 Continue current plan of care Invega Sustenna injection due 06/21/21. 06/16/21 Continue current plan of care. 06/17/21 Continue current plan of care Increase Chlorpromazine to 100 mg HS Discussed tapering PO Invega most likely between second and third injection of COKER. Discussed with pt treating his mood. At this time he would like more time to assess effects of therapy and COKER. 06/18/21 Continue current plan. Offer support and structure 06/19/10 Sustenna Injection 06/21. 06/20/21 No changes to the above 06/21/21 No change 06/23/21- pt without SI/HI/VH/AH, no overt delusional content reported. overly familiar with staff/asking multiple request but polite and able to be redire cted. 06/26/21- Processing discussion of 06/25/21. Elopement risk Continue current plan of care. 06/29/21- Denies SE of COKER given 06/21. Continues to decline psychopharmacology intervention for mood symptoms-prefers to talk it out . Update diagnostics- EKG, CBC, CMP, TSH, Lipids, A1c, TSH, B12,Folate Pt has expressed interest in leaning to speak and write Trinidadian-given resources so he may explore this interest. Support/Educate LT Plan: Vibra 06/30/21: continue current treatment plan. pt stable. 07/01/21: Continue current treatment plan. 07/02/21: Continue current treatment plan. Review of EKG changes, RBBB with [facility], Dr. Murillo-. They report this finding to be chronic, not in need of further eval or consult. 07/03- continue current treatment plan. 07/04- no medication changes 07/06/21- Continue current plan of care. LTP-Vibra transfer 07/07/21: Continue current plan of care. Assist pt at his request in addressing his financial concerns, need for PO Box assignment and issues with social security 07/08/21 Continue plan of care no change indicated at this time 07/09/21 Continue plan of care 07/10/21 Continue plan of care 07/11/21 Continue plan of care 07/11/21 Continue plan of care 07/12/21 Continue plan of care 07/14/21 Invega 6 mg po a.m. restart Thorazine IM back up if pt refuses. 07/15/21: Continue current plan. I spent 25 minutes with the patient and/or on the patient floor today, greater than?50% of which was spent counseling/coordinating care. Patient educated on: medication risk/benefits and therapeutic strategies Informed Consent: does not understand Reason for contiued inpatient stay Substantial Risk for: harm to self, harm to others, inability to function and rapid decompensation
[2021-07-15] MEDS: chlorproMAZINE HCl 100 MG TABLET PO (20:21)
[2021-07-16 06:00] VITALS: BP 117/76; PULSE 148; RESP 20; TEMP 36.9; O2SAT 99
[2021-07-16 07:00] VITALS: BMI 26.6
[2021-07-16] MEDS: Paliperidone ER 6 MG TAB.ER.24 PO (08:31)
[2021-07-16] MEDS: Multivitamin TABLET 1 TAB PO (08:31)
--- NOTE | 2021-07-16 16:59 | P.PNPSI_ITS ---
Subjective Subjective Date of Service: 07/16/21 Reason For Visit: Schizophrenia Subjective Notes: Section 8 Healthcare Proxy: No Guardianship: No Medical Problems Affecting Mental Status: No Interim History: Meeting with Asif Tanisha LUND, Leatha Finch, Director of Behavioral Health. Review of use of cell phones completed with pt who verbalized understanding. Pt will discuss any phone use needs with Tanisha LUND and will be allowed to change music venues along with peers on schedule. Discussed rationale for [facility] referral. Discussed psychosis and need for treatm ent when Asif was first admitted and concerns communicated by community after admission that symptoms contained sexual and predatory behaviors which needed further assessment, thus the rationale for referral, to assist pt in full treatment experience so when he is discharged he will have the greatest chance for success and decrease need for re-hospitalization. Discussed current legal charges as well and this plan being seen by the court as serious and pt wanting to work to resolve issues. Pt was tearful, spoke of feeling he did not have family, friends to connect with. Discussed how mother did not want to visit without a family meeting. Team offered support for pt to continue to move forw venecia, heal and meet his goals. He reports added Invega has been helpful, decreasing depressive sx. Discussed mood stabilizers-Okreek, Trileptal, Lamictal-will provide handouts for pt for review. Medication Compliance: Yes Side effects from medications: No Attending Groups: Intermittent Review of Systems Acute medical concerns: No Medical Review of Systems: unchanged Review of Systems Reports behavioral changes Psychiatric: Reports anxiety, Reports behavioral changes, Reports depression, R eports difficulty concentrating, Reports auditory hallucinations, Reports hopelessness, Reports irritability, Reports anhedonia, Reports mood swings, Reports paranoia, Reports visual hallucinations and Reports hallucinations Mental Status Exam Mental Status Exam Patient Appearance: Appropriate Patient Orientation: Person, Place, Time and Situation Level of Consciousness: Alert Patient Behavior: Talkative, Distractible and Good Eye Contact Mood Description: Constricted and Depressed Affect Description: Constricted and Flat Patient Cognition Impaired: No Ability to Follow Directions: Good Speech Pattern: Soft-Spoken Memory Description: Remote Impaired and Episodic Impaired Hallucinations: Auditory and Visual Delusions: Paranoid Ideation Perceptual Disturbances: Depersonalization and Derealization Thought Process: Distracted Thought Content: positive for Perseveration and positive for Suicidal Ideation (denies) Depressive Symptoms: Thoughts of /Suicide (denies) and Low Self Esteem Abnormal Motor Activity Signs and Symptoms: Restlessness Judgement: Poor Diagnostics Vital Signs (24Hr): Vital Signs - 24 hr 07/15/21 18:00 07/16/21 06:00 Temperature 97.4 F 98.4 F Pulse Rate 78 148 H Respiratory Rate 16 20 Blood Pressure 118/78 117/76 Pulse Oximetry 98 99 BMI result Body Mass Index 26.6 Labs Results: 07/01/21 08:13 07/01/21 08:13 Imaging Radiology Impressions: ITS Impressions Face X-Ray 04/21/21 15:29 IMPRESSION: No fracture seen. Orbit X-Ray 04/21/21 15:29 IMPRESSION: No fracture seen. Cervical Spine CT 04/24/21 22:24 IMPRESSION: No evidence of acute intracranial abnormalities. No evidence of acute maxillofacial fractures. However, evaluation of the inferior mandibular body is limited due to motion and although no definite fractures or surrounding soft tissue thickening/hematoma are identified, clinical correlation for pain/tenderness in the inferior mandible should be obtained as this is suboptimally assessed in this study. No acute cervical fractures or malalignment. Face CT 04/24/21 22:24 IMPRESSION: No evidence of acute intracranial abnormalities. No evidence of acute maxillofacial fractures. However, evaluation of the inferior mandibular body is limited due to motion and although no definite fractures or surrounding soft tissue thickening/hematoma are identified, clinical correlation for pain/tenderness in the inferior mandible should be obtained as this is suboptimally assessed in this study. No acute cervical fractures or malalignment. Head CT 04/24/21 22:24 IMPRESSION: No evidence of acute intracranial abnormalities. No evidence of acute maxillofacial fractures. However, evaluation of the inferior mandibular body is limited due to motion and although no definite fractures or surrounding soft tissue thickening/hematoma are identified, clinical correlation for pain/tenderness in the inferior mandible should be obtained as this is suboptimally assessed in this study. No acute cervical fractures or malalignment. Toe X-Ray 06/22/21 19:00 IMPRESSION: No appreciable phalangeal fractures of the right toes. Medications Medications Current Medications Acetaminophen (Acetaminophen 325 Mg Tablet) 650 mg PO Q6H PRN PRN Reason: Headache/Pain Mild Scale (1-3) Last Admin: 06/23/21 19:51 Dose: 650 mg Documented by: Al Hydroxide/Mg Hydroxide (Magnesium Hydrox/Alum Hydrox 30 Ml Oral.Susp) 30 ml PO Q6H PRN PRN Reason: Heartburn/Nausea Last Admin: 05/27/21 00:13 Dose: 30 ml Documented by: Benztropine Mesylate (Benztropine Mesylate 1 Mg Tablet) 1 mg PO TID PRN PRN Reason: Extrapyramidal Effects Chlorpromazine HCl (Chlorpromazine Hcl 100 Mg Tablet) 100 mg PO BID PRN PRN Reason: psychotic agitation Last Admin: 06/29/21 21:04 Dose: 100 mg Documented by: Chlorpromazine HCl (Chlorpromazine Hcl 100 Mg Tablet) 100 mg PO BEDTIME MARGAUX Last Admin: 07/15/21 20:21 Dose: 100 mg Documented by: Chlorpromazine HCl (Chlorpromazine Hcl 50 Mg/2 Ml Ampul) 100 mg IM BEDTIME PRN PRN Reason: if pt refuses PO per court order Chlorpromazine HCl (Chlorpromazine Hcl 50 Mg/2 Ml Ampul) 50 mg IM DAILY PRN PRN Reason: If pt refuses po Invega/court Diphenhydramine HCl (Diphenhydramine Hcl 25 Mg Tablet) 50 mg PO Q4H PRN PRN Reason: agitation Last Admin: 06/22/21 23:53 Dose: 50 mg Documented by: Hydroxyzine HCl (Hydroxyzine Hcl 25 Mg Tablet) 25 mg PO QID PRN PRN Reason: Anxiety Last Admin: 05/21/21 21:14 Dose: 25 mg Documented by: Ibuprofen (Ibuprofen 600 Mg Tablet) 600 mg PO Q4H PRN PRN Reason: Pain, Moderate (Pain Scale 4-6 Last Admin: 05/22/21 07:13 Dose: 600 mg Documented by: Lidocaine (Lidocaine 4 % Patch Adh..Patch) 1 patch TRANSDERMA DAILY PRN; Protocol PRN Reason: cervical pain Last Admin: 06/20/21 07:24 Dose: 1 patch Documented by: Magnesium Hydroxide (Milk Of Magnesia 30 Ml Oral.Susp) 30 ml PO DAILY PRN PRN Reason: Constipation Melatonin (Melatonin 3 Mg Tablet) 3 mg PO BEDTIME PRN PRN Reason: Insomnia Multivitamins/Vitamin C (Multivitamin Tablet) 1 tab PO DAILY MARGAUX Last Admin: 07/16/21 08:31 Dose: 1 tab Documented by: Nicotine (Nicotine 21 Mg Patch.Td24) 21 mg TRANSDERMA DAILY PRN PRN Reason: smoking cessation Nicotine Polacrilex (Nicotine Polacrilex 2 Mg Gum) 4 mg BUCCAL Q2H PRN PRN Reason: Nicotine Cravings Paliperidone (Paliperidone Er 6 Mg Tab.Er.24) 6 mg PO DAILY PENDING SALE TO [facility] Last Admin: 07/16/21 08:31 Dose: 6 mg Documented by: Paliperidone Palmitate (Paliperidone Palmitate 234 Mg/1.5 Ml Syringe) 234 mg IM Q30D PENDING SALE TO [facility] Last Admin: 06/21/21 12:06 Dose: 234 mg Documented by: Trazodone HCl (Trazodone Hcl 50 Mg Tablet) 50 mg PO BEDTIME PRN PRN Reason: Insomnia Allergies Allergies Allergy/AdvReac Type Severity Reaction Status Date / Time haloperidol [From HALDOL] Allergy Severe DYSTONIA Verified 04/19/21 06:28 ziprasidone [From GEODON] Allergy Severe DYSTONIA Verified 04/19/21 06:28 Assessment & Plan Assessment & Plan (1) Schizoaffective disorder, bipolar type: Status: Acute Code(s): F25.0 - Schizoaffective disorder, bipolar type Plan 05/07/21 Invega 6 mg 05/08. Continue Thorazine prn. (pt required IM back up on 05/07/21) 05/08/21 Continue current plan of care. 05/09/21: Ct w plan per [facility] order 05/10/21: Ct Rx plan 05/11/21: Continue Invega titration. 05/12/21 Pt tolerating Invega. Will begin Sustenna on 05/13. 05/13/21 Sustanna given, tolerated. Support, educate, integrate into milieu for added support. 05/14/21 Tolerating Sustenna. Calmer, more focused today. Asking for help with legal issues, attempting to organize his responsibilities 05/15/21 Continue current plan. 05/16/21 Continue current plan 05/17/21 Continue current plan 05/18/21 Follow up with probation-pt agrees and signed JEANNETTE Second Sustenna injection 05/21. Tolerating with breakthrough sx with PO as well. 05/19/21 Team/Peers report evening/night agitation Depakote 500 mg ER HS 05/20/21 Continue current regime Scheduled Invega injection for 05/21 Continue to attempt alliance building, education, support 05/21/21 Continue current regimen, no changes to medication, will monitor for benefit on invega sustenna COKER. Still taking PO invega. Has not been taking PO depakote, so will not order a level. 05/22/21 Continue current regimen, pt is tolerating invega sustenna well. Not taking depakote. Appropriate on the unit. 05/23/21: No changes to above med plan. 05/24/21: No changes to above plan, continue PO invega until invega sustenna reaches steady state. Pt somewhat intrusive with high fiving staff but redirectable. 05/26/21: Continue current plan. [facility] application 05/27/21 Pt has been refusing Depakote at hs with resulting poor sleep. Will give Chlorpromazine IM if Depakote is refused. 05/28/21 Continue current plan Labs 06/01/20. 05/29/21 Continue with current plan 05/30/21 continue with current treatment plan 05/31/21 continue with current treatment plan 06/01/21 Discontinue Depakote-pt prefers Chlorpromazine at HS-50 mg as he reports it is more helpful with sleep quality assistance. 06/03/21: Education, support. [facility] application. 06/04/21: Increase Chlorpromazine to 75 mg HS to assist with mgt of lability. 06/05/21: Continue current regime 06/06 continue current medications 06/09/21: Continue current plan of care Support, Educate, Inform, encourage pt's interests. 06/11/21: More engaged in milieu today. Attentive to ADL's with team encouragemen t. Continue plan of care. 06/12/21: Continue current regime. Sustenna due 06/21/21. 06/13/21 - 06/14/21 No changes Continue with current treatment plan 06/15/21 Continue current plan of care Invega Sustenna injection due 06/21/21. 06/16/21 Continue current plan of care. 06/17/21 Continue current plan of care Increase Chlorpromazine to 100 mg HS Discussed tapering PO Invega most likely between second and third injection of COKER. Discussed with pt treating his mood. At this time he would like more time to assess effects of therapy and COKER. 06/18/21 Continue current plan. Offer support and structure 06/19/10 Sustenna Injection 06/21. 06/20/21 No changes to the above 06/21/21 No change 06/23/21- pt without SI/HI/VH/AH, no overt delusional content reported. overly familiar with staff/asking multiple request but polite and able to be redirected. 06/26/21- Processing discussion of 06/25/21. Elopement risk Continue current plan of care. 06/29/21- Denies SE of COKER given 06/21. Continues to decline psychopharmacology intervention for mood symptoms-prefers to talk it out . Update diagnostics- EKG, CBC, CMP, TSH, Lipids, A1c, TSH, B12,Folate Pt has expressed interest in leaning to speak and write Turkish-given resources so he may explore this interest. Support/Educate LT Plan: [facility] 06/30/21: continue current treatment plan. pt stable. 07/01/21: Continue current treatment plan. 07/02/21: Continue current treatment plan. Review of EKG changes, RBBB with [facility], Dr. Murillo-. They report this finding to be chronic, not in need of further eval or consult. 07/03- continue current treatment plan. 07/04- no medication changes 07/06/21- Continue current plan of care. [facility] transfer 07/07/21: Continue current plan of care. Assist pt at his request in addressing his financial concerns, need for PO Box assignment and issues with social security 07/08/21 Continue plan of care no change indicated at this time 07/09/21 Continue plan of care 07/10/21 Continue plan of care 07/11/21 Continue plan of care 07/11/21 Continue plan of care 07/12/21 Continue plan of care 07/14/21 Invega 6 mg po a.m. restart Thorazine IM back up if pt refuses. 07/15/21: Continue current plan. 07/16/21: Continue current plan. I spent 60 minutes with the patient and/or on the patient floor today, greater than?50% of which was spent counseling/coordinating care. Patient educated on: diagnosis and therapeutic strategies Informed Consent: further education needed Reason for contiued inpatient stay Substantial Risk for: harm to self, harm to others, inability to function and rapid decompensation
[2021-07-16 18:28] VITALS: BP 95/52; PULSE 85; RESP 16; TEMP 37.3; O2SAT 97
[2021-07-16] MEDS: chlorproMAZINE HCl 100 MG TABLET PO (22:25)
[2021-07-17] MEDS: Paliperidone ER 6 MG TAB.ER.24 PO (09:24)
[2021-07-17] MEDS: Multivitamin TABLET 1 TAB PO (09:24)
--- NOTE | 2021-07-17 17:38 | P.PNPSI_ITS ---
Subjective Subjective Date of Service: 07/17/21 Reason For Visit: Schizophrenia Interim History: Patient seen and discussed with team. Patient evaluated this today and upon interview he is found laying down in bed, headphones on. Pt states he is doing pretty good, felt depressed for 2 weeks, but i'm coming out of it slowly but surely. Says his medications are going okay as far as i can see and that I was going to get something for bipolar depression but i'm coming out of it just fine. Says he had issues with staff but that they have been dealt with it. In the milieu, patient is safe but isolative in behavior. Denies SI/SIB/HI upon inquiry. Denies irritability or assaultive ideation. Says he feels safe. Medication Compliance: Yes Side effects from medications: No Attending Groups: No Review of Systems Acute medical concerns: No Medical Review of Systems: unchanged Mental Status Exam Mental Status Exam Narrative: Patient Appearance:?Appropriate Patient Orientation:?Person, Place, Time and Situation Level of Consciousness:?Alert Patient Behavior:?Talkative, Distractible and Good Eye Contact Mood Description:?Constricted and Depressed Affect Description:?Constricted and Flat Patient Cognition Impaired:?No Ability to Follow Directions:?Good Speech Pattern:?Soft-Spoken Memory Description:?Remote Impaired and Episodic Impaired Hallucinations:?Auditory and Visual Delusions:?Paranoid Ideation Perceptual Disturbances:?Depersonalization and Derealization Thought Process:?Distracted Thought Content:?positive for Perseveration and positive for Suicidal Ideation (denies) Depressive Symptoms:?Thoughts of /Suicide (denies) and Low Self Esteem Abnormal Motor Activity Signs and Symptoms:?Restlessness Judgement:?Poor Diagnostics Vital Signs (24Hr): Vital Signs - 24 hr 07/16/21 18:28 Temperature 99.1 F Pulse Rate 85 Respiratory Rate 16 Blood Pressure 95/52 L Pulse Oximetry 97 BMI result Body Mass Index 26.6 Labs Results: 07/01/21 08:13 07/01/21 08:13 Imaging Radiology Impressions: ITS Impressions Face X-Ray 04/21/21 15:29 IMPRESSION: No fracture seen. Orbit X-Ray 04/21/21 15:29 IMPRESSION: No fracture seen. Cervical Spine CT 04/24/21 22:24 IMPRESSION: No evidence of acute intracranial abnormalities. No evidence of acute maxillofacial fractures. However, evaluation of the inferior mandibular body is limited due to motion and although no definite fractures or surrounding soft tissue thickening/hematoma are identified, clinical correlation for pain/tenderness in the inferior mandible should be obtained as this is suboptimally assessed in this study. No acute cervical fractures or malalignment. Face CT 04/24/21 22:24 IMPRESSION: No evidence of acute intracranial abnormalities. No evidence of acute maxillofacial fractures. However, evaluation of the inferior mandibular body is limited due to motion and although no definite fractures or surrounding soft tissue thickening/hematoma are identified, clinical correlation for pain/tenderness in the inferior mandible should be obtained as this is suboptimally assessed in this study. No acute cervical fractures or malalignment. Head CT 04/24/21 22:24 IMPRESSION: No evidence of acute intracranial abnormalities. No evidence of acute maxillofacial fractures. However, evaluation of the inferior mandibular body is limited due to motion and although no definite fractures or surrounding soft tissue thickening/hematoma are identified, clinical correlation for pain/tenderness in the inferior mandible should be obtained as this is suboptimally assessed in this study. No acute cervical fractures or malalignment. Toe X-Ray 06/22/21 19:00 IMPRESSION: No appreciable phalangeal fractures of the right toes. Medications Medications Current Medications Acetaminophen (Acetaminophen 325 Mg Tablet) 650 mg PO Q6H PRN PRN Reason: Headache/Pain Mild Scale (1-3) Last Admin: 06/23/21 19:51 Dose: 650 mg Documented by: Al Hydroxide/Mg Hydroxide (Magnesium Hydrox/Alum Hydrox 30 Ml Oral.Susp) 30 ml PO Q6H PRN PRN Reason: Heartburn/Nausea Last Admin: 05/27/21 00:13 Dose: 30 ml Documented by: Benztropine Mesylate (Benztropine Mesylate 1 Mg Tablet) 1 mg PO TID PRN PRN Reason: Extrapyramidal Effects Chlorpromazine HCl (Chlorpromazine Hcl 100 Mg Tablet) 100 mg PO BID PRN PRN Reason: psychotic agitation Last Admin: 06/29/21 21:04 Dose: 100 mg Documented by: Chlorpromazine HCl (Chlorpromazine Hcl 100 Mg Tablet) 100 mg PO BEDTIME MARGAUX Last Admin: 07/16/21 22:25 Dose: 100 mg Documented by: Chlorpromazine HCl (Chlorpromazine Hcl 50 Mg/2 Ml Ampul) 100 mg IM BEDTIME PRN PRN Reason: if pt refuses PO per court order Chlorpromazine HCl (Chlorpromazine Hcl 50 Mg/2 Ml Ampul) 50 mg IM DAILY PRN PRN Reason: If pt refuses po Invega/court Diphenhydramine HCl (Diphenhydramine Hcl 25 Mg Tablet) 50 mg PO Q4H PRN PRN Reason: agitation Last Admin: 06/22/21 23:53 Dose: 50 mg Documented by: Hydroxyzine HCl (Hydroxyzine Hcl 25 Mg Tablet) 25 mg PO QID PRN PRN Reason: Anxiety Last Admin: 05/21/21 21:14 Dose: 25 mg Documented by: Ibuprofen (Ibuprofen 600 Mg Tablet) 600 mg PO Q4H PRN PRN Reason: Pain, Moderate (Pain Scale 4-6 Last Admin: 05/22/21 07:13 Dose: 600 mg Documented by: Lidocaine (Lidocaine 4 % Patch Adh..Patch) 1 patch TRANSDERMA DAILY PRN; Protocol PRN Reason: cervical pain Last Admin: 06/20/21 07:24 Dose: 1 patch Documented by: Magnesium Hydroxide (Milk Of Magnesia 30 Ml Oral.Susp) 30 ml PO DAILY PRN PRN Reason: Constipation Melatonin (Melatonin 3 Mg Tablet) 3 mg PO BEDTIME PRN PRN Reason: Insomnia Multivitamins/Vitamin C (Multivitamin Tablet) 1 tab PO DAILY [facility] Last Admin: 07/17/21 09:24 Dose: 1 tab Documented by: Nicotine (Nicotine 21 Mg Patch.Td24) 21 mg TRANSDERMA DAILY PRN PRN Reason: smoking cessation Nicotine Polacrilex (Nicotine Polacrilex 2 Mg Gum) 4 mg BUCCAL Q2H PRN PRN Reason: Nicotine Cravings Paliperidone (Paliperidone Er 6 Mg Tab.Er.24) 6 mg PO DAILY [facility] Last Admin: 07/17/21 09:24 Dose: 6 mg Documented by: Paliperidone Palmitate (Paliperidone Palmitate 234 Mg/1.5 Ml Syringe) 234 mg IM Q30D [facility] Last Admin: 06/21/21 12:06 Dose: 234 mg Documented by: Trazodone HCl (Trazodone Hcl 50 Mg Tablet) 50 mg PO BEDTIME PRN PRN Reason: Insomnia Allergies Allergies Allergy/AdvReac Type Severity Reaction Status Date / Time haloperidol [From HALDOL] Allergy Severe DYSTONIA Verified 04/19/21 06:28 ziprasidone [From GEODON] Allergy Severe DYSTONIA Verified 04/19/21 06:28 Assessment & Plan Assessment & Plan (1) Schizoaffective disorder, bipolar type: Status: Acute Code(s): F25.0 - Schizoaffective disorder, bipolar type Plan 05/07/21 Invega 6 mg 05/08. Continue Thorazine prn. (pt required IM back up on 05/07/21) 05/08/21 Continue current plan of care. 05/09/21: Ct w plan per [facility]ff order 05/10/21: Ct Rx plan 05/11/21: Continue Invega titration. 05/12/21 Pt tolerating Invega. Will begin Sustenna on 05/13. 05/13/21 Sustanna given, tolerated. Support, educate, integrate into milieu for added support. 05/14/21 Tolerating Sustenna. Calmer, more focused today. Asking for help with legal issues, attempting to organize his responsibilities 05/15/21 Continue current plan. 05/16/21 Continue current plan 05/17/21 Continue current plan 05/18/21 Follow up with probation-pt agrees and signed JEANNETTE Second Sustenna injection 05/21. Tolerating with breakthrough sx with PO as well. 05/19/21 Team/Peers report evening/night agitation Depakote 500 mg ER HS 05/20/21 Continue current regime Scheduled Invega injection for 05/21 Continue to attempt alliance building, education, support 05/21/21 Continue current regimen, no changes to medication, will monitor for benefit on invega sustenna COKER. Still taking PO invega. Has not been taking PO depakote, so will not order a level. 05/22/21 Continue current regimen, pt is tolerating invega sustenna well. Not taking depakote. Appropriate on the unit. 05/23/21: No changes to above med plan. 05/24/21: No changes to above plan, continue PO invega until invega sustenna reaches steady state. Pt somewhat intrusive with high fiving staff but redirectable. 05/26/21: Continue current plan. Vibra application 05/27/21 Pt has been refusing Depakote at hs with resulting poor sleep. Will give Chlorpromazine IM if Depakote is refused. 05/28/21 Continue current plan Labs 06/01/20. 05/29/21 Continue with current plan 05/30/21 continue with current treatment plan 05/31/21 continue with current treatment plan 06/01/21 Discontinue Depakote-pt prefers Chlorpromazine at HS-50 mg as he reports it is more helpful with sleep quality assistance. 06/03/21: Education, support. Vibra application. 06/04/21: Increase Chlorpromazine to 75 mg HS to assist with mgt of lability. 06/05/21: Continue current regime 06/06 continue current medications 06/09/21: Continue current plan of care Support, Educate, Inform, encourage pt's interests. 06/11/21: More engaged in milieu today. Attentive to ADL's with team encouragement. Continue plan of care. 06/12/21: Continue current regime. Sustenna due 06/21/21. 06/13/21 - 06/14/21 No changes Continue with current treatment plan 06/15/21 Continue current plan of care Invega Sustenna injection due 06/21/21. 06/16/21 Continue current plan of care. 06/17/21 Continue current plan of care Increase Chlorpromazine to 100 mg HS Discussed tapering PO Invega most likely between second and third injection of COKER. Discussed with pt treating his mood. At this time he would like more time to assess effects of therapy and COKER. 06/18/21 Continue current plan. Offer support and structure 06/19/10 Sustenna Injection 06/21. 06/20/21 No changes to the above 06/21/21 No change 06/23/21- pt without SI/HI/VH/AH, no overt delusional content reported. overly familiar with staff/asking multiple request but polite and able to be redirected. 06/26/21- Processing discussion of 06/25/21. Elopement risk Continue current plan of care. 06/29/21- Denies SE of COKER given 06/21. Continues to decline psychopharmacology intervention for mood symptoms-prefers to talk it out . Update diagnostics- EKG, CBC, CMP, TSH, Lipids, A1c, TSH, B12,Folate Pt has expressed interest in leaning to speak and write Maltese-given resources so he may explore this interest. Support/Educate LT Plan: Vibra 06/30/21: continue current treatment plan. pt stable. 07/01/21: Continue current treatment plan. 07/02/21: Continue current treatment plan. Review of EKG changes, [place] [facility] [place]. [place]-. They report this finding to be chronic, not in need of further eval or consult. 07/03- continue current treatment plan. 07/04- no medication changes 07/06/21- Continue current plan of care. LTP-Vibra transfer 07/07/21: Continue current plan of care. Assist pt at his request in addressing his financial concerns, need for PO Box assignment and issues with social security 07/08/21 Continue plan of care no change indicated at this time 07/09/21 Continue plan of care 07/10/21 Continue plan of care 07/11/21 Continue plan of care 07/11/21 Continue plan of care 07/12/21 Continue plan of care 07/14/21 Invega 6 mg po a.m. restart Thorazine IM back up if pt refuses. 07/15/21: Continue current plan. 07/16/21: Continue current plan. 07/17/21: No changes to medication plan I spent minutes with the patient and/or on the patient floor today, greater than?50% of which was spent counseling/coordinating care. Reason for contiued inpatient stay Substantial Risk for: inability to function, rapid decompensation and med/psych decompensation
[2021-07-17] MEDS: chlorproMAZINE HCl 100 MG TABLET PO (21:03)
[2021-07-17 21:15] VITALS: BP 86/54; PULSE 79; TEMP 36.9
[2021-07-18] MEDS: Paliperidone ER 6 MG TAB.ER.24 PO (09:02)
[2021-07-18] MEDS: Multivitamin TABLET 1 TAB PO (09:02)
--- NOTE | 2021-07-18 11:40 | P.PNPSI_ITS ---
Subjective Subjective Date of Service: 07/18/21 Reason For Visit: Schizophrenia Subjective Notes: Section 8 Medical Problems Affecting Mental Status: No Interim History: met with patient and discussed with Nursing. Noted recent lability and irritability with staff and electronics. Has been isolative. Today reports that he feels like he has got what he is needed from the hospital was advocating for respite disposition rather than [facility]. Feels that there was a misunderstanding regarding his mom prior to admission. Feels that he was being mistreated by staff previously but things are much better now. Reports feeling frustrated around being in the hospital and hopeful for discharge soon. Reports wanting to engage in services and hopeful that therapist from [facility] can meet with him on the unit. Regarding medications feels that Invega is helpful regarding hallucinations, which he reports he has not really experienced today. Denied SI. Denied medication side effects. Long-term plan for Invega Sustenna. Medication Compliance: Yes Side effects from medications: No Attending Groups: Intermittent Review of Systems Acute medical concerns: No Review of Systems: Unremarkable Diagnostics Vital Signs (24Hr): Vital Signs - 24 hr 07/18/21 19:55 Temperature 99.2 F Pulse Rate 104 H Respiratory Rate 17 Blood Pressure 117/75 Pulse Oximetry 96 BMI result Body Mass Index 26.6 Labs Results: 07/01/21 08:13 07/01/21 08:13 Imaging Radiology Impressions: ITS Impressions Face X-Ray 04/21/21 15:29 IMPRESSION: No fracture seen. Orbit X-Ray 04/21/21 15:29 IMPRESSION: No fracture seen. Cervical Spine CT 04/24/21 22:24 IMPRESSION: No evidence of acute intracranial abnormalities. No evidence of acute maxillofacial fractures. However, evaluation of the inferior mandibular body is limited due to motion and although no definite fractures or surrounding soft tissue thickening/hematoma are identified, clinical correlation for pain/tenderness in the inferior mandible should be obtained as this is suboptimally assessed in this study. No acute cervical fractures or malalignment. Face CT 04/24/21 22:24 IMPRESSION: No evidence of acute intracranial abnormalities. No evidence of acute maxillofacial fractures. However, evaluation of the inferior mandibular body is limited due to motion and although no definite fractures or surrounding soft tissue thickening/hematoma are identified, clinical correlation for pain/tenderness in the inferior mandible should be obtained as this is suboptimally assessed in this study. No acute cervical fractures or malalignment. Head CT 04/24/21 22:24 IMPRESSION: No evidence of acute intracranial abnormalities. No evidence of acute maxillofacial fractures. However, evaluation of the inferior mandibular body is limited due to motion and although no definite fractures or surrounding soft tissue thickening/hematoma are identified, clinical correlation for pain/tenderness in the inferior mandible should be obtained as this is suboptimally assessed in this study. No acute cervical fractures or malalignment. Toe X-Ray 06/22/21 19:00 IMPRESSION: No appreciable phalangeal fractures of the right toes. Medications Medications Current Medications Acetaminophen (Acetaminophen 325 Mg Tablet) 650 mg PO Q6H PRN PRN Reason: Headache/Pain Mild Scale (1-3) Last Admin: 06/23/21 19:51 Dose: 650 mg Documented by: Al Hydroxide/Mg Hydroxide (Magnesium Hydrox/Alum Hydrox 30 Ml Oral.Susp) 30 ml PO Q6H PRN PRN Reason: Heartburn/Nausea Last Admin: 05/27/21 00:13 Dose: 30 ml Documented by: Benztropine Mesylate (Benztropine Mesylate 1 Mg Tablet) 1 mg PO TID PRN PRN Reason: Extrapyramidal Effects Chlorpromazine HCl (Chlorpromazine Hcl 100 Mg Tablet) 100 mg PO BID PRN PRN Reason: psychotic agitation Last Admin: 06/29/21 21:04 Dose: 100 mg Documented by: Chlorpromazine HCl (Chlorpromazine Hcl 100 Mg Tablet) 100 mg PO BEDTIME MARGAUX Last Admin: 07/18/21 20:04 Dose: 100 mg Documented by: Chlorpromazine HCl (Chlorpromazine Hcl 50 Mg/2 Ml Ampul) 100 mg IM BEDTIME PRN PRN Reason: if pt refuses PO per court order Chlorpromazine HCl (Chlorpromazine Hcl 50 Mg/2 Ml Ampul) 50 mg IM DAILY PRN PRN Reason: If pt refuses po Invega/court Diphenhydramine HCl (Diphenhydramine Hcl 25 Mg Tablet) 50 mg PO Q4H PRN PRN Reason: agitation Last Admin: 06/22/21 23:53 Dose: 50 mg Documented by: Hydroxyzine HCl (Hydroxyzine Hcl 25 Mg Tablet) 25 mg PO QID PRN PRN Reason: Anxiety Last Admin: 05/21/21 21:14 Dose: 25 mg Documented by: Ibuprofen (Ibuprofen 600 Mg Tablet) 600 mg PO Q4H PRN PRN Reason: Pain, Moderate (Pain Scale 4-6 Last Admin: 05/22/21 07:13 Dose: 600 mg Documented by: Lidocaine (Lidocaine 4 % Patch Adh..Patch) 1 patch TRANSDERMA DAILY PRN; Protocol PRN Reason: cervical pain Last Admin: 06/20/21 07:24 Dose: 1 patch Documented by: Magnesium Hydroxide (Milk Of Magnesia 30 Ml Oral.Susp) 30 ml PO DAILY PRN PRN Reason: Constipation Melatonin (Melatonin 3 Mg Tablet) 3 mg PO BEDTIME PRN PRN Reason: Insomnia Multivitamins/Vitamin C (Multivitamin Tablet) 1 tab PO DAILY [facility] Last Admin: 07/18/21 09:02 Dose: 1 tab Documented by: Nicotine (Nicotine 21 Mg Patch.Td24) 21 mg TRANSDERMA DAILY PRN PRN Reason: smoking cessation Nicotine Polacrilex (Nicotine Polacrilex 2 Mg Gum) 4 mg BUCCAL Q2H PRN PRN Reason: Nicotine Cravings Paliperidone (Paliperidone Er 6 Mg Tab.Er.24) 6 mg PO DAILY [facility] Last Admin: 07/18/21 09:02 Dose: 6 mg Documented by: Paliperidone Palmitate (Paliperidone Palmitate 234 Mg/1.5 Ml Syringe) 234 mg IM Q30D [facility] Last Admin: 06/21/21 12:06 Dose: 234 mg Documented by: Trazodone HCl (Trazodone Hcl 50 Mg Tablet) 50 mg PO BEDTIME PRN PRN Reason: Insomnia Allergies Allergies Allergy/AdvReac Type Severity Reaction Status Date / Time haloperidol [From HALDOL] Allergy Severe DYSTONIA Verified 04/19/21 06:28 ziprasidone [From GEODON] Allergy Severe DYSTONIA Verified 04/19/21 06:28 Assessment & Plan Assessment & Plan (1) Schizoaffective disorder, bipolar type: Status: Acute Code(s): F25.0 - Schizoaffective disorder, bipolar type Plan 05/07/21 Invega 6 mg 05/08. Continue Thorazine prn. (pt required IM back up on 05/07/21) 05/08/21 Continue current plan of care. 05/09/21: Ct w plan per [facility] order 05/10/21: Ct Rx plan 05/11/21: Continue Invega titration. 05/12/21 Pt tolerating Invega. Will begin Sustenna on 05/13. 05/13/21 Sustanna given, tolerated. Support, educate, integrate into milieu for added support. 05/14/21 Tolerating Sustenna. Calmer, more focused today. Asking for help with legal issues, attempting to organize his responsibilities 05/15/21 Continue current plan. 05/16/21 Continue current plan 05/17/21 Continue current plan 05/18/21 Follow up with probation-pt agrees and signed JEANNETTE Second Sustenna injection 05/21. Tolerating with breakthrough sx with PO as well. 05/19/21 Team/Peers report evening/night agitation Depakote 500 mg ER HS 05/20/21 Continue current regime Scheduled Invega injection for 05/21 Continue to attempt alliance building, education, support 05/21/21 Continue current regimen, no changes to medication, will monitor for benefit on invega sustenna COKER. Still taking PO invega. Has not been taking PO depakote, so will not order a level. 05/22/21 Continue current regimen, pt is tolerating invega sustenna well. Not taking depakote. Appropriate on the unit. 05/23/21: No changes to above med plan. 05/24/21: No changes to above plan, continue PO invega until invega sustenna reaches steady state. Pt somewhat intrusive with high fiving staff but redirectable. 05/26/21: Continue current plan. Vibra application 05/27/21 Pt has been refusing Depakote at hs with resulting poor sleep. Will give Chlorpromazine IM if Depakote is refused. 05/28/21 Continue current plan Labs 06/01/20. 05/29/21 Continue with current plan 05/30/21 continue with current treatment plan 05/31/21 continue with current treatment plan 06/01/21 Discontinue Depakote-pt prefers Chlorpromazine at HS-50 mg as he reports it is more helpful with sleep quality assistance. 06/03/21: Education, support. Vibra application. 06/04/21: Increase Chlorpromazine to 75 mg HS to assist with mgt of lability. 06/05/21: Continue current regime 06/06 continue current medications 06/09/21: Continue current plan of care Support, Educate, Inform, encourage pt's interests. 06/11/21: More engaged in milieu today. Attentive to ADL's with team encouragement. Continue plan of care. 06/12/21: Continue current regime. Sustenna due 06/21/21. 06/13/21 - 06/14/21 No changes Continue with current treatment plan 06/15/21 Continue current plan of care Invega Sustenna injection due 06/21/21. 06/16/21 Continue current plan of care. 06/17/21 Continue current plan of care Increase Chlorpromazine to 100 mg HS Discussed tapering PO Invega most likely between second and third injection of COKER. Discussed with pt treating his mood. At this time he would like more time to assess effects of therapy and COKER. 06/18/21 Continue current plan. Offer support and structure 06/19/10 Sustenna Injection 06/21. 06/20/21 No changes to the above 06/21/21 No change 06/23/21- pt without SI/HI/VH/AH, no overt delusional content reported. overly familiar with staff/asking multiple request but polite and able to be red irected. 06/26/21- Processing discussion of 06/25/21. Elopement risk Continue current plan of care. 06/29/21- Denies SE of COKER given 06/21. Continues to decline psychopharmacology intervention for mood symptoms-prefers to talk it out . Update diagnostics- EKG, CBC, CMP, TSH, Lipids, A1c, TSH, B12,Folate Pt has expressed interest in leaning to speak and write Greenlandic-given resources so he may explore this interest. Support/Educate LT Plan: Vibra 06/30/21: continue current treatment plan. pt stable. 07/01/21: Continue current treatment plan. 07/02/21: Continue current treatment plan. Review of EKG changes, RBBB with [facility] [place], Dr. Murillo-. They report this finding to be chronic, not in need of further eval or consult. 07/03- continue current treatment plan. 07/04- no medication changes 07/06/21- Continue current plan of care. LTP-Vibra transfer 07/07/21: Continue current plan of care. Assist pt at his request in addressing his financial concerns, need for PO Box assignment and issues with social security 07/08/21 Continue plan of care no change indicated at this time 07/09/21 Continue plan of care 07/10/21 Continue plan of care 07/11/21 Continue plan of care 07/11/21 Continue plan of care 07/12/21 Continue plan of care 07/14/21 Invega 6 mg po a.m. restart Thorazine IM back up if pt refuses. 07/15/21: Continue current plan. 07/16/21: Continue current plan. 07/18/21: No changes to medication plan I spent minutes with the patient and/or on the patient floor today, greater than?50% of which was spent counseling/coordinating care. Reason for contiued inpatient stay Substantial Risk for: rapid decompensation
[2021-07-18 19:55] VITALS: BP 117/75; PULSE 104; RESP 17; TEMP 37.3; O2SAT 96
[2021-07-18] MEDS: chlorproMAZINE HCl 100 MG TABLET PO (20:04)
[2021-07-19 06:00] VITALS: BP 122/78; PULSE 112; RESP 18; TEMP 37; O2SAT 98
[2021-07-19] MEDS: Paliperidone ER 6 MG TAB.ER.24 PO (09:04)
[2021-07-19] MEDS: Multivitamin TABLET 1 TAB PO (09:04)
--- NOTE | 2021-07-19 12:56 | HO.PSYCHPN ---
Subjective Subjective Date of Service: 07/19/21 Reason For Visit: Schizophrenia Subjective Notes: Section 8 Medical Problems Affecting Mental Status: No Interim History: Nataliia moser continues to advocate for discharge her respite rather than [facility]. Feels that things are getting better with staff. Feels gradually better each day, denies hallucinations. Denies hallucinations. Sleep okay. Energy and appetite okay. No medication concerns. talk about things that he enjoys such as music and playing the hebert. Music that he enjoys is [employer]. Later in the day became very anxious around being brought to the hospital and police using his Arash may move and reported they used his middle name Andrea and O'Dyle rather than Vargas. Reassurance provided around same as it was no police report or court related to hospital admission circumstances (ie court case is not hospital related). [place] reassured by this. Also want to make sure that social work team had copy of his most recent updated ID card as a 1 on file has . Medication Compliance: Yes Side effects from medications: No Attending Groups: Intermittent Review of Systems Acute medical concerns: No Review of Systems Review of Systems Unremarkable Mental Status Exam Mental Status Exam Narrative: Pleasant and engaged. Was some anxiety around hospital admission circumstances, please see main note for more details. Largely organized. Denied depression. No SI. No HI. Denied psychosis. Insight and judgment limited around disposition challenges and concerns. Diagnostics Vital Signs (24Hr): Vital Signs - 24 hr 07/18/21 19:55 07/19/21 06:00 Temperature 99.2 F 98.6 F Pulse Rate 104 H 112 H Respiratory Rate 17 18 Blood Pressure 117/75 122/78 Pulse Oximetry 96 98 BMI result Body Mass Index 26.6 Labs Results: 07/01/21 08:13 07/01/21 08:13 Imaging Radiology Impressions: ITS Impressions Face X-Ray 04/21/21 15:29 IMPRESSION: No fracture seen. Orbit X-Ray 04/21/21 15:29 IMPRESSION: No fracture seen. Cervical Spine CT 04/24/21 22:24 IMPRESSION: No evidence of acute intracranial abnormalities. No evidence of acute maxillofacial fractures. However, evaluation of the inferior mandibular body is limited due to motion and although no definite fractures or surrounding soft tissue thickening/hematoma are identified, clinical correlation for pain/tenderness in the inferior mandible should be obtained as this is suboptimally assessed in this study. No acute cervical fractures or malalignment. Face CT 04/24/21 22:24 IMPRESSION: No evidence of acute intracranial abnormalities. No evidence of acute maxillofacial fractures. However, evaluation of the inferior mandibular body is limited due to motion and although no definite fractures or surrounding soft tissue thickening/hematoma are identified, clinical correlation for pain/tenderness in the inferior mandible should be obtained as this is suboptimally assessed in this study. No acute cervical fractures or malalignment. Head CT 04/24/21 22:24 IMPRESSION: No evidence of acute intracranial abnormalities. No evidence of acute maxillofacial fractures. However, evaluation of the inferior mandibular body is limited due to motion and although no definite fractures or surrounding soft tissue thickening/hematoma are identified, clinical correlation for pain/tenderness in the inferior mandible should be obtained as this is suboptimally assessed in this study. No acute cervical fractures or malalignment. Toe X-Ray 06/22/21 19:00 IMPRESSION: No appreciable phalangeal fractures of the right toes. Medications Medications Current Medications Acetaminophen (Acetaminophen 325 Mg Tablet) 650 mg PO Q6H PRN PRN Reason: Headache/Pain Mild Scale (1-3) Last Admin: 06/23/21 19:51 Dose: 650 mg Documented by: Al Hydroxide/Mg Hydroxide (Magnesium Hydrox/Alum Hydrox 30 Ml Oral.Susp) 30 ml PO Q6H PRN PRN Reason: Heartburn/Nausea Last Admin: 05/27/21 00:13 Dose: 30 ml Documented by: Benztropine Mesylate (Benztropine Mesylate 1 Mg Tablet) 1 mg PO TID PRN PRN Reason: Extrapyramidal Effects Chlorpromazine HCl (Chlorpromazine Hcl 100 Mg Tablet) 100 mg PO BID PRN PRN Reason: psychotic agitation Last Admin: 06/29/21 21:04 Dose: 100 mg Documented by: Chlorpromazine HCl (Chlorpromazine Hcl 100 Mg Tablet) 100 mg PO BEDTIME [facility] Last Admin: 07/18/21 20:04 Dose: 100 mg Documented by: Chlorpromazine HCl (Chlorpromazine Hcl 50 Mg/2 Ml Ampul) 100 mg IM BEDTIME PRN PRN Reason: if pt refuses PO per court order Chlorpromazine HCl (Chlorpromazine Hcl 50 Mg/2 Ml Ampul) 50 mg IM DAILY PRN PRN Reason: If pt refuses po In[facility]/court Diphenhydramine HCl (Diphenhydramine Hcl 25 Mg Tablet) 50 mg PO Q4H PRN PRN Reason: agitation Last Admin: 06/22/21 23:53 Dose: 50 mg Documented by: Hydroxyzine HCl (Hydroxyzine Hcl 25 Mg Tablet) 25 mg PO QID PRN PRN Reason: Anxiety Last Admin: 05/21/21 21:14 Dose: 25 mg Documented by: Ibuprofen (Ibuprofen 600 Mg Tablet) 600 mg PO Q4H PRN PRN Reason: Pain, Moderate (Pain Scale 4-6 Last Admin: 05/22/21 07:13 Dose: 600 mg Documented by: Lidocaine (Lidocaine 4 % Patch Adh..Patch) 1 patch TRANSDERMA DAILY PRN; Protocol PRN Reason: cervical pain Last Admin: 06/20/21 07:24 Dose: 1 patch Documented by: Magnesium Hydroxide (Milk Of Magnesia 30 Ml Oral.Susp) 30 ml PO DAILY PRN PRN Reason: Constipation Melatonin (Melatonin 3 Mg Tablet) 3 mg PO BEDTIME PRN PRN Reason: Insomnia Multivitamins/Vitamin C (Multivitamin Tablet) 1 tab PO DAILY ON LICENSE OF [facility] Last Admin: 07/19/21 09:04 Dose: 1 tab Documented by: Nicotine (Nicotine 21 Mg Patch.Td24) 21 mg TRANSDERMA DAILY PRN PRN Reason: smoking cessation Nicotine Polacrilex (Nicotine Polacrilex 2 Mg Gum) 4 mg BUCCAL Q2H PRN PRN Reason: Nicotine Cravings Paliperidone (Paliperidone Er 6 Mg Tab.Er.24) 6 mg PO DAILY ON LICENSE OF [facility] Last Admin: 07/19/21 09:04 Dose: 6 mg Documented by: Paliperidone Palmitate (Paliperidone Palmitate 234 Mg/1.5 Ml Syringe) 234 mg IM Q30D ON LICENSE OF [facility] Last Admin: 06/21/21 12:06 Dose: 234 mg Documented by: Trazodone HCl (Trazodone Hcl 50 Mg Tablet) 50 mg PO BEDTIME PRN PRN Reason: Insomnia Allergies Allergies Allergy/AdvReac Type Severity Reaction Status Date / Time haloperidol [From HALDOL] Allergy Severe DYSTONIA Verified 04/19/21 06:28 ziprasidone [From GEODON] Allergy Severe DYSTONIA Verified 04/19/21 06:28 Assessment & Plan Assessment & Plan (1) Schizoaffective disorder, bipolar type: Status: Acute Code(s): F25.0 - Schizoaffective disorder, bipolar type Plan 05/07/21 Invega 6 mg 05/08. Continue Thorazine prn. (pt required IM back up on 05/07/21) 05/08/21 Continue current plan of care. 05/09/21: Ct w plan per [facility] order 05/10/21: Ct Rx plan 05/11/21: Continue Invega titration. 05/12/21 Pt tolerating Invega. Will begin Sustenna on 05/13. 05/13/21 Sustanna given, tolerated. Support, educate, integrate into milieu for added support. 05/14/21 Tolerating Sustenna. Calmer, more focused today. Asking for help with legal issues, attempting to organize his responsibilities 05/15/21 Continue current plan. 05/16/21 Continue current plan 05/17/21 Continue current plan 05/18/21 Follow up with probation-pt agrees and signed JEANNETTE Second Sustenna injection 05/21. Tolerating with breakthrough sx with PO as well. 05/19/21 Team/Peers report evening/night agitation Depakote 500 mg ER HS 05/20/21 Continue current regime Scheduled Invega injection for 05/21 Continue to attempt alliance building, education, support 05/21/21 Continue current regimen, no changes to medication, will monitor for benefit on invega sustenna COKER. Still taking PO invega. Has not been taking PO depakote, so will not order a level. 05/22/21 Continue current regimen, pt is tolerating invega sustenna well. Not taking depakote. Appropriate on the unit. 05/23/21: No changes to above med plan. 05/24/21: No changes to above plan, continue PO invega until invega sustenna reaches steady state. Pt somewhat intrusive with high fiving staff but redirectable. 05/26/21: Continue current plan. [facility] application 05/27/21 Pt has been refusing Depakote at hs with resulting poor sleep. Will give Chlorpromazine IM if Depakote is refused. 05/28/21 Continue current plan Labs 06/01/20. 05/29/21 Continue with current plan 05/30/21 continue with current treatment plan 05/31/21 continue with current treatment plan 06/01/21 Discontinue Depakote-pt prefers Chlorpromazine at HS-50 mg as he reports it is more helpful with sleep quality assistance. 06/03/21: Education, support. [facility] application. 06/04/21: Increase Chlorpromazine to 75 mg HS to assist with mgt of lability. 06/05/21: Continue current regime 06/06 continue current medications 06/09/21: Continue current plan of care Support, Educate, Inform, encourage pt's interests. 06/11/21: More engaged in milieu today. Attentive to ADL's with team encouragement. Continue plan of care. 06/12/21: Continue current regime. Sustenna due 06/21/21. 06/13/21 - 06/14/21 No changes Continue with current treatment plan 06/15/21 Continue current plan of care Invega Sustenna injection due 06/21/21. 06/16/21 Continue current plan of care. 06/17/21 Continue current plan of care Increase Chlorpromazine to 100 mg HS Discussed tapering PO Invega most likely between second and third injection of COKER. Discussed with pt treating his mood. At this time he would like more time to assess effects of therapy and COKER. 06/18/21 Continue current plan. Offer support and structure 06/19/10 Sustenna Injection 06/21. 06/20/21 No changes to the above 06/21/21 No change 06/23/21- pt without SI/HI/VH/AH, no overt delusional content reported. overly familiar with staff/asking multiple request but polite and able to be redirected. 06/26/21- Processing discussion of 06/25/21. Elopement risk Continue current plan of care. 06/29/21- Denies SE of COKER given 06/21. Continues to decline psychopharmacology intervention for mood symptoms-prefers to talk it out . Update diagnostics- EKG, CBC, CMP, TSH, Lipids, A1c, TSH, B12,Folate Pt has expressed interest in leaning to speak and write Israeli-given resources so he may explore this interest. Support/Educate LT Plan: [facility] 06/30/21: continue current treatment plan. pt stable. 07/01/21: Continue current treatment plan. 07/02/21: Continue current treatment plan. Review of EKG changes, [place] [facility], Dr. Murillo-. They report this finding to be chronic, not in need of further eval or consult. 07/03- continue current treatment plan. 07/04- no medication changes 07/06/21- Continue current plan of care. [facility]TP-[facility] transfer 07/07/21: Continue current plan of care. Assist pt at his request in addressing his financial concerns, need for PO Box assignment and issues with social security 07/08/21 Continue plan of care no change indicated at this time 07/09/21 Continue plan of care 07/10/21 Continue plan of care 07/11/21 Continue plan of care 07/11/21 Continue plan of care 07/12/21 Continue plan of care 07/14/21 Invega 6 mg po a.m. restart Thorazine IM back up if pt refuses. 07/15/21: Continue current plan. 07/16/21: Continue current plan. 07/19/21: No changes to medication plan I spent minutes with the patient and/or on the patient floor today, greater than?50% of which was spent counseling/coordinating care. Patient educated on: therapeutic strategies Reason for contiued inpatient stay Substantial Risk for: rapid decompensation
[2021-07-19 18:45] VITALS: BP 109/60; PULSE 76; RESP 16; TEMP 36.9; O2SAT 97
[2021-07-19] MEDS: chlorproMAZINE HCl 100 MG TABLET PO (20:03)
[2021-07-20 06:00] VITALS: BP 110/72; PULSE 96; RESP 18; TEMP 36.8; O2SAT 97
[2021-07-20] MEDS: Multivitamin TABLET 1 TAB PO (08:19)
[2021-07-20] MEDS: Paliperidone ER 6 MG TAB.ER.24 PO (08:19)
--- NOTE | 2021-07-20 09:57 | HO.PSYCHPN ---
Subjective Subjective Date of Service: 07/20/21 Reason For Visit: Schizophrenia Medical Problems Affecting Mental Status: No Interim History: Patient was seen and discussed in rounds today. He continues to be preoccupied and concerned about being in the hospital for a long time and the prospects of going to [facility] which he is not happy about. He is isolative and withdrawn. He engages in a lot of self dialogue. No complaints or side effects. He had questions about of eyebrow which we discussed. No changes were made today Medication Compliance: Yes Side effects from medications: No Review of Systems Review of Systems Yes all other systems are reviewed and are negative Mental Status Exam Mental Status Exam Narrative: In today's visit he was seen in his room. He is alert, pleasant and interactive. Speech is normal. Good eye contact. Affect is constricted. Denies any auditory or visual hallucinations but when on his own he engages in a lot of self dialogue. Concerns and preoccupations about his future discussed. Cognitively he is organized. Judgment is marginal. Diagnostics Vital Signs (24Hr): Vital Signs - 24 hr 07/19/21 18:45 07/20/21 06:00 Temperature 98.5 F 98.2 F Pulse Rate 76 96 Respiratory Rate 16 18 Blood Pressure 109/60 110/72 Pulse Oximetry 97 97 BMI result Body Mass Index 26.6 Labs Results: 07/01/21 08:13 07/01/21 08:13 Imaging Radiology Impressions: ITS Impressions Face X-Ray 04/21/21 15:29 IMPRESSION: No fracture seen. Orbit X-Ray 04/21/21 15:29 IMPRESSION: No fracture seen. Cervical Spine CT 04/24/21 22:24 IMPRESSION: No evidence of acute intracranial abnormalities. No evidence of acute maxillofacial fractures. However, evaluation of the inferior mandibular body is limited due to motion and although no definite fractures or surrounding soft tissue thickening/hematoma are identified, clinical correlation for pain/tenderness in the inferior mandible should be obtained as this is suboptimally assessed in this study. No acute cervical fractures or malalignment. Face CT 04/24/21 22:24 IMPRESSION: No evidence of acute intracranial abnormalities. No evidence of acute maxillofacial fractures. However, evaluation of the inferior mandibular body is limited due to motion and although no definite fractures or surrounding soft tissue thickening/hematoma are identified, clinical correlation for pain/tenderness in the inferior mandible should be obtained as this is suboptimally assessed in this study. No acute cervical fractures or malalignment. Head CT 04/24/21 22:24 IMPRESSION: No evidence of acute intracranial abnormalities. No evidence of acute maxillofacial fractures. However, evaluation of the inferior mandibular body is limited due to motion and although no definite fractures or surrounding soft tissue thickening/hematoma are identified, clinical correlation for pain/tenderness in the inferior mandible should be obtained as this is suboptimally assessed in this study. No acute cervical fractures or malalignment. Toe X-Ray 06/22/21 19:00 IMPRESSION: No appreciable phalangeal fractures of the right toes. Medications Medications Current Medications Benztropine Mesylate (Benztropine Mesylate 1 Mg Tablet) 1 mg PO TID PRN PRN Reason: Extrapyramidal Effects Chlorpromazine HCl (Chlorpromazine Hcl 100 Mg Tablet) 100 mg PO BID PRN PRN Reason: psychotic agitation Last Admin: 06/29/21 21:04 Dose: 100 mg Documented by: Chlorpromazine HCl (Chlorpromazine Hcl 100 Mg Tablet) 100 mg PO BEDTIME [facility] Last Admin: 07/19/21 20:03 Dose: 100 mg Documented by: Chlorpromazine HCl (Chlorpromazine Hcl 50 Mg/2 Ml Ampul) 100 mg IM BEDTIME PRN PRN Reason: if pt refuses PO per court order Chlorpromazine HCl (Chlorpromazine Hcl 50 Mg/2 Ml Ampul) 50 mg IM DAILY PRN PRN Reason: If pt refuses po Invega/court Ibuprofen (Ibuprofen 600 Mg Tablet) 600 mg PO Q4H PRN PRN Reason: Pain, Moderate (Pain Scale 4-6 Last Admin: 05/22/21 07:13 Dose: 600 mg Documented by: Lidocaine (Lidocaine 4 % Patch Adh..Patch) 1 patch TRANSDERMA DAILY PRN; Protocol PRN Reason: cervical pain Last Admin: 06/20/21 07:24 Dose: 1 patch Documented by: Melatonin (Melatonin 3 Mg Tablet) 3 mg PO BEDTIME PRN PRN Reason: Insomnia Multivitamins/Vitamin C (Multivitamin Tablet) 1 tab PO DAILY [facility] Last Admin: 07/20/21 08:19 Dose: 1 tab Documented by: Paliperidone (Paliperidone Er 6 Mg Tab.Er.24) 6 mg PO DAILY [facility] Last Admin: 07/20/21 08:19 Dose: 6 mg Documented by: Paliperidone Palmitate (Paliperidone Palmitate 234 Mg/1.5 Ml Syringe) 234 mg IM Q30D [facility] Last Admin: 06/21/21 12:06 Dose: 234 mg Documented by: Allergies Allergies Allergy/AdvReac Type Severity Reaction Status Date / Time haloperidol [From HALDOL] Allergy Severe DYSTONIA Verified 04/19/21 06:28 ziprasidone [From GEODON] Allergy Severe DYSTONIA Verified 04/19/21 06:28 Assessment & Plan Assessment & Plan (1) Schizoaffective disorder, bipolar type: Status: Acute Code(s): F25.0 - Schizoaffective disorder, bipolar type Plan 05/07/21 Invega 6 mg 05/08. Continue Thorazine prn. (pt required IM back up on 05/07/21) 05/08/21 Continue current plan of care. 05/09/21: Ct w plan per [facility] order 05/10/21: Ct Rx plan 05/11/21: Continue Invega titration. 05/12/21 Pt tolerating Invega. Will begin Sustenna on 05/13. 05/13/21 Sustanna given, tolerated. Support, educate, integrate into milieu for added support. 05/14/21 Tolerating Sustenna. Calmer, more focused today. Asking for help with legal issues, attempting to organize his responsibilities 05/15/21 Continue current plan. 05/16/21 Continue current plan 05/17/21 Continue current plan 05/18/21 Follow up with probation-pt agrees and signed JEANNETTE Second Sustenna injection 05/21. Tolerating with breakthrough sx with PO as well. 05/19/21 Team/Peers report evening/night agitation Depakote 500 mg ER HS 05/20/21 Continue current regime Scheduled Invega injection for 05/21 Continue to attempt alliance building, education, support 05/21/21 Continue current regimen, no changes to medication, will monitor for benefit on invega sustenna COKER. Still taking PO invega. Has not been taking PO depakote, so will not order a level. 05/22/21 Continue current regimen, pt is tolerating invega sustenna well. Not taking depakote. Appropriate on the unit. 05/23/21: No changes to above med plan. 05/24/21: No changes to above plan, continue PO invega until invega sustenna reaches steady state. Pt somewhat intrusive with high fiving staff but redirectable. 05/26/21: Continue current plan. [facility] application 05/27/21 Pt has been refusing Depakote at hs with resulting poor sleep. Will give Chlorpromazine IM if Depakote is refused. 05/28/21 Continue current plan Labs 06/01/20. 05/29/21 Continue with current plan 05/30/21 continue with current treatment plan 05/31/21 continue with current treatment plan 06/01/21 Discontinue Depakote-pt prefers Chlorpromazine at HS-50 mg as he reports it is more helpful with sleep quality assistance. 06/03/21: Education, support. [facility] application. 06/04/21: Increase Chlorpromazine to 75 mg HS to assist with mgt of lability. 06/05/21: Continue current regime 06/06 continue current medications 06/09/21: Continue current plan of care Support, Educate, Inform, encourage pt's interests. 06/11/21: More engaged in milieu today. Attentive to ADL's with team encouragement. Continue plan of care. 06/12/21: Continue current regime. Sustenna due 06/21/21. 06/13/21 - 06/14/21 No changes Continue with current treatment plan 06/15/21 Continue current plan of care Invega Sustenna injection due 06/21/21. 06/16/21 Continue current plan of care. 06/17/21 Continue current plan of care Increase Chlorpromazine to 100 mg HS Discussed tapering PO Invega most likely between second and third injection of COKER. Discussed with pt treating his mood. At this time he would like more time to assess effects of therapy and COKER. 06/18/21 Continue current plan. Offer support and structure 06/19/10 Sustenna Injection 06/21. 06/20/21 No changes to the above 06/21/21 No change 06/23/21- pt without SI/HI/VH/AH, no overt delusional content reported. overly familiar with staff/asking multiple request but polite and able to be redirected. 06/26/21- Processing discussion of 06/25/21. Elopement risk Continue current plan of care. 06/29/21- Denies SE of COKER given 06/21. Continues to decline psychopharmacology intervention for mood symptoms-prefers to talk it out . Update diagnostics- EKG, CBC, CMP, TSH, Lipids, A1c, TSH, B12,Folate Pt has expressed interest in leaning to speak and write Khmer-given resources so he may explore this interest. Support/Educate LT Plan: [facility] 06/30/21: continue current treatment plan. pt stable. 07/01/21: Continue current treatment plan. 07/02/21: Continue current treatment plan. Review of EKG changes, RBBB with [facility], Dr. Murillo-. They report this finding to be chronic, not in need of further eval or consult. 07/03- continue current treatment plan. 07/04- no medication changes 07/06/21- Continue current plan of care. [facility] transfer 07/07/21: Continue current plan of care. Assist pt at his request in addressing his financial concerns, need for PO Box assignment and issues with social security 07/08/21 Continue plan of care no change indicated at this time 07/09/21 Continue plan of care 07/10/21 Continue plan of care 07/11/21 Continue plan of care 07/11/21 Continue plan of care 07/12/21 Continue plan of care 07/14/21 Invega 6 mg po a.m. restart Thorazine IM back up if pt refuses. 07/15/21: Continue current plan. 07/16/21: Continue current plan. 07/19/21: No changes to medication plan 07/20/2021: Continue current regimen and plans I spent minutes with the patient and/or on the patient floor today, greater than?50% of which was spent counseling/coordinating care. Patient educated on: therapeutic strategies Reason for contiued inpatient stay Substantial Risk for: med/psych decompensation
[2021-07-20 16:30] VITALS: BP 121/66; PULSE 94; TEMP 36.6
[2021-07-20] MEDS: chlorproMAZINE HCl 100 MG TABLET PO (21:57)
[2021-07-21] MEDS: Multivitamin TABLET 1 TAB PO (08:53)
[2021-07-21] MEDS: Paliperidone ER 6 MG TAB.ER.24 PO (08:53)
--- NOTE | 2021-07-21 14:02 | P.PNPSI_ITS ---
Subjective Subjective Date of Service: 07/22/21 Reason For Visit: Schizophrenia Subjective Notes: Section 8 Healthcare Proxy: No Guardianship: No Medical Problems Affecting Mental Status: No Interim History: Team reports Asif has intervals of response to internal stimuli and has been responding in a female voice . Today, he denies sx of concern. We discussed Invega Sustenna due date of 07/22 and reviewed efficacy. He reports he believes it to be helpful, without added SE, no weight gain (his goal is 170-175, currently he reports he is at 178). Discussed his request for a team meeting with his [facility] health care law specialist and [facility] team-will discuss with team. Discussed review of mood stabilizer options to add to regime to assist with sx. Pt reports recent increase in Invega has helped and at this time he does not want to add another mood stabilizer. Medication Compliance: Yes Side effects from medications: No Attending Groups: No Review of Systems Acute medical concerns: No Medical Review of Systems: unchanged Review of Systems Reports behavioral changes Psychiatric: Reports abnormal sleep pattern (DIANNE), Reports anxiety, Reports behavioral changes, Reports depression, Reports difficulty concentrating, Reports auditory hallucinations, Reports irritability, Reports anhedonia, Re ports mood swings and Reports visual hallucinations Mental Status Exam Mental Status Exam Patient Appearance: Appropriate Patient Orientation: Person, Place, Time and Situation Level of Consciousness: Awake and Alert Patient Behavior: Talkative, Cooperative and Good Eye Contact Mood Description: Constricted Affect Description: Constricted Patient Cognition Impaired: Yes Ability to Follow Directions: Good Speech Pattern: Spontaneous Speech and Soft-Spoken Memory Description: Remote Impaired and Episodic Impaired Hallucinations: Auditory Delusions: Present Perceptual Disturbances: Depersonalization and Derealization Thought Process: Goal Oriented Thought Content: positive for Goal Oriented and positive for Perseveration Depressive Symptoms: Difficulty Sleeping Abnormal Motor Activity Signs and Symptoms: Restlessness Judgement: Poor Diagnostics Vital Signs (24Hr): Vital Signs - 24 hr 07/20/21 16:30 Temperature 97.8 F Pulse Rate 94 Blood Pressure 121/66 BMI result Body Mass Index 26.6 Labs Results: 07/01/21 08:13 07/01/21 08:13 Imaging Radiology Impressions: ITS Impressions Face X-Ray 04/21/21 15:29 IMPRESSION: No fracture seen. Orbit X-Ray 04/21/21 15:29 IMPRESSION: No fracture seen. Cervical Spine CT 04/24/21 22:24 IMPRESSION: No evidence of acute intracranial abnormalities. No evidence of acute maxillofacial fractures. However, evaluation of the inferior mandibular body is limited due to motion and although no definite fractures or surrounding soft tissue thickening/hematoma are identified, clinical correlation for pain/tenderness in the inferior mandible should be obtained as this is suboptimally assessed in this study. No acute cervical fractures or malalignment. Face CT 04/24/21 22:24 IMPRESSION: No evidence of acute intracranial abnormalities. No evidence of acute maxillofacial fractures. However, evaluation of the inferior mandibular body is limited due to motion and although no definite fractures or surrounding soft tissue thickening/hematoma are identified, clinical correlation for pain/tenderness in the inferior mandible should be obtained as this is suboptimally assessed in this study. No acute cervical fractures or malalignment. Head CT 04/24/21 22:24 IMPRESSION: No evidence of acute intracranial abnormalities. No evidence of acute maxillofacial fractures. However, evaluation of the inferior mandibular body is limited due to motion and although no definite fractures or surrounding soft tissue thickening/hematoma are identified, clinical correlation for pain/tenderness in the inferior mandible should be obtained as this is suboptimally assessed in this study. No acute cervical fractures or malalignment. Toe X-Ray 06/22/21 19:00 IMPRESSION: No appreciable phalangeal fractures of the right toes. Medications Medications Current Medications Benztropine Mesylate (Benztropine Mesylate 1 Mg Tablet) 1 mg PO TID PRN PRN Reason: Extrapyramidal Effects Chlorpromazine HCl (Chlorpromazine Hcl 100 Mg Tablet) 100 mg PO BID PRN PRN Reason: psychotic agitation Last Admin: 06/29/21 21:04 Dose: 100 mg Documented by: Chlorpromazine HCl (Chlorpromazine Hcl 100 Mg Tablet) 100 mg PO BEDTIME MARGAUX Last Admin: 07/20/21 21:57 Dose: 100 mg Documented by: Chlorpromazine HCl (Chlorpromazine Hcl 50 Mg/2 Ml Ampul) 100 mg IM BEDTIME PRN PRN Reason: if pt refuses PO per court order Chlorpromazine HCl (Chlorpromazine Hcl 50 Mg/2 Ml Ampul) 50 mg IM DAILY PRN PRN Reason: If pt refuses po Invega/court Ibuprofen (Ibuprofen 600 Mg Tablet) 600 mg PO Q4H PRN PRN Reason: Pain, Moderate (Pain Scale 4-6 Last Admin: 05/22/21 07:13 Dose: 600 mg Documented by: Lidocaine (Lidocaine 4 % Patch Adh..Patch) 1 patch TRANSDERMA DAILY PRN; Protocol PRN Reason: cervical pain Last Admin: 06/20/21 07:24 Dose: 1 patch Documented by: Melatonin (Melatonin 3 Mg Tablet) 3 mg PO BEDTIME PRN PRN Reason: Insomnia Multivitamins/Vitamin C (Multivitamin Tablet) 1 tab PO DAILY [facility] Last Admin: 07/21/21 08:53 Dose: 1 tab Documented by: Paliperidone (Paliperidone Er 6 Mg Tab.Er.24) 6 mg PO DAILY [facility] Last Admin: 07/21/21 08:53 Dose: 6 mg Documented by: Paliperidone Palmitate (Paliperidone Palmitate 234 Mg/1.5 Ml Syringe) 234 mg IM Q30D [facility] Last Admin: 06/21/21 12:06 Dose: 234 mg Documented by: Allergies Allergies Allergy/AdvReac Type Severity Reaction Status Date / Time haloperidol [From HALDOL] Allergy Severe DYSTONIA Verified 04/19/21 06:28 ziprasidone [From GEODON] Allergy Severe DYSTONIA Verified 04/19/21 06:28 Assessment & Plan Assessment & Plan (1) Schizoaffective disorder, bipolar type: Status: Acute Code(s): F25.0 - Schizoaffective disorder, bipolar type Plan 05/07/21 Invega 6 mg 05/08. Continue Thorazine prn. (pt required IM back up on 05/07/21) 05/08/21 Continue current plan of care. 05/09/21: Ct w plan per Wolff order 05/10/21: Ct Rx plan 05/11/21: Continue Invega titration. 05/12/21 Pt tolerating Invega. Will begin Sustenna on 05/13. 05/13/21 Sustanna given, tolerated. Support, educate, integrate into milieu for added support. 05/14/21 Tolerating Sustenna. Calmer, more focused today. Asking for help with legal issues, attempting to organize his responsibilities 05/15/21 Continue current plan. 05/16/21 Continue current plan 05/17/21 Continue current plan 05/18/21 Follow up with probation-pt agrees and signed JEANNETTE Second Sustenna injection 05/21. Tolerating with breakthrough sx with PO as well . 05/19/21 Team/Peers report evening/night agitation Depakote 500 mg ER HS 05/20/21 Continue current regime Scheduled Invega injection for 05/21 Continue to attempt alliance building, education, support 05/21/21 Continue current regimen, no changes to medication, will monitor for benefit on invega sustenna COKER. Still taking PO invega. Has not been taking PO depakote, so will not order a level. 05/22/21 Continue current regimen, pt is tolerating invega sustenna well. Not taking depakote. Appropriate on the unit. 05/23/21: No changes to above med plan. 05/24/21: No changes to above plan, continue PO invega until invega sustenna reaches steady state. Pt somewhat intrusive with high fiving staff but redirectable. 05/26/21: Continue current plan. Vibra application 05/27/21 Pt has been refusing Depakote at hs with resulting poor sleep. Will give Chlorpromazine IM if Depakote is refused. 05/28/21 Continue current plan Labs 06/01/20. 05/29/21 Continue with current plan 05/30/21 continue with current treatment plan 05/31/21 continue with current treatment plan 06/01/21 Discontinue Depakote-pt prefers Chlorpromazine at HS-50 mg as he reports it is more helpful with sleep quality assistance. 06/03/21: Education, support. Vibra application. 06/04/21: Increase Chlorpromazine to 75 mg HS to assist with mgt of lability. 06/05/21: Continue current regime 06/06 continue current medications 06/09/21: Continue current plan of care Support, Educate, Inform, encourage pt's interests. 06/11/21: More engaged in milieu today. Attentive to ADL's with team encouragement. Continue plan of care. 06/12/21: Continue current regime. Sustenna due 06/21/21. 06/13/21 - 06/14/21 No changes Continue with current treatment plan 06/15/21 Continue current plan of care Invega Sustenna injection due 06/21/21. 06/16/21 Continue current plan of care. 06/17/21 Continue current plan of care Increase Chlorpromazine to 100 mg HS Discussed tapering PO Invega most likely between second and third injection of COKER. Discussed with pt treating his mood. At this time he would like more time to assess effects of therapy and COKER. 06/18/21 Continue current plan. Offer support and structure 06/19/10 Sustenna Injection 06/21. 06/20/21 No changes to the above 06/21/21 No change 06/23/21- pt without SI/HI/VH/AH, no overt delusional content reported. overly familiar with staff/asking multiple request but polite and able to be redirected. 06/26/21- Processing discussion of 06/25/21. Elopement risk Continue current plan of care. 06/29/21- Denies SE of COKER given 06/21. Continues to decline psychopharmacology intervention for mood symptoms-prefers to talk it out . Update diagnostics- EKG, CBC, CMP, TSH, Lipids, A1c, TSH, B12,Folate Pt has expressed interest in leaning to speak and write [place]-given resources so he may explore this interest. Support/Educate LT Plan: Vibra 06/30/21: continue current treatment plan. pt stable. 07/01/21: Continue current treatment plan. 07/02/21: Continue current treatment plan. Review of EKG changes, RBBB with [facility] Cardiology, Dr. Murillo-. They report this finding to be chronic, not in need of further eval or consult. 07/03- continue current treatment plan. 07/04- no medication changes 07/06/21- Continue current plan of care. LTP-Vibra transfer 07/07/21: Continue current plan of care. Assist pt at his request in addressing his financial concerns, need for PO Box assignment and issues with social security 07/08/21 Continue plan of care no change indicated at this time 07/09/21 Continue plan of care 07/10/21 Continue plan of care 07/11/21 Continue plan of care 07/11/21 Continue plan of care 07/12/21 Continue plan of care 07/14/21 Invega 6 mg po a.m. restart Thorazine IM back up if pt refuses. 07/15/21: Continue current plan. 07/16/21: Continue current plan. 07/19/21: No changes to medication plan 07/20/2021: Continue current regimen and plans 07/21/21: Invega Sustenna 234 mg IM to be given today or 07/22. Pt is aware. Continue current plan. I spent 25 minutes with the patient and/or on the patient floor today, greater than?50% of which was spent counseling/coordinating care. Patient educated on: diagnosis, medication risk/benefits and therapeutic strategies Informed Consent: further education needed Reason for contiued inpatient stay Substantial Risk for: harm to self, harm to others, inability to function and rapid decompensation
[2021-07-21] MEDS: Paliperidone Palmitate 234 MG/1.5 ML SYRINGE IM (14:15)
[2021-07-21 18:00] VITALS: BP 113/61; PULSE 85; TEMP 36.7; O2SAT 98
[2021-07-21] MEDS: chlorproMAZINE HCl 100 MG TABLET PO (20:34)
[2021-07-22] MEDS: Paliperidone ER 6 MG TAB.ER.24 PO (08:39)
[2021-07-22] MEDS: Multivitamin TABLET 1 TAB PO (08:39)
--- NOTE | 2021-07-22 14:04 | P.PNPSI_ITS ---
Subjective Subjective Date of Service: 07/22/21 Reason For Visit: Schizophrenia Subjective Notes: Section 8 Interim History: Received Invega Sustenna 07/21. Reports he has tolerated this without adverse effects. Discussed mother possibly visiting and asks about a family meeting which we have told him is his choice and is an option at any time. States he is preparing to transfer to [facility]- I understand, I need further care. Medication Compliance: Yes Side effects from medications: No Attending Groups: Yes Review of Systems Acute medical concerns: No Medical Review of Systems: unchanged Review of Systems Reports behavioral changes Psychiatric: Reports abnormal sleep pattern (DIANNE), Reports anxiety, Reports behavioral changes, Reports depression, Reports difficulty concentrating, Reports auditory hallucinations, Reports irritability, Reports anhedonia, Reports mood swings and Reports visual hallucinations Mental Status Exam Mental Status Exam Patient Appearance: Appropriate Patient Orientation: Person, Place, Time and Situation Level of Consciousness: Awake and Alert Patient Behavior: Talkative, Cooperative and Good Eye Contact Mood Description: Constricted Affect Description: Constricted Patient Cognition Impaired: Yes Ability to Follow Directions: Good Speech Pattern: Spontaneous Speech and Soft-Spoken Memory Description: Remote Impaired and Episodic Impaired Hallucinations: Auditory Delusions: Present Perceptual Disturbances: Depersonalization and Derealization Thought Process: Goal Oriented Thought Content: positive for Goal Oriented and positive for Perseveration Depressive Symptoms: Difficulty Sleeping Abnormal Motor Activity Signs and Symptoms: Restlessness Judgement: Poor Diagnostics Vital Signs (24Hr): Vital Signs - 24 hr 07/21/21 18:00 Temperature 98.0 F Pulse Rate 85 Blood Pressure 113/61 Pulse Oximetry 98 BMI result Body Mass Index 26.6 Labs Results: 07/01/21 08:13 07/01/21 08:13 Imaging Radiology Impressions: ITS Impressions Face X-Ray 04/21/21 15:29 IMPRESSION: No fracture seen. Orbit X-Ray 04/21/21 15:29 IMPRESSION: No fracture seen. Cervical Spine CT 04/24/21 22:24 IMPRESSION: No evidence of acute intracranial abnormalities. No evidence of acute maxillofacial fractures. However, evaluation of the inferior mandibular body is limited due to motion and although no definite fractures or surrounding soft tissue thickening/hematoma are identified, clinical correlation for pain/tenderness in the inferior mandible should be obtained as this is suboptimally assessed in this study. No acute cervical fractures or malalignment. Face CT 04/24/21 22:24 IMPRESSION: No evidence of acute intracranial abnormalities. No evidence of acute maxillofacial fractures. However, evaluation of the inferior mandibular body is limited due to motion and although no definite fractures or surrounding soft tissue thickening/hematoma are identified, clinical correlation for pain/tenderness in the inferior mandible should be obtained as this is suboptimally assessed in this study. No acute cervical fractures or malalignment. Head CT 04/24/21 22:24 IMPRESSION: No evidence of acute intracranial abnormalities. No evidence of acute maxillofacial fractures. However, evaluation of the inferior mandibular body is limited due to motion and although no definite fractures or surrounding soft tissue thickening/hematoma are identified, clinical correlation for pain/tenderness in the inferior mandible should be obtained as this is suboptimally assessed in this study. No acute cervical fractures or malalignment. Toe X-Ray 06/22/21 19:00 IMPRESSION: No appreciable phalangeal fractures of the right toes. Medications Medications Current Medications Benztropine Mesylate (Benztropine Mesylate 1 Mg Tablet) 1 mg PO TID PRN PRN Reason: Extrapyramidal Effects Chlorpromazine HCl (Chlorpromazine Hcl 100 Mg Tablet) 100 mg PO BID PRN PRN Reason: psychotic agitation Last Admin: 06/29/21 21:04 Dose: 100 mg Documented by: Chlorpromazine HCl (Chlorpromazine Hcl 100 Mg Tablet) 100 mg PO BEDTIME MARGAUX Last Admin: 07/21/21 20:34 Dose: 100 mg Documented by: Chlorpromazine HCl (Chlorpromazine Hcl 50 Mg/2 Ml Ampul) 100 mg IM BEDTIME PRN PRN Reason: if pt refuses PO per court order Chlorpromazine HCl (Chlorpromazine Hcl 50 Mg/2 Ml Ampul) 50 mg IM DAILY PRN PRN Reason: If pt refuses po Invega/court Ibuprofen (Ibuprofen 600 Mg Tablet) 600 mg PO Q4H PRN PRN Reason: Pain, Moderate (Pain Scale 4-6 Last Admin: 05/22/21 07:13 Dose: 600 mg Documented by: Lidocaine (Lidocaine 4 % Patch Adh..Patch) 1 patch TRANSDERMA DAILY PRN; Protocol PRN Reason: cervical pain Last Admin: 06/20/21 07:24 Dose: 1 patch Documented by: Melatonin (Melatonin 3 Mg Tablet) 3 mg PO BEDTIME PRN PRN Reason: Insomnia Multivitamins/Vitamin C (Multivitamin Tablet) 1 tab PO DAILY [facility] Last Admin: 07/22/21 08:39 Dose: 1 tab Documented by: Paliperidone (Paliperidone Er 6 Mg Tab.Er.24) 6 mg PO DAILY [facility] Last Admin: 07/22/21 08:39 Dose: 6 mg Documented by: Paliperidone Palmitate (Paliperidone Palmitate 234 Mg/1.5 Ml Syringe) 234 mg IM Q30D [facility] Last Admin: 07/21/21 14:15 Dose: 234 mg Documented by: Allergies Allergies Allergy/AdvReac Type Severity Reaction Status Date / Time haloperidol [From HALDOL] Allergy Severe DYSTONIA Verified 04/19/21 06:28 ziprasidone [From GEODON] Allergy Severe DYSTONIA Verified 04/19/21 06:28 Assessment & Plan Assessment & Plan (1) Schizoaffective disorder, bipolar type: Status: Acute Code(s): F25.0 - Schizoaffective disorder, bipolar type Plan 05/07/21 Invega 6 mg 05/08. Continue Thorazine prn. (pt required IM back up on 05/07/21) 05/08/21 Continue current plan of care. 05/09/21: Ct w plan per [facility] order 05/10/21: Ct Rx plan 05/11/21: Continue Invega titration. 05/12/21 Pt tolerating Invega. Will begin Sustenna on 05/13. 05/13/21 Sustanna given, tolerated. Support, educate, integrate into milieu for added support. 05/14/21 Tolerating Sustenna. Calmer, more focused today. Asking for help with legal issues, attempting to organize his responsibilities 05/15/21 Continue current plan. 05/16/21 Continue current plan 05/17/21 Continue current plan 05/18/21 Follow up with probation-pt agrees and signed JEANNETTE Second Sustenna injection 05/21. Tolerating with breakthrough sx with PO as well. 05/19/21 Team/Peers report evening/night agitation Depakote 500 mg ER HS 05/20/21 Continue current regime Scheduled Invega injection for 05/21 Continue to attempt alliance building, education, support 05/21/21 Continue current regimen, no changes to medication, will monitor for benefit on invega sustenna COKER. Still taking PO invega. Has not been taking PO depakote, so will not order a level. 05/22/21 Continue current regimen, pt is tolerating invega sustenna well. Not taking depakote. Appropriate on the unit. 05/23/21: No changes to above med plan. 05/24/21: No changes to above plan, continue PO invega until invega sustenna reaches steady state. Pt somewhat intrusive with high fiving staff but redirectable. 05/26/21: Continue current plan. Vibra application 05/27/21 Pt has been refusing Depakote at hs with resulting poor sleep. Will give Chlorpromazine IM if Depakote is refused. 05/28/21 Continue current plan Labs 06/01/20. 05/29/21 Continue with current plan 05/30/21 continue with current treatment plan 05/31/21 continue with current treatment plan 06/01/21 Discontinue Depakote-pt prefers Chlorpromazine at HS-50 mg as he reports it is more helpful with sleep quality assistance. 06/03/21: Education, support. Vibra application. 06/04/21: Increase Chlorpromazine to 75 mg HS to assist with mgt of lability. 06/05/21: Continue current regime 06/06 continue current medications 06/09/21: Continue current plan of care Support, Educate, Inform, encourage pt's interests. 06/11/21: More engaged in milieu today. Attentive to ADL's with team encouragement. Continue plan of care. 06/12/21: Continue current regime. Sustenna due 06/21/21. 06/13/21 - 06/14/21 No changes Continue with current treatment plan 06/15/21 Continue current plan of care Invega Sustenna injection due 06/21/21. 06/16/21 Continue current plan of care. 06/17/21 Continue current plan of care Increase Chlorpromazine to 100 mg HS Discussed tapering PO Invega most likely between second and third injection of COKER. Discussed with pt treating his mood. At this time he would like more time to a ssess effects of therapy and COKER. 06/18/21 Continue current plan. Offer support and structure 06/19/10 Sustenna Injection 06/21. 06/20/21 No changes to the above 06/21/21 No change 06/23/21- pt without SI/HI/VH/AH, no overt delusional content reported. overly familiar with staff/asking multiple request but polite and able to be redirected. 06/26/21- Processing discussion of 06/25/21. Elopement risk Continue current plan of care. 06/29/21- Denies SE of COKER given 06/21. Continues to decline psychopharmacology intervention for mood symptoms-prefers to talk it out . Update diagnostics- EKG, CBC, CMP, TSH, Lipids, A1c, TSH, B12,Folate Pt has expressed interest in leaning to speak and write Khmer-given resources so he may explore this interest. Support/Educate LT Plan: Vibra 06/30/21: continue current treatment plan. pt stable. 07/01/21: Continue current treatment plan. 07/02/21: Continue current treatment plan. Review of EKG changes, RBBB with [facility] Cardiology, Dr. Murillo-. They report this finding to be chronic, not in need of further eval or consult. 07/03- continue current treatment plan. 07/04- no medication changes 07/06/21- Continue current plan of care. LTP-Vibra transfer 07/07/21: Continue current plan of care. Assist pt at his request in addressing his financial concerns, need for PO Box assignment and issues with social security 07/08/21 Continue plan of care no change indicated at this time 07/09/21 Continue plan of care 07/10/21 Continue plan of care 07/11/21 Continue plan of care 07/11/21 Continue plan of care 07/12/21 Continue plan of care 07/14/21 Invega 6 mg po a.m. restart Thorazine IM back up if pt refuses. 07/15/21: Continue current plan. 07/16/21: Continue current plan. 07/19/21: No changes to medication plan 07/21/2021: Continue current regimen and plans 07/22/2021: Continue current plan of care. I spent minutes with the patient and/or on the patient floor today, greater than?50% of which was spent counseling/coordinating care. Patient educated on: medication risk/benefits and therapeutic strategies Informed Consent: does not understand and further education needed Reason for contiued inpatient stay Substantial Risk for: harm to self, harm to others, inability to function and rapid decompensation
[2021-07-22 19:12] VITALS: BP 115/81; PULSE 88; RESP 18; TEMP 37.1; O2SAT 100
[2021-07-22] MEDS: chlorproMAZINE HCl 100 MG TABLET PO (21:26)
[2021-07-23] MEDS: Paliperidone ER 6 MG TAB.ER.24 PO (08:42)
[2021-07-23] MEDS: Multivitamin TABLET 1 TAB PO (08:42)
--- NOTE | 2021-07-23 17:58 | HO.PSYCHPN ---
Subjective Subjective Date of Service: 07/23/21 Reason For Visit: Schizophrenia Subjective Notes: Section 8 Healthcare Proxy: No Guardianship: No Medical Problems Affecting Mental Status: No Interim History: Pt discussed a potential visit with his mother and wanting to set up a team meeting with both. Reports no adverse SE from Invega Sustenna. Continues to decline trial of a mood stabilizer to assist in sx mgt. Believes addition of PO Invega recently continues to be helpful. Team is working actively on transition to [facility] and they may have availability soon. Pt is reported to continue to self-dialogue in different voices. He is calmer, quieter in the milieu and less agitated. He is working with the team on ordering a new switch as his interest is renewed in [facility]. He denies medical symptoms and has stated for the past two days he is accepting of [facility]. He also discussed court charges and the review of the charges he had with his assistant prosecuting attorney. Medication Compliance: Yes Side effects from medications: No Attending Groups: Intermittent Review of Systems Acute medical concerns: No Medical Review of Systems: unchanged Review of Systems Psychiatric: Reports depression, Reports auditory hallucinations, Reports anhedonia, Reports mood swings, Reports paranoia, Reports visual hallucinations, Reports homicidal ideation (denies) and Reports suicidal ideation (denies) Mental Status Exam Mental Status Exam Patient Appearance: Well Grooomed Patient Orientation: Person, Place, Time and Situation Level of Consciousness: Alert Patient Behavior: Talkative and Good Eye Contact Mood Description: Constricted Affect Description: Constricted Patient Cognition Impaired: Yes Ability to Follow Directions: Good Speech Pattern: Spontaneous Speech Memory Description: Remote Impaired Hallucinations: Auditory and Visual Delusions: Paranoid Ideation and Present Perceptual Disturbances: Depersonalization and Derealization Thought Process: Distracted Thought Content: positive for [place], positive for Circumstantial, positive for Preoccupation, positive for Tangential, positive for Suicidal Ideation (denies) and positive for Homicidal Ideation (denies) Depressive Symptoms: Difficulty Sleeping (DIANNE 4am-he reports this is a usual pattern around change of time to daylight saving), Feelings of Guilt and Low Self Esteem Judgement: Fair Diagnostics Vital Signs (24Hr): Vital Signs - 24 hr 07/22/21 19:12 Temperature 98.8 F Pulse Rate 88 Respiratory Rate 18 Blood Pressure 115/81 Pulse Oximetry 100 BMI result Body Mass Index 26.6 Labs Results: 07/01/21 08:13 07/01/21 08:13 Imaging Radiology Impressions: ITS Impressions Face X-Ray 04/21/21 15:29 IMPRESSION: No fracture seen. Orbit X-Ray 04/21/21 15:29 IMPRESSION: No fracture seen. Cervical Spine CT 04/24/21 22:24 IMPRESSION: No evidence of acute intracranial abnormalities. No evidence of acute maxillofacial fractures. However, evaluation of the inferior mandibular body is limited due to motion and although no definite fractures or surrounding soft tissue thickening/hematoma are identified, clinical correlation for pain/tenderness in the inferior mandible should be obtained as this is suboptimally assessed in this study. No acute cervical fractures or malalignment. Face CT 04/24/21 22:24 IMPRESSION: No evidence of acute intracranial abnormalities. No evidence of acute maxillofacial fractures. However, evaluation of the inferior mandibular body is limited due to motion and although no definite fractures or surrounding soft tissue thickening/hematoma are identified, clinical correlation for pain/tenderness in the inferior mandible should be obtained as this is suboptimally assessed in this study. No acute cervical fractures or malalignment. Head CT 04/24/21 22:24 IMPRESSION: No evidence of acute intracranial abnormalities. No evidence of acute maxillofacial fractures. However, evaluation of the inferior mandibular body is limited due to motion and although no definite fractures or surrounding soft tissue thickening/hematoma are identified, clinical correlation for pain/tenderness in the inferior mandible should be obtained as this is suboptimally assessed in this study. No acute cervical fractures or malalignment. Toe X-Ray 06/22/21 19:00 IMPRESSION: No appreciable phalangeal fractures of the right toes. Medications Medications Current Medications Benztropine Mesylate (Benztropine Mesylate 1 Mg Tablet) 1 mg PO TID PRN PRN Reason: Extrapyramidal Effects Chlorpromazine HCl (Chlorpromazine Hcl 100 Mg Tablet) 100 mg PO BID PRN PRN Reason: psychotic agitation Last Admin: 06/29/21 21:04 Dose: 100 mg Documented by: Chlorpromazine HCl (Chlorpromazine Hcl 100 Mg Tablet) 100 mg PO BEDTIME MARGAUX Last Admin: 07/22/21 21:26 Dose: 100 mg Documented by: Chlorpromazine HCl (Chlorpromazine Hcl 50 Mg/2 Ml Ampul) 100 mg IM BEDTIME PRN PRN Reason: if pt refuses PO per court order Chlorpromazine HCl (Chlorpromazine Hcl 50 Mg/2 Ml Ampul) 50 mg IM DAILY PRN PRN Reason: If pt refuses po Invega/court Ibuprofen (Ibuprofen 600 Mg Tablet) 600 mg PO Q4H PRN PRN Reason: Pain, Moderate (Pain Scale 4-6 Last Admin: 05/22/21 07:13 Dose: 600 mg Documented by: Lidocaine (Lidocaine 4 % Patch Adh..Patch) 1 patch TRANSDERMA DAILY PRN; Protocol PRN Reason: cervical pain Last Admin: 06/20/21 07:24 Dose: 1 patch Documented by: Melatonin (Melatonin 3 Mg Tablet) 3 mg PO BEDTIME PRN PRN Reason: Insomnia Multivitamins/Vitamin C (Multivitamin Tablet) 1 tab PO DAILY [facility] Last Admin: 07/23/21 08:42 Dose: 1 tab Documented by: Paliperidone (Paliperidone Er 6 Mg Tab.Er.24) 6 mg PO DAILY [facility] Last Admin: 07/23/21 08:42 Dose: 6 mg Documented by: Paliperidone Palmitate (Paliperidone Palmitate 234 Mg/1.5 Ml Syringe) 234 mg IM Q30D [facility] Last Admin: 07/21/21 14:15 Dose: 234 mg Documented by: Allergies Allergies Allergy/AdvReac Type Severity Reaction Status Date / Time haloperidol [From HALDOL] Allergy Severe DYSTONIA Verified 04/19/21 06:28 ziprasidone [From GEODON] Allergy Severe DYSTONIA Verified 04/19/21 06:28 Assessment & Plan Assessment & Plan (1) Schizoaffective disorder, bipolar type: Status: Acute Code(s): F25.0 - Schizoaffective disorder, bipolar type Plan 05/07/21 Invega 6 mg 05/08. Continue Thorazine prn. (pt required IM back up on 05/07/21) 05/08/21 Continue current plan of care. 05/09/21: Ct w plan per [facility] order 05/10/21: Ct Rx plan 05/11/21: Continue Invega titration. 05/12/21 Pt tolerating Invega. Will begin Sustenna on 05/13. 05/13/21 Sustanna given, tolerated. Support, educate, integrate into milieu for added support. 05/14/21 Tolerating Sustenna. Calmer, more focused today. Asking for help with legal issues, attempting to organize his responsibilities 05/15/21 Continue current plan. 05/16/21 Continue current plan 05/17/21 Continue current plan 05/18/21 Follow up with probation-pt agrees and signed JEANNETTE Second Sustenna injection 05/21. Tolerating with breakthrough sx with PO as well. 05/19/21 Team/Peers report evening/night agitation Depakote 500 mg ER HS 05/20/21 Continue current regime Scheduled Invega injection for 05/21 Continue to attempt alliance building, education, support 05/21/21 Continue current regimen, no changes to medication, will monitor for benefit on invega sustenna COKER. Still taking PO invega. Has not been taking PO depakote, so will not order a level. 05/22/21 Continue current regimen, pt is tolerating invega sustenna well. Not taking depakote. Appropriate on the unit. 05/23/21: No changes to above med plan. 05/24/21: No changes to above plan, continue PO invega until invega sustenna reaches steady state. Pt somewhat intrusive with high fiving staff but redirectable. 05/26/21: Continue current plan. [facility] application 05/27/21 Pt has been refusing Depakote at hs with resulting poor sleep. Will give Chlorpromazine IM if Depakote is refused. 05/28/21 Continue current plan Labs 06/01/20. 05/29/21 Continue with current plan 05/30/21 continue with current treatment plan 05/31/21 continue with current treatment plan 06/01/21 Discontinue Depakote-pt prefers Chlorpromazine at HS-50 mg as he reports it is more helpful with sleep quality assistance. 06/03/21: Education, support. [facility] application. 06/04/21: Increase Chlorpromazine to 75 mg HS to assist with mgt of lability. 06/05/21: Continue current regime 06/06 continue current medications 06/09/21: Continue current plan of care Support, Educate, Inform, encourage pt's interests. 06/11/21: More engaged in milieu today. Attentive to ADL's with team encouragement. Continue plan of care. 06/12/21: Continue current regime. Sustenna due 06/21/21. 06/13/21 - 06/14/21 No changes Continue with current treatment plan 06/15/21 Continue current plan of care Invega Sustenna injection due 06/21/21. 06/16/21 Continue current plan of care. 06/17/21 Continue current plan of care Increase Chlorpromazine to 100 mg HS Discussed tapering PO Invega most likely between second and third injection of COKER. Discussed with pt treating his mood. At this time he would like more time to assess effects of therapy and COKER. 06/18/21 Continue current plan. Offer support and structure 06/19/10 Sustenna Injection 06/21. 06/20/21 No changes to the above 06/21/21 No change 06/23/21- pt without SI/HI/VH/AH, no overt delusional content reported. overly familiar with staff/asking multiple request but polite and able to be redirected. 06/26/21- Processing discussion of 06/25/21. Elopement risk Continue current plan of care. 06/29/21- Denies SE of COKER given 06/21. Continues to decline psychopharmacology intervention for mood symptoms-prefers to talk it out . Update diagnostics- EKG, CBC, CMP, TSH, Lipids, A1c, TSH, B12,Folate Pt has expressed interest in leaning to speak and write [place]-given resources so he may explore this interest. Support/Educate LT Plan: [facility] 06/30/21: continue current treatment plan. pt stable. 07/01/21: Continue current treatment plan. 07/02/21: Continue current treatment plan. Review of EKG changes, RBBB with [facility] Cardiology, Dr. Murillo-. They report this finding to be chronic, not in need of further eval or consult. 07/03- continue current treatment plan. 07/04- no medication changes 07/06/21- Continue current plan of care. LTP-[facility] transfer 07/07/21: Continue current plan of care. Assist pt at his request in addressing his financial concerns, need for PO Box assignment and issues with social security 07/08/21 Continue plan of care no change indicated at this time 07/09/21 Continue plan of care 07/10/21 Continue plan of care 07/11/21 Continue plan of care 07/11/21 Continue plan of care 07/12/21 Continue plan of care 07/14/21 Invega 6 mg po a.m. restart Thorazine IM back up if pt refuses. 07/15/21: Continue current plan. 07/16/21: Continue current plan. 07/19/21: No changes to medication plan 07/20/2021: Continue current regimen and plans 07/21/21: Invega Sustenna 234 mg IM to be given today or 07/22. Pt is aware. Continue current plan. I spent minutes with the patient and/or on the patient floor today, greater than?50% of which was spent counseling/coordinating care. Reason for contiued inpatient stay Substantial Risk for: harm to self, harm to others, inability to function and rapid decompensation
[2021-07-23 19:10] VITALS: BP 119/75; PULSE 90; RESP 17; TEMP 37.3; O2SAT 100
[2021-07-23] MEDS: chlorproMAZINE HCl 100 MG TABLET PO (20:56)
[2021-07-24 06:00] VITALS: BP 112/74; PULSE 97; RESP 18; TEMP 36.8; O2SAT 99
[2021-07-24] MEDS: Multivitamin TABLET 1 TAB PO (08:07)
[2021-07-24] MEDS: Paliperidone ER 6 MG TAB.ER.24 PO (08:07)
[2021-07-24] MEDS: Ibuprofen 600 MG TABLET PO (15:38)
[2021-07-24] MEDS: Lidocaine 4 % Patch ADH..PATCH 1 PATCH TRANSDERMA (15:38)
[2021-07-24 17:20] VITALS: BP 127/58; PULSE 89; RESP 17; TEMP 37.2; O2SAT 97
--- NOTE | 2021-07-24 18:55 | HO.PSYCHPN ---
Subjective Subjective Date of Service: 07/24/21 Reason For Visit: Schizophrenia Subjective Notes: Section 8 Healthcare Proxy: No Guardianship: No Medical Problems Affecting Mental Status: No Interim History: I think I will be going to [employer] next week and I am excited about it. Discussed looking forward to transition to [facility]. Team reports pt continues to respond to internal stimuli and self-dialogue. Pt reports he believes med regime to be effective, helpful and on track for his needs. Today he spent some time tearfully grieving loss of his girlfriend-discussed how he misses her and hopes he can move on in life without her. Medication Compliance: Yes Side effects from medications: No Attending Groups: Yes Review of Systems Acute medical concerns: No Medical Review of Systems: unchanged Review of Systems Psychiatric: Reports no additional psychiatric complaints Mental Status Exam Mental Status Exam Patient Appearance: Well Grooomed Patient Orientation: Person, Place, Time and Situation Level of Consciousness: Alert Patient Behavior: Talkative and Good Eye Contact Mood Description: Constricted Affect Description: Constricted Patient Cognition Impaired: Yes Ability to Follow Directions: Good Speech Pattern: Spontaneous Speech Memory Description: Remote Impaired Hallucinations: Auditory and Visual Delusions: Paranoid Ideation and Present Perceptual Disturbances: Depersonalization and Derealization Thought Process: Distracted Thought Content: positive for [place], positive for Circumstantial, positive for Preoccupation, positive for Tangential, positive for Suicidal Ideation (denies) and positive for Homicidal Ideation (denies) Depressive Symptoms: Difficulty Sleeping (DIANNE 4am-he reports this is a usual pattern around change of time to daylight saving), Feelings of Guilt and Low Self Esteem Judgement: Fair Diagnostics Vital Signs (24Hr): Vital Signs - 24 hr 07/23/21 19:10 07/24/21 06:00 07/24/21 17:20 Temperature 99.1 F 98.3 F 98.9 F Pulse Rate 90 97 89 Respiratory Rate 17 18 17 Blood Pressure 119/75 112/74 127/58 L Pulse Oximetry 100 99 97 BMI result Body Mass Index 26.6 Labs Results: 07/01/21 08:13 07/01/21 08:13 Imaging Radiology Impressions: ITS Impressions Face X-Ray 04/21/21 15:29 IMPRESSION: No fracture seen. Orbit X-Ray 04/21/21 15:29 IMPRESSION: No fracture seen. Cervical Spine CT 04/24/21 22:24 IMPRESSION: No evidence of acute intracranial abnormalities. No evidence of acute maxillofacial fractures. However, evaluation of the inferior mandibular body is limited due to motion and although no definite fractures or surrounding soft tissue thickening/hematoma are identified, clinical correlation for pain/tenderness in the inferior mandible should be obtained as this is suboptimally assessed in this study. No acute cervical fractures or malalignment. Face CT 04/24/21 22:24 IMPRESSION: No evidence of acute intracranial abnormalities. No evidence of acute maxillofacial fractures. However, evaluation of the inferior mandibular body is limited due to motion and although no definite fractures or surrounding soft tissue thickening/hematoma are identified, clinical correlation for pain/tenderness in the inferior mandible should be obtained as this is suboptimally assessed in this study. No acute cervical fractures or malalignment. Head CT 04/24/21 22:24 IMPRESSION: No evidence of acute intracranial abnormalities. No evidence of acute maxillofacial fractures. However, evaluation of the inferior mandibular body is limited due to motion and although no definite fractures or surrounding soft tissue thickening/hematoma are identified, clinical correlation for pain/tenderness in the inferior mandible should be obtained as this is suboptimally assessed in this study. No acute cervical fractures or malalignment. Toe X-Ray 06/22/21 19:00 IMPRESSION: No appreciable phalangeal fractures of the right toes. Medications Medications Current Medications Benztropine Mesylate (Benztropine Mesylate 1 Mg Tablet) 1 mg PO TID PRN PRN Reason: Extrapyramidal Effects Chlorpromazine HCl (Chlorpromazine Hcl 100 Mg Tablet) 100 mg PO BID PRN PRN Reason: psychotic agitation Last Admin: 06/29/21 21:04 Dose: 100 mg Documented by: Chlorpromazine HCl (Chlorpromazine Hcl 100 Mg Tablet) 100 mg PO BEDTIME MARGAUX Last Admin: 07/23/21 20:56 Dose: 100 mg Documented by: Chlorpromazine HCl (Chlorpromazine Hcl 50 Mg/2 Ml Ampul) 100 mg IM BEDTIME PRN PRN Reason: if pt refuses PO per court order Chlorpromazine HCl (Chlorpromazine Hcl 50 Mg/2 Ml Ampul) 50 mg IM DAILY PRN PRN Reason: If pt refuses po Invega/court Ibuprofen (Ibuprofen 600 Mg Tablet) 600 mg PO Q4H PRN PRN Reason: Pain, Moderate (Pain Scale 4-6 Last Admin: 07/24/21 15:38 Dose: 600 mg Documented by: Lidocaine (Lidocaine 4 % Patch Adh..Patch) 1 patch TRANSDERMA DAILY PRN; Protocol PRN Reason: cervical pain Last Admin: 07/24/21 15:38 Dose: 1 patch Documented by: Melatonin (Melatonin 3 Mg Tablet) 3 mg PO BEDTIME PRN PRN Reason: Insomnia Multivitamins/Vitamin C (Multivitamin Tablet) 1 tab PO DAILY [facility] Last Admin: 07/24/21 08:07 Dose: 1 tab Documented by: Paliperidone (Paliperidone Er 6 Mg Tab.Er.24) 6 mg PO DAILY [facility] Last Admin: 07/24/21 08:07 Dose: 6 mg Documented by: Paliperidone Palmitate (Paliperidone Palmitate 234 Mg/1.5 Ml Syringe) 234 mg IM Q30D [facility] Last Admin: 07/21/21 14:15 Dose: 234 mg Documented by: Allergies Allergies Allergy/AdvReac Type Severity Reaction Status Date / Time haloperidol [From HALDOL] Allergy Severe DYSTONIA Verified 04/19/21 06:28 ziprasidone [From GEODON] Allergy Severe DYSTONIA Verified 04/19/21 06:28 Assessment & Plan Assessment & Plan (1) Schizoaffective disorder, bipolar type: Status: Acute Code(s): F25.0 - Schizoaffective disorder, bipolar type Plan 05/07/21 Invega 6 mg 05/08. Continue Thorazine prn. (pt required IM back up on 05/07/21) 05/08/21 Continue current plan of care. 05/09/21: Ct w plan per [facility] order 05/10/21: Ct Rx plan 05/11/21: Continue Invega titration. 05/12/21 Pt tolerating Invega. Will begin Sustenna on 05/13. 05/13/21 Sustanna given, tolerated. Support, educate, integrate into milieu for added support. 05/14/21 Tolerating Sustenna. Calmer, more focused today. Asking for help with legal issues, attempting to organize his responsibilities 05/15/21 Continue current plan. 05/16/21 Continue current plan 05/17/21 Continue current plan 05/18/21 Follow up with probation-pt agrees and signed JEANNETTE Second Sustenna injection 05/21. Tolerating with breakthrough sx with PO as well. 05/19/21 Team/Peers report evening/night agitation Depakote 500 mg ER HS 05/20/21 Continue current regime Scheduled Invega injection for 05/21 Continue to attempt alliance building, education, support 05/21/21 Continue current regimen, no changes to medication, will monitor for benefit on invega sustenna COKER. Still taking PO invega. Has not been taking PO depakote, so will not order a level. 05/22/21 Continue current regimen, pt is tolerating invega sustenna well. Not taking depakote. Appropriate on the unit. 05/23/21: No changes to above med plan. 05/24/21: No changes to above plan, continue PO invega until invega sustenna reaches steady state. Pt somewhat intrusive with high fiving staff but redirectable. 05/26/21: Continue current plan. [facility] application 05/27/21 Pt has been refusing Depakote at hs with resulting poor sleep. Will give Chlorpromazine IM if Depakote is refused. 05/28/21 Continue current plan Labs 06/01/20. 05/29/21 Continue with current plan 05/30/21 continue with current treatment plan 05/31/21 continue with current treatment plan 06/01/21 Discontinue Depakote-pt prefers Chlorpromazine at HS-50 mg as he reports it is more helpful with sleep quality assistance. 06/03/21: Education, support. [facility]ra application. 06/04/21: Increase Chlorpromazine to 75 mg HS to assist with mgt of lability. 06/05/21: Continue current regime 06/06 continue current medications 06/09/21: Continue current plan of care Support, Educate, Inform, encourage pt's interests. 06/11/21: More engaged in milieu today. Attentive to ADL's with team encouragement. Continue plan of care. 06/12/21: Continue current regime. Sustenna due 06/21/21. 06/13/21 - 06/14/21 No changes Continue with current treatment plan 06/15/21 Continue current plan of care Invega Sustenna injection due 06/21/21. 06/16/21 Continue current plan of care. 06/17/21 Continue current plan of care Increase Chlorpromazine to 100 mg HS Discussed tapering PO Invega most likely between second and third injection of COKER. Discussed with pt treating his mood. At this time he would like more time to assess effects of therapy and COKER. 06/18/21 Continue current plan. Offer support and structure 06/19/10 Sustenna Injection 06/21. 06/20/21 No changes to the above 06/21/21 No change 06/23/21- pt without SI/HI/VH/AH, no overt delusional content reported. overly familiar with staff/asking multiple request but polite and able to be redirected. 06/26/21- Processing discussion of 06/25/21. Elopement risk Continue current plan of care. 06/29/21- Denies SE of COKER given 06/21. Continues to decline psychopharmacology intervention for mood symptoms-prefers to talk it out . Update diagnostics- EKG, CBC, CMP, TSH, Lipids, A1c, TSH, B12,Folate Pt has expressed interest in leaning to speak and write [place]-given resources so he may explore this interest. Support/Educate LT Plan: [facility] 06/30/21: continue current treatment plan. pt stable. 07/01/21: Continue current treatment plan. 07/02/21: Continue current treatment plan. Review of EKG changes, RBBB with [facility], Dr. Murillo-. They report this finding to be chronic, not in need of further eval or consult. 07/03- continue current treatment plan. 07/04- no medication changes 07/06/21- Continue current plan of care. LTP-[facility] transfer 07/07/21: Continue current plan of care. Assist pt at his request in addressing his financial concerns, need for PO Box assignment and issues with social security 07/08/21 Continue plan of care no change indicated at this time 07/09/21 Continue plan of care 07/10/21 Continue plan of care 07/11/21 Continue plan of care 07/11/21 Continue plan of care 07/12/21 Continue plan of care 07/14/21 Invega 6 mg po a.m. restart Thorazine IM back up if pt refuses. 07/15/21: Continue current plan. 07/16/21: Continue current plan. 07/19/21: No changes to medication plan 07/20/2021: Continue current regimen and plans 07/21/21: Invega Sustenna 234 mg IM to be given today or 07/22. Pt is aware. Continue current plan. 07/24/21: Support pt in transition to [facility] I spent minutes with the patient and/or on the patient floor today, greater than?50% of which was spent counseling/coordinating care. Patient educated on: medication risk/benefits and therapeutic strategies Informed Consent: understands Reason for contiued inpatient stay Substantial Risk for: harm to self, harm to others, inability to function and rapid decompensation
[2021-07-24] MEDS: chlorproMAZINE HCl 100 MG TABLET PO (21:35)
[2021-07-25 06:00] VITALS: BP 110/59; PULSE 93; TEMP 36.5
[2021-07-25] MEDS: Multivitamin TABLET 1 TAB PO (09:05)
[2021-07-25] MEDS: Paliperidone ER 6 MG TAB.ER.24 PO (09:05)
[2021-07-25] MEDS: Ibuprofen 600 MG TABLET PO (09:22)
--- NOTE | 2021-07-25 11:45 | HO.PSYCHPN ---
Subjective Subjective Date of Service: 07/25/21 Reason For Visit: Schizophrenia Subjective Notes: Conditional Voluntary Medical Problems Affecting Mental Status: No Interim History: Patient was seen and discussed in rounds today. He continues to be isolative with some self dialogue. When questioned he denies any symptoms of psychosis. Eating and sleeping adequately. Continues to be wandering about long-term placement. No other complaints. No changes were made today Medication Compliance: Yes Side effects from medications: No Mental Status Exam Mental Status Exam Patient Appearance: Well Grooomed Patient Orientation: Person, Place, Time and Situation Level of Consciousness: Alert Patient Behavior: Talkative and Good Eye Contact Mood Description: Constricted Affect Description: Constricted Patient Cognition Impaired: Yes Ability to Follow Directions: Good Speech Pattern: Spontaneous Speech Memory Description: Remote Impaired Hallucinations: Auditory and Visual Delusions: Paranoid Ideation and Present Perceptual Disturbances: Depersonalization and Derealization Thought Process: Distracted Thought Content: positive for Ryan, positive for Circumstantial, positive for Preoccupation, positive for Tangential, positive for Suicidal Ideation (denies) and positive for Homicidal Ideation (denies) Depressive Symptoms: Difficulty Sleeping (DIANNE 4am-he reports this is a usual pattern around change of time to daylight saving), Feelings of Guilt and Low Self Esteem Judgement: Fair Diagnostics Vital Signs (24Hr): Vital Signs - 24 hr 07/24/21 17:20 07/25/21 06:00 Temperature 98.9 F 97.7 F Pulse Rate 89 93 Respiratory Rate 17 Blood Pressure 127/58 L 110/59 L Pulse Oximetry 97 BMI result Body Mass Index 26.6 Labs Results: 07/01/21 08:13 07/01/21 08:13 Imaging Radiology Impressions: ITS Impressions Face X-Ray 04/21/21 15:29 IMPRESSION: No fracture seen. Orbit X-Ray 04/21/21 15:29 IMPRESSION: No fracture seen. Cervical Spine CT 04/24/21 22:24 IMPRESSION: No evidence of acute intracranial abnormalities. No evidence of acute maxillofacial fractures. However, evaluation of the inferior mandibular body is limited due to motion and although no definite fractures or surrounding soft tissue thickening/hematoma are identified, clinical correlation for pain/tenderness in the inferior mandible should be obtained as this is suboptimally assessed in this study. No acute cervical fractures or malalignment. Face CT 04/24/21 22:24 IMPRESSION: No evidence of acute intracranial abnormalities. No evidence of acute maxillofacial fractures. However, evaluation of the inferior mandibular body is limited due to motion and although no definite fractures or surrounding soft tissue thickening/hematoma are identified, clinical correlation for pain/tenderness in the inferior mandible should be obtained as this is suboptimally assessed in this study. No acute cervical fractures or malalignment. Head CT 04/24/21 22:24 IMPRESSION: No evidence of acute intracranial abnormalities. No evidence of acute maxillofacial fractures. However, evaluation of the inferior mandibular body is limited due to motion and although no definite fractures or surrounding soft tissue thickening/hematoma are identified, clinical correlation for pain/tenderness in the inferior mandible should be obtained as this is suboptimally assessed in this study. No acute cervical fractures or malalignment. Toe X-Ray 06/22/21 19:00 IMPRESSION: No appreciable phalangeal fractures of the right toes. Medications Medications Current Medications Benztropine Mesylate (Benztropine Mesylate 1 Mg Tablet) 1 mg PO TID PRN PRN Reason: Extrapyramidal Effects Chlorpromazine HCl (Chlorpromazine Hcl 100 Mg Tablet) 100 mg PO BID PRN PRN Reason: psychotic agitation Last Admin: 06/29/21 21:04 Dose: 100 mg Documented by: Chlorpromazine HCl (Chlorpromazine Hcl 100 Mg Tablet) 100 mg PO BEDTIME [facility] Last Admin: 07/24/21 21:35 Dose: 100 mg Documented by: Chlorpromazine HCl (Chlorpromazine Hcl 50 Mg/2 Ml Ampul) 100 mg IM BEDTIME PRN PRN Reason: if pt refuses PO per court order Chlorpromazine HCl (Chlorpromazine Hcl 50 Mg/2 Ml Ampul) 50 mg IM DAILY PRN PRN Reason: If pt refuses po Invega/court Ibuprofen (Ibuprofen 600 Mg Tablet) 600 mg PO Q4H PRN PRN Reason: Pain, Moderate (Pain Scale 4-6 Last Admin: 07/25/21 09:22 Dose: 600 mg Documented by: Lidocaine (Lidocaine 4 % Patch Adh..Patch) 1 patch TRANSDERMA DAILY PRN; Protocol PRN Reason: cervical pain Last Admin: 07/24/21 15:38 Dose: 1 patch Documented by: Melatonin (Melatonin 3 Mg Tablet) 3 mg PO BEDTIME PRN PRN Reason: Insomnia Multivitamins/Vitamin C (Multivitamin Tablet) 1 tab PO DAILY [facility] Last Admin: 07/25/21 09:05 Dose: 1 tab Documented by: Paliperidone (Paliperidone Er 6 Mg Tab.Er.24) 6 mg PO DAILY [facility] Last Admin: 07/25/21 09:05 Dose: 6 mg Documented by: Paliperidone Palmitate (Paliperidone Palmitate 234 Mg/1.5 Ml Syringe) 234 mg IM Q30D [facility] Last Admin: 07/21/21 14:15 Dose: 234 mg Documented by: Allergies Allergies Allergy/AdvReac Type Severity Reaction Status Date / Time haloperidol [From HALDOL] Allergy Severe DYSTONIA Verified 04/19/21 06:28 ziprasidone [From GEODON] Allergy Severe DYSTONIA Verified 04/19/21 06:28 Assessment & Plan Assessment & Plan (1) Schizoaffective disorder, bipolar type: Status: Acute Code(s): F25.0 - Schizoaffective disorder, bipolar type Plan 05/07/21 Invega 6 mg 05/08. Continue Thorazine prn. (pt required IM back up on 05/07/21) 05/08/21 Continue current plan of care. 05/09/21: Ct w plan per [facility] order 05/10/21: Ct Rx plan 05/11/21: Continue Invega titration. 05/12/21 Pt tolerating Invega. Will begin Sustenna on 05/13. 05/13/21 Sustanna given, tolerated. Support, educate, integrate into milieu for added support. 05/14/21 Tolerating Sustenna. Calmer, more focused today. Asking for help with legal issues, attempting to organize his responsibilities 05/15/21 Continue current plan. 05/16/21 Continue current plan 05/17/21 Continue current plan 05/18/21 Follow up with probation-pt agrees and signed JEANNETTE Second Sustenna injection 05/21. Tolerating with breakthrough sx with PO as well. 05/19/21 Team/Peers report evening/night agitation Depakote 500 mg ER HS 05/20/21 Continue current regime Scheduled Invega injection for 05/21 Continue to attempt alliance building, education, support 05/21/21 Continue current regimen, no changes to medication, will monitor for benefit on invega sustenna COKER. Still taking PO invega. Has not been taking PO depakote, so will not order a level. 05/22/21 Continue current regimen, pt is tolerating invega sustenna well. Not taking depakote. Appropriate on the unit. 05/23/21: No changes to above med plan. 05/24/21: No changes to above plan, continue PO invega until invega sustenna reaches steady state. Pt somewhat intrusive with high fiving staff but redirectable. 05/26/21: Continue current plan. [facility]ra application 05/27/21 Pt has been refusing Depakote at hs with resulting poor sleep. Will give Chlorpromazine IM if Depakote is refused. 05/28/21 Continue current plan Labs 06/01/20. 05/29/21 Continue with current plan 05/30/21 continue with current treatment plan 05/31/21 continue with current treatment plan 06/01/21 Discontinue Depakote-pt prefers Chlorpromazine at HS-50 mg as he reports it is more helpful with sleep quality assistance. 06/03/21: Education, support. Vibra application. 06/04/21: Increase Chlorpromazine to 75 mg HS to assist with mgt of lability. 06/05/21: Continue current regime 06/06 continue current medications 06/09/21: Continue current plan of care Support, Educate, Inform, encourage pt's interests. 06/11/21: More engaged in milieu today. Attentive to ADL's with team encouragement. Continue plan of care. 06/12/21: Continue current regime. Sustenna due 06/21/21. 06/13/21 - 06/14/21 No changes Continue with current treatment plan 06/15/21 Continue current plan of care Invega Sustenna injection due 06/21/21. 06/16/21 Continue current plan of care. 06/17/21 Continue current plan of care Increase Chlorpromazine to 100 mg HS Discussed tapering PO Invega most likely between second and third injection of COKER. Discussed with pt treating his mood. At this time he would like more time to assess effects of therapy and COKER. 06/18/21 Continue current plan. Offer support and structure 06/19/10 Sustenna Injection 06/21. 06/20/21 No changes to the above 06/21/21 No change 06/23/21- pt without SI/HI/VH/AH, no overt delusional content reported. overly familiar with staff/asking multiple request but polite and able to be redirected. 06/26/21- Processing discussion of 06/25/21. Elopement risk Continue current plan of care. 06/29/21- Denies SE of COKER given 06/21. Continues to decline psychopharmacology intervention for mood symptoms-prefers to talk it out . Update diagnostics- EKG, CBC, CMP, TSH, Lipids, A1c, TSH, B12,Folate Pt has expressed interest in leaning to speak and write Portuguese-given resources so he may explore this interest. Support/Educate LT Plan: Vibra 06/30/21: continue current treatment plan. pt stable. 07/01/21: Continue current treatment plan. 07/02/21: Continue current treatment plan. Review of EKG changes, RBBB with [facility] [place] Cardiology, Dr. Murillo-. They report this finding to be chronic, not in need of further eval or consult. 07/03- continue current treatment plan. 07/04- no medication changes 07/06/21- Continue current plan of care. LTP-Vibra transfer 07/07/21: Continue current plan of care. Assist pt at his request in addressing his financial concerns, need for PO Box assignment and issues with social security 07/08/21 Continue plan of care no change indicated at this time 07/09/21 Continue plan of care 07/10/21 Continue plan of care 07/11/21 Continue plan of care 07/11/21 Continue plan of care 07/12/21 Continue plan of care 07/14/21 Invega 6 mg po a.m. restart Thorazine IM back up if pt refuses. 07/15/21: Continue current plan. 07/16/21: Continue current plan. 07/19/21: No changes to medication plan 07/20/2021: Continue current regimen and plans 07/21/21: Invega Sustenna 234 mg IM to be given today or 07/22. Pt is aware. Continue current plan. 07/24/21: Support pt in transition to [facility] I spent minutes with the patient and/or on the patient floor today, greater than?50% of which was spent counseling/coordinating care. Reason for contiued inpatient stay Substantial Risk for: med/psych decompensation
[2021-07-25] MEDS: chlorproMAZINE HCl 100 MG TABLET PO (21:47)
[2021-07-26] MEDS: Paliperidone ER 6 MG TAB.ER.24 PO (08:50)
[2021-07-26] MEDS: Multivitamin TABLET 1 TAB PO (08:50)
[2021-07-26 09:06] VITALS: BP 102/59; PULSE 106; TEMP 37.2; O2SAT 98
--- NOTE | 2021-07-26 10:43 | HO.PSYCHPN ---
Subjective Subjective Date of Service: 07/26/21 Reason For Visit: Schizophrenia Subjective Notes: Conditional Voluntary Medical Problems Affecting Mental Status: No Interim History: Patient was seen in rounds today. He continues to be isolative with flat affect. He is still having self dialogue but denies any symptoms of psychosis. He has periods of pacing. No complaints or side effects. Eating and sleeping adequately. No changes were made today Medication Compliance: Yes Side effects from medications: No Review of Systems Review of Systems Yes all other systems are reviewed and are negative Psychiatric: Reports no additional psychiatric complaints Diagnostics Vital Signs (24Hr): Vital Signs - 24 hr 07/26/21 09:06 Temperature 99.0 F Pulse Rate 106 H Blood Pressure 102/59 L Pulse Oximetry 98 BMI result Body Mass Index 26.6 Labs Results: 07/01/21 08:13 07/01/21 08:13 Imaging Radiology Impressions: ITS Impressions Face X-Ray 04/21/21 15:29 IMPRESSION: No fracture seen. Orbit X-Ray 04/21/21 15:29 IMPRESSION: No fracture seen. Cervical Spine CT 04/24/21 22:24 IMPRESSION: No evidence of acute intracranial abnormalities. No evidence of acute maxillofacial fractures. However, evaluation of the inferior mandibular body is limited due to motion and although no definite fractures or surrounding soft tissue thickening/hematoma are identified, clinical correlation for pain/tenderness in the inferior mandible should be obtained as this is suboptimally assessed in this study. No acute cervical fractures or malalignment. Face CT 04/24/21 22:24 IMPRESSION: No evidence of acute intracranial abnormalities. No evidence of acute maxillofacial fractures. However, evaluation of the inferior mandibular body is limited due to motion and although no definite fractures or surrounding soft tissue thickening/hematoma are identified, clinical correlation for pain/tenderness in the inferior mandible should be obtained as this is suboptimally assessed in this study. No acute cervical fractures or malalignment. Head CT 04/24/21 22:24 IMPRESSION: No evidence of acute intracranial abnormalities. No evidence of acute maxillofacial fractures. However, evaluation of the inferior mandibular body is limited due to motion and although no definite fractures or surrounding soft tissue thickening/hematoma are identified, clinical correlation for pain/tenderness in the inferior mandible should be obtained as this is suboptimally assessed in this study. No acute cervical fractures or malalignment. Toe X-Ray 06/22/21 19:00 IMPRESSION: No appreciable phalangeal fractures of the right toes. Medications Medications Current Medications Benztropine Mesylate (Benztropine Mesylate 1 Mg Tablet) 1 mg PO TID PRN PRN Reason: Extrapyramidal Effects Chlorpromazine HCl (Chlorpromazine Hcl 100 Mg Tablet) 100 mg PO BID PRN PRN Reason: psychotic agitation Last Admin: 06/29/21 21:04 Dose: 100 mg Documented by: Chlorpromazine HCl (Chlorpromazine Hcl 100 Mg Tablet) 100 mg PO BEDTIME [facility] Last Admin: 07/25/21 21:47 Dose: 100 mg Documented by: Chlorpromazine HCl (Chlorpromazine Hcl 50 Mg/2 Ml Ampul) 100 mg IM BEDTIME PRN PRN Reason: if pt refuses PO per court order Chlorpromazine HCl (Chlorpromazine Hcl 50 Mg/2 Ml Ampul) 50 mg IM DAILY PRN PRN Reason: If pt refuses po Invega/court Ibuprofen (Ibuprofen 600 Mg Tablet) 600 mg PO Q4H PRN PRN Reason: Pain, Moderate (Pain Scale 4-6 Last Admin: 07/25/21 09:22 Dose: 600 mg Documented by: Lidocaine (Lidocaine 4 % Patch Adh..Patch) 1 patch TRANSDERMA DAILY PRN; Protocol PRN Reason: cervical pain Last Admin: 07/24/21 15:38 Dose: 1 patch Documented by: Melatonin (Melatonin 3 Mg Tablet) 3 mg PO BEDTIME PRN PRN Reason: Insomnia Multivitamins/Vitamin C (Multivitamin Tablet) 1 tab PO DAILY [facility] Last Admin: 07/26/21 08:50 Dose: 1 tab Documented by: Paliperidone (Paliperidone Er 6 Mg Tab.Er.24) 6 mg PO DAILY [facility] Last Admin: 07/26/21 08:50 Dose: 6 mg Documented by: Paliperidone Palmitate (Paliperidone Palmitate 234 Mg/1.5 Ml Syringe) 234 mg IM Q30D [facility] Last Admin: 07/21/21 14:15 Dose: 234 mg Documented by: Allergies Allergies Allergy/AdvReac Type Severity Reaction Status Date / Time haloperidol [From HALDOL] Allergy Severe DYSTONIA Verified 04/19/21 06:28 ziprasidone [From GEODON] Allergy Severe DYSTONIA Verified 04/19/21 06:28 Assessment & Plan Assessment & Plan (1) Schizoaffective disorder, bipolar type: Status: Acute Code(s): F25.0 - Schizoaffective disorder, bipolar type Plan 05/07/21 Invega 6 mg 05/08. Continue Thorazine prn. (pt required IM back up on 05/07/21) 05/08/21 Continue current plan of care. 05/09/21: Ct w plan per [facility] order 05/10/21: Ct Rx plan 05/11/21: Continue Invega titration. 05/12/21 Pt tolerating Invega. Will begin Sustenna on 05/13. 05/13/21 Sustanna given, tolerated. Support, educate, integrate into milieu for added support. 05/14/21 Tolerating Sustenna. Calmer, more focused today. Asking for help with legal issues, attempting to organize his responsibilities 05/15/21 Continue current plan. 05/16/21 Continue current plan 05/17/21 Continue current plan 05/18/21 Follow up with probation-pt agrees and signed JEANNETTE Second Sustenna injection 05/21. Tolerating with breakthrough sx with PO as well. 05/19/21 Team/Peers report evening/night agitation Depakote 500 mg ER HS 05/20/21 Continue current regime Scheduled Invega injection for 05/21 Continue to attempt alliance building, education, support 05/21/21 Continue current regimen, no changes to medication, will monitor for benefit on invega sustenna COKER. Still taking PO invega. Has not been taking PO depakote, so will not order a level. 05/22/21 Continue current regimen, pt is tolerating invega sustenna well. Not taking depakote. Appropriate on the unit. 05/23/21: No changes to above med plan. 05/24/21: No changes to above plan, continue PO invega until invega sustenna reaches steady state. Pt somewhat intrusive with high fiving staff but redirectable. 05/26/21: Continue current plan. [facility]ra application 05/27/21 Pt has been refusing Depakote at hs with resulting poor sleep. Will give Chlorpromazine IM if Depakote is refused. 05/28/21 Continue current plan Labs 06/01/20. 05/29/21 Continue with current plan 05/30/21 continue with current treatment plan 05/31/21 continue with current treatment plan 06/01/21 Discontinue Depakote-pt prefers Chlorpromazine at HS-50 mg as he reports it is more helpful with sleep quality assistance. 06/03/21: Education, support. Vibra application. 06/04/21: Increase Chlorpromazine to 75 mg HS to assist with mgt of lability. 06/05/21: Continue current regime 06/06 continue current medications 06/09/21: Continue current plan of care Support, Educate, Inform, encourage pt's interests. 06/11/21: More engaged in milieu today. Attentive to ADL's with team encouragement. Continue plan of care. 06/12/21: Continue current regime. Sustenna due 06/21/21. 06/13/21 - 06/14/21 No changes Continue with current treatment plan 06/15/21 Continue current plan of care Invega Sustenna injection due 06/21/21. 06/16/21 Continue current plan of care. 06/17/21 Continue current plan of care Increase Chlorpromazine to 100 mg HS Discussed tapering PO Invega most likely between second and third injection of COKER. Discussed with pt treating his mood. At this time he would like more time to assess effects of therapy and COKER. 06/18/21 Continue current plan. Offer support and structure 06/19/10 Sustenna Injection 06/21. 06/20/21 No changes to the above 06/21/21 No change 06/23/21- pt without SI/HI/VH/AH, no overt delusional content reported. overly familiar with staff/asking multiple request but polite and able to be redirected. 06/26/21- Processing discussion of 06/25/21. Elopement risk Continue current plan of care. 06/29/21- Denies SE of COKER given 06/21. Continues to decline psychopharmacology intervention for mood symptoms-prefers to talk it out . Update diagnostics- EKG, CBC, CMP, TSH, Lipids, A1c, TSH, B12,Folate Pt has expressed interest in leaning to speak and write Kazakh-given resources so he may explore this interest. Support/Educate LT Plan: Vibra 06/30/21: continue current treatment plan. pt stable. 07/01/21: Continue current treatment plan. 07/02/21: Continue current treatment plan. Review of EKG changes, RBBB with [facility] [place] Cardiology, Dr. Murillo-. They report this finding to be chronic, not in need of further eval or consult. 07/03- continue current treatment plan. 07/04- no medication changes 07/06/21- Continue current plan of care. LTP-Vibra transfer 07/07/21: Continue current plan of care. Assist pt at his request in addressing his financial concerns, need for PO Box assignment and issues with social security 07/08/21 Continue plan of care no change indicated at this time 07/09/21 Continue plan of care 07/10/21 Continue plan of care 07/11/21 Continue plan of care 07/11/21 Continue plan of care 07/12/21 Continue plan of care 07/14/21 Invega 6 mg po a.m. restart Thorazine IM back up if pt refuses. 07/15/21: Continue current plan. 07/16/21: Continue current plan. 07/19/21: No changes to medication plan 07/20/2021: Continue current regimen and plans 07/21/21: Invega Sustenna 234 mg IM to be given today or 07/22. Pt is aware. Continue current plan. 07/24/21: Support pt in transition to [facility] 07/26 continue current regimen and plan on transition to [facility] I spent minutes with the patient and/or on the patient floor today, greater than?50% of which was spent counseling/coordinating care. Reason for contiued inpatient stay Substantial Risk for: med/psych decompensation
[2021-07-26 18:00] VITALS: BP 116/68; PULSE 82; RESP 16; TEMP 36.5; O2SAT 97
[2021-07-26] MEDS: chlorproMAZINE HCl 100 MG TABLET PO (20:17)
[2021-07-27 06:00] VITALS: BP 119/72; PULSE 84; RESP 18; TEMP 37; O2SAT 98
[2021-07-27] MEDS: Paliperidone ER 6 MG TAB.ER.24 PO (09:13)
[2021-07-27] MEDS: Multivitamin TABLET 1 TAB PO (09:13)
--- NOTE | 2021-07-27 16:06 | P.PNPSI_ITS ---
Subjective Subjective Date of Service: 07/27/21 Reason For Visit: Schizophrenia Subjective Notes: Section 8 Healthcare Proxy: No Guardianship: No Medical Problems Affecting Mental Status: No Interim History: Reviewed anger with mother-feeling sad, uncared for by family who will not visit. She is more concerned that our cousins . Discussed worry about legal charges-told by his business attorney there are more charges than he was aware of-misdemeanor charges associated with main charges. Discussed with pt that we would be able to discuss his treatment with his business attorney if he chooses and signs Jeannette. Discussed moving forward. Pt has been informed his transfer will be possibly within the next two weeks-he reports feelings of anxiety and apprehension. Medication Compliance: Yes Side effects from medications: No Attending Groups: Yes Review of Systems Acute medical concerns: No Medical Review of Systems: unchanged Review of Systems Reports behavioral changes Psychiatric: Reports abnormal sleep pattern (DIANNE 4am), Reports anxiety, Reports behavioral changes, Reports depression, Reports difficulty concentrating, Reports auditory hallucinations, Reports irritability, Reports paranoia, Reports visual hallucinations, Reports homicidal ideation (denies) and Reports suicidal ideation (denies) Mental Status Exam Mental Status Exam Patient Appearance: Appropriate Patient Orientation: Person, Place, Time and Situation Level of Consciousness: Alert Patient Behavior: Talkative and Good Eye Contact Mood Description: Depressed, Fearful, Anxious and Apprehensive Affect Description: Anxious Patient Cognition Impaired: No Ability to Follow Directions: Good Speech Pattern: Spontaneous Speech Memory Description: Episodic Impaired Hallucinations: Auditory and Visual Delusions: Paranoid Ideation Thought Process: Distracted and Goal Oriented Thought Content: positive for Circumstantial, positive for Goal Oriented and positive for Perseveration Depressive Symptoms: Increased Anxiety, Increased Irritability and Difficulty Sleeping (DIANNE) Judgement: Poor Diagnostics Vital Signs (24Hr): Vital Signs - 24 hr 07/26/21 18:00 07/27/21 06:00 Temperature 97.7 F 98.6 F Pulse Rate 82 84 Respiratory Rate 16 18 Blood Pressure 116/68 119/72 Pulse Oximetry 97 98 BMI result Body Mass Index 26.6 Labs Results: 07/01/21 08:13 07/01/21 08:13 Imaging Radiology Impressions: ITS Impressions Face X-Ray 04/21/21 15:29 IMPRESSION: No fracture seen. Orbit X-Ray 04/21/21 15:29 IMPRESSION: No fracture seen. Cervical Spine CT 04/24/21 22:24 IMPRESSION: No evidence of acute intracranial abnormalities. No evidence of acute maxillofacial fractures. However, evaluation of the inferior mandibular body is limited due to motion and although no definite fractures or surrounding soft tissue thickening/hematoma are identified, clinical correlation for pain/tenderness in the inferior mandible should be obtained as this is suboptimally assessed in this study. No acute cervical fractures or malalignment. Face CT 04/24/21 22:24 IMPRESSION: No evidence of acute intracranial abnormalities. No evidence of acute maxillofacial fractures. However, evaluation of the inferior mandibular body is limited due to motion and although no definite fractures or surrounding soft tissue thickening/hematoma are identified, clinical correlation for pain/tenderness in the inferior mandible should be obtained as this is suboptimally assessed in this study. No acute cervical fractures or malalignment. Head CT 04/24/21 22:24 IMPRESSION: No evidence of acute intracranial abnormalities. No evidence of acute maxillofacial fractures. However, evaluation of the inferior mandibular body is limited due to motion and although no definite fractures or surrounding soft tissue thickening/hematoma are identified, clinical correlation for pain/tenderness in the inferior mandible should be obtained as this is suboptimally assessed in this study. No acute cervical fractures or malalignment. Toe X-Ray 06/22/21 19:00 IMPRESSION: No appreciable phalangeal fractures of the right toes. Medications Medications Current Medications Benztropine Mesylate (Benztropine Mesylate 1 Mg Tablet) 1 mg PO TID PRN PRN Reason: Extrapyramidal Effects Chlorpromazine HCl (Chlorpromazine Hcl 100 Mg Tablet) 100 mg PO BID PRN PRN Reason: psychotic agitation Last Admin: 06/29/21 21:04 Dose: 100 mg Documented by: Chlorpromazine HCl (Chlorpromazine Hcl 100 Mg Tablet) 100 mg PO BEDTIME MARGAUX Last Admin: 07/26/21 20:17 Dose: 100 mg Documented by: Chlorpromazine HCl (Chlorpromazine Hcl 50 Mg/2 Ml Ampul) 100 mg IM BEDTIME PRN PRN Reason: if pt refuses PO per court order Chlorpromazine HCl (Chlorpromazine Hcl 50 Mg/2 Ml Ampul) 50 mg IM DAILY PRN PRN Reason: If pt refuses po Invega/court Ibuprofen (Ibuprofen 600 Mg Tablet) 600 mg PO Q4H PRN PRN Reason: Pain, Moderate (Pain Scale 4-6 Last Admin: 07/25/21 09:22 Dose: 600 mg Documented by: Lidocaine (Lidocaine 4 % Patch Adh..Patch) 1 patch TRANSDERMA DAILY PRN; Protocol PRN Reason: cervical pain Last Admin: 07/24/21 15:38 Dose: 1 patch Documented by: Melatonin (Melatonin 3 Mg Tablet) 3 mg PO BEDTIME PRN PRN Reason: Insomnia Multivitamins/Vitamin C (Multivitamin Tablet) 1 tab PO DAILY [facility] Last Admin: 07/27/21 09:13 Dose: 1 tab Documented by: Paliperidone (Paliperidone Er 6 Mg Tab.Er.24) 6 mg PO DAILY [facility] Last Admin: 07/27/21 09:13 Dose: 6 mg Documented by: Paliperidone Palmitate (Paliperidone Palmitate 234 Mg/1.5 Ml Syringe) 234 mg IM Q30D [facility] Last Admin: 07/21/21 14:15 Dose: 234 mg Documented by: Allergies Allergies Allergy/AdvReac Type Severity Reaction Status Date / Time haloperidol [From HALDOL] Allergy Severe DYSTONIA Verified 04/19/21 06:28 ziprasidone [From GEODON] Allergy Severe DYSTONIA Verified 04/19/21 06:28 Assessment & Plan Assessment & Plan (1) Schizoaffective disorder, bipolar type: Status: Acute Code(s): F25.0 - Schizoaffective disorder, bipolar type Plan 05/07/21 Invega 6 mg 05/08. Continue Thorazine prn. (pt required IM back up on 05/07/21) 05/08/21 Continue current plan of care. 05/09/21: Ct w plan per Wolff order 05/10/21: Ct Rx plan 05/11/21: Continue Invega titration. 05/12/21 Pt tolerating Invega. Will begin Sustenna on 05/13. 05/13/21 Sustanna given, tolerated. Support, educate, integrate into milieu for added support. 05/14/21 Tolerating Sustenna. Calmer, more focused today. Asking for help with legal issues, attempting to or ganize his responsibilities 05/15/21 Continue current plan. 05/16/21 Continue current plan 05/17/21 Continue current plan 05/18/21 Follow up with probation-pt agrees and signed JEANNETTE Second Sustenna injection 05/21. Tolerating with breakthrough sx with PO as well. 05/19/21 Team/Peers report evening/night agitation Depakote 500 mg ER HS 05/20/21 Continue current regime Scheduled Invega injection for 05/21 Continue to attempt alliance building, education, support 05/21/21 Continue current regimen, no changes to medication, will monitor for benefit on invega sustenna COKER. Still taking PO invega. Has not been taking PO depakote, so will not order a level. 05/22/21 Continue current regimen, pt is tolerating invega sustenna well. Not taking depakote. Appropriate on the unit. 05/23/21: No changes to above med plan. 05/24/21: No changes to above plan, continue PO invega until invega sustenna reaches steady state. Pt somewhat intrusive with high fiving staff but redirectable. 05/26/21: Continue current plan. [facility]ra application 05/27/21 Pt has been refusing Depakote at hs with resulting poor sleep. Will give Chlorpromazine IM if Depakote is refused. 05/28/21 Continue current plan Labs 06/01/20. 05/29/21 Continue with current plan 05/30/21 continue with current treatment plan 05/31/21 continue with current treatment plan 06/01/21 Discontinue Depakote-pt prefers Chlorpromazine at HS-50 mg as he reports it is more helpful with sleep quality assistance. 06/03/21: Education, support. Vibra application. 06/04/21: Increase Chlorpromazine to 75 mg HS to assist with mgt of lability. 06/05/21: Continue current regime 06/06 continue current medications 06/09/21: Continue current plan of care Support, Educate, Inform, encourage pt's interests. 06/11/21: More engaged in milieu today. Attentive to ADL's with team encouragement. Continue plan of care. 06/12/21: Continue current regime. Sustenna due 06/21/21. 06/13/21 - 06/14/21 No changes Continue with current treatment plan 06/15/21 Continue current plan of care Invega Sustenna injection due 06/21/21. 06/16/21 Continue current plan of care. 06/17/21 Continue current plan of care Increase Chlorpromazine to 100 mg HS Discussed tapering PO Invega most likely between second and third injection of COKER. Discussed with pt treating his mood. At this time he would like more time to assess effects of therapy and COKER. 06/18/21 Continue current plan. Offer support and structure 06/19/10 Sustenna Injection 06/21. 06/20/21 No changes to the above 06/21/21 No change 06/23/21- pt without SI/HI/VH/AH, no overt delusional content reported. overly familiar with staff/asking multiple request but polite and able to be redirected. 06/26/21- Processing discussion of 06/25/21. Elopement risk Continue current plan of care. 06/29/21- Denies SE of COKER given 06/21. Continues to decline psychopharmacology intervention for mood symptoms-prefers to talk it out . Update diagnostics- EKG, CBC, CMP, TSH, Lipids, A1c, TSH, B12,Folate Pt has expressed interest in leaning to speak and write [place]orese-given resources so he may explore this interest. Support/Educate LT Plan: Vibra 06/30/21: continue current treatment plan. pt stable. 07/01/21: Continue current treatment plan. 07/02/21: Continue current treatment plan. Review of EKG changes, RBBB with [facility] Cardiology, Dr. Murillo-. They report this finding to be chronic, not in need of further eval or consult. 07/03- continue current treatment plan. 07/04- no medication changes 07/06/21- Continue current plan of care. LTP-[facility] transfer 07/07/21: Continue current plan of care. Assist pt at his request in addressing his financial concerns, need for PO Box assignment and issues with social security 07/08/21 Continue plan of care no change indicated at this time 07/09/21 Continue plan of care 07/10/21 Continue plan of care 07/11/21 Continue plan of care 07/11/21 Continue plan of care 07/12/21 Continue plan of care 07/14/21 Invega 6 mg po a.m. restart Thorazine IM back up if pt refuses. 07/15/21: Continue current plan. 07/16/21: Continue current plan. 07/19/21: No changes to medication plan 07/20/2021: Continue current regimen and plans 07/21/21: Invega Sustenna 234 mg IM to be given today or 07/22. Pt is aware. Continue current plan. 07/24/21: Support pt in transition to Vibra 07/26 continue current regimen and plan on transition to Vibra 07/27/21: Support of Asif in transition to [facility]ib[facility] I spent minutes with the patient and/or on the patient floor today, greater than?50% of which was spent counseling/coordinating care. Patient educated on: diagnosis and therapeutic strategies Informed Consent: further education needed Reason for contiued inpatient stay Substantial Risk for: harm to self, harm to others, inability to function and rapid decompensation
[2021-07-27 16:50] VITALS: BP 118/75; PULSE 91; TEMP 37.2
[2021-07-27] MEDS: chlorproMAZINE HCl 100 MG TABLET PO (21:55)
[2021-07-28 06:00] VITALS: BP 121/83; PULSE 91; RESP 18; TEMP 36.7; O2SAT 98
[2021-07-28] MEDS: Paliperidone ER 6 MG TAB.ER.24 PO (11:08)
[2021-07-28] MEDS: Multivitamin TABLET 1 TAB PO (11:08)
[2021-07-28] MEDS: chlorproMAZINE HCl 100 MG TABLET PO (22:00)
--- NOTE | 2021-07-28 22:29 | HO.PSYCHPN ---
Subjective Subjective Date of Service: 07/28/21 Reason For Visit: Schizophrenia Subjective Notes: Section 8 Interim History: Asif struggling with unit rules and boundaries regarding cell phone. Responding at times with anger and agitation, slamming doors, then retracting and apologizing. Increase in anxiety as he is aware that [facility] transfer will be sometime in the next few weeks. Intermittent questions regarding his court charges, supports for him at [facility] and disappointment with family as they have not visited (mother specifically). Medication Compliance: Yes Side effects from medications: No Attending Groups: Intermittent Review of Systems Acute medical concerns: No Medical Review of Systems: unchanged Review of Systems Reports behavioral changes Psychiatric: Reports anxiety, Reports behavioral changes, Reports depression, Reports irritability, Reports anhedonia, Reports mood swings and Reports paranoia Mental Status Exam Mental Status Exam Patient Appearance: Appropriate Patient Orientation: Person, Place, Time and Situation Level of Consciousness: Alert Patient Behavior: Guarded, Talkative, Cooperative, Suspicious, Restless, Anxious, Fearful, Distractible, Good Eye Contact and Pacing Mood Description: Suspicious and Labile Affect Description: Labile Patient Cognition Impaired: No Ability to Follow Directions: Good Speech Pattern: Spontaneous Speech Memory Description: Remote Impaired and Episodic Impaired Hallucinations: Auditory Delusions: Paranoid Ideation Perceptual Disturbances: Derealization Thought Process: Illogical, Distracted and Rumination Thought Content: positive for [place] and positive for Circumstantial Depressive Symptoms: Increased Anxiety and Increased Irritability Abnormal Motor Activity Signs and Symptoms: Restlessness Judgement: Poor Diagnostics Vital Signs (24Hr): Vital Signs - 24 hr 07/28/21 06:00 Temperature 98.1 F Pulse Rate 91 Respiratory Rate 18 Blood Pressure 121/83 Pulse Oximetry 98 BMI result Body Mass Index 26.6 Labs Results: 07/01/21 08:13 07/01/21 08:13 Imaging Radiology Impressions: ITS Impressions Face X-Ray 04/21/21 15:29 IMPRESSION: No fracture seen. Orbit X-Ray 04/21/21 15:29 IMPRESSION: No fracture seen. Cervical Spine CT 04/24/21 22:24 IMPRESSION: No evidence of acute intracranial abnormalities. No evidence of acute maxillofacial fractures. However, evaluation of the inferior mandibular body is limited due to motion and although no definite fractures or surrounding soft tissue thickening/hematoma are identified, clinical correlation for pain/tenderness in the inferior mandible should be obtained as this is suboptimally assessed in this study. No acute cervical fractures or malalignment. Face CT 04/24/21 22:24 IMPRESSION: No evidence of acute intracranial abnormalities. No evidence of acute maxillofacial fractures. However, evaluation of the inferior mandibular body is limited due to motion and although no definite fractures or surrounding soft tissue thickening/hematoma are identified, clinical correlation for pain/tenderness in the inferior mandible should be obtained as this is suboptimally assessed in this study. No acute cervical fractures or malalignment. Head CT 04/24/21 22:24 IMPRESSION: No evidence of acute intracranial abnormalities. No evidence of acute maxillofacial fractures. However, evaluation of the inferior mandibular body is limited due to motion and although no definite fractures or surrounding soft tissue thickening/hematoma are identified, clinical correlation for pain/tenderness in the inferior mandible should be obtained as this is suboptimally assessed in this study. No acute cervical fractures or malalignment. Toe X-Ray 06/22/21 19:00 IMPRESSION: No appreciable phalangeal fractures of the right toes. Medications Medications Current Medications Benztropine Mesylate (Benztropine Mesylate 1 Mg Tablet) 1 mg PO TID PRN PRN Reason: Extrapyramidal Effects Chlorpromazine HCl (Chlorpromazine Hcl 100 Mg Tablet) 100 mg PO BID PRN PRN Reason: psychotic agitation Last Admin: 06/29/21 21:04 Dose: 100 mg Documented by: Chlorpromazine HCl (Chlorpromazine Hcl 100 Mg Tablet) 100 mg PO BEDTIME MARGAUX Last Admin: 07/28/21 22:00 Dose: 100 mg Documented by: Chlorpromazine HCl (Chlorpromazine Hcl 50 Mg/2 Ml Ampul) 100 mg IM BEDTIME PRN PRN Reason: if pt refuses PO per court order Chlorpromazine HCl (Chlorpromazine Hcl 50 Mg/2 Ml Ampul) 50 mg IM DAILY PRN PRN Reason: If pt refuses po Invega/court Ibuprofen (Ibuprofen 600 Mg Tablet) 600 mg PO Q4H PRN PRN Reason: Pain, Moderate (Pain Scale 4-6 Last Admin: 07/25/21 09:22 Dose: 600 mg Documented by: Lidocaine (Lidocaine 4 % Patch Adh..Patch) 1 patch TRANSDERMA DAILY PRN; Protocol PRN Reason: cervical pain Last Admin: 07/24/21 15:38 Dose: 1 patch Documented by: Melatonin (Melatonin 3 Mg Tablet) 3 mg PO BEDTIME PRN PRN Reason: Insomnia Multivitamins/Vitamin C (Multivitamin Tablet) 1 tab PO DAILY [facility] Last Admin: 07/28/21 11:08 Dose: 1 tab Documented by: Paliperidone (Paliperidone Er 6 Mg Tab.Er.24) 6 mg PO DAILY [facility] Last Admin: 07/28/21 11:08 Dose: 6 mg Documented by: Paliperidone Palmitate (Paliperidone Palmitate 234 Mg/1.5 Ml Syringe) 234 mg IM Q30D [facility] Last Admin: 07/21/21 14:15 Dose: 234 mg Documented by: Allergies Allergies Allergy/AdvReac Type Severity Reaction Status Date / Time haloperidol [From HALDOL] Allergy Severe DYSTONIA Verified 04/19/21 06:28 ziprasidone [From GEODON] Allergy Severe DYSTONIA Verified 04/19/21 06:28 Assessment & Plan Assessment & Plan (1) Schizoaffective disorder, bipolar type: Status: Acute Code(s): F25.0 - Schizoaffective disorder, bipolar type Plan 05/07/21 Invega 6 mg 05/08. Continue Thorazine prn. (pt required IM back up on 05/07/21) 05/08/21 Continue current plan of care. 05/09/21: Ct w plan per [facility]ff order 05/10/21: Ct Rx plan 05/11/21: Continue Invega titration. 05/12/21 Pt tolerating Invega. Will begin Sustenna on 05/13. 05/13/21 Sustanna given, tolerated. Support, educate, integrate into milieu for added support. 05/14/21 Tolerating Sustenna. Calmer, more focused today. Asking for help with legal issues, attempting to organize his responsibilities 05/15/21 Continue current plan. 05/16/21 Continue current plan 05/17/21 Continue current plan 05/18/21 Follow up with probation-pt agrees and signed JEANNETTE Second Sustenna injection 05/21. Tolerating with breakthrough sx with PO as well. 05/19/21 Team/Peers report evening/night agitation Depakote 500 mg ER HS 05/20/21 Continue current regime Scheduled Invega injection for 05/21 Continue to attempt alliance building, education, support 05/21/21 Continue current regimen, no changes to medication, will monitor for benefit on invega sustenna COKER. Still taking PO invega. Has not been taking PO depakote, so will not order a level. 05/22/21 Continue current regimen, pt is tolerating invega sustenna well. Not taking depakote. Appropriate on the unit. 05/23/21: No changes to above med plan. 05/24/21: No changes to above plan, continue PO invega until invega sustenna reaches steady state. Pt somewhat intrusive with high fiving staff but redirectable. 05/26/21: Continue current plan. Vibra application 05/27/21 Pt has been refusing Depakote at hs with resulting poor sleep. Will give Chlorpromazine IM if Depakote is refused. 05/28/21 Continue current plan Labs 06/01/20. 05/29/21 Continue with current plan 05/30/21 continue with current treatment plan 05/31/21 continue with current treatment plan 06/01/21 Discontinue Depakote-pt prefers Chlorpromazine at HS-50 mg as he reports it is more helpful with sleep quality assistance. 06/03/21: Education, support. Vibra application. 06/04/21: Increase Chlorpromazine to 75 mg HS to assist with mgt of lability. 06/05/21: Continue current regime 06/06 continue current medications 06/09/21: Continue current plan of care Support, Educate, Inform, encourage pt's interests. 06/11/21: More engaged in milieu today. Attentive to ADL's with team encouragement. Continue plan of care. 06/12/21: Continue current regime. Sustenna due 06/21/21. 06/13/21 - 06/14/21 No changes Continue with current treatment plan 06/15/21 Continue current plan of care Invega Sustenna injection due 06/21/21. 06/16/21 Continue current plan of care. 06/17/21 Continue current plan of care Increase Chlorpromazine to 100 mg HS Discussed tapering PO Invega most likely between second and third injection of COKER. Discussed with pt treating his mood. At this time he would like more time to assess effects of therapy and COKER. 06/18/21 Continue current plan. Offer support and structure 06/19/10 Sustenna Injection 06/21. 06/20/21 No changes to the above 06/21/21 No change 06/23/21- pt without SI/HI/VH/AH, no overt delusional content reported. overly familiar with staff/asking multiple request but polite and able to be redirected. 06/26/21- Processing discussion of 06/25/21. Elopement risk Continue current plan of care. 06/29/21- Denies SE of COKER given 06/21. Continues to decline psychopharmacology intervention for mood symptoms-prefers to talk it out . Update diagnostics- EKG, CBC, CMP, TSH, Lipids, A1c, TSH, B12,Folate Pt has expressed interest in leaning to speak and write Indonesian-given resources so he may explore this interest. Support/Educate LT Plan: Vibra 06/30/21: continue current treatment plan. pt stable. 07/01/21: Continue current treatment plan. 07/02/21: Continue current treatment plan. Review of EKG changes, RBBB with [facility] Cardiology, Dr. Murillo-. They report this finding to be chronic, not in need of further eval or consult. 07/03- continue current treatment plan. 07/04- no medication changes 07/06/21- Continue current plan of care. [facility]TP-[facility] transfer 07/07/21: Continue current plan of care. Assist pt at his request in addressing his financial concerns, need for PO Box assignment and issues with social security 07/08/21 Continue plan of care no change indicated at this time 07/09/21 Continue plan of care 07/10/21 Continue plan of care 07/11/21 Continue plan of care 07/11/21 Continue plan of care 07/12/21 Continue plan of care 07/14/21 Invega 6 mg po a.m. restart Thorazine IM back up if pt refuses. 07/15/21: Continue current plan. 07/16/21: Continue current plan. 07/19/21: No changes to medication plan 07/20/2021: Continue current regimen and plans 07/21/21: Invega Sustenna 234 mg IM to be given today or 07/22. Pt is aware. Continue current plan. 07/24/21: Support pt in transition to Vibra 07/26 continue current regimen and plan on transition to [facility] 07/28/21: Increase in anxiety around possible transfer-testing of boundaries-terminating with anger and lability. Support in process of transition. Several discussions/offers with pt to assist with mood stabilization which he refuses medication intervention for. I spent minutes with the patient and/or on the patient floor today, greater than?50% of which was spent counseling/coordinating care. Patient educated on: medication risk/benefits and therapeutic strategies Informed Consent: further education needed Reason for contiued inpatient stay Substantial Risk for: harm to self, harm to others, inability to function and rapid decompensation
[2021-07-29 06:00] VITALS: BP 110/62; PULSE 89; RESP 18; TEMP 36.8; O2SAT 98
[2021-07-29] MEDS: Paliperidone ER 6 MG TAB.ER.24 PO (08:10)
[2021-07-29] MEDS: Multivitamin TABLET 1 TAB PO (08:10)
[2021-07-29 18:00] VITALS: BP 112/64; PULSE 69; RESP 16; TEMP 36.3; O2SAT 99
[2021-07-29] MEDS: chlorproMAZINE HCl 100 MG TABLET PO (19:14)
--- NOTE | 2021-07-29 20:02 | P.PNPSI_ITS ---
Subjective Subjective Date of Service: 07/29/21 Reason For Visit: Schizophrenia Interim History: Continues with intermittent lability, verbal agitation, anger. Today, tw ordered no cell phone until re-eval on 08/03/21 as Asif is unable to follow unit policy with use of the phone. Angry regarding family not visiting. Medication Compliance: Yes Side effects from medications: No Attending Groups: Intermittent Review of Systems Acute medical concerns: No Medical Review of Systems: unchanged Review of Systems Reports behavioral changes Psychiatric: Reports anxiety, Reports behavioral changes, Reports depression, Reports irritability, Reports anhedonia, Reports mood swings and Reports paranoia Mental Status Exam Mental Status Exam Patient Appearance: Appropriate Patient Orientation: Person, Place, Time and Situation Level of Consciousness: Alert Patient Behavior: Guarded, Talkative, Cooperative, Suspicious, Restless, Anxious, Fearful, Distractible, Good Eye Contact and Pacing Mood Description: Suspicious and Labile Affect Description: Labile Patient Cognition Impaired: No Ability to Follow Directions: Good Speech Pattern: Spontaneous Speech Memory Description: Remote Impaired and Episodic Impaired Hallucinations: Auditory Delusions: Paranoid Ideation Perceptual Disturbances: Derealization Thought Process: Illogical, Distracted and Rumination Thought Content: positive for [place] and positive for Circumstantial Depressive Symptoms: Increased Anxiety and Increased Irritability Abnormal Motor Activity Signs and Symptoms: Restlessness Judgement: Poor Diagnostics Vital Signs (24Hr): Vital Signs - 24 hr 07/29/21 06:00 Temperature 98.3 F Pulse Rate 89 Respiratory Rate 18 Blood Pressure 110/62 Pulse Oximetry 98 BMI result Body Mass Index 26.6 Labs Results: 07/01/21 08:13 07/01/21 08:13 Imaging Radiology Impressions: ITS Impressions Face X-Ray 04/21/21 15:29 IMPRESSION: No fracture seen. Orbit X-Ray 04/21/21 15:29 IMPRESSION: No fracture seen. Cervical Spine CT 04/24/21 22:24 IMPRESSION: No evidence of acute intracranial abnormalities. No evidence of acute maxillofacial fractures. However, evaluation of the inferior mandibular body is limited due to motion and although no definite fractures or surrounding soft tissue thickening/hematoma are identified, clinical correlation for pain/tenderness in the inferior mandible should be obtained as this is suboptimally assessed in this study. No acute cervical fractures or malalignment. Face CT 04/24/21 22:24 IMPRESSION: No evidence of acute intracranial abnormalities. No evidence of acute maxillofacial fractures. However, evaluation of the inferior mandibular body is limited due to motion and although no definite fractures or surrounding soft tissue thickening/hematoma are identified, clinical correlation for pain/tenderness in the inferior mandible should be obtained as this is suboptimally assessed in this study. No acute cervical fractures or malalignment. Head CT 04/24/21 22:24 IMPRESSION: No evidence of acute intracranial abnormalities. No evidence of acute maxillofacial fractures. However, evaluation of the inferior mandibular body is limited due to motion and although no definite fractures or surrounding soft tissue thickening/hematoma are identified, clinical correlation for pain/tenderness in the inferior mandible should be obtained as this is suboptimally assessed in this study. No acute cervical fractures or malalignment. Toe X-Ray 06/22/21 19:00 IMPRESSION: No appreciable phalangeal fractures of the right toes. Medications Medications Current Medications Benztropine Mesylate (Benztropine Mesylate 1 Mg Tablet) 1 mg PO TID PRN PRN Reason: Extrapyramidal Effects Chlorpromazine HCl (Chlorpromazine Hcl 100 Mg Tablet) 100 mg PO BID PRN PRN Reason: psychotic agitation Last Admin: 06/29/21 21:04 Dose: 100 mg Documented by: Chlorpromazine HCl (Chlorpromazine Hcl 100 Mg Tablet) 100 mg PO BEDTIME MARGAUX Last Admin: 07/29/21 19:14 Dose: 100 mg Documented by: Chlorpromazine HCl (Chlorpromazine Hcl 50 Mg/2 Ml Ampul) 100 mg IM BEDTIME PRN PRN Reason: if pt refuses PO per court order Chlorpromazine HCl (Chlorpromazine Hcl 50 Mg/2 Ml Ampul) 50 mg IM DAILY PRN PRN Reason: If pt refuses po Invega/court Ibuprofen (Ibuprofen 600 Mg Tablet) 600 mg PO Q4H PRN PRN Reason: Pain, Moderate (Pain Scale 4-6 Last Admin: 07/25/21 09:22 Dose: 600 mg Documented by: Lidocaine (Lidocaine 4 % Patch Adh..Patch) 1 patch TRANSDERMA DAILY PRN; Protocol PRN Reason: cervical pain Last Admin: 07/24/21 15:38 Dose: 1 patch Documented by: Melatonin (Melatonin 3 Mg Tablet) 3 mg PO BEDTIME PRN PRN Reason: Insomnia Multivitamins/Vitamin C (Multivitamin Tablet) 1 tab PO DAILY MARGAUX Last Admin: 07/29/21 08:10 Dose: 1 tab Documented by: Paliperidone (Paliperidone Er 6 Mg Tab.Er.24) 6 mg PO DAILY [facility] Last Admin: 07/29/21 08:10 Dose: 6 mg Documented by: Paliperidone Palmitate (Paliperidone Palmitate 234 Mg/1.5 Ml Syringe) 234 mg IM Q30D [facility] Last Admin: 07/21/21 14:15 Dose: 234 mg Documented by: Allergies Allergies Allergy/AdvReac Type Severity Reaction Status Date / Time haloperidol [From HALDOL] Allergy Severe DYSTONIA Verified 04/19/21 06:28 ziprasidone [From GEODON] Allergy Severe DYSTONIA Verified 04/19/21 06:28 Assessment & Plan Assessment & Plan (1) Schizoaffective disorder, bipolar type: Status: Acute Code(s): F25.0 - Schizoaffective disorder, bipolar type Plan 05/07/21 Invega 6 mg 05/08. Continue Thorazine prn. (pt required IM back up on 05/07/21) 05/08/21 Continue current plan of care. 05/09/21: Ct w plan per Wolff order 05/10/21: Ct Rx plan 05/11/21: Continue Invega titration. 05/12/21 Pt tolerating Invega. Will begin Sustenna on 05/13. 05/13/21 Sustanna given, tolerated. Support, educate, integrate into milieu for added support. 05/14/21 Tolerating Sustenna. Calmer, more focused today. Asking for help with legal issues, attempting to organize his responsibilities 05/15/21 Continue current plan. 05/16/21 Continue current plan 05/17/21 Continue current plan 05/18/21 Follow up with probation-pt agrees and signed JEANNETTE Second Sustenna injection 05/21. Tolerating with breakthrough sx with PO as well. 05/19/21 Team/Peers report evening/night agitation Depakote 500 mg ER HS 05/20/21 Continue current regime Scheduled Invega injection for 05/21 Continue to attempt alliance building, education, support 05/21/21 Continue current regimen, no changes to medication, will monitor for benefit on invega sustenna COKER. Still taking PO invega. Has not been taking PO depakote, so will not order a level. 05/22/21 Continue current regimen, pt is tolerating invega sustenna well. Not taking depakote. Appropriate on the unit. 05/23/21: No changes to above med plan. 05/24/21: No changes to above plan, continue PO invega until invega sustenna reaches steady state. Pt somewhat intrusive with high fiving staff but redirectable. 05/26/21: Continue current plan. Vibra application 05/27/21 Pt has been refusing Depakote at hs with resulting poor sleep. Will give Chlorpromazine IM if Depakote is refused. 05/28/21 Continue current plan Labs 06/01/20. 05/29/21 Continue with current plan 05/30/21 continue with current treatment plan 05/31/21 continue with current treatment plan 06/01/21 Discontinue Depakote-pt prefers Chlorpromazine at HS-50 mg as he reports it is more helpful with sleep quality assistance. 06/03/21: Education, support. Vibra application. 06/04/21: Increase Chlorpromazine to 75 mg HS to assist with mgt of lability. 06/05/21: Continue current regime 06/06 continue current medications 06/09/21: Continue current plan of care Support, Educate, Inform, encourage pt's interests. 06/11/21: More engaged in milieu today. Attentive to ADL's with team encouragement. Continue plan of care. 06/12/21: Continue current regime. Sustenna due 06/21/21. 06/13/21 - 06/14/21 No changes Continue with current treatment plan 06/15/21 Continue current plan of care Invega Sustenna injection due 06/21/21. 06/16/21 Continue current plan of care. 06/17/21 Continue current plan of care Increase Chlorpromazine to 100 mg HS Discussed tapering PO Invega most likely between second and third injection of COKER. Discussed with pt treating his mood. At this time he would like more time to assess effects of therapy and COKER. 06/18/21 Continue current plan. Offer support and structure 06/19/10 Sustenna Injection 06/21. 06/20/21 No changes to the above 06/21/21 No change 06/23/21- pt without SI/HI/VH/AH, no overt delusional content reported. overly familiar with staff/asking multiple request but polite and able to be redirect ed. 06/26/21- Processing discussion of 06/25/21. Elopement risk Continue current plan of care. 06/29/21- Denies SE of COKER given 06/21. Continues to decline psychopharmacology intervention for mood symptoms-prefers to talk it out . Update diagnostics- EKG, CBC, CMP, TSH, Lipids, A1c, TSH, B12,Folate Pt has expressed interest in leaning to speak and write Burkinan-given resources so he may explore this interest. Support/Educate LT Plan: Vibra 06/30/21: continue current treatment plan. pt stable. 07/01/21: Continue current treatment plan. 07/02/21: Continue current treatment plan. Review of EKG changes, RBBB with [facility] Cardiology, Dr. Murillo-. They report this finding to be chronic, not in need of further eval or consult. 07/03- continue current treatment plan. 07/04- no medication changes 07/06/21- Continue current plan of care. LTP-Vibra transfer 07/07/21: Continue current plan of care. Assist pt at his request in addressing his financial concerns, need for PO Box assignment and issues with social security 07/08/21 Continue plan of care no change indicated at this time 07/09/21 Continue plan of care 07/10/21 Continue plan of care 07/11/21 Continue plan of care 07/11/21 Continue plan of care 07/12/21 Continue plan of care 07/14/21 Invega 6 mg po a.m. restart Thorazine IM back up if pt refuses. 07/15/21: Continue current plan. 07/16/21: Continue current plan. 07/19/21: No changes to medication plan 07/20/2021: Continue current regimen and plans 07/21/21: Invega Sustenna 234 mg IM to be given today or 07/22. Pt is aware. Continue current plan. 07/24/21: Support pt in transition to Vibra 07/26 continue current regimen and plan on transition to Vibra 07/27/21: Support of Asif in transition to Vibra 07/29/21: Support in time of transition. Continue with clear boundaries regarding unit policy. Declines assist with mood sx. Continue current plan of care. I spent minutes with the patient and/or on the patient floor today, greater than?50% of which was spent counseling/coordinating care. Patient educated on: therapeutic strategies Informed Consent: understands Reason for contiued inpatient stay Substantial Risk for: harm to self, harm to others, inability to function and rapid decompensation
[2021-07-30] MEDS: Multivitamin TABLET 1 TAB PO (08:57)
[2021-07-30] MEDS: Paliperidone ER 6 MG TAB.ER.24 PO (08:57)
[2021-07-30 18:00] VITALS: BP 122/79; PULSE 86; RESP 16; TEMP 36.7; O2SAT 98
--- NOTE | 2021-07-30 18:00 | P.PNPSI_ITS ---
Subjective Subjective Date of Service: 07/30/21 Reason For Visit: Schizophrenia Interim History: I am sorry that I have behaved this way against you all. I will go to [facility] Tuesday-I am excited to move on. Pt reports he will transfer to [facility] next week. Mother visited today. Pt reports they had a period of argumentative content, but left the visit in peace. Pt pleased with the outcome. Team report intermittent lability. PPD ordered. Will update diagnostics in preparation for transfer. Medication Compliance: Yes Side effects from medications: No Attending Groups: Intermittent Review of Systems Acute medical concerns: No Medical Review of Systems: unchanged Review of Systems Reports behavioral changes Psychiatric: Reports anxiety, Reports behavioral changes, Reports depression, Reports irritability, Reports anhedonia, Reports mood swings and Reports paranoia Mental Status Exam Mental Status Exam Patient Appearance: Appropriate Patient Orientation: Person, Place, Time and Situation Level of Consciousness: Alert Patient Behavior: Guarded, Talkative, Cooperative, Suspicious, Restless, Anxious, Fearful, Distractible, Good Eye Contact and Pacing Mood Description: Suspicious and Labile Affect Description: Labile Patient Cognition Impaired: No Ability to Follow Directions: Good Speech Pattern: Spontaneous Speech Memory Description: Remote Impaired and Episodic Impaired Hallucinations: Auditory Delusions: Paranoid Ideation Perceptual Disturbances: Derealization Thought Process: Illogical, Distracted and Rumination Thought Content: positive for [place] and positive for Circumstantial Depressive Symptoms: Increased Anxiety and Increased Irritability Abnormal Motor Activity Signs and Symptoms: Restlessness Judgement: Poor Diagnostics Vital Signs (24Hr): BMI result Body Mass Index 26.6 Labs Results: 07/01/21 08:13 07/01/21 08:13 Imaging Radiology Impressions: ITS Impressions Face X-Ray 04/21/21 15:29 IMPRESSION: No fracture seen. Orbit X-Ray 04/21/21 15:29 IMPRESSION: No fracture seen. Cervical Spine CT 04/24/21 22:24 IMPRESSION: No evidence of acute intracranial abnormalities. No evidence of acute maxillofacial fractures. However, evaluation of the inferior mandibular body is limited due to motion and although no definite fractures or surrounding soft tissue thickening/hematoma are identified, clinical correlation for pain/tenderness in the inferior mandible should be obtained as this is suboptimally assessed in this study. No acute cervical fractures or malalignment. Face CT 04/24/21 22:24 IMPRESSION: No evidence of acute intracranial abnormalities. No evidence of acute maxillofacial fractures. However, evaluation of the inferior mandibular body is limited due to motion and although no definite fractures or surrounding soft tissue thickening/hematoma are identified, clinical correlation for pain/tenderness in the inferior mandible should be obtained as this is suboptimally assessed in this study. No acute cervical fractures or malalignment. Head CT 04/24/21 22:24 IMPRESSION: No evidence of acute intracranial abnormalities. No evidence of acute maxillofacial fractures. However, evaluation of the inferior mandibular body is limited due to motion and although no definite fractures or surrounding soft tissue thickening/hematoma are identified, clinical correlation for pain/tenderness in the inferior mandible should be obtained as this is suboptimally assessed in this study. No acute cervical fractures or malalignment. Toe X-Ray 06/22/21 19:00 IMPRESSION: No appreciable phalangeal fractures of the right toes. Medications Medications Current Medications Benztropine Mesylate (Benztropine Mesylate 1 Mg Tablet) 1 mg PO TID PRN PRN Reason: Extrapyramidal Effects Chlorpromazine HCl (Chlorpromazine Hcl 100 Mg Tablet) 100 mg PO BID PRN PRN Reason: psychotic agitation Last Admin: 06/29/21 21:04 Dose: 100 mg Documented by: Chlorpromazine HCl (Chlorpromazine Hcl 100 Mg Tablet) 100 mg PO BEDTIME MARGAUX Last Admin: 07/29/21 19:14 Dose: 100 mg Documented by: Chlorpromazine HCl (Chlorpromazine Hcl 50 Mg/2 Ml Ampul) 100 mg IM BEDTIME PRN PRN Reason: if pt refuses PO per court order Chlorpromazine HCl (Chlorpromazine Hcl 50 Mg/2 Ml Ampul) 50 mg IM DAILY PRN PRN Reason: If pt refuses po Invega/court Ibuprofen (Ibuprofen 600 Mg Tablet) 600 mg PO Q4H PRN PRN Reason: Pain, Moderate (Pain Scale 4-6 Last Admin: 07/25/21 09:22 Dose: 600 mg Documented by: Lidocaine (Lidocaine 4 % Patch Adh..Patch) 1 patch TRANSDERMA DAILY PRN; Protocol PRN Reason: cervical pain Last Admin: 07/24/21 15:38 Dose: 1 patch Documented by: Melatonin (Melatonin 3 Mg Tablet) 3 mg PO BEDTIME PRN PRN Reason: Insomnia Multivitamins/Vitamin C (Multivitamin Tablet) 1 tab PO DAILY [facility] Last Admin: 07/30/21 08:57 Dose: 1 tab Documented by: Paliperidone (Paliperidone Er 6 Mg Tab.Er.24) 6 mg PO DAILY [facility] Last Admin: 07/30/21 08:57 Dose: 6 mg Documented by: Paliperidone Palmitate (Paliperidone Palmitate 234 Mg/1.5 Ml Syringe) 234 mg IM Q30D [facility] Last Admin: 07/21/21 14:15 Dose: 234 mg Documented by: Allergies Allergies Allergy/AdvReac Type Severity Reaction Status Date / Time haloperidol [From HALDOL] Allergy Severe DYSTONIA Verified 04/19/21 06:28 ziprasidone [From GEODON] Allergy Severe DYSTONIA Verified 04/19/21 06:28 Assessment & Plan Assessment & Plan (1) Schizoaffective disorder, bipolar type: Status: Acute Code(s): F25.0 - Schizoaffective disorder, bipolar type Plan 05/07/21 Invega 6 mg 05/08. Continue Thorazine prn. (pt required IM back up on 05/07/21) 05/08/21 Continue current plan of care. 05/09/21: Ct w plan per [facility] order 05/10/21: Ct Rx plan 05/11/21: Continue Invega titration. 05/12/21 Pt tolerating Invega. Will begin Sustenna on 05/13. 05/13/21 Sustanna given, tolerated. Support, educate, integrate into milieu for added support. 05/14/21 Tolerating Sustenna. Calmer, more focused today. Asking for help with legal issues, attempting to organize his responsibilities 05/15/21 Continue current plan. 05/16/21 Continue current plan 05/17/21 Continue current plan 05/18/21 Follow up with probation-pt agrees and signed JEANNETTE Second Sustenna injection 05/21. Tolerating with breakthrough sx with PO as well. 05/19/21 Team/Peers report evening/night agitation Depakote 500 mg ER HS 05/20/21 Continue current regime Scheduled Invega injection for 05/21 Continue to attempt alliance building, education, support 05/21/21 Continue current regimen, no changes to medication, will monitor for benefit on invega sustenna COKER. Still taking PO invega. Has not been taking PO depakote, so will not order a level. 05/22/21 Continue current regimen, pt is tolerating invega sustenna well. Not taking depakote. Appropriate on the unit. 05/23/21: No changes to above med plan. 05/24/21: No changes to above plan, continue PO invega until invega sustenna reaches steady state. Pt somewhat intrusive with high fiving staff but redirectable. 05/26/21: Continue current plan. Vibra application 05/27/21 Pt has been refusing Depakote at hs with resulting poor sleep. Will give Chlorpromazine IM if Depakote is refused. 05/28/21 Continue current plan Labs 06/01/20. 05/29/21 Continue with current plan 05/30/21 continue with current treatment plan 05/31/21 continue with current treatment plan 06/01/21 Discontinue Depakote-pt prefers Chlorpromazine at HS-50 mg as he reports it is more helpful with sleep quality assistance. 06/03/21: Education, support. Vibra application. 06/04/21: Increase Chlorpromazine to 75 mg HS to assist with mgt of lability. 06/05/21: Continue current regime 06/06 continue current medications 06/09/21: Continue current plan of care Support, Educate, Inform, encourage pt's interests. 06/11/21: More engaged in milieu today. Attentive to ADL's with team encouragement. Continue plan of care. 06/12/21: Continue current regime. Sustenna due 06/21/21. 06/13/21 - 06/14/21 No changes Continue with current treatment plan 06/15/21 Continue current plan of care Invega Sustenna injection due 06/21/21. 06/16/21 Continue current plan of care. 06/17/21 Continue current plan of care Increase Chlorpromazine to 100 mg HS Discussed tapering PO Invega most likely between second and third injection of COKER. Discussed with pt treating his mood. At this time he would like more time to assess effects of therapy and COKER. 06/18/21 Continue current plan. Offer support and structure 06/19/10 Sustenna Injection 06/21. 06/20/21 No changes to the above 06/21/21 No change 06/23/21- pt without SI/HI/VH/AH, no overt delusional content reported. overly familiar with staff/asking multiple request but polite and able to be red irected. 06/26/21- Processing discussion of 06/25/21. Elopement risk Continue current plan of care. 06/29/21- Denies SE of COKER given 06/21. Continues to decline psychopharmacology intervention for mood symptoms-prefers to talk it out . Update diagnostics- EKG, CBC, CMP, TSH, Lipids, A1c, TSH, B12,Folate Pt has expressed interest in leaning to speak and write Hebrew-given resources so he may explore this interest. Support/Educate LT Plan: Vibra 06/30/21: continue current treatment plan. pt stable. 07/01/21: Continue current treatment plan. 07/02/21: Continue current treatment plan. Review of EKG changes, RBBB with [facility] Cardiology, Dr. Murillo-. They report this finding to be chronic, not in need of further eval or consult. 07/03- continue current treatment plan. 07/04- no medication changes 07/06/21- Continue current plan of care. LTP-Vibra transfer 07/07/21: Continue current plan of care. Assist pt at his request in addressing his financial concerns, need for PO Box assignment and issues with social security 07/08/21 Continue plan of care no change indicated at this time 07/09/21 Continue plan of care 07/10/21 Continue plan of care 07/11/21 Continue plan of care 07/11/21 Continue plan of care 07/12/21 Continue plan of care 07/14/21 Invega 6 mg po a.m. restart Thorazine IM back up if pt refuses. 07/15/21: Continue current plan. 07/16/21: Continue current plan. 07/19/21: No changes to medication plan 07/20/2021: Continue current regimen and plans 07/21/21: Invega Sustenna 234 mg IM to be given today or 07/22. Pt is aware. Continue current plan. 07/24/21: Support pt in transition to Vibra 07/26 continue current regimen and plan on transition to Vibra 07/27/21: Support of Asif in transition to Vibra 07/29/21: Support in time of transition. Continue with clear boundaries regarding unit policy. Declines assist with mood sx. Continue current plan of care. 07/30/21: Diagnostics in preparation for transfer PPD CBCD, CMP, A1C, Lipid Panel, TSH, EKG I spent minutes with the patient and/or on the patient floor today, greater than?50% of which was spent counseling/coordinating care. Patient educated on: therapeutic strategies Informed Consent: understands and further education needed Reason for contiued inpatient stay Substantial Risk for: harm to self, harm to others and rapid decompensation
[2021-07-30] MEDS: chlorproMAZINE HCl 100 MG TABLET PO (19:34)
[2021-07-31 08:43] LABS: MANUAL DIFF FLAG NO
[2021-07-31 08:51] LABS: Basophils Percent Auto 0.2 % (0-2); Eosinophils Absolute Auto 0.1 X10*3/uL (0.0-0.4); Eosinophils Percent Auto 1.8 % (0-4); Hematocrit 42.5 % (42.0-52.0); Hemoglobin 13.7 g/dl (14.0-18.0); Imm Gran Abs Auto 0.04 X10*3/uL (0.00-0.03); Imm Gran Pct Auto 0.7 % (0.0-0.4); Lymphocytes Absolute Auto 1.8 X10*3/uL (1.2-4.9); Lymphocytes Percent Auto 29.8 % (20-40); Mean Corpuscular HGB Conc 32.2 g/dl (31.0-36.0); Mean Corpuscular Hemoglobin 26.3 pg (27.0-33.0); Mean Corpuscular Volume 81.6 fL (80.0-98.0); Mean Platelet Volume 10.1 fL (9.4-12.4); Monocytes Absolute Auto 0.4 X10*3/uL (0.1-1.2); Monocytes Percent Auto 7.3 % (2-11); Neutrophils Absolute Auto 3.6 x10*3/uL (2.0-8.3); Neutrophils Percent Auto 60.2 % (45-73); Platelet Count 168 X10*3/uL (160-400); Red Blood Count 5.21 X10*6/uL (4.60-5.80); Red Cell Distribution Width 13.1 % (11.0-16.0)
[2021-07-31 09:00] VITALS: BP 123/64; PULSE 108; TEMP 36.5
--- NOTE | 2021-07-31 09:00 | ECG_ITS ---
Test Reason : MED CHECK Blood Pressure : / mmHG Vent. Rate : 097 BPM Atrial Rate : 097 BPM P-R Int : 164 ms QRS Dur : 108 ms QT Int : 344 ms P-R-T Axes : 069 -02 037 degrees QTc Int : 436 ms Normal sinus rhythm Incomplete right bundle branch block Minimal voltage criteria for LVH, may be normal variant ( Barney product ) Borderline ECG When compared with ECG of 01-JUL-2021 10:04, QRS axis Shifted right Referred By: Cheryl Alvarado Electronically Signed By:Jean Paul Robison
[2021-07-31 09:01] LABS: Estimated Average Glucose 105 mg/dL; Hemoglobin A1c % 5.3 %
[2021-07-31 09:06] LABS: Alanine Aminotransferase 21 U/L (0-40); Albumin Level 3.8 g/dL (3.5-5.0); Alkaline Phosphatase 48 U/L (39-117); Anion Gap 9 (12-20); Aspartate Amino Transferase 16 U/L (5-37); Bilirubin Total 0.4 mg/dL (0.0-1.0); Blood Urea Nitrogen 13 mg/dL (9-16); Calcium 9.1 mg/dL (8.4-10.2); Carbon Dioxide 28 mmol/L (22-29); Chloride 106 mmol/L (96-108); Cholesterol 152 mg/dL; Creatinine Clr Calc Pharmacy 89.6; Estimated Glomerular Filt Rate > 60; Glucose Random 91 mg/dL (60-115); HDL Cholesterol 47 mg/dL; LDL Cholesterol Calculated 99 mg/dl; Sodium 139 mmol/L (135-145); Total Protein 5.6 g/dL (6.5-8.0); Triglycerides 33 mg/dL
[2021-07-31 09:29] LABS: Thyroid Stimulating Hormone 2.79 uIU/mL (0.32-4.0)
[2021-07-31] MEDS: Paliperidone ER 6 MG TAB.ER.24 PO (09:32)
[2021-07-31] MEDS: Multivitamin TABLET 1 TAB PO (09:32)
--- NOTE | 2021-07-31 12:36 | HO.PSYCHPN ---
Subjective Subjective Date of Service: 07/31/21 Reason For Visit: Schizophrenia Subjective Notes: Section 8 Healthcare Proxy: No Guardianship: No Medical Problems Affecting Mental Status: No Interim History: Discharge to [facility] 08/04. Pt preparing to transfer. Beginning termination. Reports he is excited and pleased to be going Medication Compliance: Yes Side effects from medications: No Attending Groups: Yes Review of Systems Acute medical concerns: No Medical Review of Systems: unchanged Review of Systems Reports behavioral changes Psychiatric: Reports anxiety, Reports behavioral changes, Reports depression, Reports irritability, Reports anhedonia, Reports mood swings and Reports paranoia Mental Status Exam Mental Status Exam Patient Appearance: Appropriate Patient Orientation: Person, Place, Time and Situation Level of Consciousness: Alert Patient Behavior: Guarded, Talkative, Cooperative, Suspicious, Restless, Anxious, Fearful, Distractible, Good Eye Contact and Pacing Mood Description: Suspicious and Labile Affect Description: Labile Patient Cognition Impaired: No Ability to Follow Directions: Good Speech Pattern: Spontaneous Speech Memory Description: Remote Impaired and Episodic Impaired Hallucinations: Auditory Delusions: Paranoid Ideation Perceptual Disturbances: Derealization Thought Process: Illogical, Distracted and Rumination Thought Content: positive for [place] and positive for Circumstantial Depressive Symptoms: Increased Anxiety and Increased Irritability Abnormal Motor Activity Signs and Symptoms: Restlessness Judgement: Poor Diagnostics Vital Signs (24Hr): Vital Signs - 24 hr 07/30/21 18:00 Temperature 98.1 F Pulse Rate 86 Respiratory Rate 16 Blood Pressure 122/79 Pulse Oximetry 98 BMI result Body Mass Index 26.6 Labs Results: 07/31/21 08:04 07/31/21 08:04 Labs: Laboratory Results - last 48 hr 07/31/21 07/31/21 07/31/21 08:04 08:04 08:04 WBC 6.0 RBC 5.21 Hgb 13.7 L Hct 42.5 MCV 81.6 MCH 26.3 L MCHC 32.2 RDW 13.1 Plt Count 168 MPV 10.1 Immature Gran % (Auto) 0.7 H Neut % (Auto) 60.2 Lymph % (Auto) 29.8 [place] % (Auto) 7.3 Eos % (Auto) 1.8 Baso % (Auto) 0.2 Lymph # (Auto) 1.8 [place] # (Auto) 0.4 Eos # (Auto) 0.1 Baso # (Auto) 0.0 Abs Immat Gran (auto) 0.04 H Absolute Neuts (auto) 3.6 Absolute Nucleated RBC 0.000 Nucleated RBC % (auto) 0.0 Sodium 139 Potassium 4.0 Chloride 106 Carbon Dioxide 28 Anion Gap 9 L BUN 13 Creatinine 1.15 Estim Creat Clear Calc 89.6 Estimated GFR > 60 Random Glucose 91 Estimat Average Glucose 105 Hemoglobin A1c % 5.3 Calcium 9.1 Total Bilirubin 0.4 AST 16 D ALT 21 Alkaline Phosphatase 48 Total Protein 5.6 L Albumin 3.8 Triglycerides 33 Cholesterol 152 LDL Cholesterol, Calc 99 HDL Cholesterol 47 TSH 2.79 Imaging Radiology Impressions: ITS Impressions Face X-Ray 04/21/21 15:29 IMPRESSION: No fracture seen. Orbit X-Ray 04/21/21 15:29 IMPRESSION: No fracture seen. Cervical Spine CT 04/24/21 22:24 IMPRESSION: No evidence of acute intracranial abnormalities. No evidence of acute maxillofacial fractures. However, evaluation of the inferior mandibular body is limited due to motion and although no definite fractures or surrounding soft tissue thickening/hematoma are identified, clinical correlation for pain/tenderness in the inferior mandible should be obtained as this is suboptimally assessed in this study. No acute cervical fractures or malalignment. Face CT 04/24/21 22:24 IMPRESSION: No evidence of acute intracranial abnormalities. No evidence of acute maxillofacial fractures. However, evaluation of the inferior mandibular body is limited due to motion and although no definite fractures or surrounding soft tissue thickening/hematoma are identified, clinical correlation for pain/tenderness in the inferior mandible should be obtained as this is suboptimally assessed in this study. No acute cervical fractures or malalignment. Head CT 04/24/21 22:24 IMPRESSION: No evidence of acute intracranial abnormalities. No evidence of acute maxillofacial fractures. However, evaluation of the inferior mandibular body is limited due to motion and although no definite fractures or surrounding soft tissue thickening/hematoma are identified, clinical correlation for pain/tenderness in the inferior mandible should be obtained as this is suboptimally assessed in this study. No acute cervical fractures or malalignment. Toe X-Ray 06/22/21 19:00 IMPRESSION: No appreciable phalangeal fractures of the right toes. Medications Medications Current Medications Benztropine Mesylate (Benztropine Mesylate 1 Mg Tablet) 1 mg PO TID PRN PRN Reason: Extrapyramidal Effects Chlorpromazine HCl (Chlorpromazine Hcl 100 Mg Tablet) 100 mg PO BID PRN PRN Reason: psychotic agitation Last Admin: 06/29/21 21:04 Dose: 100 mg Documented by: Chlorpromazine HCl (Chlorpromazine Hcl 100 Mg Tablet) 100 mg PO BEDTIME [facility] Last Admin: 07/30/21 19:34 Dose: 100 mg Documented by: Chlorpromazine HCl (Chlorpromazine Hcl 50 Mg/2 Ml Ampul) 100 mg IM BEDTIME PRN PRN Reason: if pt refuses PO per court order Chlorpromazine HCl (Chlorpromazine Hcl 50 Mg/2 Ml Ampul) 50 mg IM DAILY PRN PRN Reason: If pt refuses po Invega/court Ibuprofen (Ibuprofen 600 Mg Tablet) 600 mg PO Q4H PRN PRN Reason: Pain, Moderate (Pain Scale 4-6 Last Admin: 07/25/21 09:22 Dose: 600 mg Documented by: Lidocaine (Lidocaine 4 % Patch Adh..Patch) 1 patch TRANSDERMA DAILY PRN; Protocol PRN Reason: cervical pain Last Admin: 07/24/21 15:38 Dose: 1 patch Documented by: Melatonin (Melatonin 3 Mg Tablet) 3 mg PO BEDTIME PRN PRN Reason: Insomnia Multivitamins/Vitamin C (Multivitamin Tablet) 1 tab PO DAILY [facility] Last Admin: 07/31/21 09:32 Dose: 1 tab Documented by: Paliperidone (Paliperidone Er 6 Mg Tab.Er.24) 6 mg PO DAILY [facility] Last Admin: 07/31/21 09:32 Dose: 6 mg Documented by: Paliperidone Palmitate (Paliperidone Palmitate 234 Mg/1.5 Ml Syringe) 234 mg IM Q30D [facility] Last Admin: 07/21/21 14:15 Dose: 234 mg Documented by: Allergies Allergies Allergy/AdvReac Type Severity Reaction Status Date / Time haloperidol [From HALDOL] Allergy Severe DYSTONIA Verified 04/19/21 06:28 ziprasidone [From GEODON] Allergy Severe DYSTONIA Verified 04/19/21 06:28 Assessment & Plan Assessment & Plan (1) Schizoaffective disorder, bipolar type: Status: Acute Code(s): F25.0 - Schizoaffective disorder, bipolar type Plan 05/07/21 Invega 6 mg 05/08. Continue Thorazine prn. (pt required IM back up on 05/07/21) 05/08/21 Continue current plan of care. 05/09/21: Ct w plan per [facility] order 05/10/21: Ct Rx plan 05/11/21: Continue Invega titration. 05/12/21 Pt tolerating Invega. Will begin Sustenna on 05/13. 05/13/21 Sustanna given, tolerated. Support, educate, integrate into milieu for added support. 05/14/21 Tolerating Sustenna. Calmer, more focused today. Asking for help with legal issues, attempting to organize his responsibilities 05/15/21 Continue current plan. 05/16/21 Continue current plan 05/17/21 Continue current plan 05/18/21 Follow up with probation-pt agrees and signed JEANNETTE Second Sustenna injection 05/21. Tolerating with breakthrough sx with PO as well. 05/19/21 Team/Peers report evening/night agitation Depakote 500 mg ER HS 05/20/21 Continue current regime Scheduled Invega injection for 05/21 Continue to attempt alliance building, education, support 05/21/21 Continue current regimen, no changes to medication, will monitor for benefit on invega sustenna COKER. Still taking PO invega. Has not been taking PO depakote, so will not order a level. 05/22/21 Continue current regimen, pt is tolerating invega sustenna well. Not taking depakote. Appropriate on the unit. 05/23/21: No changes to above med plan. 05/24/21: No changes to above plan, continue PO invega until invega sustenna reaches steady state. Pt somewhat intrusive with high fiving staff but redirectable. 05/26/21: Continue current plan. [facility]ra application 05/27/21 Pt has been refusing Depakote at hs with resulting poor sleep. Will give Chlorpromazine IM if Depakote is refused. 05/28/21 Continue current plan Labs 06/01/20. 05/29/21 Continue with current plan 05/30/21 continue with current treatment plan 05/31/21 continue with current treatment plan 06/01/21 Discontinue Depakote-pt prefers Chlorpromazine at HS-50 mg as he reports it is more helpful with sleep quality assistance. 06/03/21: Education, support. [facility]ibra application. 06/04/21: Increase Chlorpromazine to 75 mg HS to assist with mgt of lability. 06/05/21: Continue current regime 06/06 continue current medications 06/09/21: Continue current plan of care Support, Educate, Inform, encourage pt's interests. 06/11/21: More engaged in milieu today. Attentive to ADL's with team encouragement. Continue plan of care. 06/12/21: Continue current regime. Sustenna due 06/21/21. 06/13/21 - 06/14/21 No changes Continue with current treatment plan 06/15/21 Continue current plan of care Invega Sustenna injection due 06/21/21. 06/16/21 Continue current plan of care. 06/17/21 Continue current plan of care Increase Chlorpromazine to 100 mg HS Discussed tapering PO Invega most likely between second and third injection of COKER. Discussed with pt treating his mood. At this time he would like more time to assess effects of therapy and COKER. 06/18/21 Continue current plan. Offer support and structure 06/19/10 Sustenna Injection 06/21. 06/20/21 No changes to the above 06/21/21 No change 06/23/21- pt without SI/HI/VH/AH, no overt delusional content reported. overly familiar with staff/asking multiple request but polite and able to be redirected. 06/26/21- Processing discussion of 06/25/21. Elopement risk Continue current plan of care. 06/29/21- Denies SE of COKER given 06/21. Continues to decline psychopharmacology intervention for mood symptoms-prefers to talk it out . Update diagnostics- EKG, CBC, CMP, TSH, Lipids, A1c, TSH, B12,Folate Pt has expressed interest in leaning to speak and write Latvian-given resources so he may explore this interest. Support/Educate LT Plan: [facility] 06/30/21: continue current treatment plan. pt stable. 07/01/21: Continue current treatment plan. 07/02/21: Continue current treatment plan. Review of EKG changes, RBBB with [facility], Dr. Murillo-. They report this finding to be chronic, not in need of further eval or consult. 07/03- continue current treatment plan. 07/04- no medication changes 07/06/21- Continue current plan of care. LTP-[facility] transfer 07/07/21: Continue current plan of care. Assist pt at his request in addressing his financial concerns, need for PO Box assignment and issues with social security 07/08/21 Continue plan of care no change indicated at this time 07/09/21 Continue plan of care 07/10/21 Continue plan of care 07/11/21 Continue plan of care 07/11/21 Continue plan of care 07/12/21 Continue plan of care 07/14/21 Invega 6 mg po a.m. restart Thorazine IM back up if pt refuses. 07/15/21: Continue current plan. 07/16/21: Continue current plan. 07/19/21: No changes to medication plan 07/20/2021: Continue current regimen and plans 07/21/21: Invega Sustenna 234 mg IM to be given today or 07/22. Pt is aware. Continue current plan. 07/24/21: Support pt in transition to [facility] 07/26 continue current regimen and plan on transition to [facility] 07/27/21: Support of Asif in transition to [facility] 07/29/21: Support in time of transition. Continue with clear boundaries regarding unit policy. Declines assist with mood sx. Continue current plan of care. 07/30/21: Diagnostics in preparation for transfer PPD CBCD, CMP, A1C, Lipid Panel, TSH, EKG 07/31/21 Support pt in transition to [facility] I spent minutes with the patient and/or on the patient floor today, greater than?50% of which was spent counseling/coordinating care. Patient educated on: medication risk/benefits and therapeutic strategies Informed Consent: understands and further education needed Reason for contiued inpatient stay Substantial Risk for: harm to self, harm to others, inability to function and rapid decompensation
[2021-07-31 19:25] VITALS: BP 119/72; PULSE 88; TEMP 36.8
[2021-07-31] MEDS: chlorproMAZINE HCl 100 MG TABLET PO (19:54)
--- NOTE | 2021-08-01 00:10 | PC.NURSE ---
Per shift report, PPD planted on 07/30, read on 08/01 1400 - 08/02 1400.
[2021-08-01] MEDS: Multivitamin TABLET 1 TAB PO (08:59)
[2021-08-01] MEDS: Paliperidone ER 6 MG TAB.ER.24 PO (08:59)
--- NOTE | 2021-08-01 14:53 | PC.NURSE ---
PPD read. No redness or induration noted.
--- NOTE | 2021-08-01 15:34 | HO.PSYCHPN ---
Subjective Subjective Date of Service: 08/01/21 Reason For Visit: Schizophrenia Subjective Notes: Section 8 Interim History: Asif was mildly intrusive but does respond to re-direction. Vibra bed is pending Mental Status Exam Mental Status Exam Patient Appearance: Appropriate Patient Orientation: Person, Place, Time and Situation Level of Consciousness: Alert Patient Behavior: Guarded, Talkative, Cooperative, Suspicious, Restless, Anxious, Fearful, Distractible, Good Eye Contact and Pacing Mood Description: Suspicious and Labile Affect Description: Labile Patient Cognition Impaired: No Ability to Follow Directions: Good Speech Pattern: Spontaneous Speech Memory Description: Remote Impaired and Episodic Impaired Hallucinations: Auditory Delusions: Paranoid Ideation Perceptual Disturbances: Derealization Thought Process: Illogical, Distracted and Rumination Thought Content: positive for [place] and positive for Circumstantial Depressive Symptoms: Increased Anxiety and Increased Irritability Abnormal Motor Activity Signs and Symptoms: Restlessness Judgement: Poor Diagnostics Vital Signs (24Hr): Vital Signs - 24 hr 07/31/21 19:25 Temperature 98.3 F Pulse Rate 88 Blood Pressure 119/72 BMI result Body Mass Index 26.6 Labs Results: 07/31/21 08:04 07/31/21 08:04 Labs: Laboratory Results - last 48 hr 07/31/21 07/31/21 07/31/21 08:04 08:04 08:04 WBC 6.0 RBC 5.21 Hgb 13.7 L Hct 42.5 MCV 81.6 MCH 26.3 L MCHC 32.2 RDW 13.1 Plt Count 168 MPV 10.1 Immature Gran % (Auto) 0.7 H Neut % (Auto) 60.2 Lymph % (Auto) 29.8 [place] % (Auto) 7.3 Eos % (Auto) 1.8 Baso % (Auto) 0.2 Lymph # (Auto) 1.8 [place] # (Auto) 0.4 Eos # (Auto) 0.1 Baso # (Auto) 0.0 Abs Immat Gran (auto) 0.04 H Absolute Neuts (auto) 3.6 Absolute Nucleated RBC 0.000 Nucleated RBC % (auto) 0.0 Sodium 139 Potassium 4.0 Chloride 106 Carbon Dioxide 28 Anion Gap 9 L BUN 13 Creatinine 1.15 Estim Creat Clear Calc 89.6 Estimated GFR > 60 Random Glucose 91 Estimat Average Glucose 105 Hemoglobin A1c % 5.3 Calcium 9.1 Total Bilirubin 0.4 AST 16 D ALT 21 Alkaline Phosphatase 48 Total Protein 5.6 L Albumin 3.8 Triglycerides 33 Cholesterol 152 LDL Cholesterol, Calc 99 HDL Cholesterol 47 TSH 2.79 Imaging Radiology Impressions: ITS Impressions Face X-Ray 04/21/21 15:29 IMPRESSION: No fracture seen. Orbit X-Ray 04/21/21 15:29 IMPRESSION: No fracture seen. Cervical Spine CT 04/24/21 22:24 IMPRESSION: No evidence of acute intracranial abnormalities. No evidence of acute maxillofacial fractures. However, evaluation of the inferior mandibular body is limited due to motion and although no definite fractures or surrounding soft tissue thickening/hematoma are identified, clinical correlation for pain/tenderness in the inferior mandible should be obtained as this is suboptimally assessed in this study. No acute cervical fractures or malalignment. Face CT 04/24/21 22:24 IMPRESSION: No evidence of acute intracranial abnormalities. No evidence of acute maxillofacial fractures. However, evaluation of the inferior mandibular body is limited due to motion and although no definite fractures or surrounding soft tissue thickening/hematoma are identified, clinical correlation for pain/tenderness in the inferior mandible should be obtained as this is suboptimally assessed in this study. No acute cervical fractures or malalignment. Head CT 04/24/21 22:24 IMPRESSION: No evidence of acute intracranial abnormalities. No evidence of acute maxillofacial fractures. However, evaluation of the inferior mandibular body is limited due to motion and although no definite fractures or surrounding soft tissue thickening/hematoma are identified, clinical correlation for pain/tenderness in the inferior mandible should be obtained as this is suboptimally assessed in this study. No acute cervical fractures or malalignment. Toe X-Ray 06/22/21 19:00 IMPRESSION: No appreciable phalangeal fractures of the right toes. Medications Medications Current Medications Benztropine Mesylate (Benztropine Mesylate 1 Mg Tablet) 1 mg PO TID PRN PRN Reason: Extrapyramidal Effects Chlorpromazine HCl (Chlorpromazine Hcl 100 Mg Tablet) 100 mg PO BID PRN PRN Reason: psychotic agitation Last Admin: 06/29/21 21:04 Dose: 100 mg Documented by: Chlorpromazine HCl (Chlorpromazine Hcl 100 Mg Tablet) 100 mg PO BEDTIME [facility] Last Admin: 07/31/21 19:54 Dose: 100 mg Documented by: Chlorpromazine HCl (Chlorpromazine Hcl 50 Mg/2 Ml Ampul) 100 mg IM BEDTIME PRN PRN Reason: if pt refuses PO per court order Chlorpromazine HCl (Chlorpromazine Hcl 50 Mg/2 Ml Ampul) 50 mg IM DAILY PRN PRN Reason: If pt refuses po Invega/court Ibuprofen (Ibuprofen 600 Mg Tablet) 600 mg PO Q4H PRN PRN Reason: Pain, Moderate (Pain Scale 4-6 Last Admin: 07/25/21 09:22 Dose: 600 mg Documented by: Lidocaine (Lidocaine 4 % Patch Adh..Patch) 1 patch TRANSDERMA DAILY PRN; Protocol PRN Reason: cervical pain Last Admin: 07/24/21 15:38 Dose: 1 patch Documented by: Melatonin (Melatonin 3 Mg Tablet) 3 mg PO BEDTIME PRN PRN Reason: Insomnia Multivitamins/Vitamin C (Multivitamin Tablet) 1 tab PO DAILY [facility] Last Admin: 08/01/21 08:59 Dose: 1 tab Documented by: Paliperidone (Paliperidone Er 6 Mg Tab.Er.24) 6 mg PO DAILY [facility] Last Admin: 08/01/21 08:59 Dose: 6 mg Documented by: Paliperidone Palmitate (Paliperidone Palmitate 234 Mg/1.5 Ml Syringe) 234 mg IM Q30D [facility] Last Admin: 07/21/21 14:15 Dose: 234 mg Documented by: Allergies Allergies Allergy/AdvReac Type Severity Reaction Status Date / Time haloperidol [From HALDOL] Allergy Severe DYSTONIA Verified 04/19/21 06:28 ziprasidone [From GEODON] Allergy Severe DYSTONIA Verified 04/19/21 06:28 Assessment & Plan Assessment & Plan (1) Schizoaffective disorder, bipolar type: Status: Acute Code(s): F25.0 - Schizoaffective disorder, bipolar type Plan 05/07/21 Invega 6 mg 05/08. Continue Thorazine prn. (pt required IM back up on 05/07/21) 05/08/21 Continue current plan of care. 05/09/21: Ct w plan per [facility] order 05/10/21: Ct Rx plan 05/11/21: Continue Invega titration. 05/12/21 Pt tolerating Invega. Will begin Sustenna on 05/13. 05/13/21 Sustanna given, tolerated. Support, educate, integrate into milieu for added support. 05/14/21 Tolerating Sustenna. Calmer, more focused today. Asking for help with legal issues, attempting to organize his responsibilities 05/15/21 Continue current plan. 05/16/21 Continue current plan 05/17/21 Continue current plan 05/18/21 Follow up with probation-pt agrees and signed JEANNETTE Second Sustenna injection 05/21. Tolerating with breakthrough sx with PO as well. 05/19/21 Team/Peers report evening/night agitation Depakote 500 mg ER HS 05/20/21 Continue current regime Scheduled Invega injection for 05/21 Continue to attempt alliance building, education, support 05/21/21 Continue current regimen, no changes to medication, will monitor for benefit on invega sustenna COKER. Still taking PO invega. Has not been taking PO depakote, so will not order a level. 05/22/21 Continue current regimen, pt is tolerating invega sustenna well. Not taking depakote. Appropriate on the unit. 05/23/21: No changes to above med plan. 05/24/21: No changes to above plan, continue PO invega until invega sustenna reaches steady state. Pt somewhat intrusive with high fiving staff but redirectable. 05/26/21: Continue current plan. [facility]ibra application 05/27/21 Pt has been refusing Depakote at hs with resulting poor sleep. Will give Chlorpromazine IM if Depakote is refused. 05/28/21 Continue current plan Labs 06/01/20. 05/29/21 Continue with current plan 05/30/21 continue with current treatment plan 05/31/21 continue with current treatment plan 06/01/21 Discontinue Depakote-pt prefers Chlorpromazine at HS-50 mg as he reports it is more helpful with sleep quality assistance. 06/03/21: Education, support. Vibra application. 06/04/21: Increase Chlorpromazine to 75 mg HS to assist with mgt of lability. 06/05/21: Continue current regime 06/06 continue current medications 06/09/21: Continue current plan of care Support, Educate, Inform, encourage pt's interests. 06/11/21: More engaged in milieu today. Attentive to ADL's with team encouragement. Continue plan of care. 06/12/21: Continue current regime. Sustenna due 06/21/21. 06/13/21 - 06/14/21 No changes Continue with current treatment plan 06/15/21 Continue current plan of care Invega Sustenna injection due 06/21/21. 06/16/21 Continue current plan of care. 06/17/21 Continue current plan of care Increase Chlorpromazine to 100 mg HS Discussed tapering PO Invega most likely between second and third injection of COKER. Discussed with pt treating his mood. At this time he would like more time to assess effects of therapy and COKER. 06/18/21 Continue current plan. Offer support and structure 06/19/10 Sustenna Injection 06/21. 06/20/21 No changes to the above 06/21/21 No change 06/23/21- pt without SI/HI/VH/AH, no overt delusional content reported. overly familiar with staff/asking multiple request but polite and able to be redirected. 06/26/21- Processing discussion of 06/25/21. Elopement risk Continue current plan of care. 06/29/21- Denies SE of COKER given 06/21. Continues to decline psychopharmacology intervention for mood symptoms-prefers to talk it out . Update diagnostics- EKG, CBC, CMP, TSH, Lipids, A1c, TSH, B12,Folate Pt has expressed interest in leaning to speak and write Mongolian-given resources so he may explore this interest. Support/Educate LT Plan: [facility]ra 06/30/21: continue current treatment plan. pt stable. 07/01/21: Continue current treatment plan. 07/02/21: Continue current treatment plan. Review of EKG changes, [place] with [facility], Dr. Murillo-. They report this finding to be chronic, not in need of further eval or consult. 07/03- continue current treatment plan. 07/04- no medication changes 07/06/21- Continue current plan of care. LTP-[facility] transfer 07/07/21: Continue current plan of care. Assist pt at his request in addressing his financial concerns, need for PO Box assignment and issues with social security 07/08/21 Continue plan of care no change indicated at this time 07/09/21 Continue plan of care 07/10/21 Continue plan of care 07/11/21 Continue plan of care 07/11/21 Continue plan of care 07/12/21 Continue plan of care 07/14/21 Invega 6 mg po a.m. restart Thorazine IM back up if pt refuses. 07/15/21: Continue current plan. 07/16/21: Continue current plan. 07/19/21: No changes to medication plan 07/20/2021: Continue current regimen and plans 07/21/21: Invega Sustenna 234 mg IM to be given today or 07/22. Pt is aware. Continue current plan. 07/24/21: Support pt in transition to [facility] 07/26 continue current regimen and plan on transition to [facility] 07/27/21: Support of Asif in transition to [facility] 07/29/21: Support in time of transition. Continue with clear boundaries regarding unit policy. Declines assist with mood sx. Continue current plan of care. 07/30/21: Diagnostics in preparation for transfer PPD CBCD, CMP, A1C, Lipid Panel, TSH, EKG 07/31/21 Support pt in transition to [facility] 08/01/21: No change to the above plan I spent minutes with the patient and/or on the patient floor today, greater than?50% of which was spent counseling/coordinating care. Patient educated on: diagnosis and medication risk/benefits Informed Consent: further education needed Reason for contiued inpatient stay Substantial Risk for: rapid decompensation
[2021-08-01 15:40] VITALS: BP 104/69; PULSE 97; TEMP 36.7
[2021-08-01] MEDS: chlorproMAZINE HCl 100 MG TABLET PO (20:48)
[2021-08-02 06:00] VITALS: BP 110/74; PULSE 97; TEMP 36.5; O2SAT 98
[2021-08-02] MEDS: Multivitamin TABLET 1 TAB PO (08:40)
[2021-08-02] MEDS: Paliperidone ER 6 MG TAB.ER.24 PO (08:40)
--- NOTE | 2021-08-02 12:30 | P.PNPSI_ITS ---
Subjective Subjective Date of Service: 08/02/21 Reason For Visit: Schizophrenia Subjective Notes: Conditional Voluntary Interim History: Asif remains unchanged. He is aware that he is going to be TF to [facility] next week and has no apparent concerns Medication Compliance: Yes Side effects from medications: No Attending Groups: Intermittent Review of Systems Acute medical concerns: No Mental Status Exam Mental Status Exam Patient Appearance: Appropriate Patient Orientation: Person, Place, Time and Situation Level of Consciousness: Alert Patient Behavior: Guarded, Talkative, Cooperative, Suspicious, Restless, Anxious, Fearful, Distractible, Good Eye Contact and Pacing Mood Description: Suspicious and Labile Affect Description: Labile Patient Cognition Impaired: No Ability to Follow Directions: Good Speech Pattern: Spontaneous Speech Memory Description: Remote Impaired and Episodic Impaired Hallucinations: Auditory Delusions: Paranoid Ideation Perceptual Disturbances: Derealization Thought Process: Illogical, Distracted and Rumination Thought Content: positive for [place] and positive for Circumstantial Depressive Symptoms: Increased Anxiety and Increased Irritability Abnormal Motor Activity Signs and Symptoms: Restlessness Judgement: Poor Diagnostics Vital Signs (24Hr): Vital Signs - 24 hr 08/01/21 15:40 08/02/21 06:00 Temperature 98.0 F 97.7 F Pulse Rate 97 97 Blood Pressure 104/69 110/74 Pulse Oximetry 98 BMI result Body Mass Index 26.6 Labs Results: 07/31/21 08:04 07/31/21 08:04 Imaging Radiology Impressions: ITS Impressions Face X-Ray 04/21/21 15:29 IMPRESSION: No fracture seen. Orbit X-Ray 04/21/21 15:29 IMPRESSION: No fracture seen. Cervical Spine CT 04/24/21 22:24 IMPRESSION: No evidence of acute intracranial abnormalities. No evidence of acute maxillofacial fractures. However, evaluation of the inferior mandibular body is limited due to motion and although no definite fractures or surrounding soft tissue thickening/hematoma are identified, clinical correlation for pain/tenderness in the inferior mandible should be obtained as this is suboptimally assessed in this study. No acute cervical fractures or malalignment. Face CT 04/24/21 22:24 IMPRESSION: No evidence of acute intracranial abnormalities. No evidence of acute maxillofacial fractures. However, evaluation of the inferior mandibular body is limited due to motion and although no definite fractures or surrounding soft tissue thickening/hematoma are identified, clinical correlation for pain/tenderness in the inferior mandible should be obtained as this is suboptimally assessed in this study. No acute cervical fractures or malalignment. Head CT 04/24/21 22:24 IMPRESSION: No evidence of acute intracranial abnormalities. No evidence of acute maxillofacial fractures. However, evaluation of the inferior mandibular body is limited due to motion and although no definite fractures or surrounding soft tissue thickening/hematoma are identified, clinical correlation for pain/tenderness in the inferior mandible should be obtained as this is suboptimally assessed in this study. No acute cervical fractures or malalignment. Toe X-Ray 06/22/21 19:00 IMPRESSION: No appreciable phalangeal fractures of the right toes. Medications Medications Current Medications Benztropine Mesylate (Benztropine Mesylate 1 Mg Tablet) 1 mg PO TID PRN PRN Reason: Extrapyramidal Effects Chlorpromazine HCl (Chlorpromazine Hcl 100 Mg Tablet) 100 mg PO BID PRN PRN Reason: psychotic agitation Last Admin: 06/29/21 21:04 Dose: 100 mg Documented by: Chlorpromazine HCl (Chlorpromazine Hcl 100 Mg Tablet) 100 mg PO BEDTIME [facility] Last Admin: 08/01/21 20:48 Dose: 100 mg Documented by: Chlorpromazine HCl (Chlorpromazine Hcl 50 Mg/2 Ml Ampul) 100 mg IM BEDTIME PRN PRN Reason: if pt refuses PO per court order Chlorpromazine HCl (Chlorpromazine Hcl 50 Mg/2 Ml Ampul) 50 mg IM DAILY PRN PRN Reason: If pt refuses po [facility]/court Ibuprofen (Ibuprofen 600 Mg Tablet) 600 mg PO Q4H PRN PRN Reason: Pain, Moderate (Pain Scale 4-6 Last Admin: 07/25/21 09:22 Dose: 600 mg Documented by: Lidocaine (Lidocaine 4 % Patch Adh..Patch) 1 patch TRANSDERMA DAILY PRN; Protocol PRN Reason: cervical pain Last Admin: 07/24/21 15:38 Dose: 1 patch Documented by: Melatonin (Melatonin 3 Mg Tablet) 3 mg PO BEDTIME PRN PRN Reason: Insomnia Multivitamins/Vitamin C (Multivitamin Tablet) 1 tab PO DAILY [facility] Last Admin: 08/02/21 08:40 Dose: 1 tab Documented by: Paliperidone (Paliperidone Er 6 Mg Tab.Er.24) 6 mg PO DAILY [facility] Last Admin: 08/02/21 08:40 Dose: 6 mg Documented by: Paliperidone Palmitate (Paliperidone Palmitate 234 Mg/1.5 Ml Syringe) 234 mg IM Q30D [facility] Last Admin: 07/21/21 14:15 Dose: 234 mg Documented by: Allergies Allergies Allergy/AdvReac Type Severity Reaction Status Date / Time haloperidol [From HALDOL] Allergy Severe DYSTONIA Verified 04/19/21 06:28 ziprasidone [From GEODON] Allergy Severe DYSTONIA Verified 04/19/21 06:28 Assessment & Plan Assessment & Plan (1) Schizoaffective disorder, bipolar type: Status: Acute Code(s): F25.0 - Schizoaffective disorder, bipolar type Plan 05/07/21 Invega 6 mg 05/08. Continue Thorazine prn. (pt required IM back up on 05/07/21) 05/08/21 Continue current plan of care. 05/09/21: Ct w plan per [facility] order 05/10/21: Ct Rx plan 05/11/21: Continue Invega titration. 05/12/21 Pt tolerating Invega. Will begin Sustenna on 05/13. 05/13/21 Sustanna given, tolerated. Support, educate, integrate into milieu for added support. 05/14/21 Tolerating Sustenna. Calmer, more focused today. Asking for help with legal issues, attempting to organize his responsibilities 05/15/21 Continue current plan. 05/16/21 Continue current plan 05/17/21 Continue current plan 05/18/21 Follow up with probation-pt agrees and signed JEANNETTE Second Sustenna injection 05/21. Tolerating with breakthrough sx with PO as well. 05/19/21 Team/Peers report evening/night agitation Depakote 500 mg ER HS 05/20/21 Continue current regime Scheduled Invega injection for 05/21 Continue to attempt alliance building, education, support 05/21/21 Continue current regimen, no changes to medication, will monitor for benefit on invega sustenna COKER. Still taking PO invega. Has not been taking PO depakote, so will not order a level. 05/22/21 Continue current regimen, pt is tolerating invega sustenna well. Not taking depakote. Appropriate on the unit. 05/23/21: No changes to above med plan. 05/24/21: No changes to above plan, continue PO invega until invega sustenna reaches steady state. Pt somewhat intrusive with high fiving staff but redirectable. 05/26/21: Continue current plan. [facility] application 05/27/21 Pt has been refusing Depakote at hs with resulting poor sleep. Will give Chlorpromazine IM if Depakote is refused. 05/28/21 Continue current plan Labs 06/01/20. 05/29/21 Continue with current plan 05/30/21 continue with current treatment plan 05/31/21 continue with current treatment plan 06/01/21 Discontinue Depakote-pt prefers Chlorpromazine at HS-50 mg as he reports it is more helpful with sleep quality assistance. 06/03/21: Education, support. [facility] application. 06/04/21: Increase Chlorpromazine to 75 mg HS to assist with mgt of lability. 06/05/21: Continue current regime 06/06 continue current medications 06/09/21: Continue current plan of care Support, Educate, Inform, encourage pt's interests. 06/11/21: More engaged in milieu today. Attentive to ADL's with team encou ragement. Continue plan of care. 06/12/21: Continue current regime. Sustenna due 06/21/21. 06/13/21 - 06/14/21 No changes Continue with current treatment plan 06/15/21 Continue current plan of care Invega Sustenna injection due 06/21/21. 06/16/21 Continue current plan of care. 06/17/21 Continue current plan of care Increase Chlorpromazine to 100 mg HS Discussed tapering PO Invega most likely between second and third injection of COKER. Discussed with pt treating his mood. At this time he would like more time to assess effects of therapy and COKER. 06/18/21 Continue current plan. Offer support and structure 06/19/10 Sustenna Injection 06/21. 06/20/21 No changes to the above 06/21/21 No change 06/23/21- pt without SI/HI/VH/AH, no overt delusional content reported. overly familiar with staff/asking multiple request but polite and able to be redirected. 06/26/21- Processing discussion of 06/25/21. Elopement risk Continue current plan of care. 06/29/21- Denies SE of COKER given 06/21. Continues to decline psychopharmacology intervention for mood symptoms-prefers to talk it out . Update diagnostics- EKG, CBC, CMP, TSH, Lipids, A1c, TSH, B12,Folate Pt has expressed interest in leaning to speak and write English-given resources so he may explore this interest. Support/Educate LT Plan: [facility] 06/30/21: continue current treatment plan. pt stable. 07/01/21: Continue current treatment plan. 07/02/21: Continue current treatment plan. Review of EKG changes, RBBB with [facility] [place] [place] [facility], Dr. Murillo-. They report this finding to be chronic, not in need of further eval or consult. 07/03- continue current treatment plan. 07/04- no medication changes 07/06/21- Continue current plan of care. [facility] transfer 07/07/21: Continue current plan of care. Assist pt at his request in addressing his financial concerns, need for PO Box assignment and issues with social security 07/08/21 Continue plan of care no change indicated at this time 07/09/21 Continue plan of care 07/10/21 Continue plan of care 07/11/21 Continue plan of care 07/11/21 Continue plan of care 07/12/21 Continue plan of care 07/14/21 Invega 6 mg po a.m. restart Thorazine IM back up if pt refuses. 07/15/21: Continue current plan. 07/16/21: Continue current plan. 07/19/21: No changes to medication plan 07/20/2021: Continue current regimen and plans 07/21/21: Invega Sustenna 234 mg IM to be given today or 07/22. Pt is aware. Continue current plan. 07/24/21: Support pt in transition to [facility] 07/26 continue current regimen and plan on transition to [facility] 07/27/21: Support of Asif in transition to [facility] 07/29/21: Support in time of transition. Continue with clear boundaries regarding unit policy. Declines assist with mood sx. Continue current plan of care. 07/30/21: Diagnostics in preparation for transfer PPD CBCD, CMP, A1C, Lipid Panel, TSH, EKG 07/31/21 Support pt in transition to [facility] 08/01/21: No change to the above plan 08/02/21: No change I spent minutes with the patient and/or on the patient floor today, greater than?50% of which was spent counseling/coordinating care. Patient educated on: diagnosis and medication risk/benefits Informed Consent: further education needed Reason for contiued inpatient stay Substantial Risk for: rapid decompensation
[2021-08-02 16:45] VITALS: BP 107/57; PULSE 82; TEMP 37.1
[2021-08-02] MEDS: chlorproMAZINE HCl 100 MG TABLET PO (21:06)
[2021-08-03 06:00] VITALS: BP 114/70; PULSE 94; RESP 18; TEMP 36.7; O2SAT 98
[2021-08-03] MEDS: Multivitamin TABLET 1 TAB PO (08:46)
[2021-08-03] MEDS: Paliperidone ER 6 MG TAB.ER.24 PO (08:46)
[2021-08-03 15:26] LABS: COVID-19 Test Negative (Negative)
--- NOTE | 2021-08-03 17:13 | P.PNPSI_ITS ---
Subjective Subjective Date of Service: 08/03/21 Reason For Visit: Schizophrenia Subjective Notes: Section 8 Healthcare Proxy: No Guardianship: No Medical Problems Affecting Mental Status: No Interim History: Asif is terminating with the team. Met with pt and his mother to discuss transition. Pt is apprehensive yet pleased to be moving to a more focused rehab level of care. Medication Compliance: Yes Side effects from medications: No Attending Groups: Yes Review of Systems Acute medical concerns: No Medical Review of Systems: unchanged Review of Systems Reports behavioral changes Psychiatric: Reports anxiety, Reports behavioral changes, Reports difficulty concentrating, Reports auditory hallucinations, Reports irritability, Reports mood swings and Reports paranoia Mental Status Exam Mental Status Exam Patient Appearance: Appropriate Patient Orientation: Person, Place, Time and Situation Level of Consciousness: Alert Patient Behavior: Talkative and Good Eye Contact Mood Description: Labile Affect Description: Labile Patient Cognition Impaired: Yes Ability to Follow Directions: Good Speech Pattern: Spontaneous Speech Memory Description: Episodic Impaired Hallucinations: Auditory Delusions: Paranoid Ideation Perceptual Disturbances: Depersonalization and Derealization Thought Process: Goal Oriented Thought Content: positive for [place]ed Depressive Symptoms: Low Self Esteem Judgement: Poor Diagnostics Vital Signs (24Hr): Vital Signs - 24 hr 08/03/21 06:00 Temperature 98.1 F Pulse Rate 94 Respiratory Rate 18 Blood Pressure 114/70 Pulse Oximetry 98 BMI result Body Mass Index 26.6 Labs Results: 07/31/21 08:04 07/31/21 08:04 Labs: Laboratory Results - last 48 hr 08/03/21 14:54 COVID-19 ([facility]) Negative COVID-19 Clin Com See Note Imaging Radiology Impressions: ITS Impressions Face X-Ray 04/21/21 15:29 IMPRESSION: No fracture seen. Orbit X-Ray 04/21/21 15:29 IMPRESSION: No fracture seen. Cervical Spine CT 04/24/21 22:24 IMPRESSION: No evidence of acute intracranial abnormalities. No evidence of acute maxillofacial fractures. However, evaluation of the inferior mandibular body is limited due to motion and although no definite fractures or surrounding soft tissue thickening/hematoma are identified, clinical correlation for pain/tenderness in the inferior mandible should be obtained as this is suboptimally assessed in this study. No acute cervical fractures or malalignment. Face CT 04/24/21 22:24 IMPRESSION: No evidence of acute intracranial abnormalities. No evidence of acute maxillofacial fractures. However, evaluation of the inferior mandibular body is limited due to motion and although no definite fractures or surrounding soft tissue thickening/hematoma are identified, clinical correlation for pain/tenderness in the inferior mandible should be obtained as this is suboptimally assessed in this study. No acute cervical fractures or malalignment. Head CT 04/24/21 22:24 IMPRESSION: No evidence of acute intracranial abnormalities. No evidence of acute maxillofacial fractures. However, evaluation of the inferior mandibular body is limited due to motion and although no definite fractures or surrounding soft tissue thickening/hematoma are identified, clinical correlation for pain/tenderness in the inferior mandible should be obtained as this is suboptimally assessed in this study. No acute cervical fractures or malalignment. Toe X-Ray 06/22/21 19:00 IMPRESSION: No appreciable phalangeal fractures of the right toes. Medications Medications Current Medications Benztropine Mesylate (Benztropine Mesylate 1 Mg Tablet) 1 mg PO TID PRN PRN Reason: Extrapyramidal Effects Chlorpromazine HCl (Chlorpromazine Hcl 100 Mg Tablet) 100 mg PO BID PRN PRN Reason: psychotic agitation Last Admin: 06/29/21 21:04 Dose: 100 mg Documented by: Chlorpromazine HCl (Chlorpromazine Hcl 100 Mg Tablet) 100 mg PO BEDTIME [facility] Last Admin: 08/02/21 21:06 Dose: 100 mg Documented by: Chlorpromazine HCl (Chlorpromazine Hcl 50 Mg/2 Ml Ampul) 100 mg IM BEDTIME PRN PRN Reason: if pt refuses PO per court order Chlorpromazine HCl (Chlorpromazine Hcl 50 Mg/2 Ml Ampul) 50 mg IM DAILY PRN PRN Reason: If pt refuses po [facility]/court Ibuprofen (Ibuprofen 600 Mg Tablet) 600 mg PO Q4H PRN PRN Reason: Pain, Moderate (Pain Scale 4-6 Last Admin: 07/25/21 09:22 Dose: 600 mg Documented by: Lidocaine (Lidocaine 4 % Patch Adh..Patch) 1 patch TRANSDERMA DAILY PRN; Protocol PRN Reason: cervical pain Last Admin: 07/24/21 15:38 Dose: 1 patch Documented by: Melatonin (Melatonin 3 Mg Tablet) 3 mg PO BEDTIME PRN PRN Reason: Insomnia Multivitamins/Vitamin C (Multivitamin Tablet) 1 tab PO DAILY [facility] Last Admin: 08/03/21 08:46 Dose: 1 tab Documented by: Paliperidone (Paliperidone Er 6 Mg Tab.Er.24) 6 mg PO DAILY [facility] Last Admin: 08/03/21 08:46 Dose: 6 mg Documented by: Paliperidone Palmitate (Paliperidone Palmitate 234 Mg/1.5 Ml Syringe) 234 mg IM Q30D [facility] Last Admin: 07/21/21 14:15 Dose: 234 mg Documented by: Allergies Allergies Allergy/AdvReac Type Severity Reaction Status Date / Time haloperidol [From HALDOL] Allergy Severe DYSTONIA Verified 04/19/21 06:28 ziprasidone [From GEODON] Allergy Severe DYSTONIA Verified 04/19/21 06:28 Assessment & Plan Assessment & Plan (1) Schizoaffective disorder, bipolar type: Status: Acute Code(s): F25.0 - Schizoaffective disorder, bipolar type Plan 05/07/21 Invega 6 mg 05/08. Continue Thorazine prn. (pt required IM back up on 05/07/21) 05/08/21 Continue current plan of care. 05/09/21: Ct w plan per [facility] order 05/10/21: Ct Rx plan 05/11/21: Continue Invega titration. 05/12/21 Pt tolerating Invega. Will begin Sustenna on 05/13. 05/13/21 Sustanna given, tolerated. Support, educate, integrate into milieu for added support. 05/14/21 Tolerating Sustenna. Calmer, more focused today. Asking for help with legal issues, attempting to organize his responsibilities 05/15/21 Continue current plan. 05/16/21 Continue current plan 05/17/21 Continue current plan 05/18/21 Follow up with probation-pt agrees and signed JEANNETTE Second Sustenna injection 05/21. Tolerating with breakthrough sx with PO as well. 05/19/21 Team/Peers report evening/night agitation Depakote 500 mg ER HS 05/20/21 Continue current regime Scheduled Invega injection for 05/21 Continue to attempt alliance building, education, support 05/21/21 Continue current regimen, no changes to medication, will monitor for benefit on invega sustenna COKER. Still taking PO invega. Has not been taking PO depakote, so will not order a level. 05/22/21 Continue current regimen, pt is tolerating invega sustenna well. Not taking depakote. Appropriate on the unit. 05/23/21: No changes to above med plan. 05/24/21: No changes to above plan, continue PO invega until invega sustenna reaches steady state. Pt somewhat intrusive with high fiving staff but redirectable. 05/26/21: Continue current plan. [facility] application 05/27/21 Pt has been refusing Depakote at hs with resulting poor sleep. Will give Chlorpromazine IM if Depakote is refused. 05/28/21 Continue current plan Labs 06/01/20. 05/29/21 Continue with current plan 05/30/21 continue with current treatment plan 05/31/21 continue with current treatment plan 06/01/21 Discontinue Depakote-pt prefers Chlorpromazine at HS-50 mg as he reports it is more helpful with sleep quality assistance. 06/03/21: Education, support. [facility] application. 06/04/21: Increase Chlorpromazine to 75 mg HS to assist with mgt of lability. 06/05/21: Continue current regime 06/06 continue current medications 06/09/21: Continue current plan of care Support, Educate, Inform, encourage pt's interests. 06/11/21: More engaged in milieu today. Attentive to ADL's with team encouragement. Continue plan of care. 06/12/21: Continue current regime. Sustenna due 06/21/21. 06/13/21 - 06/14/21 No changes Continue with current treatment plan 06/15/21 Continue current plan of care Invega Sustenna injection due 06/21/21. 06/16/21 Continue current plan of care. 06/17/21 Continue current plan of care Increase Chlorpromazine to 100 mg HS Discussed tapering PO Invega most likely between second and third injection of COKER. Discussed with pt treating his mood. At this time he would like more time to assess effects of therapy and COKER. 06/18/21 Continue current plan. Offer support and structure 06/19/10 Sustenna Injection 06/21. 06/20/21 No changes to the above 06/21/21 No change 06/23/21- pt without SI/HI/VH/AH, no overt delusional content reported. overly familiar with staff/asking multiple request but polite and able to be redir ected. 06/26/21- Processing discussion of 06/25/21. Elopement risk Continue current plan of care. 06/29/21- Denies SE of COKER given 06/21. Continues to decline psychopharmacology intervention for mood symptoms-prefers to talk it out . Update diagnostics- EKG, CBC, CMP, TSH, Lipids, A1c, TSH, B12,Folate Pt has expressed interest in leaning to speak and write Turkish-given resources so he may explore this interest. Support/Educate LT Plan: [facility] 06/30/21: continue current treatment plan. pt stable. 07/01/21: Continue current treatment plan. 07/02/21: Continue current treatment plan. Review of EKG changes, [facility]BBB with [facility], Dr. Murillo-. They report this finding to be chronic, not in need of further eval or consult. 07/03- continue current treatment plan. 07/04- no medication changes 07/06/21- Continue current plan of care. [facility] transfer 07/07/21: Continue current plan of care. Assist pt at his request in addressing his financial concerns, need for PO Box assignment and issues with social security 07/08/21 Continue plan of care no change indicated at this time 07/09/21 Continue plan of care 07/10/21 Continue plan of care 07/11/21 Continue plan of care 07/11/21 Continue plan of care 07/12/21 Continue plan of care 07/14/21 Invega 6 mg po a.m. restart Thorazine IM back up if pt refuses. 07/15/21: Continue current plan. 07/16/21: Continue current plan. 07/19/21: No changes to medication plan 07/20/2021: Continue current regimen and plans 07/21/21: Invega Sustenna 234 mg IM to be given today or 07/22. Pt is aware. Continue current plan. 07/24/21: Support pt in transition to [facility] 07/26 continue current regimen and plan on transition to [facility] 07/27/21: Support of Asif in transition to [facility] 07/29/21: Support in time of transition. Continue with clear boundaries regarding unit policy. Declines assist with mood sx. Continue current plan of care. 07/30/21: Diagnostics in preparation for transfer PPD CBCD, CMP, A1C, Lipid Panel, TSH, EKG 07/31/21 Support pt in transition to [facility] 08/01/21: No change to the above plan 08/02/21: No change 08/03/21: Transfer to [facility] 08/04/21. Continue current plan. Pt has declined other medicine interventions for mood throughout this admit, however, is now comfortable with Invega and Invega Sustenna as he has had no SE. He reports he wants to continue this plan when transferred. I spent minutes with the patient and/or on the patient floor today, greater than?50% of which was spent counseling/coordinating care. Patient educated on: therapeutic strategies Informed Consent: understands and further education needed Reason for contiued inpatient stay Substantial Risk for: harm to self, harm to others, inability to function and rapid decompensation
[2021-08-03] MEDS: chlorproMAZINE HCl 100 MG TABLET PO (22:03)
[2021-08-03 22:10] VITALS: BP 128/73; PULSE 92; TEMP 36.8
[2021-08-04 06:00] VITALS: BP 112/67; PULSE 96; TEMP 36.8; O2SAT 95
[2021-08-04] MEDS: Paliperidone ER 6 MG TAB.ER.24 PO (08:05)
[2021-08-04] MEDS: Multivitamin TABLET 1 TAB PO (08:05)
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
== END 2021-08-04 12:53 | DRG 750 ==
LOC: HO.ED 04-20 17:29 → HO.PM5 04-20 19:09
PROVIDERS: Physician Assistant; Psychiatry & Neurology Psychiatry; Registered Nurse; Admitting Provider Psychiatry & Neurology Psychiatry; Emergency Provider Emergency Medicine; Visit Provider Clinical Nurse Specialist Psychiatric/Mental Health, Adult
DX: F25.0 Schizoaffective disorder, bipolar type (principal); Z91.14 Patient's other noncompliance with medication regimen; Z20.822 Contact with and (suspected) exposure to COVID-19; Z56.0 Unemployment, unspecified; Z65.3 Problems related to other legal circumstances; Z79.1 Long term (current) use of non-steroidal anti-inflammatories (NSAID); Z91.51 Personal history of suicidal behavior; Z79.899 Other long term (current) drug therapy
CPT/HCPCS: 36415; 70140; 70200; 70450; 70486; 72020; 72125; 73660; 80048; 80053; 80061; 80076; 80307; 82607; 82746; 83036; 83735; 84439; 84443; 85025; 87635; 93005; 96372; 99285; J1200; J2060; J2426; J3230; Q0163

== ENCOUNTER 2022-05-23 11:14 | Emergency (ER) | payer MEDICAID, SELFPAY ==
--- NOTE | 2022-05-23 | ECG_ITS ---
Test Reason : MEDICAL CLEARANCE Blood Pressure : / mmHG Vent. Rate : 076 BPM Atrial Rate : 076 BPM P-R Int : 152 ms QRS Dur : 102 ms QT Int : 378 ms P-R-T Axes : 066 -40 021 degrees QTc Int : 425 ms Normal sinus rhythm Left axis deviation Incomplete right bundle branch block Minimal voltage criteria for LVH, may be normal variant ( Barney product ) Abnormal ECG When compared with ECG of 31-JUL-2021 10:12, No significant change was found Referred By: Ariadne Hwang Electronically Signed By:Jean Paul Robison
[2022-05-23 11:26] VITALS: BP 114/70; PULSE 100; RESP 18; TEMP 36.8; O2SAT 95; BMI 38.7
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
[2022-05-23 11:54] LABS: COVID-19 Test Negative (Negative); IDNOW Serial# 16C4AD1C
[2022-05-23 12:05] LABS: Basophils Percent Auto 0.2 % (0-2); Eosinophils Percent Auto 0.2 % (0-4); Hematocrit 48.3 % (42.0-52.0); Hemoglobin 15.9 g/dl (14.0-18.0); Imm Gran Abs Auto 0.08 X10*3/uL (0.00-0.03); Imm Gran Pct Auto 0.9 % (0.0-0.4); Lymphocytes Absolute Auto 1.1 X10*3/uL (1.2-4.9); Lymphocytes Percent Auto 12.7 % (20-40); MANUAL DIFF FLAG NO; Mean Corpuscular HGB Conc 32.9 g/dl (31.0-36.0); Mean Corpuscular Hemoglobin 26.3 pg (27.0-33.0); Mean Platelet Volume 9.8 fL (9.4-12.4); Monocytes Absolute Auto 0.4 X10*3/uL (0.1-1.2); Platelet Count 171 X10*3/uL (160-400); Red Blood Count 6.04 X10*6/uL (4.60-5.80); Red Cell Distribution Width 14.4 % (11.0-16.0); White Blood Count 8.6 X10*3/uL (4.8-10.8)
--- NOTE | 2022-05-23 12:10 | PC.NURSE ---
Contact made to N regarding status-Pt has not been evaluated by N and was placed on S12 by own SKEWER UP for irratic behavior.
[2022-05-23 12:37] LABS: Alanine Aminotransferase 62 U/L (0-40); Albumin Level 4.5 g/dL (3.5-5.0); Alkaline Phosphatase 61 U/L (39-117); Anion Gap 13 (12-20); Aspartate Amino Transferase 31 U/L (5-37); Bilirubin Direct 0.3 mg/dL (0.0-0.5); Bilirubin Total 0.9 mg/dL (0.0-1.0); Blood Urea Nitrogen 16 mg/dL (9-16); Calcium 9.4 mg/dL (8.4-10.2); Carbon Dioxide 23 mmol/L (22-29); Chloride 105 mmol/L (96-108); Creatinine Clr Calc Pharmacy 125.2; Estimated Glomerular Filt Rate > 60; Ethanol < 10 mg/dL; Glucose Random 96 mg/dL (60-115); Sodium 137 mmol/L (135-145); Total Protein 6.9 g/dL (6.5-8.0)
--- NOTE | 2022-05-23 16:37 | PC.NURSE ---
dean and polisaad, asked for phone number in his wallet and given to him, now on the phone
[2022-05-23 20:25] VITALS: BP 119/72; PULSE 93; RESP 18; TEMP 36.4; O2SAT 96
[2022-05-23] MEDS: QUEtiapine Fumarate 50 MG TABLET PO (22:55)
--- NOTE | 2022-05-24 05:31 | PC.NURSE ---
Patient slept though through the night, no distress observed/reported, behavior quiet most of the time and non concerning at this time, medication compliant, care team attempted to assessed the patient, disposition pending at this time, patient will be re-evaluated in the morning by the care team, VSS, urine pending, will continue to monitor.
[2022-05-24 06:20] VITALS: BP 113/73; PULSE 84; RESP 17; TEMP 36.7; O2SAT 98
--- NOTE | 2022-05-24 10:43 | MHC.CARE ---
CARE Team received a call from Phylicia Benson from [facility] who is in agreement with [facility] admission.
--- NOTE | 2022-05-24 15:04 | MHC.CARE ---
Statewide inpatient bedsearch exhausted
[2022-05-24] MEDS: Paliperidone ER 6 MG TAB.ER.24 PO (20:23)
[2022-05-24] MEDS: QUEtiapine Fumarate 50 MG TABLET PO (20:23)
[2022-05-24 20:24] VITALS: BP 122/81; PULSE 92; RESP 18; TEMP 37.2; O2SAT 98
[2022-05-25 02:43] VITALS: BP 112/70; PULSE 87; RESP 17; TEMP 36.8; O2SAT 96
--- NOTE | 2022-05-25 06:17 | PC.NURSE ---
Patient slept though through the night, no distress observed/reported, behavior non concerning at this time, medication compliant, disposition per care team is section 12 inpatient bed search, VSS, urine pending, will continue to monitor.
--- NOTE | 2022-05-25 06:18 | MHC.EDTECH ---
PATIENT REPORTED TO THIS LOGISTICS ACCOUNT MANAGER THAT HE CAN NOT USE THE BATHROOM AT THIS TIME X3 RN WAS NOTIFIED
[2022-05-25 08:43] LABS: Amphetamine Screen Urine Not Detected (Not Detect); Barbiturates, Urine Not Detected (Not Detect); Benzodiazepines Screen Urine Not Detected (Not Detect); Cannabinoid Screen Urine POSITIVE (Not Detect); Cocaine Screen Urine Not Detected (Not Detect); Fentanyl, urine Not Detected (Not Detect); Opiate Screen Urine Not Detected (Not Detect); Phencyclidine Screen Urine Not Detected (Not Detect)
--- NOTE | 2022-05-25 10:02 | PHA.MEDREC ---
Pharmacy Consult ? Medication Reconciliation Pharmacy has completed the medication reconciliation. Reviewed med rec done by nursing (Nataliia).
[2022-05-25 11:01] LABS: Appearance Urine Turbid; Color Urine Dark Yellow; Glucose Urine UA Negative (Negative); Leukocyte Esterase Urine Negative (Negative); Nitrite Urine Negative (Negative); PH 5.5 (5.0-9.0); Specific Gravity - Urine >= 1.030 (1.005-1.025); Urine Blood Negative (Negative); Urine Ketones 15 mg/dL (Negative); Urine Protein Negative (Neg-Trace)
[2022-05-25 14:00] VITALS: RESP 18
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
--- NOTE | 2022-05-25 18:07 | PC.NURSE ---
Dr. Bird at bedside.
[2022-05-25 19:55] VITALS: BP 111/73; PULSE 76; RESP 18; TEMP 36.5; O2SAT 96
[2022-05-25] MEDS: QUEtiapine Fumarate 50 MG TABLET PO (21:15)
[2022-05-25] MEDS: Paliperidone ER 6 MG TAB.ER.24 PO (21:15)
[2022-05-26 04:59] VITALS: BP 112/80; PULSE 68; RESP 16; TEMP 36.8; O2SAT 96
--- NOTE | 2022-05-26 05:28 | PC.NURSE ---
Patient slept though through the night, no distress observed/reported, behavior non concerning at this time, medication compliant, disposition per care team is section 12 inpatient bed search however there is possibility patient might get discharged today after giving his monthly IM INVEGA shot, VSS, will continue to monitor.
[2022-05-26 07:59] VITALS: BP 108/67; PULSE 76; RESP 16; TEMP 37; O2SAT 96
[2022-05-26] MEDS: Paliperidone Palmitate 234 MG/1.5 ML SYRINGE IM (09:10)
--- NOTE | 2022-05-26 09:52 | PC.NURSE ---
Blank RX pulled per verbal order from MD Bradley for MD Bird to fill out for invega RX.
--- NOTE | 2022-05-26 11:31 | MHC.CARE ---
MSU done on 05/26/22, Pt to be discharged to his mothers home tabby ACCS/[facility] worker Heidy will pick him up from [facility] today and transport him to mothers home. Heidy reports she will reach out to his current medication prescriber Dr. Davis Campbell @ [facility] for follow up appointment.
== END 2022-05-26 11:48 | disposition home or self-care (01) ==
PROVIDERS: Nurse Practitioner Family; Emergency Provider Student in an Organized Health Care Education/Training Program; PCP Internal Medicine Geriatric Medicine
DX: F25.0 Schizoaffective disorder, bipolar type (principal); F60.2 Antisocial personality disorder; R41.0 Disorientation, unspecified; Z20.822 Contact with and (suspected) exposure to COVID-19; Z79.899 Other long term (current) drug therapy; Z91.14 Patient's other noncompliance with medication regimen; Z59.00 Homelessness unspecified
CPT/HCPCS: 80048; 80076; 80307; 81003; 82077; 85025; 87635; 93005; 96372; 99285; J2426

== ENCOUNTER 2022-08-29 14:31 | Emergency (ER) | payer OTHER, MEDICAID, SELFPAY ==
[2022-08-29 15:04] VITALS: BP 121/82; BP 126/74; PULSE 107; PULSE 95; RESP 18; TEMP 36.7; O2SAT 97; O2SAT 99; BMI 30.5
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
[2022-08-29 15:46] LABS: MANUAL DIFF FLAG NO
[2022-08-29 15:48] LABS: Basophils Percent Auto 0.4 % (0-2); Eosinophils Percent Auto 0.1 % (0-4); Hematocrit 46.9 % (42.0-52.0); Hemoglobin 15.8 g/dl (14.0-18.0); Imm Gran Abs Auto 0.05 X10*3/uL (0.00-0.03); Imm Gran Pct Auto 0.6 % (0.0-0.4); Lymphocytes Absolute Auto 1.1 X10*3/uL (1.2-4.9); Lymphocytes Percent Auto 13.3 % (20-40); Mean Corpuscular HGB Conc 33.7 g/dl (31.0-36.0); Mean Corpuscular Hemoglobin 26.6 pg (27.0-33.0); Mean Corpuscular Volume 78.8 fL (80.0-98.0); Mean Platelet Volume 9.8 fL (9.4-12.4); Monocytes Absolute Auto 0.4 X10*3/uL (0.1-1.2); Monocytes Percent Auto 4.8 % (2-11); Neutrophils Absolute Auto 6.9 x10*3/uL (2.0-8.3); Neutrophils Percent Auto 80.8 % (45-73); Platelet Count 186 X10*3/uL (160-400); Red Blood Count 5.95 X10*6/uL (4.60-5.80); Red Cell Distribution Width 13.8 % (11.0-16.0); White Blood Count 8.6 X10*3/uL (4.8-10.8)
[2022-08-29 15:49] LABS: Appearance Urine Clear; Color Urine Yellow; Glucose Urine UA 250 mg/dL (Negative); Leukocyte Esterase Urine Negative (Negative); Nitrite Urine Negative (Negative); PH 5.5 (5.0-9.0); Specific Gravity - Urine 1.025 (1.005-1.025); UMIC TRIGGER UACC YES; Urine Blood Negative (Negative); Urine Ketones 80 mg/dL (Negative); Urine Protein 30 (1+) mg/dL (Neg-Trace)
--- NOTE | 2022-08-29 15:49 | PC.NURSE ---
Pt ate a sandwich and is in his room.
[2022-08-29 15:54] LABS: Bacteria Urine None Seen (None Seen); Hyaline Casts Urine 0-2 /LPF (0-2); RBC Urine 0-2 /HPF (0-2); Squamous Epithelial Cell Urine 0-2 /HPF (0-2); WBC Urine 0-5 /HPF (0-5)
[2022-08-29 15:57] LABS: Amphetamine Screen Urine Not Detected (Not Detect); Barbiturates, Urine Not Detected (Not Detect); Benzodiazepines Screen Urine Not Detected (Not Detect); Cannabinoid Screen Urine POSITIVE (Not Detect); Cocaine Screen Urine Not Detected (Not Detect); Fentanyl, urine Not Detected (Not Detect); Opiate Screen Urine Not Detected (Not Detect); Phencyclidine Screen Urine Not Detected (Not Detect)
[2022-08-29 16:00] LABS: COVID-19 Test Negative (Negative); IDNOW Serial# 08D9AD1C
[2022-08-29 16:11] LABS: Alanine Aminotransferase 26 U/L (0-40); Albumin Level 4.7 g/dL (3.5-5.0); Alkaline Phosphatase 60 U/L (39-117); Anion Gap 17 (12-20); Aspartate Amino Transferase 27 U/L (5-37); Bilirubin Total 1.3 mg/dL (0.0-1.0); Blood Urea Nitrogen 16 mg/dL (9-16); Calcium 9.5 mg/dL (8.4-10.2); Carbon Dioxide 19 mmol/L (22-29); Chloride 108 mmol/L (96-108); Creatinine Clr Calc Pharmacy 104.4; Estimated Glomerular Filt Rate > 60; Ethanol < 10 mg/dL; Glucose Random 109 mg/dL (60-115); Potassium 3.9 mmol/L (3.3-5.1); Sodium 140 mmol/L (135-145); Total Protein 7.1 g/dL (6.5-8.0)
--- NOTE | 2022-08-29 16:33 | PHA.MEDREC ---
Pharmacy Consult ? Medication Reconciliation Pharmacy has completed the medication reconciliation. obtained list from [facility]. patient said his last invega injection was on 08/22/22 and said he took his medications last night.
== END 2022-08-29 18:03 | disposition home or self-care (01) ==
PROVIDERS: Nurse Practitioner Family; Emergency Provider Emergency Medicine
DX: F25.0 Schizoaffective disorder, bipolar type (principal); Z20.822 Contact with and (suspected) exposure to COVID-19; Z20.828 Contact with and (suspected) exposure to other viral communicable diseases; Z79.899 Other long term (current) drug therapy
CPT/HCPCS: 36415; 80053; 80307; 81001; 82077; 85025; 87635; 99283; S9485

== ENCOUNTER 2022-08-30 15:18 | Inpatient (IN) | payer MEDICAID, OTHER, SELFPAY ==
--- NOTE | 2022-08-30 | ECG_ITS ---
Test Reason : MEDICAL CLEARANCE Blood Pressure : / mmHG Vent. Rate : 081 BPM Atrial Rate : 081 BPM P-R Int : 160 ms QRS Dur : 100 ms QT Int : 386 ms P-R-T Axes : 063 -35 017 degrees QTc Int : 448 ms Normal sinus rhythm Left axis deviation Moderate voltage criteria for LVH, may be normal variant ( R in aVL , Barney product ) Abnormal ECG When compared with ECG of 23-MAY-2022 12:15, No significant change was found Referred By: Amber Benavidez Electronically Signed By:Jean Paul Robison
[2022-08-30 15:25] VITALS: BP 115/80; PULSE 97; RESP 18; TEMP 36.4; O2SAT 98; BMI 28.0
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
[2022-08-30 16:07] LABS: MANUAL DIFF FLAG NO
[2022-08-30 16:09] LABS: Basophils Percent Auto 0.4 % (0-2); Eosinophils Absolute Auto 0.1 X10*3/uL (0.0-0.4); Eosinophils Percent Auto 0.8 % (0-4); Hematocrit 44.4 % (42.0-52.0); Imm Gran Abs Auto 0.04 X10*3/uL (0.00-0.03); Imm Gran Pct Auto 0.5 % (0.0-0.4); Lymphocytes Absolute Auto 1.5 X10*3/uL (1.2-4.9); Lymphocytes Percent Auto 17.2 % (20-40); Mean Corpuscular HGB Conc 33.8 g/dl (31.0-36.0); Mean Corpuscular Hemoglobin 27.3 pg (27.0-33.0); Mean Corpuscular Volume 80.7 fL (80.0-98.0); Mean Platelet Volume 10.2 fL (9.4-12.4); Monocytes Absolute Auto 0.8 X10*3/uL (0.1-1.2); Monocytes Percent Auto 9.3 % (2-11); Neutrophils Absolute Auto 6.1 x10*3/uL (2.0-8.3); Neutrophils Percent Auto 71.8 % (45-73); Platelet Count 186 X10*3/uL (160-400); Red Cell Distribution Width 13.7 % (11.0-16.0); White Blood Count 8.5 X10*3/uL (4.8-10.8)
[2022-08-30 16:23] LABS: COVID-19 Test Negative (Negative); IDNOW Serial# 6674DD1D
[2022-08-30 16:30] LABS: Alanine Aminotransferase 25 U/L (0-40); Albumin Level 4.7 g/dL (3.5-5.0); Alkaline Phosphatase 63 U/L (39-117); Anion Gap 16 (12-20); Aspartate Amino Transferase 39 U/L (5-37); Bilirubin Total 1.7 mg/dL (0.0-1.0); Blood Urea Nitrogen 18 mg/dL (9-16); Calcium 9.5 mg/dL (8.4-10.2); Carbon Dioxide 20 mmol/L (22-29); Chloride 104 mmol/L (96-108); Creatinine Clr Calc Pharmacy 94.1; Estimated Glomerular Filt Rate > 60; Glucose Random 106 mg/dL (60-115); Potassium 4.4 mmol/L (3.3-5.1); Sodium 136 mmol/L (135-145); Total Protein 6.9 g/dL (6.5-8.0)
[2022-08-30 16:31] LABS: Amphetamine Screen Urine Not Detected (Not Detect); Barbiturates, Urine Not Detected (Not Detect); Benzodiazepines Screen Urine Not Detected (Not Detect); Cannabinoid Screen Urine POSITIVE (Not Detect); Cocaine Screen Urine Not Detected (Not Detect); Fentanyl, urine Not Detected (Not Detect); Opiate Screen Urine Not Detected (Not Detect); Phencyclidine Screen Urine Not Detected (Not Detect)
--- NOTE | 2022-08-30 16:52 | PC.NURSE ---
care team at the bedside
--- NOTE | 2022-08-30 18:36 | PC.NURSE ---
patient resting comfortably on bed. denies pain at this time. calm and cooperative with staff. able to make needs known. will CTM
[2022-08-31 03:15] VITALS: BP 105/68; PULSE 98; RESP 18; TEMP 37.2; O2SAT 96
[2022-08-31] MEDS: hydrOXYzine HCL 25 MG TABLET PO (03:26)
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
[2022-08-31] MEDS: lamoTRIgine 25 MG TABLET 50 MG PO (09:08)
[2022-08-31 09:11] VITALS: BP 121/65; PULSE 85; RESP 16; TEMP 36.7; O2SAT 96
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
[2022-08-31 18:00] VITALS: BP 112/71; PULSE 84; RESP 18; TEMP 36.8; O2SAT 97
[2022-08-31] MEDS: Paliperidone ER 3 MG TAB.ER.24 PO (18:04)
[2022-08-31] MEDS: Paliperidone ER 6 MG TAB.ER.24 PO (20:12)
[2022-08-31] MEDS: traZODone HCL 50 MG TABLET PO (20:12)
[2022-08-31] MEDS: QUEtiapine Fumarate 50 MG TABLET PO (20:12)
[2022-09-01 06:00] VITALS: BP 131/71; PULSE 76; RESP 16; TEMP 36.8; O2SAT 95
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
[2022-09-01] MEDS: Paliperidone ER 3 MG TAB.ER.24 PO (08:48)
[2022-09-01 09:00] LABS: Estimated Average Glucose 100 mg/dL; Hemoglobin A1c % 5.1 %
[2022-09-01 09:27] LABS: Cholesterol 162 mg/dL; HDL Cholesterol 31 mg/dL; LDL Cholesterol Calculated 118 mg/dl; Magnesium 2.1 mg/dL (1.6-2.6); Triglycerides 65 mg/dL
[2022-09-01 09:57] LABS: Free T4 (Free Thyroxine) 1.07 ng/dL (0.71-1.85); Thyroid Stimulating Hormone 1.33 uIU/mL (0.32-4.0); Vitamin B12 726 pg/mL (200-900)
--- NOTE | 2022-09-01 13:32 | PC.NURSE ---
Pt reports he is not a current smoker.
[2022-09-01 16:49] VITALS: BP 119/71; PULSE 80; RESP 18; TEMP 36.9; O2SAT 99
[2022-09-01] MEDS: Paliperidone ER 6 MG TAB.ER.24 PO (19:58)
[2022-09-01] MEDS: traZODone HCL 50 MG TABLET PO (19:58)
[2022-09-01] MEDS: QUEtiapine Fumarate 50 MG TABLET PO (19:58)
[2022-09-02 07:00] VITALS: BMI 30.7
[2022-09-02] MEDS: Paliperidone ER 3 MG TAB.ER.24 PO (08:46)
[2022-09-02 08:48] VITALS: BP 105/65; PULSE 82; RESP 14; TEMP 36.2; O2SAT 98
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
[2022-09-02 15:48] VITALS: BP 112/65; PULSE 86
[2022-09-02] MEDS: Paliperidone ER 6 MG TAB.ER.24 PO (19:31)
[2022-09-02] MEDS: QUEtiapine Fumarate 50 MG TABLET PO (19:31)
[2022-09-02] MEDS: traZODone HCL 50 MG TABLET PO (19:31)
[2022-09-03 06:00] VITALS: BP 105/53; PULSE 68; RESP 16; TEMP 36.5; O2SAT 98
[2022-09-03] MEDS: Paliperidone ER 3 MG TAB.ER.24 PO (08:16)
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
[2022-09-03 16:30] VITALS: BP 121/71; PULSE 63; RESP 18; TEMP 36.4; O2SAT 99
[2022-09-03] MEDS: cloNIDine HCL 0.1 MG TABLET PO (19:56)
[2022-09-03] MEDS: QUEtiapine Fumarate 50 MG TABLET PO (19:56)
[2022-09-03] MEDS: Paliperidone ER 6 MG TAB.ER.24 PO (19:56)
[2022-09-03] MEDS: traZODone HCL 50 MG TABLET PO (19:57)
[2022-09-04] MEDS: Paliperidone ER 3 MG TAB.ER.24 PO (08:06)
[2022-09-04 08:11] VITALS: BP 93/57; PULSE 77; RESP 16; TEMP 36.8; O2SAT 98
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
[2022-09-04 18:00] VITALS: BP 119/68; PULSE 71; RESP 16; TEMP 36.7; O2SAT 98
[2022-09-04] MEDS: cloNIDine HCL 0.1 MG TABLET PO (19:51)
[2022-09-04] MEDS: Paliperidone ER 6 MG TAB.ER.24 PO (19:51)
[2022-09-04] MEDS: traZODone HCL 50 MG TABLET PO (19:51)
[2022-09-04] MEDS: QUEtiapine Fumarate 50 MG TABLET PO (19:51)
[2022-09-05] MEDS: Paliperidone ER 3 MG TAB.ER.24 PO (08:22)
[2022-09-05 08:23] VITALS: BP 99/59; PULSE 62; RESP 16; TEMP 36.8; O2SAT 100
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
[2022-09-05 16:56] VITALS: BP 109/70; PULSE 65; RESP 18; TEMP 37.1; O2SAT 98
[2022-09-05] MEDS: cloNIDine HCL 0.1 MG TABLET PO (20:23)
[2022-09-05] MEDS: QUEtiapine Fumarate 50 MG TABLET PO (20:24)
[2022-09-05] MEDS: Paliperidone ER 6 MG TAB.ER.24 PO (20:24)
[2022-09-05] MEDS: traZODone HCL 50 MG TABLET PO (20:24)
[2022-09-06 06:00] VITALS: BP 116/61; PULSE 93; RESP 16; O2SAT 98
[2022-09-06] MEDS: Paliperidone ER 3 MG TAB.ER.24 PO (07:59)
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
== END 2022-09-06 11:59 | disposition home or self-care (01) | DRG 750 ==
LOC: HO.ED 18:03 → HO.PM5 08-31 02:59
PROVIDERS: Physician Assistant; Admitting Provider Clinical Nurse Specialist Psychiatric/Mental Health, Adult; Emergency Provider Emergency Medicine; Visit Provider Psychiatry & Neurology Psychiatry
DX: F25.0 Schizoaffective disorder, bipolar type (principal); F60.2 Antisocial personality disorder; Z20.822 Contact with and (suspected) exposure to COVID-19; Z88.8 Allergy status to other drugs, medicaments and biological substances; Z79.899 Other long term (current) drug therapy
CPT/HCPCS: 36415; 80053; 80061; 80307; 82607; 82746; 83036; 83735; 84439; 84443; 85025; 87635; 93005; 99285; S9485

== ENCOUNTER 2023-02-05 22:19 | Emergency (ER) | payer MEDICAID, SELFPAY ==
[2023-02-05 22:45] VITALS: BP 102/71; BP 142/90; PULSE 71; PULSE 89; RESP 16; TEMP 36.8; O2SAT 95; O2SAT 97; BMI 29.3
--- OUTSIDE RECORDS SUMMARY | 2023-02-06 01:04 | XMS_ITS | Continuity of Care Document ---
Author Name Unknown Organization [facility] Address [address] [place] [address]- Care Team Providers Care Head Shipper Name Role Phone Not on Staff, PCP Primary Care Physician Unavail able Encounter [facility] Date(s): 08/07/22 - 09/06/22 [facility] [address] [place], [place] [address] Attending Physician: Leonardo Gasca Admitting Physician: Leonardo Gasca Referring Physician: Leonardo Gasca Allergies, Adverse Reactions, Alerts Substance Reaction Severity Status Haldol Active Geodon Active Immunizations Given and Recorded Vaccine Date Status Refusal Reason influenza virus vaccine, inactivated 1 03/24/11 Gi ricky influenza virus vaccine, inactivated 2 08/03/10 Gi ricky tetanus/diphtheria/pertussis, acel(Tdap) 09/21/08 Given 1Admin Note: VIS GIVEN VIS DATE 12/22/10 2Admin Note: VIS GIVEN-DATED 01/06/10 Medications benztropine 0.5 mg oral tablet 1 tablet = 0.5 mg, By Mouth, 2 times a day, # 60 tablet, 1 Refills, Maintenance, 12/12/13 11:41:20,Tablet, 1 tablet By Mouth 2 times a day,x30 days Start Date: 12/12/13 Stop Date: 02/10/14 Status: Ordered olanzapine 15 mg oral tablet 1 tablet = 15 mg, By Mouth, Daily at bedtime, # 30 tablet, 1 Refills, Maintenance, 12/11/13 21:02:28, Tablet, 1 tablet By Mouth Daily at bedtime,x30 days Start Date: 12/11/13 Stop Date: 02/09/14 Status: Ordered olanzapine 5 mg oral tablet 1 tablet = 5 mg, By Mouth, Daily in AM, # 30 tablet, 1 Refills, Maintenance, 12/11/13 21:02:22, Tablet, 1 tablet By Mouth Daily in AM,x30 days Start Date: 12/11/13 Stop Date: 02/09/14 Status: Ordered oxcarbazepine 300 mg oral tablet 1 tablet = 300 mg, By Mouth, Daily in AM, # 30 tablet, 1 Refills, Maintenance, 12/11/13 21:02:12, Tablet, 1 tablet By Mouth Daily in AM,x30 days Start Date: 12/11/13 Stop Date: 02/09/14 Status: Ordered oxcarbazepine 600 mg oral tablet 1 tablet = 600 mg, By Mouth, Daily at bedtime, # 30 tablet, 1 Refills, Maintenance, 12/11/13 20:59:32, Tablet, 1 tablet By Mouth Daily at bedtime,x30 days Start Date: 12/11/13 Stop Date: 02/09/14 Status: Ordered trazodone 100 mg oral tablet 1 tablet = 100 mg, By Mouth, Daily at bedtime, # 30 tablet, 1 Refills, Maintenance, 12/12/13 11:40:31, Tablet, 1 tablet By Mouth Daily at bedtime,x30 days Start Date: 12/12/13 Stop Date: 02/10/14 Status: Ordered Problem List Condition Confirmation Course Effective Dates Status H ealth Status Informant Asthma Confirmed Active Bipolar Confirmed Active Cannabis Abuse Confirmed 12/07/10 Active Depression Confirmed Active Transaminase or LDH elevation Confirmed Active Nicotine abuse Confirmed Active Other and Unspecified Bipolar Disorders Confirmed 12/11/10 Active Schizoaffective Disorder, Chronic with Acute Exacerbation Confirmed 12/07/10 Active Patient Care team information Care Team Personnel Name: Mario Cerda RN Position: [facility] RN Member Role: Primary Care Nurse Name: Not on Staff, PCP Position: [facility] Physician (General Medicine) Member Role: PCP Care Team Related Persons Name: COLLINSANNETTE ANGLIN Address: home [address] [place] [address] Name: HARVINDER BUCHANAN Address: [address] [place] [address] Name: LENIN NAYLOR Address: home [address] [place] [address] Name: YOSELIN, ANNA
--- OUTSIDE RECORDS SUMMARY | 2023-02-06 01:04 | XMS_ITS | Continuity of Care Document ---
Author Name Unknown Organization [facility] ter Address [address] [place] [id number]- Care Team Providers Care Intranet Developer Name Role Phone Not on Staff, PCP Primary Care Physician Unavail able Encounter [facility] Date(s): 01/09/23 - 01/09/[address] [address]- Discharge Disposition: A-D/C Walkout Attending Physician: Not on Staff, Attending MD Admitting Physician: Not on Staff, Admitting MD Referring Physician: Not on Staff, Referring MD Allergies, Adverse Reactions, Alerts Substance Reaction Severity Status Haldol Active Geodon Active ZyPREXA Active Immunizations Given and Recorded Vaccine Date [...] Chronic with Acute Exacerbation Confirmed 12/07/10 Active Vital Signs Most recent to oldest [Reference Range]: 1 Height 168.5 cm (01/09/23 4:10 PM) Oxygen Saturation [94-100 %] 98 % (01/09/23 4:10 PM) Pulse Rate [55-90 bpm] 111 bpm *H* (01/09/23 4:10 PM) Blood Pressure [90-138/55-84 mm Hg] 128/ 84mm Hg (01/09/23 4:10 PM) Respiratory Rate [16-30 br/min] 20 br/mi n (01/09/23 4:10 PM) Temperature [96.8-100.4 DegF] 99.0 DegF (01/09/23 4:10 PM) Mode of Delivery (Oxygen) Room air (8/13/23 4:10 PM) Blood pressure sites Arm, left (01/09/23 4:10 PM) Temperature Route Oral (01/09/23 4:10 PM) Dry Weight 91.4 kg (01/09/23 4:10 PM) Dry Weight Obtained Via Standing scale (01/09/23 4:10 PM) Patient Care team information Care Team Personnel Name: Mario Cerda RN Position: S RN Member Role: Primary Care Nurse Name: Not on Staff, PCP Position: [facility] Physician (General Medicine) Member Role: PCP Care Team Related Persons Name: ANNETTE COLLINS Address: home [address] [place], [place] Name: HARVINDER BUCHANAN Address: home [address] [place], [place] Name: LENIN NAYLOR Address: home [address] [place], [place] Name: ANNA WYATT
--- NOTE | 2023-02-06 01:19 | ED_ITS ---
HPI - Wound/Laceration General Chief Complaint: Wound/Laceration Stated Complaint: CUT L INDEX FINGER WITH KNIFE Time Seen by Provider: 02/06/23 01:01 Source: patient and RN notes reviewed Mode of arrival: ambulatory Limitations: no limitations History of Present Illness HPI narrative: This is a 37-year-old male presenting to the emergency room with complaints left index finger laceration since 2 hours ago. Patient states that while he was cutting cheese he accidentally lacerated the tip of his finger. Patient applied pressure dressing on wound and bleeding had stopped. Patient is unsure when his last tetanus was. He is ambidextrous. Denies numbness or tingling. No other complaints or concerns at this time. Onset (ago): hour(s) Place: home Patient tetanus UTD: No Context: accidental Associated symptoms: pain Treatments prior to arrival: tourniquet Related Data Home Medications Medication Instructions Recorded Confirmed paliperidone 6 mg tablet,extended 6 mg PO BEDTIME 08/29/22 08/30/22 release 24 hr (Invega) quetiapine 50 mg tablet 50 mg PO BEDTIME 08/29/22 08/30/22 Previous Rx's Medication Instructions Recorded paliperidone palmitate 234 mg/1.5 234 mg (1.5 mL) IM Q30D 30 days 05/26/22 mL intramuscular syringe (Invega #1.5 mL Sustenna) clonidine HCl 0.1 mg tablet 0.1 mg PO BEDTIME 30 days #30 tabs 09/06/22 paliperidone 3 mg tablet,extended 3 mg PO DAILY 30 days #30 tabs 09/06/22 release 24 hr trazodone 50 mg tablet 50 mg PO BEDTIME PRN insomnia 30 09/06/22 days #30 tabs cephalexin 250 mg capsule 250 mg PO QID 7 days #28 caps 02/06/23 hydrocodone 5 mg-acetaminophen 325 1 tab PO Q8H PRN severe pain 02/06/23 mg tablet (scale score 7-10) #7 tabs ibuprofen 600 mg tablet 600 mg PO Q6H PRN pain #30 tabs 02/06/23 Allergies Allergy/AdvReac Type Severity Reaction Status Date / Time haloperidol [From HALDOL] Allergy Severe DYSTONIA Verified 08/30/22 16:27 ziprasidone [From GEODON] Allergy Severe DYSTONIA Verified 08/30/22 16:27 Review of Systems Review of Systems: Yes all other systems are reviewed and are negative [facility] Past Medical History Medical History Antisocial personality disorder Asthma Bipolar 1 disorder, depressed Depression Psychosis Schizoaffective disorder Social History Social History Household Members: Other Household Members Other:: correction Housing: Other Housing Other:: correction Unable to assess alcohol history related to: Unknown Alcohol intake: unknown Patient Tobacco Use Status: Tobacco use Unknown Substance Use Type: Marijuana Advance Directives: No Advance Directives Information Provided: No service: No Sexual orientation: Straight/Heterosexual Physical Exam Vital Signs: Vital Signs: Last Vital Signs Temp 98.3 F 02/05/23 22:45 Pulse 71 02/05/23 22:45 Resp 16 02/05/23 22:45 BP 102/71 02/05/23 22:45 Pulse Ox 97 02/05/23 22:45 O2 Del Method Room Air 02/05/23 22:45 BMI result Body Mass Index 29.3 Const: Other: General: Awake, alert, and oriented X3. No acute distress. HEENT: Normal inspection CVS: Normal heart rate and rhythm. Pulses normal. Respiratory: No respiratory distress Skin: Left 2nd digit lateral edge with 2 cm by 1 cm avulsion noted with active bleeding active bleeding. Full range of motion of the digit without difficulty Neuro: Oriented X 3. No motor deficit. No sensory deficit. Medications Administered Discontinued Medications Generic Name Dose Route Start Last Admin Trade Name Freq PRN Reason Stop Dose Admin Hydrocodone Bitart/Acetaminophen 1 tab 02/06/23 01:50 02/06/23 02:02 Hydrocodone Bit/Acetam 5/325 Tablet PO 02/06/23 01:51 1 tab ONCE ONE Administration Diphtheria/Tetanus/Acell Pertussis 0.5 ml 02/06/23 01:20 02/06/23 02:03 Diphth,Pertus(Acell),Tet Adult 0.5 Ml Syringe IM 02/06/23 01:21 0.5 ml .ONCE ONE Administration Tranexamic Acid 500 mg 02/06/23 01:53 02/06/23 02:03 Tranexamic Acid 1,000 Mg/10 Ml Vial IRRIGATION 02/06/23 01:54 500 mg ONCE ONE Administration Medical Decision Making Medical Decision Making [facility] Narrative: 37-year-old male presenting to the emergency department with complaints of left 2nd digit avulsion laceration. His tetanus is not up-to-date, was updated in department. The wound is actively bleeding. Digital block performed by attending physician Dr. Lopez, see procedure note for further details. Surgicel was applied, bleeding stopped. Patient medicated with Percocet given severe pain. Laceration is unable to be sutured given avulsion type laceration. After 15-20 minutes with Surgicel applied, coagulation achieved. Wound dressed with nonstick dressing, wrapped gauze and Cirilo wrap. Discharge patient on a prescription for Keflex, Percocet for severe pain and ibuprofen. Patient given paper prescription due to the prescription log being down. Patient advised to change dressings once a day, and to not pick at the wound. Advised return or follow-up with primary care physician in 1 week to ensure that wound is well healed and have Surgicel removed. Patient understands and agrees with plan. Patient stable for discharge Differential Diagnosis Differential Diagnoses: The differential diagnosis associated with the presentation includes Avulsion laceration abrasion, foreign body Procedures Nerve Block Nerve Block 1: Time out performed: Yes Local Anesthetic: lidocaine 1% Amount of anesthesia used (mL): 5 Side: left Nerve Blocks: digital Procedure Successful: Yes Patient Tolerated Procedure: well and no complications Complications: none Discharge Plan Discharge Clinical Impression: Avulsion of finger tip Qualifiers: Encounter type: initial encounter Qualified Code(s): S61.209A - Unspecified open wound of unspecified finger without damage to nail, initial encounter Patient Disposition: Home, Self-Care Instructions: Finger Laceration (ED) Additional Instructions: Please take prescribed medication as directed. Take entire course of antibiotics even if you are feeling better. Take ibuprofen as needed for moderate pain. You may remove the Cirilo wrap and gauze wrap. Do not remove 1st layer of gauze until 1 week from now. For severe pain, take Percocet, please be aware that this can cause drowsiness, do not drink alcohol or drive while taking this medication. Please return in 1 week to ensure good wound healing and to have dressing removed. You may also follow-up with your primary care physician. If any new or worsening symptoms occur, including but not limited to worsening pain, bleeding through gauze, return for re-evaluation. Prescriptions: New hydrocodone-acetaminophen 5-325 mg tablet 1 tab PO Q8H PRN (Reason: severe pain (scale score 7-10)) Qty: 7 0RF Rx Instructions: Partial Fill upon patient request. cephalexin 250 mg capsule 250 mg PO QID 7 Days Qty: 28 0RF ibuprofen 600 mg tablet 600 mg PO Q6H PRN (Reason: pain) Qty: 30 0RF No Action Invega Sustenna 234 mg/1.5 mL Syringe 234 mg IM Q30D 30 Days Qty: 1.5 0RF clonidine HCl 0.1 mg Tablet 0.1 mg PO BEDTIME 30 Days Qty: 30 0RF Protocol: Hold for SBP< HOLD for SBP < : 90 trazodone 50 mg Tablet 50 mg PO BEDTIME PRN (Reason: insomnia) 30 Days Qty: 30 0RF paliperidone 3 mg Tablet Extended Release 24 Hr 3 mg PO DAILY 30 Days Qty: 30 0RF quetiapine 50 mg tablet 50 mg PO BEDTIME paliperidone [Invega] 6 mg tablet extended release 24 hr 6 mg PO BEDTIME
[2023-02-06] MEDS: HYDROcodone Bit/Acetam 5/325 TABLET 1 TAB PO (02:02)
[2023-02-06] MEDS: Tranexamic Acid 1,000 MG/10 ML VIAL 500 MG IRRIGATION (02:03)
[2023-02-06] MEDS: Diphth,Pertus(ACell),Tet Adult 0.5 ML SYRINGE IM (02:03)
[2023-02-06 03:42] VITALS: BP 124/68; PULSE 68; RESP 14; O2SAT 98
== END 2023-02-06 03:50 | disposition home or self-care (01) ==
PROVIDERS: Emergency Provider Emergency Medicine Emergency Medical Services; PCP Internal Medicine Geriatric Medicine
DX: S61.211A Laceration without foreign body of left index finger without damage to nail, initial encounter (principal); S60.411A Abrasion of left index finger, initial encounter; W26.0XXA Contact with knife, initial encounter; Y93.9 Activity, unspecified; Y92.9 Unspecified place or not applicable; Y99.9 Unspecified external cause status; Z79.899 Other long term (current) drug therapy; Z23 Encounter for immunization
CPT/HCPCS: 90471; 90715; 99284

== ENCOUNTER 2023-02-12 10:16 | Emergency (ER) | payer MEDICAID, SELFPAY ==
--- NOTE | ~2023-02-12 | XR_ITS ---
EXAMINATION: XR FINGER, LEFT CLINICAL INFORMATION: The second digit laceration one week ago with worsening pain assess for osteomyelitis COMPARISON: None available. TECHNIQUE: Three views of the left second digit. FINDINGS: There is soft tissue deformity and overlying bandage material in the region of the distal second digit. Underlying bony structures appear to be intact with no radiopaque foreign body or soft tissue gas. No bony destructive lesions or periosteal reaction. XR/XR finger LT min 2V IMPRESSION: Soft tissue injury to the distal second digit. No acute underlying bony abnormality. No radiopaque foreign body or soft tissue gas.
[2023-02-12 10:44] VITALS: BP 97/56; PULSE 60; RESP 18; TEMP 36.9; O2SAT 99; BMI 31.0
--- NOTE | 2023-02-12 11:16 | ED_ITS ---
HPI - Wound/Laceration General Chief Complaint: Wound/Laceration Stated Complaint: wound check Time Seen by Provider: 02/12/23 10:47 Source: patient Mode of arrival: ambulatory Limitations: no limitations History of Present Illness HPI narrative: patient is a 37-year-old male who presents emergency department for wound evaluation. He was seen in the emergency department on 02/06/2023 for an avulsion injury to the distal tip of the left 2nd digit. This required digital nerve block and bleeding cessation with application of Surgicel. At the time of this examination the Surgicel is still in place. He reports continued pain to the digit. He has been taking prophylactic cephalexin as prescribed. Denies fevers, chills, numbness or tingling of the extremity. Related Data Home Medications Medication Instructions Recorded Confirmed paliperidone 6 mg tablet,extended 6 mg PO BEDTIME 08/29/22 08/30/22 release 24 hr (Invega) quetiapine 50 mg tablet 50 mg PO BEDTIME 08/29/22 08/30/22 Previous Rx's Medication Instructions Recorded paliperidone palmitate 234 mg/1.5 234 mg (1.5 mL) IM Q30D 30 days 05/26/22 mL intramuscular syringe (Invega #1.5 mL Sustenna) clonidine HCl 0.1 mg tablet 0.1 mg PO BEDTIME 30 days #30 tabs 09/06/22 paliperidone 3 mg tablet,extended 3 mg PO DAILY 30 days #30 tabs 09/06/22 release 24 hr trazodone 50 mg tablet 50 mg PO BEDTIME PRN insomnia 30 09/06/22 days #30 tabs cephalexin 250 mg capsule 250 mg PO QID 7 days #28 caps 02/06/23 hydrocodone 5 mg-acetaminophen 325 1 tab PO Q8H PRN severe pain 02/06/23 mg tablet (scale score 7-10) #7 tabs ibuprofen 600 mg tablet 600 mg PO Q6H PRN pain #30 tabs 02/06/23 amoxicillin 875 mg-potassium 1 tab PO Q12H #14 tabs 02/12/23 clavulanate 125 mg tablet oxycodone 5 mg tablet 5 mg PO Q6H PRN pain #7 tabs 02/12/23 Allergies Allergy/AdvReac Type Severity Reaction Status Date / Time haloperidol [From HALDOL] Allergy Severe DYSTONIA Verified 08/30/22 16:27 ziprasidone [From GEODON] Allergy Severe DYSTONIA Verified 08/30/22 16:27 Review of Systems 2 Review of Systems: Yes all other systems are reviewed and are negative [facility] Past Medical History Attestation statement: The following information was validated with the patient. Source: old records reviewed Medical History Antisocial personality disorder Depression Schizoaffective disorder Bipolar 1 disorder, depressed Psychosis Asthma Social History Social History Household Members: Other Household Members Other:: assisted Housing: Other Housing Other:: assisted Unable to assess alcohol history related to: Unknown Alcohol intake: unknown Patient Tobacco Use Status: Tobacco use Unknown Substance Use Type: Marijuana Advance Directives: No service: No Sexual orientation: Straight/Heterosexual Physical Exam 2 Vital Signs: Vital Signs: Last Vital Signs Temp 98.4 F 02/12/23 10:44 Pulse 71 02/12/23 15:47 Resp 20 02/12/23 15:47 BP 107/65 02/12/23 15:47 Pulse Ox 97 02/12/23 15:47 O2 Del Method Room Air 02/12/23 15:47 BMI result Body Mass Index 31.0 Appearance: Alert.?Oriented to person, place and time. No acute distress.?Normal affect. Neck: Normal inspection.? Neck supple.?? CVS: Heart sounds normal. Normal heart rate and rhythm.? Pulses normal.?? Respiratory: No respiratory distress.? Lung sounds clear to auscultation bilaterally?? Skin: Skin warm and dry.? Normal skin color.? ? Extremities: No lower extremity edema.? Neuro: Moves all extremities spontaneously. Sensation intact bilaterally. . Ambulates with normal steady gait. Medications Administered Discontinued Medications Generic Name Dose Route Start Last Admin Trade Name Freq PRN Reason Stop Dose Admin Ketorolac Tromethamine 30 mg 02/12/23 13:48 02/12/23 14:02 Ketorolac Tromethamine 30 Mg/Ml Vial IM 02/12/23 13:49 30 mg ONCE ONE Administration Medical Decision Making Medical Decision Making MDM Narrative: digit was soaked in normal saline and Surgicel was able to be removed. Upon removal there has yet to be any scab formation or new skin growth. there does not appear to be any pus-like discharge at this time. Does have localized swelling and pain with mild decreased AROM with flexion to the distal tip. Does not appear consistent with a septic joint. Obtained XR imaging to evaluate for any osseous abnormality, Which reveals soft tissue injury and no acute underlying bony abnormality or soft tissue gas. He has completed course of treatment with cephalexin, persistent pain and mild erythema will provide additional coverage with Augmentin in referred to Wound care Center for further management and healing. Advised he may also follow up with his primary care provider. He continues to have significant pain that is alleviated with the hydrocodone, advised patient will provide an additional short course for management, MassPat reviewed, no conflicts Differential Diagnosis Differential Diagnoses: The differential diagnosis associated with the presentation includes ( as noted above) Independent Interpretation I performed an independent interpretation of an: Plain X-Ray ( have personally interpreted XR imaging of the digit and agree with radiologist impression.) Radiology Impression Discussion of test interpretation with radiology: I have reviewed the radiologist's reading. Radiologist Impression: XR/XR finger LT min 2V IMPRESSION: Soft tissue injury to the distal second digit. No acute underlying bony abnormality. No radiopaque foreign body or soft tissue gas. External Record Review External record reviewed: Other (MassPat) Prescription Management I considered prescription management with: Pain Medication and Antibiotic Discharge Plan Discharge Clinical Impression: Avulsion of skin Patient Disposition: Home, Self-Care Additional Instructions: I have provided 2 with contact information for the Wound Care [facility], please calls the office thing Tuesday to arrange for a follow-up visit to assure proper healing of the wound. You may also follow-up with your primary care provider. Have sent a an additional course of antibiotic to your pharmacy, please complete this entire course. I have also sent an additional Short regimen of pain medication for you. If this is an opiate medication and it may make you drowsy. It may also be addictive. You should not drive, drink alcohol, or work while taking this medication. Prescriptions: New amoxicillin-pot clavulanate 875-125 mg tablet 1 tab PO Q12H Qty: 14 0RF oxycodone 5 mg tablet 5 mg PO Q6H PRN (Reason: pain) Qty: 7 0RF Rx Instructions: Partial Fill upon patient request. No Action Invega Sustenna 234 mg/1.5 mL Syringe 234 mg IM Q30D 30 Days Qty: 1.5 0RF clonidine HCl 0.1 mg Tablet 0.1 mg PO BEDTIME 30 Days Qty: 30 0RF Protocol: Hold for SBP< HOLD for SBP < : 90 trazodone 50 mg Tablet 50 mg PO BEDTIME PRN (Reason: insomnia) 30 Days Qty: 30 0RF paliperidone 3 mg Tablet Extended Release 24 Hr 3 mg PO DAILY 30 Days Qty: 30 0RF hydrocodone-acetaminophen 5-325 mg tablet 1 tab PO Q8H PRN (Reason: severe pain (scale score 7-10)) Qty: 7 0RF Rx Instructions: Partial Fill upon patient request. cephalexin 250 mg capsule 250 mg PO QID 7 Days Qty: 28 0RF ibuprofen 600 mg tablet 600 mg PO Q6H PRN (Reason: pain) Qty: 30 0RF quetiapine 50 mg tablet 50 mg PO BEDTIME paliperidone [Invega] 6 mg tablet extended release 24 hr 6 mg PO BEDTIME [place] [facility] [place] Group]
[2023-02-12] MEDS: Ketorolac Tromethamine 30 MG/ML VIAL IM (14:02)
[2023-02-12 15:47] VITALS: BP 107/65; PULSE 71; RESP 20; O2SAT 97
== END 2023-02-12 16:14 | disposition home or self-care (01) ==
PROVIDERS: Emergency Provider Student in an Organized Health Care Education/Training Program; PCP Internal Medicine Geriatric Medicine
DX: S61.201A Unspecified open wound of left index finger without damage to nail, initial encounter (principal); X58.XXXA Exposure to other specified factors, initial encounter; Y93.9 Activity, unspecified; Y92.9 Unspecified place or not applicable; Y99.9 Unspecified external cause status
CPT/HCPCS: 73140; 96372; 99283; 99284; J1885

== ENCOUNTER 2023-02-16 14:00 | Outpatient (RCR) | payer MEDICAID, SELFPAY | END 2023-03-15 10:17 | disposition home or self-care (01) | LOC: HO.WCC 14:00 | PROVIDERS: PCP Internal Medicine Geriatric Medicine; Visit Provider Physician Assistant | DX: S61.311D Laceration without foreign body of left index finger with damage to nail, subsequent encounter (principal); F17.210 Nicotine dependence, cigarettes, uncomplicated | CPT/HCPCS: 97597; 99212; 99213 ==

== ENCOUNTER 2023-02-23 09:43 | Outpatient (AMB) | payer MEDICAID, SELFPAY ==
--- NOTE | 2023-02-23 09:53 | A.OFFVIS_ITS ---
Intake Vital Signs 02/23/23 10:01 Height 5 ft 9 in Weight 210 lb BMI 31.0 Intake Visit Reasons: [employer]- Medial Lac Left Index finger Intake Note: Asif a 37 year old right hand dominant male who presents today for an ER follow up of left index finger laceration, DOI 02/06/23. Patient reports he was cutting cheese when he accidentally cut his finger, presented to [facility] ED that same day and was referred to orthopedics. Currently has numbness at the DIP, denies pain. He completed antibiotics that was prescribed at ED. Allergies haloperidol [From HALDOL] Allergy (Severe, Verified 08/30/22 16:27) DYSTONIA ziprasidone [From GEODON] Allergy (Severe, Verified 08/30/22 16:27) DYSTONIA olanzapine Allergy (Verified 02/23/23 09:56) Unknown oxycodone Allergy (Verified 02/23/23 09:56) itchy and burning HPI [employer]- Medial Lac Left Index finger HPI Details 37-year-old male who presents to the [facility] today for evaluation of left index finger injury s/p cutting cheese when he accidentally cut his finger, 02/06/23. He was seen at ED the same day where he was referred to our office. He states he has mild numbness in his index finger but denies any pain. His pain is aggravated in the morning when he bumps his finger on the wall. He is completed with his antibiotics prescribed by the ED. [facility] Medical History Antisocial personality disorder Depression Schizoaffective disorder Bipolar 1 disorder, depressed Psychosis Asthma Social History (Updated 02/23/23 @ 10:00 by Lotus Byrd [facility]) Household Members: Other Household Members Other:: intermediate Housing: Other Housing Other:: intermediate Unable to assess alcohol history related to: Unknown Alcohol intake: unknown Patient Tobacco Use Status: Current everyday Tobacco user Substance Use Type: Marijuana service: No Current occupational status: unemployed Current occupation: right hand dominant Sexual orientation: Straight/Heterosexual Review of Systems Const All systems reviewed & are unremarkable except as noted in HPI and below Physical Exam Vital Signs: BMI result Body Mass Index 31.0 Const General: cooperative, healthy appearing, comfortable, no acute distress, well developed and alert Orientation/consciousness: patient oriented x3 HEENT Head: Yes normal to inspection, Yes normocephalic and Yes atraumatic Eyes General: appearance normal, both eyes and all related structures Resp Effort & Inspection: normal respiratory effort and able to speak in complete sentences Cardio Rate: regular rate Peripheral pulses: Peripheral pulses 2+ throughout GI Palpation (GI): Soft to palpation Skin Lesions: no lesions Rashes: no rashes Neuro General: patient oriented x3 Extrem Other: Left index finger: Laceration along the radial aspect of the DIP of index finger. He does have skin coverage with scab formation. He has full sensation throughout the distal aspect of the phalanx. Assessment & Plan Assessment & Plan (1) Avulsion of finger tip: Code(s): S61.209A - Unspecified open wound of unspecified finger without damage to nail, initial encounter Qualifiers: Encounter type: initial encounter Qualified Code(s): S61.209A - Unspecified open wound of unspecified finger without damage to nail, initial encounter Plan He was given a finger splint to wear over the tip of his finger if he is involving in any type of activities where he may bump his finger. He has completed his antibiotics with no evidence of infection. If he develops any type of infection or worsening pain, he will contact our office, otherwise he will see me back in 2 weeks for a wound check. Patient Instructions: Scribed for Kwasi Mascorro PA-C, by Michael Alvarez medical office administrator, on 02/23/2023 at 9:45 AM EST. IKwasi PA-C, have personally reviewed and agree with the information entered by the scribe. Coding Level of Care Code New Pt Level 3 (63627) Diagnoses Avulsion of finger tip S61.209A Encounter type: initial encounter
[2023-02-23 10:01] VITALS: BMI 31.0
== END 2023-02-23 10:31 | disposition home or self-care (01) ==
PROVIDERS: PCP Internal Medicine Geriatric Medicine; Visit Provider Physician Assistant
DX: S61.209A Unspecified open wound of unspecified finger without damage to nail, initial encounter (principal)
CPT/HCPCS: 99203

== ENCOUNTER → 2023-02-23 09:43 | Outpatient (BNVA) | payer MEDICAID, SELFPAY | PROVIDERS: PCP Internal Medicine Geriatric Medicine; Visit Provider Physician Assistant | DX: S61.211A Laceration without foreign body of left index finger without damage to nail, initial encounter (principal); W26.0XXA Contact with knife, initial encounter; Y93.9 Activity, unspecified; Y92.190 Kitchen in other specified residential institution as the place of occurrence of the external cause; Y99.8 Other external cause status | CPT/HCPCS: 99212 ==

== ENCOUNTER 2023-03-19 13:04 | Inpatient (IN) | payer MEDICAID, OTHER, SELFPAY ==
[2023-03-19 13:28] VITALS: BP 113/65; BP 122/72; PULSE 75; PULSE 80; RESP 18; O2SAT 93; O2SAT 95; BMI 23.6
--- NOTE | 2023-03-19 16:27 | ECG_ITS ---
Test Reason : Qt check Blood Pressure : / mmHG Vent. Rate : 075 BPM Atrial Rate : 075 BPM P-R Int : 178 ms QRS Dur : 102 ms QT Int : 388 ms P-R-T Axes : 071 -31 026 degrees QTc Int : 433 ms Normal sinus rhythm with sinus arrhythmia Left anterior fascicular block RSR' or QR pattern in V1 suggests right ventricular conduction delay Minimal voltage criteria for LVH, may be normal variant ( Barney product ) Abnormal ECG When compared with ECG of 30-AUG-2022 20:20, No significant change was found Referred By: Jono Dunlap Electronically Signed By:RICHY GRIMALDO MD
--- NOTE | 2023-03-19 16:36 | MHC.EDTECH ---
Patient refused labs drawn and having an EKG nurse Shayy notified.
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
[2023-03-19 17:03] LABS: MANUAL DIFF FLAG NO
[2023-03-19 17:06] LABS: Basophils Percent Auto 0.4 % (0-2); Eosinophils Absolute Auto 0.1 X10*3/uL (0.0-0.4); Eosinophils Percent Auto 0.6 % (0-4); Hematocrit 47.5 % (42.0-52.0); Hemoglobin 15.7 g/dl (14.0-18.0); Imm Gran Abs Auto 0.12 X10*3/uL (0.00-0.03); Imm Gran Pct Auto 1.5 % (0.0-0.4); Lymphocytes Absolute Auto 1.9 X10*3/uL (1.2-4.9); Lymphocytes Percent Auto 22.9 % (20-40); Mean Corpuscular HGB Conc 33.1 g/dl (31.0-36.0); Mean Corpuscular Hemoglobin 26.3 pg (27.0-33.0); Mean Corpuscular Volume 79.6 fL (80.0-98.0); Mean Platelet Volume 10.1 fL (9.4-12.4); Monocytes Absolute Auto 0.4 X10*3/uL (0.1-1.2); Monocytes Percent Auto 4.9 % (2-11); Neutrophils Absolute Auto 5.7 x10*3/uL (2.0-8.3); Neutrophils Percent Auto 69.7 % (45-73); Platelet Count 193 X10*3/uL (160-400); Red Blood Count 5.97 X10*6/uL (4.60-5.80); Red Cell Distribution Width 13.8 % (11.0-16.0); White Blood Count 8.2 X10*3/uL (4.8-10.8)
[2023-03-19 17:06] LABS: Appearance Urine Clear; Color Urine Yellow; Glucose Urine UA Negative (Negative); Leukocyte Esterase Urine Negative (Negative); Nitrite Urine Negative (Negative); Urine Blood Negative (Negative); Urine Ketones Negative (Negative); Urine Protein Negative (Neg-Trace)
[2023-03-19 17:09] LABS: Bacteria Urine None Seen (None Seen); Hyaline Casts Urine 0-2 /LPF (0-2); RBC Urine 0-2 /HPF (0-2); Squamous Epithelial Cell Urine 0-2 /HPF (0-2); WBC Urine 0-5 /HPF (0-5)
[2023-03-19 17:14] LABS: Amphetamine Screen Urine Not Detected (Not Detect); Barbiturates, Urine Not Detected (Not Detect); Benzodiazepines Screen Urine Not Detected (Not Detect); Cannabinoid Screen Urine POSITIVE (Not Detect); Cocaine Screen Urine Not Detected (Not Detect); Fentanyl, urine Not Detected (Not Detect); Opiate Screen Urine Not Detected (Not Detect); Phencyclidine Screen Urine Not Detected (Not Detect)
[2023-03-19 17:26] LABS: Acetaminophen LAB < 17 mcg/mL (<30); Alanine Aminotransferase 31 U/L (0-40); Albumin Level 4.4 g/dL (3.5-5.0); Alkaline Phosphatase 59 U/L (39-117); Anion Gap 15 (12-20); Aspartate Amino Transferase 22 U/L (5-37); Bilirubin Total 0.5 mg/dL (0.0-1.0); Blood Urea Nitrogen 13 mg/dL (9-16); Calcium 9.8 mg/dL (8.4-10.2); Carbon Dioxide 21 mmol/L (22-29); Chloride 107 mmol/L (96-108); Creatinine Clr Calc Pharmacy 106.3; Estimated Glomerular Filt Rate > 60; Ethanol < 10 mg/dL; Glucose Random 96 mg/dL (60-115); Lipase 13 U/L (8-78); Potassium 3.7 mmol/L (3.3-5.1); Salicylate < 5.0 mg/dL (15-30); Sodium 139 mmol/L (135-145); Total Protein 6.9 g/dL (6.5-8.0)
[2023-03-19 17:26] LABS: COVID-19 Test Negative (Negative); IDNOW Serial# 9DB6401D
--- NOTE | 2023-03-19 17:48 | PC.NURSE ---
labs drawn, EKG done. results pending to medically clear pt for CARE team rae
[2023-03-19 18:00] VITALS: BP 110/65; PULSE 68; RESP 16; TEMP 36.9; O2SAT 95
--- NOTE | 2023-03-19 19:20 | PC.NURSE ---
assumed care of pt, pt resting calmly in stretcher. 1-1 observer
--- NOTE | 2023-03-19 19:37 | PC.NURSE ---
security at beside for search/place change roof bolter
--- NOTE | 2023-03-19 19:59 | PC.NURSE ---
security allowed pt to keep watch on person
--- NOTE | 2023-03-19 22:42 | PC.NURSE ---
care team at bedside
[2023-03-20 01:27] VITALS: BP 113/63; PULSE 65; RESP 15; TEMP 36.3; O2SAT 98
[2023-03-20] MEDS: hydrOXYzine HCL 50 MG TABLET 100 MG PO ×2 (01:45→20:46)
--- NOTE | 2023-03-20 01:45 | PC.NURSE ---
pt requests only 50mg of hydroxyzine instead of the ordered 100, let provider know and administered 50mg per pt request
--- NOTE | 2023-03-20 08:15 | PC.NURSE ---
pt is currently sleeping, respirations even and unlabored, sitter in place
--- NOTE | 2023-03-20 08:37 | PC.NURSE ---
Emilie from [facility] at bedside for evaluation, plan for the pt to go in patient psych
[2023-03-20] MEDS: Paliperidone ER 3 MG TAB.ER.24 PO (10:47)
[2023-03-20] MEDS: Paliperidone ER 6 MG TAB.ER.24 PO (20:09)
[2023-03-20 23:04] VITALS: RESP 16
--- NOTE | 2023-03-21 00:20 | PC.NURSE ---
This RN assume care of patient at 2300, patient has been sleeping, respirations even and unlabored, no apparent distress
[2023-03-21 06:18] VITALS: RESP 12
[2023-03-21] MEDS: Paliperidone ER 3 MG TAB.ER.24 PO (09:52)
[2023-03-21 10:22] LABS: COVID-19 Test Negative (Negative); IDNOW Serial# 9DB6401D
--- NOTE | 2023-03-21 14:32 | PC.NURSE ---
Asif was in his room resting for most of the day. No behavioral concerns. Adherent with his medications. Appetite good. Denies SI/HI/AVH. Denies pain or discomfort.
[2023-03-21 15:00] VITALS: BP 126/62; PULSE 96; RESP 18; TEMP 36.1; O2SAT 98
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
[2023-03-21 19:30] VITALS: BP 98/60; PULSE 67; RESP 16; TEMP 36.2; O2SAT 97
[2023-03-21] MEDS: Paliperidone ER 6 MG TAB.ER.24 PO (20:25)
[2023-03-21] MEDS: hydrOXYzine HCL 25 MG TABLET PO (20:37)
--- NOTE | 2023-03-22 | ECG_ITS ---
Test Reason : abn ekg Blood Pressure : / mmHG Vent. Rate : 055 BPM Atrial Rate : 055 BPM P-R Int : 180 ms QRS Dur : 108 ms QT Int : 408 ms P-R-T Axes : 048 -18 002 degrees QTc Int : 390 ms Sinus bradycardia Incomplete right bundle branch block Minimal voltage criteria for LVH, may be normal variant ( [place] product ) Borderline ECG When compared with ECG of 19-MAR-2023 17:09, No significant changes seen Referred By: Darryn Will Electronically Signed By:RICHY GRIMALDO MD
[2023-03-22] MEDS: hydrOXYzine HCL 50 MG TABLET 100 MG PO (00:26)
--- NOTE | 2023-03-22 00:31 | PC.NURSE ---
Asif c/o insomnia and states that trazodone doesn't work for him. he states it makes me groggy but I don't fall asleep. it's like I can't sleep if i take it. A 1 X order for Atarax 100mg obtained and given with pending effects at this time. This riter also noted that the patient is listed as having a guardian in the computer however when this financial underwriter questioned this financial underwriter he stated that he has a [place] guardian but not a regular physical guardian.
[2023-03-22 08:40] LABS: Estimated Average Glucose 100 mg/dL; Hemoglobin A1c % 5.1 % (<6.0)
[2023-03-22 08:54] VITALS: BP 109/59; PULSE 74; RESP 16; TEMP 36.3; O2SAT 98
[2023-03-22] MEDS: Paliperidone ER 3 MG TAB.ER.24 PO (09:00)
[2023-03-22 09:22] LABS: Cholesterol 176 mg/dL (<200); HDL Cholesterol 35 mg/dL (>40); LDL Cholesterol Calculated 127 mg/dL (<100); Triglycerides 74 mg/dL (<150)
[2023-03-22 09:29] LABS: Free T4 (Free Thyroxine) 1.11 ng/dL (0.71-1.85); Thyroid Stimulating Hormone 2.84 uIU/mL (0.32-4.0)
[2023-03-22 09:37] LABS: Folate 8.2 ng/mL (> or = 4.0); Vitamin B12 533 pg/mL (200-900)
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
[2023-03-22] MEDS: Lithium Carbonate ER 450 MG TABLET.ER PO ×2 (13:19→20:17)
[2023-03-22 19:35] VITALS: BP 110/66; PULSE 69; RESP 15; TEMP 36.5; O2SAT 98
[2023-03-22] MEDS: QUEtiapine Fumarate 50 MG TABLET PO (20:18)
[2023-03-22] MEDS: diphenhydrAMINE HCL 25 MG CAPSULE 50 MG PO (22:30)
[2023-03-23] MEDS: diphenhydrAMINE HCL 25 MG CAPSULE 50 MG PO (04:43)
[2023-03-23 07:05] VITALS: BP 102/58; PULSE 67; RESP 16; TEMP 36.4; O2SAT 98
[2023-03-23] MEDS: Lithium Carbonate ER 450 MG TABLET.ER PO ×2 (09:09→20:26)
--- NOTE | 2023-03-23 10:02 | PM.CNCAR ---
History of Present Illness History of Present Illness Date of Service: 03/23/23 Requesting physician: Darryn Will Consult reason: other (Abnormal EKG) Chief complaint: Psychosis Narrative: I was consulted to see Asif in cardiology consultation today for noted EKG changes. Patient is 37 year-old male admitted with mood instability and psychosis. He has had no prior cardiac history. Denies any cardiac symptoms with activity. Denies any exertional chest pain shortness of breath. He said he intermittently gets symptoms of sharp chest discomfort in the center of the chest that last for couple of seconds. These are not exertion related. Patient planned to be started on lithium and other psychoactive medications. EKG noted to have left axis deviation consistent with left anterior fascicular block and incomplete right bundle-branch block with normal QT interval. Denies any family history of premature sudden cardiac that though coronary artery disease. Review of Systems Review of Systems: Yes all other systems are reviewed and are negative [facility] Past Medical History Medical History Antisocial personality disorder Depression Schizoaffective disorder Bipolar 1 disorder, depressed Psychosis Asthma Social History Social History (Updated 02/23/23 @ 10:00 by Lotus Byrd [facility]) Household Members: None Household Members Other:: penitentiary Housing: Apartment Housing Other:: penitentiary Do you presently have visiting nurse or other home services: Yes Unable to assess alcohol history related to: Unknown Alcohol intake: unknown Patient Tobacco Use Status: Former Tobacco user Quit Date: 03/10/23 Tobacco use type: Cigarette Smoked in Last 30 Days: Yes e-Cigarette/Vaping Use: Never Used Patient Interested in Nicotine Replacement: No Patient Given Instructions on How to Stop Smoking: No Second Hand Smoke Exposure: No Use of substances other than those prescribed or required for medical reasons: Yes Substance Use Type: Marijuana Substance Use Frequency: Occasionally Last Used Substance: Weeks (ago) Currently Displaying Signs/Symptoms of Drug Intoxication Withdrawal: No Any prior treatment program specific to substance use: No Have you been hit, kicked, punched, or otherwise hurt by someone within the past year? If so, by whom?: No Do you feel safe in your current relationship?: No Current Relationship Is there a partner from a previous relationship who is making you feel unsafe now?: No Are you made to feel afraid or neglected: No Spiritual Healthcare Practices: Denies Protestant Healthcare Practices: Denies Cultural Healthcare Practices: Denies Advance Directives: No Advance Directives Information Provided: No (Declined) Healthcare Proxy: Yes (Mother) Guardian: No Do you have thoughts of harming others: None Do you have a plan to hurt others: No Plan Recently lost weight without trying: No How much weight loss: Not applicable Eating poorly because of decreased appetite: No Nutrition screen score: 0 Nutrition Risks: No Nutritional Risk Poor oral hygiene: No service: No Current occupational status: unemployed Current occupation: right hand dominant Sexual orientation: Straight/Heterosexual Meds Allergies Allergy/AdvReac Type Severity Reaction Status Date / Time haloperidol [From HALDOL] Allergy Severe DYSTONIA Verified 08/30/22 16:27 ziprasidone [From GEODON] Allergy Severe DYSTONIA Verified 08/30/22 16:27 olanzapine Allergy Unknown Verified 02/23/23 09:56 oxycodone Allergy itchy and Verified 02/23/23 09:56 burning Active Medications: Current Medications Acetaminophen (Acetaminophen 325 Mg Tablet) 650 mg PO Q6H PRN PRN Reason: Headache/Pain Mild Scale (1-3) Al Hydroxide/Mg Hydroxide (Magnesium Hydrox/Alum Hydrox 30 Ml Oral.Susp) 30 ml PO Q6H PRN PRN Reason: Heartburn/Nausea Diphenhydramine HCl (Diphenhydramine Hcl 25 Mg Capsule) 50 mg PO Q4H PRN PRN Reason: EPS or anxiety Last Admin: 03/22/23 22:30 Dose: 50 mg [place] Carbonate ([place]ats Carbonate Er 450 Mg Tablet.Er) 450 mg PO BID [facility] Last Admin: 03/23/23 09:09 Dose: 450 mg Magnesium Hydroxide (Milk Of Magnesia 30 Ml Oral.Susp) 30 ml PO DAILY PRN PRN Reason: Constipation Nicotine Polacrilex (Nicotine Polacrilex 2 Mg Gum) 4 mg BUCCAL Q2H PRN PRN Reason: Nicotine Cravings Paliperidone (Paliperidone Er 6 Mg Tab.Er.24) 6 mg PO BEDTIME [facility] Last Admin: 03/21/23 20:25 Dose: 6 mg Paliperidone (Paliperidone Er 3 Mg Tab.Er.24) 3 mg PO DAILY [facility] Last Admin: 03/23/23 09:58 Dose: Not Given Quetiapine Fumarate (Quetiapine Fumarate 50 Mg Tablet) 50 mg PO BEDTIME [facility] Last Admin: 03/22/23 20:18 Dose: 50 mg Quetiapine Fumarate (Quetiapine Fumarate 50 Mg Tablet) 50 mg PO BEDTIME PRN PRN Reason: insomnia Home Medications Medication Instructions Recorded Confirmed Last Taken Type paliperidone 6 mg tablet,extended 6 mg PO BEDTIME 08/29/22 03/20/23 03/18/23 21:00 History release 24 hr ([facility]) Physical Exam Vital Signs: Vital Signs: Last Vital Signs Temp 97.5 F 03/23/23 07:05 Pulse 67 03/23/23 07:05 Resp 16 03/23/23 07:05 BP 102/58 L 03/23/23 07:05 Pulse Ox 98 03/23/23 07:05 O2 Del Method Room Air 03/23/23 07:05 BMI result Body Mass Index 23.6 Const: General: cooperative, comfortable, no acute distress, well developed, alert, awake and Physically active Nutritional Appearance: average body habitus and well nourished Orientation/consciousness: patient oriented x3 Limitations: no limitations HEENT: Head: Yes normocephalic and Yes atraumatic Neck: Neck: Yes trachea midline, Yes supple and Yes no JVD Resp: Effort & Inspection: normal respiratory effort Auscultation: clear to auscultation bilaterally Cardio: Jugular venous distension: no JVD Palpation: normal PMI Rate: regular rate Rhythm: regular rhythm Heart sounds: S1 normal heart sound present, S2 normal heart sound present, no click, no gallops, no murmurs and no rubs GI: Auscultation: normal bowel sounds Skin: General skin exam: no rashes or lesions noted Neuro: General: patient oriented x3 and no focal motor deficits Extrem: General: Yes no clubbing, cyanosis or edema Objective Labs and Meds 03/19/23 16:59 03/19/23 16:58 Lab results: EKG done today shows normal sinus rhythm with incomplete right bundle-branch block, unchanged, axis is leftward but shows no evidence of left anterior fascicular block. Assessment and Plan (1) Schizoaffective disorder, bipolar type: Status: Acute Patient admitted with suggest effective bipolar disorder with mood instability and psychosis. Plan to be started on lithium as well as other psychoactive medications. Noted EKG on some EKG to have a left anterior fascicular block. EKG from yesterday does not show any significant changes. He does have incomplete right bundle-branch block. His cardiac physical findings are within normal limits. He has no cardiac symptoms. At current time I do not see any cardiac contraindications to psychoactive medications. No further workup is indicated. Will sign of the case. Thank you for allowing me to partake in his care Time Spent With Patient Time: Total time managing care of this patient today ____ minutes. Procedures Date of Service Date of Service: 03/23/23
--- NOTE | 2023-03-23 16:15 | HO.PSYCHPN ---
Subjective Subjective Date of Service: 03/23/23 Reason For Visit: Psychosis Interim History: feels that seroquel gave him a numb pain sensation throughout his body last night, doesn't want to take it. also describes it as an electric sensation. much discussion held around addressing insomnia. pt asks for lunesta, agrees to ativan 2 mg and elavil PRN. aware ativan will NOT be prescribed upon discharge. informed of plan to increase lithium tomorrow as long as it continues to feel innocuous. per staff, guarded, withdrawn. calm, cooperative. no SI/HI/AVH. feeling safe on unit. poor sleep. Mental Status Exam Mental Status Exam Narrative: Pt is alert and oriented; behavior is cooperative, calm; patient is not in physical distress; dressed in street clothes, adequately groomed, with adequate hygiene; affect constricted; eye contact appropriate; Speech is normal rate, volume and prosody and not pressured; no PMA/PMR; thought process is looser and more digressive than yesterday; Thought content is on treatment for insomnia; no SI/HI/AVH expressed. Patients insight and judgment impaired. Diagnostics Vital Signs (24Hr): Vital Signs - 24 hr 03/22/23 19:35 03/23/23 07:05 Temperature 97.7 F 97.5 F Pulse Rate 69 67 Respiratory Rate 15 16 Blood Pressure 110/66 102/58 L Pulse Oximetry 98 98 Oxygen Delivery Method Room Air Room Air BMI result Body Mass Index 23.6 Labs 03/19/23 16:59 03/19/23 16:58 Labs: Laboratory Results - last 48 hr 03/22/23 08:14 Estimat Average Glucose 100 Hemoglobin A1c % 5.1 Triglycerides 74 Cholesterol 176 LDL Cholesterol, Calc 127 H HDL Cholesterol 35 L Vitamin B12 533 Folate 8.2 TSH 2.84 Free T4 1.11 Medications Medications Current Medications Acetaminophen (Acetaminophen 325 Mg Tablet) 650 mg PO Q6H PRN PRN Reason: Headache/Pain Mild Scale (1-3) Al Hydroxide/Mg Hydroxide (Magnesium Hydrox/Alum Hydrox 30 Ml Oral.Susp) 30 ml PO Q6H PRN PRN Reason: Heartburn/Nausea Amitriptyline HCl (Amitriptyline Hcl 50 Mg Tablet) 50 mg PO BEDTIME PRN PRN Reason: insomnia Diphenhydramine HCl (Diphenhydramine Hcl 25 Mg Capsule) 50 mg PO Q4H PRN PRN Reason: EPS or anxiety Last Admin: 03/22/23 22:30 Dose: 50 mg [place] Carbonate ([place] Carbonate Er 450 Mg Tablet.Er) 450 mg PO BID [facility] Last Admin: 03/23/23 09:09 Dose: 450 mg Lorazepam (Lorazepam 1 Mg Tablet) 2 mg PO BEDTIME [facility] Magnesium Hydroxide (Milk Of Magnesia 30 Ml Oral.Susp) 30 ml PO DAILY PRN PRN Reason: Constipation Nicotine Polacrilex (Nicotine Polacrilex 2 Mg Gum) 4 mg BUCCAL Q2H PRN PRN Reason: Nicotine Cravings Paliperidone (Paliperidone Er 6 Mg Tab.Er.24) 6 mg PO BEDTIME [facility] Last Admin: 03/21/23 20:25 Dose: 6 mg Paliperidone (Paliperidone Er 3 Mg Tab.Er.24) 3 mg PO DAILY [facility] Last Admin: 03/23/23 09:58 Dose: Not Given Allergies Allergies Allergy/AdvReac Type Severity Reaction Status Date / Time haloperidol [From HALDOL] Allergy Severe DYSTONIA Verified 08/30/22 16:27 ziprasidone [From GEODON] Allergy Severe DYSTONIA Verified 08/30/22 16:27 olanzapine Allergy Unknown Verified 02/23/23 09:56 oxycodone Allergy itchy and Verified 02/23/23 09:56 burning Assessment & Plan Assessment & Plan (1) Schizoaffective disorder, bipolar type: Status: Acute Code(s): F25.0 - Schizoaffective disorder, bipolar type (2) EKG abnormalities: Status: Acute Code(s): R94.31 - Abnormal electrocardiogram [ECG] [EKG] Assessment and Plan: Patient admitted with suggest effective bipolar disorder with mood instability and psychosis. Plan to be started on lithium as well as other psychoactive medications. Noted EKG on some EKG to have a left anterior fascicular block. EKG from yesterday does not show any significant changes. He does have incomplete right bundle-branch block. His cardiac physical findings are within normal limits. He has no cardiac symptoms. At current time I do not see any cardiac contraindications to psychoactive medications. No further workup is indicated. Will sign of the case. Thank you for allowing me to partake in his care. Plan 03/22: add lithium 450 BID for mood stabilization. DC evening paliperidone in favor of seroquel to help with sleep. hopefully pt can DC all PO paliperidone as he is already on COKER of the same. titrate seroquel as inidcated; pt was concerned to not start at a high dose, can't recall the dosing that has been helpful in the past. also described possibly akathisia with seroquel; benadryl PRN trial for EPS. 03/23: feels uncomfortable full-body sensation with seroquel so doesn't want to take it. also refused morning paliperidone because he would like to just be on the COKER. agreeable to ativan 2 mg at HS for insomnia with PRN of elavil 50. plan to increase lithium tomorrow. Reason for continued inpatient stay Substantial Risk for: inability to function and rapid decompensation Time Spent With Patient Time: Total time managing care of this patient today __35__ minutes.
[2023-03-23 20:25] VITALS: BP 129/72; PULSE 88; RESP 16; TEMP 36.9; O2SAT 96
[2023-03-23] MEDS: LORazepam 1 MG TABLET 2 MG PO (20:26)
[2023-03-24 07:00] VITALS: BMI 30.4
[2023-03-24 07:44] VITALS: BP 99/57; PULSE 72; RESP 16; TEMP 36.9; O2SAT 98
[2023-03-24] MEDS: Lithium Carbonate ER 450 MG TABLET.ER PO (08:26)
[2023-03-24] MEDS: Lithium Carbonate 300 MG TABLET 150 MG PO (11:58)
--- NOTE | 2023-03-24 16:07 | HO.PSYCHPN ---
Subjective Subjective Date of Service: 03/24/23 Reason For Visit: Psychosis Interim History: feeling relatively well. slept well overnight. no complaints about lithium. believes it is helpful for him, saying he doesn't get worked up like i did (less irritable and labile) and that he is more open to things (less paranoid). reluctantly agreeable to increase lithium from 450 BID to 600 BID as of today. per staff, depressed, flat, withdrawn. attending groups. isolative. denies SI/AVH. Mental Status Exam Mental Status Exam Narrative: Pt is alert and oriented; behavior is cooperative, calm; patient is not in physical distress; dressed in street clothes, adequately groomed, with adequate hygiene; affect constricted; eye contact appropriate; Speech is normal rate, volume and prosody and not pressured; no PMA/PMR; thought process is more linear and logical than yesterday; Thought content is on treatment; no SI/HI/AVH expressed. Patients insight and judgment impaired. Diagnostics Vital Signs (24Hr): Vital Signs - 24 hr 03/23/23 20:25 03/24/23 07:44 Temperature 98.5 F 98.4 F Pulse Rate 88 72 Respiratory Rate 16 16 Blood Pressure 129/72 99/57 L Pulse Oximetry 96 98 Oxygen Delivery Method Room Air Room Air BMI result Body Mass Index 30.4 Labs 03/19/23 16:59 03/19/23 16:58 Medications Medications Current Medications Acetaminophen (Acetaminophen 325 Mg Tablet) 650 mg PO Q6H PRN PRN Reason: Headache/Pain Mild Scale (1-3) Al Hydroxide/Mg Hydroxide (Magnesium Hydrox/Alum Hydrox 30 Ml Oral.Susp) 30 ml PO Q6H PRN PRN Reason: Heartburn/Nausea Amitriptyline HCl (Amitriptyline Hcl 50 Mg Tablet) 50 mg PO BEDTIME PRN PRN Reason: insomnia Diphenhydramine HCl (Diphenhydramine Hcl 25 Mg Capsule) 50 mg PO Q4H PRN PRN Reason: EPS or anxiety Last Admin: 03/22/23 22:30 Dose: 50 mg [place] Carbonate ([place] Carbonate Er 300 Mg Tablet.Er) 600 mg PO BID [facility] Lorazepam (Lorazepam 1 Mg Tablet) 2 mg PO BEDTIME [facility] Last Admin: 03/23/23 20:26 Dose: 2 mg Magnesium Hydroxide (Milk Of Magnesia 30 Ml Oral.Susp) 30 ml PO DAILY PRN PRN Reason: Constipation Nicotine Polacrilex (Nicotine Polacrilex 2 Mg Gum) 4 mg BUCCAL Q2H PRN PRN Reason: Nicotine Cravings Paliperidone (Paliperidone Er 6 Mg Tab.Er.24) 6 mg PO BEDTIME [facility] Last Admin: 03/21/23 20:25 Dose: 6 mg Paliperidone (Paliperidone Er 3 Mg Tab.Er.24) 3 mg PO DAILY [facility] Last Admin: 03/23/23 09:58 Dose: Not Given Allergies Allergies Allergy/AdvReac Type Severity Reaction Status Date / Time haloperidol [From HALDOL] Allergy Severe DYSTONIA Verified 08/30/22 16:27 ziprasidone [From GEODON] Allergy Severe DYSTONIA Verified 08/30/22 16:27 olanzapine Allergy Unknown Verified 02/23/23 09:56 oxycodone Allergy itchy and Verified 02/23/23 09:56 burning Assessment & Plan Assessment & Plan (1) Schizoaffective disorder, bipolar type: Status: Acute Code(s): F25.0 - Schizoaffective disorder, bipolar type (2) EKG abnormalities: Status: Acute Code(s): R94.31 - Abnormal electrocardiogram [ECG] [EKG] Assessment and Plan: Patient admitted with suggest effective bipolar disorder with mood instability and psychosis. Plan to be started on lithium as well as other psychoactive medications. Noted EKG on some EKG to have a left anterior fascicular block. EKG from yesterday does not show any significant changes. He does have incomplete right bundle-branch block. His cardiac physical findings are within normal limits. He has no cardiac symptoms. At current time I do not see any cardiac contraindications to psychoactive medications. No further workup is indicated. Will sign of the case. Thank you for allowing me to partake in his care. Plan 03/22: add lithium 450 BID for mood stabilization. DC evening paliperidone in favor of seroquel to help with sleep. hopefully pt can DC all PO paliperidone as he is already on COKER of the same. titrate seroquel as inidcated; pt was concerned to not start at a high dose, can't recall the dosing that has been helpful in the past. also described possibly akathisia with seroquel; benadryl PRN trial for EPS. 10/25: feels uncomfortable full-body sensation with seroquel so doesn't want to take it. also refused morning paliperidone because he would like to just be on the COKER. agreeable to ativan 2 mg at HS for insomnia with PRN of elavil 50. plan to increase lithium tomorrow. 03/24: slept well last night. no PO anti-psychotics presently. continue current mgmt aside from increasing lithium from 450 BID to 600 BID as of today. notes less irritability/lability and paranoia on lithium. Reason for continued inpatient stay Substantial Risk for: rapid decompensation Time Spent With Patient Time: Total time managing care of this patient today __25__ minutes.
[2023-03-24 20:09] VITALS: BP 117/69; PULSE 63; RESP 16; TEMP 36.6; O2SAT 100
[2023-03-24] MEDS: Amitriptyline HCl 50 MG TABLET PO (20:54)
[2023-03-24] MEDS: Lithium Carbonate ER 300 MG TABLET.ER 600 MG PO (20:55)
[2023-03-24] MEDS: LORazepam 1 MG TABLET 2 MG PO (22:57)
[2023-03-25 08:00] VITALS: BP 107/61; PULSE 71; RESP 16; TEMP 36.4; O2SAT 98
[2023-03-25] MEDS: Lithium Carbonate ER 300 MG TABLET.ER 600 MG PO ×2 (09:04→21:18)
--- NOTE | 2023-03-25 14:14 | P.PNPSI_ITS ---
Subjective Subjective Date of Service: 03/25/23 Reason For Visit: Psychosis Interim History: reports elavil did't work. agrees to trial of doxepin. ativan 2 mg after elavil worked well. per staff, denies dep/anx. sleeping. denied racing thoughts. taking meds. feeling more relaxed about his situation. Mental Status Exam Mental Status Exam Narrative: Pt is alert and oriented; behavior is cooperative, calm; patient is not in physical distress; dressed in street clothes, adequately groomed, with adequate hygiene; affect constricted; eye contact appropriate; Speech is normal rate, volume and prosody and not pressured; no PMA/PMR; thought process is more linear and logical than yesterday; Thought content is on treatment; no SI/HI/AVH expressed. Patients insight and judgment improving. Diagnostics Vital Signs (24Hr): Vital Signs - 24 hr 03/24/23 20:09 03/25/23 08:00 Temperature 98 F 97.6 F Pulse Rate 63 71 Respiratory Rate 16 16 Blood Pressure 117/69 107/61 Pulse Oximetry 100 98 Oxygen Delivery Method Room Air Room Air BMI result Body Mass Index 30.4 Labs 03/19/23 16:59 03/19/23 16:58 Medications Medications Current Medications Acetaminophen (Acetaminophen 325 Mg Tablet) 650 mg PO Q6H PRN PRN Reason: Headache/Pain Mild Scale (1-3) Al Hydroxide/Mg Hydroxide (Magnesium Hydrox/Alum Hydrox 30 Ml Oral.Susp) 30 ml PO Q6H PRN PRN Reason: Heartburn/Nausea Diphenhydramine HCl (Diphenhydramine Hcl 25 Mg Capsule) 50 mg PO Q4H PRN PRN Reason: EPS or anxiety Last Admin: 03/22/23 22:30 Dose: 50 mg Doxepin HCl (Doxepin Hcl 10 Mg Capsule) 10 mg PO BEDTIME [facility] [place] Carbonate ([place] Carbonate Er 300 Mg Tablet.Er) 600 mg PO BID [facility] Last Admin: 03/25/23 09:04 Dose: 600 mg Lorazepam (Lorazepam 1 Mg Tablet) 2 mg PO BEDTIME PRN PRN Reason: insomnia Magnesium Hydroxide (Milk Of Magnesia 30 Ml Oral.Susp) 30 ml PO DAILY PRN PRN Reason: Constipation Nicotine Polacrilex (Nicotine Polacrilex 2 Mg Gum) 4 mg BUCCAL Q2H PRN PRN Reason: Nicotine Cravings Paliperidone (Paliperidone Er 6 Mg Tab.Er.24) 6 mg PO BEDTIME [facility] Last Admin: 03/21/23 20:25 Dose: 6 mg Paliperidone (Paliperidone Er 3 Mg Tab.Er.24) 3 mg PO DAILY [facility] Last Admin: 03/23/23 09:58 Dose: Not Given Allergies Allergies Allergy/AdvReac Type Severity Reaction Status Date / Time haloperidol [From HALDOL] Allergy Severe DYSTONIA Verified 08/30/22 16:27 ziprasidone [From GEODON] Allergy Severe DYSTONIA Verified 08/30/22 16:27 olanzapine Allergy Unknown Verified 02/23/23 09:56 oxycodone Allergy itchy and Verified 02/23/23 09:56 burning Assessment & Plan Assessment & Plan (1) Schizoaffective disorder, bipolar type: Status: Acute Code(s): F25.0 - Schizoaffective disorder, bipolar type (2) EKG abnormalities: Status: Acute Code(s): R94.31 - Abnormal electrocardiogram [ECG] [EKG] Assessment and Plan: Patient admitted with suggest effective bipolar disorder with mood instability and psychosis. Plan to be started on lithium as well as other psychoactive medications. Noted EKG on some EKG to have a left anterior fascicular block. EKG from yesterday does not show any significant changes. He does have incomplete right bundle-branch block. His cardiac physical findings are within normal limits. He has no cardiac symptoms. At current time I do not see any cardiac contraindications to psychoactive medications. No further workup is indicated. Will sign of the case. Thank you for allowing me to partake in his care. Plan 03/22: add lithium 450 BID for mood stabilization. DC evening paliperidone in favor of seroquel to help with sleep. hopefully pt can DC all PO paliperidone as he is already on COKER of the same. titrate seroquel as inidcated; pt was concerned to not start at a high dose, can't recall the dosing that has been helpful in the past. also described possibly akathisia with seroquel; benadryl PRN trial for EPS. 03/23: feels uncomfortable full-body sensation with seroquel so doesn't want to take it. also refused morning paliperidone because he would like to just be on the COKER. agreeable to ativan 2 mg at HS for insomnia with PRN of elavil 50. plan to increase lithium tomorrow. 03/24: slept well last night. no PO anti-psychotics presently. continue current mgmt aside from increasing lithium from 450 BID to 600 BID as of today. notes less irritability/lability and paranoia on lithium. 03/25: elavil 50 not helpful for sleep, ativan 2 was. trial of doxepin tonight with ativan back-up. continue lithium 600 BID, check level tuesday. hoping for tuesday D/C. Reason for continued inpatient stay Substantial Risk for: inability to function and rapid decompensation Time Spent With Patient Time: Total time managing care of this patient today __25__ minutes.
[2023-03-25 18:00] VITALS: BP 114/71; PULSE 80; RESP 16; TEMP 36.8; O2SAT 98
[2023-03-25] MEDS: Doxepin HCl 10 MG CAPSULE PO (21:18)
[2023-03-26 08:30] VITALS: BP 97/62; PULSE 83; RESP 16; TEMP 36.6; O2SAT 99
[2023-03-26] MEDS: Lithium Carbonate ER 300 MG TABLET.ER 600 MG PO ×2 (09:13→20:50)
--- NOTE | 2023-03-26 10:12 | HO.PSYCHPN ---
Subjective Subjective Date of Service: 03/26/23 Reason For Visit: Psychosis Subjective Notes: Conditional Voluntary Interim History: Patient was seen and discussed in rounds today. Records and plans were reviewed. He continues to be isolative with some anxiety. Minimal depression. No hallucinations reported. He continues to be guarded. Eating and sleeping up to 7 hours. No complaints or side effects. No changes were made today. Review of Systems Review of Systems Yes all other systems are reviewed and are negative Mental Status Exam Mental Status Exam Narrative: In today's visit he is alert, oriented and pleasant. Normal speech. Moderate eye contact. Affect is appropriate, subdued. Some anxiety evident. No signs of psychosis. He is somewhat guarded. Could not be assessed cognitively. Judgment is intact. Diagnostics Vital Signs (24Hr): Vital Signs - 24 hr 03/25/23 18:00 Temperature 98.3 F Pulse Rate 80 Respiratory Rate 16 Blood Pressure 114/71 Pulse Oximetry 98 Oxygen Delivery Method Room Air BMI result Body Mass Index 30.4 Labs 03/19/23 16:59 03/19/23 16:58 Labs: Laboratory Results - last 48 hr 03/26/23 07:35 [place] 0.80 Medications Medications Current Medications Acetaminophen (Acetaminophen 325 Mg Tablet) 650 mg PO Q6H PRN PRN Reason: Headache/Pain Mild Scale (1-3) Al Hydroxide/Mg Hydroxide (Magnesium Hydrox/Alum Hydrox 30 Ml Oral.Susp) 30 ml PO Q6H PRN PRN Reason: Heartburn/Nausea Diphenhydramine HCl (Diphenhydramine Hcl 25 Mg Capsule) 50 mg PO Q4H PRN PRN Reason: EPS or anxiety Last Admin: 03/22/23 22:30 Dose: 50 mg Doxepin HCl (Doxepin Hcl 10 Mg Capsule) 10 mg PO BEDTIME [facility] Last Admin: 03/25/23 21:18 Dose: 10 mg [place] Carbonate ([place] Carbonate Er 300 Mg Tablet.Er) 600 mg PO BID [facility] Last Admin: 03/26/23 09:13 Dose: 600 mg Lorazepam (Lorazepam 1 Mg Tablet) 2 mg PO BEDTIME PRN PRN Reason: insomnia Magnesium Hydroxide (Milk Of Magnesia 30 Ml Oral.Susp) 30 ml PO DAILY PRN PRN Reason: Constipation Nicotine Polacrilex (Nicotine Polacrilex 2 Mg Gum) 4 mg BUCCAL Q2H PRN PRN Reason: Nicotine Cravings Paliperidone (Paliperidone Er 6 Mg Tab.Er.24) 6 mg PO BEDTIME [facility] Last Admin: 03/21/23 20:25 Dose: 6 mg Paliperidone (Paliperidone Er 3 Mg Tab.Er.24) 3 mg PO DAILY [facility] Last Admin: 03/23/23 09:58 Dose: Not Given Allergies Allergies Allergy/AdvReac Type Severity Reaction Status Date / Time haloperidol [From HALDOL] Allergy Severe DYSTONIA Verified 08/30/22 16:27 ziprasidone [From GEODON] Allergy Severe DYSTONIA Verified 08/30/22 16:27 olanzapine Allergy Unknown Verified 02/23/23 09:56 oxycodone Allergy itchy and Verified 02/23/23 09:56 burning Assessment & Plan Assessment & Plan (1) Schizoaffective disorder, bipolar type: Status: Acute Code(s): F25.0 - Schizoaffective disorder, bipolar type (2) EKG abnormalities: Status: Acute Code(s): R94.31 - Abnormal electrocardiogram [ECG] [EKG] Assessment and Plan: Patient admitted with suggest effective bipolar disorder with mood instability and psychosis. Plan to be started on lithium as well as other psychoactive medications. Noted EKG on some EKG to have a left anterior fascicular block. EKG from yesterday does not show any significant changes. He does have incomplete right bundle-branch block. His cardiac physical findings are within normal limits. He has no cardiac symptoms. At current time I do not see any cardiac contraindications to psychoactive medications. No further workup is indicated. Will sign of the case. Thank you for allowing me to partake in his care. Plan 03/22: add lithium 450 BID for mood stabilization. DC evening paliperidone in favor of seroquel to help with sleep. hopefully pt can DC all PO paliperidone as he is already on COKER of the same. titrate seroquel as inidcated; pt was concerned to not start at a high dose, can't recall the dosing that has been helpful in the past. also described possibly akathisia with seroquel; benadryl PRN trial for EPS. 03/23: feels uncomfortable full-body sensation with seroquel so doesn't want to take it. also refused morning paliperidone because he would like to just be on the COKER. agreeable to ativan 2 mg at HS for insomnia with PRN of elavil 50. plan to increase lithium tomorrow. 03/24: slept well last night. no PO anti-psychotics presently. continue current mgmt aside from increasing lithium from 450 BID to 600 BID as of today. notes less irritability/lability and paranoia on lithium. 03/25: elavil 50 not helpful for sleep, ativan 2 was. trial of doxepin tonight with ativan back-up. continue lithium 600 BID, check level tuesday. hoping for tuesday D/C. 03/26: Continue current regimen and plans Reason for continued inpatient stay Substantial Risk for: med/psych decompensation Time Spent With Patient Time: Total time managing care of this patient today ____ minutes.
[2023-03-26 20:11] VITALS: BP 110/56; PULSE 65; RESP 17; TEMP 36.4; O2SAT 98
[2023-03-26] MEDS: Doxepin HCl 10 MG CAPSULE PO (20:50)
[2023-03-27 08:27] VITALS: BP 92/52; PULSE 64; RESP 16; TEMP 36.2; O2SAT 97
[2023-03-27] MEDS: Lithium Carbonate ER 300 MG TABLET.ER 600 MG PO ×2 (09:06→21:00)
--- NOTE | 2023-03-27 09:14 | P.PNPSI_ITS ---
Subjective Subjective Date of Service: 03/27/23 Reason For Visit: Psychosis Subjective Notes: Conditional Voluntary Interim History: Patient was seen and discussed in rounds today. Records and plans were reviewed. He has been stable but still isolative. His lithium level was 0.8. He has been medication compliant. No complaints or side effects. Eating and sleeping adequately. No changes were made today Medication Compliance: Yes Side effects from medications: No Attending Groups: Yes Mental Status Exam Mental Status Exam Narrative: In today's visit he is alert, oriented and pleasant. Normal speech. Moderate eye contact. Affect is appropriate, subdued. Some anxiety evident. No signs of psychosis. He is somewhat guarded. Could not be assessed cognitively. Judgment is intact. Diagnostics Vital Signs (24Hr): Vital Signs - 24 hr 03/26/23 20:11 03/27/23 08:27 Temperature 97.5 F 97.1 F Pulse Rate 65 64 Respiratory Rate 17 16 Blood Pressure 110/56 L 92/52 L Pulse Oximetry 98 97 Oxygen Delivery Method Room Air Room Air BMI result Body Mass Index 30.4 Labs 03/19/23 16:59 03/19/23 16:58 Labs: Laboratory Results - last 48 hr 03/26/23 07:35 [facility] 0.80 Medications Medications Current Medications Acetaminophen (Acetaminophen 325 Mg Tablet) 650 mg PO Q6H PRN PRN Reason: Headache/Pain Mild Scale (1-3) Al Hydroxide/Mg Hydroxide (Magnesium Hydrox/Alum Hydrox 30 Ml Oral.Susp) 30 ml PO Q6H PRN PRN Reason: Heartburn/Nausea Diphenhydramine HCl (Diphenhydramine Hcl 25 Mg Capsule) 50 mg PO Q4H PRN PRN Reason: EPS or anxiety Last Admin: 03/22/23 22:30 Dose: 50 mg Doxepin HCl (Doxepin Hcl 10 Mg Capsule) 10 mg PO BEDTIME [facility] Last Admin: 03/26/23 20:50 Dose: [address] [facility] Carbonate ([facility] Carbonate Er 300 Mg Tablet.Er) 600 mg PO BID [facility] Last Admin: 03/27/23 09:06 Dose: 600 mg Lorazepam (Lorazepam 1 Mg Tablet) 2 mg PO BEDTIME PRN PRN Reason: insomnia Magnesium Hydroxide (Milk Of Magnesia 30 Ml Oral.Susp) 30 ml PO DAILY PRN PRN Reason: Constipation Nicotine Polacrilex (Nicotine Polacrilex 2 Mg Gum) 4 mg BUCCAL Q2H PRN PRN Reason: Nicotine Cravings Paliperidone (Paliperidone Er 6 Mg Tab.Er.24) 6 mg PO BEDTIME [facility] Last Admin: 03/21/23 20:25 Dose: 6 mg Paliperidone (Paliperidone Er 3 Mg Tab.Er.24) 3 mg PO DAILY [facility] Last Admin: 03/23/23 09:58 Dose: Not Given Allergies Allergies Allergy/AdvReac Type Severity Reaction Status Date / Time haloperidol [From HALDOL] Allergy Severe DYSTONIA Verified 08/30/22 16:27 ziprasidone [From GEODON] Allergy Severe DYSTONIA Verified 08/30/22 16:27 olanzapine Allergy Unknown Verified 02/23/23 09:56 oxycodone Allergy itchy and Verified 02/23/23 09:56 burning Assessment & Plan Assessment & Plan (1) Schizoaffective disorder, bipolar type: Status: Acute Code(s): F25.0 - Schizoaffective disorder, bipolar type (2) EKG abnormalities: Status: Acute Code(s): R94.31 - Abnormal electrocardiogram [ECG] [EKG] Assessment and Plan: Patient admitted with suggest effective bipolar disorder with mood instability and psychosis. Plan to be started on lithium as well as other psychoactive medications. Noted EKG on some EKG to have a left anterior fascicular block. EKG from yesterday does not show any significant changes. He does have incomplete right bundle-branch block. His cardiac physical findings are within normal limits. He has no cardiac symptoms. At current time I do not see any cardiac contraindications to psychoactive medications. No further workup is indicated. Will sign of the case. Thank you for allowing me to partake in his care. Plan 03/22: add lithium 450 BID for mood stabilization. DC evening paliperidone in favor of seroquel to help with sleep. hopefully pt can DC all PO paliperidone as he is already on COKER of the same. titrate seroquel as inidcated; pt was concerned to not start at a high dose, can't recall the dosing that has been helpful in the past. also described possibly akathisia with seroquel; benadryl PRN trial for EPS. 03/23: feels uncomfortable full-body sensation with seroquel so doesn't want to take it. also refused morning paliperidone because he would like to just be on the COKER. agreeable to ativan 2 mg at HS for insomnia with PRN of elavil 50. plan to increase lithium tomorrow. 03/24: slept well last night. no PO anti-psychotics presently. continue current mgmt aside from increasing lithium from 450 BID to 600 BID as of today. notes less irritability/lability and paranoia on lithium. 03/25: elavil 50 not helpful for sleep, ativan 2 was. trial of doxepin tonight with ativan back-up. continue lithium 600 BID, check level tuesday. hoping for tuesday D/C. 03/26: Continue current regimen and plans 03/27: Continue current plans and regimen Reason for continued inpatient stay Substantial Risk for: med/psych decompensation Time Spent With Patient Time: Total time managing care of this patient today ____ minutes.
[2023-03-27 21:00] VITALS: BP 109/58; PULSE 55; RESP 16; TEMP 36.8; O2SAT 97
[2023-03-27] MEDS: Doxepin HCl 25 MG CAPSULE PO (21:14)
[2023-03-28 07:15] VITALS: BP 101/55; PULSE 70; TEMP 36.9; O2SAT 95
[2023-03-28] MEDS: Lithium Carbonate ER 300 MG TABLET.ER 600 MG PO ×2 (08:38→20:38)
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
[2023-03-28 19:50] VITALS: BP 126/66; PULSE 64; RESP 16; TEMP 36.8; O2SAT 97
[2023-03-28] MEDS: Doxepin HCl 25 MG CAPSULE PO (20:38)
[2023-03-29 09:00] VITALS: BP 115/66; PULSE 75; TEMP 36.6; O2SAT 98
[2023-03-29 09:21] LABS: Lithium 0.71 mmol/L (0.60-1.20)
[2023-03-29 09:25] LABS: Anion Gap 13 (12-20); Blood Urea Nitrogen 14 mg/dL (9-16); Calcium 9.8 mg/dL (8.4-10.2); Carbon Dioxide 26 mmol/L (22-29); Chloride 107 mmol/L (96-108); Creatinine Clr Calc Pharmacy 94.4; Estimated Glomerular Filt Rate > 60; Glucose Random 90 mg/dL (60-115); Potassium 4.2 mmol/L (3.3-5.1); Sodium 142 mmol/L (135-145)
[2023-03-29] MEDS: Lithium Carbonate ER 300 MG TABLET.ER 600 MG PO (09:58)
== END 2023-03-29 11:30 | disposition home or self-care (01) | DRG 750 ==
LOC: HO.ED 03-21 12:40 → HO.PADLT16 03-21 13:46
PROVIDERS: Physician Assistant; Admitting Provider Psychiatry & Neurology Psychiatry; Emergency Provider Emergency Medicine; Visit Provider Psychiatry & Neurology Psychiatry
DX: F25.0 Schizoaffective disorder, bipolar type (principal); F17.210 Nicotine dependence, cigarettes, uncomplicated; I45.10 Unspecified right bundle-branch block; Z87.891 Personal history of nicotine dependence; Z20.822 Contact with and (suspected) exposure to COVID-19; Z71.6 Tobacco abuse counseling; Z79.899 Other long term (current) drug therapy
CPT/HCPCS: 36415; 80048; 80053; 80061; 80143; 80178; 80179; 80307; 81001; 82607; 82746; 83036; 83690; 84439; 84443; 85025; 87635; 93005; 99285; S9485

== ENCOUNTER → 2023-03-21 13:43 | Outpatient (BNV) | payer OTHER, SELFPAY | PROVIDERS: Admitting Provider Psychiatry & Neurology Psychiatry; Emergency Provider Emergency Medicine; Visit Provider Psychiatry & Neurology Psychiatry | DX: F25.0 Schizoaffective disorder, bipolar type (principal); R94.31 Abnormal electrocardiogram [ECG] [EKG] | CPT/HCPCS: 99231; 99232; 99233 ==

== ENCOUNTER → 2023-03-21 13:43 | Outpatient (BNV) | payer MEDICAID, SELFPAY | PROVIDERS: Admitting Provider Psychiatry & Neurology Psychiatry; Emergency Provider Emergency Medicine; Visit Provider Internal Medicine Cardiovascular Disease | DX: F25.0 Schizoaffective disorder, bipolar type (principal) | CPT/HCPCS: 99222 ==

== ENCOUNTER 2023-06-07 15:50 | Inpatient (IN) | payer OTHER, SELFPAY ==
[2023-06-07 16:17] VITALS: BP 119/69; PULSE 90; RESP 16; TEMP 37.2; O2SAT 99; BMI 28.8
[2023-06-07 16:26] VITALS: RESP 18
[2023-06-07 16:36] LABS: Appearance Urine Clear; Color Urine Yellow; Glucose Urine UA Negative (Negative); Leukocyte Esterase Urine Trace (Negative); Nitrite Urine Negative (Negative); PH 6.5 (5.0-9.0); UMIC TRIGGER UACC YES; Urine Blood Negative (Negative); Urine Ketones 15 mg/dL (Negative); Urine Protein Negative (Neg-Trace)
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
[2023-06-07 16:39] LABS: Bacteria Urine None Seen (None Seen); Hyaline Casts Urine 0-2 /LPF (0-2); RBC Urine 0-2 /HPF (0-2); Squamous Epithelial Cell Urine 0-2 /HPF (0-2); WBC Urine 0-5 /HPF (0-5)
[2023-06-07 16:42] LABS: Amphetamine Screen Urine Not Detected (Not Detect); Barbiturates, Urine Not Detected (Not Detect); Benzodiazepines Screen Urine Not Detected (Not Detect); Cannabinoid Screen Urine Not Detected (Not Detect); Cocaine Screen Urine Not Detected (Not Detect); Fentanyl, urine Not Detected (Not Detect); Opiate Screen Urine Not Detected (Not Detect); Phencyclidine Screen Urine Not Detected (Not Detect)
[2023-06-07 16:58] LABS: COVID-19 Test Negative (Negative); IDNOW Serial# 58CA691E
[2023-06-07 17:07] LABS: MANUAL DIFF FLAG NO
[2023-06-07 17:13] LABS: Basophils Percent Auto 0.2 % (0-2); Eosinophils Percent Auto 0.1 % (0-4); Hematocrit 44.5 % (42.0-52.0); Hemoglobin 14.6 g/dl (14.0-18.0); Imm Gran Abs Auto 0.07 X10*3/uL (0.00-0.03); Imm Gran Pct Auto 0.6 % (0.0-0.4); Lymphocytes Absolute Auto 1.4 X10*3/uL (1.2-4.9); Lymphocytes Percent Auto 11.4 % (20-40); Mean Corpuscular HGB Conc 32.8 g/dl (31.0-36.0); Mean Corpuscular Hemoglobin 26.8 pg (27.0-33.0); Mean Corpuscular Volume 81.7 fL (80.0-98.0); Mean Platelet Volume 10.3 fL (9.4-12.4); Monocytes Absolute Auto 0.7 X10*3/uL (0.1-1.2); Monocytes Percent Auto 5.9 % (2-11); Neutrophils Absolute Auto 9.9 x10*3/uL (2.0-8.3); Neutrophils Percent Auto 81.8 % (45-73); Platelet Count 195 X10*3/uL (160-400); Red Blood Count 5.45 X10*6/uL (4.60-5.80); Red Cell Distribution Width 13.6 % (11.0-16.0); White Blood Count 12.1 X10*3/uL (4.8-10.8)
[2023-06-07 17:25] LABS: Alanine Aminotransferase 25 U/L (0-40); Albumin Level 4.4 g/dL (3.5-5.0); Alkaline Phosphatase 59 U/L (39-117); Anion Gap 12 (12-20); Aspartate Amino Transferase 38 U/L (5-37); Bilirubin Direct 0.2 mg/dL (0.0-0.5); Bilirubin Total 0.6 mg/dL (0.0-1.0); Blood Urea Nitrogen 9 mg/dL (9-16); Calcium 9.6 mg/dL (8.4-10.2); Carbon Dioxide 23 mmol/L (22-29); Chloride 110 mmol/L (96-108); Creatinine Clr Calc Pharmacy 97.6; Estimated Glomerular Filt Rate > 60; Glucose Random 92 mg/dL (60-115); Potassium 3.8 mmol/L (3.3-5.1); Sodium 141 mmol/L (135-145); Total Protein 6.7 g/dL (6.5-8.0)
[2023-06-07 17:27] LABS: Ethanol < 10 mg/dL
--- NOTE | 2023-06-07 19:05 | PC.NURSE ---
patient appears to remain at rest at present respirations are even and unlabored patient appears in no distress, disposition just came about, inpatient bed search at present.
--- NOTE | 2023-06-07 19:47 | MHC.CARE ---
CARE Team evaluation complete. Pt will be admitted voluntary inpatient and is on a section 12a. Current POD RN, ED Provider and Pt are aware.
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
[2023-06-08 08:36] VITALS: BP 99/60; PULSE 81; RESP 18; TEMP 37; O2SAT 98
[2023-06-08 09:21] LABS: Estimated Average Glucose 100 mg/dL; Hemoglobin A1c % 5.1 % (<6.0)
[2023-06-08 09:22] LABS: Alanine Aminotransferase 24 U/L (0-40); Albumin Level 4.1 g/dL (3.5-5.0); Alkaline Phosphatase 55 U/L (39-117); Anion Gap 13 (12-20); Aspartate Amino Transferase 34 U/L (5-37); Bilirubin Total 0.8 mg/dL (0.0-1.0); Blood Urea Nitrogen 15 mg/dL (9-16); Calcium 9.4 mg/dL (8.4-10.2); Carbon Dioxide 24 mmol/L (22-29); Chloride 109 mmol/L (96-108); Cholesterol 112 mg/dL (<200); Estimated Glomerular Filt Rate > 60; Glucose Fasting 95 mg/dL (60-99); HDL Cholesterol 40 mg/dL (>40); LDL Cholesterol Calculated 64 mg/dL (<100); Potassium 4.2 mmol/L (3.3-5.1); Sodium 142 mmol/L (135-145); Total Protein 6.3 g/dL (6.5-8.0); Triglycerides 40 mg/dL (<150)
[2023-06-08 09:37] LABS: Thyroid Stimulating Hormone 0.53 uIU/mL (0.32-4.0)
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
[2023-06-08 09:43] LABS: Vitamin B12 426 pg/mL (200-900)
[2023-06-08] MEDS: Lithium Carbonate ER 300 MG TABLET.ER 600 MG PO (20:59)
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
[2023-06-09 09:43] VITALS: BP 98/60; PULSE 83; RESP 16; TEMP 36.6; O2SAT 97
[2023-06-09] MEDS: Lithium Carbonate ER 300 MG TABLET.ER PO (19:49)
[2023-06-09] MEDS: Zolpidem Tartrate 5 MG TABLET 10 MG PO (19:49)
[2023-06-09 19:50] VITALS: BP 108/68; PULSE 78; RESP 18; TEMP 36.6; O2SAT 97
[2023-06-10 08:26] VITALS: BP 115/55; PULSE 66; RESP 18; TEMP 36.6; O2SAT 97
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
[2023-06-10 18:00] VITALS: BP 102/52; PULSE 55; RESP 18; TEMP 37; O2SAT 97
[2023-06-10] MEDS: Lithium Carbonate ER 300 MG TABLET.ER PO (19:56)
[2023-06-10] MEDS: Zolpidem Tartrate 5 MG TABLET 10 MG PO (19:57)
[2023-06-11 08:11] VITALS: BP 115/58; PULSE 75; RESP 16; TEMP 37.1; O2SAT 96
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
[2023-06-11] MEDS: Lithium Carbonate ER 300 MG TABLET.ER PO (20:04)
[2023-06-11] MEDS: hydrOXYzine HCL 25 MG TABLET PO (23:45)
[2023-06-12 08:29] LABS: Lithium 0.16 mmol/L (0.60-1.20)
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
[2023-06-12 08:46] VITALS: BP 102/56; PULSE 73; RESP 16; TEMP 36.7; O2SAT 98
[2023-06-12 17:00] VITALS: BP 109/60; PULSE 69; RESP 16; TEMP 36.7; O2SAT 96
[2023-06-12] MEDS: Lithium Carbonate ER 300 MG TABLET.ER PO (20:51)
[2023-06-12] MEDS: hydrOXYzine HCL 25 MG TABLET PO (20:57)
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
[2023-06-13 08:07] VITALS: BP 111/67; PULSE 70; RESP 16; TEMP 36.7; O2SAT 96
[2023-06-13 18:00] VITALS: BP 115/61; PULSE 85; RESP 18; TEMP 36.4; O2SAT 97
[2023-06-13] MEDS: Lithium Carbonate ER 300 MG TABLET.ER PO (20:14)
[2023-06-13] MEDS: hydrOXYzine HCL 25 MG TABLET PO (20:17)
[2023-06-14 08:18] VITALS: BP 110/71; PULSE 98; RESP 16; TEMP 36.9; O2SAT 98
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
[2023-06-14 18:00] VITALS: BP 106/56; PULSE 80; TEMP 36.3
[2023-06-14] MEDS: hydrOXYzine HCL 25 MG TABLET PO (20:33)
[2023-06-14] MEDS: Lithium Carbonate ER 300 MG TABLET.ER PO (20:33)
[2023-06-15 08:00] VITALS: BP 124/60; PULSE 77; RESP 16; TEMP 36.8; O2SAT 97
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
[2023-06-15 17:34] VITALS: BP 123/74; PULSE 71; TEMP 36.8; O2SAT 98
[2023-06-15] MEDS: hydrOXYzine HCL 25 MG TABLET PO (20:11)
[2023-06-15] MEDS: Lithium Carbonate ER 300 MG TABLET.ER PO (20:12)
[2023-06-16 07:00] VITALS: BMI 29.7
[2023-06-16 08:00] VITALS: BP 107/51; PULSE 73; RESP 16; TEMP 36.6; O2SAT 97
[2023-06-16] MEDS: Paliperidone Palmitate 234 MG/1.5 ML SYRINGE IM (10:20)
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
[2023-06-16 18:00] VITALS: BP 125/63; PULSE 74; RESP 16; TEMP 36.3; O2SAT 99
[2023-06-16] MEDS: hydrOXYzine HCL 25 MG TABLET PO (20:00)
[2023-06-16] MEDS: Lithium Carbonate ER 300 MG TABLET.ER PO (20:00)
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
[2023-06-17 10:26] VITALS: BP 117/59; PULSE 83; RESP 16; TEMP 36.6; O2SAT 99
[2023-06-17 18:00] VITALS: BP 117/70; PULSE 75; RESP 16; TEMP 36.8; O2SAT 98
[2023-06-17] MEDS: hydrOXYzine HCL 25 MG TABLET PO (20:58)
--- NOTE | 2023-06-17 21:00 | PC.NURSE ---
pt refused HS [place].
[2023-06-18 08:40] VITALS: BP 109/66; PULSE 86; RESP 18; TEMP 36.4; O2SAT 99
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
[2023-06-18 18:00] VITALS: BP 116/84; PULSE 88; RESP 16; O2SAT 98
[2023-06-18] MEDS: Zolpidem Tartrate 5 MG TABLET PO (20:11)
[2023-06-19 08:50] VITALS: BP 105/59; PULSE 85; RESP 16; TEMP 35.8; O2SAT 96
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
[2023-06-19 17:12] VITALS: BP 93/51; PULSE 86; RESP 18; TEMP 35.7; O2SAT 98
[2023-06-19] MEDS: Zolpidem Tartrate 5 MG TABLET PO (22:39)
[2023-06-20 09:00] VITALS: BP 129/85; PULSE 100; RESP 16; TEMP 36.1; O2SAT 96
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
[2023-06-20 18:00] VITALS: BP 116/68; PULSE 72; RESP 16; TEMP 36.4; O2SAT 98
[2023-06-20] MEDS: Zolpidem Tartrate 5 MG TABLET PO (20:51)
[2023-06-21 08:00] VITALS: BP 124/71; PULSE 68; RESP 18; TEMP 36.4; O2SAT 98
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
[2023-06-21 15:49] LABS: Neut%MD 70.1 %; WBCANC 9.9 X10*3/uL
[2023-06-21 18:00] VITALS: BP 114/60; PULSE 69; RESP 18; TEMP 36.5; O2SAT 98
[2023-06-21] MEDS: cloZAPine 25 MG TABLET PO (19:01)
[2023-06-21] MEDS: Zolpidem Tartrate 5 MG TABLET PO (19:01)
[2023-06-22 09:56] VITALS: BP 100/60; PULSE 85; RESP 16; TEMP 36.2; O2SAT 97
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
[2023-06-22 18:00] VITALS: BP 110/56; PULSE 75; RESP 17; TEMP 36.5; O2SAT 97
--- NOTE | 2023-06-22 22:38 | PC.NURSE ---
Patient refused his Clozaril 25 mg po. Patient stated It really messed me up . billboard mechanic provider Adele Alvarado APRN notified. No new orders received.
[2023-06-22] MEDS: Zolpidem Tartrate 5 MG TABLET PO (23:08)
[2023-06-23 08:00] VITALS: BP 100/60; PULSE 102; RESP 16; TEMP 36.3; O2SAT 98
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
[2023-06-23 12:04] VITALS: BMI 30.6
[2023-06-23 18:00] VITALS: BP 101/58; PULSE 80; RESP 18; TEMP 36.8; O2SAT 96
[2023-06-23] MEDS: QUEtiapine Fumarate 25 MG TABLET PO (20:20)
[2023-06-23] MEDS: Zolpidem Tartrate 5 MG TABLET PO (20:21)
[2023-06-24 08:05] VITALS: BP 109/58; PULSE 66; RESP 16; TEMP 36.6; O2SAT 98
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
[2023-06-24 17:24] VITALS: BP 126/64; PULSE 92; RESP 16; TEMP 36.2
[2023-06-24] MEDS: QUEtiapine Fumarate 25 MG TABLET PO (19:45)
[2023-06-24] MEDS: Zolpidem Tartrate 5 MG TABLET PO (19:47)
[2023-06-24] MEDS: Clotrimazole 1 % Cream 15 GM TUBE 1 APPL TOPICAL (19:47)
[2023-06-25 08:29] VITALS: BP 107/58; PULSE 62; RESP 16; TEMP 36.7; O2SAT 96
[2023-06-25] MEDS: Clotrimazole 1 % Cream 15 GM TUBE 1 APPL TOPICAL ×2 (08:58→19:57)
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
[2023-06-25 18:00] VITALS: BP 121/61; PULSE 67; RESP 16; TEMP 36.6; O2SAT 97
[2023-06-25] MEDS: Zolpidem Tartrate 5 MG TABLET PO (19:57)
[2023-06-25] MEDS: QUEtiapine Fumarate 25 MG TABLET PO (19:57)
[2023-06-26 09:00] VITALS: BP 99/57; PULSE 60; RESP 16; TEMP 37; O2SAT 98
[2023-06-26] MEDS: Clotrimazole 1 % Cream 15 GM TUBE 1 APPL TOPICAL (09:01)
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
[2023-06-26 18:00] VITALS: BP 100/56; PULSE 82; RESP 18; TEMP 36; O2SAT 96
[2023-06-26] MEDS: QUEtiapine Fumarate 25 MG TABLET PO (20:42)
[2023-06-26] MEDS: Zolpidem Tartrate 5 MG TABLET PO (20:42)
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
[2023-06-27 08:00] VITALS: BP 107/55; PULSE 75; RESP 16; TEMP 36.9; O2SAT 97
[2023-06-27] MEDS: Clotrimazole 1 % Cream 15 GM TUBE 1 APPL TOPICAL ×2 (08:55→20:36)
[2023-06-27] MEDS: Acetaminophen 325 MG TABLET 650 MG PO ×2 (13:22→20:35)
[2023-06-27 18:00] VITALS: BP 116/64; PULSE 73; RESP 16; TEMP 36.7
[2023-06-27] MEDS: QUEtiapine Fumarate 50 MG TABLET PO (20:34)
[2023-06-28 08:09] VITALS: BP 106/58; PULSE 79; RESP 16; TEMP 36.7; O2SAT 96
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
--- NOTE | 2023-06-28 18:30 | PC.NURSE ---
Assumed care of pt 18:30. PT pacing hallway, speech is appropriate, does not appear to be responding to any internal stimuli. Offers no complaints @ this time.
[2023-06-28 18:35] VITALS: BP 111/67; PULSE 75; RESP 16; TEMP 36.6; O2SAT 97
[2023-06-28] MEDS: Zolpidem Tartrate 5 MG TABLET PO (20:01)
[2023-06-28] MEDS: QUEtiapine Fumarate 50 MG TABLET PO (20:01)
[2023-06-28] MEDS: Clotrimazole 1 % Cream 15 GM TUBE 1 APPL TOPICAL (20:04)
[2023-06-29 07:56] VITALS: BP 114/62; PULSE 63; RESP 16; TEMP 36.4; O2SAT 98
[2023-06-29 14:12] LABS: COVID-19 Test Negative (Negative); IDNOW Serial# 9DB6401D
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
[2023-06-29] MEDS: Clotrimazole 1 % Cream 15 GM TUBE 1 APPL TOPICAL (16:19)
[2023-06-29 18:00] VITALS: BP 112/68; PULSE 77; RESP 16; TEMP 36.3; O2SAT 97
[2023-06-29] MEDS: Zolpidem Tartrate 5 MG TABLET PO (20:34)
[2023-06-29] MEDS: QUEtiapine Fumarate 50 MG TABLET PO (20:34)
[2023-06-30 08:29] VITALS: BP 111/64; PULSE 75; RESP 16; TEMP 36.3; O2SAT 96
== END 2023-06-30 10:35 | disposition home or self-care (01) | DRG 750 ==
LOC: HO.ED 21:13 → HO.PM5 23:53
PROVIDERS: Admitting Provider Social Worker; Emergency Provider Emergency Medicine; Visit Provider Psychiatry & Neurology Psychiatry
DX: F25.0 Schizoaffective disorder, bipolar type (principal); F60.2 Antisocial personality disorder; Z20.822 Contact with and (suspected) exposure to COVID-19; Z87.891 Personal history of nicotine dependence; Z79.899 Other long term (current) drug therapy
CPT/HCPCS: 36415; 80048; 80053; 80061; 80076; 80178; 80299; 80307; 81001; 82607; 83036; 84443; 85025; 85048; 87635; 99285; J2426; S9485

== ENCOUNTER → 2023-06-07 23:37 | Outpatient (BNV) | payer OTHER, SELFPAY | PROVIDERS: Admitting Provider Social Worker; Emergency Provider Emergency Medicine; Visit Provider Psychiatry & Neurology Psychiatry | DX: F25.0 Schizoaffective disorder, bipolar type (principal); F60.2 Antisocial personality disorder | CPT/HCPCS: 99231; 99232 ==

== ENCOUNTER 2023-07-26 15:28 | Inpatient (IN) | payer OTHER, SELFPAY ==
[2023-07-26 15:39] VITALS: BP 117/73; BP 128/90; PULSE 104; PULSE 89; RESP 18; TEMP 36.7; O2SAT 97
[2023-07-26 16:07] LABS: MANUAL DIFF FLAG NO
[2023-07-26 16:09] LABS: Basophils Percent Auto 0.3 % (0-2); Eosinophils Percent Auto 0.1 % (0-4); Hematocrit 46.7 % (42.0-52.0); Hemoglobin 15.7 g/dl (14.0-18.0); Imm Gran Abs Auto 0.04 X10*3/uL (0.00-0.03); Imm Gran Pct Auto 0.4 % (0.0-0.4); Lymphocytes Absolute Auto 1.4 X10*3/uL (1.2-4.9); Lymphocytes Percent Auto 15.7 % (20-40); Mean Corpuscular HGB Conc 33.6 g/dl (31.0-36.0); Mean Corpuscular Hemoglobin 26.2 pg (27.0-33.0); Monocytes Absolute Auto 0.5 X10*3/uL (0.1-1.2); Monocytes Percent Auto 5.2 % (2-11); Neutrophils Absolute Auto 7.2 x10*3/uL (2.0-8.3); Neutrophils Percent Auto 78.3 % (45-73); Platelet Count 216 X10*3/uL (160-400); Red Blood Count 5.99 X10*6/uL (4.60-5.80); Red Cell Distribution Width 13.6 % (11.0-16.0); White Blood Count 9.2 X10*3/uL (4.8-10.8)
[2023-07-26 16:10] LABS: Appearance Urine Clear; Color Urine Dark Yellow; Glucose Urine UA Negative (Negative); Leukocyte Esterase Urine Negative (Negative); Nitrite Urine Negative (Negative); PH 5.5 (5.0-9.0); Specific Gravity - Urine >= 1.030 (1.005-1.025); Urine Blood Negative (Negative); Urine Ketones 40 mg/dL (Negative); Urine Protein Negative (Neg-Trace)
[2023-07-26 16:25] LABS: Amphetamine Screen Urine Not Detected (Not Detect); Barbiturates, Urine Not Detected (Not Detect); Benzodiazepines Screen Urine Not Detected (Not Detect); Cannabinoid Screen Urine POSITIVE (Not Detect); Cocaine Screen Urine Not Detected (Not Detect); Fentanyl, urine Not Detected (Not Detect); Opiate Screen Urine Not Detected (Not Detect); Phencyclidine Screen Urine Not Detected (Not Detect)
--- NOTE | 2023-07-26 16:27 | MHC.CARE ---
Tara gurrola from [facility] [place] 2[place] [facility] called to report Alessandra is paranoid, psychotic and unwilling to be assessed at this time.n Phone number is [phone]. Pt was not evaluated in the community.
--- NOTE | 2023-07-26 16:28 | PC.NURSE ---
pt refusing EKG
[2023-07-26 16:39] LABS: Alanine Aminotransferase 18 U/L (0-40); Albumin Level 4.7 g/dL (3.5-5.0); Alkaline Phosphatase 71 U/L (39-117); Anion Gap 16 (12-20); Aspartate Amino Transferase 25 U/L (5-37); Bilirubin Direct 0.4 mg/dL (0.0-0.5); Bilirubin Total 1.1 mg/dL (0.0-1.0); Blood Urea Nitrogen 16 mg/dL (9-16); Calcium 9.8 mg/dL (8.4-10.2); Carbon Dioxide 20 mmol/L (22-29); Chloride 105 mmol/L (96-108); Creatinine Clr Calc Pharmacy 94.4; Estimated Glomerular Filt Rate > 60; Ethanol < 10 mg/dL; Glucose Random 84 mg/dL (60-115); Potassium 3.9 mmol/L (3.3-5.1); Sodium 137 mmol/L (135-145); Total Protein 7.4 g/dL (6.5-8.0)
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
[2023-07-26 16:57] LABS: Influenza A PCR NEGATIVE (Negative); Influenza B PCR NEGATIVE (Negative); Resp Syncy Virus RNA Qual PCR NEGATIVE (Negative); SARS COV2 PCR INHOUSE NEGATIVE (Negative)
--- NOTE | 2023-07-26 17:22 | PC.NURSE ---
Staff member Mari from [facility] (painting supervisor) called ED BH Pod requesting update regarding her client, Asif. I told Mari that we'd be happy to call her back. Call back number . Asif is resting comfortably at this time. Respirations even & unlabored. Care and monitoring ongoing by this RN.
--- NOTE | 2023-07-26 18:47 | PHA.MEDREC ---
Pharmacy Consult ? Medication Reconciliation Pharmacy has completed the medication reconciliation.Spoke with patient and confirmed medications, however didnt seem confident. Of the medications reported, they were prescribed on discharge from inpatient psych unit on 07/01/23. unable to confirm if medications were picked up as [place] is closed
--- NOTE | 2023-07-26 19:58 | MHC.EDTECH ---
Patient continues to refuse EKG at this time. Nurse and MHT requested EKG.
[2023-07-26] MEDS: Zolpidem Tartrate 5 MG TABLET PO (22:52)
--- NOTE | 2023-07-26 23:53 | MHC.CARE ---
Pt was given ambien to help him sleep by the time t/w was available to see him. Pt will have to wait until the morning hours to be seen now.
[2023-07-27 06:14] VITALS: BP 102/57; PULSE 70; RESP 17; TEMP 37; O2SAT 98
--- NOTE | 2023-07-27 06:15 | PC.NURSE ---
Patient slept through the night, Ambien 5 mg pO administered as ordered with + effect, med rec completed/pending provider's approval, care consult ordered/pending evaluation, VSS, refused EKG, no behavior issues, will continue to monitor.
--- NOTE | 2023-07-27 07:31 | PC.NURSE ---
PT IS A/O X 4 NO SOB/BASIA NOTED SPEAKS IN FULL SENTENCES. PT DENIES ANY PAIN/DISC. PT AMB (I) TO RN STATION AND BTB. PT DENIES ANY SI/HI. WILL CONTINUE TO MONITOR.
[2023-07-27 07:40] VITALS: BP 129/69; PULSE 89; RESP 17; TEMP 36.8; O2SAT 96
--- NOTE | 2023-07-27 12:32 | PC.NURSE ---
PT IS IN ROOM RESTING. RESP EVEN AND UNLABORED.
--- NOTE | 2023-07-27 13:23 | PM.EVENT ---
Event Note Date of Service: 07/27/23 Event Note: ordered Invega Sustenna 234mg IM q28d, pt's last COKER was 06/29/2023. Time Spent With Patient Time: Total time managing care of this patient today ____ minutes.
[2023-07-27 13:53] VITALS: RESP 18
--- NOTE | 2023-07-27 14:26 | PC.NURSE ---
PT REFUSED HIS INVEGA 234MG MD VENU AWARE.
--- NOTE | 2023-07-27 15:54 | MHC.CARE ---
RAD Team conducted a statewide bed search for this pt. Referral was sent to [facility], [facility], [place], [place], [facility], [facility], [facility], [facility] reviewing. RAD Team will follow up
--- NOTE | 2023-07-27 17:32 | PC.NURSE ---
Assumed care of patient at 1500, patient is ambulatory around BH pod with steady gait, calm and cooperative in no apparent distress. Pt offers no complaints to this RN, understanding of plan of care. Declined Invega from previous RN. Pt is on Sec 12 and plan of care is for in bedsearch
[2023-07-27 23:53] VITALS: BP 99/55; PULSE 55; RESP 17; TEMP 37.2; O2SAT 97
--- NOTE | 2023-07-28 00:38 | PC.NURSE ---
patient appears to remain at rest, declined meds, sometimes expresses desire to not take his meds, overall calm and cooperative, maintains sfe behavior.
--- NOTE | 2023-07-28 06:55 | PC.NURSE ---
Assumed care of patient at 0700, patient ambulating with steady gait around BH pod, now resting on stretcher, respirations even and unlabored, no apparent distress. Continue plan of care for inpt bedsearch
[2023-07-28 07:28] VITALS: BP 102/54; PULSE 57; RESP 17; TEMP 36.8; O2SAT 96
--- NOTE | 2023-07-28 08:20 | MHC.CARE ---
CARE Team left VM with Tara [phone], requesting copy of sarah order
--- NOTE | 2023-07-28 08:22 | MHC.CARE ---
CARE Team left VM with Phylicia Tsang, Engine Research Engineer ([phone]) for copy of sarah [place]
--- NOTE | 2023-07-28 10:18 | PC.NURSE ---
This RN presented patient with [facility] order reminder stating that it is for medications. Patient verbalizes that he has concerns around taking the Invega. He voices concern that he is allergic to the medication as he feels his whole body get warm and sometimes feels as though my throat is closing even though it isnt . He also reports that he gets a lump at the injection site. DRAFTER (CAD) ELECTRONIC [place] aware, states she will go speak with the patient about these concerns. Pt is aware that because the medication is included under yonathan order, he does not have a say in whether he receives the medication or not
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
[2023-07-28] MEDS: Paliperidone Palmitate 234 MG/1.5 ML SYRINGE IM (11:10)
--- NOTE | 2023-07-28 11:14 | PC.NURSE ---
This RN brought Invega injection in for patient, pt discussed concerns with patient once again, this RN validated patient's feelings but did reiterate the need for the medication. Pt verbalizes agreement and picked the location of injection. Pt willingly took injection without issue. Pt thanked this RN for understanding his concerns. Pt remained calm and cooperative without issue
--- NOTE | 2023-07-28 13:10 | PC.NURSE ---
Pt reports he feels more manic than before but he states that the jody is manageable at this time . He states to this RN I feel less depressed which I guess is good, but I do feel the jody coming back which I don't enjoy . This RN validated patient's feelings. Pt ambulated back to room to eat lunch without issue
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
[2023-07-28 18:00] VITALS: BP 112/67; PULSE 70; RESP 18; TEMP 36.8; O2SAT 98
[2023-07-28 18:53] VITALS: BMI 30.2
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
[2023-07-28] MEDS: QUEtiapine Fumarate 50 MG TABLET PO (21:08)
[2023-07-29 08:05] VITALS: BP 92/60; PULSE 67; RESP 16; TEMP 36.8; O2SAT 95
[2023-07-29 16:00] VITALS: BP 119/57; PULSE 77; RESP 15; TEMP 36.6; O2SAT 97
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
[2023-07-30 08:08] VITALS: BP 122/56; PULSE 71; RESP 15; TEMP 36.6; O2SAT 99
--- NOTE | 2023-07-30 13:23 | P.PNPSI_ITS ---
Subjective Subjective Date of Service: 07/30/23 Reason For Visit: Schizoaffective Disorder Interim History: 38 yo WM with schizoaffective disorder back on his medication and feeling back to his baseline- reports doing ok and having no side effects of medication- nursing reports he is sleeping and in good behavioral control He is fixated on making some changes in his [facility] team thru [facility] feels like he would like to have a more response team - around potential changes in his life and they have not been responsive to him. Medication Compliance: Yes Side effects from medications: No Attending Groups: Yes Review of Systems Acute medical concerns: No Medical Review of Systems: unchanged Mental Status Exam Mental Status Exam Patient Appearance: Well Grooomed and Appropriate Patient Orientation: Person, Place, Time and Situation Level of Consciousness: Awake Patient Behavior: Appropriate, Cooperative and Good Eye Contact Mood Description: Calm Affect Description: Calm Patient Cognition Impaired: No Ability to Follow Directions: Good Speech Pattern: Clear Hallucinations: None Thought Process: Intact and Goal Oriented Thought Content: positive for Intact Judgement: Fair Diagnostics Vital Signs (24Hr): Vital Signs - 24 hr 07/29/23 16:00 07/30/23 08:08 Temperature 97.9 F 98 F Pulse Rate 77 71 Respiratory Rate 15 15 Blood Pressure 119/57 L 122/56 L Pulse Oximetry 97 99 Oxygen Delivery Method Room Air Room Air BMI result Body Mass Index 30.2 Labs 07/26/23 16:01 07/26/23 16:01 Medications Medications Current Medications Acetaminophen (Acetaminophen 325 Mg Tablet) 650 mg PO Q6H PRN PRN Reason: Headache/Pain Mild Scale (1-3) Al Hydroxide/Mg Hydroxide (Magnesium Hydrox/Alum Hydrox 30 Ml Oral.Susp) 30 ml PO Q6H PRN PRN Reason: Heartburn/Nausea Hydroxyzine HCl (Hydroxyzine Hcl 25 Mg Tablet) 25 mg PO Q6H PRN PRN Reason: Anxiety Magnesium Hydroxide (Milk Of Magnesia 30 Ml Oral.Susp) 30 ml PO DAILY PRN PRN Reason: Constipation Paliperidone Palmitate (Paliperidone Palmitate 234 Mg/1.5 Ml Syringe) 234 mg IM Q28D [facility] Last Admin: 07/28/23 11:10 Dose: 234 mg Quetiapine Fumarate (Quetiapine Fumarate 50 Mg Tablet) 50 mg PO BEDTIME [facility] Last Admin: 07/29/23 19:54 Dose: 50 mg Quetiapine Fumarate (Quetiapine Fumarate 25 Mg Tablet) 25 mg PO BID PRN PRN Reason: agitation Trazodone HCl (Trazodone Hcl 50 Mg Tablet) 50 mg PO BEDTIME MRX1 PRN PRN Reason: Insomnia Zolpidem Tartrate (Zolpidem Tartrate 5 Mg Tablet) 5 mg PO BEDTIME PRN PRN Reason: insomnia Allergies Allergies Allergy/AdvReac Type Severity Reaction Status Date / Time haloperidol [From HALDOL] Allergy Severe DYSTONIA Verified 06/07/23 16:30 ziprasidone [From GEODON] Allergy Severe DYSTONIA Verified 06/07/23 16:30 olanzapine Allergy Unknown Verified 06/07/23 16:30 oxycodone Allergy itchy and Verified 06/07/23 16:30 burning Assessment & Plan Assessment & Plan (1) Schizoaffective disorder, bipolar type: Status: Acute Code(s): F25.0 - Schizoaffective disorder, bipolar type Plan 07/28: 38 yo male, history of schizoaffective disorder, bipolar type. Pt non compliant with Wolff order in the community with decompensation. Plan: Melo Allred given in ER Discuss a med plan with pt he is able to work with. ?Need for longer term in pt stay again to obtain a sustained period of compliance/stability. Collateral contacts Patient educated on: medication risk/benefits Informed Consent: understands Reason for continued inpatient stay Substantial Risk for: rapid decompensation Time Spent With Patient Time: Total time managing care of this patient today ____ minutes.
--- NOTE | 2023-07-30 13:58 | PC.NURSE ---
Pt refused the EKG ordered for today. I don't know why they are still trying to get that information from me, it is not needed any longer, it's old .
[2023-07-30 17:20] VITALS: BP 123/57; PULSE 67; RESP 16; TEMP 36.2; O2SAT 97
[2023-07-30] MEDS: QUEtiapine Fumarate 50 MG TABLET PO ×2 (19:54→20:43)
[2023-07-31 07:45] VITALS: BP 112/62; PULSE 66; RESP 16; TEMP 36.4; O2SAT 98
--- NOTE | 2023-07-31 11:07 | HO.PSYCHPN ---
Subjective Subjective Date of Service: 07/31/23 Reason For Visit: Schizoaffective Disorder Subjective Notes: Conditional Voluntary Healthcare Proxy: No Guardianship: No Medical Problems Affecting Mental Status: No Interim History: 38 yo WM presents calm and focused on issues with his [facility] team- feeling they are not responsive- re rides and helping him get a job- He is taking medications and agrees to EKG now that he knows it is to check cardiac conduction on medication- Sleep ok, eating ok - calmest I have ever seen him- over the years Medication Compliance: Yes Side effects from medications: No Attending Groups: Intermittent Review of Systems Acute medical concerns: No Medical Review of Systems: unchanged Mental Status Exam Mental Status Exam Patient Appearance: Well Grooomed and Appropriate Patient Orientation: Person, Place, Time and Situation Level of Consciousness: Awake Patient Behavior: Appropriate, Cooperative and Good Eye Contact Mood Description: Calm Affect Description: Calm Patient Cognition Impaired: No Ability to Follow Directions: Good Speech Pattern: Clear Hallucinations: None Thought Process: Intact and Goal Oriented Thought Content: positive for Intact Judgement: Fair Diagnostics Vital Signs (24Hr): Vital Signs - 24 hr 07/30/23 17:20 Temperature 97.2 F Pulse Rate 67 Respiratory Rate 16 Blood Pressure 123/57 L Pulse Oximetry 97 Oxygen Delivery Method Room Air BMI result Body Mass Index 30.2 Labs 07/26/23 16:01 07/26/23 16:01 Medications Medications Current Medications Acetaminophen (Acetaminophen 325 Mg Tablet) 650 mg PO Q6H PRN PRN Reason: Headache/Pain Mild Scale (1-3) Al Hydroxide/Mg Hydroxide (Magnesium Hydrox/Alum Hydrox 30 Ml Oral.Susp) 30 ml PO Q6H PRN PRN Reason: Heartburn/Nausea Hydroxyzine HCl (Hydroxyzine Hcl 25 Mg Tablet) 25 mg PO Q6H PRN PRN Reason: Anxiety Magnesium Hydroxide (Milk Of Magnesia 30 Ml Oral.Susp) 30 ml PO DAILY PRN PRN Reason: Constipation Paliperidone Palmitate (Paliperidone Palmitate 234 Mg/1.5 Ml Syringe) 234 mg IM Q28D [facility] Last Admin: 07/28/23 11:10 Dose: 234 mg Quetiapine Fumarate (Quetiapine Fumarate 50 Mg Tablet) 50 mg PO BEDTIME [facility] Last Admin: 07/30/23 20:43 Dose: 50 mg Quetiapine Fumarate (Quetiapine Fumarate 25 Mg Tablet) 25 mg PO BID PRN PRN Reason: agitation Trazodone HCl (Trazodone Hcl 50 Mg Tablet) 50 mg PO BEDTIME MRX1 PRN PRN Reason: Insomnia Zolpidem Tartrate (Zolpidem Tartrate 5 Mg Tablet) 5 mg PO BEDTIME PRN PRN Reason: insomnia Allergies Allergies Allergy/AdvReac Type Severity Reaction Status Date / Time haloperidol [From HALDOL] Allergy Severe DYSTONIA Verified 06/07/23 16:30 ziprasidone [From GEODON] Allergy Severe DYSTONIA Verified 06/07/23 16:30 olanzapine Allergy Unknown Verified 06/07/23 16:30 oxycodone Allergy itchy and Verified 06/07/23 16:30 burning Assessment & Plan Assessment & Plan (1) Schizoaffective disorder, bipolar type: Status: Acute Code(s): F25.0 - Schizoaffective disorder, bipolar type Plan 07/28: 38 yo male, history of schizoaffective disorder, bipolar type. Pt non compliant with Wolff order in the community with decompensation. Plan: Melo Allred given in ER Discuss a med plan with pt he is able to work with. ?Need for longer term in pt stay again to obtain a sustained period of compliance/stability. Collateral contacts 07/31/23 CTP Patient educated on: medication risk/benefits (need for ekg for cardiac conduction= ) Informed Consent: understands Reason for continued inpatient stay Substantial Risk for: rapid decompensation Time Spent With Patient Time: Total time managing care of this patient today ____ minutes.
[2023-07-31 17:26] VITALS: BP 124/62; PULSE 78; RESP 15; TEMP 36.4; O2SAT 98
[2023-07-31] MEDS: QUEtiapine Fumarate 50 MG TABLET PO (19:54)
[2023-08-01 08:09] VITALS: BP 107/56; PULSE 98; RESP 16; TEMP 36.6; O2SAT 97
--- NOTE | 2023-08-01 09:00 | ECG_ITS ---
Test Reason : QTC CHECK Blood Pressure : / mmHG Vent. Rate : 062 BPM Atrial Rate : 062 BPM P-R Int : 166 ms QRS Dur : 112 ms QT Int : 394 ms P-R-T Axes : 055 -19 012 degrees QTc Int : 399 ms Normal sinus rhythm Minimal voltage criteria for LVH, may be normal variant ( [place] product ) Borderline ECG When compared with ECG of 22-MAR-2023 13:32, No significant change was found Referred By: Ngozi Vasquez Electronically Signed By:Jean Paul Robison
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
--- NOTE | 2023-08-01 10:54 | PC.NURSE ---
Pt signed 3-day on 08/01/2023 that will be up on 08/04/23
[2023-08-01 16:29] VITALS: BP 107/65; PULSE 78; RESP 20; TEMP 36.3; O2SAT 98
[2023-08-01] MEDS: QUEtiapine Fumarate 50 MG TABLET PO (21:12)
[2023-08-02 08:05] VITALS: BP 109/57; PULSE 62; RESP 16; TEMP 36.4; O2SAT 97
--- NOTE | 2023-08-02 09:57 | P.PNPSI_ITS ---
Subjective Subjective Date of Service: 08/02/23 Reason For Visit: Schizoaffective Disorder Interim History: met with patient; discussed with team pt remains at baseline; calm, cooperative, polite; appropriate with peers and staff. No AVH. Pt reiterates he plans to continue taking Seroquel post discharge again saying he does better on it overall. He also understands that taking this med may be what keeps him out of the hospital which he wants; and he does not want to get evicted from his apartment. Pt has been in hospital for almost a week; he got dose of INvega Sustenna and has been taking Seroquel on his own, without prompting. discussed his history and pt shared about his relationship with his sister and other childhood events. Mental Status Exam Mental Status Exam Narrative: Pt is alert and oriented; behavior is cooperative, friendly and calm; patient is not in distress; dressed in casual attire, scruffy with unkempt hair but adequate hygiene; mood is described as good and affect congruent; eye contact appropriate; Speech is normal rate, volume and prosody and not pressured; no psychomotor agitation/retardation present; thought process is primarily goal directed, can get circumstantial/tangential; Thought content is on treatment; relationship with [facility] staff, on various baseline delusional memories; otherwise pertinent to relevant topics; denies any SI/HI. Currently denies AVH and There is no evidence of perceptual disturbance. Patients insight and judgment impaired but adequate and at baseline Diagnostics Vital Signs (24Hr): Vital Signs - 24 hr 08/01/23 16:29 Temperature 97.3 F Pulse Rate 78 Respiratory Rate 20 Blood Pressure 107/65 Pulse Oximetry 98 Oxygen Delivery Method Room Air BMI result Body Mass Index 30.2 Labs 07/26/23 16:01 07/26/23 16:01 Medications Medications Current Medications Acetaminophen (Acetaminophen 325 Mg Tablet) 650 mg PO Q6H PRN PRN Reason: Headache/Pain Mild Scale (1-3) Al Hydroxide/Mg Hydroxide (Magnesium Hydrox/Alum Hydrox 30 Ml Oral.Susp) 30 ml PO Q6H PRN PRN Reason: Heartburn/Nausea Hydroxyzine HCl (Hydroxyzine Hcl 25 Mg Tablet) 25 mg PO Q6H PRN PRN Reason: Anxiety Magnesium Hydroxide (Milk Of Magnesia 30 Ml Oral.Susp) 30 ml PO DAILY PRN PRN Reason: Constipation Paliperidone Palmitate (Paliperidone Palmitate 234 Mg/1.5 Ml Syringe) 234 mg IM Q28D COUNTS INCLUDE 234 BEDS AT THE [facility] Last Admin: 07/28/23 11:10 Dose: 234 mg Quetiapine Fumarate (Quetiapine Fumarate 50 Mg Tablet) 50 mg PO BEDTIME COUNTS INCLUDE 234 BEDS AT THE [facility] Last Admin: 08/01/23 21:12 Dose: 50 mg Quetiapine Fumarate (Quetiapine Fumarate 25 Mg Tablet) 25 mg PO BID PRN PRN Reason: agitation Trazodone HCl (Trazodone Hcl 50 Mg Tablet) 50 mg PO BEDTIME MRX1 PRN PRN Reason: Insomnia Zolpidem Tartrate (Zolpidem Tartrate 5 Mg Tablet) 5 mg PO BEDTIME PRN PRN Reason: Insomnia Allergies Allergies Allergy/AdvReac Type Severity Reaction Status Date / Time haloperidol [From HALDOL] Allergy Severe DYSTONIA Verified 06/07/23 16:30 ziprasidone [From GEODON] Allergy Severe DYSTONIA Verified 06/07/23 16:30 olanzapine Allergy Unknown Verified 06/07/23 16:30 oxycodone Allergy itchy and Verified 06/07/23 16:30 burning Assessment & Plan Assessment & Plan (1) Schizoaffective disorder, bipolar type: Status: Acute Code(s): F25.0 - Schizoaffective disorder, bipolar type Plan 38 yo male, history of schizoaffective disorder, bipolar type. Pt non compliant with Wolff order in the community with decompensation. 3/4 pt calm, polite, organized, with good behavioral and impulse control, appropriate with peers and staff and tolerating a roommate. Pt appears to be at baseline (which includes some chronic delusional memories about his past). He is taking Seroquel of own volition and volunteers that he's starting to realize things go better for him overall when he takes it consistently. He even shared that despite some perceived side-effects (feels high for 5 minutes; eyes get red) the benefit is worth it overall. -will continue to monitor, but based on report, it seems that Seroquel 50mg qhs is enough to keep him stable in community (no problems w/ neighbors for first few days post discharge either while he was continuing on Seroquel or it remained in his system from taking it on unit). If he continues to adhere to this med regimen, video game script writer finds it premature to enforce other aspects of Wolff Order. 08/01 pt remains at baseline; calm, cooperative, polite; appropriate with peers and staff and in good behavioral and impulse control. No AVH. Pt reiterates that he plans to continue taking Seroquel post discharge, again saying he does better on it overall. He also understands that taking this med may be what keeps him out of the hospital which he wants. Prior to admission, pt was not acting in an unsafe way; he has been in hospital for almost a week during which time he got his dose of INvega Sustenna and has been taking Seroquel on his own, without prompting. -It seems that Seroquel 50mg qhs is enough to eliminate problematic AH and adequate to help pt remain stable in the community. At this time it is writers opinion that no further medication management is warranted. Pt has 3 day notice due and he is at baseline. He is not in imminent risk for harm to self or others and at this time does not require longer inpt stay. Of course pt's stability in the community requires continued med adherence (of which pt reports he will do). If patient becomes unable/unwilling to remain adherent and returns to hospital, will at that time consider further med changes per Wolff. -will discuss dispo with outpt team Plan: 3 day Invega Sustenna 234mg e1encoc given on seroquel 50mg qhs Discuss a med plan with pt he is able to work with. ?Need for longer term in pt stay again to obtain a sustained period of compliance/stability. Collateral contacts Patient educated on: diagnosis, medication risk/benefits and therapeutic strategies Informed Consent: understands, does not understand and further education needed Reason for continued inpatient stay Substantial Risk for: stable for discharge Time Spent With Patient Time: Total time managing care of this patient today ____ minutes.
[2023-08-02 17:06] VITALS: BP 107/54; PULSE 63; RESP 18; TEMP 36.7; O2SAT 98
[2023-08-02] MEDS: QUEtiapine Fumarate 50 MG TABLET PO (22:06)
[2023-08-03 08:15] VITALS: BP 100/58; PULSE 71; RESP 16; TEMP 36.5; O2SAT 97
--- NOTE | 2023-08-03 09:10 | P.PNPSI_ITS ---
Subjective Subjective Date of Service: 08/03/23 Reason For Visit: Schizoaffective Disorder Subjective Notes: 3 Day Interim History: Reviewed with Dr. Conway. Social, friendly, calm. Pt reports feeling good today; pt stated, I'm feeling ready to go. I'm going to go back to my apartment and keep taking my medication. I want to stay out of the hospital but I might need to come back if I'm depressed . Pt reports he plans on following up with his outpatient providers. denies SI/HI/VH/AH. Medication Compliance: Yes Side effects from medications: No Attending Groups: Yes Review of Systems Constitutional: Reports as per HPI Eyes: Reports as per HPI Reports as per HPI Cardiovascular: Reports as per HPI Respiratory: Reports as per HPI Gastrointestinal: Reports as per HPI Genitourinary: Reports as per HPI Musculoskeletal: Reports as per HPI Skin/Breast: Reports as per HPI Reports as per HPI Psychiatric: Reports as per HPI Endocrine: Reports as per HPI Hematologic/Lymphatic: Reports as per HPI Allergic/Immunologic: Reports as per HPI Mental Status Exam Mental Status Exam Narrative: Pt is alert and oriented; behavior is cooperative, friendly and calm; dressed in casual attire; mood is described as good ; eye contact appropriate; Speech is normal rate, volume and prosody and not pressured; thought process is organized; Thought content is on discharge; denies SI/HI/VH/AH. Diagnostics Vital Signs (24Hr): Vital Signs - 24 hr 08/02/23 17:06 Temperature 98.1 F Pulse Rate 63 Respiratory Rate 18 Blood Pressure 107/54 L Pulse Oximetry 98 Oxygen Delivery Method Room Air BMI result Body Mass Index 30.2 Labs 07/26/23 16:01 07/26/23 16:01 Medications Medications Current Medications Acetaminophen (Acetaminophen 325 Mg Tablet) 650 mg PO Q6H PRN PRN Reason: Headache/Pain Mild Scale (1-3) Al Hydroxide/Mg Hydroxide (Magnesium Hydrox/Alum Hydrox 30 Ml Oral.Susp) 30 ml PO Q6H PRN PRN Reason: Heartburn/Nausea Hydroxyzine HCl (Hydroxyzine Hcl 25 Mg Tablet) 25 mg PO Q6H PRN PRN Reason: Anxiety Magnesium Hydroxide (Milk Of Magnesia 30 Ml Oral.Susp) 30 ml PO DAILY PRN PRN Reason: Constipation Paliperidone Palmitate (Paliperidone Palmitate 234 Mg/1.5 Ml Syringe) 234 mg IM Q28D [facility] Last Admin: 07/28/23 11:10 Dose: 234 mg Quetiapine Fumarate (Quetiapine Fumarate 50 Mg Tablet) 50 mg PO BEDTIME [facility] Last Admin: 08/02/23 22:06 Dose: 50 mg Quetiapine Fumarate (Quetiapine Fumarate 25 Mg Tablet) 25 mg PO BID PRN PRN Reason: agitation Trazodone HCl (Trazodone Hcl 50 Mg Tablet) 50 mg PO BEDTIME MRX1 PRN PRN Reason: Insomnia Zolpidem Tartrate (Zolpidem Tartrate 5 Mg Tablet) 5 mg PO BEDTIME PRN PRN Reason: Insomnia Allergies Allergies Allergy/AdvReac Type Severity Reaction Status Date / Time haloperidol [From HALDOL] Allergy Severe DYSTONIA Verified 06/07/23 16:30 ziprasidone [From GEODON] Allergy Severe DYSTONIA Verified 06/07/23 16:30 olanzapine Allergy Unknown Verified 06/07/23 16:30 oxycodone Allergy itchy and Verified 06/07/23 16:30 burning Assessment & Plan Assessment & Plan (1) Schizoaffective disorder, bipolar type: Status: Acute Code(s): F25.0 - Schizoaffective disorder, bipolar type Plan 38 yo male, history of schizoaffective disorder, bipolar type. Pt non compliant with Wolff order in the community with decompensation. 3/4 pt calm, polite, organized, with good behavioral and impulse control, appropriate with peers and staff and tolerating a roommate. Pt appears to be at baseline (which includes some chronic delusional memories about his past). He is taking Seroquel of own volition and volunteers that he's starting to realize things go better for him overall when he takes it consistently. He even shared that despite some perceived side-effects (feels high for 5 minutes; eyes get red) the benefit is worth it overall. -will continue to monitor, but based on report, it seems that Seroquel 50mg qhs is enough to keep him stable in community (no problems w/ neighbors for first few days post discharge either while he was continuing on Seroquel or it remained in his system from taking it on unit). If he continues to adhere to this med regimen, script writer finds it premature to enforce other aspects of Wolff Order. 3/5 pt remains at baseline; calm, cooperative, polite; appropriate with peers and staff. No AVH. Pt reiterates he plans to continue taking Seroquel post discharge again saying he does better on it overall. He also understands that taking this med may be what keeps him out of the hospital which he wants. Pt has been in hospital for almost a week; he got dose of INvega Sustenna and has been taking Seroquel on his own, without prompting. -at this time it seems that Seroquel dose is enough eliminate problematic AH and adequate to help pt remain stable in the community. At this time it is writers opinion that no further medication management is warranted. Pt has 3 day notice due and he is at baseline. He is not in imminent risk for harm to self or others and at this time does not require longer inpt stay. Of course 08/02: continue current tx plan. Plan: 3 day Invega Sustenna 234mg [id number] given on seroquel 50mg qhs Discuss a med plan with pt he is able to work with. ?Need for longer term in pt stay again to obtain a sustained period of compliance/stability. Collateral contacts Patient educated on: diagnosis and medication risk/benefits Informed Consent: understands Reason for continued inpatient stay Substantial Risk for: med/psych decompensation Time Spent With Patient Time: Total time managing care of this patient today _20___ minutes.
[2023-08-03 17:10] VITALS: BP 109/69; PULSE 87; TEMP 36.6
[2023-08-03] MEDS: QUEtiapine Fumarate 50 MG TABLET PO (20:02)
[2023-08-04 09:14] VITALS: BP 109/59; PULSE 75; RESP 16; TEMP 36.5; O2SAT 97
--- NOTE | 2023-08-04 09:51 | P.DS_ITS ---
DS: Providers Provider Date of Service: 08/04/23 Date of admission: 07/28/23 15:45 Date of discharge: 08/04/23 Primary care physician: Unknown Physician Attending physician on admission: Gama Bird Attending physician on discharge: Gama Bird DS: Diagnosis Discharge Diagnosis (1) Schizoaffective disorder, bipolar type: Status: Acute DS: Medications Discharge Medications Home Medications: Previous Rx's Medication Instructions Recorded quetiapine 25 mg tablet (Seroquel) 25 mg PO BID PRN agitation 30 days 06/29/23 #30 tabs zolpidem 5 mg tablet 5 mg PO BEDTIME PRN insomnia 30 06/29/23 days #30 tabs paliperidone palmitate 234 mg/1.5 234 mg (1.5 mL) IM Q21D 21 days 08/04/23 mL intramuscular syringe (Invega #1.5 mL Sustenna) quetiapine 50 mg tablet 50 mg PO BEDTIME 30 days #30 tabs 08/04/23 Mental Status Exam Mental Status Exam Narrative: Pt is alert and oriented; behavior is cooperative, friendly and calm; patient is not in distress; dressed in casual attire, scruffy with unkempt hair but adequate hygiene; mood is described as good and affect congruent; eye contact appropriate; Speech is normal rate, volume and prosody and not pressured; no psychomotor agitation/retardation present; thought process is primarily goal directed, can get circumstantial/tangential; Thought content is on treatment; relationship with [facility] staff, on various baseline delusional memories; otherwise pertinent to relevant topics; denies any SI/HI. Currently denies AVH and There is no evidence of perceptual disturbance. Patients insight and judgment impaired but adequate and at baseline DS: Summary Hospital Course Hospital Course: 38 yo male, history of schizoaffective disorder, bipolar type. Pt non compliant with Wolff order in the community with decompensation, AH. Hospital course: 3/4 pt calm, polite, organized, with good behavioral and impulse control, appropriate with peers and staff and tolerating a roommate. Pt appears to be at baseline (which includes some chronic delusional memories about his past). He is taking Seroquel of own volition and volunteers that he's starting to realize things go better for him overall when he takes it consistently. He even shared that despite some perceived side-effects (feels high for 5 minutes; eyes get red) the benefit is worth it overall. -will continue to monitor, but based on report, it seems that Seroquel 50mg qhs is enough to keep him stable in community (no problems w/ neighbors for first few days post discharge either while he was continuing on Seroquel or it remained in his system from taking it on unit). If he continues to adhere to this med regimen, display card writer finds it premature to enforce other aspects of Wolff Order. 3/5 pt remains at baseline; calm, cooperative, polite; appropriate with peers and staff and in good behavioral and impulse control. No AVH. Pt reiterates that he plans to continue taking Seroquel post discharge, again saying he does better on it overall. He also understands that taking this med may be what keeps him out of the hospital which he wants. Prior to admission, pt was not acting in an unsafe way; he has been in hospital for almost a week during which time he got his dose of INvega Sustenna and has been taking Seroquel on his own, without prompting. -It seems that Seroquel 50mg qhs is enough to eliminate problematic AH and adequate to help pt remain stable in the community. At this time it is writers opinion that no further medication management is warranted. Pt has 3 day notice due and he is at baseline. He is not in imminent risk for harm to self or others and at this time does not require longer inpt stay. Of course pt's stability in the community requires continued med adherence (of which pt reports he will do). If patient becomes unable/unwilling to remain adherent and returns to hospital, will at that time consider further med changes per New. -will discuss dispo with outpt team Medication: Invega Sustenna 234mg [id number] given on seroquel 50mg qhs Time spent discussing smoking cessation with patient: 3 to 10 minutes Status at Discharge Functional status at discharge: independent ambulation Overall status at discharge: patient is back to baseline Time Spent with Patient Time attestation: Total time managing care of this patient today _45___ minutes. Time spent: Greater than 30 minutes Discharge Plan Discharge Anticipated Discharge Date/Time: 08/04/23 11:45 Patient Disposition: Home, Self-Care Discharge Diagnosis: Schizoaffective disorder, bipolar type (stable) Referrals: Psych Prescriber: Davis Kumari ([facility]) [Other] - 08/19/23 11:00 am (Telehealth ) Therapy: Nina Monge ([facility]) [Other] - 08/10/23 9:00 am (Appointment is in person, at the office ) Name,MD Praneeth [Physician] - 08/15/23 1:00 pm (in office) Discharge Medications: Continued quetiapine 50 mg Tablet 50 mg PO BEDTIME 30 Days Qty: 30 0RF Invega Sustenna 234 mg/1.5 mL Syringe 234 mg IM Q21D 21 Days Qty: 1.5 0RF Rx Instructions: Last dose on 07/28/23 (next dose due 08/18/23) quetiapine [Seroquel] 25 mg tablet 25 mg PO BID PRN (Reason: agitation) 30 Days Qty: 30 0RF zolpidem 5 mg tablet 5 mg PO BEDTIME PRN (Reason: insomnia) 30 Days Qty: 30 0RF Rx Instructions: may repeat once if no response in 30-60 minutes Discontinued hydroxyzine HCl 25 mg Tablet 25 mg PO Q6H PRN (Reason: Anxiety) 30 Days Qty: 60 0RF Discharge Orders: Discharge Order (Routine); Ordered 08/04/23 Ordered By: Gama Bird Diet: Regular diet Activity on Discharge: As tolerated Stand Alone Forms: Patient Portal Discharge page, Community Support Care Plan Goals: Maintain mood and safe behaviors Take medications as prescribed Continue to pursue sobriety from Cannabis Practice coping skills Continue with outpatient providers and reach out to them as needed Health Concerns: Mood stability and behaviors Sobriety from Cannabis Plan of Treatment: Follow up with your PCP, psychiatric provider and other outpatient providers regarding above concerns Take medications as prescribed Assessment: Risk assessment at time of discharge:? Patient was interviewed prior to discharge and found to be fully oriented and without any SI or HI. Patient has improved insight and judgment and wants to continue treatment. Patient is not in imminent risk of harm to self or others and has a safety plan that includes presenting to the closest ER or calling 911 if feeling unsafe.? Patient has been observed closely by nursing and unit staff throughout admission; patient has not engaged in any behaviors that suggest dangerousness to self or others and has demonstrated appropriate behaviors and impulse control Discharge Date/Time: 08/04/23 11:05
== END 2023-08-04 11:05 | disposition home or self-care (01) | DRG 750 ==
LOC: HO.ED 07-28 08:19 → HO.PM5 07-28 15:49
PROVIDERS: Emergency Medicine; Admitting Provider Psychiatry & Neurology Psychiatry; Emergency Provider Emergency Medicine Emergency Medical Services; Visit Provider Psychiatry & Neurology Psychiatry
DX: F25.0 Schizoaffective disorder, bipolar type (principal); Z91.148 Patient's other noncompliance with medication regimen for other reason; Z20.822 Contact with and (suspected) exposure to COVID-19; Z87.891 Personal history of nicotine dependence; Z79.899 Other long term (current) drug therapy
CPT/HCPCS: 0241U; 36415; 80048; 80076; 80307; 81003; 83735; 85025; 93005; 99285; J2426; S9485

== ENCOUNTER → 2023-07-26 17:55 | Outpatient (BNV) | payer OTHER, SELFPAY | PROVIDERS: Emergency Provider Emergency Medicine Emergency Medical Services; Visit Provider Social Worker | DX: F25.0 Schizoaffective disorder, bipolar type (principal) | CPT/HCPCS: 99231; 99232; 99499 ==

== ENCOUNTER 2023-07-28 15:45 | Outpatient (BNV) | payer MEDICAID, SELFPAY | END 2023-08-01 09:00 | PROVIDERS: Admitting Provider Psychiatry & Neurology Psychiatry; Emergency Provider Emergency Medicine Emergency Medical Services; Visit Provider Internal Medicine Cardiovascular Disease | DX: F25.0 Schizoaffective disorder, bipolar type (principal); R94.31 Abnormal electrocardiogram [ECG] [EKG] | CPT/HCPCS: 93010 ==

== ENCOUNTER 2023-10-12 15:12 | Outpatient (REF) | payer MEDICAID, SELFPAY ==
[2023-10-12 15:26] LABS: MANUAL DIFF FLAG NO
[2023-10-12 16:18] LABS: Basophils Percent Auto 0.4 % (0-2); Eosinophils Absolute Auto 0.1 X10*3/uL (0.0-0.4); Eosinophils Percent Auto 1.1 % (0-4); Hemoglobin 15.4 g/dl (14.0-18.0); Imm Gran Abs Auto 0.07 X10*3/uL (0.00-0.03); Lymphocytes Absolute Auto 2.3 X10*3/uL (1.2-4.9); Lymphocytes Percent Auto 31.4 % (20-40); Mean Corpuscular HGB Conc 32.8 g/dl (31.0-36.0); Mean Corpuscular Hemoglobin 26.2 pg (27.0-33.0); Mean Corpuscular Volume 79.9 fL (80.0-98.0); Mean Platelet Volume 10.1 fL (9.4-12.4); Monocytes Absolute Auto 0.5 X10*3/uL (0.1-1.2); Monocytes Percent Auto 6.4 % (2-11); Neutrophils Absolute Auto 4.3 x10*3/uL (2.0-8.3); Neutrophils Percent Auto 59.7 % (45-73); Platelet Count 214 X10*3/uL (160-400); Red Blood Count 5.88 X10*6/uL (4.60-5.80); Red Cell Distribution Width 15.3 % (11.0-16.0); White Blood Count 7.2 X10*3/uL (4.8-10.8)
== END 2023-10-12 15:13 | disposition home or self-care (01) ==
LOC: HO.LAB 15:12
PROVIDERS: PCP Internal Medicine Geriatric Medicine; Visit Provider Psychiatry & Neurology Psychiatry
DX: Z79.899 Other long term (current) drug therapy (principal)
CPT/HCPCS: 36415; 85025

== ENCOUNTER 2023-10-19 14:45 | Outpatient (REF) | payer MEDICAID, SELFPAY ==
[2023-10-19 14:57] LABS: MANUAL DIFF FLAG NO
[2023-10-19 15:11] LABS: Basophils Percent Auto 0.6 % (0-2); Eosinophils Absolute Auto 0.1 X10*3/uL (0.0-0.4); Eosinophils Percent Auto 0.9 % (0-4); Hematocrit 47.1 % (42.0-52.0); Hemoglobin 15.3 g/dl (14.0-18.0); Imm Gran Abs Auto 0.08 X10*3/uL (0.00-0.03); Imm Gran Pct Auto 1.1 % (0.0-0.4); Lymphocytes Absolute Auto 1.9 X10*3/uL (1.2-4.9); Lymphocytes Percent Auto 27.4 % (20-40); Mean Corpuscular HGB Conc 32.5 g/dl (31.0-36.0); Mean Corpuscular Hemoglobin 26.2 pg (27.0-33.0); Mean Corpuscular Volume 80.7 fL (80.0-98.0); Monocytes Absolute Auto 0.4 X10*3/uL (0.1-1.2); Monocytes Percent Auto 6.1 % (2-11); Neutrophils Absolute Auto 4.5 x10*3/uL (2.0-8.3); Neutrophils Percent Auto 63.9 % (45-73); Platelet Count 202 X10*3/uL (160-400); Red Blood Count 5.84 X10*6/uL (4.60-5.80); Red Cell Distribution Width 15.1 % (11.0-16.0); White Blood Count 7.1 X10*3/uL (4.8-10.8)
== END 2023-10-19 14:46 | disposition home or self-care (01) ==
LOC: HO.LABR 14:45
PROVIDERS: PCP Internal Medicine Geriatric Medicine; Visit Provider Psychiatry & Neurology Psychiatry
DX: Z79.899 Other long term (current) drug therapy (principal)
CPT/HCPCS: 36415; 85025

== ENCOUNTER 2023-10-26 10:56 | Outpatient (REF) | payer MEDICAID, SELFPAY ==
[2023-10-26 11:07] LABS: MANUAL DIFF FLAG NO
[2023-10-26 11:53] LABS: Basophils Percent Auto 0.3 % (0-2); Eosinophils Percent Auto 0.2 % (0-4); Hematocrit 44.3 % (42.0-52.0); Hemoglobin 14.9 g/dl (14.0-18.0); Imm Gran Abs Auto 0.07 X10*3/uL (0.00-0.03); Imm Gran Pct Auto 0.7 % (0.0-0.4); Lymphocytes Absolute Auto 1.5 X10*3/uL (1.2-4.9); Lymphocytes Percent Auto 14.8 % (20-40); Mean Corpuscular HGB Conc 33.6 g/dl (31.0-36.0); Mean Corpuscular Hemoglobin 26.6 pg (27.0-33.0); Mean Platelet Volume 9.8 fL (9.4-12.4); Monocytes Absolute Auto 0.6 X10*3/uL (0.1-1.2); Monocytes Percent Auto 5.8 % (2-11); Neutrophils Absolute Auto 7.8 x10*3/uL (2.0-8.3); Neutrophils Percent Auto 78.2 % (45-73); Platelet Count 193 X10*3/uL (160-400); Red Blood Count 5.61 X10*6/uL (4.60-5.80); Red Cell Distribution Width 14.4 % (11.0-16.0)
== END 2023-10-26 10:57 | disposition home or self-care (01) ==
LOC: HO.LABR 10:56
PROVIDERS: PCP Internal Medicine Geriatric Medicine; Visit Provider Psychiatry & Neurology Psychiatry
DX: Z79.899 Other long term (current) drug therapy (principal)
CPT/HCPCS: 36415; 85025

== ENCOUNTER 2023-11-02 09:21 | Outpatient (REF) | payer MEDICAID, SELFPAY ==
[2023-11-02 09:32] LABS: MANUAL DIFF FLAG NO
[2023-11-02 10:08] LABS: Basophils Percent Auto 0.4 % (0-2); Eosinophils Absolute Auto 0.1 X10*3/uL (0.0-0.4); Eosinophils Percent Auto 1.1 % (0-4); Hematocrit 43.9 % (42.0-52.0); Hemoglobin 14.5 g/dl (14.0-18.0); Imm Gran Abs Auto 0.05 X10*3/uL (0.00-0.03); Imm Gran Pct Auto 0.7 % (0.0-0.4); Lymphocytes Absolute Auto 1.9 X10*3/uL (1.2-4.9); Lymphocytes Percent Auto 25.9 % (20-40); Mean Corpuscular Hemoglobin 26.9 pg (27.0-33.0); Mean Corpuscular Volume 81.3 fL (80.0-98.0); Mean Platelet Volume 10.3 fL (9.4-12.4); Monocytes Absolute Auto 0.5 X10*3/uL (0.1-1.2); Monocytes Percent Auto 6.2 % (2-11); Neutrophils Absolute Auto 4.9 x10*3/uL (2.0-8.3); Neutrophils Percent Auto 65.7 % (45-73); Platelet Count 182 X10*3/uL (160-400); Red Cell Distribution Width 15.1 % (11.0-16.0); White Blood Count 7.4 X10*3/uL (4.8-10.8)
== END 2023-11-02 09:22 | disposition home or self-care (01) ==
LOC: HO.LAB 09:21
PROVIDERS: PCP Internal Medicine Geriatric Medicine; Visit Provider Psychiatry & Neurology Psychiatry
DX: Z13.89 Encounter for screening for other disorder (principal)
CPT/HCPCS: 36415; 85025

== ENCOUNTER 2023-11-09 10:54 | Outpatient (REF) | payer MEDICAID, SELFPAY ==
[2023-11-09 11:10] LABS: MANUAL DIFF FLAG NO
[2023-11-09 11:47] LABS: Basophils Percent Auto 0.4 % (0-2); Eosinophils Absolute Auto 0.1 X10*3/uL (0.0-0.4); Eosinophils Percent Auto 1.2 % (0-4); Hematocrit 45.1 % (42.0-52.0); Hemoglobin 14.8 g/dl (14.0-18.0); Imm Gran Abs Auto 0.04 X10*3/uL (0.00-0.03); Imm Gran Pct Auto 0.8 % (0.0-0.4); Lymphocytes Absolute Auto 1.6 X10*3/uL (1.2-4.9); Lymphocytes Percent Auto 31.3 % (20-40); Mean Corpuscular HGB Conc 32.8 g/dl (31.0-36.0); Mean Corpuscular Hemoglobin 26.8 pg (27.0-33.0); Mean Corpuscular Volume 81.6 fL (80.0-98.0); Mean Platelet Volume 10.2 fL (9.4-12.4); Monocytes Absolute Auto 0.3 X10*3/uL (0.1-1.2); Monocytes Percent Auto 6.7 % (2-11); Neutrophils Percent Auto 59.6 % (45-73); Platelet Count 180 X10*3/uL (160-400); Red Blood Count 5.53 X10*6/uL (4.60-5.80); Red Cell Distribution Width 15.2 % (11.0-16.0); White Blood Count 5.1 X10*3/uL (4.8-10.8)
== END 2023-11-09 10:55 | disposition home or self-care (01) ==
LOC: HO.LABR 10:54
PROVIDERS: PCP Internal Medicine Geriatric Medicine; Visit Provider Psychiatry & Neurology Psychiatry
DX: Z79.899 Other long term (current) drug therapy (principal)
CPT/HCPCS: 36415; 85025

== ENCOUNTER 2023-11-18 09:59 | Outpatient (REF) | payer MEDICAID, SELFPAY ==
[2023-11-18 10:15] LABS: MANUAL DIFF FLAG NO
[2023-11-18 10:23] LABS: Basophils Percent Auto 0.4 % (0-2); Eosinophils Absolute Auto 0.1 X10*3/uL (0.0-0.4); Eosinophils Percent Auto 0.7 % (0-4); Hematocrit 48.9 % (42.0-52.0); Imm Gran Abs Auto 0.06 X10*3/uL (0.00-0.03); Imm Gran Pct Auto 0.9 % (0.0-0.4); Lymphocytes Absolute Auto 1.7 X10*3/uL (1.2-4.9); Lymphocytes Percent Auto 24.6 % (20-40); Mean Corpuscular HGB Conc 32.7 g/dl (31.0-36.0); Mean Corpuscular Hemoglobin 26.4 pg (27.0-33.0); Mean Corpuscular Volume 80.6 fL (80.0-98.0); Mean Platelet Volume 9.7 fL (9.4-12.4); Monocytes Absolute Auto 0.4 X10*3/uL (0.1-1.2); Monocytes Percent Auto 5.1 % (2-11); Neutrophils Absolute Auto 4.7 x10*3/uL (2.0-8.3); Neutrophils Percent Auto 68.3 % (45-73); Platelet Count 205 X10*3/uL (160-400); Red Blood Count 6.07 X10*6/uL (4.60-5.80); Red Cell Distribution Width 15.7 % (11.0-16.0); White Blood Count 6.8 X10*3/uL (4.8-10.8)
== END 2023-11-18 10:00 | disposition home or self-care (01) ==
LOC: HO.LABR 09:59
PROVIDERS: PCP Internal Medicine Geriatric Medicine; Visit Provider Psychiatry & Neurology Psychiatry
DX: Z79.899 Other long term (current) drug therapy (principal)
CPT/HCPCS: 36415; 85025

== ENCOUNTER 2023-11-25 13:15 | Outpatient (REF) | payer MEDICAID, SELFPAY ==
[2023-11-25 13:27] LABS: MANUAL DIFF FLAG NO
[2023-11-25 13:54] LABS: Basophils Percent Auto 0.3 % (0-2); Eosinophils Percent Auto 0.6 % (0-4); Hematocrit 44.4 % (42.0-52.0); Hemoglobin 15.1 g/dl (14.0-18.0); Imm Gran Abs Auto 0.03 X10*3/uL (0.00-0.03); Imm Gran Pct Auto 0.4 % (0.0-0.4); Lymphocytes Absolute Auto 1.7 X10*3/uL (1.2-4.9); Lymphocytes Percent Auto 24.6 % (20-40); Mean Corpuscular Hemoglobin 26.7 pg (27.0-33.0); Mean Corpuscular Volume 78.4 fL (80.0-98.0); Mean Platelet Volume 10.2 fL (9.4-12.4); Monocytes Absolute Auto 0.5 X10*3/uL (0.1-1.2); Monocytes Percent Auto 7.4 % (2-11); Neutrophils Absolute Auto 4.5 x10*3/uL (2.0-8.3); Neutrophils Percent Auto 66.7 % (45-73); Platelet Count 176 X10*3/uL (160-400); Red Blood Count 5.66 X10*6/uL (4.60-5.80); Red Cell Distribution Width 14.1 % (11.0-16.0); White Blood Count 6.8 X10*3/uL (4.8-10.8)
== END 2023-11-25 13:16 | disposition home or self-care (01) ==
LOC: HO.LABR 13:15
PROVIDERS: Visit Provider Psychiatry & Neurology Psychiatry
DX: Z79.899 Other long term (current) drug therapy (principal)
CPT/HCPCS: 36415; 85025

== ENCOUNTER 2023-12-17 09:59 | Outpatient (REF) | payer MEDICAID, SELFPAY ==
[2023-12-17 10:10] LABS: MANUAL DIFF FLAG NO
[2023-12-17 10:51] LABS: Basophils Percent Auto 0.5 % (0-2); Eosinophils Absolute Auto 0.1 X10*3/uL (0.0-0.4); Eosinophils Percent Auto 1.3 % (0-4); Hematocrit 42.1 % (42.0-52.0); Hemoglobin 14.5 g/dl (14.0-18.0); Imm Gran Abs Auto 0.04 X10*3/uL (0.00-0.03); Imm Gran Pct Auto 0.6 % (0.0-0.4); Lymphocytes Absolute Auto 1.8 X10*3/uL (1.2-4.9); Lymphocytes Percent Auto 28.9 % (20-40); Mean Corpuscular HGB Conc 34.4 g/dl (31.0-36.0); Mean Corpuscular Hemoglobin 27.3 pg (27.0-33.0); Mean Corpuscular Volume 79.3 fL (80.0-98.0); Mean Platelet Volume 10.4 fL (9.4-12.4); Monocytes Absolute Auto 0.5 X10*3/uL (0.1-1.2); Monocytes Percent Auto 8.3 % (2-11); Neutrophils Absolute Auto 3.8 x10*3/uL (2.0-8.3); Neutrophils Percent Auto 60.4 % (45-73); Platelet Count 192 X10*3/uL (160-400); Red Blood Count 5.31 X10*6/uL (4.60-5.80); Red Cell Distribution Width 14.1 % (11.0-16.0); White Blood Count 6.3 X10*3/uL (4.8-10.8)
== END 2023-12-17 10:00 | disposition home or self-care (01) ==
LOC: HO.LABR 09:59
PROVIDERS: PCP Internal Medicine Geriatric Medicine; Visit Provider Psychiatry & Neurology Psychiatry
DX: Z79.899 Other long term (current) drug therapy (principal)
CPT/HCPCS: 36415; 85025

== ENCOUNTER 2024-04-11 10:58 | Outpatient (REF) | payer MEDICAID, SELFPAY ==
[2024-04-11 11:47] LABS: MANUAL DIFF FLAG NO
[2024-04-11 11:56] LABS: Basophils Percent Auto 0.3 % (0-2); Eosinophils Absolute Auto 0.2 X10*3/uL (0.0-0.4); Eosinophils Percent Auto 1.5 % (0-4); Hematocrit 43.5 % (42.0-52.0); Hemoglobin 14.1 g/dl (14.0-18.0); Imm Gran Abs Auto 0.08 X10*3/uL (0.00-0.03); Imm Gran Pct Auto 0.7 % (0.0-0.4); Lymphocytes Absolute Auto 1.2 X10*3/uL (1.2-4.9); Lymphocytes Percent Auto 11.1 % (20-40); Mean Corpuscular HGB Conc 32.4 g/dl (31.0-36.0); Mean Corpuscular Hemoglobin 26.6 pg (27.0-33.0); Mean Corpuscular Volume 81.9 fL (80.0-98.0); Mean Platelet Volume 9.8 fL (9.4-12.4); Monocytes Absolute Auto 0.6 X10*3/uL (0.1-1.2); Monocytes Percent Auto 5.5 % (2-11); Neutrophils Absolute Auto 8.7 x10*3/uL (2.0-8.3); Neutrophils Percent Auto 80.9 % (45-73); Platelet Count 203 X10*3/uL (160-400); Red Blood Count 5.31 X10*6/uL (4.60-5.80); Red Cell Distribution Width 14.4 % (11.0-16.0); White Blood Count 10.8 X10*3/uL (4.8-10.8)
[2024-04-11 12:22] LABS: Alanine Aminotransferase 55 U/L (0-40); Albumin Level 4.2 g/dL (3.5-5.0); Alkaline Phosphatase 76 U/L (39-117); Anion Gap 11 (12-20); Aspartate Amino Transferase 36 U/L (5-37); Bilirubin Total 0.2 mg/dL (0.0-1.0); Blood Urea Nitrogen 26 mg/dL (9-16); Calcium 9.3 mg/dL (8.4-10.2); Carbon Dioxide 25 mmol/L (22-29); Chloride 113 mmol/L (96-108); Cholesterol 162 mg/dL (<200); Estimated Glomerular Filt Rate > 60; Glucose Random 119 mg/dL (60-115); HDL Cholesterol 39 mg/dL (>40); LDL Cholesterol Calculated 104 mg/dL (<100); Potassium 3.8 mmol/L (3.3-5.1); Sodium 145 mmol/L (135-145); Total Protein 6.7 g/dL (6.5-8.0); Triglycerides 99 mg/dL (<150)
[2024-04-11 12:41] LABS: HBS Num1 47.21 mIU/mL (0-7.99); HBsAGNum1 0.29 S/CO (0.00-0.99); HIV AB/AG Nonreactive (Nonreactive); HIV Num 1 0.06 S/CO (0.00-0.99); Hepatitis B Surface Antigen Negative (Negative); ~HepC Num1 0.09 S/CO (0.00-0.79); ~Hepatitis B Surface Antibody REACTIVE (Nonreactive); ~Hepatitis C Antibody Nonreactive (Nonreactive)
[2024-04-11 13:35] LABS: CT PCR NOT DETECTED (Not Detect.); NG PCR NOT DETECTED (Not Detect.)
[2024-04-13 07:28] LABS: RPR Rapid Plasma Reagin NON-REACTIVE (NON-REACTIVE)
== END 2024-04-11 10:59 | disposition home or self-care (01) ==
LOC: HO.LAB 10:58
PROVIDERS: PCP Internal Medicine Geriatric Medicine; Visit Provider Internal Medicine Geriatric Medicine
DX: Z79.899 Other long term (current) drug therapy (principal); F25.0 Schizoaffective disorder, bipolar type; F17.200 Nicotine dependence, unspecified, uncomplicated; Z11.3 Encounter for screening for infections with a predominantly sexual mode of transmission
CPT/HCPCS: 80053; 80061; 85025; 86592; 86706; 86803; 87340; 87389; 87491; 87591

== ENCOUNTER 2024-04-30 10:39 | Outpatient (REF) | payer MEDICAID, SELFPAY ==
[2024-04-30 10:58] LABS: MANUAL DIFF FLAG NO
[2024-04-30 11:53] LABS: Basophils Absolute Auto 0.1 X10*3/uL (0.0-0.2); Basophils Percent Auto 0.7 % (0-2); Eosinophils Absolute Auto 0.1 X10*3/uL (0.0-0.4); Eosinophils Percent Auto 0.8 % (0-4); Hematocrit 46.9 % (42.0-52.0); Hemoglobin 15.4 g/dl (14.0-18.0); Imm Gran Abs Auto 0.15 X10*3/uL (0.00-0.03); Imm Gran Pct Auto 1.7 % (0.0-0.4); Lymphocytes Absolute Auto 1.6 X10*3/uL (1.2-4.9); Lymphocytes Percent Auto 17.3 % (20-40); Mean Corpuscular HGB Conc 32.8 g/dl (31.0-36.0); Mean Corpuscular Hemoglobin 26.4 pg (27.0-33.0); Mean Corpuscular Volume 80.4 fL (80.0-98.0); Mean Platelet Volume 10.1 fL (9.4-12.4); Monocytes Absolute Auto 0.6 X10*3/uL (0.1-1.2); Monocytes Percent Auto 6.7 % (2-11); Neutrophils Absolute Auto 6.6 x10*3/uL (2.0-8.3); Neutrophils Percent Auto 72.8 % (45-73); Platelet Count 195 X10*3/uL (160-400); Red Blood Count 5.83 X10*6/uL (4.60-5.80); Red Cell Distribution Width 14.9 % (11.0-16.0)
== END 2024-04-30 10:40 | disposition home or self-care (01) ==
LOC: HO.LAB 10:39
PROVIDERS: PCP Internal Medicine Geriatric Medicine; Visit Provider Psychiatry & Neurology Psychiatry
DX: Z79.899 Other long term (current) drug therapy (principal)
CPT/HCPCS: 36415; 85025

== ENCOUNTER 2024-05-16 10:12 | Outpatient (REF) | payer MEDICAID, SELFPAY ==
[2024-05-16 11:30] LABS: MANUAL DIFF FLAG NO
[2024-05-16 11:38] LABS: Basophils Percent Auto 0.5 % (0-2); Eosinophils Percent Auto 0.5 % (0-4); Hematocrit 45.2 % (42.0-52.0); Hemoglobin 14.9 g/dl (14.0-18.0); Imm Gran Abs Auto 0.05 X10*3/uL (0.00-0.03); Imm Gran Pct Auto 0.6 % (0.0-0.4); Lymphocytes Absolute Auto 1.5 X10*3/uL (1.2-4.9); Lymphocytes Percent Auto 18.8 % (20-40); Mean Corpuscular Hemoglobin 26.2 pg (27.0-33.0); Mean Corpuscular Volume 79.6 fL (80.0-98.0); Mean Platelet Volume 10.1 fL (9.4-12.4); Monocytes Absolute Auto 0.5 X10*3/uL (0.1-1.2); Monocytes Percent Auto 6.3 % (2-11); Neutrophils Absolute Auto 5.8 x10*3/uL (2.0-8.3); Neutrophils Percent Auto 73.3 % (45-73); Platelet Count 216 X10*3/uL (160-400); Red Blood Count 5.68 X10*6/uL (4.60-5.80); Red Cell Distribution Width 14.3 % (11.0-16.0); White Blood Count 7.9 X10*3/uL (4.8-10.8)
== END 2024-05-16 10:13 | disposition home or self-care (01) ==
LOC: HO.LAB 10:12
PROVIDERS: PCP Internal Medicine Geriatric Medicine; Visit Provider Psychiatry & Neurology Psychiatry
DX: Z79.899 Other long term (current) drug therapy (principal)
CPT/HCPCS: 36415; 85025

== ENCOUNTER 2024-06-20 14:33 | Outpatient (REF) | payer MEDICAID, SELFPAY ==
[2024-06-20 14:50] LABS: MANUAL DIFF FLAG NO
[2024-06-20 15:13] LABS: Basophils Percent Auto 0.2 % (0-2); Eosinophils Percent Auto 0.2 % (0-4); Hematocrit 47.8 % (42.0-52.0); Hemoglobin 15.7 g/dl (14.0-18.0); Imm Gran Abs Auto 0.05 X10*3/uL (0.00-0.03); Imm Gran Pct Auto 0.5 % (0.0-0.4); Lymphocytes Absolute Auto 1.7 X10*3/uL (1.2-4.9); Lymphocytes Percent Auto 17.6 % (20-40); Mean Corpuscular HGB Conc 32.8 g/dl (31.0-36.0); Mean Corpuscular Hemoglobin 25.8 pg (27.0-33.0); Mean Corpuscular Volume 78.6 fL (80.0-98.0); Mean Platelet Volume 9.8 fL (9.4-12.4); Monocytes Absolute Auto 0.7 X10*3/uL (0.1-1.2); Monocytes Percent Auto 6.9 % (2-11); Neutrophils Percent Auto 74.6 % (45-73); Platelet Count 278 X10*3/uL (160-400); Red Blood Count 6.08 X10*6/uL (4.60-5.80); Red Cell Distribution Width 14.4 % (11.0-16.0); White Blood Count 9.4 X10*3/uL (4.8-10.8)
== END 2024-06-20 14:34 | disposition home or self-care (01) ==
LOC: HO.LABR 14:33
PROVIDERS: PCP Internal Medicine Geriatric Medicine; Visit Provider Psychiatry & Neurology Psychiatry
DX: Z79.899 Other long term (current) drug therapy (principal)
CPT/HCPCS: 36415; 85025

== ENCOUNTER 2024-06-22 | Outpatient (REF) | payer MEDICAID, SELFPAY ==
--- OUTSIDE RECORDS SUMMARY | 2024-06-22 15:49 | XMS_ITS | Clinical Summary ---
Author Organization [employer] [facility] ity Address [address] [place] [address] Care Team Providers Care Coffee Farmer Name Role Phone Unavailable Primary Care Provider Unavailabl e Social History Tobacco Use Types Packs/Day Years Used Date Smoking Tobacco: Never Assessed Sex and Gender Information Value Date Recorded Sex Assigned at Not on file Gender Identity Not on file Sexual Orientation Not on file Plan of Treatment Health Maintenance Due Date Last Done Comments DTaP,Tdap,and Td Vaccines (1 - Tdap) 2005 Hepatitis B Vaccines (1 of 3 - 19+ 3-dose series) 2005 COVID-19 Vaccine (2023-2 5 season) 2024 Influenza Vaccine (#1) 2024 Cholesterol Screening (Lipid Panel) 03/14/2024 Depression Screening 03/14/2024 HIV Screening 03/14/2024 Hepatitis C Screening 03/14/2024 Social Influencers of Health Screening 03/14/2024 HIB Vaccines Aged Out No longer eligi ble based on patient's age to complete this topic HPV Vaccines Aged Out No longer eligi ble based on patient's age to complete this topic Hepatitis A Vaccines Aged Out No long er eligible based on patient's age to complete this topic IPV Vaccines Aged Out No longer eligi ble based on patient's age to complete this topic MMR Vaccines Aged Out No longer eligi ble based on patient's age to complete this topic Meningococcal ACWY Vaccine Aged Out N o longer eligible based on patient's age to complete this topic Pneumococcal Vaccine: Pediat rics (0 to 5 Years) and At-Risk Patients (6 to 64 Years) Aged Out No longer eligible b ased on patient's age to complete this topic RSV Immunization Patients Un alex 20 months Aged Out No longer eligible b ased on patient's age to complete this topic Varicella Vaccines Aged Out No longer eligible based on patient's age to complete this topic
--- OUTSIDE RECORDS SUMMARY | 2024-06-22 15:49 | XMS_ITS | Encounter Summary ---
Author Organization [employer] Address [address] [place] [address] Care Team Providers Care Cable Splicer Helper Name Role Phone Name, Praneeth LECHUGA Primary Care Provider [phone] Reason for Visit * Reason Comments Med Refill Encounter Details Date Type Department Care Team ([facility] st Contact Info) Description 12/02/2023 Refill [facility] [address], [place] [id number] Name, MD Praneeth [address] [place] [address] Nicotine dependence, uncomplicated, unspecified nicotine product type Social History Tobacco Use Types Packs/Day Years Used Date Smoking Tobacco: Every Day Cigarettes Smokeless Tobacco: Never Housing Stability Answer Date Recorded What is your housing situation today? I do not have housing (Staying with others, in a hotel, in a chcf, living outside on the street, on a beach, in a car, or in a park 03/06/[address] you li ve. Do you have problems with any of the following? None of the above 03/06/2023 Food Insecurity Answer Date Recorded Within the past 12 months, y ou worried that your food would run out before you got money to buy more: Never True 03/18/2023 Within the past 12 months,th e food you bought just didn't last and you didn't have enough money to get more: Never True Transportation Answer Date Recorded In the past 12 months, has l ack of transportation kept you from medical appts, meetings, work or from getting things needed for daily living? No 03/18/2023 Utilities Answer Date Recorded In the past 12 months, has t he electric, gas, oil or water company threatened to shut off services in your home? No 03/18/2023 Depression Answer Date Recorded Patient Health Questionnaire-2 Score 1 06/21/2022 Sex and Gender Information Value Date Recorded Sex Assigned at Male 03/29/2022 10:26 AM EDT Legal Sex Male 10:26 AM EDT Gender Identity Male 03/29/2022 10:26 AM EDT Sexual Orientation Straight 03/29/2022 10 :26 AM EDT documented as of this encounter Plan of Treatment Upcoming Encounters Date Type Department Care Team (Late st Contact Info) Description 08/29/2024 2:45 PM EDT Office Visit [facility] [address] [place] [phone] NamePraneeth MD [address] [place] [phone] documented as of this encounter Visit Diagnoses Diagnosis Nicotine dependence, uncomplicated, unspecified nicotine product type documented in this encounter Care Teams Cable Splicer Helper Relationship Specialty Start Date End Date NamePraneeth MD [address] [place] [phone] PCP - General Family Medicine 05/04/16 documented as of this encounter
--- OUTSIDE RECORDS SUMMARY | 2024-06-22 15:49 | XMS_ITS | Encounter Summary ---
Author Organization [employer] Address [address] [facility] 7 [place] [address] Care Team Providers Care Engine Testing Supervisor Name Role Phone Name, Praneeth LECHUGA Primary Care Provider [phone] Reason for Visit * Reason Onset Date Comments Call Back Request 10/26/2023 Encounter Details Date Type Department Care Team ([facility] Contact Info) Description 10/26/2023 Telephone [facility] [address] [place], [place] [id number] Name, MD Praneeth [address] [place] [address] Call Back Request Social History Tobacco Use Types Packs/Day Years Used Date Smoking Tobacco: Every Day Cigarettes Smokeless Tobacco: Never Housing Stability Answer Date Recorded What is your housing situation today? I do not have housing (Staying with others, in a hotel, in a longterm, living outside on the street, on a [...] AM EDT documented as of this encounter Miscellaneous Notes * Telephone Encounter - Lamar Love RN - 10/27/2023 11:11 AM EDT Medication que for approval. Please review and advise. * Telephone Encounter - Lamar Love RN - 10/27/2023 10:45 AM EDT T/C to Lauren for below message, Lauren states pt. Was prescribe Nicotine patches from [facility], but now he discharge from that facility and looking for nicotine patches rx by PCP. Pt. Is asking for rx. 7 mg Nicotine patches. Please review and advise. * Telephone Encounter - Estephanie Manrique - 10/26/2023 2:46 PM EDT Tc from Lauren [facility] requesting a call back, stated pt needs medications in specific nicotine patches. Please contact Lauren at [phone] documented in this encounter Plan of Treatment Upcoming Encounters Date Type Department Care Team (Late st Contact Info) Description 08/29/2024 2:45 PM EDT Office Visit [facility] [address] [place] [id number] Name, MD Praneeth [address] [place] [address] documented as of this encounter Visit Diagnoses Not on filedocumented in this encounter Care Teams Engine Testing Supervisor Relationship Specialty Start Date End Date Name, MD Praneeth [address] [place] [address] PCP - General Family Medicine 05/04/16 documented as of this encounter
--- OUTSIDE RECORDS SUMMARY | 2024-06-22 15:50 | XMS_ITS | Encounter Summary ---
Author Organization [employer] Address [address] [place] [address] Care Team Providers Care Hospice Plan Administrator Name Role Phone Name, Praneeth LECHUGA Primary Care Provider Encounter Details Date Type Department Care Team ([facility] Contact Info) Description 06/22/2024 9:00 AM EST Office Visit [facility] [address] [place] [address] [phone] Hunter Adler MD [address] [place] [address] Chronic cough (Primary Dx); Gastroesophageal reflux disease without esophagitis Social History Tobacco Use Types Packs/Day Years Used Date Smoking Tobacco: Every Day Cigarettes Smokeless Tobacco: Never Alcohol Use Standard Drinks/Week Comments Never 0 (1 standard drink = 0.6 oz pur e alcohol) Depression Answer Date Recorded Patient Health Questionnaire-9 Score 1 12/08/2023 Patient Health Questionnaire-9 Score 1 12/08/2023 Last PHQ-9: Questionnaire Data Not on file 0 12/08/2023 Housing Stability Answer Date Recorded What is your housing situation today? I have pema sing 12/08/[address] you li ve. Do you have problems with any of the following? Oven or stove not working 12/08/2023 Food Insecurity Answer Date Recorded Within the past 12 months, y ou worried that your food would run out before you got money to buy more: Never True 2023 Within the past 12 months,th e food you bought just didn't last and you didn't have enough money to get more: Sometimes True 12/08/2023 Transportation Answer Date Recorded In the past 12 months, has l ack of transportation kept you from medical appts, meetings, work or from getting things needed for daily living? No 12/08/2023 Utilities Answer Date Recorded In the past 12 months, has t he electric, gas, oil or water company threatened to shut off services in your home? Already shut Off 12/08/2023 Depression Answer Date Recorded Patient Health Questionnaire-2 Score 1 12/08/2023 Internet Access Answer Date Recorded Internet Access Q1 Yes 01/28/2024 Internet Access Q2 Not on file 01/28/2024 Sex and Gender Information Value Date Recorded Sex Assigned at Male 03/29/2022 10:26 AM EDT Legal Sex Male 10:26 AM EDT Gender Identity Male 03/29/2022 10:26 AM EDT Sexual Orientation Straight 03/29/2022 10 :26 AM EDT documented as of this encounter Last Filed Vital Signs Vital Sign Reading Time Taken Comments Blood Pressure 113/74 06/22/2024 9:11 AM EST Pulse 84 06/22/2024 9:11 AM EST Temperature 36.7 ??C (98 ??F) 06/22/2024 9:11 AM EST Respiratory Rate 16 06/22/2024 9:11 AM EST Oxygen Saturation 98% 06/22/2024 9:11 AM EST Inhaled Oxygen Concentration - - Weight 99.8 kg (220 lb) 06/22/2024 9:11 AM EST Height - - Body Mass Index 32.49 12/08/2023 3:34 PM EDT documented in this encounter Progress Notes * Hunter Adler MD - 06/22/2024 9:00 AM EST Subjective History was provided by the patient. Asif Vargas is a 39 y.o. male who presents for evaluation of ongoing cough since 02/2024. Was admitted at [facility] (12/2023 - 03/2024) for bipolar disorder and schizoaffective disorder. He feels he may have caught something from his roommate. Symptoms started as URI symptoms with productive cough, congestion, and rhinorrhea. Now he reports recurring dry cough for 3 months. Also reports frequent acid reflux symptoms. Some nausea, but no vomiting or diarrhea. He is now followed by [facility] outpatient clinic. States he is under the New Order for antipsychotic medicationtreatment. Denies current F/C. Denies current congestion, rhinorrhea, or sore throat. Denies current CP/SOB/[place]. Objective Vitals: 06/22/24 0911 BP: 113/74 BP Location: Left arm Patient Position: Sitting BP Cuff Size: Adult Pulse: 84 Resp: 16 Temp: 98 ??F (36.7 ??C) TempSrc: Temporal SpO2: 98% Weight: 220 lb (99.8 kg) Physical Exam Vitals reviewed. Constitutional: General: He is not in acute distress. Appearance: Normal appearance. He is not ill-appearing, toxic-appearing or diaphoretic. HENT: Head: Normocephalic and atraumatic. Right Ear: Tympanic membrane, ear canal and external ear normal. Left Ear: Tympanic membrane, ear canal and external ear normal. Nose: Nose normal. No congestion or rhinorrhea. Mouth/Throat: Mouth: Mucous membranes are dry. Pharynx: Oropharynx is clear. No oropharyngeal exudate or posterior oropharyngeal erythema. Eyes: Extraocular Movements: Extraocular movements intact. Conjunctiva/sclera: Conjunctivae normal. Pupils: Pupils are equal, round, and reactive to light. Cardiovascular: Rate and Rhythm: Normal rate and regular rhythm. Heart sounds: Normal heart sounds. Pulmonary: Effort: Pulmonary effort is normal. Breath sounds: Normal breath sounds. Musculoskeletal: Cervical back: Normal range of motion and neck supple. Lymphadenopathy: Cervical: No cervical adenopathy. Skin: General: Skin is warm and dry. Neurological: Mental Status: He is alert and oriented to person, place, and time. Psychiatric: Mood and Affect: Mood normal. Diagnoses and all orders for this visit: Chronic cough (Primary) - XR Chest 2 Views; Future - Respiratory Viral Panel PCR; Future Gastroesophageal reflux disease without esophagitis - omeprazole OTC (PriLOSEC OTC) 20 MG EC tablet; Take 1 tablet (20 mg) by mouth before breakfast. Do not crush, chew, or split. Patient presents to [facility] with 3-month duration of cough Normal pulmonary exam and no respiratory distress O2 sat reassuring Will check Respiratory Panel Trial of PPI given also with GERD symptoms Check CXR for further evaluation given chronicity of his symptoms History of tobacco and vape use Recent prolonged inpatient hospital admission Now under the [place] Order Followed by [facility] agency Advised to contact the clinic if no improvement of symptoms Indications for UC/ER use reviewed documented in this encounter Plan of Treatment Upcoming Encounters Date Type Department Care Team (Late st Contact Info) Description 08/29/2024 2:45 PM EDT Office Visit [facility] [place] [address] Name, [place] [address] Scheduled Orders Name Type Priority Associated Diagnoses Orde r Schedule Respiratory Viral Panel PCR Lab Routine Chronic cough Expected: 06/22/2024 (Approximate), Expires: 06/22/2025 documented as of this encounter Procedures Procedure Name Priority Date/Time Associated Diagnosis Comments XR CHEST 2 VIEWS Routine 06/22/2024 9:46 AM EST Chronic cough documented in this encounter Results * XR Chest 2 Views (06/22/2024 9:46 AM EST) Anatomical Region Laterality Modality Chest Radiographic Sara ging 06/22/2024 9:46 AM EST Narrative 06/22/2024 10:12 AM EST ?[facility] ?[address] ?[place] [id number] ?XRay Report ? Signed ? Patient: Asif Vargas ?MR#: [id number] ?? [id number] ? : 1985 ?Acct:[id number] ? Age/Sex: 39 / M ?ADM Date: 06/22/ ? Loc: HO.HHCX ? Attending Dr: Hunter Adler MD ? Ordering Physician: Hunter Adler MD ?? Date of Service: 06/22/24 ?? Procedure(s): XR chest 2V ?? Accession Number(s): [id number] ? cc: Hunter Adler MD ? EXAMINATION: ?? XR CHEST ? CLINICAL INFORMATION: ?? Patient with 3-fouig-qesmtavw of cough. History of tobacco and vape use. ? COMPARISON: ?? 01/30/2016. ? TECHNIQUE: ?? 2 views of the chest were obtained. ? FINDINGS: ?? The cardiac, hilar, and mediastinal contours are normal. There is a ?? calcified lymph node in the right paratracheal region. ? The lungs are clear bilaterally. There is no pneumothorax or pleural ?? effusion. ? There is no focal osseous or soft tissue abnormality. ? XR/XR chest 2V ?? IMPRESSION: ?? No active pulmonary disease. ? Electronically signed by: ??Andrea Byrd MD ??06/22/2024 10:09 AM EST RP ? Dictated By: ?Andrea Byrd MD ? Signed By: ?<Electronically signed by Andrea Byrd MD in [place]> ?06/22/24 1009 ? DD/ 0946 ? TD/TT: 06/22/24 1000 ? Winery Worker: ? Procedure Note Domitila, Image - 06/22/2024 [place] [address] XRay Report Signed Patient: Asif Vargas RMR#: [id number] : 1985Acct:[id number] Age/Sex: 39 / MADM Date: 06/22/24 Loc: HO.HHCX Attending Dr: Hunter Adler MD Ordering Physician: Hunter Adler MD Date of Service: 06/22/24 Procedure(s): XR chest 2V Accession Number(s): [id number] cc: Hunter Adler MD EXAMINATION: XR CHEST CLINICAL INFORMATION: Patient with 9-uhcbh-zrlwiuhs of cough. History of tobacco and vape use. COMPARISON: 01/30/2016. TECHNIQUE: 2 views of the chest were obtained. FINDINGS: The cardiac, hilar, and mediastinal contours are normal. There is a calcified lymph node in the right paratracheal region. The lungs are clear bilaterally. There is no pneumothorax or pleural effusion. There is no focal osseous or soft tissue abnormality. XR/XR chest 2V IMPRESSION: No active pulmonary disease. Electronically signed by: Andrea Byrd MD 06/22/2024 10:09 AM [facility] Dictated By: Andrea Byrd MD Signed By: <Electronically signed by Andrea Byrd MD in OV> 06/22/24 1009 DD/ 0946 TD/TT: 06/22/24 1000 Winery Worker: us Hunter Adler MD IMG XR PROCEDURES Final Result documented in this encounter Visit Diagnoses Diagnosis Chronic cough- Primary Cough Gastroesophageal reflux disease without esophagitis Esophageal reflux documented in this encounter Additional Health Concerns Assessment Noted Time PHQ-9 Depression Total Score: 1 12/08/19 24 3:37 PM EDT documented as of this encounter Care Teams Hospice Plan Administrator Relationship Specialty Start Date End Date Name, MD Praneeth [address] [place] [address] PCP - General Family Medicine 05/04/16 documented as of this encounter
--- OUTSIDE RECORDS SUMMARY | 2024-06-22 15:50 | XMS_ITS | Clinical Summary ---
Author Organization [employer] Address [address] [facility] [address] [place] [address] Care Team Providers Care Production Control Supervisor Name Role Phone Name, Praneeth LECHUGA Primary Care Provider [phone] Allergies Active Allergy Reactions Criticality Noted Date Comments Haloperidol High 09/11/2013 Other reaction(s): Dystonia Olanzapine 03/09/2024 Ziprasidone 09/11/2013 Medications * This document contains information received from the source organization and may not represent a complete record from that organization. cloZAPine (Clozaril) 25 MG tablet 1 tab by mouth once daily x 1 day, 2 tabs daily x 1 day, continue to increase by 1 tab daily until reaching 8 tabs once daily 4 Active hydrOXYzine pamoate (Vistaril) 50 MG capsule 4 Active cloZAPine (Fazaclo) 200 MG disintegrating tablet Take 200 mg by mouth at bedtime. 4 Active Banophen 50 MG capsule Take 2 capsules by mouth at bedtime. 4 Active ARIPiprazole ER 960 MG/3.2ML prefilled syringe Inject 3.2 mL into the muscle every 8 (eight) weeks. Active omeprazole OTC (PriLOSEC OTC) 20 MG EC tabletIndications:G astroesophageal reflux disease without esophagitis Take 1 tablet (20 mg) by mouth before breakfast. Do not crush, chew, or split. 30 tablet 2 5 09/21/19 25 Active Active Problems Problem Noted Date Diagnosed Date Nicotine abuse 03/09/2024 Elevation of level of transa minase and lactic acid dehydrogenase (LDH) 03/09/2024 Schizoaffective disorder 01/25/2022 Bipolar affective disorder, current episode manic with psychotic symptoms 11/26/2020 Mild intermittent asthma 05/11/2016 Asthma 09/11/2013 Gastroesophageal reflux disease 09/11/2013 Depression 12/11/2010 Cannabis abuse 12/07/2010 Encounters * This document contains information received from the source organization and may not represent a complete record from that organization. Date Type Department Care Team Description 06/22/2024 9:00 AM EST Office Visit [facility] [address] [place] [phone] Hunter Adler MD Chronic cough (Primary Dx); Gastroesophageal reflux disease without esophagitis 04/20/2024 Telephone [facility] [address] [place] [phone] Keli Hubbard NP No Show (Pt no show [facility] 01/02 (EVALUATION)/[facility] 01/04/2024 - 04/09/2024/Dx: Aggressive intrusive behavior on 04/20/2024, no show forward to team nurses.) 04/19/2024 Telephone [facility] [address] [place] [address] Yong Cormier MA CHART PREP 04/16/[address] [address] Praneeth Lanier MD Results 04/05/2024 Patient Outreach [facility] [address] [place], [place] [phone] Praneeth Lanier MD Pre-visit Planning (HDF scheduled, SDOH was completed on 12/08/2023) from Last 3 Months Immunizations Name Administration Dates Next Due Influenza injectable quadriv alent IIV4 with preservative 04/08/2017,05/11/2016 Influenza injectable quadriv alent preservative free 03/11/2023,06/26/2020,03/21/2019 Influenza, IIV3, injectable 03/24/2011, 1 Pneumococcal Conjugate PCV 20 12/08/2023 Td (adult), 5 Lf tetanus tox oid, preservative free, adsorbed 02/09/2015 Tdap 02/06/2023,,02/09/2015,2008 Social History Tobacco Use Types Packs/Day Years Used Date Smoking Tobacco: Every Day Cigarettes Smokeless Tobacco: Never Tobacco Cessation:Ready to Q uit: Not Asked; Counseling Given: Not Answered Alcohol Use Standard Drinks/Week Comments Never 0 (1 standard drink = 0.6 oz pur e alcohol) Depression Answer Date Recorded Patient Health Questionnaire-9 Score 1 12/08/2023 Patient Health Questionnaire-9 Score 1 12/08/2023 Last PHQ-9: Questionnaire Data Not on file 0 12/08/2023 Housing Stability Answer Date Recorded What is your housing situation today? I have pema thorpe 12/08/[address] you li [...] Orientation Straight 03/29/2022 10 :26 AM EDT Last Filed Vital Signs Vital Sign Reading Time Taken Comments Blood Pressure 113/74 06/22/2024 9:11 AM EST Pulse 84 06/22/2024 9:11 AM EST Temperature 36.7 ??C (98 ??F) 06/22/2024 9:11 AM EST Respiratory Rate 16 06/22/2024 9:11 AM EST Oxygen Saturation 98% 06/22/2024 9:11 AM EST Inhaled Oxygen Concentration - - Weight 99.8 kg (220 lb) 06/22/2024 9:11 AM EST Height 175.3 cm (5' 9 ) 12/08/2023 3:34 PM EDT Body Mass Index 32.49 12/08/2023 3:34 PM EDT Plan of Treatment Upcoming Encounters Date Type Department Care Team (Late st Contact Info) Description 08/29/2024 2:45 PM EDT Office Visit [facility] [address] [place] [address] Name, MD Praneeth [address] [place], [place] [phone] Health Maintenance Due Date Last Done Comments Alcohol/Substance Use Screening 1998 Family Planning (PISQ) 2001 Hepatitis A Vaccines (1 of 2 - Risk 2-dose series) 2005 Hepatitis B Vaccines (1 of 3 - 19+ 3-dose series) 2005 COVID-19 Vaccine ( season) 2024 Influenza Vaccine (#1) 2024 , 06/26/2020, 03/21/2019, Additional history exists Depression Screening 12/07/2024 12/08/2023, 12/08/19 24 SDOH Screening 12/07/2024 12/08/2023 Tobacco Screening 12/07/2024 12/08/2023 Lipid Panel 04/11/2029 04/11/2024, 06/26/2020 DTaP/Tdap/Td Vaccines (6 - Td or Tdap) 02/06/2033 02/06/2023, 09/12/2019, 02/09/2015, Additional history exists Zoster Vaccines (1 of 2) 2036 RSV Patients and Patients Aged 60 years or older (1 - 1-dose 75+ series) 2061 Pneumococcal Vaccine: Pediatrics (0 to 5 Years) and At-Risk Patients (6 to 64 Years) Completed 12/08/2023 HIV Screening Completed 04/11/2024, 05/10/2019 Hepatitis C Screening Completed 04/11/2024, 019 HIB Vaccines Aged Out No longer eligi ble based on patient's age to complete this topic HPV Vaccines Aged Out No longer eligi ble based on patient's age to complete this topic IPV Vaccines Aged Out No longer eligi ble based on patient's age to complete this topic Meningococcal Vaccine Aged Out No barbara anjali eligible based on patient's age to complete this topic RSV under 20 months Aged Out No longe r eligible based on patient's age to complete this topic Rotavirus Vaccines Aged Out No longer eligible based on patient's age to complete this topic Procedures Procedure Name Priority Date/Time Associated Diagnosis Comments XR CHEST 2 VIEWS Routine 06/22/2024 9:46 AM EST Chronic cough HEPATITIS B SURFACE ANTIBODY, QUALITATIVE Routine 04/11/2024 11:46 AM EST Schizoaffective disorder, bipolar type (CMS/HCC) Tobacco dependency Screening examination for STI HEPATITIS B SURFACE ANTIGEN, EIA Routine 04/11/2024 11:46 AM EST Schizoaffective disorder, bipolar type (CMS/HCC) Tobacco dependency Screening examination for STI RPR (MONITOR) W/REFL TITER Routine 04/11/2024 11:46 AM EST Schizoaffective disorder, bipolar type (CMS/HCC) Tobacco dependency Screening examination for STI HEPATITIS C AB W/REFL TO HCV RNA, QN, PCR Routine 04/11/2024 11:46 AM EST Schizoaffective disorder, bipolar type (CMS/HCC) Tobacco dependency Screening examination for STI HIV 1/2 ANTIGEN/ANTIBODY, FOURTH GENERATION W/RFL Routine 04/11/2024 11:46 AM EST Schizoaffective disorder, bipolar type (CMS/HCC) Tobacco dependency Screening examination for STI LIPID PANEL, STANDARD Routine 04/11/2024 11:46 AM EST Schizoaffective disorder, bipolar type (CMS/HCC) Tobacco dependency Screening examination for STI COMPREHENSIVE METABOLIC PANEL Routine 04/11/2024 11:46 AM EST Schizoaffective disorder, bipolar type (CMS/HCC) Tobacco dependency Screening examination for STI CBC WITH AUTO DIFFERENTIAL Routine 04/11/2024 11:46 AM EST Schizoaffective disorder, bipolar type (CMS/HCC) Tobacco dependency Screening examination for STI CHLAMYDIA/N. GONORRHOEAE RNA, TMA, UROGENITAL Routine 04/11/2024 11:45 AM EST Schizoaffective disorder, bipolar type (CMS/HCC) Tobacco dependency Screening examination for STI from Last 3 Months Results * XR Chest 2 Views (06/22/2024 9:46 AM EST) Anatomical Region Laterality Modality Chest Radiographic Sara ging 06/22/2024 9:46 AM EST Narrative 06/22/2024 10:12 AM EST ?[facility] ?[address] ?[place] [address] ?XRay Report ? Signed ? Patient: Asif Vargas ?MR#: [id number] ?? [id number] ? : 1985 ?Acct:[id number] ? Age/Sex: 39 / M ?ADM Date: 06/22/24 ? Loc: HO.HHCX ? Attending Dr: Hunter Adler MD ? Ordering Physician: Hunter Adler MD ?? Date of Service: 06/22/24 ?? Procedure(s): XR chest 2V ?? Accession Number(s): [id number] ? cc: Hunter Adler MD ? EXAMINATION: ?? XR CHEST ? CLINICAL INFORMATION: ?? Patient with 1-lmuap-ulhcvgpb of cough. History of tobacco and vape [...] DD/ 0946 ? TD/TT: 06/22/24 1000 ? Water Sponger: ? Procedure Note Donotuseinterpreter, Image - 06/22/2024 [facility] [address] [place] [address] XRay Report Signed Patient: Asif Vargas RMR#: [id number] : 1985Acct:[id number] Age/Sex: 39 / MADM Date: 06/22/24 Loc: HO.HHCX Attending Dr: Hunter Adler MD Ordering Physician: Hunter Adler MD Date of Service: 06/22/24 Procedure(s): XR chest 2V Accession Number(s): [id number] cc: Hunter Adler MD EXAMINATION: XR CHEST CLINICAL INFORMATION: Patient with 0-amarx-iazbolul of cough. History of tobacco and vape [...] by: Andrea Byrd MD 06/22/2024 10:09 AM EST Dictated By: Andrea Byrd MD Signed By: <Electronically signed by Andrea Byrd MD in OV> 06/22/24 1009 DD/ 0946 TD/TT: 06/22/24 1000 Water Sponger: Hunter Adler MD IMG XR PROCEDURES Final Result * (ABNORMAL) CBC auto differential (04/11/2024 11:46 AM EST) White Blood Count 10.8 4.8 - 10.8 X10*3/uL [facility] Red Blood Count 5.31 4.60 - 5.80 X10*6/uL [facility] Hemoglobin 14.1 14.0 - 18.0 g/dl [facility] Hematocrit 43.5 42.0 - 52.0 % [facility] Mean Corpuscular Volume 81.9 80.0 - 98.0 fL [facility] Mean Corpuscular Hemoglobin 26.6(L) 27.0 - 33.0 pg [facility] Mean Corpuscular HGB Conc 32.4 31.0 - 36.0 g/dl [facility] Red Cell Distribution Width 14.4 11.0 - 16.0 % [facility] Platelet Count 203 160 - 400 X10*3/uL [facility] Mean Platelet Volume 9.8 9.4 - 12.4 fL [facility] Neutrophils Percent Auto 80.9(H) 45 - 73 % [facility] Imm Gran Pct Auto 0.7(H) 0.0 - 0.4 % [facility] Lymphocytes Percent Auto 11.1(L) 20 - 40 % [facility] Monocytes Percent Auto 5.5 2 - 11 % [facility] Eosinophils Percent Auto 1.5 0 - 4 % [facility] Basophils Percent Auto 0.3 0 - 2 % [facility] NRBC Pct Auto 0.0 0.0 - 0.2 /100WBC [facility] Neutrophils Absolute Auto 8.7(H) 2.0 - 8.3 x10*3/uL [facility] Imm Gran Abs Auto 0.08(H) 0.00 - 0.03 X10*3/uL [facility] Lymphocytes Absolute Auto 1.2 1.2 - 4.9 X10*3/uL [facility] Monocytes Absolute Auto 0.6 0.1 - 1.2 X10*3/uL [facility] Eosinophils Absolute Auto 0.2 0.0 - 0.4 X10*3/uL [facility] Basophils Absolute Auto 0.0 0.0 - 0.2 X10*3/uL [facility] NRBC Abs Auto 0.000 0.0 - 0.012 X10*3/uL [facility] Blood Venous blood specimen / Unknown 04/11/2024 11:46 AM EST 04/11/2024 11:46 AM EST us Praneeth Lanier MD LAB BLOOD ORDERABLES Final Resul t Performing Organization Address [facility] Co de Phone Number [facility] [address] [place] [phone] * Hepatitis C Antibody with Reflex to HCV, RNA, Quantitative, Real-Time PCR (04/11/2024 11:46 AM EST) Hepatitis C Antibody Nonreactive Nonreactive [facility] Comment:Antibodies to HCV no t detected; does not exclude early acuteHCV infection. Blood Venous blood specimen / Unknown 04/11/2024 11:46 AM EST 04/11/2024 11:46 AM EST us Praneeth Lanier MD LAB BLOOD ORDERABLES Final Resul t Performing Organization Address [facility] Phone Number [facility] [address] [place] [phone] * Hepatitis B surface antigen, EIA (04/11/2024 11:46 AM EST) Hepatitis B Surface Ag Negative Negative [facility] Blood Venous blood specimen / Unknown 04/11/2024 11:46 AM EST 04/11/2024 11:46 AM EST us Praneeth Lanier MD LAB BLOOD ORDERABLES Final Resul t Performing Organization Address [facility] Phone Number [facility] [address] [place] [phone] * RPR (Monitor) with Reflex to??Titer (04/11/2024 11:46 AM EST) RPR (Monitor) w/Refl Titer NON-REACTI VE NON-REACT AKI [facility] Comment:THIS TEST WAS PERFOR MED AT:[employer] [place] [phone] LIM MD Rapid Plasma Reagin Ab Titer TNP [facility] Blood Venous blood specimen / Unknown 04/11/2024 11:46 AM EST 04/11/2024 11:46 AM EST us Praneeth Lanier MD LAB BLOOD ORDERABLES Final Resul t Performing Organization Address [facility]/ZIP Co de Phone Number [facility] [address] [place] [phone] * HIV-1/2 Antigen and Antibodies, Fourth Generation, with Reflexes (04/11/2024 11:46 AM EST) HIV AB/AG Nonreactive Nonreactive [facility] Comment:HIV-1 p24 Ag and/or HIV-1/HIV-2 Ab not detected.A test result that is nonreactive does not exclude thepossibility of exposure to or infection with HIV-1 and/orHIV-2. Nonreactive results in this assay for individualswith prior exposure to HIV-1 and/or HIV-2 may be due toantigen and antibody levels that are below the limit ofdetection of this assay.[employer] HIV Ag/Ab Combo assay result andsupplemental assay results should be interpreted inconjunction with the patient's clinical presentation,history and other laboratory results. If the results areinconsistent with clinical evidence, additional testing issuggested to confirm the result. Blood Venous blood specimen / Unknown 04/11/2024 11:46 AM EST 04/11/2024 11:46 AM EST us Praneeth Lanier MD LAB BLOOD ORDERABLES Final Resul t Performing Organization Address City/[facility]/ZIP Co de Phone Number [facility] [address] [place] [phone] * Hepatitis B Surface Antibody, Qualitative (04/11/2024 11:46 AM EST) ~Hepatitis B Surface Antibody REACTIVE Nonreactive [facility] Comment:REACTIVE: > 11.99 mI U/mL Blood Venous blood specimen / Unknown 04/11/2024 11:46 AM EST 04/11/2024 11:46 AM EST us Praneeth Lanier MD LAB BLOOD ORDERABLES Final Resul t Performing Organization Address [facility] de Phone Number [facility] [address] [place] [phone] * (ABNORMAL) Lipid Panel, Standard (04/11/2024 11:46 AM EST) Triglycerides 99 <150 mg/dL [facility] Comment:Desirable Triglyceri de: less than 150 mg/dLBorderline High Triglyceride 150-199 mg/dLHigh Triglyceride: 200-499 mg/dLVery High Triglyceride: greater than or equal to 5OO mg/dL Cholesterol 162 <200 mg/dL [facility] Comment:Desirable Cholestero l: less than 200 mg/dLBorderline High Cholesterol: 200-239 mg/dLHigh Cholesterol: greater than 239 mg/dL LDL Cholesterol Calculated 104(H) <100 mg/dL [facility] Comment:Desirable LDL: less than 100 mg/dLNear Optimal/Above Optimal LDL: 110- 129 mg/dLBorderline High LDL: 130-159 mg/dLHigh LDL: 160-189 mg/dLVery High LDL: greater than or equal to 190 mg/dL HDL Cholesterol 39(L) >40 mg/dL [facility] Comment:Desirable HDL: great er than 40 mg/dL Note: This HDL assay may give artificially low results in patients with liver disease. Blood Venous blood specimen / Unknown 04/11/2024 11:46 AM EST 04/11/2024 11:46 AM EST us Praneeth Lanier MD LAB BLOOD ORDERABLES Final Resul t Performing Organization Address City/[facility] Co de Phone Number [facility] [address] [place] [phone] * (ABNORMAL) Comprehensive Metabolic Panel (04/11/2024 11:46 AM EST) Sodium 145 135 - 145 mmol/L [facility] Potassium 3.8 3.3 - 5.1 mmol/L [facility] Chloride 113(H) 96 - 108 mmol/L [facility] Carbon Dioxide 25 22 - 29 mmol/L [facility] Anion Gap 11(L) 12 - 20 [facility] Urea Nitrogen (BUN) 26(H) 9 - 16 mg/dL [facility] Creatinine, Serum 1.05 0.5 - 1.4 mg/dL [facility] Estimated Glomerular Filt Rate >60 [facility] Comment:Chronic Kidney Disea se: Estimated GFR < 60 mL/min/1.36d8Tyvyjz Kidney Disease: Estimated GFR < 15 mL/min/1.73m2 Glucose 119(H) 60 - 115 mg/dL [facility] Calcium 9.3 8.4 - 10.2 mg/dL [facility] Bilirubin, Total 0.2 0.0 - 1.0 mg/dL [facility] Aspartate Amino Transferase 36 5 - 37 U/L [facility] Alanine Aminotransferase 55(H) 0 - 40 U/L [facility] Total Protein 6.7 6.5 - 8.0 g/dL [facility] Albumin Level 4.2 3.5 - 5.0 g/dL [facility] Alkaline Phosphatase 76 39 - 117 U/L [facility] Blood Venous blood specimen / Unknown 04/11/2024 11:46 AM EST 04/11/2024 11:46 AM EST us Praneeth Lanier MD LAB BLOOD ORDERABLES Final Resul t [facility] [address] [place] [phone] * Chlamydia/N. Gonorrhoeae RNA, TMA, Urogenitial (04/11/2024 11:45 AM EST) CT PCR NOT DETECTED Not Detect. [facility] Comment:A not detected test result does not exclude the possibilityof infection because test results can be affected byimproper specimen collection, concurrent antibiotic therapy,or the number of organisms in the specimen which may bebelow the sensitivity of the test. As with many diagnostictests, results from the Xpert CT/NG assay should beinterpreted in conjunction with other laboratory andclinical data available to the clinician.Xpert CT/NG performance has not been evaluated in patientsless than 14 years of age. The assay should not be used forthe evaluationof suspected sexual abuse or for other medico-legalindications. Additional testing is recommended in anycircumstance when false positive or false negative resultscould lead to adverse medical, social or psychologicalconsequences. NG PCR NOT DETECTED Not Detect. [facility] Comment:A not detected test result does not exclude the possibilityof infection because test results can be affected byimproper specimen collection, concurrent antibiotic therapy,or the number of organisms in the specimen which may bebelow the sensitivity of the test. As with many diagnostictests, results from the Xpert CT/NG assay should beinterpreted in conjunction with other laboratory andclinical data available to the clinician.Xpert CT/NG performance has not been evaluated in patientsless than 14 years of age. The assay should not be used forthe evaluationof suspected sexual abuse or for other medico-legalindications. Additional testing is recommended in anycircumstance when false positive or false negative resultscould lead to adverse medical, social or psychologicalconsequences. Urine, Random 04/11/2024 11: 45 AM EST 04/11/2024 11:51 AM EST Narrative [facility] - 04/11/2024 1:35 PM EST Urine us Praneeth Lanier MD LAB MICROBIOLOGY - GENERAL ORDER LASHAWN Final Result [facility] [address] [place] [phone] from Last 3 Months Insurance [place] [id number] [facility] [address] [place] [address] [place] [phone] Care Teams Production Control Supervisor Relationship Specialty Start Date End Date Name, MD Praneeth [address] [place] [address] PCP - General Family Medicine 05/04/16
[2024-06-23 10:39] LABS: Adenovirus PCR Not Detected (Not Detect.); Bordetella parapertussis PCR Not Detected (Not Detect.); Bordetella pertussis PCR Not Detected (Not Detect.); Chlamydia pneumoniae PCR Not Detected (Not Detect.); Coronavirus 229E PCR Not Detected (Not Detect.); Coronavirus HKU1 PCR Not Detected (Not Detect.); Coronavirus NL63 PCR Not Detected (Not Detect.); Coronavirus OC43 PCR Not Detected (Not Detect.); Human metapneumovirus PCR Not Detected (Not Detect.); Influenza A PCR Not Detected (Not Detect.); Influenza B PCR Not Detected (Not Detect.); Mycoplasma pneumoniae PCR Not Detected (Not Detect.); Parainfluenza 1 PCR Not Detected (Not Detect.); Parainfluenza 2 PCR Not Detected (Not Detect.); Parainfluenza 3 PCR Not Detected (Not Detect.); Parainfluenza 4 PCR Not Detected (Not Detect.); RSV PCR Not Detected (Not Detect.); Rhino/Enterovirus PCR Not Detected (Not Detect.)
[2024-06-23 10:49] LABS: SARS-CoV-2 PCR Not Detected (Not Detect.)
== END 2024-06-22 00:01 | disposition home or self-care (01) ==
LOC: HO.LNP
PROVIDERS: Visit Provider Family Medicine
DX: R05.3 Chronic cough (principal); Z11.52 Encounter for screening for COVID-19; Z13.83 Encounter for screening for respiratory disorder NEC
CPT/HCPCS: 87633

== ENCOUNTER 2024-06-22 09:46 | Outpatient (REF) | payer MEDICAID, SELFPAY ==
--- NOTE | ~2024-06-22 | XR_ITS ---
EXAMINATION: XR CHEST CLINICAL INFORMATION: Patient with 6-nmxas-wmxaytkp of cough. History of tobacco and vape use. COMPARISON: 01/30/2016. TECHNIQUE: 2 views of the chest were obtained. FINDINGS: The cardiac, hilar, and mediastinal contours are normal. There is a calcified lymph node in the right paratracheal region. The lungs are clear bilaterally. There is no pneumothorax or pleural effusion. There is no focal osseous or soft tissue abnormality. XR/XR chest 2V IMPRESSION: No active pulmonary disease. Electronically signed by: Andrea Byrd MD 06/22/2024 10:09 AM DAVIN
== END 2024-06-22 09:47 | disposition home or self-care (01) ==
LOC: HO.HHCX 09:46
PROVIDERS: Visit Provider Family Medicine
DX: R05.3 Chronic cough (principal)
CPT/HCPCS: 71046

== ENCOUNTER → 2024-06-22 09:46 | Outpatient (BNV) | payer MEDICAID, SELFPAY | PROVIDERS: Visit Provider Radiology Diagnostic Radiology | DX: R05.9 Cough, unspecified (principal) | CPT/HCPCS: 71046 ==

== ENCOUNTER 2024-11-06 10:23 | Outpatient (REF) | payer MEDICAID, SELFPAY ==
[2024-11-06 10:36] LABS: MANUAL DIFF FLAG NO
[2024-11-06 11:24] LABS: Basophils Percent Auto 0.3 % (0-2); Eosinophils Absolute Auto 0.1 X10*3/uL (0.0-0.4); Hematocrit 45.2 % (42.0-52.0); Hemoglobin 14.3 g/dl (14.0-18.0); Imm Gran Abs Auto 0.04 X10*3/uL (0.00-0.03); Imm Gran Pct Auto 0.6 % (0.0-0.4); Lymphocytes Absolute Auto 1.3 X10*3/uL (1.2-4.9); Lymphocytes Percent Auto 20.6 % (20-40); Mean Corpuscular HGB Conc 31.6 g/dl (31.0-36.0); Mean Corpuscular Hemoglobin 25.2 pg (27.0-33.0); Mean Corpuscular Volume 79.6 fL (80.0-98.0); Mean Platelet Volume 10.1 fL (9.4-12.4); Monocytes Absolute Auto 0.4 X10*3/uL (0.1-1.2); Monocytes Percent Auto 6.2 % (2-11); Neutrophils Absolute Auto 4.4 x10*3/uL (2.0-8.3); Neutrophils Percent Auto 71.3 % (45-73); Platelet Count 189 X10*3/uL (160-400); Red Blood Count 5.68 X10*6/uL (4.60-5.80); Red Cell Distribution Width 14.8 % (11.0-16.0); White Blood Count 6.2 X10*3/uL (4.8-10.8)
--- OUTSIDE RECORDS SUMMARY | 2024-11-06 12:06 | XMS_ITS | Clinical Summary ---
Author Organization [facility] Address [address] [place] [address] Care Team Providers Care [employer]ging Technologies Director Name Role Phone Unavailable Primary Care Provider Unavailabl e Social History Tobacco Use Types Packs/Day Years Used Date Smoking Tobacco: Never Assessed Sex and Gender Information Value Date Recorded Sex Assigned at Not on file Legal Sex Male 3:56 PM EST Gender Identity Not on file Sexual Orientation Not on file Plan of Treatment Health Maintenance Due Date Last Done Comments DTaP,Tdap,and Td Vaccines (1 - Tdap) 2005 Hepatitis B Vaccines (1 of 3 - 19+ 3-dose series) 2005 COVID-19 Vaccine (2023-2 5 season) 2024 Cholesterol Screening (Lipid Panel) 03/14/2024 Depression Screening 03/14/2024 HIV Screening 03/14/2024 Hepatitis C Screening 03/14/2024 Social Influencers of Health Screening 03/14/2024 Influenza Vaccine (Season Ended) 2025 HIB Vaccines Aged Out No longer eligi [...] patient's age to complete this topic Meningococcal B Vaccine Aged Out No l onger eligible based on patient's age to complete [...]
== END 2024-11-06 10:24 | disposition home or self-care (01) ==
LOC: HO.LAB 10:23
PROVIDERS: PCP Internal Medicine Geriatric Medicine; Visit Provider Nurse Practitioner Psychiatric/Mental Health
DX: Z79.899 Other long term (current) drug therapy (principal)
CPT/HCPCS: 36415; 85025

== ENCOUNTER 2024-12-19 08:20 | Outpatient (REF) | payer MEDICAID, SELFPAY ==
--- OUTSIDE RECORDS SUMMARY | 2024-12-19 08:32 | XMS_ITS | Encounter Summary ---
Author Organization [employer] Address [address] [facility] 7 [place] [address] Care Team Providers Care Geothermal Operations Engineer Name Role Phone Name, Praneeth LECHUGA Primary Care Provider [phone] Reason for Visit * Reason Comments Med Refill Encounter Details Date Type Department Care Team ([facility] st Contact Info) Description 12/02/2023 Refill [facility] [address] [place], [place] [phone] Name, MD Praneeth [address] [place] [address] Nicotine dependence, uncomplicated, unspecified nicotine product type Social History Tobacco Use Types Packs/Day Years Used Date Smoking Tobacco: Every Day Cigarettes Smokeless Tobacco: Never Housing Stability Answer Date Recorded What is your housing situation today? I do not have housing (Staying with others, in a hotel, in a skilled nursing, living outside on the street, on a [...] as of this encounter Plan of Treatment Not on file documented as of this encounter Visit Diagnoses Diagnosis Nicotine dependence, uncomplicated, unspecified nicotine product type documented in this encounter Care Teams Geothermal Operations Engineer Relationship Specialty Start Date End Date Name, MD Praneeth [address] [place] [address] PCP - General Family Medicine 05/04/16 documented as of this encounter
--- OUTSIDE RECORDS SUMMARY | 2024-12-19 08:32 | XMS_ITS | Clinical Summary ---
Author Organization [facility] Address [address] [place] [address] Care Team Providers Care Immigration Inspector Name Role Phone Unavailable Primary Care Provider [...] season) 2024 Cholesterol Screening (Lipid Panel) 03/14/2024 HIV Screening 03/14/2024 Hepatitis C Screening 03/14/2024 Social Influencers of Health Screening 03/14/2024 Depression Screening 05/30/2024 Influenza Vaccine (#1) 2025 HIB Vaccines Aged Out No longer [...] 5 Years) and At-Risk Patients (6 to 49 Years) Aged Out No longer eligible b ased on patient's age to complete this topic RSV Immunization Patients Un alex 20 months Aged Out No longer eligible b ased on patient's age to complete this topic Varicella Vaccines Aged Out No longer eligible based on patient's age to complete this topic
[2024-12-19 08:37] LABS: MANUAL DIFF FLAG NO
[2024-12-19 09:39] LABS: Hematocrit 43.4 % (42.0-52.0); Hemoglobin 14.5 g/dl (14.0-18.0); Imm Gran Abs Auto 0.06 X10*3/uL (0.00-0.03); Imm Gran Pct Auto 0.9 % (0.0-0.4); Lymphocytes Absolute Auto 1.3 X10*3/uL (1.2-4.9); Mean Corpuscular HGB Conc 33.4 g/dl (31.0-36.0); Mean Corpuscular Hemoglobin 25.8 pg (27.0-33.0); Mean Corpuscular Volume 77.1 fL (80.0-98.0); NRBC Abs Auto 0.000 X10*3/uL (0.0-0.012); NRBC Pct Auto 0.0 /100WBC (0.0-0.2); Platelet Count 178 X10*3/uL (160-400); Red Blood Count 5.63 X10*6/uL (4.60-5.80); White Blood Count 6.8 X10*3/uL (4.8-10.8)
== END 2024-12-19 08:21 | disposition home or self-care (01) ==
LOC: HO.LAB 08:20
PROVIDERS: PCP Internal Medicine Geriatric Medicine; Visit Provider Nurse Practitioner Psychiatric/Mental Health
DX: Z79.899 Other long term (current) drug therapy (principal)
CPT/HCPCS: 36415; 85025

== ENCOUNTER 2025-01-08 13:16 | Outpatient (REF) | payer MEDICAID, SELFPAY ==
[2025-01-08 13:29] LABS: MANUAL DIFF FLAG NO
--- OUTSIDE RECORDS SUMMARY | 2025-01-08 14:06 | XMS_ITS | Clinical Summary ---
Author Organization [facility] Address [address] [place] [address] Care Team Providers Care Table Worker Name Role Phone Unavailable Primary Care Provider [...]
--- OUTSIDE RECORDS SUMMARY | 2025-01-08 14:06 | XMS_ITS | Encounter Summary ---
Author Organization [employer] Address [address] [facility] 7 [place] [address] Care Team Providers Care Aerographer Name Role Phone Name, Praneeth LECHUGA Primary Care Provider [phone] Reason for Visit * Reason Comments Med Refill Encounter Details Date Type Department Care Team ([facility] st Contact Info) Description 12/02/2023 Refill [facility] MEDICINE [address] [place], [place] [phone] Name, MD Praneeth [address] [place] [address] Nicotine dependence, uncomplicated, unspecified nicotine product type [...] type documented in this encounter Care Teams Aerographer Relationship Specialty Start Date End Date Name, MD Praneeth [address] [place] [address] PCP - General Family Medicine 05/04/16 documented as of this encounter
[2025-01-08 14:21] LABS: Hematocrit 45.3 % (42.0-52.0); Hemoglobin 14.9 g/dl (14.0-18.0); Imm Gran Abs Auto 0.04 X10*3/uL (0.00-0.03); Imm Gran Pct Auto 0.5 % (0.0-0.4); Lymphocytes Absolute Auto 1.8 X10*3/uL (1.2-4.9); Mean Corpuscular HGB Conc 32.9 g/dl (31.0-36.0); Mean Corpuscular Hemoglobin 25.6 pg (27.0-33.0); Mean Corpuscular Volume 77.8 fL (80.0-98.0); NRBC Abs Auto 0.000 X10*3/uL (0.0-0.012); NRBC Pct Auto 0.0 /100WBC (0.0-0.2); Platelet Count 199 X10*3/uL (160-400); Red Blood Count 5.82 X10*6/uL (4.60-5.80); White Blood Count 7.7 X10*3/uL (4.8-10.8)
== END 2025-01-08 13:17 | disposition home or self-care (01) ==
LOC: HO.LABR 13:16
PROVIDERS: Visit Provider Nurse Practitioner Psychiatric/Mental Health
DX: Z79.899 Other long term (current) drug therapy (principal)
CPT/HCPCS: 36415; 85025

== ENCOUNTER 2025-02-08 11:44 | Outpatient (REF) | payer MEDICAID, SELFPAY ==
--- NOTE | ~2025-02-08 | XR_ITS ---
EXAMINATION: XR CHEST CLINICAL INFORMATION: Patient vapes nicotine, cough for the past year COMPARISON: None available. TECHNIQUE: 2 views of the chest were obtained. FINDINGS: Heart size is normal. Again seen is a calcified lymph node in the chest right midline near the root of the aorta. Lungs are clear and well expanded. There is no pleural effusion. XR/XR chest 2V IMPRESSION: No acute disease. Suspected calcified granuloma/lymph node Electronically signed by: Austyn Stinson MD 02/08/2025 12:04 PM EDT
--- OUTSIDE RECORDS SUMMARY | 2025-02-08 10:40 | XMS_ITS | Encounter Summary ---
Author Organization [employer] Address [address] [facility] 7t [place] [address] Care Team Providers Care Fish Roe Technician Name Role Phone Name, Praneeth LECHUGA Primary Care Provider [phone] Reason for Visit * Reason Comments Cough Encounter Details Date Type Department Care Team ([facility] Contact Info) Description 02/08/2025 10:40 AM EDT Office Visit [facility] [address] [place] [address] Name, MD Praneeth [address] [place] [address] Chronic cough (Primary Dx); Tobacco dependency; Schizoaffective disorder, unspecified type (CMS/HCC) Social History Tobacco Use Types Packs/Day Years [...] Sign Reading Time Taken Comments Blood Pressure 121/84 02/08/2025 10:45 AM EDT Pulse 100 02/08/2025 10:45 AM EDT Temperature 36.7 C (98 F) 02/08/2025 10:45 AM EDT Respiratory Rate 14 02/08/2025 10:45 AM EDT Oxygen Saturation 98% 02/08/2025 10:45 AM EDT Inhaled Oxygen Concentration - - Weight 115 kg (252 lb 9.6 oz) 02/08/2025 10:45 A M EDT Height 175.3 cm (5' 9 ) 02/08/2025 10:45 AM EDT Body Mass Index 37.3 02/08/2025 10:45 AM EDT documented in this encounter Progress Notes * Praneeth Lanier MD - 02/08/2025 10:40 AM EDT Subjective Patient ID: Asif Vargas is a 39 y.o. male who presents for Cough. Patient comes complaining of 1 year of cough on and off sometimes associated with productive sputum. The patient believes that he was infected with some bacteria when he was staying at an inpatient psychiatric unit about a year ago. He has a personal history of schizophrenia. The patient is also a smoker. The patient explains to me that he stopped cigarettes and he has been vaping nicotine packets and is trying to cut down. He does not have any weight loss, no night sweats, no fevers or chills,no chest pains, no shortness of breath. His oxygen saturation is normal. He has albuterol inhaler at home that he uses sometimes with some improvement. He does not recall if he was tested for TB when he was in inpatient psychiatric facility but I suspect he did have testing. Review of Systems Constitutional: Negative for chills, fatigue and fever. HENT: Negative for sore throat. Respiratory: Positive for cough. Negative for chest tightness and shortness of breath. Cardiovascular: Negative for chest pain, palpitations and leg swelling. Gastrointestinal: Negative for abdominal pain and blood in stool. Objective Vitals: 02/08/25 1045 BP: 121/84 BP Location: Left arm Patient Position: Sitting BP Cuff Size: Large adult Pulse: 100 Resp: 14 Temp: 98 ??F (36.7 ??C) TempSrc: Temporal SpO2: 98% Weight: 252 lb 9.6 oz (115 kg) Height: 5' 9 (1.753 m) Physical Exam Constitutional: Appearance: Normal appearance. Cardiovascular: Rate and Rhythm: Normal rate and regular rhythm. Heart sounds: No murmur heard. Pulmonary: Effort: Pulmonary effort is normal. No respiratory distress. Breath sounds: No wheezing, rhonchi or rales. Abdominal: Palpations: Abdomen is soft. Tenderness: There is no abdominal tenderness. Musculoskeletal: Right lower leg: No edema. Left lower leg: No edema. Neurological: Mental Status: He is alert. Assessment/Plan Diagnoses and all orders for this visit: Chronic cough Comments: COPD? Related to history fo asthma? I recommended to continue rescue albuterol, quit smoking Check testing listed below I will probably send him to PFTs at his next visit Orders: - XR Chest 2 Views; Future - T-SPOT??.TB; Future Tobacco dependency - XR Chest 2 Views; Future - T-SPOT??.TB; Future Schizoaffective disorder, unspecified type ([facility]) Future Appointments Date Time Provider Department Center 02/28/2025 11:30 AM Praneeth Lanier MD [facility] 04/30/2025 9:30 AM Praneeth Lanier MD MEDICINE [facility] documented in this encounter Plan of Treatment Upcoming Encounters Date Type Department Care Team (Late st Contact Info) Description 02/28/2025 11:30 AM EDT Office Visit [facility] MEDICINE [address] [place] [address] Praneeth Lanier MD [address] [place] [address] [phone] 04/30/2025 9:30 AM EST Office Visit [address] [phone] Praneeth Lanier MD [address] [place] [address] [phone] Scheduled Orders Name Type Priority Associated Diagnoses Orde r Schedule T-SPOT .TB Lab Routine Chronic cough Tobacco dependency Expected: 02/08/2025 (Approximate), Expires: 02/08/2026 documented as of this encounter Procedures Procedure Name Priority Date/Time Associated Diagnosis Comments XR CHEST 2 VIEWS Routine 02/08/2025 11:5 6 AM EDT Chronic cough Tobacco dependency documented in this encounter Results * XR Chest 2 Views (02/08/2025 11:56 AM EDT) Anatomical Region Laterality Modality Chest Radiographic Sara ging 02/08/2025 11:5 6 AM EDT Narrative 02/08/2025 12:07 PM EDT [address] [address] XRay Report Signed Patient: Asif Vargas MR#: [id number] 397 : 1985 Acct:[id number] Age/Sex: 39 / M ADM Date: 02/08/25 [facility]: Praneeth Lanier MD Ordering Physician: Praneeth Lanier MD Date of Service: 02/08/25 Procedure(s): XR chest 2V Accession Number(s): [id number] cc: Praneeth Lanier MD Reason for Exam: Patient vapes nicotine, cough for the past year EXAMINATION: XR CHEST CLINICAL INFORMATION: Patient vapes nicotine, cough for the past year COMPARISON: None available. TECHNIQUE: 2 views of the chest were obtained. FINDINGS: Heart size is normal. Again seen is a calcified lymph node in the chest right midline near the root of the aorta. Lungs are clear and well expanded. There is no pleural effusion. XR/XR chest 2V IMPRESSION: No acute disease. Suspected calcified granuloma/lymph node Electronically signed by: Austyn Stinson MD 02/08/2025 12:04 PM EDT RP Dictated By: Austyn Stinson MD Signed By: <Electronically signed by Austyn Stinson MD in OV> 02/08/25 1204 DD/ 1156 TD/TT: 02/08/25 1157 Head Greenskeeper: Procedure Note Donotuseinterpreter, Image - 02/08/2025 [place] [address] XRay Report Signed Patient: Asif Vargas RMR#: [id number] : 1985Acct:[id number] Age/Sex: 39 / MADM Date: 02/08/25 Loc: [facility] Attending Dr: Praneeth Lanier MD Ordering Physician: Praneeth Lanier MD Date of Service: 02/08/25 Procedure(s): XR chest 2V Accession Number(s): [id number] cc: Praneeth Lanier MD Reason for Exam: Patient vapes nicotine, cough for the past year EXAMINATION: XR CHEST CLINICAL INFORMATION: Patient vapes nicotine, cough for the past year COMPARISON: None available. TECHNIQUE: 2 views of the chest were obtained. FINDINGS: Heart size is normal. Again seen is a calcified lymph node in the chest right midline near the root of the aorta. Lungs are clear and well expanded. There is no pleural effusion. XR/XR chest 2V IMPRESSION: No acute disease. Suspected calcified granuloma/lymph node Electronically signed by: Austyn Stinson MD 02/08/2025 12:04 PM EDT RP Dictated By: Austyn Stinson MD Signed By: <Electronically signed by Austyn Stinson MD in OV> 02/08/25 1204 DD/ 1156 TD/TT: 02/08/25 1157 Head Greenskeeper: Praneeth Lanier MD IMG XR PROCEDURES Final Result documented in this encounter Visit Diagnoses Diagnosis Chronic cough- Primary Cough Tobacco dependency Tobacco use disorder Schizoaffective disorder, unspecified type (CMS/HCC) documented in this encounter Additional Health Concerns Assessment Noted Time PHQ-9 Depression Total Score: 1 12/08/19 24 3:37 PM EDT documented as of this encounter Care Teams Fish Roe Technician Relationship Specialty Start Date End Date Name, MD Praneeth [address] [place] [address] PCP - General Family Medicine 05/04/16 documented as of this encounter
--- OUTSIDE RECORDS SUMMARY | 2025-02-08 14:12 | XMS_ITS | Encounter Summary ---
Author Organization [employer] Address [address] [facility] [place] [address] Care Team Providers Care Bracelet Former Name Role Phone Name, Praneeth LECHUGA Primary Care Provider [phone] Reason for Visit * Reason Onset Date Comments Call Back Request 10/26/2023 Encounter Details Date Type Department Care Team ([facility] st Contact Info) Description 10/26/2023 Telephone [facility] MEDICINE [address] [place], [place] [phone] Name, MD Praneeth [address] [place] [address] Call Back Request Social History Tobacco Use Types Packs/Day Years Used Date Smoking Tobacco: Every Day Cigarettes Smokeless Tobacco: Never Housing Stability Answer Date Recorded What is your housing situation today? I do not have housing (Staying with others, in a hotel, in a senior care, living outside on the street, on a [...] states pt. Was prescribe Nicotine patches from [facility], but now he discharge from that facility and looking for nicotine patches rx by PCP. Pt. Is asking for rx. 7 mg Nicotine patches. Please review and advise. * Telephone Encounter - Estephanie Manrique - 10/26/2023 2:46 PM EDT Tc from [facility] requesting a call back, stated pt needs medications in specific nicotine patches. Please contact Lauren at [phone] documented in this encounter Plan of Treatment Upcoming Encounters Date Type Department Care Team (Late st Contact Info) Description 02/28/2025 11:30 AM EDT Office Visit [facility] MEDICINE [address] [place] [address] Name, MD Praneeth [address] [place] [address] 04/30/2025 9:30 AM EST Office Visit [facility] MEDICINE [address] [place] [address] Name, [place] [address] documented as of this encounter Visit Diagnoses Not on filedocumented in this encounter Care Teams Bracelet Former Relationship Specialty Start Date End Date Name, [place] [address] PCP - General Family Medicine 05/04/16 documented as of this encounter
--- OUTSIDE RECORDS SUMMARY | 2025-02-08 14:12 | XMS_ITS | Encounter Summary ---
Author Organization [employer] Address [address] [facility] 7 [place] [address] Care Team Providers Care Tool Mechanic Name Role Phone Name, Praneeth LECHUGA Primary Care Provider [phone] Reason for Visit * Reason Comments Med Refill Encounter Details Date Type Department Care Team ([facility] st Contact Info) Description 12/02/2023 Refill [facility] MEDICINE [address] [place], [place] [phone] Name, MD Praneeth [address] [place] [address] Nicotine dependence, uncomplicated, unspecified nicotine product type Social History Tobacco Use Types Packs/Day Years Used Date Smoking Tobacco: Every Day Cigarettes Smokeless Tobacco: Never Housing Stability Answer Date Recorded What is your housing situation today? I do not have housing (Staying with others, in a hotel, in a fci, living outside on the street, on a [...] Description 02/28/2025 11:30 AM EDT Office Visit [facility] MEDICINE [address] [place] [phone] NamePraneeth MD [address] [place] [phone] 04/30/2025 9:30 AM EST Office Visit [address] [address] NamePraneeth MD [address] [place] [address] documented as of this encounter Visit Diagnoses Diagnosis Nicotine dependence, uncomplicated, unspecified nicotine product type documented in this encounter Care Teams Tool Mechanic Relationship Specialty Start Date End Date Praneeth Lanier MD [address] [place] [phone] PCP - General Family Medicine 05/04/16 documented as of this encounter
--- OUTSIDE RECORDS SUMMARY | 2025-02-08 14:12 | XMS_ITS | Encounter Summary ---
Author Organization [employer] Address [address] [facility] 7t [place] [address] Care Team Providers Care Heavy Duty Mechanic Farm Equipment Name Role Phone Name, Praneeth LECHUGA Primary Care Provider [phone] Encounter Details Date Type Department Care Team (Latest Contact Info) Description 02/08/2025 Travel Social History Tobacco Use Types Packs/Day Years [...] Description 02/28/2025 11:30 AM EDT Office Visit [address] [address] NamePraneeth MD [address] [place] [address] 04/30/2025 9:30 AM EST Office Visit [address] [address] NamePraneeth MD [address] [place] [address] documented as of this encounter Visit Diagnoses Not on filedocumented in this encounter Additional Health Concerns Assessment Noted Time PHQ-9 Depression Total Score: 1 12/08/19 24 3:37 PM EDT documented as of this encounter Care Teams Heavy Duty Mechanic Farm Equipment Relationship Specialty Start Date End Date Praneeth Lanier MD [address] [place] [phone] PCP - General Family Medicine 05/04/16 documented as of this encounter
--- OUTSIDE RECORDS SUMMARY | 2025-02-08 14:12 | XMS_ITS | Clinical Summary ---
Author Organization [employer] Address [address] [facility] 7t [place] [address] Care Team Providers Care [facility] Service [facility] Director Name Role Phone Name, Praneeth LECHUGA Primary Care Provider [phone] Allergies Active Allergy Reactions Criticality Noted Date Comments Haloperidol High 09/11/2013 Other reaction(s): Dystonia Olanzapine 03/09/2024 Oxycodone Dizziness 10/12/2024 Ziprasidone 09/11/2013 Medications * This document contains [...] the muscle every 8 (eight) weeks. Active albuterol 108 (90 Base) MCG/ACT inhaler Inhale 2 puffs every 6 (six) hours if needed for wheezing. 18 g 11 5 10/13/19 26 Active omeprazole OTC (PriLOSEC OTC) 20 MG EC tabletIndications:G astroesophageal reflux disease without esophagitis Take 1 tablet (20 mg) by mouth before breakfast. Do not crush, chew, or split. 30 tablet 2 5 02/25/20 Active Active Problems Problem Noted Date Diagnosed Date Nicotine abuse 03/09/2024 Elevation of level of transa minase and lactic acid dehydrogenase (LDH) 03/09/2024 Schizoaffective disorder 01/25/2022 Bipolar affective disorder, current episode manic with psychotic symptoms 11/26/2020 Mild intermittent asthma 05/11/2016 Asthma 09/11/2013 Gastroesophageal reflux disease 09/11/2013 Depression 12/11/2010 Cannabis abuse 12/07/2010 Encounters Date Type Department Care Team Description 02/08/2025 10:40 AM EDT Office Visit [facility] [address] [place] [address] [phone] Praneeth Lanier MD Chronic cough (Primary Dx); Tobacco dependency; Schizoaffective disorder, unspecified type ([facility]/HCC) 02/08/2025 Travel 11/26/2024 Telephone [facility] [address] [place], [place] [phone] Praneeth Lanier MD Nurse Triage 11/09/2024 Patient Outreach [facility] [address] [place], [place] [phone] Praneeth Lanier MD Care Coordination (C3/CM Outreach) from Last 3 Months Immunizations Immunization Administration Dates Next Due Influenza injectable quadriv alent IIV4 with preservative 04/08/2017,05/11/2016 Influenza injectable quadriv alent preservative free 03/11/2023,06/26/2020,03/21/2019 Influenza, IIV3, injectable 03/24/2011, 1 Pneumococcal Conjugate PCV 20 12/08/2023 Td (adult), 5 Lf tetanus tox oid, preservative free, adsorbed 02/09/2015 Tdap 02/06/2023, 0,02/09/2015,2008 Social History Tobacco Use Types Packs/Day Years [...] Mass Index 37.3 02/08/2025 10:45 AM EDT Plan of Treatment Upcoming Encounters Date Type Department Care Team (Late st Contact Info) Description 02/28/2025 11:30 AM EDT Office Visit [facility] [address] [place] [address] [phone] Name, MD Praneeth [address] [place] [address] [phone] 04/30/2025 9:30 AM EST Office Visit [address] [phone] Name, MD Praneeth [address] [place] [address] Health Maintenance Due Date Last Done Comments Disability Screening 1986 Alcohol/Substance Use Screening 1998 Family Planning (PISQ) 2001 HPV Vaccines (1 - Male 3-dose series) 2001 Hepatitis B Vaccines (1 of 3 - 19+ 3-dose series) 2005 Depression Screening 12/07/2024 12/08/2023, 12/08/19 24 SDOH Screening 12/07/2024 12/08/2023 COVID-19 Vaccine ( season) 2025 Influenza Vaccine (#1) 2025 , 06/26/2020, 03/21/2019, Additional history exists Tobacco Screening 02/08/2026 02/08/2025 Lipid Panel 04/11/2029 04/11/2024, 06/26/2020 DTaP/Tdap/Td Vaccines (6 - Td or Tdap) 02/06/2033 02/06/2023, 09/12/2019, 02/09/2015, Additional history exists Zoster Vaccines (1 of 2) 2036 RSV Patients and Patients Aged 60 years or older (1 - 1-dose 75+ series) 2061 Pneumococcal Vaccine: Pediatrics (0 to 5 Years) and At-Risk Patients (6 to 49) Years Completed 12/08/2023 HIV Screening Completed 04/11/2024, 05/10/2019 [...] 6 AM EDT Chronic cough Tobacco dependency HEPATITIS C AB W/REFL TO HCV RNA, [...] examination for STI from Last 3 Months or Most Recently Relevant to Health Maintenance Results * XR Chest 2 Views (02/08/2025 11:56 AM EDT) Anatomical Region Laterality Modality Chest Radiographic Sara ging 02/08/2025 11:5 6 AM EDT Narrative 02/08/2025 12:07 PM EDT [address] [address] XRay Report Signed Patient: Asif Vargas MR#: [id number] : 1985 Acct:[id number] Age/Sex: 39 / M ADM Date: 02/08/25 Loc: [facility] Attending Dr: Praneeth Lanier MD Ordering Physician: Praneeth Lanier MD Date of Service: 02/08/25 Procedure(s): XR chest 2V Accession Number(s): [id number] cc: Praneeth Lanier MD Reason for Exam: [...] 02/08/25 1204 DD/ 1156 TD/TT: 02/08/25 1157 Weigh Boss: Procedure Note Donotuseinterpreter, Image - 02/08/2025 [place] [address] XRay Report Signed Patient: Asif Vargas RMR#: [id number] : 1985Acct:[id number] Age/Sex: 39 / MADM Date: 02/08/25 Loc: [facility] Attending Dr: Praneeth Lanier MD Ordering Physician: Praneeth Lanier MD Date of Service: 02/08/25 Procedure(s): XR chest 2V Accession Number(s): [id number] cc: Praneeth Lanier MD Reason for Exam: [...] 02/08/25 1204 DD/ 1156 TD/TT: 02/08/25 1157 Weigh Boss: us Praneeth Lanier MD IMG XR PROCEDURES Final Result * Hepatitis C Antibody with Reflex to HCV, RNA, Quantitative, Real-Time PCR (04/11/2024 11:46 AM EST) Hepatitis C Antibody Nonreactive Nonreactive [facility] Comment:Antibodies to HCV no t detected; does not exclude early acuteHCV infection. Blood Venous blood specimen / Unknown 04/11/2024 11:46 AM EST 04/11/2024 11:46 AM EST us Praneeth Lanier MD LAB BLOOD ORDERABLES Final Resul t [facility] [address] [place] [phone] * HIV-1/2 Antigen and Antibodies, Fourth Generation, with Reflexes (04/11/2024 11:46 AM EST) HIV AB/AG Nonreactive Nonreactive [facility] Comment:HIV-1 p24 Ag and/or HIV-1/HIV-2 Ab not detected.A test result that is nonreactive does not exclude thepossibility of exposure to or infection with HIV-1 and/orHIV-2. Nonreactive results in this assay for individualswith prior exposure to HIV-1 and/or HIV-2 may be due toantigen and antibody levels that are below the limit ofdetection of this assay.The [employer] HIV Ag/Ab Combo assay result andsupplemental assay results should be interpreted inconjunction with the patient's clinical presentation,history and other laboratory results. If the results areinconsistent with clinical evidence, additional testing issuggested to confirm the result. Blood Venous blood specimen / Unknown 04/11/2024 11:46 AM EST 04/11/2024 11:46 AM EST us Praneeth Lanier MD LAB BLOOD ORDERABLES Final Resul t Performing Organization Address [facility] de Phone Number [facility] [address] [place] [phone] * (ABNORMAL) Lipid Panel, Standard (04/11/2024 11:46 AM EST) Triglycerides 99 <150 mg/dL [facility] Comment:Desirable Triglyceri de: less than 150 mg/dLBorderline High Triglyceride 150-199 mg/dLHigh Triglyceride: 200-499 mg/dLVery High Triglyceride: greater than or equal to 5OO mg/dL Cholesterol 162 <200 mg/dL [facility] Comment:Desirable Cholestero l: less than 200 mg/dLBorderline High Cholesterol: 200-239 mg/dLHigh Cholesterol: greater than 239 mg/dL LDL Cholesterol Calculated 104(H) <100 mg/dL [facility] Comment:Desirable LDL: less than 100 mg/dLNear Optimal/Above Optimal LDL: 110- 129 mg/dLBorderline High LDL: 130-159 mg/dLHigh LDL: 160-189 mg/dLVery High LDL: greater than or equal to 190 mg/dL HDL Cholesterol 39(L) >40 mg/dL [facility] Comment:Desirable HDL: great er than 40 mg/dL Note: This HDL assay may give artificially low results in patients with liver disease. Blood Venous blood specimen / Unknown 04/11/2024 11:46 AM EST 04/11/2024 11:46 AM EST us Praneeth Lanier MD LAB BLOOD ORDERABLES Final Resul t Performing Organization Address [facility] Co de Phone Number [facility] [address] [place] [phone] from Last 3 Months or Most Recently Relevant to Health Maintenance Insurance [facility] C3 Care Teams [facility] Director Relationship Specialty Start Date End Date Name, MD Praneeth [address] [place] [phone] PCP - General Family Medicine 05/04/16
[2025-02-11 22:29] LABS: TS Negative Control Passed; TS Panel A 1; TS Panel B 1; TS Positive Control Passed; TSpotTB Negative (Negative)
== END 2025-02-08 11:45 | disposition home or self-care (01) ==
LOC: HO.HHCX 11:44
PROVIDERS: Visit Provider Internal Medicine Geriatric Medicine
DX: Z11.1 Encounter for screening for respiratory tuberculosis (principal); R05.3 Chronic cough; F17.200 Nicotine dependence, unspecified, uncomplicated
CPT/HCPCS: 36415; 71046; 86481

== ENCOUNTER → 2025-02-08 11:45 | Outpatient (BNV) | payer MEDICAID, SELFPAY | PROVIDERS: Visit Provider Radiology Diagnostic Radiology | DX: R05.3 Chronic cough (principal) | CPT/HCPCS: 71046 ==

== ENCOUNTER 2025-02-08 11:57 | Outpatient (REF) | payer MEDICAID, SELFPAY | END 2025-02-08 11:58 | disposition home or self-care (01) | LOC: HO.HHCL 11:57 | PROVIDERS: PCP Internal Medicine Geriatric Medicine; Visit Provider Internal Medicine Geriatric Medicine | DX: Z13.89 Encounter for screening for other disorder (principal) ==

== ENCOUNTER 2025-02-12 09:10 | Outpatient (REF) | payer MEDICAID, SELFPAY ==
--- OUTSIDE RECORDS SUMMARY | 2025-02-08 10:40 | XMS_ITS | Encounter Summary ---
Author Organization [employer] Address [address] [facility] 7t [place] [address] Care Team Providers Care Progressive Care Manager Name Role Phone Name, Praneeth LECHUGA Primary Care Provider [phone] Reason for Visit * Reason Comments Cough Encounter Details Date Type Department Care Team ([facility] Contact Info) Description 02/08/2025 10:40 AM EDT Office Visit [facility]ALK[facility] [address] [place] [phone] Name, MD Praneeth [address] [place] [phone] Chronic cough (Primary Dx); Tobacco dependency; Schizoaffective [...] - T-SPOT??.TB; Future Schizoaffective disorder, unspecified type ([facility]) Future Appointments Date Time Provider Department Center 02/28/2025 11:30 AM Praneeth Lanier MD [facility] 04/30/2025 9:30 AM Praneeth Lanier MD MEDICINE [facility] documented in this encounter Plan of Treatment Upcoming Encounters Date Type Department Care Team (Late st Contact Info) Description 02/28/2025 11:30 AM EDT Office Visit [facility] [place] [address] Name, MD Praneeth [facility] [place] [address] 04/30/2025 9:30 AM EST Office Visit [facility] [place] [phone] Name, MD [facility] [place], [place] [phone] documented as of this encounter Procedures Procedure Name Priority Date/Time Associated Diagnosis Comments T-SPOT(R).TB Routine 02/08/2025 12:09 PM EDT Chronic cough Tobacco dependency XR CHEST 2 VIEWS Routine 02/08/2025 11:5 6 AM EDT Chronic cough Tobacco dependency documented in this encounter Results * T-SPOT??.TB (02/08/2025 12:09 PM EDT) [facility] T Spot TB Negative Negative [facility] Comment:A negative test resu lt does not exclude the possibilityof exposure to or infection with Mycobacteriumtuberculosis (M. tuberculosis). Patients with recentexposure to TB infected individuals exhibiting anegative T-SPOT.TB result should be considered forretesting within 6 weeks or if other relevant clinicalsymptoms indicate. Results from T-SPOT.TB testing mustbe used in conjunction with each individual'sepidemiological history, current medical status,and results of other diagnostic evaluations.The T-SPOT.TB test is qualitative and results arereported as positive, borderline, or negative, giventhat the test controls perform as expected. In linewith the Centers for Disease Control and Prevention's2010 recommendation to report quantitative measurementsalongside the qualitative result, the laboratoryprovides spot counts for informational purposes only.The T-SPOT.TB test should not be interpreted as aquantitative test. TS PANEL A 1 [facility] TS PANEL B 1 [facility] Negative Control Passed [facility] Positive Control Passed [facility] Comment:For additional infor srikanth, please refer tohttp://education.[employer]/faq/YHN933(This link is being provided for informational/educational purposes only.)THIS TEST WAS PERFORMED AT:[employer]/[facility] [id number] [place] [address]CITXVJLPEARL BECKER MD,PHD 02/08/2025 12:0 9 PM EDT 02/08/2025 1:38 PM EDT Praneeth Lanier MD LAB BLOOD ORDERABLES Final Resul t [facility] [address] [place] [phone] * XR Chest 2 Views (02/08/2025 11:56 AM EDT) Anatomical Region Laterality Modality Chest Radiographic Sara ging 02/08/2025 11:5 6 AM EDT Narrative 02/08/2025 12:07 PM EDT [address] [address] XRay Report Signed Patient: Asif Vargas MR#: [id number] 397 : 1985 Acct:[id number] Age/Sex: 39 / M ADM Date: 02/08/25 Loc: [facility] Attending Dr: Praneeth Lanier MD Ordering Physician: Praneeth Lanier MD Date of Service: 02/08/25 Procedure(s): XR chest 2V Accession Number(s): [id number] cc: Praneeth Lanier MD Reason for Exam: [...] 02/08/25 1204 DD/ 1156 TD/TT: 02/08/25 1157 Cheese Wrapper: Procedure Note Donotuseinterpreter, Image - 02/08/2025 [place] [address] XRay Report Signed Patient: Asif Vargas RMR#: [id number] : 1985Acct:[id number] Age/Sex: 39 / MADM Date: 02/08/25 Loc: [facility] Attending Dr: Praneeth Lanier MD Ordering Physician: Praneeth Lanier MD Date of Service: 02/08/25 Procedure(s): XR chest 2V Accession Number(s): [id number] cc: Praneeth Lanier MD Reason for Exam: [...] 02/08/25 1204 DD/ 1156 TD/TT: 02/08/25 1157 Cheese Wrapper: Praneeth Lanier MD IMG XR PROCEDURES Final Result documented in this encounter Visit Diagnoses Diagnosis Chronic cough- Primary Cough Tobacco dependency Tobacco use disorder Schizoaffective disorder, unspecified type (CMS/HCC) documented in this encounter Additional Health Concerns Assessment Noted Time PHQ-9 Depression Total Score: 1 12/08/19 24 3:37 PM EDT documented as of this encounter Care Teams Progressive Care Manager Relationship Specialty Start Date End Date Name, MD Praneeth [address] [place] [address] PCP - General Family Medicine 05/04/16 documented as of this encounter
[2025-02-12 09:21] LABS: MANUAL DIFF FLAG NO
[2025-02-12 10:39] LABS: Hematocrit 41.9 % (42.0-52.0); Hemoglobin 13.8 g/dl (14.0-18.0); Imm Gran Abs Auto 0.12 X10*3/uL (0.00-0.03); Imm Gran Pct Auto 1.6 % (0.0-0.4); Lymphocytes Absolute Auto 1.5 X10*3/uL (1.2-4.9); Mean Corpuscular HGB Conc 32.9 g/dl (31.0-36.0); Mean Corpuscular Hemoglobin 25.8 pg (27.0-33.0); Mean Corpuscular Volume 78.5 fL (80.0-98.0); NRBC Abs Auto 0.000 X10*3/uL (0.0-0.012); NRBC Pct Auto 0.0 /100WBC (0.0-0.2); Platelet Count 179 X10*3/uL (160-400); Red Blood Count 5.34 X10*6/uL (4.60-5.80); White Blood Count 7.5 X10*3/uL (4.8-10.8)
--- OUTSIDE RECORDS SUMMARY | 2025-02-12 11:29 | XMS_ITS | Encounter Summary ---
Author Organization [employer] Address [address] [facility] [address], [place] [address] Care Team Providers Care Diagnostic Technician Name Role Phone Name, Praneeth LECHUGA Primary Care Provider [phone] Reason for Visit * Reason Onset Date Comments Call Back Request 10/26/2023 Encounter Details Date Type Department Care Team ([facility] st Contact Info) Description 10/26/2023 Telephone [facility] [address] [place], [place] [phone] Name, MD Praneeth [address] [place] [address] Call Back Request Social History Tobacco Use Types Packs/Day Years Used Date Smoking Tobacco: Every Day Cigarettes Smokeless Tobacco: Never Housing Stability Answer Date Recorded What is your housing situation today? I do not have housing (Staying with others, in a hotel, in a fpc, living outside on the street, on a [...] states pt. Was prescribe Nicotine patches from [facility], but now he discharge from that facility and looking for nicotine patches rx by PCP. Pt. Is asking for rx. 7 mg Nicotine patches. Please review and advise. * Telephone Encounter - Estephanie Manrique - 10/26/2023 2:46 PM EDT Tc from [facility] requesting a call back, stated pt needs medications in specific nicotine patches. Please contact Lauren at [phone] documented in this encounter Plan of Treatment Upcoming Encounters Date Type Department Care Team (Late st Contact Info) Description 02/28/2025 11:30 AM EDT Office Visit [facility] [address] [place] [address] Name, MD Praneeth [address] [place] [address] 04/30/2025 9:30 AM EST Office Visit [facility] [address] [place] [address] Name, [place] [address] documented as of this encounter Visit Diagnoses Not on filedocumented in this encounter Care Teams Diagnostic Technician Relationship Specialty Start Date End Date Name, [place] [address] PCP - General Family Medicine 05/04/16 documented as of this encounter
--- OUTSIDE RECORDS SUMMARY | 2025-02-12 11:29 | XMS_ITS | Encounter Summary ---
Author Organization [employer] Address 75 [facility] 7 [place] [address] Care Team Providers Care Sawmill Moulder Operator Name Role Phone Name, Praneeth LECHUGA Primary Care Provider [phone] Reason for Visit * Reason Onset Date Comments Results 02/12/2025 Encounter Details Date Type Department Care Team ([facility] st Contact Info) Description 02/12/2025 Results Follow-Up [facility] [address] [place] [address] Name, MD Praneeth [address] [place] [address] T-SPOT .TB Social History Tobacco Use Types Packs/Day Years [...] encounter Miscellaneous Notes * Telephone Encounter - Sol Ng RN - 02/12/2025 9:08 AM EDT TC placed to pt to inform him of normal labs and chest x-ray pt advised if he needs any documentation he can go to medical records to turkey picker results documented in this encounter Plan of Treatment Upcoming Encounters Date Type Department Care Team (Late st Contact Info) Description 02/28/2025 11:30 AM EDT Office Visit [facility] [address] [place] [phone] Name, MD Praneeth [address] [place] [phone] 04/30/2025 9:30 AM EST Office Visit [address] [address] Name, MD Praneeth [address] [place] [phone] documented as of this encounter Visit Diagnoses Not on filedocumented in this encounter Additional Health Concerns Assessment Noted Time PHQ-9 Depression Total Score: 1 12/08/19 24 3:37 PM EDT documented as of this encounter Care Teams Sawmill Moulder Operator Relationship Specialty Start Date End Date Name, MD Praneeth [address] [place] [address] PCP - General Family Medicine 05/04/16 documented as of this encounter
--- OUTSIDE RECORDS SUMMARY | 2025-02-12 11:29 | XMS_ITS | Clinical Summary ---
Author Organization [employer] Address 75 [facility] 7t [place] [address] Care Team Providers Care Set Up Machinist Name Role Phone Name, Praneeth LECHUGA Primary Care Provider [phone] Allergies Active Allergy Reactions Criticality Noted Date [...] Encounters Date Type Department Care Team Description 02/12/2025 Results Follow-Up [facility] [address] [place] [phone] Praneeth Lanier MD T-SPOT .TB 02/08/2025 10:40 AM EDT Office Visit [facility] [address] [place] [address] NamePraneeth MD Chronic cough (Primary Dx); Tobacco dependency; Schizoaffective disorder, unspecified type ([facility]) 02/08/2025 Travel 11/26/2024 Telephone [facility] [address] [place] [address] NamePraneeth MD Nurse Triage from Last 3 Months Immunizations Immunization Administration [...] Description 02/28/2025 11:30 AM EDT Office Visit [facility] [address] [place], [place] [phone] Name, MD Praneeth Kate[address] [place], [place] [phone] 04/30/2025 9:30 AM EST Office Visit [facility] [address] [place], [place] [phone] Name, MD Praneeth [address] [place], [place] [phone] Health Maintenance Due Date Last Done Comments [...] Recently Relevant to Health Maintenance Results * T-SPOT??.TB (02/08/2025 12:09 PM EDT) [facility] T Spot TB Negative Negative [facility] Comment:A negative test resu lt does [...] as aquantitative test. TS PANEL A 1 [facility] TS PANEL B 1 [facility] Negative Control Passed [facility] Positive Control Passed [facility] Comment:For additional infor srikanth, please refer tohttp://education.WeDeliver/faq/MIC403(This link is being provided for informational/educational purposes only.)THIS TEST WAS PERFORMED AT:[employer] [id number] [place] [address]AXIHMWPPEARL BECKER MD,PHD 02/08/2025 12:0 9 PM EDT 02/08/2025 1:38 PM EDT us Praneeth Lanier MD LAB BLOOD ORDERABLES Final Resul t [facility] [address] [place] [phone] * XR Chest 2 Views (02/08/2025 11:56 AM EDT) Anatomical Region Laterality Modality Chest Radiographic Sara ging 02/08/2025 11:5 6 AM EDT Narrative 02/08/2025 12:07 PM EDT [address] [address] XRay Report Signed Patient: Asif Vargas MR#: [id number] 397 : 1985 Acct:[id number] Age/Sex: 39 / M ADM Date: 02/08/25 [facility]: [facility] Attending Dr: Praneeth Lanier MD Ordering Physician: Praneeth Lanier MD Date of Service: 02/08/25 Procedure(s): XR chest 2V Accession Number(s): [id number] cc: Praneeth Lanier MD Reason for Exam: [...] 02/08/25 1204 DD/ 1156 TD/TT: 02/08/25 1157 Cancer Program Coordinator: Procedure Note Donotuseinterpreter, Image - 02/08/[address] [address] XRay Report Signed Patient: Asif Vargas RMR#: [id number] : 1985Acct:[id number] Age/Sex: 39 / MADM Date: 02/08/25 Loc: [facility] Attending Dr: Praneeth Lanier MD Ordering Physician: Praneeth Lanier MD Date of Service: 02/08/25 Procedure(s): XR chest 2V Accession Number(s): [id number] cc: Praneeth Lanier MD Reason for Exam: [...] 02/08/25 1204 DD/ 1156 TD/TT: 02/08/25 1157 Cancer Program Coordinator: us Praneeth Lanier MD IMG XR PROCEDURES Final Result * Hepatitis C Antibody with Reflex to HCV, RNA, Quantitative, Real-Time PCR (04/11/2024 11:46 AM EST) [facility] Hepatitis C Antibody Nonreactive Nonreactive [facility] Comment:Antibodies to HCV no t detected; does not exclude early acuteHCV infection. Blood Venous blood specimen / Unknown 04/11/2024 11:46 AM EST 04/11/2024 11:46 AM EST us Praneeth Lanier MD LAB BLOOD ORDERABLES Final Resul t [facility] [address] [place] [phone] * HIV-1/2 Antigen and Antibodies, Fourth Generation, with Reflexes (04/11/2024 11:46 AM EST) Pathologist [facility] HIV AB/AG Nonreactive Nonreactive [facility] Comment:HIV-1 p24 Ag and/or HIV-1/HIV-2 Ab not detected.A test result that is nonreactive does not exclude thepossibility of exposure to or infection with HIV-1 and/orHIV-2. Nonreactive results in this assay for individualswith prior exposure to HIV-1 and/or HIV-2 may be due toantigen and antibody levels that are below the limit ofdetection of this assay.The [employer] HIV Ag/Ab Combo assay result andsupplemental assay results should be interpreted inconjunction with the patient's clinical presentation,history and other laboratory results. If the results areinconsistent with clinical evidence, additional testing issuggested to confirm the result. Blood Venous blood specimen / Unknown 04/11/2024 11:46 AM EST 04/11/2024 11:46 AM EST us Praneeth Lanier MD LAB BLOOD ORDERABLES Final Resul t Performing Organization Address [facility] Co de Phone Number [facility] [address] [place] [phone] * (ABNORMAL) Lipid Panel, Standard (04/11/2024 11:46 AM EST) Triglycerides 99 <150 mg/dL [facility] Comment:Desirable Triglyceri de: less than 150 mg/dLBorderline High Triglyceride 150-199 mg/dLHigh Triglyceride: 200-499 mg/dLVery High Triglyceride: greater than or equal to 5OO mg/dL Cholesterol 162 <200 mg/dL [facility] Comment:Desirable Cholestero l: less than 200 mg/dLBorderline High Cholesterol: 200-239 mg/dLHigh Cholesterol: greater than 239 mg/dL LDL Cholesterol Calculated 104(H) <100 mg/dL [facility] Comment:Desirable LDL: less than 100 mg/dLNear Optimal/Above Optimal LDL: 110- 129 mg/dLBorderline High LDL: 130-159 mg/dLHigh LDL: 160-189 mg/dLVery High LDL: greater than or equal to 190 mg/dL HDL Cholesterol 39(L) >40 mg/dL [facility] Comment:Desirable HDL: great er than 40 mg/dL Note: This HDL assay may give artificially low results in patients with liver disease. Blood Venous blood specimen / Unknown 04/11/2024 11:46 AM EST 04/11/2024 11:46 AM EST us Praneeth Lanier MD LAB BLOOD ORDERABLES Final Resul t Performing Organization Address [facility] Co de Phone Number [facility] [address] [place] [phone] from Last 3 Months or Most Recently Relevant to Health Maintenance [place] [address] [place] [address] C3 Care Teams Set Up Machinist Relationship Specialty Start Date End Date Name, MD Praneeth [address] [place] [phone] PCP - General Family Medicine 05/04/16
--- OUTSIDE RECORDS SUMMARY | 2025-02-12 11:29 | XMS_ITS | Encounter Summary ---
Author Organization [employer] Address 75 [facility] 7 [place] [address] Care Team Providers Care Patient Office Rep Name Role Phone Name, Praneeth LECHUGA Primary Care Provider [phone] Reason for Visit * Reason Comments Med Refill Encounter Details Date Type Department Care Team ([facility] st Contact Info) Description 12/02/2023 Refill [facility] [address] [place], [place] [phone] Name, MD Praneeth [address] [place] [address] Nicotine dependence, uncomplicated, unspecified nicotine product type [...] Description 02/28/2025 11:30 AM EDT Office Visit [facility] [address] [place] [phone] NamePraneeth MD [address] [place] [phone] 04/30/2025 9:30 AM EST Office Visit [address] [address] NamePraneeth MD [address] [place] [phone] documented as of this encounter Visit Diagnoses Diagnosis Nicotine dependence, uncomplicated, unspecified nicotine product type documented in this encounter Care Teams Patient Office Rep Relationship Specialty Start Date End Date Praneeth Lanier MD [address] [place] [phone] PCP - General Family Medicine 05/04/16 documented as of this encounter
--- OUTSIDE RECORDS SUMMARY | 2025-02-12 11:29 | XMS_ITS | Encounter Summary ---
Author Organization [employer] Address 75 [facility] 7t [place] [address] Care Team Providers Care Talent Coordinator Name Role Phone Name, Praneeth LECHUGA Primary Care Provider [phone] Encounter Details Date Type Department Care Team [...] Description 02/28/2025 11:30 AM EDT Office Visit [address] [address] NamePraneeth MD [address] [place] [phone] 04/30/2025 9:30 AM EST Office Visit [address] [address] NamePraneeth MD [address] [place] [phone] documented as of this encounter Visit Diagnoses Not on filedocumented in this encounter Additional Health Concerns Assessment Noted Time PHQ-9 Depression Total Score: 1 12/08/19 24 3:37 PM EDT documented as of this encounter Care Teams Talent Coordinator Relationship Specialty Start Date End Date Praneeth Lanier MD [address] [place] [phone] PCP - General Family Medicine 05/04/16 documented as of this encounter
== END 2025-02-12 09:11 | disposition home or self-care (01) ==
LOC: HO.LAB 09:10
PROVIDERS: PCP Internal Medicine Geriatric Medicine; Visit Provider Nurse Practitioner Psychiatric/Mental Health
DX: Z79.899 Other long term (current) drug therapy (principal)
CPT/HCPCS: 36415; 85025

== ENCOUNTER 2025-03-01 09:03 | Outpatient (REF) | payer MEDICAID, SELFPAY ==
--- OUTSIDE RECORDS SUMMARY | 2025-02-28 11:30 | XMS_ITS | Encounter Summary ---
Author Organization [employer] Address [address] [facility] [address] [place] [address] Care Team Providers Care Alarm Mechanism Adjuster Name Role Phone Name, Praneeth LECHUGA Primary Care Provider [phone] Reason for Visit * Reason Comments Follow-up Encounter Details Date Type Department Care Team ([facility] Contact Info) Description 02/28/2025 11:30 AM EDT Office Visit [facility] [address] [place] [address] Name, MD Praneeth [address] [place] [address] Recurrent cough (Primary Dx); Tobacco dependency; Schizoaffective disorder, unspecified type (HCC); Encounter for immunization Social History Tobacco Use Types Packs/Day Years Used Date Smoking Tobacco: Every Day Cigarettes Smokeless Tobacco: Never Tobacco Cessation:Ready to Q uit: Not Asked; Counseling Given: Not Answered Alcohol Use Standard Drinks/Week Comments Never 0 (1 standard drink = 0.6 oz pur e alcohol) Depression Answer Date Recorded Patient Health Questionnaire-9 Score 2 02/28/2025 Patient Health Questionnaire-9 Score 2 02/28/2025 Last PHQ-9: Questionnaire Data Not on file 1 Housing Stability Answer Date Recorded What is your housing situation today? I have pema thorpe 02/28/[address] you li ve. Do you have problems with any of the following? None of the above 02/28/2025 Food Insecurity Answer Date Recorded Within the past 12 months, y ou worried that your food would run out before you got money to buy more: Sometimes True 2024 Within the past 12 months,th e food you bought just didn't last and you didn't have enough money to get more: Sometimes True 02/28/2025 Transportation Answer Date Recorded In the past 12 months, has l ack of transportation kept you from medical appts, meetings, work or from getting things needed for daily living? Yes, it has kept me from non-medical meetings, work, or getting things that I need 02/28/2025 Utilities Answer Date Recorded In the past 12 months, has t he electric, gas, oil or water company threatened to shut off services in your home? No 02/28/2025 Depression Answer Date Recorded Patient Health Questionnaire-2 Score 0 02/28/2025 Internet Access Answer Date Recorded Internet Access Q1 Yes 02/28/2025 Internet Access Q2 Not on file 02/28/2025 Sex and Gender Information Value Date Recorded Sex Assigned at Male 03/29/2022 10:26 AM EDT Legal Sex Male 10:26 AM EDT Gender Identity Male 03/29/2022 10:26 AM EDT Sexual Orientation Straight 03/29/2022 10 :26 AM EDT documented as of this encounter Last Filed Vital Signs Vital Sign Reading Time Taken Comments Blood Pressure 106/82 02/28/2025 11:42 AM EDT Pulse 111 02/28/2025 11:42 AM EDT Temperature 36.9 C (98.5 F) 02/28/2025 11:42 AM EDT Respiratory Rate 18 02/28/2025 11:42 AM EDT Oxygen Saturation 96% 02/28/2025 11:42 AM EDT Inhaled Oxygen Concentration - - Weight 110 kg (243 lb 9.6 oz) 02/28/2025 11:42 A M EDT Height 175.3 cm (5' 9 ) 02/28/2025 11:42 AM EDT Body Mass Index 35.97 02/28/2025 11:42 AM EDT documented in this encounter Functional Status * Over the past 2 weeks, how often have you been bothered by any of the following problems? Question Answer Date of Assessment Author Patient Health Questionnaire-2 Score 0 02/28/2025 11:43 AM EDT Vasquez Knight MA * Little interest or pleasure in doing things Answer Date of Assessment Author Not at all 02/28/2025 11:43 AM Jr Hernandez MA * Feeling down, depressed, or hopeless Answer Date of Assessment Author Not at all 02/28/2025 11:43 AM Jr Hernandez MA * Trouble falling or staying asleep, or sleeping too much Answer Date of Assessment Author Several days 02/28/2025 11:43 AM Jr Hernandez MA * Feeling tired or having little energy Answer Date of Assessment Author Not at all 02/28/2025 11:43 AM Jr Hernandez MA * Poor appetite or overeating Answer Date of Assessment Author Not at all 02/28/2025 11:43 AM rJ Hernandez MA * Feeling bad about yourself - or that you are a failure or have let yourself or your family down Answer Date of Assessment Author Not at all 02/28/2025 11:43 AM Jr Hernandez MA * Trouble concentrating on things, such as reading the newspaper or watching television Answer Date of Assessment Author Not at all 02/28/2025 11:43 AM Jr Hernandez MA * Moving or speaking so slowly that other people could have noticed? Or the opposite - being so fidgety or restless that you have been moving around a lot more than usual. Answer Date of Assessment Author Several days 02/28/2025 11:43 AM Jr Hernandez MA * Thoughts that you would be better off or hurting yourself in some way Answer Date of Assessment Author Not at all 02/28/2025 11:43 AM Jr Hernandez MA * Patient Health Questionnaire-9 Score Answer Date of Assessment Author 2 02/28/2025 11:43 AM Jr Hernandez MA * How difficult have these problems made it for you to do your work, take care of things at home, or get along with other people? Answer Date of Assessment Author Somewhat difficult 02/28/2025 11:43 AM Jr Palafox MA * Over the last 2 weeks, how often have you been bothered by any of the following problems? Question Answer Date of Assessment Author Feeling nervous, anxious, or on edge 1 02/28/2025 11:43 AM EDT Debby Knight MA Not being able to stop or control worrying 0 02/28/2025 11:43 AM EDT Debby Knight MA Worrying too much about different things 1 02/28/2025 11:43 AM EDT Debby Knight MA Trouble relaxing 0 02/28/2025 11:43 AM EDT Jr Knight MA Being so restless that it is hard to sit still 0 02/28/2025 11:43 AM LISAT Debby Knight MA Becoming easily annoyed or irritable 0 02/28/2025 11:43 AM EDT Debby Knight MA Feeling afraid as if something awful might happen 1 02/28/2025 11:43 AM EDT Jr Sebastian MA MP-7 Total Score 3 02/28/2025 11:43 AM LISAT Jr Knight MA documented as of this encounter Progress Notes * Praneeth Lanier MD - 02/28/2025 11:30 AM EDT Subjective Patient ID: Asif Vargas is a 39 y.o. male who presents for Follow-up. Patient is returning to primary care. He has personal history of bipolar disorder and schizophrenia. He is now court ordered to use the psychiatric medications. The patient is getting counseling and psychiatric medication prescribed through [facility] and he was previously with [facility]. He lives in a usp. I saw him previously for complaints of recurrent nonproductive cough and he is a former smoker that currently vapes nicotine. I did a T spot that was negative and his chest x-ray was unremarkable.I prescribed albuterol to use as needed that he has not required. Today his pleasant, alert, he assured me that he is using his psychiatric medications that include Abilify and clozapine. Review of Systems Constitutional: Negative for chills, fatigue and fever. HENT: Negative for sore throat. Respiratory: Negative for cough, chest tightness and shortness of breath. Cardiovascular: Negative for chest pain, palpitations and leg swelling. Gastrointestinal: Negative for abdominal pain and blood in stool. Psychiatric/Behavioral: Negative for hallucinations, self-injury and suicidal ideas. Objective Vitals: 02/28/25 1142 BP: 106/82 BP Location: Left arm Patient Position: Sitting BP Cuff Size: Large adult Pulse: (!) 111 Resp: 18 Temp: 98.5 ??F (36.9 ??C) TempSrc: Temporal SpO2: 96% Weight: 243 lb 9.6 oz (110 kg) Height: 5' 9 (1.753 m) Physical [...] Diagnoses and all orders for this visit: Recurrent cough Comments: Resolved. I recommend to use albuterol as needed for cough/wheezing/[place]. I prescribed the patient nicotine lozenges. Tobacco dependency - nicotine polacrilex (Nicotine Mini) 2 MG lozenge; Dissolve 1 lozenge (2 mg) in the mouth if needed for smoking cessation. Weeks 1-6: 1 lozenge every 1-2 hrs (max 5 lozenges every 6 hrs; 20 lozenges/day); Weeks 7-9: 1 lozenge every 2-4 hrs Weeks 10-12: 1 lozenge every 4-8 hrs Schizoaffective disorder, unspecified type (HCC) Comments: EKG today is unremarkable. He is encouraged to continue using medications as prescribed by behavioral health team. Check blood work listed below. Orders: - CBC auto differential; Future - Comprehensive Metabolic Panel; Future - Lipid Panel, Standard; Future - Hemoglobin A1c; Future - ECG 12 lead Encounter for immunization - FLU VACCINE TRIVALENT [id number] (Fluarix) 19 yrs + Future Appointments Date Time Provider Department Center 04/30/2025 9:30 AM Praneeth Lanier MD [facility] documented in this encounter Plan of Treatment Upcoming Encounters Date Type Department Care Team (Late st Contact Info) Description 04/30/2025 9:30 AM EST Office Visit [facility] [address] [place] [address] Name, MD Praneeth [address] [place] [address] Scheduled Orders Name Type Priority Associated Diagnoses Orde r Schedule CBC auto differential Lab Routine Schizoaffective disorder, unspecified type (CMS/HCC) Expected: 02/28/2025 (Approximate), Expires: 02/28/2026 Comprehensive Metabolic Panel Lab Routine Schizoaffective disorder, unspecified type (CMS/HCC) Expected: 02/28/2025 (Approximate), Expires: 02/28/2026 Lipid Panel, Standard Lab Routine Schizoaffective disorder, unspecified type (CMS/HCC) Expected: 02/28/2025 (Approximate), Expires: 02/28/2026 Hemoglobin A1c Lab Routine Schizoaffective disorder, unspecified type (CMS/HCC) Expected: 02/28/2025 (Approximate), Expires: 02/28/2026 documented as of this encounter Procedures Procedure Name Priority Date/Time Associated Diagnosis Comments ECG 12-LEAD Routine 02/28/2025 12:52 PM EDT Schizoaffective disorder, unspecified type (HCC) documented in this encounter Results * ECG 12 lead (02/28/2025 12:52 PM EDT) Narrative Name, MD Praneeth - 02/28/2025 12:52 PM EDT NSR, HR 92, no ST-T changes, QTC of 425 us Praneeth Lanier MD ECG ORDERABLES Final Result documented in this encounter Visit Diagnoses Diagnosis Recurrent cough- Primary Tobacco dependency Tobacco use disorder Schizoaffective disorder, unspecified type (HCC) Encounter for immunization documented in this encounter Additional Health Concerns Assessment Noted Time PHQ-9 Depression Total Score: 2 02/29/20 25 11:43 AM EDT documented as of this encounter Care Teams Alarm Mechanism Adjuster Relationship Specialty Start Date End Date NamePraneeth MD [address] [place] [address] PCP - General Family Medicine 05/04/16 documented as of this encounter
[2025-03-01 09:14] LABS: MANUAL DIFF FLAG NO
--- OUTSIDE RECORDS SUMMARY | 2025-03-01 09:28 | XMS_ITS | Encounter Summary ---
Author Organization [employer] Address [address] [facility] 7 [place] [address] Care Team Providers Care Hide Mill Man Name Role Phone Name, Praneeth LECHUGA Primary Care Provider [phone] Reason for Visit * Reason Comments Med Refill Encounter Details Date Type Department Care Team ([facility] st Contact Info) Description 12/02/2023 Refill [facility] [address] [place], [place] [phone] Name, MD Praneeth [address] [place] [address] Nicotine dependence, uncomplicated, unspecified nicotine product type Social History Tobacco Use Types Packs/Day Years Used Date Smoking Tobacco: Every Day Cigarettes Smokeless Tobacco: Never Housing Stability Answer Date Recorded What is your housing situation today? I do not have housing (Staying with others, in a hotel, in a group home, living outside on the street, on a [...] Description 04/30/2025 9:30 AM EST Office Visit [facility] [address] [place] [phone] NamePraneeth MD [address] [place] [address] documented as of this encounter Visit Diagnoses Diagnosis Nicotine dependence, uncomplicated, unspecified nicotine product type documented in this encounter Care Teams Hide Mill Man Relationship Specialty Start Date End Date Praneeth Lanier MD [address] [place] [phone] PCP - General Family Medicine 05/04/16 documented as of this encounter
--- OUTSIDE RECORDS SUMMARY | 2025-03-01 09:28 | XMS_ITS | Encounter Summary ---
Author Organization [employer] Address [address] [facility] 7t [place] [address] Care Team Providers Care Student Records Specialist Name Role Phone Name, Praneeth LECHUGA Primary Care Provider Encounter Details Date Type Department Care Team (Latest Contact Info) Description 02/28/2025 Travel Social History Tobacco Use Types Packs/Day [...] AM EDT documented as of this encounter Functional Status * Over the past 2 weeks, how often have you been bothered by any of the following problems? Question Answer Date of Assessment Author Patient Health Questionnaire-2 Score 0 02/28/2025 11:43 AM Vasquez Hernandez MA * Little interest or pleasure in [...] 11:43 AM Jr Hernandez MA * Feeling bad about yourself [...] or on edge 1 02/28/2025 11:43 AM Debby Hernandez MA Not being able to stop or control worrying 0 02/28/2025 11:43 AM Debby Hernandez MA Worrying too much about different things 1 02/28/2025 11:43 AM Debby Hernandez MA Trouble relaxing 0 02/28/2025 11:43 AM Jr Hernandez MA Being so restless that it is hard to sit still 0 02/28/2025 11:43 AM Debby Hernandez MA Becoming easily annoyed or irritable 0 02/28/2025 11:43 AM Debby Hernandez MA Feeling afraid as if something awful might happen 1 02/28/2025 11:43 AM Jr Infante MA MP-7 Total Score 3 02/28/2025 11:43 AM Jr Hernandez MA documented as of this encounter Plan of Treatment Upcoming Encounters Date Type Department Care Team (Late st Contact Info) Description 04/30/2025 9:30 AM EST Office Visit [facility] [address] [place] [address] Name, MD Praneeth [address] [place] [address] documented as of this encounter Visit Diagnoses Not on filedocumented in this encounter Additional Health Concerns Assessment Noted Time PHQ-9 Depression Total Score: 2 02/29/20 25 11:43 AM EDT documented as of this encounter Care Teams Student Records Specialist Relationship Specialty Start Date End Date Name, [place] [address] PCP - General Family Medicine 05/04/16 documented as of this encounter
--- OUTSIDE RECORDS SUMMARY | 2025-03-01 09:28 | XMS_ITS | Clinical Summary ---
Author Organization [employer] Address [address] [facility] 7t [place] [address] Care Team Providers Care Malt House Operator Name Role Phone Name, Praneeth LECHUGA Primary Care Provider [phone] Allergies Active Allergy Reactions Criticality Noted Date Comments Haloperidol High 09/11/2013 Other reaction(s): Dystonia [place] 02/28/2025 Other Reaction(s): halcussion Olanzapine 03/09/2024 Oxycodone Dizziness 10/12/2024 Ziprasidone 09/11/2013 [...] chew, or split. 30 tablet 2 5 Active nicotine polacrilex (Nicotine Mini) 2 MG lozengeIndications: Tobacco dependency Dissolve 1 lozenge (2 mg) in the mouth if needed for smoking cessation. Weeks 1-6: 1 lozenge every 1-2 hrs (max 5 lozenges every 6 hrs; 20 lozenges/day ); Weeks 7-9: 1 lozenge every 2-4 hrs Weeks 10-12: 1 lozenge every 4-8 hrs 135 lozenge 2 5 03/30/20 25 Active Active Problems Problem Noted Date Diagnosed Date Bipolar 1 disorder ([facility]) 02/28/2025 Class 2 obesity 02/28/2025 Nicotine abuse 03/09/2024 Elevation of level of transa minase and lactic acid dehydrogenase (LDH) 03/09/2024 Schizoaffective disorder ([facility]) 01/25/2022 Bipolar affective disorder, current episode manic with psychotic symptoms ([facility]) 11/26/2020 Mild intermittent asthma 05/11/2016 Asthma 09/11/2013 Gastroesophageal reflux disease 09/11/2013 Depression 12/11/2010 Cannabis abuse 12/07/2010 Encounters Date Type Department Care Team Description 02/28/2025 11:30 AM EDT Office Visit [facility] [address] [place] [id number] Praneeth Lanier MD Recurrent cough (Primary Dx); Tobacco dependency; Schizoaffective disorder, unspecified type ([facility]); Encounter for immunization 02/28/2025 Travel 02/12/2025 Results Follow-Up [facility] [address] [place] [phone] Praneeth Lanier MD T-SPOT .TB 02/08/2025 10:40 AM EDT Office Visit [facility] [address] [place] [phone] Praneeth Lanier MD Chronic cough (Primary Dx); Tobacco dependency; Schizoaffective disorder, unspecified type ([facility]/HCC) 02/08/2025 Travel from Last 3 Months Immunizations Immunization Administration Dates Next Due Influenza injectable quadriv alent IIV4 with preservative 04/08/2017,05/11/2016 Influenza injectable quadriv alent preservative free 03/11/2023,06/26/2020,03/21/2019 Influenza, IIV3, injectable 03/24/2011, 1 Influenza, seasonal, injecta ble, preservative free 02/28/2025 Pneumococcal Conjugate PCV 20 12/08/2023 Td (adult), [...] your housing situation today? I have pema ila 02/28/[address] you li [...] Mass Index 35.97 02/28/2025 11:42 AM EDT Plan of Treatment Upcoming Encounters Date Type Department Care Team (Late st Contact Info) Description 04/30/2025 9:30 AM EST Office Visit [facility] [address] [place] [address] Name, MD Praneeth [address] [place] [address] Health Maintenance Due Date Last Done Comments Family Planning (PISQ) 2001 HPV Vaccines (1 - Male 3-dose series) 2001 Hepatitis B Vaccines (1 of 3 - 19+ 3-dose series) 2005 COVID-19 Vaccine ( season) 2025 Alcohol/Substance Use Screening 02/28/2026 02/28/2025 Depression Screening 02/28/2026 02/28/2025, 02/29/20 Disability Screening 02/28/2026 02/28/2025 SDOH Screening 02/28/2026 02/28/2025 Tobacco Screening 02/28/2026 02/28/2025 Lipid Panel 04/11/2029 04/11/2024, 06/26/2020 DTaP/Tdap/Td Vaccines [...] 05/10/2019 Hepatitis C Screening Completed 04/11/2024, 019 Influenza Vaccine Completed 02/28/2025, , 06/26/2020, Additional history exists HIB Vaccines Aged Out No longer eligi [...] PM EDT Schizoaffective disorder, unspecified type (HCC) T-SPOT(R).TB Routine 02/08/2025 12:09 PM EDT Chronic [...] Recently Relevant to Health Maintenance Results * ECG 12 lead (02/28/2025 12:52 PM EDT) Narrative Name, MD Praneeth - 02/28/2025 12:52 PM EDT NSR, HR 92, no ST-T changes, QTC of 425 us Praneeth Lanier MD ECG ORDERABLES Final Result * T-SPOT??.TB (02/08/2025 12:09 PM EDT) [facility] T Spot TB Negative Negative [facility] Comment:A negative test resu lt does [...] as aquantitative test. TS PANEL A 1 [facility] TS PANEL B 1 [facility] Negative Control Passed [facility] Positive Control Passed [facility] Comment:For additional infor srikanth, please refer tohttp://education.Slicebooks/faq/AFU553(This link is being provided for informational/educational purposes only.)THIS TEST WAS PERFORMED AT:[id number] [place] [address]VFXVXUKPEARL BECKER MD,PHD 02/08/2025 12:0 9 PM EDT 02/08/2025 1:38 PM EDT us Praneeth Lanier MD LAB BLOOD ORDERABLES Final Resul t Performing Organization Address City/State/[facility] Co de Phone Number [facility] [address] [place] [phone] * XR Chest 2 Views (02/08/2025 11:56 AM EDT) Anatomical Region Laterality Modality Chest Radiographic Sara ging 02/08/2025 11:5 6 AM EDT Narrative 02/08/2025 12:07 PM EDT [address] [address] XRay Report Signed Patient: Asif Vargas MR#: [id number] : 1985 Acct:[id number] Age/Sex: 39 / M ADM Date: 02/08/25 [facility]: Praneeth Lanier MD Ordering Physician: Praneeth Lanier MD Date of Service: 02/08/25 Procedure(s): XR chest 2V Accession Number(s): [id number] cc: Praneeth Lanier MD Reason for Exam: [...] 12:04 PM EDT RP Dictated By: Austyn Stinsno MD Signed By: <Electronically signed by Austyn Stinson MD in OV> 02/08/25 1204 DD/ 1156 TD/TT: 02/08/25 1157 Security Sme: Procedure Note Cristianter, Image - 02/08/2025 [facility] [address] [place] [address] XRay Report Signed Patient: Asif Vargas RMR#: [id number] : 1985Acct:[id number] Age/Sex: 39 / MADM Date: 02/08/25 Loc: [facility] Attending Dr: Praneeth Lanier MD Ordering Physician: Praneeth Lanier MD Date of Service: 02/08/25 Procedure(s): XR chest 2V Accession Number(s): [id number] cc: Praneeth Lanier MD Reason for Exam: [...] Austyn Stinson MD 02/08/2025 12:04 PM EDT Dictated By: Austyn Stinson MD Signed By: <Electronically signed by Austyn Stinson MD in OV> 02/08/25 1204 DD/ 1156 TD/TT: 02/08/25 1157 Security Sme: Praneeth Lanier MD IM XR PROCEDURES Final Result * Hepatitis C Antibody with Reflex to HCV, RNA, Quantitative, Real-Time PCR (04/11/2024 11:46 AM EST) Hepatitis C Antibody Nonreactive Nonreactive [facility] Comment:Antibodies to HCV no t detected; does not exclude early acuteHCV infection. Blood Venous blood specimen / Unknown 04/11/2024 11:46 AM EST 04/11/2024 11:46 AM EST us Praneeth Lanier MD LAB BLOOD ORDERABLES Final Resul t Performing Organization Address City/[facility]/ZIP Co de Phone Number [facility] [address] [place] [phone] * HIV-1/2 Antigen and Antibodies, Fourth Generation, with Reflexes (04/11/2024 11:46 AM EST) HIV AB/AG Nonreactive Nonreactive [facility] Comment:HIV-1 p24 Ag and/or HIV-1/HIV-2 Ab not detected.A test result that is nonreactive does not exclude thepossibility of exposure to or infection with HIV-1 and/orHIV-2. Nonreactive results in this assay for individualswith prior exposure to HIV-1 and/or HIV-2 may be due toantigen and antibody levels that are below the limit ofdetection of this assay.The [employer] HIV Ag/Ab Combo assay result andsupplemental assay results should be interpreted inconjunction with the patient's clinical presentation,history and other laboratory results. If the results areinconsistent with clinical evidence, additional testing issuggested to confirm the result. Blood Venous blood specimen / Unknown 04/11/2024 11:46 AM EST 04/11/2024 11:46 AM EST us Praneeth Lanier MD LAB BLOOD ORDERABLES Final Resul t Performing Organization Address City/[facility]/ZIP Co de Phone Number [facility] [address] [place] [address] [phone] * (ABNORMAL) Lipid Panel, Standard (04/11/2024 11:46 AM EST) Triglycerides 99 <150 mg/dL [facility] Comment:Desirable Triglyceri de: less than 150 mg/dLBorderline High Triglyceride 150-199 mg/dLHigh Triglyceride: 200-499 mg/dLVery High Triglyceride: greater than or equal to 5OO mg/dL Cholesterol 162 <200 mg/dL [facility] Comment:Desirable Cholestero l: less than 200 mg/dLBorderline High Cholesterol: 200-239 mg/dLHigh Cholesterol: greater than 239 mg/dL LDL Cholesterol Calculated 104(H) <100 mg/dL [facility] Comment:Desirable LDL: less than 100 mg/dLNear Optimal/Above Optimal LDL: 110- 129 mg/dLBorderline High LDL: 130-159 mg/dLHigh LDL: 160-189 mg/dLVery High LDL: greater than or equal to 190 mg/dL HDL Cholesterol 39(L) >40 mg/dL [facility] Comment:Desirable HDL: great er than 40 mg/dL Note: This HDL assay may give artificially low results in patients with liver disease. Blood Venous blood specimen / Unknown 04/11/2024 11:46 AM EST 04/11/2024 11:46 AM EST us Praneeth Lanier MD LAB BLOOD ORDERABLES Final Resul t [facility] [address] [place] [address] [phone] from Last 3 Months or Most Recently Relevant to Health Maintenance Insurance C3 Care Teams Malt House Operator Relationship Specialty Start Date End Date Name, MD Praneeth [address] [place] [phone] PCP - General Family Medicine 05/04/16
--- OUTSIDE RECORDS SUMMARY | 2025-03-01 09:28 | XMS_ITS | Encounter Summary ---
Author Organization [employer] Address [address] [facility] [address], [place] [address] Care Team Providers Care Grocery Team Member Name Role Phone Name, Praneeth LECHUGA Primary Care Provider [phone] Reason for Visit * Reason Onset Date Comments Call Back Request 10/26/2023 Encounter Details Date Type Department Care Team ([facility] st Contact Info) Description 10/26/2023 Telephone [facility] [address] [place], [place] [phone] Name, MD Praneeth [address] [place] [address] Call Back Request Social History Tobacco Use [...] Was prescribe Nicotine patches from [facility], but now he discharge from that facility and looking for nicotine patches rx by PCP. Pt. Is asking for rx. 7 mg Nicotine patches. Please review and advise. * Telephone Encounter - Estephanie Manrique - 10/26/2023 2:46 PM EDT Tc from [facility] requesting a call back, stated pt needs medications in specific nicotine patches. Please contact Lauren at [phone] documented in this encounter Plan of Treatment Upcoming Encounters Date Type Department Care Team (Late st Contact Info) Description 04/30/2025 9:30 AM EST Office Visit [facility] [address] [place] [address] Name, MD Praneeth [address] [place] [address] documented as of this encounter Visit Diagnoses Not on filedocumented in this encounter Care Teams Grocery Team Member Relationship Specialty Start Date End Date Name, MD Praneeth [address] [place] [address] PCP - General Family Medicine 05/04/16 documented as of this encounter
[2025-03-01 09:36] LABS: Hematocrit 44.9 % (42.0-52.0); Hemoglobin 14.7 g/dl (14.0-18.0); Imm Gran Abs Auto 0.04 X10*3/uL (0.00-0.03); Imm Gran Pct Auto 0.5 % (0.0-0.4); Lymphocytes Absolute Auto 1.2 X10*3/uL (1.2-4.9); Mean Corpuscular HGB Conc 32.7 g/dl (31.0-36.0); Mean Corpuscular Hemoglobin 25.6 pg (27.0-33.0); Mean Corpuscular Volume 78.1 fL (80.0-98.0); NRBC Abs Auto 0.000 X10*3/uL (0.0-0.012); NRBC Pct Auto 0.0 /100WBC (0.0-0.2); Platelet Count 187 X10*3/uL (160-400); Red Blood Count 5.75 X10*6/uL (4.60-5.80); White Blood Count 8.8 X10*3/uL (4.8-10.8)
[2025-03-01 11:19] LABS: Alanine Aminotransferase 36 U/L (0-40); Albumin Level 4.6 g/dL (3.5-5.0); Alkaline Phosphatase 84 U/L (39-117); Anion Gap 12 (12-20); Aspartate Amino Transferase 28 U/L (5-37); Blood Urea Nitrogen 26 mg/dL (9-16); Calcium 9.1 mg/dL (8.4-10.2); Carbon Dioxide 22 mmol/L (22-29); Chloride 110 mmol/L (96-108); Cholesterol 168 mg/dL (<200); Estimated Glomerular Filt Rate > 60; HDL Cholesterol 33 mg/dL (>40); Potassium 3.5 mmol/L (3.3-5.1); Sodium 140 mmol/L (135-145); Total Protein 6.7 g/dL (6.5-8.0); Triglycerides 58 mg/dL (<150)
== END 2025-03-01 09:04 | disposition home or self-care (01) ==
LOC: HO.LAB 09:03
PROVIDERS: PCP Internal Medicine Geriatric Medicine; Visit Provider Internal Medicine Geriatric Medicine
DX: F25.9 Schizoaffective disorder, unspecified (principal)
CPT/HCPCS: 36415; 80053; 80061; 83036; 85025

== ENCOUNTER 2025-03-25 15:39 | Outpatient (REF) | payer MEDICAID, SELFPAY ==
--- OUTSIDE RECORDS SUMMARY | 2025-03-22 09:30 | XMS_ITS | Encounter Summary ---
Author Organization [employer] Address [address] [facility] 7t [place] [address] Care Team Providers Care Manager Fine Name Role Phone Name, Praneeth LECHUGA Primary Care Provider [phone] Reason for Referral * Consultation (Routine) - Authorized Specialty Diagnoses / Procedures Referred By Alfa [email or web address] Referred To Contact Podiatry Diagnoses Callus of foot Jolly Alcaraz MD [address] [place] [address] Phone: tel: fax: Efrain Fernandez DPM [address] [facility] [address] [place] [address] Phone: tel: fax: Referral ID Status Reason Start Date Expiration Date Visits Requested Visits Authorized [id number] Authorized Specialty Services Required 03/22/2026 6 6 Encounter Details Date Type Department Care Team (Late st Contact Info) Description 03/22/2025 9:30 AM EDT Office Visit [facility] [address] [place] [id number] Fede Pride NP [address] [place] [address] Callus of foot (Primary Dx); Halitosis Social History Tobacco Use Types Packs/Day Years [...] Sign Reading Time Taken Comments Blood Pressure 108/80 03/22/2025 9:48 AM EDT Pulse 104 03/22/2025 9:48 AM EDT Temperature 35.8 C (96.5 F) 03/22/2025 9:48 AM EDT Respiratory Rate 20 03/22/2025 9:48 AM EDT Oxygen Saturation 98% 03/22/2025 9:48 AM EDT Inhaled Oxygen Concentration - - Weight 113 kg (249 lb) 03/22/2025 9:48 AM EDT Height 175 cm (5' 8.9 ) 03/22/2025 9:48 AM EDT Body Mass Index 36.88 03/22/2025 9:48 AM EDT documented in this encounter Progress Notes * Fede Pride NP - 03/22/2025 9:30 AM EDT Images from the original note were not included. Asif Vargas is a 39 y.o. male who presents for a acute visit regarding halitosis and bilateral foot pain. HPI Halitosis- -Onset- intermittent- 2 weeks - Duration- bad breath since Tuesday - Tooth ache- none- reports dental problem- cavities- last appointment 1 month ago- Dentistry in [place] - Mouth care- antiseptic mouth rinse- 1-2 times per day - Recent URI- none - Recent sinus infection- none - GERD- omeprazole 20 mg- reports this is effective. - Vapping- daily - Smoking- in remission from cigarettes and marijuana- started smoking 23 years - Reports in the care of a dentist. Foot pain-bilateral - Onset - 4 years; 7 months - Location- dorsum of bilateral feet. - Pain - 4/10, intermittent, stinging/tingling - Injury, Loss of sensation or numbness, or burning- none Problem List[1] Allergies[2] Review of Systems Constitutional: Negative for activity change and fever. HENT: Positive for dental problem. Negative for congestion, ear discharge, ear pain, sinus pressure, sinus pain and sore throat. Respiratory: Positive for cough. Negative for shortness of breath. Gastrointestinal: Negative for abdominal pain, nausea and vomiting. Vitals: 03/22/25 0948 BP: 108/80 Pulse: 104 Resp: 20 Temp: 96.5 ??F (35.8 ??C) TempSrc: Temporal SpO2: 98% Weight: 249 lb (113 kg) Height: 5' 8.9 (1.75 m) Physical Exam Constitutional: General: He is awake. Appearance: Normal appearance. He is well-developed. HENT: Right Ear: Hearing, tympanic membrane and external ear normal. No tenderness. There is no impacted cerumen. No mastoid tenderness. Tympanic membrane is not perforated or erythematous. Left Ear: Hearing, tympanic membrane and external ear normal. No tenderness. There is no impacted cerumen. No mastoid tenderness. Tympanic membrane is not perforated or erythematous. Nose: No nasal deformity, nasal tenderness or congestion. Mouth/Throat: Lips: [place]. Mouth: Mucous membranes are dry. Dentition: Abnormal dentition. Pharynx: Oropharynx is clear. No pharyngeal swelling or posterior oropharyngeal erythema. Tonsils: No tonsillar exudate. Comments: cavities Cardiovascular: Rate and Rhythm: Normal rate and regular rhythm. Heart sounds: Normal heart sounds, S1 normal and S2 normal. Pulmonary: Effort: Pulmonary effort is normal. Breath sounds: Normal breath sounds and air entry. No decreased air movement or transmitted upper airway sounds. Musculoskeletal: Feet: Feet: Comments: Callused areas - bottom of feet Position sense- able to perceive Sharp sense- yes Neurological: Mental Status: He is alert. Psychiatric: Behavior: Behavior is cooperative. Assessment & Plan Callus of foot Informed he will be referred to the senior clinical data manager for further care. Orders: Referral to Podiatry; Future Halitosis Unknown etiology Encouraged to continue with mouth care- twice daily Encouraged to follow-up with the dentist regarding further care of the cavities. Current Medications[3] Follow up if symptoms worsen or fail to improve. [facility] SECTION LABORER Attestation SECTION LABORER Resident Attestation: Patient was seen and evaluated by Fede MACHADO, in collaboration with Jolly Garcia MD who has reviewed my assessment and plan. I, Jolly Garcia MD , have reviewed the resident's note and agree with the assessment &plan of care as documented above. [1] Patient Active Problem List Diagnosis Asthma Bipolar affective disorder, current episode manic with psychotic symptoms ([facility] ([facility]) Depression Gastroesophageal reflux disease Mild intermittent asthma Schizoaffective disorder ([facility]) ([facility]) Nicotine abuse Elevation of level of transaminase and lactic acid dehydrogenase (LDH) Cannabis abuse Bipolar 1 disorder ([facility]) ([facility]) Class 2 obesity [2] Allergies Allergen Reactions Haloperidol Other reaction(s): Dystonia [place] Other Reaction(s): halcussion Olanzapine Oxycodone Dizziness Ziprasidone [3] Current Outpatient Medications: albuterol 108 (90 Base) MCG/ACT inhaler, Inhale 2 puffs every 6 (six) hours if needed for wheezing., Disp: 18 g, Rfl: 11 ARIPiprazole ER 960 MG/3.2ML prefilled syringe, Inject 3.2 mL into the muscle every 8 (eight) weeks., Disp: , Rfl: Banophen 50 MG capsule, Take 2 capsules by mouth at bedtime., Disp: , Rfl: cloZAPine (Clozaril) 25 MG tablet, 1 tab by mouth once daily x 1 day, 2 tabs daily x 1 day, continue to increase by 1 tab daily until reaching 8 tabs once daily, Disp: , Rfl: cloZAPine (Fazaclo) 200 MG disintegrating tablet, Take 200 mg by mouth at bedtime., Disp: , Rfl: hydrOXYzine pamoate (Vistaril) 50 MG capsule, , Disp: , Rfl: nicotine polacrilex (Nicotine Mini) 2 MG lozenge, Dissolve 1 lozenge (2 mg) in the mouth if needed for smoking cessation. Weeks 1-6: 1 lozenge every 1-2 hrs (max 5 lozenges every 6 hrs; 20 lozenges/day); Weeks 7-9: 1 lozenge every 2-4 hrs Weeks 10-12: 1 lozenge every 4-8 hrs, Disp: 135 lozenge, Rfl: 2 omeprazole OTC (PriLOSEC OTC) 20 MG EC tablet, Take 1 tablet (20 mg) by mouth before breakfast. Do not crush, chew, or split., Disp: 30 tablet, Rfl: 2 documented in this encounter Plan of Treatment Upcoming Encounters Date Type Department Care Team (Late st Contact Info) Description 04/30/2025 9:30 AM EST Office Visit [facility] [address] [place] [address] Name, MD Praneeth [address] [place] [address] Scheduled Referrals Name Type Priority Associated Diagnoses Orde r Schedule Referral to Podiatry Outpatient Referral Routine Callus of foot Expected: 03/22/2025 (Approximate), Expires: 03/22/2026 documented as of this encounter Visit Diagnoses Diagnosis Callus of foot- Primary Corns and callosities Halitosis Other symptoms involving head and neck documented in this encounter Additional Health Concerns Assessment Noted Time PHQ-9 Depression Total Score: 2 02/29/20 25 11:43 AM EDT documented as of this encounter Care Teams Manager Fine Relationship Specialty Start Date End Date Name, MD Praneeth [address] [place] [address] PCP - General Family Medicine 05/04/16 documented as of this encounter
[2025-03-25 15:51] LABS: MANUAL DIFF FLAG NO
[2025-03-25 17:23] LABS: Hematocrit 45.9 % (42.0-52.0); Hemoglobin 14.6 g/dl (14.0-18.0); Imm Gran Abs Auto 0.05 X10*3/uL (0.00-0.03); Imm Gran Pct Auto 0.6 % (0.0-0.4); Lymphocytes Absolute Auto 1.9 X10*3/uL (1.2-4.9); Mean Corpuscular HGB Conc 31.8 g/dl (31.0-36.0); Mean Corpuscular Hemoglobin 25.1 pg (27.0-33.0); Mean Corpuscular Volume 79.0 fL (80.0-98.0); NRBC Abs Auto 0.000 X10*3/uL (0.0-0.012); NRBC Pct Auto 0.0 /100WBC (0.0-0.2); Platelet Count 225 X10*3/uL (160-400); Red Blood Count 5.81 X10*6/uL (4.60-5.80); White Blood Count 7.8 X10*3/uL (4.8-10.8)
--- OUTSIDE RECORDS SUMMARY | 2025-03-25 18:44 | XMS_ITS | Encounter Summary ---
Author Organization [employer] Address [address] [facility] 7[address] [place] [address] Care Team Providers Care Sanitation Officer Name Role Phone Name, Praneeth LECHUGA Primary Care Provider Reason for Visit * Reason Onset Date Comments Call Back Request 10/26/2023 Encounter Details Date Type Department Care Team ([facility] st Contact Info) Description 10/26/2023 Telephone [facility] [address] [place], [place] [phone] Name, MD Praneeth [address] [place] [address] Call Back Request Social History Tobacco Use Types Packs/Day Years Used Date Smoking Tobacco: Every Day Cigarettes Smokeless Tobacco: Never Housing Stability Answer Date Recorded What is your housing situation today? I do not have housing (Staying with others, in a hotel, in a correction, living outside on the street, on a [...] states pt. Was prescribe Nicotine patches from [facility], but now he discharge from that facility and looking for nicotine patches rx by PCP. Pt. Is asking for rx. 7 mg Nicotine patches. Please review and advise. * Telephone Encounter - Estephanie Manrique - 10/26/2023 2:46 PM EDT Tc from [facility] requesting a call back, stated pt needs medications in specific nicotine patches. Please contact Lauren at [phone] documented in this encounter Plan of Treatment Upcoming Encounters Date Type Department Care Team (Late st Contact Info) Description 04/30/2025 9:30 AM EST Office Visit [facility] [address] [place] [address] Name, MD Praneeth [address] [place] [address] documented as of this encounter Visit Diagnoses Not on filedocumented in this encounter Care Teams Sanitation Officer Relationship Specialty Start Date End Date Name, MD Praneeth [address] [place] [address] PCP - General Family Medicine 05/04/16 documented as of this encounter
--- OUTSIDE RECORDS SUMMARY | 2025-03-25 18:44 | XMS_ITS | Clinical Summary ---
Author Organization [employer] Address [address] [facility] 7t [place] [address] Care Team Providers Care Environmental Lawyer Name Role Phone Name, Praneeth LECHUGA Primary Care Provider [phone] Allergies Active Allergy Reactions Criticality Noted Date Comments Haloperidol High 09/11/2013 Other reaction(s): Dystonia [place] 02/28/2025 Other Reaction(s): halcussion Olanzapine 03/09/2024 Oxycodone [...] Noted Date Diagnosed Date Bipolar 1 disorder ([facility]) 02/28/2025 Class 2 obesity 02/28/2025 Nicotine abuse 03/09/2024 Elevation of level of transa minase and lactic acid dehydrogenase (LDH) 03/09/2024 Schizoaffective disorder ([facility]) 01/25/2022 Bipolar affective disorder, current episode manic with psychotic symptoms ([facility]) 11/26/2020 Mild intermittent asthma 05/11/2016 Asthma 09/11/2013 Gastroesophageal reflux disease 09/11/2013 Depression 12/11/2010 Cannabis abuse 12/07/2010 Encounters Date Type Department Care Team Description 03/22/2025 9:30 AM EDT Office Visit [facility] MED[facility] [address] [place] [phone] Maggy Pride NP Callus of foot (Primary Dx); Halitosis 03/22/2025 Travel 03/07/2025 Results Follow-Up [facility] [address] [place] [address] Praneeth Lanier MD CBC auto differential, Comprehensive Metabolic Panel, Lipid Panel, Standard, Hemoglobin A1c 02/28/2025 11:30 AM EDT Office Visit [address] [address] Praneeth Lanier MD Recurrent cough (Primary Dx); Tobacco dependency; Schizoaffective disorder, unspecified type (HCC); Encounter for immunization 02/28/2025 Travel 02/12/2025 Results Follow-Up [facility] [address] [place] [phone] Praneeth Lanier MD T-SPOT .TB 02/08/2025 10:40 AM EDT Office Visit [facility] WALK-IN [address] [address] Name, MD Praneeth Chronic cough (Primary Dx); Tobacco dependency; Schizoaffective disorder, unspecified type ([facility]) 02/08/2025 Travel from Last 3 Months Immunizations [...] Mass Index 36.88 03/22/2025 9:48 AM EDT Plan of Treatment Upcoming Encounters Date Type Department Care Team (Late st Contact Info) Description 04/30/2025 9:30 AM EST Office Visit [facility] [address] [place] [address] Name, MD Praneeth [address] [place] [address] Health Maintenance Due Date Last Done Comments Family Planning (PISQ) 2001 HPV Vaccines (1 - Male 3-dose series) 2001 Hepatitis B Vaccines (1 of 3 - 19+ 3-dose series) 2005 COVID-19 Vaccine ( season) 2025 Alcohol/Substance Use Screening 02/28/2026 02/28/2025 Depression Screening 02/28/2026 02/28/2025, 02/29/20 Disability Screening 02/28/2026 02/28/2025 SDOH Screening 02/28/2026 02/28/2025 Tobacco Screening 03/22/2026 03/22/2025 Lipid Panel 03/01/2030 03/01/2025, 03/30, 06/26/2020 DTaP/Tdap/Td Vaccines (6 - Td or [...] Procedure Name Priority Date/Time Associated Diagnosis Comments HEMOGLOBIN A1C Routine 03/01/2025 9:13 AM EDT Schizoaffective disorder, unspecified type (HCC) LIPID PANEL, STANDARD Routine 03/01/2025 9:13 AM EDT Schizoaffective disorder, unspecified type (HCC) COMPREHENSIVE METABOLIC PANEL Routine 03/01/2025 9:13 AM EDT Schizoaffective disorder, unspecified type (HCC) CBC WITH AUTO DIFFERENTIAL Routine 03/01/2025 9:13 AM EDT Schizoaffective disorder, unspecified type (HCC) ECG 12-LEAD Routine 02/28/2025 12:52 PM EDT [...] Recently Relevant to Health Maintenance Results * (ABNORMAL) CBC auto differential (03/01/2025 9:13 AM EDT) White Blood Count 8.8 4.8 - 10.8 X10*3/uL [facility] Red Blood Count 5.75 4.60 - 5.80 X10*6/uL [facility] Hemoglobin 14.7 14.0 - 18.0 g/dl [facility] Hematocrit 44.9 42.0 - 52.0 % [facility] Mean Corpuscular Volume 78.1(L) 80.0 - 98.0 fL [facility] Mean Corpuscular Hemoglobin 25.6(L) 27.0 - 33.0 pg [facility] Mean Corpuscular HGB Conc 32.7 31.0 - 36.0 g/dl [facility] Red Cell Distribution Width 14.6 11.0 - 16.0 % [facility] Platelet Count 187 160 - 400 X10*3/uL [facility] Mean Platelet Volume 10.2 9.4 - 12.4 fL [facility] Neutrophils Percent Auto 77.8(H) 45 - 73 % [facility] Imm Gran Pct Auto 0.5(H) 0.0 - 0.4 % [facility] Lymphocytes Percent Auto 13.7(L) 20 - 40 % [facility] Monocytes Percent Auto 6.9 2 - 11 % [facility] Eosinophils Percent Auto 0.9 0 - 4 % [facility] Basophils Percent Auto 0.2 0 - 2 % [facility] NRBC Pct Auto 0.0 0.0 - 0.2 /100WBC [facility] Neutrophils Absolute Auto 6.9 2.0 - 8.3 x10*3/uL [facility] Imm Gran Abs Auto 0.04(H) 0.00 - 0.03 X10*3/uL [facility] Lymphocytes Absolute Auto 1.2 1.2 - 4.9 X10*3/uL [facility] Monocytes Absolute Auto 0.6 0.1 - 1.2 X10*3/uL [facility] Eosinophils Absolute Auto 0.1 0.0 - 0.4 X10*3/uL [facility] Basophils Absolute Auto 0.0 0.0 - 0.2 X10*3/uL [facility] NRBC Abs Auto 0.000 0.0 - 0.012 X10*3/uL [facility] Blood Venous blood specimen / Unknown 03/01/2025 9:13 AM EDT 03/01/2025 9:13 AM EDT us Praneeth Name LAB BLOOD ORDERABLES Final Resul t [facility] [address] [place] [phone] * Hemoglobin A1c (03/01/2025 9:13 AM EDT) Hemoglobin A1c 5.6 <6.0 % [facility] Comment:Hemoglobin A1C Refer ence Range Adults: 4.8 - 6.0 % Non diabetic: < 6.0 % Goal: < 7.0 %Additional Action Suggested: > 8.0 %Note: Hemoglobin A1c results are invalid for patients with abnormal amounts of HbF. Blood transfusions may impact the HbA1c concentration in the patient sample. Estimated Average Glucose 114 mg/dL [facility] Comment:eAG = Estimated ave rage glucose which is %A1C expressed asaverage glucose, using the formula of the T2S-UrkrdzcUgmsukg Glucose study (ADAG), Diabetes Care, Vol.31,#8,Dec. 2007 Blood Venous blood specimen / Unknown 03/01/2025 9:13 AM EDT 03/01/2025 9:13 AM EDT us Praneeth Name LAB BLOOD ORDERABLES Final Resul t [facility] [address] [place] [phone] * (ABNORMAL) Lipid Panel, Standard (03/01/2025 9:13 AM EDT) Triglycerides 58 <150 mg/dL [facility] Comment:Desirable Triglyceri de: less than 150 mg/dLBorderline High Triglyceride 150-199 mg/dLHigh Triglyceride: 200-499 mg/dLVery High Triglyceride: greater than or equal to 5OO mg/dL Cholesterol 168 <200 mg/dL [facility] Comment:Desirable Cholestero l: less than 200 mg/dLBorderline High Cholesterol: 200-239 mg/dLHigh Cholesterol: greater than 239 mg/dL LDL Cholesterol Calculated 124(H) <100 mg/dL [facility] Comment:Desirable LDL: less than 100 mg/dLNear Optimal/Above Optimal LDL: 110- 129 mg/dLBorderline High LDL: 130-159 mg/dLHigh LDL: 160-189 mg/dLVery High LDL: greater than or equal to 190 mg/dL HDL Cholesterol 33(L) >40 mg/dL [facility] Comment:Desirable HDL: great er than 40 mg/dL Note: This HDL assay may give artificially low results in patients with liver disease. Blood Venous blood specimen / Unknown 03/01/2025 9:13 AM EDT 03/01/2025 9:13 AM EDT us Praneeth Name MD LAB BLOOD ORDERABLES Final Resul t [facility] [address] [place] [phone] [phone] * (ABNORMAL) Comprehensive Metabolic Panel (03/01/2025 9:13 AM EDT) Sodium 140 135 - 145 mmol/L [facility] Potassium 3.5 3.3 - 5.1 mmol/L [facility] Chloride 110(H) 96 - 108 mmol/L [facility] Carbon Dioxide 22 22 - 29 mmol/L [facility] Anion Gap 12 12 - 20 [facility] Urea Nitrogen (BUN) 26(H) 9 - 16 mg/dL [facility] Creatinine, Serum 1.18 0.5 - 1.4 mg/dL [facility] Estimated Glomerular Filt Rate >60 [facility] Comment:Chronic Kidney Disea se: Estimated GFR < 60 mL/min/1.21h7Ozvelu Kidney Disease: Estimated GFR < 15 mL/min/1.73m2 Glucose 107 60 - 115 mg/dL [facility] Calcium 9.1 8.4 - 10.2 mg/dL [facility] Bilirubin, Total 0.7 0.0 - 1.0 mg/dL [facility] Aspartate Amino Transferase 28 5 - 37 U/L [facility] Alanine Aminotransferase 36 0 - 40 U/L [facility] Total Protein 6.7 6.5 - 8.0 g/dL [facility] Albumin Level 4.6 3.5 - 5.0 g/dL [facility] Alkaline Phosphatase 84 39 - 117 U/L [facility] Blood Venous blood specimen / Unknown 03/01/2025 9:13 AM EDT 03/01/2025 9:13 AM EDT us Praneeth Lanier MD LAB BLOOD ORDERABLES Final Resul t [facility] [address] [place] [address] [phone] * ECG 12 lead (02/28/2025 12:52 PM EDT) Narrative Name, MD Praneeth - 02/28/2025 12:52 PM EDT NSR, HR 92, no ST-T changes, QTC of 425 Praneeth Lanier MD ECG ORDERABLES Final Result * T-SPOT??.TB (02/08/2025 12:09 PM EDT) [facility] T Spot TB Negative Negative [facility] Comment:A negative test resu [...] as aquantitative test. TS PANEL A 1 [facility] TS PANEL B 1 [facility] Negative Control Passed [facility] Positive Control Passed [facility] Comment:For additional infor srikanth, please refer tohttp://education.Eoscene/faq/NLH059(This link is being provided for informational/educational purposes only.)THIS TEST WAS PERFORMED AT:[email or web address] [id number] [place] [address]LSUVGFQPEARL BECKER MD,PHD 02/08/2025 12:0 9 PM EDT 02/08/2025 1:38 PM EDT Praneeth Lanier MD LAB BLOOD ORDERABLES Final Resul t [facility] [address] [place] [phone] * XR Chest 2 Views (02/08/2025 11:56 AM EDT) Anatomical Region Laterality Modality Chest Radiographic Sara ging 02/08/2025 11:5 6 AM EDT Narrative 02/08/2025 12:07 PM EDT [address] [address] XRay Report Signed Patient: Asif Vargas MR#: [id number] : 1985 Acct:[id number] Age/Sex: 39 / M ADM Date: 02/08/25 Loc: .[facility]X Attending Dr: Praneeth Lanier MD Ordering Physician: Praneeth Lanier MD Date of Service: 02/08/25 Procedure(s): XR chest 2V Accession Number(s): [id number] cc: Praneeth Lanier MD Reason for Exam: [...] 02/08/25 1204 DD/ 1156 TD/TT: 02/08/25 [address] [place]: Procedure Note Donotflaviointerpreter, Image - 02/08/[address] [address] XRay Report Signed Patient: Asif Vargas RMR#: [id number] : 1985Acct:[id number] Age/Sex: 39 / MADM Date: 02/08/25 [facility]: [facility] Attending Dr: Praneeth Lanier MD Ordering Physician: Praneeth Lanier MD Date of Service: 02/08/25 Procedure(s): XR chest 2V Accession Number(s): [id number] cc: Praneeth Lanier MD Reason for Exam: [...] OV> 02/08/25 1204 DD/ 1156 TD/TT: 02/08/25 [address] [place]: Praneeth Lanier MD IM XR PROCEDURES Final Result * Hepatitis C Antibody with Reflex to HCV, RNA, Quantitative, Real-Time PCR (04/11/2024 11:46 AM EST) Hepatitis C Antibody Nonreactive Nonreactive [facility] Comment:Antibodies to HCV no t detected; does not exclude early acuteHCV infection. Blood Venous blood specimen / Unknown 04/11/2024 11:46 AM EST 04/11/2024 11:46 AM EST us Praneeth Lanier MD LAB BLOOD ORDERABLES Final Resul t Performing Organization Address [facility]/ZIP Co de Phone Number [facility] [address] [place] [phone] [phone] * HIV-1/2 Antigen and Antibodies, Fourth Generation, with Reflexes (04/11/2024 11:46 AM EST) [facility] HIV AB/AG Nonreactive Nonreactive [facility] Comment:HIV-1 p24 Ag and/or HIV-1/HIV-2 Ab not detected.A test result that is nonreactive does not exclude thepossibility of exposure to or infection with HIV-1 and/orHIV-2. Nonreactive results in this assay for individualswith prior exposure to HIV-1 and/or HIV-2 may be due toantigen and antibody levels that are below the limit ofdetection of this assay.The [employer] vascular solution HIV Ag/Ab Combo assay result andsupplemental assay results should be interpreted inconjunction with the patient's clinical presentation,history and other laboratory results. If the results areinconsistent with clinical evidence, additional testing issuggested to confirm the result. Blood Venous blood specimen / Unknown 04/11/2024 11:46 AM EST 04/11/2024 11:46 AM EST us Praneeth Lanier MD LAB BLOOD ORDERABLES Final Resul t Performing Organization Address City/[facility]/ZIP Co de Phone Number [facility] [address] [place] [address] [phone] from Last 3 Months or Most Recently Relevant [place] [id number] [facility] C3 Care Teams Environmental Lawyer Relationship Specialty Start Date End Date Name, MD Praneeth [address] [place] [address] PCP - General Family Medicine 05/04/16
--- OUTSIDE RECORDS SUMMARY | 2025-03-25 18:44 | XMS_ITS | Encounter Summary ---
Author Organization [employer] Address [address] [facility] [address] [place] [address] Care Team Providers Care Firer Locomotive Crane Name Role Phone Name, Praneeth LECHUGA Primary Care Provider [phone] Encounter Details Date Type Department Care Team (Latest Contact Info) Description 03/22/2025 Travel Social History Tobacco Use Types Packs/Day [...] Description 04/30/2025 9:30 AM EST Office Visit [facility] MED[facility] [address] [place] [phone] Name, MD Praneteh [address] [place] [address] documented as of this encounter Visit Diagnoses Not on filedocumented in this encounter Additional Health Concerns Assessment Noted Time PHQ-9 Depression Total Score: 2 02/29/20 25 11:43 AM EDT documented as of this encounter Care Teams Firer Locomotive Crane Relationship Specialty Start Date End Date Name, MD Praneeth [address] [place] [phone] PCP - General Family Medicine 05/04/16 documented as of this encounter
--- OUTSIDE RECORDS SUMMARY | 2025-03-25 18:44 | XMS_ITS | Encounter Summary ---
Author Organization [employer] Address [address] [facility] 7t [place] [address] Care Team Providers Care Combatant Diver Officer Name Role Phone Name, Praneeth LECHUGA Primary Care Provider [phone] Reason for Visit * Reason Comments Med Refill Encounter Details Date Type Department Care Team ([facility] st Contact Info) Description 12/02/2023 Refill [facility] [address] [place], [place] [phone] Name, MD Praneeth [address] [place] [address] Nicotine dependence, uncomplicated, unspecified nicotine product type Social History Tobacco Use Types Packs/Day Years Used Date Smoking Tobacco: Every Day Cigarettes Smokeless Tobacco: Never Housing Stability Answer Date Recorded What is your housing situation today? I do not have housing (Staying with others, in a hotel, in a mcc, living outside on the street, on a [...] Description 04/30/2025 9:30 AM EST Office Visit [facility] [address] [place] [phone] NamePraneeth MD [address] [place] [phone] documented as of this encounter Visit Diagnoses Diagnosis Nicotine dependence, uncomplicated, unspecified nicotine product type documented in this encounter Care Teams Combatant Diver Officer Relationship Specialty Start Date End Date Praneeth Lanier MD [address] [place] [phone] PCP - General Family Medicine 05/04/16 documented as of this encounter
== END 2025-03-25 15:40 | disposition home or self-care (01) ==
LOC: HO.LABR 15:39
PROVIDERS: PCP Internal Medicine Geriatric Medicine; Visit Provider Nurse Practitioner Psychiatric/Mental Health
DX: Z79.899 Other long term (current) drug therapy (principal)
CPT/HCPCS: 36415; 85025

== ENCOUNTER 2025-04-09 10:20 | Outpatient (REF) | payer MEDICAID, SELFPAY ==
--- OUTSIDE RECORDS SUMMARY | 2025-04-09 09:15 | XMS_ITS | Encounter Summary ---
Author Organization [facility] Address [address] [place] [address] Care Team Providers Care Air Export Operations Agent Name Role Phone Jolly Alcaraz MD Primary Care Provide r Reason for Visit * Reason Comments Foot Pain Corns and callositie s * Consultation (Routine) - Pending Review Specialty Diagnoses / Procedures Referred By Alfa [email or web address] Referred To Contact Podiatry / Orthopaedic Surgery Diagnoses Corns and callosities Jolly Alcaraz MD [address] [place] [phone] Phone: tel: fax: Efrain Fernandez DPM [address] [phone] Phone: tel: fax: Referral ID Status Reason Start Date Expiration Date Visits Requested Visits Authorized [id number] Pending Review Specialty Services Required 03/25/2026 6 6 Encounter Details Date Type Department Care Team ([facility] st Contact Info) Description 04/09/2025 9:15 AM EST Office Visit [facility] Surgery - [place] [address] [phone] Efrain Fernandez DPM [address] [phone] Social History Tobacco Use Types Packs/Day Years Used Date Smoking Tobacco: Never Assessed Sex and Gender Information Value Date Recorded Sex Assigned at Not on file Legal Sex Male 3:56 PM EST Gender Identity Not on file Sexual Orientation Not on file documented as of this encounter Plan of Treatment Upcoming Encounters Date Type Department Care Team (Late st Contact Info) Description 06/12/2025 1:45 PM EST Office Visit [facility] [place] [address] [phone] Efrain Fernandez, DPM [address] [address] documented as of this encounter Visit Diagnoses Not on filedocumented in this encounter Historical Medications * This list may reflect changes made after this encounter. omeprazole (PriLOSEC) [address] capsule 06/22/2024 nicotine polacrilex (NICORETTE) 2 mg mini lozenge Use 1 lozenge (2 mg total) in the mouth or throat. 02/28/2025 hydrOXYzine pamoate (VISTARIL) 50 mg capsule 09/20/2023 diphenhydrAMINE (Banophen) 50 mg capsule Take 2 capsules (100 mg total) by mouth. 04/09/2024 cloZAPine (CLOZARIL) 25 mg tablet 1 tab by mouth once daily x 1 day, 2 tabs daily x 1 day, continue to increase by 1 tab daily until reaching 8 tabs once daily 10/22/2023 clotrimazole (LOTRIMIN) 1 % cream 15 Gm, 0 Refill(s), 0 Refills, 10/29/24 1:23:00 PM EDT, Partial fill upon patient request if the prescription is for a schedule II opioid drug. 10/29/2024 chlorhexidine (PERIDEX) 0.12 % solution RINSE MOUTH with 15 ML FOR 1 MINUTES, THEN SPIT OUT TWICE DAILY. DO NOT BREAK, CRUSH, DISSOLVE OR CHEW. 10/12/2024 ARIPiprazole lauroxil (Aristada) 1,064 mg/3.9 mL ER syringe Inject 3.9 mL (1,064 mg total) into the shoulder, thigh, or buttocks. 10/08/2024 ARIPiprazole (ABILIFY ASIMTUFII) 960 mg/3.2 mL ER injection Inject 3.2 mL (960 mg total) into the shoulder, thigh, or buttocks once every eight weeks. albuterol HFA (PROAIR HFA ; PROVENTIL HFA ; VENTOLIN HFA) 90 mcg/actuation inhaler Inhale 2 puffs by mouth every 6 hours as needed. 10/12/2024 6 added in this encounter Orders Outpatient Referral Count Last Ordered Date Fir st Ordered Date AMB REFERRAL TO PODIATRY 1 04/09/2025 documented in this encounter Care Teams Air Export Operations Agent Relationship Specialty Start Date End Date Jolly Alcaraz MD [address] [place] [phone] PCP - General Internal Medicine 03/26/25 documented as of this encounter
[2025-04-09 10:37] LABS: MANUAL DIFF FLAG NO
[2025-04-09 11:28] LABS: Hematocrit 47.3 % (42.0-52.0); Hemoglobin 15.0 g/dl (14.0-18.0); Imm Gran Abs Auto 0.06 X10*3/uL (0.00-0.03); Imm Gran Pct Auto 0.8 % (0.0-0.4); Lymphocytes Absolute Auto 1.6 X10*3/uL (1.2-4.9); Mean Corpuscular HGB Conc 31.7 g/dl (31.0-36.0); Mean Corpuscular Hemoglobin 25.4 pg (27.0-33.0); Mean Corpuscular Volume 80.0 fL (80.0-98.0); NRBC Abs Auto 0.000 X10*3/uL (0.0-0.012); NRBC Pct Auto 0.0 /100WBC (0.0-0.2); Platelet Count 205 X10*3/uL (160-400); Red Blood Count 5.91 X10*6/uL (4.60-5.80); White Blood Count 7.8 X10*3/uL (4.8-10.8)
--- OUTSIDE RECORDS SUMMARY | 2025-04-09 11:56 | XMS_ITS | Encounter Summary ---
Author Organization [employer] Address [address] [facility] 7t [place] [address] Care Team Providers Care Band Lining Bander Name Role Phone Name, Praneeth LECHUGA Primary Care Provider [phone] Reason for Visit * Reason Comments Med Refill Encounter Details Date Type Department Care Team ([facility] st Contact Info) Description 12/02/2023 Refill [facility] [address] [place], [place] [phone] Name, MD Praneeth [address] [place] [address] Nicotine dependence, uncomplicated, unspecified nicotine product type [...] Description 04/30/2025 9:30 AM EST Office Visit [facility] [address] [place] [phone] NamePraneeth MD [address] [place] [address] documented as of this encounter Visit Diagnoses Diagnosis Nicotine dependence, uncomplicated, unspecified nicotine product type documented in this encounter Care Teams Band Lining Bander Relationship Specialty Start Date End Date Praneeth Lanier MD [address] [place] [phone] PCP - General Family Medicine 05/04/16 documented as of this encounter
--- OUTSIDE RECORDS SUMMARY | 2025-04-09 11:56 | XMS_ITS | Clinical Summary ---
Author Organization 175 [facility] Address 175 [place] [address] Phone Care Team Providers Care Medical Sociologist Name Role Phone Jolly Alcaraz MD Primary Care Provide r Allergies Active Allergy Reactions Criticality Noted Date Comments Haloperidol Muscular Issues High 09/11/2013 Other reaction(s): Dystonia Olanzapine 03/09/2024 Oxycodone Dizziness 10/12/2024 Other Reaction(s): muscle pain, hives Ziprasidone 09/11/2013 Medications albuterol HFA (PROAIR HFA ; PROVENTIL HFA ; VENTOLIN HFA) 90 mcg/actuation inhaler Inhale 2 puffs by mouth every 6 hours as needed. 5 10/13/19 26 Active ARIPiprazole (ABILIFY ASIMTUFII) 960 mg/3.2 mL ER injection Inject 3.2 mL (960 mg total) into the shoulder, thigh, or buttocks once every eight weeks. Active ARIPiprazole lauroxil (Aristada) 1,064 mg/3.9 mL ER syringe Inject 3.9 mL (1,064 mg total) into the shoulder, thigh, or buttocks. 5 Active chlorhexidine (PERIDEX) 0.12 % solution RINSE MOUTH with 15 ML FOR 1 MINUTES, THEN SPIT OUT TWICE DAILY. DO NOT BREAK, CRUSH, DISSOLVE OR CHEW. 5 Active clotrimazole (LOTRIMIN) 1 % cream 15 Gm, 0 Refill(s), 0 Refills, 10/29/24 1:23:00 PM EDT, Partial fill upon patient request if the prescription is for a schedule II opioid drug. 5 Active cloZAPine (CLOZARIL) 25 mg tablet 1 tab by mouth once daily x 1 day, 2 tabs daily x 1 day, continue to increase by 1 tab daily until reaching 8 tabs once daily 4 Active diphenhydrAMINE (Banophen) 50 mg capsule Take 2 capsules (100 mg total) by mouth. 4 Active hydrOXYzine pamoate (VISTARIL) 50 mg capsule 4 Active nicotine polacrilex (NICORETTE) 2 mg mini lozenge Use 1 lozenge (2 mg total) in the mouth or throat. 5 Active omeprazole (PriLOSEC) [address] capsule 5 Active Encounters Date Type Department Care Team Description 04/09/2025 9:15 AM EST Office Visit Orthopedic Surgery [place] [address] [phone] Efrain Fernandez DPM from Last 3 Months Social History Tobacco Use Types Packs/Day Years Used Date Smoking Tobacco: Never Assessed Sex and Gender Information Value Date Recorded Sex Assigned at Not on file Legal Sex Male 3:56 PM EST Gender Identity Not on file Sexual Orientation Not on file Plan of Treatment Upcoming Encounters Date Type Department Care Team (Late st Contact Info) Description 06/12/2025 1:45 PM EST Office Visit [place] [address] [phone] Efrain Fernandez DPM [address] [phone] Health Maintenance Due Date Last Done Comments Hepatitis A Vaccines (1 of 2 - Risk 2-dose series) 2005 Hepatitis B Vaccines (1 of 3 - 19+ 3-dose series) 2005 HPV Vaccines (1 - 3-dose SCDM series) 2013 Social Influencers of Health Screening 03/14/2024 Depression Screening 05/30/2024 COVID-19 Vaccine ( season) 2025 Cholesterol Screening (Lipid Panel) 03/01/2030 03/01/2025, 11/27/2020 DTaP,Tdap,and Td Vaccines (6 - Td or Tdap) 02/06/2033 02/06/2023, 09/12/2019, 02/09/2015, Additional history exists RSV Immunization Adult Patients (1 - 1-dose 75+ series) 2061 Pneumococcal Vaccine: Pediatrics (0 to 5 Years) and At-Risk Patients (6 to 49 Years) Completed 12/08/2023 HIV Screening Completed 04/11/2024 Hepatitis C Screening Completed 04/11/2024 Influenza Vaccine Completed 02/28/2025, , 06/26/2020, Additional [...] to complete this topic RSV Immunization Patients Under 20 months Aged Out No longer eligible based on patient's age to complete this topic Varicella Vaccines Aged Out No longer eligible based on patient's age to complete this topic Insurance [facility] MEDICAID Care Teams Medical Sociologist Relationship Specialty Start Date End Date Jolly Alcaraz MD [address] [place] [phone] PCP - General Internal Medicine 03/26/25
--- OUTSIDE RECORDS SUMMARY | 2025-04-09 11:56 | XMS_ITS | Clinical Summary ---
Author Organization [employer] Address 75 [facility] 7t [place] [address] Care Team Providers Care Refrigerator Tester Name Role Phone Name, Praneeth LECHUGA Primary Care Provider [phone] Allergies Active Allergy Reactions Criticality Noted Date Comments Haloperidol High 09/11/2013 Other reaction(s): Dystonia [place] 02/28/2025 Other Reaction(s): halcussion Olanzapine 03/09/2024 Oxycodone [...] every 4-8 hrs 135 lozenge 2 5 Active Active Problems Problem Noted Date Diagnosed Date Bipolar 1 disorder ([facility]/HCC) 02/28/2025 Class 2 obesity 02/28/2025 Nicotine abuse 03/09/2024 Elevation of level of transa minase and lactic acid dehydrogenase (LDH) 03/09/2024 Schizoaffective disorder ([facility]) 01/25/2022 Bipolar affective disorder, current episode manic with psychotic symptoms ([facility]) 11/26/2020 Mild intermittent asthma 05/11/2016 Asthma 09/11/2013 Gastroesophageal reflux disease 09/11/2013 Depression 12/11/2010 Cannabis abuse 12/07/2010 Encounters Date Type Department Care Team Description 03/22/2025 9:30 AM EDT Office Visit [facility] [address] [place] [phone] Maggy Pride, SARAH BETH Callus of foot (Primary Dx); Halitosis 03/22/2025 Travel 03/07/2025 Results Follow-Up [facility] [address] [place] [phone] Praneeth Lanier MD CBC auto differential, Comprehensive Metabolic Panel, Lipid Panel, Standard, Hemoglobin A1c 02/28/2025 11:30 AM EDT Office Visit [facility] [address] [place] [address] Praneeth Lanier MD Recurrent cough (Primary Dx); Tobacco dependency; Schizoaffective disorder, unspecified type (HCC); Encounter for immunization 02/28/2025 Travel 02/12/2025 Results Follow-Up [facility] [address] [place] [address] Praneeth Lanier MD T-SPOT .TB 02/08/2025 10:40 AM EDT Office Visit [facility] [address] [address] Name, MD Praneeth Chronic cough (Primary Dx); Tobacco dependency; Schizoaffective disorder, unspecified type ([facility]/HCC) 02/08/2025 Travel from Last 3 Months Immunizations [...] Description 04/30/2025 9:30 AM EST Office Visit [facility] [address] [place] [address] Name, MD Praneeth [address] [place] [address] Health Maintenance Due Date Last Done Comments Family Planning (PISQ) 2001 HPV Vaccines (1 - Male 3-dose series) 2001 Hepatitis B Vaccines (1 of 3 - 19+ 3-dose series) 2005 COVID-19 Vaccine ( - season) 2025 Alcohol/Substance Use Screening 02/28/2026 02/28/2025 [...] Blood Count 8.8 4.8 - 10.8 X10*3/uL [facility] Red Blood Count 5.75 4.60 - 5.80 X10*6/uL [facility] Hemoglobin 14.7 14.0 - 18.0 g/dl [facility] Hematocrit 44.9 42.0 - 52.0 % [facility] Mean Corpuscular Volume 78.1(L) 80.0 - 98.0 fL [facility] Mean Corpuscular Hemoglobin 25.6(L) 27.0 - 33.0 pg [facility] Mean Corpuscular HGB Conc 32.7 31.0 - 36.0 g/dl [facility] Red Cell Distribution Width 14.6 11.0 - 16.0 % [facility] Platelet Count 187 160 - 400 X10*3/uL [facility] Mean Platelet Volume 10.2 9.4 - 12.4 fL [facility] Neutrophils Percent Auto 77.8(H) 45 - 73 % [facility] Imm Gran Pct Auto 0.5(H) 0.0 - 0.4 % [facility] Lymphocytes Percent Auto 13.7(L) 20 - 40 % [facility] Monocytes Percent Auto 6.9 2 - 11 % [facility] Eosinophils Percent Auto 0.9 0 - 4 % [facility] Basophils Percent Auto 0.2 0 - 2 % [facility] NRBC Pct Auto 0.0 0.0 - 0.2 /100WBC [facility] Neutrophils Absolute Auto 6.9 2.0 - 8.3 x10*3/uL [facility] Imm Gran Abs Auto 0.04(H) 0.00 - 0.03 X10*3/uL [facility] Lymphocytes Absolute Auto 1.2 1.2 - 4.9 X10*3/uL [facility] Monocytes Absolute Auto 0.6 0.1 - 1.2 X10*3/uL [facility] Eosinophils Absolute Auto 0.1 0.0 - 0.4 X10*3/uL [facility] Basophils Absolute Auto 0.0 0.0 - 0.2 X10*3/uL [facility] NRBC Abs Auto 0.000 0.0 - 0.012 X10*3/uL [facility] Blood Venous blood specimen / Unknown 03/01/2025 9:13 AM EDT 03/01/2025 9:13 AM EDT us Praneeth Name LAB BLOOD ORDERABLES Final Resul t [facility] [address] [place] [address] [phone] * Hemoglobin A1c (03/01/2025 9:13 AM EDT) Hemoglobin A1c 5.6 <6.0 % [facility] Comment:Hemoglobin A1C Refer ence Range Adults: 4.8 - 6.0 % Non diabetic: < 6.0 % Goal: < 7.0 %Additional Action Suggested: > 8.0 %Note: Hemoglobin A1c results are invalid for patients with abnormal amounts of HbF. Blood transfusions may impact the HbA1c concentration in the patient sample. Estimated Average Glucose 114 mg/dL [facility] Comment:eAG = Estimated ave rage glucose which is %A1C expressed asaverage glucose, using the formula of the X0N-GynavmzIrcizhf Glucose study (ADAG), Diabetes Care, Vol.31,#8,Dec. 2007 Blood Venous blood specimen / Unknown 03/01/2025 9:13 AM EDT 03/01/2025 9:13 AM EDT us Praneeth Name LAB BLOOD ORDERABLES Final Resul t [facility] [address] [place] [phone] * (ABNORMAL) Lipid Panel, Standard (03/01/2025 9:13 AM EDT) Triglycerides 58 <150 mg/dL [facility] Comment:Desirable Triglyceri de: less than 150 mg/dLBorderline High Triglyceride 150-199 mg/dLHigh Triglyceride: 200-499 mg/dLVery High Triglyceride: greater than or equal to 5OO mg/dL Cholesterol 168 <200 mg/dL [facility] Comment:Desirable Cholestero l: less than 200 mg/dLBorderline High Cholesterol: 200-239 mg/dLHigh Cholesterol: greater than 239 mg/dL LDL Cholesterol Calculated 124(H) <100 mg/dL [facility] Comment:Desirable LDL: less than 100 mg/dLNear Optimal/Above Optimal LDL: 110- 129 mg/dLBorderline High LDL: 130-159 mg/dLHigh LDL: 160-189 mg/dLVery High LDL: greater than or equal to 190 mg/dL HDL Cholesterol 33(L) >40 mg/dL [facility] Comment:Desirable HDL: great er than 40 mg/dL Note: This HDL assay may give artificially low results in patients with liver disease. Blood Venous blood specimen / Unknown 03/01/2025 9:13 AM EDT 03/01/2025 9:13 AM EDT us Praneeth Lanier MD LAB BLOOD ORDERABLES Final Resul t [facility] [address] [place] [phone] * (ABNORMAL) Comprehensive Metabolic Panel (03/01/2025 9:13 AM EDT) Sodium 140 135 - 145 mmol/L [facility] Potassium 3.5 3.3 - 5.1 mmol/L [facility] Chloride 110(H) 96 - 108 mmol/L [facility] Carbon Dioxide 22 22 - 29 mmol/L [facility] Anion Gap 12 12 - 20 [facility] Urea Nitrogen (BUN) 26(H) 9 - 16 mg/dL [facility] Creatinine, Serum 1.18 0.5 - 1.4 mg/dL [facility] Estimated Glomerular Filt Rate >60 [facility] Comment:Chronic Kidney Disea se: Estimated GFR < 60 mL/min/1.86g5Evkibb Kidney Disease: Estimated GFR < 15 mL/min/1.73m2 Glucose 107 60 - 115 mg/dL [facility] Calcium 9.1 8.4 - 10.2 mg/dL [facility] Bilirubin, Total 0.7 0.0 - 1.0 mg/dL [facility] Aspartate Amino Transferase 28 5 - 37 U/L [facility] Alanine Aminotransferase 36 0 - 40 U/L [facility] Total Protein 6.7 6.5 - 8.0 g/dL [facility] Albumin Level 4.6 3.5 - 5.0 g/dL [facility] Alkaline Phosphatase 84 39 - 117 U/L [facility] Blood Venous blood specimen / Unknown 03/01/2025 9:13 AM EDT 03/01/2025 9:13 AM EDT us Praneeth Lanier MD LAB BLOOD ORDERABLES Final Resul t [facility] [address] [place] [address] [phone] * ECG 12 lead (02/28/2025 12:52 PM EDT) Narrative Name, MD Praneeth - 02/28/2025 12:52 PM EDT NSR, HR 92, no ST-T changes, QTC of 425 Praneeth Lanier MD ECG ORDERABLES Final Result * T-SPOT??.TB (02/08/2025 12:09 PM EDT) Pathologist [facility] T Spot TB Negative Negative [facility] Comment:A negative test resu lt does [...] as aquantitative test. TS PANEL A 1 [facility] TS PANEL B 1 [facility] Negative Control Passed [facility] Positive Control Passed [facility] Comment:For additional infor mation, please refer tohttp://education.[employer]/faq/WEQ994(This link is being provided for informational/educational purposes only.)THIS TEST WAS PERFORMED AT:[employer] [id number] [place] [address]GESKKJYPEARL BECKER MD,PHD 02/08/2025 12:0 9 PM EDT 02/08/2025 1:38 PM EDT Praneeth Lanier MD LAB BLOOD ORDERABLES Final Resul t [facility] [address] [place] [phone] * XR Chest 2 Views (02/08/2025 11:56 AM EDT) Anatomical Region Laterality Modality Chest Radiographic Sara ging 02/08/2025 11:5 6 AM EDT Narrative 02/08/2025 12:07 PM EDT [address] [address] XRay Report Signed Patient: Asif Vargas MR#: [id number] : 1985 Acct:[id number] Age/Sex: 39 / M ADM Date: 02/08/25 Loc: .HHCX Attending Dr: Praneeth Lanier MD Ordering Physician: Praneeth Lanier MD Date of Service: 02/08/25 Procedure(s): XR chest 2V Accession Number(s): [id number] cc: Praneeth Lanier MD Reason for Exam: [...] 02/08/25 1204 DD/ 1156 TD/TT: 02/08/25 1157 Radiator Tester: Procedure Note Domitila, Image - 02/08/[address] [address] XRay Report Signed Patient: Asif Vargas RMR#: [id number] : 1985Acct:[id number] Age/Sex: 39 / MADM Date: 02/08/25 Loc: .HHCX Attending Dr: Praneeth Lanier MD Ordering Physician: Praneeth Lanier MD Date of Service: 02/08/25 Procedure(s): XR chest 2V Accession Number(s): [id number] cc: Praneeth Lanier MD Reason for Exam: [...] 02/08/25 1204 DD/ 1156 TD/TT: 02/08/25 1157 Radiator Tester: Praneeth Lanier MD IM XR PROCEDURES Final Result * Hepatitis C Antibody with Reflex to HCV, RNA, Quantitative, Real-Time PCR (04/11/2024 11:46 AM EST) Hepatitis C Antibody Nonreactive Nonreactive [facility] Comment:Antibodies to HCV no t detected; does not exclude early acuteHCV infection. Blood Venous blood specimen / Unknown 04/11/2024 11:46 AM EST 04/11/2024 11:46 AM EST us Praneeth Lanier MD LAB BLOOD ORDERABLES Final Resul t Performing Organization Address [facility] Co de Phone Number [facility] [address] [place] [phone] [phone] * HIV-1/2 Antigen and Antibodies, Fourth Generation, with Reflexes (04/11/2024 11:46 AM EST) [facility] HIV AB/AG Nonreactive Nonreactive [facility] Comment:HIV-1 p24 Ag and/or HIV-1/HIV-2 Ab not detected.A test result that is nonreactive does not exclude thepossibility of exposure to or infection with HIV-1 and/orHIV-2. Nonreactive results in this assay for individualswith prior exposure to HIV-1 and/or HIV-2 may be due toantigen and antibody levels that are below the limit ofdetection of this assay.The [employer]oster[employer] HIV Ag/Ab Combo assay result andsupplemental assay results should be interpreted inconjunction with the patient's clinical presentation,history and other laboratory results. If the results areinconsistent with clinical evidence, additional testing issuggested to confirm the result. Blood Venous blood specimen / Unknown 04/11/2024 11:46 AM EST 04/11/2024 11:46 AM EST us Praneeth Lanier MD LAB BLOOD ORDERABLES Final Resul t Performing Organization Address [facility]/ZIP Co de Phone Number [facility] [address] [place] [address] [phone] from Last 3 Months or Most Recently Relevant to Health Maintenance [place] [address] [address] [place] [id number] C3 Care Teams Refrigerator Tester Relationship Specialty Start Date End Date Name, MD Praneeth [address] [place] [address] PCP - General Family Medicine 05/04/16
--- OUTSIDE RECORDS SUMMARY | 2025-04-09 11:56 | XMS_ITS | Encounter Summary ---
Author Organization [employer] Address 75 [facility] 7t [place] [address] Care Team Providers Care Machine Try Out Setter Name Role Phone Name, Praneeth LECHUGA Primary Care Provider [phone] Reason for Visit * Reason Onset Date Comments Call Back Request 10/26/2023 Encounter Details Date Type Department Care Team ([facility] st Contact Info) Description 10/26/2023 Telephone [facility] [address] [place], [place] [phone] Name, MD Praneeth [address] [place] [address] Call Back Request Social History Tobacco Use Types Packs/Day Years Used Date Smoking Tobacco: Every Day Cigarettes Smokeless Tobacco: Never Housing Stability Answer Date Recorded What is your housing situation today? I do not have housing (Staying with others, in a hotel, in a custodial, living outside on the street, on a [...] prescribe Nicotine patches from [facility], but now he discharge from that facility and looking for nicotine patches rx by PCP. Pt. Is asking for rx. 7 mg Nicotine patches. Please review and advise. * Telephone Encounter - Estephanie Manrique - 10/26/2023 2:46 PM EDT Tc from [facility] requesting a call back, stated pt needs medications in specific nicotine patches. Please contact Lauren at [phone] documented in this encounter Plan of Treatment Upcoming Encounters Date Type Department Care Team (Late st Contact Info) Description 04/30/2025 9:30 AM EST Office Visit [facility] [address] [place] [address] Name, MD Praneeth [address] [place] [address] documented as of this encounter Visit Diagnoses Not on filedocumented in this encounter Care Teams Machine Try Out Setter Relationship Specialty Start Date End Date Name, MD Praneeth [address] [place] [address] PCP - General Family Medicine 05/04/16 documented as of this encounter
== END 2025-04-09 10:21 | disposition home or self-care (01) ==
LOC: HO.LABR 10:20
PROVIDERS: PCP Internal Medicine Geriatric Medicine; Visit Provider Nurse Practitioner Psychiatric/Mental Health
DX: Z79.899 Other long term (current) drug therapy (principal)
CPT/HCPCS: 36415; 85025

== ENCOUNTER 2025-05-14 11:47 | Outpatient (REF) | payer MEDICAID, SELFPAY ==
[2025-05-14 12:22] LABS: Hematocrit 44.7 % (42.0-52.0); Hemoglobin 14.5 g/dl (14.0-18.0); Mean Corpuscular HGB Conc 32.4 g/dl (31.0-36.0); Mean Corpuscular Hemoglobin 25.9 pg (27.0-33.0); Mean Corpuscular Volume 79.8 fL (80.0-98.0); NRBC Abs Auto 0.000 X10*3/uL (0.0-0.012); NRBC Pct Auto 0.0 /100WBC (0.0-0.2); Platelet Count 197 X10*3/uL (160-400); Red Blood Count 5.60 X10*6/uL (4.60-5.80); White Blood Count 8.8 X10*3/uL (4.8-10.8)
[2025-05-14 12:33] LABS: Baso%MD 0.7 %; Eos%MD 0.9 %; IG%MD 5.1 %; Lymph%MD 16.2 %; Mono%MD 6.1 %; Neut%MD 71.0 %
[2025-05-14 13:07] LABS: Atypical Lymph Absolute Manual 0.1 x10*3/uL; Atypical Lymphs Percent Manual 1 % (0-6); Band Neutrophils Percent 5 % (3-5); Basophils Abs Manual 0.1 X10*3/uL (0.0-0.2); Basophils Percent Manual 1 % (0-2); Eosinophils Absolute Manual 0.1 X10*3/uL (0.0-0.4); Eosinophils Percent Manual 1 % (0-4); Lymphocytes Absolute Manual 1.1 X10*3/uL (1.2-4.9); Lymphocytes Percent Manual 12 % (20-40); Metamyelocytes Absolute 0.2 X10*3/uL; Metamyelocytes Percent 2 %; Monocytes Absolute Manual 0.4 X10*3/uL (0.1-1.2); Monocytes Percent Manual 5 % (2-11); Neutrophils Absolute Manual 6.9 X10*3/uL (2.0-8.3); Neutrophils Percent Manual 73 % (45-73)
[2025-05-14 13:09] LABS: RBC Morphology NOTED; Tear Drop Cells 1+ (0-2) /OIF
--- OUTSIDE RECORDS SUMMARY | 2025-05-14 15:35 | XMS_ITS | Clinical Summary ---
Author Organization 175 [facility] Address 175 [place] [address] Phone Care Team Providers Care Hot Oiler Name Role Phone Jolly Alcaraz MD Primary [...] (PriLOSEC) [address] capsule 5 Active miconazole (Lotrimin AF) 2 % powder Apply topically 2 (two) times a day. 70 g 3 5 07/08/19 26 Active Encounters Date Type Department Care Team Description 04/09/2025 9:15 AM EST Office Visit Orthopedic Surgery [place] [phone] [phone] Efrain Fernandez DPM Tinea pedis of both feet (Primary Dx); Acquired hammer toe of right foot; Contracture of joint of right foot from Last 3 Months Social History Tobacco [...] 1:45 PM EST Office Visit Orthopedic Surgery [facility] [address] [phone] Efrain Fernandez DPM [address] [phone] Health Maintenance Due Date Last Done Comments Hepatitis A Vaccines (1 of 2 - Risk 2-dose series) 2005 Hepatitis B Vaccines (1 of 3 - 19+ 3-dose series) 2005 HPV Vaccines (1 - 3-dose SCDM series) 2013 Social Influencers of Health Screening 03/14/2024 Depression Screening 05/30/2024 COVID-19 Vaccine (2024- season) 2025 Cholesterol Screening (Lipid Panel) 03/01/2030 [...] patient's age to complete this topic Insurance [employer] Care Teams Hot Oiler Relationship Specialty Start Date End Date Jolly Alcaraz MD [address] [place] [phone] PCP - General Internal Medicine 03/26/25
--- OUTSIDE RECORDS SUMMARY | 2025-05-14 15:35 | XMS_ITS | Encounter Summary ---
Author Organization [employer] Address 75 [facility] 7t [place] [address] Care Team Providers Care Rn Liaison Name Role Phone Name, Praneeth LECHUGA Primary Care Provider [phone] Rut Carrizales RN Unavailable [phone] Melba Jain Unavailable Reason for Visit * Reason Onset Date Comments Call Back Request 10/26/2023 Encounter Details Date Type Department Care Team (Late st Contact Info) Description 10/26/2023 Telephone [facility] [address] [place], [place] [phone] Name, MD Praneeth [address] [place] [address] Call Back Request Social History Tobacco Use Types Packs/Day Years Used Date Smoking Tobacco: Every Day Cigarettes Smokeless Tobacco: Never Housing Stability Answer Date Recorded What is your housing situation today? I do not have housing (Staying with others, in a hotel, in a usp, living outside on the street, on a [...] states pt. Was prescribe Nicotine patches from [facility], but now he discharge from that facility and looking for nicotine patches rx by PCP. Pt. Is asking for rx. 7 mg Nicotine patches. Please review and advise. * Telephone Encounter - Estephanie Manrique - 10/26/2023 2:46 PM EDT Tc from [facility] requesting a call back, stated pt needs medications in specific nicotine patches. Please contact Lauren at [phone] documented in this encounter Plan of Treatment Not on file documented as of this encounter Visit Diagnoses Not on filedocumented in this encounter Care Teams Rn Liaison Relationship Specialty Start Date End Date Name, MD Praneeth [address] [place] [phone] PCP - General Family Medicine 05/04/16 Rut Carrizales RN [address] [facility] [place] [address] Registered Nurse Family Medicine 04/29/25 Melba Jain 04/29/25 documented as of this encounter
--- OUTSIDE RECORDS SUMMARY | 2025-05-14 15:35 | XMS_ITS | Encounter Summary ---
Author Organization [employer] Address 75 [facility] 7t [place] [address] Care Team Providers Care Sales Floor Associate Name Role Phone Name, Praneeth LECHUGA Primary Care Provider [phone] Rut Carrizales RN Unavailable [phone] Melba Jain Unavailable Reason for Visit * Reason Comments Med Refill Encounter Details Date Type Department Care Team (Late st Contact Info) Description 12/02/2023 Refill [facility] [address] [place], [place] [phone] Name, MD Praneeth [address] [place], [place] [phone] Nicotine dependence, uncomplicated, unspecified nicotine product type Social History Tobacco Use Types Packs/Day Years Used Date Smoking Tobacco: Every Day Cigarettes Smokeless Tobacco: Never Housing Stability Answer Date Recorded What is your housing situation today? I do not have housing (Staying with others, in a hotel, in a fdc, living outside on the street, on a [...] type documented in this encounter Care Teams Sales Floor Associate Relationship Specialty Start Date End Date Name, MD Praneeth [address] [place] [address] PCP - General Family Medicine 05/04/16 Rut Carrizales RN [address] [place] [address] Registered Nurse Family Medicine 04/29/25 Melba Jain 04/29/25 documented as of this encounter
--- OUTSIDE RECORDS SUMMARY | 2025-05-14 15:37 | XMS_ITS | Clinical Summary ---
Author Organization [employer] Address [address] [facility] [address] [place] [address] Care Team Providers Care Blocking Machine Tender Name Role Phone Name, Praneeth LECHUGA Primary Care Provider [phone] Rut Carrizales RN Unavailable [phone] Melba Jain Unavailable Allergies Active Allergy Reactions Criticality Noted Date Comments Haloperidol High 09/11/2013 Other reaction(s): Dystonia [place] 02/28/2025 Other Reaction(s): halcussion Olanzapine 03/09/2024 Oxycodone [...] daily until reaching 8 tabs once daily 10/22/19 24 Active hydrOXYzine pamoate (Vistaril) 50 MG capsule 09/20/19 24 Active cloZAPine (Fazaclo) 200 MG disintegrating tablet Take 200 mg by mouth at bedtime. 04/09/20 24 Active Banophen 50 MG capsule Take 2 capsules by mouth at bedtime. 04/09/20 24 Active ARIPiprazole ER 960 MG/3.2ML prefilled syringe Inject 3.2 mL into the muscle every 8 (eight) weeks. Active albuterol 108 (90 Base) MCG/ACT inhaler Inhale 2 puffs every 6 (six) hours if needed for wheezing. 18 g 11 10/13/19 25 026 Active omeprazole OTC (PriLOSEC OTC) 20 MG EC tabletIndications: Gastroesophageal reflux disease without esophagitis Take 1 tablet (20 mg) by mouth before breakfast. Do not crush, chew, or split. 30 tablet 2 11/27/19 25 Active nicotine polacrilex (Nicotine Mini) 2 MG lozengeIndications :Tobacco dependency Dissolve 1 lozenge (2 mg) in the mouth if needed for smoking cessation. Weeks 1-6: 1 lozenge every 1-2 hrs (max 5 lozenges every 6 hrs; 20 lozenges/day); Weeks 7-9: 1 lozenge every 2-4 hrs Weeks 10-12: 1 lozenge every 4-8 hrs 135 lozenge 2 02/29/20 25 Active fluticasone furoate (Arnuity Ellipta) 100 MCG/ACT inhalerIndications :Mild intermittent asthma without complication Inhale 1 puff Once per day. Rinse mouth with water after use to reduce aftertaste and incidence of candidiasis. Do not swallow. 1 each 04/30/20 25 026 Active acetaminophen (Tylenol Extra Strength) 500 MG tabletIndications: Jaw pain Take 1 tablet (500 mg) by mouth every 6 (six) hours if needed for mild pain for up to 14 days. 56 tablet 04/12/2025 3:08 PM EST 04/12/20 25 025 guaiFENesin (Robitussin) 100 MG/5ML liquidIndications: Mild intermittent asthma without complication Take 10 mL (200 mg) by mouth if needed in the morning, at noon, and at bedtime for cough for up to 10 days. 120 mL 04/30/20 25 025 Active Problems Problem Noted Date Diagnosed Date Bipolar 1 disorder ([facility]) 02/28/2025 Class 2 obesity 02/28/2025 Nicotine abuse 03/09/2024 Elevation of level of transa minase and lactic acid dehydrogenase (LDH) 03/09/2024 Schizoaffective disorder ([facility]) 01/25/2022 Bipolar affective disorder, current episode manic with psychotic symptoms ([facility]) 11/26/2020 Mild intermittent asthma 05/11/2016 Asthma 09/11/2013 Gastroesophageal reflux disease 09/11/2013 Depression 12/11/2010 Cannabis abuse 12/07/2010 Encounters Date Type Department Care Team Description 04/30/2025 9:30 AM EST Office Visit [address] [address] Praneeth Lanier MD Mild intermittent asthma without complication (Primary Dx); Nicotine abuse; Schizoaffective disorder, unspecified type (HCC) 04/30/2025 Travel 04/29/2025 Patient Outreach [address] [address] Praneeth Lanier MD Care Coordination (C3 -[facility] telephone call outreach) 04/29/[address] [address] Praneeth Lanier MD Chart Prep 04/29/2025 Patient Outreach [address] [address] Praneeth Lanier MD Care Coordination (C3 [facility] chart review) 04/29/2025 Patient Outreach [address] [address] Praneeth Lanier MD Care Management (C3 -CHART REVIEW/) 04/29/2025 Patient Outreach [address] [address] Praneeth Lanier MD 04/19/2025 Patient Outreach [facility] [address] [place] [address] Praneeth Lanier MD Pre-visit Planning (SDOH was already completed ) 04/12/2025 1:40 PM EST Office Visit [facility] [address] [place] [phone] Hilda Domínguez NP Sore throat (Primary Dx); Jaw pain 04/12/2025 Travel 04/10/[address] [address] Praneeth Lanier MD Medication 03/22/2025 9:30 AM EDT Office Visit [address] [address] Maggy Pride NP Callus of foot (Primary Dx); Halitosis 03/22/2025 Travel 03/07/2025 Results Follow-Up [facility] [address] [place] [address] Praneeth Lanier MD CBC auto differential, Comprehensive Metabolic Panel, Lipid Panel, Standard, Hemoglobin A1c 02/28/2025 11:30 AM EDT Office Visit [facility] [address] [facility] [place] [address] Praneeth Lanier MD Recurrent cough (Primary Dx); Tobacco dependency; Schizoaffective disorder, unspecified type (HCC); Encounter for immunization 02/28/2025 Travel 02/12/2025 Results Follow-Up [facility] [address] [place] [address] Praneeth Lanier MD T-SPOT .TB from Last 3 Months Immunizations Immunization Administration [...] Answer Date Recorded Patient Health Questionnaire-9 Score 3 04/30/2025 Patient Health Questionnaire-9 Score 3 04/30/2025 Last PHQ-9: Questionnaire Data Not on file 1 07/01/2024 Housing Stability Answer Date Recorded What is your housing situation today? I have housing today, but I am worried about losing housing in the future 04/30/[address] you li ve. Do you have problems with any of the following? None of the above 04/30/2025 Food Insecurity Answer Date Recorded Within the [...] getting things needed for daily living? No 04/30/2025 Utilities Answer Date Recorded In the past 12 months, has t he electric, gas, oil or water company threatened to shut off services in your home? No 02/28/2025 Depression Answer Date Recorded Patient Health Questionnaire-2 Score 1 04/30/2025 Internet Access Answer Date Recorded Internet Access [...] Sign Reading Time Taken Comments Blood Pressure 126/80 04/30/2025 9:24 AM EST Pulse 94 04/30/2025 9:24 AM EST Temperature 36.4 C (97.6 F) 04/30/2025 9:24 AM EST Respiratory Rate 23 04/30/2025 9:24 AM EST Oxygen Saturation 94% 04/30/2025 9:24 AM EST Inhaled Oxygen Concentration - - Weight 111 kg (245 lb) 04/30/2025 9:24 AM EST Height 172.7 cm (5' 8 ) 04/30/2025 9:24 AM EST Body Mass Index 37.25 04/30/2025 9:24 AM EST Plan of Treatment Health Maintenance Due Date Last Done Comments Family Planning (PISQ) 2001 HPV Vaccines (1 - Male 3-dose series) 2001 Hepatitis B Vaccines (1 of 3 - 19+ 3-dose series) 2005 COVID-19 Vaccine ( season) 2025 Alcohol/Substance Use Screening 04/30/2026 04/30/2025 Depression Screening 04/30/2026 04/30/2025, 04/30/20 25 Disability Screening 04/30/2026 04/30/2025 SDOH Screening 04/30/2026 04/30/2025 Tobacco Screening 04/30/2026 04/30/2025 Lipid Panel 03/01/2030 03/01/2025, 03/30, 06/26/2020 DTaP/Tdap/Td [...] Procedure Name Priority Date/Time Associated Diagnosis Comments POC PICKERING ID NOW STREP A Routine 04/12/2025 2:08 PM EST Sore throat POCT INFLUENZA B (ID NOW RAPID MOLECULAR) Routine 04/12/2025 2:08 PM EST Sore throat POCT INFLUENZA A (ID NOW RAPID MOLECULAR) Routine 04/12/2025 2:08 PM EST Sore throat POCT RAPID COVID ANTIGEN Routine 04/12/2025 2:08 PM EST Sore throat HEMOGLOBIN A1C Routine 03/01/2025 9:13 AM EDT [...] PM EDT Schizoaffective disorder, unspecified type (HCC) HEPATITIS C AB W/REFL TO HCV RNA, QN, PCR Routine 04/11/2024 11:46 AM EST Schizoaffective disorder, bipolar type (CMS/HCC) Tobacco dependency Screening examination for STI HIV 1/2 ANTIGEN/ANTIBODY, FOURTH GENERATION W/RFL Routine 04/11/2024 11:46 AM EST Schizoaffective disorder, bipolar type (CMS/HCC) Tobacco dependency Screening examination for STI from Last 3 Months or Most Recently Relevant to Health Maintenance Results * Influenza B (ID NOW Rapid Molecular) (04/12/2025 2:08 PM EST) Influenza B Negative Negative, Indeterminate [facility] Swab 04/12/2025 2:08 PM EST us Hilda Domínguez BOOK SHELVER POINT OF CARE TEST ENTER/EDIT O RDERABLES Final Result [facility] [address] [place] [address] [phone] * Influenza A (ID NOW Rapid Molecular) (04/12/2025 2:08 PM EST) [facility] Influenza A Negative Negative, Indeterminate [facility] Swab 04/12/2025 2:08 PM EST [facility] BOOK SHELVER POINT OF CARE TEST ENTER/EDIT O RDERABLES Final Result Performing Organization Address [facility] Co de Phone Number [facility] [address] [place] [address] [phone] * POCT ID NOW Rapid Strep A manually resulted (04/12/2025 2:08 PM EST) [facility] Rapid Strep A Screen Negative Negative, None Detected Swab 04/12/2025 2:08 PM [facility] POINT OF CARE TEST ENTER/EDIT O RDERABLES Final Result * POCT Rapid COVID Ag (04/12/2025 2:08 PM EST) [facility] Rapid COVID Ag Negative [facility] Swab 04/12/2025 2:08 PM EST [facility] B[facility]LVER POINT OF CARE TEST ENTER/EDIT O RDERABLES Final Result Performing Organization Address [facility] Co de Phone Number [facility] [address] [place] [address] [phone] * (ABNORMAL) CBC auto differential (03/01/2025 9:13 AM EDT) [facility] White Blood Count 8.8 4.8 - 10.8 X10*3/uL [facility] Red Blood Count 5.75 4.60 - 5.80 X10*6/uL [facility] Hemoglobin 14.7 14.0 - 18.0 g/dl [facility] Hematocrit 44.9 42.0 - 52.0 % [facility] Mean Corpuscular Volume 78.1(L) 80.0 - 98.0 fL [facility] Mean Corpuscular Hemoglobin 25.6(L) 27.0 - 33.0 pg [facility] Mean Corpuscular HGB Conc 32.7 31.0 - 36.0 g/dl [facility] Red Cell Distribution Width 14.6 11.0 - 16.0 % [facility] Platelet Count 187 160 - 400 X10*3/uL [facility] Mean Platelet Volume 10.2 9.4 - 12.4 fL [facility] Neutrophils Percent Auto 77.8(H) 45 - 73 % [facility] Imm Gran Pct Auto 0.5(H) 0.0 - 0.4 % [facility] Lymphocytes Percent Auto 13.7(L) 20 - 40 % [facility] Monocytes Percent Auto 6.9 2 - 11 % [facility] Eosinophils Percent Auto 0.9 0 - 4 % [facility] Basophils Percent Auto 0.2 0 - 2 % [facility] NRBC Pct Auto 0.0 0.0 - 0.2 /100WBC [facility] Neutrophils Absolute Auto 6.9 2.0 - 8.3 x10*3/uL [facility] Imm Gran Abs Auto 0.04(H) 0.00 - 0.03 X10*3/uL [facility] Lymphocytes Absolute Auto 1.2 1.2 - 4.9 X10*3/uL [facility] Monocytes Absolute Auto 0.6 0.1 - 1.2 X10*3/uL [facility] Eosinophils Absolute Auto 0.1 0.0 - 0.4 X10*3/uL [facility] Basophils Absolute Auto 0.0 0.0 - 0.2 X10*3/uL [facility] NRBC Abs Auto 0.000 0.0 - 0.012 X10*3/uL [facility] Blood Venous blood specimen / Unknown 03/01/2025 9:13 AM EDT 03/01/2025 9:13 AM EDT us Praneeth Lanier MD LAB BLOOD ORDERABLES Final Resul t Performing Organization Address [facility] Phone Number [facility] [address] [place] [phone] * Hemoglobin A1c (03/01/2025 9:13 AM EDT) Hemoglobin A1c 5.6 <6.0 % [facility] Comment:Hemoglobin A1C Refer ence Range Adults: 4.8 - 6.0 % Non diabetic: < 6.0 % Goal: < 7.0 %Additional Action Suggested: > 8.0 %Note: Hemoglobin A1c results are invalid for patients with abnormal amounts of HbF. Blood transfusions may impact the HbA1c concentration in the patient sample. Estimated Average Glucose 114 mg/dL [facility] Comment:eAG = Estimated ave rage glucose which is %A1C expressed asaverage glucose, using the formula of the [id number] Glucose study (ADAG), Diabetes Care, Vol.31,#8,Dec. 2007 Blood Venous blood specimen / Unknown 03/01/2025 9:13 AM EDT 03/01/2025 9:13 AM EDT us Praneeth Lanier MD LAB BLOOD ORDERABLES Final Resul t Performing Organization Address [facility] Phone Number [facility] [address] [place] [phone] * (ABNORMAL) Lipid Panel, Standard (03/01/2025 9:13 AM EDT) Triglycerides 58 <150 mg/dL [facility] Comment:Desirable Triglyceri de: less than 150 mg/dLBorderline High Triglyceride 150-199 mg/dLHigh Triglyceride: 200-499 mg/dLVery High Triglyceride: greater than or equal to 5OO mg/dL Cholesterol 168 <200 mg/dL [facility] Comment:Desirable Cholestero l: less than 200 mg/dLBorderline High Cholesterol: 200-239 mg/dLHigh Cholesterol: greater than 239 mg/dL LDL Cholesterol Calculated 124(H) <100 mg/dL [facility] Comment:Desirable LDL: less than 100 mg/dLNear Optimal/Above Optimal LDL: 110- 129 mg/dLBorderline High LDL: 130-159 mg/dLHigh LDL: 160-189 mg/dLVery High LDL: greater than or equal to 190 mg/dL HDL Cholesterol 33(L) >40 mg/dL [facility] Comment:Desirable HDL: great er than 40 mg/dL Note: This HDL assay may give artificially low results in patients with liver disease. Blood Venous blood specimen / Unknown 03/01/2025 9:13 AM EDT 03/01/2025 9:13 AM EDT us Praneeth Name LAB BLOOD ORDERABLES Final Resul t [facility] [address] [place] [phone] * (ABNORMAL) Comprehensive Metabolic Panel (03/01/2025 9:13 AM EDT) Sodium 140 135 - 145 mmol/L [facility] Potassium 3.5 3.3 - 5.1 mmol/L [facility] Chloride 110(H) 96 - 108 mmol/L [facility] Carbon Dioxide 22 22 - 29 mmol/L [facility] Anion Gap 12 12 - 20 [facility] Urea Nitrogen (BUN) 26(H) 9 - 16 mg/dL [facility] Creatinine, Serum 1.18 0.5 - 1.4 mg/dL [facility] Estimated Glomerular Filt Rate >60 [facility] Comment:Chronic Kidney Disea se: Estimated GFR < 60 mL/min/1.60a3Abbhtv Kidney Disease: Estimated GFR < 15 mL/min/1.73m2 Glucose 107 60 - 115 mg/dL [facility] Calcium 9.1 8.4 - 10.2 mg/dL [facility] Bilirubin, Total 0.7 0.0 - 1.0 mg/dL [facility] Aspartate Amino Transferase 28 5 - 37 U/L [facility] Alanine Aminotransferase 36 0 - 40 U/L [facility] Total Protein 6.7 6.5 - 8.0 g/dL [facility] Albumin Level 4.6 3.5 - 5.0 g/dL [facility] Alkaline Phosphatase 84 39 - 117 U/L [facility] Blood Venous blood specimen / Unknown 03/01/2025 9:13 AM EDT 03/01/2025 9:13 AM EDT Praneeth Lanier MD LAB BLOOD ORDERABLES Final Resul t Performing Organization Address City/[facility]/ZIP Co de Phone Number [facility] [address] [place] [phone] [phone] * ECG 12 lead (02/28/2025 12:52 PM EDT) Narrative Name, MD Praneeth - 02/28/2025 12:52 PM EDT NSR, HR 92, no ST-T changes, QTC of 425 Praneeth Lanier MD ECG ORDERABLES Final Result * Hepatitis C Antibody with Reflex to HCV, RNA, Quantitative, Real-Time PCR (04/11/2024 11:46 AM EST) Hepatitis C Antibody Nonreactive Nonreactive [facility] Comment:Antibodies to HCV no t detected; does not exclude early acuteHCV infection. Blood Venous blood specimen / Unknown 04/11/2024 11:46 AM EST 04/11/2024 11:46 AM EST Praneeth Lanier MD LAB BLOOD ORDERABLES Final Resul t Performing Organization Address City/[facility]/ZIP Co de Phone Number [facility] [address] [place] [address] [phone] * HIV-1/2 Antigen and Antibodies, Fourth Generation, with Reflexes (04/11/2024 11:46 AM EST) HIV AB/AG Nonreactive Nonreactive [facility] Comment:HIV-1 p24 Ag and/or HIV-1/HIV-2 Ab not detected.A test result that is nonreactive does not exclude thepossibility of exposure to or infection with HIV-1 and/orHIV-2. Nonreactive results in this assay for individualswith prior exposure to HIV-1 and/or HIV-2 may be due toantigen and antibody levels that are below the limit ofdetection of this assay.The [employer] HIV Ag/Ab Combo assay result andsupplemental assay results should be interpreted inconjunction with the patient's clinical presentation,history and other laboratory results. If the results areinconsistent with clinical evidence, additional testing issuggested to confirm the result. Blood Venous blood specimen / Unknown 04/11/2024 11:46 AM EST 04/11/2024 11:46 AM EST us Praneeth Lanier MD LAB BLOOD ORDERABLES Final Resul t Performing Organization Address City/State/[facility] Co de Phone Number [facility] [address] [place] [address] [phone] from Last 3 Months or Most Recently Relevant to Health Maintenance Insurance C3 Care Teams Blocking Machine Tender Relationship Specialty Start Date End Date Name, MD Praneeth [address] [place] [phone] PCP - General Family Medicine 05/04/16 Rut Carrizales RN [address] [place] [phone] Registered Nurse Family Medicine 04/29/25 Melba Jain 04/29/25
--- OUTSIDE RECORDS SUMMARY | 2025-05-14 15:39 | XMS_ITS ---
Author Organization [employer] Address [address] [facility] [address] [place] [address] Care Team Providers Care Evp Name Role Phone Name, Praneeth LECHUGA Primary Care Provider [phone] Rut Carrizales RN Unavailable [phone] Melba Jain Unavailable CM Complex Status:Outreach In Progress (Enrolling) Start date:04/29/2025 Enrollment reason:ADT Feed Overview [facility] ED 04/27/25 Case Team Name Relationship Phone Rut Carrizales RN(Responsible Staff) Registered Nurse Continued Care and Services Coordination
== END 2025-05-14 11:48 | disposition home or self-care (01) ==
LOC: HO.LABR 11:47
PROVIDERS: PCP Internal Medicine Geriatric Medicine; Visit Provider Nurse Practitioner Psychiatric/Mental Health
DX: Z79.899 Other long term (current) drug therapy (principal)
CPT/HCPCS: 36415; 85007; 85025; 85027